=== PATIENT | male | born 1970 | race Caucasian/White ===

== ENCOUNTER 2016-12-23 08:04 | Day surgery (SDC) | payer OTHER ==
--- NOTE | 2016-12-02 06:04 | History and Physical ---
History & Physical CC: End stage renal disease on dialysis HPI: Mr. Tapia states that he has been on dialysis through a left forearm arteriovenous fistula since July of 2015 and it has been functioning well until recently. He is now having difficulty with his runs at dialysis. He denies other complaints at this time including headaches, fevers, chills, dizziness, chest pain, shortness of breath, abdominal pain, nausea, vomiting, diarrhea, constipation, dysuria, hematuria, rest pain, claudication, nonhealing wounds or ulcers or other complaints. ALLERGIES: PENICILLIN. HOME MEDICATIONS: Reconciled on the chart and include the following: Amlodipine, aspirin, atorvastatin, Benadryl, famotidine, Lantus, levothyroxine, metoprolol, NovoLog FlexPen, Renagel, tamsulosin and Tylenol. PAST MEDICAL HISTORY: Positive for end-stage renal disease on hemodialysis, coronary artery disease, myocardial infarction, hypertension, hypercholesterolemia, type 2 diabetes mellitus on insulin, hypothyroidism. PAST SURGICAL HISTORY: Positive for removal of scar tissue from his right eye, left forearm arteriovenous fistula creation and coronary artery bypass grafting x5 in 2013. FAMILY HISTORY: Positive for bladder cancer, coronary artery bypass grafting, carotid stenosis, diabetes mellitus, hypertension, TIA and tobacco use in his mother, [place], heart disease, hypertension and tobacco abuse in his father. SOCIAL HISTORY: Negative for tobacco, alcohol or drug use. REVIEW OF SYSTEMS: Negative for fatigue, fevers, sweats, weight loss, exercise intolerance, abnormal moles or rashes, vision changes or photophobia, ear pain, sinus problems or sore throat, cough, shortness of breath, hemoptysis or wheezing, chest pain, palpitations or syncope. He admits to occasional edema of his bilateral lower extremities. He denies abdominal pain, nausea, vomiting , diarrhea, constipation, dysuria, hematuria, rest pain, claudication, muscle weakness, headaches, dizziness, numbness or seizures. PHYSICAL EXAM: His vital signs today are as follows: Blood pressure of 154/70 in the right arm and unable to obtain left arm due to his AV fistula. His heart rate is 65, oxygen saturation was 99% on room air. The patient is 66 inches tall and weighs 227 pounds. Constitutional: In general, patient is an obese and mildly chronically ill-appearing middle-aged male in no acute distress. He ambulates without assistance and is active, alert and oriented x4 with normal recent and remote memory. His head is normocephalic and atraumatic. His eyes are EOMI. His ENMT exam demonstrates no hearing loss, rhinorrhea or pharyngeal erythema. Neck is supple, nontender with midline trachea without masses or crepitus. Lung exam demonstrates no dyspnea. They are decreased slightly throughout, but are clear to auscultation bilaterally. Cardiovascular exam demonstrates a nondisplaced apical impulse with a regular rate and rhythm without murmurs, lifts, heaves, thrills or gallops. Peripheral pulses are full and equal in all extremities unless otherwise noted, specifically they are normal in his carotid, brachial, radial and femoral pulses. His bilateral lower extremity distal pulses are +2 DP and PT. He has brisk capillary refill and no sign of distal ischemia. He has no bruits noted in his carotid, abdominal or femoral areas. Abdomen soft, nontender with normoactive bowel sounds in all 4 quadrants without guarding or rebound. There is no flank or CVA tenderness. There are no pulsatile mass appreciable. There are no surgical scars noted aside from his chest scar from his cardiac surgery. His abdomen is somewhat distended due to body habitus, but it does appear to be soft. His bilateral upper extremities demonstrate no cyanosis, edema, clubbing, varicosities or ulcers. His bilateral lower extremities demonstrate + 1 edema. There is no significant varicosities or ulcerations and no discoloration. Neurologically, patient is grossly intact cranial nerves and grossly intact sensation. His left forearm does demonstrate good thrill and bruit through his wrist arteriovenous fistula. ASSESSMENT: End-stage renal disease on hemodialysis. Malfunctioning av fistula left arm PLAN: Patient is admitted for a fistulogram and possible intervention. I have discussed the risks options and benefits of the procedure with the patient. The patient understands the risks options and benefits and agrees to the procedure.
[2016-12-23] VITALS (9 sets, daily range): BP systolic 122–139; BP diastolic 67–79; PULSE 66–68; TEMP 36.5–36.7; O2SAT 97–100; Ht 152.4 cm; Wt 102.0 kg
[~2016-12-23] VITALS: Ht 152.4 cm; Wt 102.0 kg
[~2016-12-23 08:04] MED LIST: ACET-1256 PO; ASPI81TA28 PO; ATOR-26 PO; CLINDAMYCIN 600 MG/54 ML D5W IV SCH; CRG125 PO; D5W AND 1/4NSS 1,000 ML IV SCH; D5W AND 1/4NSS 1000 ML IV SCH; DIPH1TAB PO; IMDSR30 PO; INSDGI SC; LEVO25TA5 PO; NRV5 PO; NTRGSL/4 UT; NVLGI SC; SEVE800T7 PO; TAMS0.4C38 PO
[2016-12-23] MEDS ORDERED: IMDSR/30 PO (08:42)
[2016-12-23] MEDS ORDERED: AMLO-114 PO (08:42)
[2016-12-23] MEDS ORDERED: CRG125 PO (08:42)
--- NOTE | 2016-12-23 09:56 | Procedure Note ---
Pre-Mod Sedation Assessment General Date of Moderate Sedation: Dec 23, 2016. Vital Signs: Vital Signs Past 12 Hours Date Time Temp Pulse Resp B/P Pulse Ox O2 Delivery O2 Flow Rate FiO2 12/23/16 09:02 36.6 68 18 139/79 100 Room Air Pre-Sedation Airway Assessment Oral Cavity: WNL Smoking Status: Never Smoker Mallampati Classification: Class I ASA Classification: Class II Notes The planned sedation has been discussed with the patient and consent obtained. I have identified the patient, determined the appropriateness of sedation and have assessed the patient immediately prior to the procedure. All medicine(s) and interventions are by my order.
--- NOTE | 2016-12-23 09:56 | History & Physical Bridge Note ---
H&P Re-Evaluation Bridge Note: I have examined the patient, reviewed the History & Physical and in the interval since the performance of the History & Physical I have noted the following changes of clinical significance: No changes noted
[2016-12-23] MEDS ORDERED: FENTANYL CITRATE INJ 50 MCG/1 ML 2 ML VIAL ONE (10:23)
[2016-12-23] MEDS ORDERED: MIDAZOLAM HCL 1 MG/ML 2ML VIAL ONE (10:24)
[2016-12-23] MEDS: CLINDAMYCIN 600 MG/54 ML D5W IV SCH (10:30)
[2016-12-23] MEDS ORDERED: FENTANYL CITRATE INJ 50 MCG/1 ML 2 ML VIAL IV ONE (10:48)
[2016-12-23] MEDS ORDERED: HEPARIN SOD (PORCINE) 1000 UNIT/ML 10 ML VIAL ONE (10:54)
[2016-12-23] MEDS ORDERED: HEPARIN SOD (PORCINE) 1000 UNIT/ML 10 ML VIAL IV ONE (10:59)
[2016-12-23] MEDS ORDERED: NITROGLYCERIN/D5W 100MCG/ML 20ML SYR ONE (11:56)
[2016-12-23] MEDS ORDERED: LIDOCAINE HCL 1% 20 ML VIAL INJ ONE (12:04)
[2016-12-23] MEDS ORDERED: D5W AND 1/4NSS 1,000 ML IV SCH (12:04)
[2016-12-23] MEDS ORDERED: OPTIRAY 300 IV ONE (12:04)
--- NOTE | 2016-12-23 12:08 | [facility] Post Operative Brief Note ---
Immediate Operative Summary Operative Date Dec 23, 2016. Pre-Operative Diagnosis Malfunctioning Fistula Post-Operative Diagnosis Same Procedure(s) Performed Arteriogram, COSTUME CUTTER Venous Balloon assisted maturation (BAM) Surgeon Dr. Schmidt Lard Mixer Surgeon(s) Dr. Serrano Estimated Blood Loss 5 Findings Good thrill Specimens None Anesthesia Local Complication(s) None Disposition
--- NOTE | 2016-12-23 12:09 | Discharge Instructions ---
Discharge Instructions Date of Service Dec 23, 2016. Visit Reason for Visit: End Stage Renal Disease Discharge Discharge Diagnosis / Problem: Non maturation of left arm arteriovenous fistula Discharge Goals Goal(s): Therapeutic intervention Activity Recommendations Activity Limitations: per Instructions/Follow-up section Anesthesia . Post Anesthesia Instructions: If you have had General Anesthesia or IV Sedation: * Do not drive today. * Resume driving when surgeon permits. * Do not make important decisions or sign legal documents today. * Call surgeon for: 1. Temperature elevations greater than 101 degrees F. 2. Uncontrollable pain. 3. Excessive bleeding. 4. Persistent nausea and vomiting. 5. Medication intolerance (nausea, vomiting or rash). * For nausea and vomiting use only clear liquids such as: tea, soda, bouillon until nausea subsides, then gradually increase diet as tolerated. * If you have any concerns or questions, call your surgeon's office. If physician is unavailable and it is an emergency, call 911 or go to the nearest emergency room. . Instructions / Follow-Up Instructions / Follow-Up Call [phone] to schedule a follow up appointment if one not already scheduled. SPECIAL CARE INSTRUCTIONS: Medications: * Continue to take your medications as directed. If you have been given a prescription for Plavix, please fill it immediately and take as directed. Incision Care: * Your puncture site may have some bruising and minor swelling for about one week. * You will have a small dressing covering your puncture site. You may remove the dressing after 24 hours and shower. You may let the warm soapy water run over it, but be sure to dry the puncture site well and keep it dry. * DO NOT IMMERSE THE INCISION IN A TUB/POOL/etc. UNTIL HEALED. * Puncture sites should be kept covered with a band-aid until it begins to heal. Restrictions: * Depending on whether you leg or arm was punctured to access the arteries, you will be required to lay flat, hold your arm still, or both, for about 4 hours after the procedure to prevent bleeding. * Limit your activity for the first 48 hours. You may walk and go up and down steps. Avoid excessive bending or movement at the puncture site. Possible Complications: * Excessive Swelling - after blood flow is improved you may notice increased swelling in the lower legs. This is a normal response. This usually depends on the amount of blockages in the leg, how long they have been there prior to your procedure and how much blood flow was restored. Elevating your legs will help to improve this. Please notify our office ([phone] ) if the swelling does not go away after lying in bed overnight. * Infection/Drainage/Bleeding - Drainage or bleeding from the puncture site should be minimal. If you have excessive bleeding or drainage, call our office ([phone]) right away. * Pain - You may experience some mild pain or soreness at your puncture site. If your pain does not improve, please contact our office ([phone]). Call your doctor and seek emergent treatment if you develop: * Temperature above 101 degrees * Any fever or chills * Any redness or purulent drainage from the puncture site * Any new dusky/blue colored toes or feet with coolness or sharp or aching pain. SKIN IRRITATION: * You may experience some redness and/or swelling in the area where radiation was administered. If any skin irritation occurs, please contact your family physician. FOLLOW UP VISIT: Keep any scheduled doctor appointments. Diet Recommendations Recommended Home Diet: resume previous diet Procedures Procedures Performed: Arteriogram, BELT PUNCHER Venous Balloon assisted maturation (BAM) Pending Studies Studies pending at discharge: no Medical Emergencies . Who to Call and When: Medical Emergencies: If at any time you feel your situation is an emergency, please call 911 immediately. . Non-Emergent Contact Non-Emergency issues call your: Surgeon . . "Provider Documentation" section prepared by Michael Serrano.
[2016-12-23] MEDS ORDERED: OXYCODONE/ACETAMINOPHEN 5-325 TAB PO PRN (12:15)
--- NOTE | 2016-12-23 13:10 | DIAGNOSTIC IMAGING REPORT ---
DATE OF PROCEDURE: 12/23/2016 PREOPERATIVE DIAGNOSIS: Malfunctioning left wrist AV fistula. POSTOPERATIVE DIAGNOSIS: Same. PROCEDURES: 1. Ultrasound-guided left brachial access and a left upper extremity arteriogram. 2. Balloon angioplasty of left proximal and mid cephalic vein for fistula maturation. SURGEON: Dr. Michael Serrano. USABILITY SPECIALIST: Dr. Chapincito Schmidt. ANESTHESIA: Local plus fentanyl. COMPLICATIONS: None. INDICATIONS: This is a 46-year-old gentleman with end-stage renal disease currently on dialysis. He currently uses a peritoneal dialysis catheter. Previously, it had been placed in the left radiocephalic AV fistula. This was noted to be quite pulsatile and without a thrill. His hospital medical biller recommended a fistulogram and/or arteriogram for maintenance of his left arm hemodialysis access. He understood the risks, benefits and alternatives of the procedure and agreed to proceed. DESCRIPTION OF PROCEDURE: The patient was taken to the endovascular suite and placed in the supine position. The left upper extremity was prepped and draped in the normal sterile fashion. A time-out was performed and all parties agreed to correct patient and procedure to be performed. Appropriate surgical prophylactic antibiotics were administered within 1 hour of the incision. Under ultrasound guidance, the left brachial artery was accessed on the first attempt. This was done with a micropuncture needle. The needle was changed to a micropuncture catheter over micropuncture wire to. Left upper extremity arteriogram showed a widely patent brachial artery. There was a good arterial flow to the hand. The fistula could be identified coming off the radial artery at the level of the wrist. There was a fairly long segment of high-grade stenosis throughout the proximal portion of the fistula. Further angiogram pictures also showed several areas of stenosis in the outflow cephalic vein. We elected to use a balloon to aid in maturation of the cephalic vein. Therefore, an 0.014 wire was brought onto the field and the sheath was upsized to a 4-Slovenian sheath. Using the 0.014 wire and an angled glide catheter, I was able to navigate into the fistula. The wire passed easily into the cephalic vein outflow. The proximal cephalic vein was sequentially angioplastied with 2 mm balloon followed by a 3 mm balloon followed by a 4 mm balloon. The completion angiography after this showed moderate stenosis more distal in the cephalic vein outflow. Therefore, this area was also ballooned with the 4 mm balloon. Completion angiogram showed widely patent brachial and radial arteries. The fistula filled nicely and the outflow veins all were patent. Following balloon angioplasty, there was a much improved thrill in the fistula. There were Doppler signals in the radial, ulnar and palmar arch on to the digital arteries. The patient's hand was warm. He was transferred to recovery room in satisfactory condition. There were no apparent complications. [facility]OSPITALElizabeth
[2017-02-03] MEDS ORDERED: FRS/80 PO (09:45)
== END 2016-12-23 14:45 | disposition home or self-care (01) ==
LOC: C.ACU 08:04
PROVIDERS: ATTEND Surgery Vascular Surgery
DX: T82.898A Other specified complication of vascular prosthetic devices, implants and grafts, initial encounter (principal); Y83.1 Surgical operation with implant of artificial internal device as the cause of abnormal reaction of the patient, or of later complication, without mention of misadventure at the time of the procedure; I12.0 Hypertensive chronic kidney disease with stage 5 chronic kidney disease or end stage renal disease; E11.22 Type 2 diabetes mellitus with diabetic chronic kidney disease; N18.6 End stage renal disease; Z79.4 Long term (current) use of insulin; E03.9 Hypothyroidism, unspecified; Z99.2 Dependence on renal dialysis; I25.2 Old myocardial infarction; Z80.52 Family history of malignant neoplasm of bladder

== ENCOUNTER → 2017-02-03 | Day surgery (SDC) | payer OTHER ==
[2017-01-24 09:51] VITALS: Ht 167.6 cm; Wt 104.5 kg
[~2017-02-03] VITALS: Ht 167.6 cm; Wt 104.5 kg
[~2017-02-03] MED LIST changes: +500ML BSSPLUS 0.5ML EPI1:1000 IRRIG ONE; +ACETAMINOPHEN 325 MG TAB PO PRN; +AMLO-114 PO; +ATROPINE SULFATE 0.1 MG/ML 5ML SYR IV PRN; +ATROPINE SULFATE 1% OP OINT PER APPLICATION CHARGE ONE; +BD INSULIN; +BSS FLUSH ONE; +BUPIVACAINE HCL 0.75% 10 ML AMP/VIAL ONE; -CLINDAMYCIN 600 MG/54 ML D5W IV SCH; -D5W AND 1/4NSS 1,000 ML IV SCH; -D5W AND 1/4NSS 1000 ML IV SCH; +DEXAMETHASONE SOD INJ 4 MG/ML VIAL ONE; -DIPH1TAB PO; +DIPH1TAB87 PO; +EpHEDrine SULFATE INJ 50 MG/ML AMP IV PRN; +EpINEphrine INJ 1MG/ML AMP 1 MG/ML AMP ONE; +FENTANYL CITRATE INJ 50 MCG/1 ML 2 ML VIAL IV PRN; +FRS/80 PO; +HYALURONIDASE HUMAN 150 UNIT/ML INJ ONE; +IMDSR/30 PO; -IMDSR30 PO; +INSPMPNVLG; +LACTATED RINGER'S 1000ML 500 ML IV SCH; +LIDOCAINE HCL 2% 2 ML VIAL (20MG/ML) ONE; +LIDOCAINE MPF 4% INJ INJ ONE; +MIDAZOLAM HCL 1 MG/ML 2ML VIAL ONE; +NEOMYCIN/POLYMYX/DEXAMETH OP OINT PER APP CHARGE ONE; -NRV5 PO; +OCUCOAT 1 ML SOLN IO ONE; +ONDANSETRON INJ 2 MG/ML 2 ML VIAL IV PRN; +PHENYLEPHRINE HCL 2.5% OP SOLN PER DROP CHARGE OPL SCH; +PROPARACAINE 0.5% OP SOLN PER DROP CHARGE OPL SCH; +PROPOFOL IV EMULSION 10 MG/ML 20 ML VIAL IV ONE; +TETRACAINE HCL (OPHTH) 60 DROPS/4 ML BTL OP ONE; +TIMOLOL MALEATE 0.5% OP SOLN PER DROP CHARGE ONE; +TROPICAMIDE 1% OP SOLN PER DROP CHARGE OPL SCH; +VANCOMYCIN HCL 1000MG/20ML VIAL ONE
[2017-02-03] MEDS: PHENYLEPHRINE HCL 2.5% OP SOLN PER DROP CHARGE OPL SCH ×2 (09:51→09:56)
[2017-02-03] MEDS: TROPICAMIDE 1% OP SOLN PER DROP CHARGE OPL SCH ×2 (09:52→09:57)
--- NOTE | 2017-02-03 11:01 | History & Physical Bridge - SC ---
H&P Re-Evaluation Bridge Note: pt has diabetic retinopathy of the left eye and is here for vitrectomy of the left eye. I have examined the patient, reviewed the History & Physical and in the interval since the performance of the History & Physical I have noted the following changes of clinical significance: No changes noted
--- NOTE | 2017-02-03 12:36 | [facility] Operative Report ---
Operative Report Date of Service Feb 03, 2017. Operative Report PREOPERATIVE DIAGNOSIS: Diabetic retinopathy with vitreous hemorrhage, epiretinal membrane and traction, left eye. ICD 10: H43.12, H35.372 POSTOPERATIVE DIAGNOSIS: same. PROCEDURE: 1. Pars plana vitrectomy, 23 gauge. 2. Membrane peeling. 3. Endolaser. All to the left eye. CPT CODE: 55110 SURGEON: Santosh Abarca D.O. COMPLICATIONS: None. ESTIMATED BLOOD LOSS: None. SPECIMENS: None. ANESTHESIA: Retrobulbar block and MAC INDICATIONS FOR PROCEDURE: Surgery is indicated to decrease risk of vision loss and potentially improve vision. CONSENT: The risks, benefits and alternatives were discussed with the patient including but not limited to decreased visual acuity, failure to achieve desired results, loss of the eye, infection, pain, glaucoma, lens changes, retinal tears, retinal detachment, the need for more procedures, drooping of the eyelid, blindness, and double vision. The patient is aware of risks and consents to the surgery. Consent is signed and on the chart. OPERATION AND FINDINGS: The patient was brought to the operating room where the patient was identified by name, date, and medical record number. The surgical site was confirmed with the informed written consent. The patient was sedated by the anesthesiology team after which a 50:50 mixture of 4% lidocaine and 0.75% bupivacaine with hyaluronidase was administered in a standard retrobulbar fashion. A total of 4 ml was administered without difficulty. The patient was then prepped and draped in the usual sterile manner for retinal surgery. A wire lid speculum was placed and an Rasta 23-gauge trocar cannula system was employed. The inferior temporal trocar cannula was first placed in an angled fashion 3.75mm posterior to the surgical limbus and the infusion cannula was inserted into this cannula after which the intravitreal position was verified prior to turning the infusion on. Two more trocar cannulas were then inserted in an angled fashion, one in the superior temporal, and one in the superior nasal quadrant both 3.75mm posterior to the surgical limbus. A light pipe and vitrector were then introduced into the eye and the BIOM wide angle viewing system was brought into place. Posterior inspection revealed partially regressed proliferative diabetic retinopathy with fibrovascular membranes along the inferior temporal arcade. There was also noted well placed previous laser treatment. Standard core vitrectomy was performed and the vitreous was insured to be totally detached from the posterior pole with the aid of the vitrector. The areas of regressed neovascularization were segmented with the vitrector and scissors. Endolaser was used to perform fill-in paredes retinal photocoagulation. At this point a flat contact lens was placed on the surface of the eye and a flex loop and ILM forceps were used to gently peel the diabetic membranes and segment them with scissors and the vitrector without difficulty. At this point scleral depression was performed for 360 degrees and no retinal tears or detachments were noted. The trocar cannulas were then removed and 8-0 Vicryl suture was placed at all the sites. The intraocular pressure was found to be within normal limits by palpation and subconjunctival injections of Kefzol and dexamethasone were administered inferiorly and superiorly. The wire lid speculum was removed. Maxitrol was applied to the surface of the eye. A light patch and shield were taped over the surface of the eye and the patient left the Operating Room in stable condition having tolerated the procedure well. DISPOSITION: The patient has an appointment the following morning in the Ophthalmology Clinic. The patient is to call immediately if there are any problems overnight. I attest to the content of the Intraoperative Record and any orders documented therein. Any exceptions are noted below.
--- NOTE | 2017-02-03 12:40 | Discharge Instructions-SurgCtr ---
Discharge Instructions Date of Service Feb 03, 2017. Visit Reason for Visit: Vitreous Hemorrhage Discharge Discharge Diagnosis / Problem: same Discharge Goals Goal(s): Improve function Activity Recommendations Activity Limitations: per Instructions/Follow-up section Anesthesia . Post Anesthesia Instructions: If you have had General Anesthesia or IV Sedation: * Do not drive today. * Resume driving when surgeon permits. * Do not make important decisions or sign legal documents today. * Call surgeon for: 1. Temperature elevations greater than 101 degrees F. 2. Uncontrollable pain. 3. Excessive bleeding. 4. Persistent nausea and vomiting. 5. Medication intolerance (nausea, vomiting or rash). * For nausea and vomiting use only clear liquids such as: tea, soda, bouillon until nausea subsides, then gradually increase diet as tolerated. * If you have any concerns or questions, call your surgeon's office. If physician is unavailable and it is an emergency, call 911 or go to the nearest emergency room. . Instructions / Follow-Up Instructions / Follow-Up * May take Tylenol if needed for discomfort. * Do NOT remove eye shield. * NO straining, heavy lifting (>15 pounds) or bending below waist. * Avoid getting water or soap directly into operative eye. * Do NOT rub eye. If you experience increasing eye pain not relieved by medication, please contact us immediately at [phone]. If you are unable to reach someone at the above number, call [phone] and ask to speak with the EYE DOCTOR [facility] COIL WINDER. Inform them that you are a Dr. Abarca patient who had recent surgery. Diet Recommendations Home Diet: resume previous diet Procedures Procedures Performed: Left Eye 23 Gauge Vitrectomy With Laser, Membrane Peeling Pending Studies Studies pending at discharge: no Medical Emergencies . Who to Call and When: Medical Emergencies: If at any time you feel your situation is an emergency, please call 911 immediately. . Non-Emergent Contact Non-Emergency issues call your: Raw Stock Machine Feeder . . "Provider Documentation" section prepared by Santosh Abarca. .
[2017-02-03 12:44] VITALS: TEMP 36.6
--- NOTE | 2017-02-03 12:48 | Anesthesia Progress Nt - [facility] ---
Anesthesia Post Op Note Date & Time Feb 03, 2017 at 12:47 Vital Signs Pain Intensity: 0 Vital Signs Past 12 Hours Date Time Temp Pulse Resp B/P Pulse Ox O2 Delivery O2 Flow Rate FiO2 02/03/17 12:44 36.6 78 18 168/83 98 Room Air 02/03/17 09:42 36.6 75 20 184/90 99 Room Air Notes Mental Status: alert / awake / arousable, participated in evaluation Pt Amnestic to Procedure: Yes Nausea / Vomiting: adequately controlled Pain: adequately controlled Airway Patency, RR, SpO2: stable & adequate BP & HR: stable & adequate Hydration State: stable & adequate Anesthetic Complications: no major complications apparent
[2017-02-03 12:54] VITALS: BP 172/83; PULSE 77; O2SAT 97
== END | disposition home or self-care (01) ==
LOC: X.SURG 08:31
PROVIDERS: ATTEND Ophthalmology
DX: E11.3592 Type 2 diabetes mellitus with proliferative diabetic retinopathy without macular edema, left eye (principal); H43.12 Vitreous hemorrhage, left eye; H35.372 Puckering of macula, left eye; E11.42 Type 2 diabetes mellitus with diabetic polyneuropathy; I25.5 Ischemic cardiomyopathy; I25.2 Old myocardial infarction; E66.9 Obesity, unspecified; I25.10 Atherosclerotic heart disease of native coronary artery without angina pectoris; Z95.1 Presence of aortocoronary bypass graft; Z79.4 Long term (current) use of insulin; Z79.82 Long term (current) use of aspirin

== ENCOUNTER 2017-06-12 10:38 | Emergency (ER) | payer OTHER ==
[~2017-06-12] VITALS: Ht 167.6 cm; Wt 105.9 kg
[~2017-06-12 10:38] MED LIST changes: -500ML BSSPLUS 0.5ML EPI1:1000 IRRIG ONE; -ACETAMINOPHEN 325 MG TAB PO PRN; -ATROPINE SULFATE 0.1 MG/ML 5ML SYR IV PRN; -ATROPINE SULFATE 1% OP OINT PER APPLICATION CHARGE ONE; -BD INSULIN; -BSS FLUSH ONE; -BUPIVACAINE HCL 0.75% 10 ML AMP/VIAL ONE; -DEXAMETHASONE SOD INJ 4 MG/ML VIAL ONE; +DIPH1TAB PO; -DIPH1TAB87 PO; -EpHEDrine SULFATE INJ 50 MG/ML AMP IV PRN; -EpINEphrine INJ 1MG/ML AMP 1 MG/ML AMP ONE; -FENTANYL CITRATE INJ 50 MCG/1 ML 2 ML VIAL IV PRN; -HYALURONIDASE HUMAN 150 UNIT/ML INJ ONE; -INSPMPNVLG; -LACTATED RINGER'S 1000ML 500 ML IV SCH; -LIDOCAINE HCL 2% 2 ML VIAL (20MG/ML) ONE; -LIDOCAINE MPF 4% INJ INJ ONE; -MIDAZOLAM HCL 1 MG/ML 2ML VIAL ONE; -NEOMYCIN/POLYMYX/DEXAMETH OP OINT PER APP CHARGE ONE; -OCUCOAT 1 ML SOLN IO ONE; -ONDANSETRON INJ 2 MG/ML 2 ML VIAL IV PRN; -PHENYLEPHRINE HCL 2.5% OP SOLN PER DROP CHARGE OPL SCH; -PROPARACAINE 0.5% OP SOLN PER DROP CHARGE OPL SCH; -PROPOFOL IV EMULSION 10 MG/ML 20 ML VIAL IV ONE; -TETRACAINE HCL (OPHTH) 60 DROPS/4 ML BTL OP ONE; -TIMOLOL MALEATE 0.5% OP SOLN PER DROP CHARGE ONE; -TROPICAMIDE 1% OP SOLN PER DROP CHARGE OPL SCH; -VANCOMYCIN HCL 1000MG/20ML VIAL ONE
[2017-06-12 10:41] VITALS: PULSE 69; TEMP 36.8; O2SAT 100; Ht 167.6 cm; Wt 105.9 kg
[2017-06-12] MEDS ORDERED: INSDGI SC (11:17)
[2017-06-12] MEDS ORDERED: INSPMPNVLG (11:17)
[2017-06-12] MEDS ORDERED: BD INSULIN (11:17)
--- NOTE | 2017-06-12 11:30 | EMERGENCY ROOM VISIT NOTE ---
History Report prepared by Nicole: Faiza Alcantara Under the Supervision of: Dr. Brady Pink M.D. First contact with patient: 11:14 Chief Complaint: LEG PAIN,LEG INJURY Stated Complaint: UPPER LEG PAIN History of Present Illness The patient is a 46 year old male who presents to the Emergency Room with complaints of persistent bilateral leg pain that began last evening. He currently rates his discomfort as a 6/10 in severity. The patient states that last evening he had his normal dialysis, noting that he gets 8 hours each night. He states that he walked over to his neighbor's, but states that he developed pain from his knees up. The patient denies any increased swelling. He states that his legs hurt less today than they did yesterday. The patient reports worsened pain with ambulation. He reports a history of a cardiac bypass and diabetes, but denies any history of arthritis. The patient denies being on any anti-coagulants. Source of History: patient Onset: last evening Position: leg (bilateral) Symptom Intensity: 6/10 Timing: other (persistent) Modifying Factors (Worsening): other (ambulation) Review of Systems All systems have been listed, reviewed, and are negative other than those previously mentioned. Please see Additional Medical History Sheet. Past Medical & Surgical Medical Problems: (1) Diabetes mellitus, type II (2) Diabetic neuropathy (3) Diabetic retinopathy (4) Dyslipidemia (5) ESRD (end stage renal disease) (6) Heart disease (7) Hypertension (8) Hypothyroidism (9) Lymphadenopathy (10) Myocardial infarction (11) SOB (shortness of breath) (12) Splenomegaly (13) Systolic CHF, chronic (14) Thrombocytopenia Surgical Problems: (1) H/O heart bypass surgery (2) Hx of CABG Family History Cancer Diabetes mellitus Heart disease Hypertension Kidney disease Kidney stones Social History Smoking Status: Never Smoker Smokeless Tobacco Use: No Alcohol Use: none Drug Use: none Marital Status: single Housing Status: lives with family Occupation Status: employed Current/Historical Medications Scheduled Amlodipine (Norvasc), 10 MG PO QAM Aspirin (Aspirin Ec), 81 MG PO BID Atorvastatin (Lipitor), 80 MG PO QPM Carvedilol (Carvedilol), 1.5 TAB PO QAM Furosemide (Lasix), 80 MG PO BID Insulin Aspart (novoLOG INSULIN PUMP ), 1 EA N/A UD Insulin Glargine (Lantus), 0 SC AMPM Isosorbide Mononitrate (Isosorbide Mononitrate ER), 1 TAB PO QAM Levothyroxine Sodium (Levothyroxine Sodium), 1 TAB PO QAM Sevelamer Carbonate (Renvela), 4 TAB PO TIDM Tamsulosin Hcl (Flomax), 0.4 MG PO QPM Scheduled PRN Acetaminophen (Tylenol), 1 TAB PO HS PRN for Pain Diphenhydramine Hcl (Benadryl Allergy), 1 TAB PO QD PRN for ALLERGIC REACTION Nitroglycerin (Nitrostat), 0.4 MG UT PRN PRN for Chest Pain Miscellaneous Medications [Bd Insulin Syr] Allergies Coded Allergies: Penicillins (Verified Allergy, Severe, ANAPHYLAXIS, 06/12/17) Physical Exam Vital Signs Date Time Temp Pulse Resp B/P (MAP) Pulse Ox O2 Delivery O2 Flow Rate FiO2 06/12/17 14:32 152/83 06/12/17 13:23 146/78 06/12/17 10:41 36.8 69 18 133/80 100 Room Air Physical Exam GENERAL: Patient awake, alert, oriented x 3. Patient follows commands. Patient does not appear toxic. Patient is adequately hydrated and well- nourished. No signs of infection. SKIN: Well healed midline sternotomy scar. No erythema, pallor, cyanosis or rash HEENT: Normal head, pupils equal, reactive to light and accommodation. Neck: Without adenopathy, no neck vein distention. LUNGS: Clear to auscultation. No wheezes, no rales, no rhonchi. HEART: No murmurs. No gallops. No rubs ABDOMEN: Peritoneal shunt in right side of abdomen. No inguinal hernias palpated. No masses, no rebound, no hepatomegaly or splenomegaly. PELVIS: Pelvic rock negative. EXTREMITIES: Full range of motion of both hips and knees with slight swelling of both lower legs, 1+ nonpitting pretibial edema NEUROLOGIC: Cranial nerves II-XII within normal limits. No gross motor sensory function deficits. Medical Decision & Procedures ER Provider Diagnostic Interpretation: US results are interpretations by the radiologist and per my review. BILATERAL LOWER EXTREMITY VENOUS DOPPLER HISTORY: Bilateral leg pain upper legs COMPARISON STUDY: None. FINDINGS: There is normal compressibility, flow, and augmentation within the bilateral lower extremity deep venous systems. IMPRESSION: No DVT within the right or left lower extremity. Electronically signed by: Dale Monet M.D. 06/12/2017 12:52 PM Dictated Date/Time: 06/12/2017 12:52 PM Laboratory Results 06/12/17 11:35 Red Blood Count 3.57, Mean Corpuscular Volume 85.7, Mean Corpuscular Hemoglobin 31.4, Mean Corpuscular Hemoglobin Concent 36.6, Mean Platelet Volume 11.7, Neutrophils (%) (Auto) 69.0, Lymphocytes (%) (Auto) 17.6, Monocytes (%) (Auto) 7.2, Eosinophils (%) (Auto) 5.7, Basophils (%) (Auto) 0.3, Neutrophils # (Auto) 4.25, Lymphocytes # (Auto) 1.08, Monocytes # (Auto) 0.44, Eosinophils # (Auto) 0.35, Basophils # (Auto) 0.02 06/12/17 11:35 Test 06/12/17 11:35 06/12/17 12:20 White Blood Count 6.15 K/uL (4.8-10.8) Red Blood Count 3.57 M/uL (4.7-6.1) Hemoglobin 11.2 g/dL (14.0-18.0) Hematocrit 30.6 % (42-52) Mean Corpuscular Volume 85.7 fL (80-100) Mean Corpuscular Hemoglobin 31.4 pg (25-34) Mean Corpuscular Hemoglobin Concent 36.6 g/dl (32-36) Platelet Count 36 K/uL (130-400) Mean Platelet Volume 11.7 fL (7.4-10.4) Neutrophils (%) (Auto) 69.0 % Lymphocytes (%) (Auto) 17.6 % Monocytes (%) (Auto) 7.2 % Eosinophils (%) (Auto) 5.7 % Basophils (%) (Auto) 0.3 % Neutrophils # (Auto) 4.25 K/uL (1.4-6.5) Lymphocytes # (Auto) 1.08 K/uL (1.2-3.4) Monocytes # (Auto) 0.44 K/uL (0.11-0.59) Eosinophils # (Auto) 0.35 K/uL (0-0.5) Basophils # (Auto) 0.02 K/uL (0-0.2) RDW Standard Deviation 40.4 fL (36.4-46.3) RDW Coefficient of Variation 13.0 % (11.5-14.5) Immature Granulocyte % (Auto) 0.2 % Immature Granulocyte # (Auto) 0.01 K/uL (0.00-0.02) Platelet Estimate DECREASED Prothrombin Time 10.6 SECONDS (9.0-12.0) Prothromb Time International Ratio 1.0 (0.9-1.1) Activated Partial Thromboplast Time 24.5 SECONDS (21.0-31.0) Partial Thromboplastin Ratio 0.9 Anion Gap 11.0 mmol/L (3-11) Est Creatinine Clear Calc Drug Dose 10.7 ml/min Estimated GFR () 6.5 Estimated GFR (Non- 5.6 BUN/Creatinine Ratio 5.5 (10-20) Calcium Level 9.0 mg/dl (8.5-10.1) Total Bilirubin 0.7 mg/dl (0.2-1) Aspartate Amino Transf (AST/SGOT) 20 U/L (15-37) Alanine Aminotransferase (ALT/SGPT) 35 U/L (12-78) Alkaline Phosphatase 122 U/L (45-117) Total Protein 7.2 gm/dl (6.4-8.2) Albumin 3.7 gm/dl (3.4-5.0) Globulin 3.5 gm/dl (2.5-4.0) Albumin/Globulin Ratio 1.1 (0.9-2) Urine Color YELLOW Urine Appearance CLOUDY (CLEAR) Urine pH 5.5 (4.5-7.5) Urine Specific [place] 1.018 (1.000-1.030) Urine Protein 3+ (NEG) Urine Glucose (UA) 1+ (NEG) Urine Ketones NEG (NEG) Urine Occult Blood 1+ (NEG) Urine Nitrite NEG (NEG) Urine Bilirubin NEG (NEG) Urine Urobilinogen NEG (NEG) Urine Leukocyte Esterase NEG (NEG) Urine WBC (Auto) 1-5 /hpf (0-5) Urine RBC (Auto) 0-4 /hpf (0-4) Urine Hyaline Casts (Auto) 1-5 /lpf (0-5) Urine Epithelial Cells (Auto) 10-20 /lpf (0-5) Urine Bacteria (Auto) 1+ (NEG) Urine Crystals CALCIUM OXALATE (NONE Urine Yeast (Auto) BUDDING (NONE PRSENT) Laboratory results as stated above per my review. Medications Administered Medications (Trade) Dose Ordered Sig/Mitchell Route Start Time Stop Time Status Last Admin Dose Admin Fluconazole (Diflucan Tab) 150 mg STK-MED ONCE .ROUTE 06/12/17 14:38 06/12/17 14:39 DC 06/12/17 14:40 150 MG ECG Indication: other (leg pain) Rate (beats per minute): 66 Rhythm: normal sinus Findings: ST depression (latearlly in leads 1 and AVL), T-wave inversion (in lead 1 and AVL), prolonged QT Comparison ECG Date: 09/27/16 Change: When compared to EKG done on 09/27/16 T wave inversions are new. ED Course 1115: Past medical records reviewed. The patient was evaluated in room C3. A complete history and physical examination was performed. 1333: I reevaluated the patient and he is resting. I discussed the test results with him and I discussed the treatment plan. He is going to have an ambulation trial. 1415: I reevaluated the patient and he is resting comfortably. I discussed the exam findings with him and I discussed the treatment plan. He verbalized complete understanding and agreement. He is ready to go home shortly. 1430: Ordered Diflucan Tab 150 mg PO. Medical Decision Nurses notes reviewed. Medical history sheet reviewed. Differential diagnosis includes but is not limited to: Bilateral DVT, thrombocytopenia, hernia, peripheral edema, fracture, dislocation, degenerative joint disease. Multiple labs and imaging were performed. The patient has no evidence of a DVT. The patient moves both hips and legs without significant difficulty. There is no evidence of a fracture or dislocation. The patient does not appear to have a hernia. The patient improved while here in the ED without medications. The patient may have some underlying degenerative joint disease or generalized musculoskeletal pain. In either case he will be encouraged to use Tylenol for his pain. The patient has yeast noted on his urinalysis and therefore he was placed on Diflucan. The patient will continue all his other medications and dialysis as prescribed. Medication Reconcilliation Current Medication List: was personally reviewed by me Blood Pressure Screening Patient's blood pressure: Elevated blood pressure Blood pressure disposition: Referred to PCP Impression Primary Impression: Bilateral leg pain Additional Impression: Yeast UTI Scribe Attestation The scribe's documentation has been prepared under my direction and personally reviewed by me in its entirety. I confirm that the note above accurately reflects all work, treatment, procedures, and medical decision making performed by me. Departure Information Dispostion Home / Self-Care Referrals Dalton Marcelino III, M.D. (PCP) Forms HOME CARE DOCUMENTATION FORM, IMPORTANT VISIT INFORMATION Patient Instructions My [facility] Additional Instructions Continue all of your current medications as prescribed. Follow-up with your family physician and brim stitcher. 650 mg of Tylenol every 4-6 hours as needed for pain. Problem Qualifiers
[2017-06-12 12:00] LABS: PARTIAL THROMBOPLASTIN RATIO 0.9; PROTHROMBIN TIME (PATIENT) 10.6 SECONDS (9.0-12.0)
[2017-06-12 12:02] LABS: HEMATOCRIT 30.6 % (42-52); MEAN CELL VOLUME 85.7 fL (80-100); MEAN CORPUSCULAR HEMOGLOBIN 31.4 pg (25-34); MEAN CORPUSCULAR HGB CONC 36.6 g/dl (32-36); MEAN PLATELET VOLUME 11.7 fL (7.4-10.4); PLATELET COUNT 36 K/uL (130-400); RED BLOOD COUNT 3.57 M/uL (4.7-6.1); WHITE BLOOD COUNT 6.15 K/uL (4.8-10.8)
[2017-06-12 12:14] LABS: BASO % 0.3 %; BASO ABS # 0.02 K/uL (0-0.2); COMPLETE YES; EOS % 5.7 %; IG% 0.2 %; LYMPH % 17.6 %; LYMPH ABS # 1.08 K/uL (1.2-3.4); MONO % 7.2 %; PLT ESTIMATE DECREASED
[2017-06-12 12:25] LABS: ALB/GLOB RATIO 1.1 (0.9-2); BUN/CREATININE RATIO 5.5 (10-20); POTASSIUM 3.7 mmol/L (3.5-5.1)
[2017-06-12 12:49] LABS: URINE APPEARANCE CLOUDY (CLEAR); URINE BILIRUBIN NEG (NEG); URINE COLOR YELLOW; URINE NITRITE NEG (NEG); URINE PH 5.5 (4.5-7.5); URINE SPECIFIC GRAVITY 1.018 (1.000-1.030); UROBILINOGEN NEG (NEG); ZZUR CULT IF INDIC CLEAN CATCH YES
--- NOTE | 2017-06-12 12:53 | DIAGNOSTIC IMAGING REPORT ---
BILATERAL LOWER EXTREMITY VENOUS DOPPLER HISTORY: Bilateral leg pain upper legs COMPARISON STUDY: None. FINDINGS: There is normal compressibility, flow, and augmentation within the bilateral lower extremity deep venous systems. IMPRESSION: No DVT within the right or left lower extremity. Electronically signed by: Dale Monet M.D. 06/12/2017 12:52 PM Dictated Date/Time: 06/12/2017 12:52 PM
[2017-06-12 13:00] LABS: MANUAL MICROSCOPIC REQUIRED? NO; REVIEW REQ? YES
[2017-06-12] MEDS ORDERED: FLUCONAZOLE 100 MG TAB PO ONE (14:30)
[2017-06-12 14:32] VITALS: BP 152/83
[2017-06-12] MEDS ORDERED: FLUCONAZOLE 50 MG TAB ONE (14:38)
== END 2017-06-12 15:02 | disposition home or self-care (01) ==
LOC: C.EDB 10:39 → C.EDC 15:02
DX: M79.651 Pain in right thigh (principal); M79.652 Pain in left thigh; B37.49 Other urogenital candidiasis; I12.0 Hypertensive chronic kidney disease with stage 5 chronic kidney disease or end stage renal disease; N18.6 End stage renal disease; E11.21 Type 2 diabetes mellitus with diabetic nephropathy; E11.319 Type 2 diabetes mellitus with unspecified diabetic retinopathy without macular edema; E78.5 Hyperlipidemia, unspecified; E03.9 Hypothyroidism, unspecified; I50.22 Chronic systolic (congestive) heart failure; I51.9 Heart disease, unspecified; I25.2 Old myocardial infarction; Z95.1 Presence of aortocoronary bypass graft; Z79.82 Long term (current) use of aspirin; Z79.4 Long term (current) use of insulin; Z79.899 Other long term (current) drug therapy; Z88.0 Allergy status to penicillin; Z80.9 Family history of malignant neoplasm, unspecified; Z83.3 Family history of diabetes mellitus; Z82.49 Family history of ischemic heart disease and other diseases of the circulatory system; Z84.1 Family history of disorders of kidney and ureter

== ENCOUNTER 2017-11-09 18:05 | Inpatient (IN) | payer OTHER ==
[~2017-11-09] VITALS: Ht 167.6 cm; Wt 112.1 kg
[~2017-11-09 18:05] MED LIST changes: +BD INSULIN; -DIPH1TAB PO; +DIPH1TAB87 PO; +INSPMPNVLG; -NVLGI SC
[2017-11-09] MEDS ORDERED: GLUCOSE 40% GEL 15 GM TUBE ONE (18:21)
[2017-11-09] MEDS ORDERED: GLUCAGON FOR INJ 1 MG VIAL ONE (18:26)
--- NOTE | 2017-11-09 18:55 | DIAGNOSTIC IMAGING REPORT ---
CHEST ONE VIEW PORTABLE HISTORY: Sepsis COMPARISON: Chest 09/25/2016. FINDINGS: The cardiac silhouette remains mildly enlarged. Poststernotomy changes. No pleural effusions. No pneumothorax. The lungs are clear. No evidence for pulmonary edema. IMPRESSION: Stable mild cardiomegaly. No acute process within the chest. Electronically signed by: Dale Monet M.D. 11/09/2017 6:54 PM Dictated Date/Time: 11/09/2017 6:52 PM
[2017-11-09 18:58] LABS: HEMATOCRIT 36.5 % (42-52); HEMOGLOBIN 13.6 g/dL (14.0-18.0); MEAN CELL VOLUME 86.9 fL (80-100); MEAN CORPUSCULAR HEMOGLOBIN 32.4 pg (25-34); MEAN CORPUSCULAR HGB CONC 37.3 g/dl (32-36); MEAN PLATELET VOLUME 11.6 fL (7.4-10.4); PLATELET COUNT 41 K/uL (130-400); RED CELL DISTRIBUTION WIDTH CV 12.6 % (11.5-14.5); RED CELL DISTRIBUTION WIDTH SD 39.8 fL (36.4-46.3); WHITE BLOOD COUNT 11.35 K/uL (4.8-10.8)
[2017-11-09] MEDS ORDERED: LSN5 PO (19:01)
[2017-11-09 19:03] LABS: INR 1.1 (0.9-1.1); PTT PATIENT 26.7 SECONDS (21.0-31.0)
[2017-11-09] MEDS ORDERED: ISOS30TA35 PO (19:04)
[2017-11-09 19:26] LABS: ALKALINE PHOSPHATASE 137 U/L (45-117); ALT/SGPT 32 U/L (12-78); AST/SGOT 20 U/L (15-37); BLOOD UREA NITROGEN 81 mg/dl (7-18); CALCIUM 9.2 mg/dl (8.5-10.1); CARBON DIOXIDE 27 mmol/L (21-32); GLUCOSE 161 mg/dl (70-99); POTASSIUM 3.5 mmol/L (3.5-5.1); SODIUM 133 mmol/L (136-145); TOTAL PROTEIN 8.7 gm/dl (6.4-8.2)
[2017-11-09 19:27] LABS: BASO % 0.1 %; BASO ABS # 0.01 K/uL (0-0.2); EOS % 1.4 %; EOS ABS # 0.16 K/uL (0-0.5); IG# 0.03 K/uL (0.00-0.02); LYMPH % 3.5 %; MONO % 4.7 %; MONO ABS # 0.53 K/uL (0.11-0.59); NEUT ABS # 10.22 K/uL (1.4-6.5)
[2017-11-09] MEDS ORDERED: VANCOMYCIN 1GM/270ML NSS IV STA (20:15)
[2017-11-09] MEDS ORDERED: VANCOMYCIN INJ 1,000 MG in SODIUM CHLORIDE 0.9% 250ML 250 ML IV ONE ×2 (20:30→22:00)
--- NOTE | 2017-11-09 20:34 | History and Physical ---
History & Physical Date & Time of Service: Nov 09, 2017 at 20:34 Chief Complaint: Hypoglycemia Primary Care Physician: Dalton Marcelino III, M.D. History of Present Illness Source: patient This is a 47 yo M with complex medical hx of Type 2 DM on insulin , ESRD on PD , CAD s/p CABG X5 in 2013 , HTN , Hyperlipidemia , diabetic retinopathy , hypothyroidism brought to ER by EMS as pt was found at home unresponsive , hypothermic , BSG ~ 40 , pt given Dextrose , woke up in the ambulance in the ER on arrival BSG was 161 , awake and alert , temp improved after Saba hugger During my time of interview pt was sitting up , talking , temp normalized pt mentions -he did not check his BSG and skipped giving insulin ( pt in on Insulin Novolog SSI 1: 10 Unit over BSG of 150 ) this morning before break fast he checked his BSG found it to be 396 ; pt gave himself 40 U insulin ( over correction ) skipped breakfast , had one egg only , sat on the couch to watch TV approx 11: 30 am , felt dizzy and light headed /shaky -realized that his BSG may be low -ate one brownie -does not recall anything after that his next memory was waking up in an ambulance per EMS and pt's brother ( lives in same house ) pt was found sitting on couch unresponsive , 911 was called pt denies of any fever , chills , no cough or flu like symptom no complain of chest pain , SOB, no GI or symptom Vitals in ER: Temp 33.3 /Pulse 54 /RR 18 /BP 140/78 /99% in RA mild leukocytosis 11 K ; chronic thrombocytopenia : 14 K Past Medical/Surgical History Medical Problems: (1) Diabetes mellitus, type II Status: Chronic (2) Diabetic neuropathy Status: Chronic (3) Diabetic retinopathy Status: Chronic (4) Dyslipidemia Status: Chronic (5) ESRD (end stage renal disease) Permanent Comment: peritoneal dialysis Status: Chronic (6) Heart disease Status: Chronic (7) Hypertension Status: Chronic (8) Hypothyroidism Status: Chronic (9) Lymphadenopathy Permanent Comment: thoracic and intra-abdominal by CT January 2014 f/u CT in 3 months recommended Status: Chronic (10) Myocardial infarction Status: Resolved (11) Splenomegaly Status: Chronic (12) Systolic CHF, chronic Status: Chronic (13) Thrombocytopenia Status: Chronic Surgical Problems: (1) H/O heart bypass surgery Status: Resolved (2) Hx of CABG Permanent Comment: CABG x 14 Feb 2014 Status: Resolved Family History Cancer Diabetes mellitus Heart disease Hypertension Kidney disease Kidney stones Social History Smoking Status: Never Smoker Drug Use: none Marital Status: single Housing status: lives with family Occupational Status: employed Immunizations History of Influenza Vaccine: No History of Tetanus Vaccine?: utd Tetanus Immunization Date: February 14, 2010 History of Pneumococcal: No History of Hepatitis B Vaccine: No Multi-Drug Resistant Organisms History of MDRO: No Allergies Coded Allergies: Penicillins (Verified Allergy, Severe, ANAPHYLAXIS, 11/09/17) Home Medications Scheduled Amlodipine (Norvasc), 10 MG PO QAM Aspirin (Aspirin Ec), 81 MG PO BID Atorvastatin (Lipitor), 80 MG PO QPM Carvedilol (Carvedilol), 1 TAB PO BID Furosemide (Lasix), 80 MG PO BID Insulin Aspart (novoLOG INSULIN PUMP ), 1 EA N/A UD Isosorbide Mononitrate Ext Rel (Imdur Ext Rel), 30 MG PO QAM Levothyroxine Sodium (Levothyroxine Sodium), 25 MCG PO QAM Lisinopril (Lisinopril), 5 MG PO QAM Sevelamer Carbonate (Renvela), 4 TAB PO TIDM Scheduled PRN Acetaminophen (Tylenol), 500 MG PO Q4 PRN for Pain Diphenhydramine Hcl (Benadryl Allergy), 1 TAB PO QD PRN for ALLERGIC REACTION Nitroglycerin (Nitrostat), 0.4 MG UT PRN PRN for Chest Pain Review of Systems Constitutional: + problem reported (presented with unresponsiveness and hypothermia ), No fever, No chills, No sweats, No weight loss, No weakness, No fatigue Eyes: No worsening of vision, No eye pain, No redness, No discharge, No diplopia, No problem reported ENT: No hearing loss, No unusual epistaxis, No nasal symptoms, No sore throat, No tinnitus, No dental problems, No trouble swallowing, No problem reported Respiratory: No cough, No sputum, No wheezing, No shortness of breath, No dyspnea on exertion, No dyspnea at rest, No hemoptysis, No problem reported Cardiovascular: No chest pain, No orthopnea, No PND, No edema, No claudication , No palpitations, No problem reported Abdomen: No pain, No nausea, No vomiting, No diarrhea, No constipation, No GI bleeding, No problem reported Musculoskeletal: No joint pain, No muscle pain, No swelling, No calf pain, No problem reported Neurologic: + problem reported (presented with unresponsiveness ) Physical Exam Vital Signs Date Time Temp Pulse Resp B/P (MAP) Pulse Ox O2 Delivery O2 Flow Rate FiO2 11/09/17 20:08 33.6 11/09/17 19:41 59 20 132/87 99 Room Air 11/09/17 18:37 99 Room Air 11/09/17 18:29 52 11/09/17 18:23 33.3 54 18 140/78 99 Room Air General Appearance: no apparent distress Head: normocephalic, atraumatic Eyes: normal inspection, sclerae normal Neck: thyroid normal, no carotid bruits, trachea midline Respiratory/Chest: chest non-tender, lungs clear, normal breath sounds, no respiratory distress Cardiovascular: regular rate, rhythm, normal peripheral pulses Abdomen/GI: normal bowel sounds, non tender, soft, + pertinent finding (PD catheter on rt lower quadrant ) Extremities/Musculoskelatal: no calf tenderness, normal capillary refill, no pedal edema Neurologic/Psych: no motor/sensory deficits, alert, normal mood/affect, oriented x 3 Diagnostics Laboratory Results Results Past 24 Hours Test 11/09/17 18:40 11/09/17 18:49 Range/Units White Blood Count 11.35 4.8-10.8 K/uL Red Blood Count 4.20 4.7-6.1 M/uL Hemoglobin 13.6 14.0-18.0 g/dL Hematocrit 36.5 42-52 % Mean Corpuscular Volume 86.9 80-100 fL Mean Corpuscular Hemoglobin 32.4 25-34 pg Mean Corpuscular Hemoglobin Concent 37.3 32-36 g/dl Platelet Count 41 130-400 K/uL Mean Platelet Volume 11.6 7.4-10.4 fL Neutrophils (%) (Auto) 90.0 % Lymphocytes (%) (Auto) 3.5 % Monocytes (%) (Auto) 4.7 % Eosinophils (%) (Auto) 1.4 % Basophils (%) (Auto) 0.1 % Neutrophils # (Auto) 10.22 1.4-6.5 K/uL Lymphocytes # (Auto) 0.40 1.2-3.4 K/uL Monocytes # (Auto) 0.53 0.11-0.59 K/uL Eosinophils # (Auto) 0.16 0-0.5 K/uL Basophils # (Auto) 0.01 0-0.2 K/uL RDW Standard Deviation 39.8 36.4-46.3 fL RDW Coefficient of Variation 12.6 11.5-14.5 % Immature Granulocyte % (Auto) 0.3 % Immature Granulocyte # (Auto) 0.03 0.00-0.02 K/uL Red Blood Cell Morphology Unremarkable Prothrombin Time 11.4 9.0-12.0 SECONDS Prothromb Time International Ratio 1.1 0.9-1.1 Activated Partial Thromboplast Time 26.7 21.0-31.0 SECONDS Partial Thromboplastin Ratio 1.0 Sodium Level 133 136-145 mmol/L Potassium Level 3.5 3.5-5.1 mmol/L Chloride Level 95 98-107 mmol/L Carbon Dioxide Level 27 21-32 mmol/L Anion Gap 12.0 3-11 mmol/L Blood Urea Nitrogen 81 7-18 mg/dl Creatinine 11.60 0.60-1.40 mg/dl Est Creatinine Clear Calc Drug Dose 9.6 ml/min Estimated GFR () 5.4 Estimated GFR (Non- 4.7 BUN/Creatinine Ratio 7.0 10-20 Random Glucose 161 70-99 mg/dl Calcium Level 9.2 8.5-10.1 mg/dl Total Bilirubin 0.6 0.2-1 mg/dl Aspartate Amino Transf (AST/SGOT) 20 15-37 U/L Alanine Aminotransferase (ALT/SGPT) 32 12-78 U/L Alkaline Phosphatase 137 45-117 U/L Troponin I < 0.015 0-0.045 ng/ml Total Protein 8.7 6.4-8.2 gm/dl Albumin 4.0 3.4-5.0 gm/dl Globulin 4.7 2.5-4.0 gm/dl Albumin/Globulin Ratio 0.9 0.9-2 Bedside Lactic Acid Venous 1.22 0.90-1.70 mmol/L Microbiology Results 11/09/17 Blood Culture, Received Pending 11/09/17 Blood Culture, Received Pending Diagnostic Radiology CHEST ONE VIEW PORTABLE HISTORY: Sepsis COMPARISON: Chest 09/25/2016. FINDINGS: The cardiac silhouette remains mildly enlarged. Poststernotomy changes. No pleural effusions. No pneumothorax. The lungs are clear. No evidence for pulmonary edema. IMPRESSION: Stable mild cardiomegaly. No acute process within the chest. Electronically signed by: Dale Monet M.D. 11/09/2017 6:54 PM Dictated Date/Time: 11/09/2017 6:52 PM Impression Assessment and Plan HYPOGLYCEMIA hx of Type 2 DM on insulin took excessive amount for BSG > 300 presented with obtundation /hypothermia , BSG in 40's corrected with IV dextrose last BSG check 322 insulin sliding scale resumed with liberal correction factor Pharmacy consulted for glycemic management Pt is counselled regarding not self treat with excess insulin , due to renal failure -effect of insulin remains longer if at home BSG remains high, asked him to call his Family physician office community educator consulted /HYPOTHERMIA : possibly due to above . Temp improved with saba Hugger /Correction of Hypoglycemia no evidence of active infection noted Blood culture ordered had PD dialysis catheter -ordered Vancomycin empirically Abx can be d/yvette if culture negative UNRESPONSIVENESS : metabolic encephalopathy due to Hypoglycemia resolved after improvement of BSG ESRD ON PD : usually does PD at night at present no evidence of vol overload Nephrology Dr Kim consulted pt will be resumed with PD after nephro eval tomorrow HTN : stable Cont Coreg/ACEI /Lasix HYPERLIPIDEMIA : on statin HYPOTHYROIDISM : on Levothyroxine THROMBOCYTOPENIA: chronic hold Aspirin follow CBC no bleeding complication HX OF CAD S/P CABG: no complain of angina recent office visit with Dr Brown on 11/03/17 found to be stable coronary artery disease cont Coreg /ACEI /statin Aspirin on hold for thrombocytopenia ISCHEMIC CARDIOMYOPATHY WITH CHRONIC SYSTOLIC HF : cont Lasix , ACEI no evidence of vol overload -No JVD, no lower ext edema , no pulmonary congestion in Cxray Peritoneal Dialysis can be on hold till AM for nephrology recommendation FULL CODE DVT PROPHYLAXIS : low risk , pt is very active at baseline -walks 1 mile every day SCD and teds no pharmacological anticoagulation due to Thrombocytopenia DISPOSITION : expected to be discharged home when medically stable will benefit with home health visiting nurse social service consulted Medicine follow up with Dr Marcelino at [facility] Nephrology follow up with Dr Kim Level of Care Telemetry Resuscitation Status FULL RESUSCITATION VTE Prophylaxis Given or contraindicated: Bronson Hunt, SCD's Additional Copies To Dalton Marcelino III, M.D. Bradbury, James J., D.O.
[2017-11-09] MEDS ORDERED: PHARMACY GLYCEMIC MGMT CONSULT PRN (20:45)
[2017-11-09 21:11] VITALS: BP 167/87; PULSE 65; TEMP 36.3; O2SAT 100; Ht 167.6 cm; Wt 112.1 kg
[2017-11-09] MEDS ORDERED: NITROGLYCERIN 0.4 MG SL PER TAB CHARGE SL PRN (21:15)
[2017-11-09] MEDS ORDERED: DEXTROSE 50% 50 ML SYR IV PRN (21:15)
[2017-11-09] MEDS ORDERED: GLUCAGON FOR INJ 1 MG VIAL SQ PRN (21:15)
[2017-11-09] MEDS ORDERED: VANCOMYCIN CONSULT ACTIVE PRN (21:15)
[2017-11-09] MEDS ORDERED: ACETAMINOPHEN 325 MG TAB PO PRN (21:15)
[2017-11-09] MEDS ORDERED: ONDANSETRON INJ 2 MG/ML 2 ML VIAL IV PRN (21:15)
[2017-11-09] MEDS ORDERED: POLYETHYLENE (MIRALAX) 17 GM PACK PO PRN (21:15)
[2017-11-09] MEDS ORDERED: GLUCOSE 10 TABS/TUBE PO PRN (21:15)
[2017-11-09] MEDS ORDERED: GLUCOSE 40% GEL 15 GM TUBE PO PRN (21:15)
--- NOTE | 2017-11-09 21:42 | Pharmacy Progress Note ---
Pharmacy Abx Dose Short Note Date of Service Nov 09, 2017. Assessment & Plan Assessment 47 year old male initiated on Vancomycin for treatment of skin/soft tissue infection. No further details available at this time. MD in seeing patient now. Blood cultures pending. Pt on peritoneal dialysis as outpatient. Plan Vancomycin * Loading dose: 1000 mg IV X 1 given in ED; give addition 1000 mg IV X 1 on the floor to = ~17.5 mg/kg load * Unsure if peritoneal dialysis is going to happen tonight? No current orders? * Goal trough level for skin/soft tissue: 15 mcg/mL * Pt will be dosed based random vancomycin levels. First level will be ordered once more information available. Pharmacy will continue to follow and will adjust dose/frequency as necessary. Thank you.
[2017-11-09] MEDS ORDERED: NITROGLYCERIN 0.4 MG SL PER TAB CHARGE UT PRN (22:00)
--- NOTE | 2017-11-09 22:12 | Pharmacy Progress Note ---
Pharmacy Glycemic Short Note 2 Date of Service Nov 09, 2017. OUTPATIENT ANTIDIABETIC REGIMEN: * Novolog only - no CF just carb ratio of 10 ASSESSMENT: * 47 yo T2DM male known to pharmacy from previous admissions/glycemic consults. True degree of outpatient control is not known since A1c is unreliable in patients with ESRD d/t interactions between the A1c analyzing technique and high levels of urea in ESRD, reduced RBC life span, iron deficiency anemia, and/ or EPO administration. 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 and blacked out * BSG in ER 161 mg/dL and pt seeing black spots * Pt given dinner and glucose with no coverage and now BSG 322 mg/dL * He was changed to PD during his last admission in 09/2016 * BSG control as outpt really based on what he is eating and what dialysate is being used * For now I see no active orders for PD and am unsure the plan for tonight * Based on pre-admission hypoglycemia I will cover patient with similar Novolog scale to last admission and check him more frequently * If BSGs remain >250 I will give small dose of Lantus X 1 PLAN FOR INPATIENT GLYCEMIC CONTROL: * Basal insulin * Lantus 10 units X 1 if BSG >250 mg/dL at midnight * Bolus insulin * NovoLog per scale ACHS + 00,04 * Goal Range: Low 140 mg/dL - High 180 mg/dL * Correction Factor: 40 mg/dL/unit * Nutritional / Prandial insulin per carb ratio of 1 unit per 10 grams CHO consumed
[2017-11-09 23:03] LABS: INFLUENZA B ANTIGEN Neg for Influ B (NEG)
[2017-11-09] MEDS ORDERED: PNEUMOCOCCAL ADMINISTRATION CHARGE ONE (23:30)
[2017-11-09] MEDS ORDERED: PNEUMOCOCCAL POLYSACCHARIDES 25 MCG/0.5 ML VIAL/SYR IM. ONE (23:30)
[2017-11-09] MEDS ORDERED: INFLUENZA ADMINISTRATION CHARGE ONE (23:30)
[2017-11-09] MEDS ORDERED: INFLUENZA VIRUS QUAD VACCINE 0.5 ML SYR IM. ONE (23:30)
[2017-11-09 23:35] VITALS: BP 160/88; PULSE 66; TEMP 36.4; O2SAT 98
--- NOTE | 2017-11-09 23:58 | EMERGENCY ROOM VISIT NOTE ---
History Report prepared by Nicole: Maura Yao Under the Supervision of: Dr. Deep Reardon M.D. First contact with patient: 18:08 Stated Complaint: HYPOGLYCEMIA History of Present Illness The patient is a 47 year old male who presents to the Emergency Room brought in by EMS with complaints of episodic hypoglycemia EXPORT AGENT. The patient states that his blood sugar spiked to 396 around lunchtime today, so he administered 50 units of Novolin insulin and ate a small piece of a brownie. Per EMS, the patient was unresponsive while sitting on his couch watching television. They explained that the brother could not wake the patient and emergency services were notified. Per EMS, the patient was administered glucagon and the patient woke up. They report the patient's blood sugar was 40 upon arrival. The patient has a history of chronic kidney disease and is on at home dialysis. The patient denies any chest pain, shortness of breath, or abdominal pain. He notes that he has not eat much today due to a lack of food at his home. He denies any fevers or vomiting. Source of History: patient, EMS Onset: EXPORT AGENT Position: other (global ) Symptom Intensity: blood sugar: 40 Quality: other (hypoglycemia) Timing: other (episodic ) Associated Symptoms: No fevers, No chest pain, No SOB, No vomiting, No abdominal pain Review of Systems See HPI for pertinent positives & negatives. A total of 10 systems reviewed and were otherwise negative. Past Medical & Surgical Medical Problems: (1) Diabetes mellitus, type II (2) Diabetic neuropathy (3) Diabetic retinopathy (4) Dyslipidemia (5) ESRD (end stage renal disease) (6) Heart disease (7) Hypertension (8) Hypoglycemia (9) Hypothyroidism (10) Lymphadenopathy (11) Myocardial infarction (12) SOB (shortness of breath) (13) Splenomegaly (14) Systolic CHF, chronic (15) Thrombocytopenia Surgical Problems: (1) H/O heart bypass surgery (2) Hx of CABG Family History Cancer Diabetes mellitus Heart disease Hypertension Kidney disease Kidney stones Social History Smoking Status: Never Smoker Alcohol Use: none Drug Use: none Marital Status: single Housing Status: lives with family Occupation Status: employed Current/Historical Medications Scheduled Amlodipine (Norvasc), 10 MG PO QAM Aspirin (Aspirin Ec), 81 MG PO BID Atorvastatin (Lipitor), 80 MG PO QPM Carvedilol (Carvedilol), 1 TAB PO BID Furosemide (Lasix), 80 MG PO BID Insulin Aspart (novoLOG INSULIN PUMP ), 1 EA N/A UD Isosorbide Mononitrate Ext Rel (Imdur Ext Rel), 30 MG PO QAM Levothyroxine Sodium (Levothyroxine Sodium), 25 MCG PO QAM Lisinopril (Lisinopril), 5 MG PO QAM Sevelamer Carbonate (Renvela), 4 TAB PO TIDM Scheduled PRN Acetaminophen (Tylenol), 500 MG PO Q4 PRN for Pain Diphenhydramine Hcl (Benadryl Allergy), 1 TAB PO QD PRN for ALLERGIC REACTION Nitroglycerin (Nitrostat), 0.4 MG UT PRN PRN for Chest Pain Allergies Coded Allergies: Penicillins (Verified Allergy, Severe, ANAPHYLAXIS, 11/09/17) Physical Exam Vital Signs Date Time Temp Pulse Resp B/P (MAP) Pulse Ox O2 Delivery O2 Flow Rate FiO2 11/09/17 20:08 33.6 11/09/17 19:41 59 20 132/87 99 Room Air 11/09/17 18:37 99 Room Air 11/09/17 18:29 52 11/09/17 18:23 33.3 54 18 140/78 99 Room Air Physical Exam Constitutional: Vital signs reviewed. Hypothermic. Eyes: Pupils are equal round reactive to light. Conjunctiva are noninjected. ENT: Pharynx is clear without erythema or exudate. Mucous membranes are moist. Neck supple without meningeal signs. Respiratory: Clear to auscultation bilaterally. Breath sounds are equal bilaterally. Cardiovascular: Regular rate and rhythm. No rubs or gallops. GI: Soft, nondistended and nontender. Bowel sounds are present. Peritoneal dialysis catheter right lower abdomen. Musculoskeletal: No peripheral edema. No lower extremity tenderness. Integumentary: No cyanosis. Neurological: The patient is awake and alert. No focal deficits. Psychiatric: Normal affect. Medical Decision & Procedures ER Provider Diagnostic Interpretation: Radiology results as stated below per my review and the radiologist's interpretation: CHEST ONE VIEW PORTABLE HISTORY: Sepsis COMPARISON: Chest 09/25/2016. FINDINGS: The cardiac silhouette remains mildly enlarged. Poststernotomy changes. No pleural effusions. No pneumothorax. The lungs are clear. No evidence for pulmonary edema. IMPRESSION: Stable mild cardiomegaly. No acute process within the chest. Electronically signed by: Dale Monet M.D. 11/09/2017 6:54 PM Dictated Date/Time: 11/09/2017 6:52 PM Laboratory Results 11/09/17 18:40 Red Blood Count 4.20, Mean Corpuscular Volume 86.9, Mean Corpuscular Hemoglobin 32.4, Mean Corpuscular Hemoglobin Concent 37.3, Mean Platelet Volume 11.6, Neutrophils (%) (Auto) 90.0, Lymphocytes (%) (Auto) 3.5, Monocytes (%) (Auto) 4.7, Eosinophils (%) (Auto) 1.4, Basophils (%) (Auto) 0.1, Neutrophils # (Auto) 10.22, Lymphocytes # (Auto) 0.40, Monocytes # (Auto) 0.53, Eosinophils # (Auto) 0.16, Basophils # (Auto) 0.01 11/09/17 18:40 Test 11/09/17 18:40 11/09/17 18:49 White Blood Count 11.35 K/uL (4.8-10.8) Red Blood Count 4.20 M/uL (4.7-6.1) Hemoglobin 13.6 g/dL (14.0-18.0) Hematocrit 36.5 % (42-52) Mean Corpuscular Volume 86.9 fL (80-100) Mean Corpuscular Hemoglobin 32.4 pg (25-34) Mean Corpuscular Hemoglobin Concent 37.3 g/dl (32-36) Platelet Count 41 K/uL (130-400) Mean Platelet Volume 11.6 fL (7.4-10.4) Neutrophils (%) (Auto) 90.0 % Lymphocytes (%) (Auto) 3.5 % Monocytes (%) (Auto) 4.7 % Eosinophils (%) (Auto) 1.4 % Basophils (%) (Auto) 0.1 % Neutrophils # (Auto) 10.22 K/uL (1.4-6.5) Lymphocytes # (Auto) 0.40 K/uL (1.2-3.4) Monocytes # (Auto) 0.53 K/uL (0.11-0.59) Eosinophils # (Auto) 0.16 K/uL (0-0.5) Basophils # (Auto) 0.01 K/uL (0-0.2) RDW Standard Deviation 39.8 fL (36.4-46.3) RDW Coefficient of Variation 12.6 % (11.5-14.5) Immature Granulocyte % (Auto) 0.3 % Immature Granulocyte # (Auto) 0.03 K/uL (0.00-0.02) Red Blood Cell Morphology Unremarkable Prothrombin Time 11.4 SECONDS (9.0-12.0) Prothromb Time International Ratio 1.1 (0.9-1.1) Activated Partial Thromboplast Time 26.7 SECONDS (21.0-31.0) Partial Thromboplastin Ratio 1.0 Anion Gap 12.0 mmol/L (3-11) Est Creatinine Clear Calc Drug Dose 9.6 ml/min Estimated GFR () 5.4 Estimated GFR (Non- 4.7 BUN/Creatinine Ratio 7.0 (10-20) Calcium Level 9.2 mg/dl (8.5-10.1) Total Bilirubin 0.6 mg/dl (0.2-1) Aspartate Amino Transf (AST/SGOT) 20 U/L (15-37) Alanine Aminotransferase (ALT/SGPT) 32 U/L (12-78) Alkaline Phosphatase 137 U/L (45-117) Troponin I < 0.015 ng/ml (0-0.045) Total Protein 8.7 gm/dl (6.4-8.2) Albumin 4.0 gm/dl (3.4-5.0) Globulin 4.7 gm/dl (2.5-4.0) Albumin/Globulin Ratio 0.9 (0.9-2) Bedside Lactic Acid Venous 1.22 mmol/L (0.90-1.70) Laboratory results as reviewed by me. Medications Administered Medications (Trade) Dose Ordered Sig/Mitchell Route Start Time Stop Time Status Last Admin Dose Admin Glucose (Glucose 40% Gel) 15 gm STK-MED ONCE .ROUTE 11/09/17 18:21 11/09/17 18:22 DC 11/09/17 18:21 15 GM Vancomycin HCl 1000 mg/Sodium Chloride 270 ml @ 125 mls/hr TODAY@2029 ONCE IV 11/09/17 20:30 11/09/17 22:39 DC 11/09/17 20:44 125 MLS/HR ECG Indication: other (unresponsiveness) Rate (beats per minute): 54 Rhythm: sinus bradycardia Findings: no acute ischemic change, no ectopy, other (prolonged QT interval) Change: Patient's electrocardiogram per my interpretation. ED Course 1809: The patient was evaluated in room C5. A complete history and physical exam was performed. 1820: Ordered Glucose 15 gm PO 1906: I reassessed the patient at this time. He is feeling better and resting comfortably. 1923: I reassessed the patient at this time. His blood sugar is 250. He ate a sandwich and drank orange juice. 2012: I reassessed the patient at this time. He is feeling better and resting comfortably. I discussed the results and treatment plan with the patient. I answered all pertaining questions that he had. He expressed understanding and verbalized agreement. The patient will be further evaluated. 2014: I spoke with Dr. Grissom, [facility] hospitalist. We discussed the patients case. The patient will be evaluated by the [facility] for further management. 2030: Ordered Vancomycin HCl 1,000 mg/Sodium Chloride 270 ml @ 125 mls/hr IV Medical Decision This is a 47-year-old male who presents with hypothermia and hypoglycemia. Differential diagnosis includes iatrogenic hypoglycemia, sepsis, pneumonia, peritonitis, metabolic derangement. I did perform a limited focused review of portions of the patient's old chart on the electronic medical record. The patient has had no recent pertinent visits to this hospital. I did evaluate the patient as noted above. The patient was brought in for altered mental status due to hypoglycemia. Was minimally responsive when sitting in his chair and so his brother called EMS. Sugar was 40 and he was given glucagon IM. He is awake and alert on presentation here. He has no complaints and denies having any chest pain or abdominal pain or headache or fever. He is, however, hypothermic here. He does state that he took 50 units of Lantus insulin without eating anything today. This would likely explain his hypoglycemia. IV access was established. The patient was placed on a continuous manager cardiac. I did order and personally review the patient's 12- lead EKG and chest x-ray as described above. I did order and review the patient 's blood work as noted in the electronic medical record. His white blood cell count is slightly elevated. Lactic acid is not elevated. Creatinine is 11. His potassium is not elevated. I did reassess the patient multiple times. Despite being on a warming blanket he is still hypothermic. I did recommend hospitalization for further evaluation of his symptoms. He was treated empirically with vancomycin IV. I did discuss case with the hospitalist and rehabilitation case coordinator. Medication Reconcilliation Current Medication List: was personally reviewed by me Blood Pressure Screening Patient's blood pressure: Elevated blood pressure Blood pressure disposition: Referred to PCP Consults Time Called: 2014 Consulting Physician: Dr. Grissom [facility] hospitalist I spoke with Dr. Grissom [facility]. We discussed the patients case. The patient will be evaluated by the [facility] for further management. Impression Primary Impression: Hypoglycemia Additional Impressions: Hypothermia End stage renal disease Scribe Attestation The scribe's documentation has been prepared under my direct and personally reviewed by me in its entirety. I confirm that the note above accurately reflects all work, treatment, procedures, and medical decision making performed by me. Departure Information Dispostion Being Evaluated By Hospitalist Referrals Dalton Marcelino III, M.D. (PCP) Problem Qualifiers Additional Impressions: Hypothermia Encounter type: initial encounter Qualified Codes: T68.XXXA - Hypothermia, initial encounter
[2017-11-09 23:59] VITALS: O2SAT 98
[2017-11-10] MEDS: INSULIN ASPART 100 UNITS/ML 3 ML PEN SC SCH ×4 (00:04→17:26)
[2017-11-10] MEDS ORDERED: LANTUS PER UNIT CHARGE SQ STA (00:53)
[2017-11-10 03:42] VITALS: BP 151/85; PULSE 69; TEMP 36.8; O2SAT 98
[2017-11-10 04:00] VITALS: O2SAT 98
[2017-11-10] MEDS ORDERED: LEVOTHYROXINE 25 MCG TAB PO SCH (06:00)
[2017-11-10 06:45] LABS: HEMATOCRIT 31.4 % (42-52); HEMOGLOBIN 11.8 g/dL (14.0-18.0); MEAN CELL VOLUME 86.3 fL (80-100); MEAN CORPUSCULAR HEMOGLOBIN 32.4 pg (25-34); MEAN CORPUSCULAR HGB CONC 37.6 g/dl (32-36); RED CELL DISTRIBUTION WIDTH CV 12.5 % (11.5-14.5); RED CELL DISTRIBUTION WIDTH SD 38.8 fL (36.4-46.3); WHITE BLOOD COUNT 7.76 K/uL (4.8-10.8)
[2017-11-10 06:52] LABS: MEAN PLATELET VOLUME 11.5 fL (7.4-10.4); PLATELET COUNT 48 K/uL (130-400)
[2017-11-10 07:34] LABS: CALCIUM 8.8 mg/dl (8.5-10.1); CREATININE 11.6 mg/dl (0.60-1.40); POTASSIUM 3.5 mmol/L (3.5-5.1)
[2017-11-10 07:35] VITALS: BP 168/79; PULSE 71; TEMP 36.5; O2SAT 98
[2017-11-10] MEDS: FUROSEMIDE 80 MG TAB PO SCH ×2 (07:44→16:47)
[2017-11-10 07:52] LABS: HEMOGLOBIN A1C 6.5 % (4.5-5.6)
[2017-11-10] MEDS ORDERED: CARVEDILOL 12.5 MG TAB PO SCH (09:00)
[2017-11-10] MEDS ORDERED: ASPIRIN 81 MG ECTAB PO SCH (09:00)
[2017-11-10] MEDS ORDERED: ISOSORBIDE MONONITRATE 30 MG TABCR PO SCH (09:00)
[2017-11-10] MEDS ORDERED: LISINOPRIL 5 MG TAB PO SCH (09:00)
[2017-11-10] MEDS ORDERED: AMLODIPINE BESYLATE 5 MG TAB PO SCH (09:00)
[2017-11-10 11:21] VITALS: BP 124/71; PULSE 69; TEMP 36.8; O2SAT 98
--- NOTE | 2017-11-10 12:49 | Nephrology Consultation ---
Nephrology Consultation Date of Consultation: Nov 10, 2017. Attending Physician: Dr Mclean Requesting Physician: Dr Boland Reason for Consultation: ESRD History of Present Illness 47 year old male w/ ESRD on PD admitted last evening with hypoglycemia after he was found down at home w/ BS 40 and hypothermic. He responded en route to [facility] to dextrose. Per H&P he took too much insulin. He does PD under the care of Dr. Kim and has had issues w/ volume overload in the past. He has been on PD for about a year and denies hx of peritonitis or any recent concerns about PD exchanges. No abdominal pain, n/v/d/c. He continues to void daily. He usually does 5 x 2L cycles over 8 hours usually all 2.5% dextrose; no last bag fill; no midday exchange though about 2 hrs prior to going on cycler he manually instills 2L of 4.25% dextrose. He also has a nonfunctional AVF. He did have 2 doses of vancomycin in the ER last evening; no other antibiotics; then clinical concern for sepsis currently is low. Past Medical/Surgical History Medical Problems: (1) Bilateral leg pain Status: Acute (2) CAD (coronary artery disease) Status: Acute (3) Diabetes Status: Acute (4) Dyspnea on exertion Status: Acute (5) End stage renal disease Status: Acute (6) Hypothermia Status: Acute (7) Yeast UTI Status: Acute PAST MEDICAL HISTORY: DM2 on insulin with retinopathy, neuropathy, nephropathy ; CAD s/p 5vCABG; HTN, hyperlipidemia, end-stage renal disease on peritoneal dialysis, although also has a fistula placed. Hypothyroidism, lymphoma with splenomegaly and chronic thrombocytopenia thrombocytopenia with persistent stable lymphadenopathy followed by Dr. Lyons. PAST SURGICAL HISTORY: Bypass surgery x5, multiple eye surgeries, AV fistula and PD catheter placement. Family History Cancer Diabetes mellitus Heart disease Hypertension Kidney disease Kidney stones Social History Smoking Status: Never Smoker Alcohol Use: none Drug Use: none Marital Status: single Housing Status: lives with family Occupation Status: employed Allergies Coded Allergies: Penicillins (Verified Allergy, Severe, ANAPHYLAXIS, 11/09/17) Medications Current Inpatient Medications Medications (Trade) Dose Ordered Sig/Mitchell Route Start Time Stop Time Status Last Admin Dose Admin Miscellaneous Information (Consult Glycemic Management Pharmacy) 1 ea UD PRN N/A 11/09/17 20:45 12/09/17 20:44 Miscellaneous Information (Consult) 1 ea UD PRN N/A 11/09/17 21:15 12/09/17 21:14 Acetaminophen (Tylenol Tab) 650 mg Q4H PRN PO 11/09/17 21:15 12/09/17 21:14 Ondansetron HCl (Zofran Inj) 4 mg Q6H PRN IV 11/09/17 21:15 12/09/17 21:14 Nitroglycerin (Nitrostat Tab) 0.4 mg UD PRN SL 11/09/17 21:15 12/09/17 21:14 Polyethylene (Miralax Powder Packet) 17 gm DAILY PRN PO 11/09/17 21:15 12/09/17 21:14 Insulin Aspart (novoLOG ASPART) SLIDING SCALE If C... ACHS SC 11/10/17 22:00 12/10/17 21:59 Glucose (Glucose 40% Gel) 15-30 GRAMS 15 GRAMS... UD PRN PO 11/09/17 21:15 12/09/17 21:14 Glucose (Glucose Chew Tab) 4-8 Tablets 4 Tabl... UD PRN PO 11/09/17 21:15 12/09/17 21:14 Dextrose (Dextrose 50% 50ML Syringe) 25-50ML OF 50% DW IV FOR... UD PRN IV 11/09/17 21:15 12/09/17 21:14 Glucagon (Glucagon Inj) 1 mg UD PRN SQ 11/09/17 21:15 12/09/17 21:14 Amlodipine Besylate (Norvasc Tab) 10 mg QAM PO 11/10/17 09:00 12/10/17 08:59 11/10/17 07:44 10 MG Atorvastatin Calcium (Lipitor Tab) 80 mg QPM PO 11/10/17 21:00 12/10/17 20:59 Carvedilol (Coreg Tab) 12.5 mg BID PO 11/10/17 09:00 12/10/17 08:59 11/10/17 07:43 12.5 MG Furosemide (Lasix Tab) 80 mg BID17 PO 11/10/17 09:00 12/10/17 08:59 11/10/17 07:44 80 MG Isosorbide Mononitrate (Imdur Ext Rel Tab) 30 mg QAM PO 11/10/17 09:00 12/10/17 08:59 11/10/17 07:44 30 MG Levothyroxine Sodium (Synthroid Tab) 25 mcg DAILYBB PO 11/10/17 06:00 12/10/17 05:59 11/10/17 05:36 25 MCG Lisinopril (Zestril Tab) 5 mg QAM PO 11/10/17 09:00 12/10/17 08:59 11/10/17 07:43 5 MG Insulin Aspart (novoLOG ASPART) SLIDING SCALE If C... 0000,0400 SC 11/10/17 00:00 12/10/17 00:00 11/10/17 03:58 1 UNITS Home Meds and Scripts Medications Dose Route/Sig Max Daily Dose Days Date Category Dose Instructions Imdur Ext Rel (Isosorbide Mononitrate) 30 Mg Tabcr 30 Mg PO QAM 11/09/17 Reported NEEDS A NEW SCRIPT FOR THIS MED. Lisinopril 5 Mg Tab 5 Mg PO QAM 11/09/17 Reported novoLOG INSULIN PUMP (Insulin Aspart) 1 Ea Inj 1 Ea N/A UD 06/12/17 Reported USE 1 UNIT PER 10 GRAMS OF CARBS WITH EACH MEAL. Lasix (Furosemide) 80 Mg Tab 80 Mg PO BID 02/03/17 Reported Carvedilol 12.5 Mg Tab 1 Tab PO BID 12/23/16 Reported TAKES 1 1/2 TABS. Norvasc (Amlodipine Besylate) 10 Mg Tab 10 Mg PO QAM 12/23/16 Reported Nitrostat (Nitroglycerin) 0.4 Mg Tab 0.4 Mg UT PRN PRN 08/23/16 Reported Renvela (Sevelamer Carbonate) 800 Mg Tab 4 Tab PO TIDM 08/23/16 Reported 2 TABS WITH SNACKS Tylenol (Acetaminophen) 500 Mg Tab 500 Mg PO Q4 PRN 04/23/16 Reported Benadryl Allergy (Diphenhydramine Hcl) 25 Mg Tab 1 Tab PO QD PRN 04/23/16 Reported Levothyroxine Sodium 25 Mcg Tab 25 Mcg PO QAM 11/02/15 Reported Aspirin Ec (Aspirin) 81 Mg Tab 81 Mg PO BID 01/12/14 Reported Lipitor (Atorvastatin Calcium) 80 Mg Tab 80 Mg PO QPM 01/12/14 Reported Review of Systems Constitutional: No fever, No chills, No weakness, No fatigue Eyes: No worsening of vision ENT: No hearing loss Respiratory: No cough, No shortness of breath Cardiac: No chest pain, No edema, No palpitations Abdomen: No pain, No nausea, No vomiting, No diarrhea, No constipation Musculoskeletal: No joint pain, No muscle pain Male : + problem reported (no change in chronic voiding habits) Neuro: No memory loss, No weakness, No numbness/tingling, No balance problems Psych: No depression symptoms, No anxiety Heme: No abnormal bleeding/bruising Endo: No fatigue Skin: No rash, No new/changing skin lesions Physical Exam Date Time Temp Pulse Resp B/P (MAP) Pulse Ox O2 Delivery O2 Flow Rate FiO2 11/10/17 07:35 36.5 71 18 168/79 (108) 98 Room Air 11/10/17 04:00 98 Room Air 11/10/17 03:42 36.8 69 18 151/85 (107) 98 Room Air 11/09/17 23:59 98 Room Air 11/09/17 23:35 36.4 66 18 160/88 (112) 98 Room Air 11/09/17 21:11 36.3 65 20 167/87 100 Room Air 11/09/17 20:53 76 18 140/80 98 Room Air 11/09/17 20:08 33.6 11/09/17 19:41 59 20 132/87 99 Room Air 11/09/17 18:37 99 Room Air 11/09/17 18:29 52 11/09/17 18:23 33.3 54 18 140/78 99 Room Air General Appearance: WD/WN, no apparent distress, + pertinent finding (on RA, ambulatory w/o asst) Eyes: EOMI ENT: hearing grossly normal Neck: supple Respiratory/Chest: lungs clear Cardiovascular: regular rate, rhythm, no edema Abdomen: normal bowel sounds, non tender, soft, no organomegaly, + pertinent finding (PD catheter RLQ) Extremities: non-tender, no pedal edema, + pertinent finding (AVF R r-c w/ bruit but no thrill) Neurologic/Psych: no motor/sensory deficits, alert, normal mood/affect, oriented x 3 Skin: no jaundice, warm/dry, no rash Diagnostics Last 24 Hours Test 11/09/17 18:12 11/09/17 18:40 11/09/17 18:49 11/09/17 19:13 Bedside Glucose 155 mg/dl 253 mg/dl White Blood Count 11.35 K/uL Red Blood Count 4.20 M/uL Hemoglobin 13.6 g/dL Hematocrit 36.5 % Mean Corpuscular Volume 86.9 fL Mean Corpuscular Hemoglobin 32.4 pg Mean Corpuscular Hemoglobin Concent 37.3 g/dl Platelet Count 41 K/uL Mean Platelet Volume 11.6 fL Neutrophils (%) (Auto) 90.0 % Lymphocytes (%) (Auto) 3.5 % Monocytes (%) (Auto) 4.7 % Eosinophils (%) (Auto) 1.4 % Basophils (%) (Auto) 0.1 % Neutrophils # (Auto) 10.22 K/uL Lymphocytes # (Auto) 0.40 K/uL Monocytes # (Auto) 0.53 K/uL Eosinophils # (Auto) 0.16 K/uL Basophils # (Auto) 0.01 K/uL RDW Standard Deviation 39.8 fL RDW Coefficient of Variation 12.6 % Immature Granulocyte % (Auto) 0.3 % Immature Granulocyte # (Auto) 0.03 K/uL Red Blood Cell Morphology Unremarkable Prothrombin Time 11.4 SECONDS Prothromb Time International Ratio 1.1 Activated Partial Thromboplast Time 26.7 SECONDS Partial Thromboplastin Ratio 1.0 Sodium Level 133 mmol/L Potassium Level 3.5 mmol/L Chloride Level 95 mmol/L Carbon Dioxide Level 27 mmol/L Anion Gap 12.0 mmol/L Blood Urea Nitrogen 81 mg/dl Creatinine 11.60 mg/dl Est Creatinine Clear Calc Drug Dose 9.6 ml/min Estimated GFR () 5.4 Estimated GFR (Non- 4.7 BUN/Creatinine Ratio 7.0 Random Glucose 161 mg/dl Calcium Level 9.2 mg/dl Total Bilirubin 0.6 mg/dl Aspartate Amino Transf (AST/SGOT) 20 U/L Alanine Aminotransferase (ALT/SGPT) 32 U/L Alkaline Phosphatase 137 U/L Troponin I < 0.015 ng/ml Total Protein 8.7 gm/dl Albumin 4.0 gm/dl Globulin 4.7 gm/dl Albumin/Globulin Ratio 0.9 Bedside Lactic Acid Venous 1.22 mmol/L Test 11/09/17 21:23 11/09/17 22:30 11/10/17 00:00 11/10/17 02:50 Bedside Glucose 322 mg/dl 325 mg/dl Influenza Type A Antigen Neg for Influ A Influenza Type B Antigen Neg for Influ B Urine Color YELLOW Urine Appearance CLEAR Urine pH 5.0 Urine Specific [place] 1.020 Urine Protein 3+ Urine Glucose (UA) 2+ Urine Ketones NEG Urine Occult Blood 2+ Urine Nitrite NEG Urine Bilirubin NEG Urine Urobilinogen NEG Urine Leukocyte Esterase NEG Urine WBC (Auto) 5-10 /hpf Urine RBC (Auto) 0-4 /hpf Urine Hyaline Casts (Auto) 5-10 /lpf Urine Epithelial Cells (Auto) 20-30 /lpf Urine Bacteria (Auto) NEG Urine Crystals AMORPHOUS SEDIMENT Urine Yeast (Auto) Test 11/10/17 03:48 11/10/17 06:16 11/10/17 06:50 Bedside Glucose 217 mg/dl 151 mg/dl White Blood Count 7.76 K/uL Red Blood Count 3.64 M/uL Hemoglobin 11.8 g/dL Hematocrit 31.4 % Mean Corpuscular Volume 86.3 fL Mean Corpuscular Hemoglobin 32.4 pg Mean Corpuscular Hemoglobin Concent 37.6 g/dl RDW Standard Deviation 38.8 fL RDW Coefficient of Variation 12.5 % Platelet Count 48 K/uL Mean Platelet Volume 11.5 fL Sodium Level 133 mmol/L Potassium Level 3.5 mmol/L Chloride Level 97 mmol/L Carbon Dioxide Level 24 mmol/L Anion Gap 12.0 mmol/L Blood Urea Nitrogen 86 mg/dl Creatinine 11.60 mg/dl Est Creatinine Clear Calc Drug Dose 9.5 ml/min Estimated GFR () 5.4 Estimated GFR (Non- 4.7 BUN/Creatinine Ratio 7.6 Random Glucose 133 mg/dl Estimated Average Glucose 140 mg/dl Hemoglobin A1c 6.5 % Calcium Level 8.8 mg/dl Magnesium Level 3.5 mg/dl Diagnostic Radiology: cxr> stable mild cardiomegaly w/ no acute CP process TTE 09/2016 * There is mild concentric left ventricular hypertrophy. * There is mild global hypokinesis of the left ventricle. * The LV Ejection Fraction = 45-50%. * The left atrium is mildly dilated. * There is trace mitral regurgitation. * Diastolic dysfunction, Grade II, consistent with elevated left atrial pressure. * There is a moderate degree of ascites present versus intra-abdominla fluid associated with peritoneal dialysis. Assessment & Plan 47 y/o M w/ ESRD on PD admitted on 11/09 w/ symptomatic hypoglycemia. End-stage renal disease on peritoneal dialysis -with acceptable volume status and chemistries -will order 6 cycles over 12 hrs all 2L fills and one exchange red, all others green; no LBF Anemia of renal failure and chronic thrombocytopenia in setting of lymphoma. No Procrit d/t heme dxs. Plts generally run at about 40 K as they are here. Hypoglycemia -- resolved/improving; per primary service; follow up pending cxs; he has no abdominal pain or GI sx or evidence of sepsis >> no PD fluid studies indicated at this time Appreciate consult; will follow with you. Care coordinated w/ Dr. Mclean at about 10am
[2017-11-10] MEDS ORDERED: INSULIN ASPART 100 UNITS/ML 3 ML PEN SC ONE (14:00)
--- NOTE | 2017-11-10 14:06 | Pharmacy Progress Note ---
Pharmacy Glycemic Short Note 2 Date of Service Nov 10, 2017. OUTPATIENT ANTIDIABETIC REGIMEN: * Novolog only - no CF just carb ratio of 10 ASSESSMENT: * 47 yo T2DM male known to pharmacy from previous admissions/glycemic consults. True degree of outpatient control is not known since A1c is unreliable in patients with ESRD d/t interactions between the A1c analyzing technique and high levels of urea in ESRD, reduced RBC life span, iron deficiency anemia, and/ or EPO administration. Per pt he had an extremely low BSG today [employer] and blacked out. BSG in ER 161 mg/dL and pt seeing black spots * Glycemic control improved this am. Lunch BSG elevated, however RN reported carbs from breakfast were not covered. I instructed her to re-check BSG in 2 hours. Gave order for additional 2 units of Novolog for BSG 239. * Continue conservative goal range d/t recent hypoglycemia and peritoneal dialysis. May tighten on 11/10 if BSGs not trending down. * Tighten correction factor. Continue home carb ratio. PLAN FOR INPATIENT GLYCEMIC CONTROL: * Basal insulin * Lantus 10 units SQ (given at 0112) + 5 units SQ at lunch * Assess further Lantus orders on 11/10 * Bolus insulin- tighten * NovoLog per scale ACHS + 00,04 * Goal Range: Low 140 mg/dL - High 180 mg/dL * Correction Factor: 30 mg/dL/unit * Nutritional / Prandial insulin per carb ratio of 1 unit per 10 grams CHO consumed Thank you.
--- NOTE | 2017-11-10 14:56 | Pharmacy Progress Note ---
Pharmacy Antibiotic Prog Note Date of Service Nov 10, 2017. Subjective The patient is currently receiving Vancomycin PRN via PD. Objective Height (Feet): 5 Height (Inches): 6.00 Weight (Kilograms): 112.100 Lab Results (24hrs): Test 11/09/17 18:40 11/09/17 18:49 11/09/17 22:30 11/10/17 02:50 White Blood Count 11.35 K/uL (4.8-10.8) Red Blood Count 4.20 M/uL (4.7-6.1) Hemoglobin 13.6 g/dL (14.0-18.0) Hematocrit 36.5 % (42-52) Mean Corpuscular Volume 86.9 fL (80-100) Mean Corpuscular Hemoglobin 32.4 pg (25-34) Mean Corpuscular Hemoglobin Concent 37.3 g/dl (32-36) Platelet Count 41 K/uL (130-400) Mean Platelet Volume 11.6 fL (7.4-10.4) Neutrophils (%) (Auto) 90.0 % Lymphocytes (%) (Auto) 3.5 % Monocytes (%) (Auto) 4.7 % Eosinophils (%) (Auto) 1.4 % Basophils (%) (Auto) 0.1 % Neutrophils # (Auto) 10.22 K/uL (1.4-6.5) Lymphocytes # (Auto) 0.40 K/uL (1.2-3.4) Monocytes # (Auto) 0.53 K/uL (0.11-0.59) Eosinophils # (Auto) 0.16 K/uL (0-0.5) Basophils # (Auto) 0.01 K/uL (0-0.2) RDW Standard Deviation 39.8 fL (36.4-46.3) RDW Coefficient of Variation 12.6 % (11.5-14.5) Immature Granulocyte % (Auto) 0.3 % Immature Granulocyte # (Auto) 0.03 K/uL (0.00-0.02) Red Blood Cell Morphology Unremarkable Prothrombin Time 11.4 SECONDS (9.0-12.0) Prothromb Time International Ratio 1.1 (0.9-1.1) Activated Partial Thromboplast Time 26.7 SECONDS (21.0-31.0) Partial Thromboplastin Ratio 1.0 Sodium Level 133 mmol/L (136-145) Potassium Level 3.5 mmol/L (3.5-5.1) Chloride Level 95 mmol/L (98-107) Carbon Dioxide Level 27 mmol/L (21-32) Anion Gap 12.0 mmol/L (3-11) Blood Urea Nitrogen 81 mg/dl (7-18) Creatinine 11.60 mg/dl (0.60-1.40) Est Creatinine Clear Calc Drug Dose 9.6 ml/min Estimated GFR () 5.4 Estimated GFR (Non- 4.7 BUN/Creatinine Ratio 7.0 (10-20) Random Glucose 161 mg/dl (70-99) Calcium Level 9.2 mg/dl (8.5-10.1) Total Bilirubin 0.6 mg/dl (0.2-1) Aspartate Amino Transf (AST/SGOT) 20 U/L (15-37) Alanine Aminotransferase (ALT/SGPT) 32 U/L (12-78) Alkaline Phosphatase 137 U/L (45-117) Troponin I < 0.015 ng/ml (0-0.045) Total Protein 8.7 gm/dl (6.4-8.2) Albumin 4.0 gm/dl (3.4-5.0) Globulin 4.7 gm/dl (2.5-4.0) Albumin/Globulin Ratio 0.9 (0.9-2) Bedside Lactic Acid Venous 1.22 mmol/L (0.90-1.70) Influenza Type A Antigen Neg for Influ A (NEG) Influenza Type B Antigen Neg for Influ B (NEG) Urine Color YELLOW Urine Appearance CLEAR (CLEAR) Urine pH 5.0 (4.5-7.5) Urine Specific [place] 1.020 (1.000-1.030) Urine Protein 3+ (NEG) Urine Glucose (UA) 2+ (NEG) Urine Ketones NEG (NEG) Urine Occult Blood 2+ (NEG) Urine Nitrite NEG (NEG) Urine Bilirubin NEG (NEG) Urine Urobilinogen NEG (NEG) Urine Leukocyte Esterase NEG (NEG) Urine WBC (Auto) 5-10 /hpf (0-5) Urine RBC (Auto) 0-4 /hpf (0-4) Urine Hyaline Casts (Auto) 5-10 /lpf (0-5) Urine Epithelial Cells (Auto) 20-30 /lpf (0-5) Urine Bacteria (Auto) NEG (NEG) Urine Crystals AMORPHOUS SEDIMENT (NONE Urine Yeast (Auto) (NONE PRSENT) Test 11/10/17 06:16 11/10/17 11:10 11/10/17 13:34 White Blood Count 7.76 K/uL (4.8-10.8) Red Blood Count 3.64 M/uL (4.7-6.1) Hemoglobin 11.8 g/dL (14.0-18.0) Hematocrit 31.4 % (42-52) Mean Corpuscular Volume 86.3 fL (80-100) Mean Corpuscular Hemoglobin 32.4 pg (25-34) Mean Corpuscular Hemoglobin Concent 37.6 g/dl (32-36) RDW Standard Deviation 38.8 fL (36.4-46.3) RDW Coefficient of Variation 12.5 % (11.5-14.5) Platelet Count 48 K/uL (130-400) Mean Platelet Volume 11.5 fL (7.4-10.4) Sodium Level 133 mmol/L (136-145) Potassium Level 3.5 mmol/L (3.5-5.1) Chloride Level 97 mmol/L (98-107) Carbon Dioxide Level 24 mmol/L (21-32) Anion Gap 12.0 mmol/L (3-11) Blood Urea Nitrogen 86 mg/dl (7-18) Creatinine 11.60 mg/dl (0.60-1.40) Est Creatinine Clear Calc Drug Dose 9.5 ml/min Estimated GFR () 5.4 Estimated GFR (Non- 4.7 BUN/Creatinine Ratio 7.6 (10-20) Random Glucose 133 mg/dl (70-99) Estimated Average Glucose 140 mg/dl Hemoglobin A1c 6.5 % (4.5-5.6) Calcium Level 8.8 mg/dl (8.5-10.1) Magnesium Level 3.5 mg/dl (1.8-2.4) Bedside Glucose 238 mg/dl (70-99) 239 mg/dl (70-99) Micro Results: Item Value Date Time Urine Culture Received 11/10/17 0250 Urine , Clean Catch Pending MRSA DNA Surveillance Screen - Final Complete 11/09/17 2230 Nasal Specimen Negative for MRSA by DNA Probe Blood Culture Received 11/09/17 1909 Blood Pending Blood Culture Received 11/09/17 1840 Blood Pending Assessment & Plan Pt receiving Vancomycin as needed for skin and soft tissue infxn. Pt is set to receive peritoneal dialysis daily from 0481-3126. Pt did receive a total dose of Vancomycin 2000mg IV X1 11/10/17 to achieve a peak of ~30mcg/mL. UO has only been 700cc at this point so Vancomycin excretion is minimal. PD schedule makes it difficult to dose his Vancomycin. Will order a random lvl before and after PD to get a better idea of how much Vancomycin is being dialyzed. Will base subsequent doses off of this data. Will contact medical team to discuss antibxs. May need gram(-) coverage for potential SBP. Pharmacy will continue to follow and will adjust dose/frequency as necessary. Thank you
[2017-11-10 15:39] VITALS: BP 125/63; PULSE 62; TEMP 36.5; O2SAT 98
[2017-11-10 16:00] VITALS: O2SAT 98
[2017-11-10] MEDS ORDERED: INSDGI SC (17:28)
--- NOTE | 2017-11-10 17:29 | Discharge Instructions ---
Discharge Instructions Date of Service Nov 10, 2017. Admission Reason for Admission: Hypoglycemia Discharge Discharge Diagnosis / Problem: Hypoglycemia Discharge Goals Goal(s): Therapeutic intervention Activity Recommendations Activity Limitations: resume your previous activity . Instructions / Follow-Up Instructions / Follow-Up Please expect a call from your Primary care physicians office to schedule a follow up appointment. It is important that you are seen by a physician in the next [address] Marcelino is unavailable so you will need to be seen by one of his colleagues. Please follow up with Nephrology as scheduled. Start with 5 units of lantus tonight, and tomorrow (11/11/17) please start with 10 units of lantus at night Current Hospital Diet Patient's current hospital diet: Diabetes Type 2 Diet, Renal Diet, AHA Diet ( Heart Healthy) Discharge Diet Recommended Diet: AHA Diet (Heart Healthy), Diabetes Type 2 Diet, Renal Diet Pending Studies Studies pending at discharge: no Laboratory Results Hemoglobin A1c Test 11/10/17 06:16 Range/Units Estimated Average Glucose 140 mg/dl Hemoglobin A1c 6.5 H 4.5-5.6 % Medical Emergencies . Who to Call and When: Medical Emergencies: If at any time you feel your situation is an emergency, please call 911 immediately. . Non-Emergent Contact Non-Emergency issues call your: Primary Care Provider, Global Sales Manager . . "Provider Documentation" section prepared by Lupe Mclean. . VTE Core Measure Inpt VTE Proph given/why not?: Bronson Hunt, SCD's
--- NOTE | 2017-11-10 17:49 | Discharge Summary ---
Discharge Summary Date of Service Nov 10, 2017. Discharge Summary Admission Date: Nov 09, 2017 at 20:36 Discharge Date: Nov 10, 2017 Admission Information HPI (per Admitting provider): This is a 47 yo M with complex medical hx of Type 2 DM on insulin , ESRD on PD , CAD s/p CABG X5 in 2013 , HTN , Hyperlipidemia , diabetic retinopathy , hypothyroidism brought to ER by EMS as pt was found at home unresponsive , hypothermic , BSG ~ 40 , pt given Dextrose , woke up in the ambulance in the ER on arrival BSG was 161 , awake and alert , temp improved after Louie huggcheikh During my time of interview pt was sitting up , talking , temp normalized pt mentions -he did not check his BSG and skipped giving insulin ( pt in on Insulin Novolog SSI 1: 10 Unit over BSG of 150 ) this morning before break fast he checked his BSG found it to be 396 ; pt gave himself 40 U insulin ( over correction ) skipped breakfast , had one egg only , sat on the couch to watch TV approx 11: 30 am , felt dizzy and light headed /shaky -realized that his BSG may be low -ate one brownie -does not recall anything after that his next memory was waking up in an ambulance per EMS and pt's brother ( lives in same house ) pt was found sitting on couch unresponsive , 911 was called pt denies of any fever , chills , no cough or flu like symptom no complain of chest pain , SOB, no GI or symptom Vitals in ER: Temp 33.3 /Pulse 54 /RR 18 /BP 140/78 /99% in RA mild leukocytosis 11 K ; chronic thrombocytopenia : 14 K Physical Exam (per Admitting): General Appearance: no apparent distress Head: normocephalic, atraumatic Eyes: normal inspection, sclerae normal Neck: thyroid normal, no carotid bruits, trachea midline Respiratory/Chest: chest non-tender, lungs clear, normal breath sounds, no respiratory distress Cardiovascular: regular rate, rhythm, normal peripheral pulses Abdomen/GI: normal bowel sounds, non tender, soft, + pertinent finding (PD catheter on rt lower quadrant ) Extremities/Musculoskelatal: no calf tenderness, normal capillary refill, no pedal edema Neurologic/Psych: no motor/sensory deficits, alert, normal mood/affect, oriented x 3 Hospital Course Total time spent on discharge = This includes examination of the patient, discharge planning, medication reconciliation, and communication with other providers.
[2017-11-10] MEDS ORDERED: INSULIN GLARGINE SOLOSTAR 100 UNITS/ML 3 ML PEN SC ONE (18:15)
[2017-11-10] MEDS ORDERED: ATORVASTATIN 40 MG TAB PO SCH (21:00)
[2017-11-10] MEDS ORDERED: VANCOMYCIN INJ 500 MG in SODIUM CHLORIDE 0.9% 250ML 250 ML IV ONE (21:00)
[2017-11-10] MEDS ORDERED: INSULIN ASPART 100 UNITS/ML 3 ML PEN SC SCH (22:00)
[2017-11-11] MEDS ORDERED: INSULIN ASPART 100 UNITS/ML 3 ML PEN SC SCH
== END 2017-11-10 19:35 | disposition home or self-care (01) | DRG 637 ==
LOC: EDBD 18:05 → C.EDC 18:06 → C.2T 20:36 → ENRESERV 20:44 → EDBEDREQ 20:50
PROVIDERS: ADMIT Hospitalist; ATTEND Internal Medicine
DX: E11.649 Type 2 diabetes mellitus with hypoglycemia without coma (principal); G93.41 Metabolic encephalopathy; I50.22 Chronic systolic (congestive) heart failure; N18.6 End stage renal disease; I25.10 Atherosclerotic heart disease of native coronary artery without angina pectoris; I11.0 Hypertensive heart disease with heart failure; E78.5 Hyperlipidemia, unspecified; E03.9 Hypothyroidism, unspecified; E11.319 Type 2 diabetes mellitus with unspecified diabetic retinopathy without macular edema; E11.40 Type 2 diabetes mellitus with diabetic neuropathy, unspecified; D69.6 Thrombocytopenia, unspecified; T68.XXXA Hypothermia, initial encounter; I25.2 Old myocardial infarction; Z95.1 Presence of aortocoronary bypass graft; Z79.4 Long term (current) use of insulin; Z88.0 Allergy status to penicillin; Z99.2 Dependence on renal dialysis; Z80.9 Family history of malignant neoplasm, unspecified; Z82.49 Family history of ischemic heart disease and other diseases of the circulatory system; Z83.3 Family history of diabetes mellitus; Z84.1 Family history of disorders of kidney and ureter; X58.XXXA Exposure to other specified factors, initial encounter

== ENCOUNTER 2018-05-05 20:12 | Inpatient (IN) | payer OTHER ==
[~2018-05-05] VITALS: Ht 167.6 cm; Wt 122.2 kg
[~2018-05-05 20:12] MED LIST changes: -AMLO-114 PO; -BD INSULIN; +FURO80TA63 PO; -IMDSR/30 PO; -INSDGI SC; -INSPMPNVLG; +ISOS30TA35 PO; -NTRGSL/4 UT; -TAMS0.4C38 PO
[2018-05-05] MEDS ORDERED: ONDANSETRON INJ 2 MG/ML 2 ML VIAL IV STA (20:20)
[2018-05-05] MEDS ORDERED: SODIUM CHLORIDE 0.9% 500ML 500 ML IV STA (20:20)
--- NOTE | 2018-05-05 20:21 | EMERGENCY ROOM VISIT NOTE ---
History Report prepared by Nicole: Deep Almanza Under the Supervision of: Dr. Hermilo Maciel D.O. First contact with patient: 20:13 Chief Complaint: ABDOMINAL PAIN Stated Complaint: L LOWER AB PAIN History of Present Illness The patient is a 47 year old male who presents to the Emergency Room via EMS with complaints of constant LLQ abdominal pain that began a week ago. Patient states he has had diarrhea for a week which he believes is due to a new medication he began last week after being discharged from the ER. Patient adds the diarrhea resolved this morning and his bowel movement appeared "whitish brown". Patient states he is on Dialysis. He states his urine has been "clear" and not cloudy. He adds he stills makes urine. Patient adds he has a catheter. He states he still has his appendix and gallbladder. Patient states he has not taken any medications for his abdominal pain. Patient states his PCP is Dr. Marcelino, who he states he saw and was "given no conclusion" for his abdominal pain. He adds he had a CT done 10 days ago which "did not show anything". He states he has recently stopped taking Lisinopril. Patient states he had nausea 3 days ago but it has resolved. He denies rectal pain, melena, hematochezia, and vomiting. Source of History: patient Onset: A week ago Position: abdomen (LLQ) Timing: constant Modifying Factors (Relieving): other (None) Associated Symptoms: No nausea, No vomiting, No melena, No hematochezia Note: Negative rectal pain. Review of Systems See HPI for pertinent positives & negatives. A total of 10 systems reviewed and were otherwise negative. Past Medical & Surgical Medical Problems: (1) Diabetes mellitus, type II (2) Diabetic neuropathy (3) Diabetic retinopathy (4) Dyslipidemia (5) ESRD (end stage renal disease) (6) Heart disease (7) Hyperkalemia (8) Hypertension (9) Hypoglycemia (10) Hypothyroidism (11) Lymphadenopathy (12) Myocardial infarction (13) SOB (shortness of breath) (14) Splenomegaly (15) Systolic CHF, chronic (16) Thrombocytopenia Surgical Problems: (1) H/O heart bypass surgery (2) Hx of CABG Family History Cancer Diabetes mellitus Heart disease Hypertension Kidney disease Kidney stones Social History Smoking Status: Never Smoker Alcohol Use: none Drug Use: none Marital Status: single Housing Status: lives with family Occupation Status: employed Current/Historical Medications Scheduled Amlodipine Besylate (Amlodipine Besylate), 10 MG PO QAM Aspirin (Aspirin Ec), 81 MG PO QAM Atorvastatin (Lipitor), 80 MG PO QPM Carvedilol (Carvedilol), 18.75 MG PO QAM Furosemide (Lasix), 160 MG PO QAM Furosemide (Lasix), 80 MG PO QPM Insulin Aspart (Novolog), 1 DOSE SC AC Insulin Detemir (Levemir Flextouch), 10 UNITS SC HS Isosorbide Mononitrate Ext Rel (Imdur Ext Rel), 30 MG PO QAM Levothyroxine Sodium (Levothyroxine Sodium), 25 MCG PO QAM Sevelamer Carbonate (Renvela), 3,200 MG PO TIDM Sevelamer Carbonate (Renvela), 1,600 MG PO UD Tamsulosin HCl (Tamsulosin HCl), 0.4 MG PO QPM Scheduled PRN Acetaminophen (Tylenol), 500 MG PO Q4H PRN for Pain Diphenhydramine Hcl (Benadryl Allergy), 25 MG PO UD PRN for ALLERGIC REACTION Allergies Coded Allergies: Penicillins (Verified Allergy, Severe, ANAPHYLAXIS, 03/30/18) Physical Exam Vital Signs Date Time Temp Pulse Resp B/P (MAP) Pulse Ox O2 Delivery O2 Flow Rate FiO2 05/05/18 22:24 84 20 179/85 97 Room Air 05/05/18 21:17 84 18 158/81 98 Room Air 05/05/18 20:44 37.0 85 16 148/74 100 Room Air 05/05/18 20:22 81 Physical Exam GENERAL: Patient is awake, alert, and in no acute distress. Patient is resting comfortably and showing no signs of anxiety EYES: The conjunctivae are clear. The pupils are round and reactive. EARS, NOSE, MOUTH AND THROAT: The nose is without any evidence of any deformity. Mucous membranes are moist. Tongue is midline NECK: The neck is nontender and supple. RESPIRATORY: Normal respiratory effort is noted. There is no evidence of wheezing rhonchi or rales to auscultation. CARDIOVASCULAR: Regular rate and rhythm noted. There no murmurs rubs or gallops normal S1 normal S2 GASTROINTESTINAL: Moderately distended. PD catheter noted in lower abdomen. Lower abdomen tenderness to palpation otherwise the abdomen is soft. Bowel sounds are present in all quadrants. No guarding or rigidity. BACK: No midline tenderness or or step-off noted range of motion in flexion extension as well as rotation no signs of muscle spasm noted. MUSCULOSKELETAL/EXTREMITIES: There is no evidence of gross deformity. Full range of motion is noted in the hips and shoulders. SKIN: Pedal edema bilaterally otherwise there is no obvious evidence of any rash. There are no petechiae, pallor or cyanosis noted. NEUROLOGIC: Patient is awake alert and oriented x3. Medical Decision & Procedures ER Provider Diagnostic Interpretation: Radiology results as stated below per my review and radiologist interpretation: ABDOMEN AND PELVIS CT WITHOUT CONTRAST CT DOSE: 1601.99 mGy.cm HISTORY: Acute left lower quadrant abdominal pain continued LLQ pain TECHNIQUE: Multiaxial CT images of the abdomen and pelvis were performed without contrast. A dose lowering technique was utilized adhering to the principles of ALARA. COMPARISON STUDY: CT abdomen and pelvis 04/25/2018. FINDINGS: Prior median sternotomy. The imaged inferior cardiac chambers are upper limits of normal in size with coronary arterial and mitral annular calcifications noted. Calcified granulomata about the left lung base. 4 mm solid nodule of the basal left lower lobe. Contracted gallbladder with cholelithiasis. Liver is unremarkable. No intrahepatic biliary ductal dilation. Spleen is enlarged measuring 15.3 cm in length. Pancreas and right adrenal gland are unremarkable. Mild thickening of the left adrenal gland. Mild cortical thinning about the bilateral kidneys with extensive renal vascular calcifications. Cortical scarring about the superior pole left kidney. Mild nonspecific bilateral perinephric stranding. Ureters are unremarkable. Mild circumferential wall thickening of the bladder. Small fat filled left inguinal hernia. Aorta and IVC are within normal limits. Mildly prominent periaortic, retrocrural, iliac chain and periportal lymph nodes are redemonstrated with periaortic lymph nodes measuring up to 9 mm, unchanged from comparison. There is no bowel obstruction. Peritoneal dialysis catheter is again noted coiling within the left lateral lower abdomen. Trace amount of abdominal pelvic ascites likely related to the catheter. There is moderate amount of pneumoperitoneum, notably within the upper abdomen. Mild wall thickening of the rectum redemonstrated which has improved from comparison study. No free air within the retroperitoneum. There is mild wall thickening about the distal transverse colon and splenic flexure, descending and proximal sigmoid colon. Moderate subcutaneous edema about the body wall. Subxiphoid ventral abdominal wall hernia, diastases 3.2 cm. Fluid containing small bowel moderate periumbilical hernia. Bones appear to be intact. Degenerative changes of the lower lumbar spine. IMPRESSION: 1. Peritoneal dialysis catheter redemonstrated with small volume of abdominal pelvic ascites likely related to normally functioning catheter. 2. Moderate amount of pneumoperitoneum is suspicious for perforated viscus. Correlate clinically to exclude recent abdominal intervention which could alternatively be a cause for the pneumoperitoneum. 3. Mild wall thickening of the colon extends from the distal transverse colon through the rectum suggesting partial distention or acute colitis with proctitis. The degree of rectal wall thickening has mildly improved from comparison study 04/25/2018. 4. Cholelithiasis without CT evidence of acute cholecystitis. 5. Splenomegaly. 6. Additional findings as above. Electronically signed by: Florencio Coronado M.D. 05/05/2018 9:17 PM CHEST ONE VIEW PORTABLE HISTORY: 47 years-old Male EVALUATE ALTERED MENTAL STATUS/WEAKNESS acute weakness with altered mental status COMPARISON: Chest radiograph 03/30/2018 TECHNIQUE: Portable AP view of the chest FINDINGS: Cardiac silhouette is upper limits of normal in size. Prior median sternotomy. Mild right hemidiaphragmatic elevation without pneumothorax, pleural effusion, focal airspace consolidation or overt pulmonary edema. The bones of the chest appear grossly intact. IMPRESSION: No acute process. The above report was generated using voice recognition software. It may contain grammatical, syntax or spelling errors. Electronically signed by: Florencio Coronado M.D. 05/05/2018 8:57 PM Laboratory Results 05/05/18 20:40 Red Blood Count 3.07, Mean Corpuscular Volume 90.6, Mean Corpuscular Hemoglobin 29.6, Mean Corpuscular Hemoglobin Concent 32.7, Mean Platelet Volume 8.1, Neutrophils (%) (Auto) 77.4, Lymphocytes (%) (Auto) 11.1, Monocytes (%) (Auto) 7.8, Eosinophils (%) (Auto) 3.1, Basophils (%) (Auto) 0.3, Neutrophils # (Auto) 5.72, Lymphocytes # (Auto) 0.82, Monocytes # (Auto) 0.58, Eosinophils # (Auto) 0.23, Basophils # (Auto) 0.02 05/05/18 20:40 Test 05/05/18 20:40 05/05/18 21:15 White Blood Count 7.39 K/uL (4.8-10.8) Red Blood Count 3.07 M/uL (4.7-6.1) Hemoglobin 9.1 g/dL (14.0-18.0) Hematocrit 27.8 % (42-52) Mean Corpuscular Volume 90.6 fL (80-100) Mean Corpuscular Hemoglobin 29.6 pg (25-34) Mean Corpuscular Hemoglobin Concent 32.7 g/dl (32-36) Platelet Count 143 K/uL (130-400) Mean Platelet Volume 8.1 fL (7.4-10.4) Neutrophils (%) (Auto) 77.4 % Lymphocytes (%) (Auto) 11.1 % Monocytes (%) (Auto) 7.8 % Eosinophils (%) (Auto) 3.1 % Basophils (%) (Auto) 0.3 % Neutrophils # (Auto) 5.72 K/uL (1.4-6.5) Lymphocytes # (Auto) 0.82 K/uL (1.2-3.4) Monocytes # (Auto) 0.58 K/uL (0.11-0.59) Eosinophils # (Auto) 0.23 K/uL (0-0.5) Basophils # (Auto) 0.02 K/uL (0-0.2) RDW Standard Deviation 42.1 fL (36.4-46.3) RDW Coefficient of Variation 12.8 % (11.5-14.5) Immature Granulocyte % (Auto) 0.3 % Immature Granulocyte # (Auto) 0.02 K/uL (0.00-0.02) Anion Gap 6.0 mmol/L (3-11) Est Creatinine Clear Calc Drug Dose 13.1 ml/min Estimated GFR () 7.6 Estimated GFR (Non- 6.6 BUN/Creatinine Ratio 5.5 (10-20) Calcium Level 7.9 mg/dl (8.5-10.1) Magnesium Level 2.8 mg/dl (1.8-2.4) Total Bilirubin 0.3 mg/dl (0.2-1) Direct Bilirubin 0.1 mg/dl (0-0.2) Aspartate Amino Transf (AST/SGOT) 35 U/L (15-37) Alanine Aminotransferase (ALT/SGPT) 41 U/L (12-78) Alkaline Phosphatase 201 U/L (45-117) Total Protein 5.6 gm/dl (6.4-8.2) Albumin 1.7 gm/dl (3.4-5.0) Lipase 98 U/L (73-393) Urine Color YELLOW Urine Appearance CLEAR (CLEAR) Urine pH 8.0 (4.5-7.5) Urine Specific [place] 1.015 (1.000-1.030) Urine Protein 2+ (NEG) Urine Glucose (UA) TRACE (NEG) Urine Ketones NEG (NEG) Urine Occult Blood 1+ (NEG) Urine Nitrite NEG (NEG) Urine Bilirubin NEG (NEG) Urine Urobilinogen NEG (NEG) Urine Leukocyte Esterase TRACE (NEG) Urine WBC (Auto) 1-5 /hpf (0-5) Urine RBC (Auto) 0-4 /hpf (0-4) Urine Hyaline Casts (Auto) 1-5 /lpf (0-5) Urine Epithelial Cells (Auto) 10-20 /lpf (0-5) Urine Bacteria (Auto) NEG (NEG) Laboratory results per my review. Medications Administered Medications (Trade) Dose Ordered Sig/Mitchell Route Start Time Stop Time Status Last Admin Dose Admin Sodium Chloride 500 ml @ 999 mls/hr Q31M STAT IV 05/05/18 20:20 05/05/18 20:50 DC 05/05/18 21:13 999 MLS/HR Ondansetron HCl (Zofran Inj) 4 mg NOW STAT IV 05/05/18 20:20 05/05/18 20:21 DC 05/05/18 21:13 4 MG Morphine Sulfate (MoRPHine SULFATE INJ) 4 mg Q15M PRN IV 05/05/18 20:30 05/19/18 20:29 05/05/18 21:13 4 MG ED Course 2013: The patient was evaluated in room C9. A complete history and physical examination were performed. 2020: Zofran Inj 4mg IV and NSS 1,000 ml @ 999 mls/hr IV 2030: Morphine Sulfate 4mg IV 2149: I reassessed the patient who is resting comfortably. 2337: Upon reevaluation, the patient will be further evaluated. I discussed results and treatment plan with him. He verbalizes agreement and understanding. I spoke with Dr. Cintron of the [facility]. The patient will be evaluated for further management and care. Medical Decision Prior records/ancillary studies reviewed. Triage Nursing notes reviewed. The patient's history was concerning for abdominal pain. Differential diagnosis: Etiologies such as appendicitis, diverticulitis, PUD, biliary pathology, UTI, pancreatitis, obstruction, mesenteric ischemia, aortic pathology, infections, inflammatory bowel disease, renal colic, as well as others were entertained. The patient is a 47-year-old male who presented to the emergency department for an evaluation of abdominal pain. The patient had significant left-sided abdominal pain. He was seen previously with similar complaints approximately 10 days ago. The patient had a CAT scan of the abdomen and pelvis. At that time he was found to have some signs of proctitis. Because of his worsening symptoms another CT was obtained. This did show extension of this inflammation of the colon also showed pneumoperitoneum. I was concerned this could be related to a ruptured hollow viscus. For this reason I discussed his case with the on-call general surgery group. They evaluated the patient. At this time I feel could be related to his peritoneal dialysis. The patient did not have a fever. His white blood cell count was normal. I discussed his case with the on -call [facility] hospitalist group. They have agreed to evaluate patient in the emergency department for further management and disposition. It is possible the patient may require further workup with gastroenterology. Medication Reconcilliation Current Medication List: was personally reviewed by me Blood Pressure Screening Patient's blood pressure: Elevated blood pressure Blood pressure disposition: Elevated BP felt to be situational Consults Time Called: [phone] Consulting Physician: Dr. Cintron - [facility] General Surgery Returned Call: [phone] I discussed the patient's case with Dr. Cintron. The patient will be evaluated for further management. Impression Primary Impression: LLQ abdominal pain Additional Impressions: Colitis Pneumoperitoneum Scribe Attestation The scribe's documentation has been prepared under my direction and personally reviewed by me in its entirety. I confirm that the note above accurately reflects all work, treatment, procedures, and medical decision making performed by me. Departure Information Dispostion Being Evaluated By Hospitalist Referrals Dalton Marcelino III, M.D. (PCP) Forms Call Back Authorization, HOME CARE DOCUMENTATION FORM, IMPORTANT VISIT INFORMATION Patient Instructions My [facility] Problem Qualifiers
[2018-05-05] MEDS ORDERED: MoRPHine SULFATE 4 MG/ML 1 ML CARP\\VIAL IV PRN (20:30)
[2018-05-05 20:54] LABS: BASO % 0.3 %; BASO ABS # 0.02 K/uL (0-0.2); EOS % 3.1 %; EOS ABS # 0.23 K/uL (0-0.5); HEMATOCRIT 27.8 % (42-52); HEMOGLOBIN 9.1 g/dL (14.0-18.0); IG# 0.02 K/uL (0.00-0.02); LYMPH % 11.1 %; LYMPH ABS # 0.82 K/uL (1.2-3.4); MEAN CELL VOLUME 90.6 fL (80-100); MEAN CORPUSCULAR HEMOGLOBIN 29.6 pg (25-34); MEAN CORPUSCULAR HGB CONC 32.7 g/dl (32-36); MEAN PLATELET VOLUME 8.1 fL (7.4-10.4); MONO % 7.8 %; MONO ABS # 0.58 K/uL (0.11-0.59); NEUT % 77.4 %; NEUT ABS # 5.72 K/uL (1.4-6.5); PLATELET COUNT 143 K/uL (130-400); RED CELL DISTRIBUTION WIDTH CV 12.8 % (11.5-14.5); RED CELL DISTRIBUTION WIDTH SD 42.1 fL (36.4-46.3); WHITE BLOOD COUNT 7.39 K/uL (4.8-10.8)
--- NOTE | 2018-05-05 20:58 | DIAGNOSTIC IMAGING REPORT ---
CHEST ONE VIEW PORTABLE HISTORY: 47 years-old Male EVALUATE ALTERED MENTAL STATUS/WEAKNESS acute weakness with altered mental status COMPARISON: Chest radiograph 03/30/2018 TECHNIQUE: Portable AP view of the chest FINDINGS: Cardiac silhouette is upper limits of normal in size. Prior median sternotomy. Mild right hemidiaphragmatic elevation without pneumothorax, pleural effusion, focal airspace consolidation or overt pulmonary edema. The bones of the chest appear grossly intact. IMPRESSION: No acute process. The above report was generated using voice recognition software. It may contain grammatical, syntax or spelling errors. Electronically signed by: Florencio Coronado M.D. 05/05/2018 8:57 PM Dictated Date/Time: 05/05/2018 8:56 PM
--- NOTE | 2018-05-05 21:18 | DIAGNOSTIC IMAGING REPORT ---
ABDOMEN AND PELVIS CT WITHOUT CONTRAST CT DOSE: 1601.99 mGy.cm HISTORY: Acute left lower quadrant abdominal pain continued LLQ pain TECHNIQUE: Multiaxial CT images of the abdomen and pelvis were performed without contrast. A dose lowering technique was utilized adhering to the principles of ALARA. COMPARISON STUDY: CT abdomen and pelvis 04/25/2018. FINDINGS: Prior median sternotomy. The imaged inferior cardiac chambers are upper limits of normal in size with coronary arterial and mitral annular calcifications noted. Calcified granulomata about the left lung base. 4 mm solid nodule of the basal left lower lobe. Contracted gallbladder with cholelithiasis. Liver is unremarkable. No intrahepatic biliary ductal dilation. Spleen is enlarged measuring 15.3 cm in length. Pancreas and right adrenal gland are unremarkable. Mild thickening of the left adrenal gland. Mild cortical thinning about the bilateral kidneys with extensive renal vascular calcifications. Cortical scarring about the superior pole left kidney. Mild nonspecific bilateral perinephric stranding. Ureters are unremarkable. Mild circumferential wall thickening of the bladder. Small fat filled left inguinal hernia. Aorta and IVC are within normal limits. Mildly prominent periaortic, retrocrural, iliac chain and periportal lymph nodes are redemonstrated with periaortic lymph nodes measuring up to 9 mm, unchanged from comparison. There is no bowel obstruction. Peritoneal dialysis catheter is again noted coiling within the left lateral lower abdomen. Trace amount of abdominal pelvic ascites likely related to the catheter. There is moderate amount of pneumoperitoneum, notably within the upper abdomen. Mild wall thickening of the rectum redemonstrated which has improved from comparison study. No free air within the retroperitoneum. There is mild wall thickening about the distal transverse colon and splenic flexure, descending and proximal sigmoid colon. Moderate subcutaneous edema about the body wall. Subxiphoid ventral abdominal wall hernia, diastases 3.2 cm. Fluid containing small bowel moderate periumbilical hernia. Bones appear to be intact. Degenerative changes of the lower lumbar spine. IMPRESSION: 1. Peritoneal dialysis catheter redemonstrated with small volume of abdominal pelvic ascites likely related to normally functioning catheter. 2. Moderate amount of pneumoperitoneum is suspicious for perforated viscus. Correlate clinically to exclude recent abdominal intervention which could alternatively be a cause for the pneumoperitoneum. 3. Mild wall thickening of the colon extends from the distal transverse colon through the rectum suggesting partial distention or acute colitis with proctitis. The degree of rectal wall thickening has mildly improved from comparison study 04/25/2018. 4. Cholelithiasis without CT evidence of acute cholecystitis. 5. Splenomegaly. 6. Additional findings as above. Electronically signed by: Florencio Coronado M.D. 05/05/2018 9:17 PM Dictated Date/Time: 05/05/2018 9:03 PM
[2018-05-05 21:31] LABS: ALBUMIN 1.7 gm/dl (3.4-5.0); CALCIUM 7.9 mg/dl (8.5-10.1); CREATININE 8.74 mg/dl (0.60-1.40); POTASSIUM 3.7 mmol/L (3.5-5.1); TOTAL PROTEIN 5.6 gm/dl (6.4-8.2)
[2018-05-05] MEDS ORDERED: INSU3INJ3 SC (21:55)
[2018-05-05] MEDS ORDERED: FLM4 PO (21:55)
[2018-05-05] MEDS ORDERED: NVLG SC (21:55)
[2018-05-05] MEDS ORDERED: SEVE800T7 PO (21:55)
[2018-05-05] MEDS ORDERED: NRV/10 PO (21:55)
--- NOTE | 2018-05-05 23:30 | Surgery Consultation ---
Consultation Date of Consultation: May 05, 2018. Attending Physician: Reason for Consultation: Abdominal pain History of Present Illness Patient is a 47M w/ PMHx of DM II, ESRD, CHF, CABG x 5, NM, HTN, thrombocytopenia who presents to the ED with LLQ pain beginning a week ago. Reports he was seen in the ED approximately 10 days ago and was found to have proctitis and was sent home. He followed with his PCP who recommended milk of magnesia which he took Friday. Reports he ate a little after and threw up his meal. Denies hematemesis. Since he has not had any more episodes of N/V. Denies fever, chills. Reports he had a few small BM yesterday but did not move his bowels since Friday before that. He does still make urine and denies changes with this. He does have a peritoneal dialysis catheter in place. He last had dialysis this morning. Reports he follows with Dr. Elkins for nephrology. Dr. Alejandro is his PCP. WBC WNL. CT shows Peritoneal dialysis catheter redemonstrated with small volume of abdominal pelvic ascites likely related to normally functioning catheter. Moderate amount of pneumoperitoneum is suspicious for perforated viscus. Correlate clinically to exclude recent abdominal intervention which could alternatively be a cause for the pneumoperitoneum. Mild wall thickening of the colon extends from the distal transverse colon through the rectum suggesting partial distention or acute colitis with proctitis. The degree of rectal wall thickening has mildly improved from comparison study 04/25/2018. Cholelithiasis without CT evidence of acute cholecystitis. Splenomegaly. Past Medical/Surgical History Medical Problems: (1) Anemia Status: Acute (2) Bilateral leg pain Status: Acute (3) CAD (coronary artery disease) Status: Acute (4) Chronic kidney disease Status: Acute (5) Diabetes Status: Acute (6) Dyspnea Status: Acute (7) Dyspnea on exertion Status: Acute (8) End stage renal disease Status: Acute (9) Hypermagnesemia Status: Acute (10) Hypothermia Status: Acute (11) Lower extremity edema Status: Acute (12) Upper abdominal pain Status: Acute (13) Yeast UTI Status: Acute Family History Cancer Diabetes mellitus Heart disease Hypertension Kidney disease Kidney stones Social History Smoking Status: Never Smoker Drug Use: none Marital Status: single Housing Status: lives with family Occupation Status: employed Allergies Coded Allergies: Penicillins (Verified Allergy, Severe, ANAPHYLAXIS, 03/30/18) Home Medications Scheduled Amlodipine Besylate (Amlodipine Besylate), 10 MG PO QAM Aspirin (Aspirin Ec), 81 MG PO QAM Atorvastatin (Lipitor), 80 MG PO QPM Carvedilol (Carvedilol), 18.75 MG PO QAM Furosemide (Lasix), 160 MG PO QAM Furosemide (Lasix), 80 MG PO QPM Insulin Aspart (Novolog), 1 DOSE SC AC Insulin Detemir (Levemir Flextouch), 10 UNITS SC HS Isosorbide Mononitrate Ext Rel (Imdur Ext Rel), 30 MG PO QAM Levothyroxine Sodium (Levothyroxine Sodium), 25 MCG PO QAM Sevelamer Carbonate (Renvela), 3,200 MG PO TIDM Sevelamer Carbonate (Renvela), 1,600 MG PO UD Tamsulosin HCl (Tamsulosin HCl), 0.4 MG PO QPM Scheduled PRN Acetaminophen (Tylenol), 500 MG PO Q4H PRN for Pain Diphenhydramine Hcl (Benadryl Allergy), 25 MG PO UD PRN for ALLERGIC REACTION Current Inpatient Medications Current Inpatient Medications Medications (Trade) Dose Ordered Sig/Mitchell Route Start Time Stop Time Status Last Admin Dose Admin Morphine Sulfate (MoRPHine SULFATE INJ) 4 mg Q15M PRN IV 05/05/18 20:30 05/19/18 20:29 05/05/18 21:13 4 MG Review of Systems Constitutional: No fever, No chills Respiratory: No shortness of breath Cardiovascular: No chest pain Abdomen: + pain (Lower abdominal pain), + nausea (friday), + vomiting ( friday), No diarrhea, No constipation Genitourinary - Male: No hematuria, No dysuria Integumentary: No new/changing skin lesions, No color change Physical Exam Date Time Temp Pulse Resp B/P (MAP) Pulse Ox O2 Delivery O2 Flow Rate FiO2 05/05/18 22:24 84 20 179/85 97 Room Air 05/05/18 21:17 84 18 158/81 98 Room Air 05/05/18 20:44 37.0 85 16 148/74 100 Room Air 05/05/18 20:22 81 General Appearance: no apparent distress, + obese Head: normocephalic, atraumatic ENT: hearing grossly normal Respiratory/Chest: no respiratory distress Abdomen/GI: soft, no organomegaly, no pulsatile mass, + tenderness (B/L lower quadrant TTP, LUQ TTP) Neurologic/Psych: alert, normal mood/affect, oriented x 3 Skin: normal color, warm/dry Laboratory Results Last 24 Hours Test 05/05/18 20:40 05/05/18 21:15 White Blood Count 7.39 K/uL Red Blood Count 3.07 M/uL Hemoglobin 9.1 g/dL Hematocrit 27.8 % Mean Corpuscular Volume 90.6 fL Mean Corpuscular Hemoglobin 29.6 pg Mean Corpuscular Hemoglobin Concent 32.7 g/dl Platelet Count 143 K/uL Mean Platelet Volume 8.1 fL Neutrophils (%) (Auto) 77.4 % Lymphocytes (%) (Auto) 11.1 % Monocytes (%) (Auto) 7.8 % Eosinophils (%) (Auto) 3.1 % Basophils (%) (Auto) 0.3 % Neutrophils # (Auto) 5.72 K/uL Lymphocytes # (Auto) 0.82 K/uL Monocytes # (Auto) 0.58 K/uL Eosinophils # (Auto) 0.23 K/uL Basophils # (Auto) 0.02 K/uL RDW Standard Deviation 42.1 fL RDW Coefficient of Variation 12.8 % Immature Granulocyte % (Auto) 0.3 % Immature Granulocyte # (Auto) 0.02 K/uL Sodium Level 139 mmol/L Potassium Level 3.7 mmol/L Chloride Level 103 mmol/L Carbon Dioxide Level 30 mmol/L Anion Gap 6.0 mmol/L Blood Urea Nitrogen 48 mg/dl Creatinine 8.74 mg/dl Est Creatinine Clear Calc Drug Dose 13.1 ml/min Estimated GFR () 7.6 Estimated GFR (Non- 6.6 BUN/Creatinine Ratio 5.5 Random Glucose 79 mg/dl Calcium Level 7.9 mg/dl Magnesium Level 2.8 mg/dl Total Bilirubin 0.3 mg/dl Direct Bilirubin 0.1 mg/dl Aspartate Amino Transf (AST/SGOT) 35 U/L Alanine Aminotransferase (ALT/SGPT) 41 U/L Alkaline Phosphatase 201 U/L Total Protein 5.6 gm/dl Albumin 1.7 gm/dl Lipase 98 U/L Urine Color YELLOW Urine Appearance CLEAR Urine pH 8.0 Urine Specific [place] 1.015 Urine Protein 2+ Urine Glucose (UA) TRACE Urine Ketones NEG Urine Occult Blood 1+ Urine Nitrite NEG Urine Bilirubin NEG Urine Urobilinogen NEG Urine Leukocyte Esterase TRACE Urine WBC (Auto) 1-5 /hpf Urine RBC (Auto) 0-4 /hpf Urine Hyaline Casts (Auto) 1-5 /lpf Urine Epithelial Cells (Auto) 10-20 /lpf Urine Bacteria (Auto) NEG Assessment & Plan Abdominal pain, acute colitis w/ proctitis, pneumoperitoneum, perforated viscus ? air from dialysis catheter? Patient seen and examined with Dr. Cintron. Abdomen soft, non-distended, TTP in B/L lower quadrants. no N/V at this time. Vitals stable. afebrile. WBC WNL. No acute surgical intervention indicated at this time. Unclear as to whether pneumoperitoneum is due to dialysis catheter or true perforated viscus - more likely from catheter given patient is stable. Recommend admission per medical team for observation. Consult Nephrology, Consult GI, NPO, IVF, IV Zosyn, pain medication prn, anti -emetics prn, PPI. Repeat labs in AM. May consider repeat CT w/ oral contrast in AM to further evaluate. Will follow. Please contact with questions or concerns.
[2018-05-06] VITALS (7 sets, daily range): BP systolic 133–191; BP diastolic 79–110; PULSE 65–79; TEMP 36.3–37.1; O2SAT 97–100; Ht 167.6 cm; Wt 122.2 kg
[2018-05-06] MEDS ORDERED: PIPERACILL/TAZOBAC IV 4.5 GM in DEXTROSE 5% 100ML 100 ML IV SCH (00:30)
[2018-05-06] MEDS ORDERED: ACETAMINOPHEN 500 MG TAB PO PRN (00:30)
[2018-05-06] MEDS ORDERED: POLYETHYLENE (MIRALAX) 17 GM PACK PO PRN (00:30)
[2018-05-06] MEDS ORDERED: PIPERACILL/TAZOBAC CONSULT ACTIVE PRN (00:30)
[2018-05-06] MEDS ORDERED: ACETAMINOPHEN 325 MG TAB PO PRN (00:30)
[2018-05-06] MEDS ORDERED: SEVELAMER HYDROCH 800 MG TAB PO PRN (00:30)
[2018-05-06] MEDS ORDERED: MoRPHine SULFATE 4 MG/ML 1 ML CARP\\VIAL IV PRN (00:45)
[2018-05-06] MEDS ORDERED: CARBOHYDRATES FOR HYPOGLYCEMIA PO PRN (01:30)
[2018-05-06] MEDS ORDERED: GLUCAGON FOR INJ 1 MG VIAL IM PRN (01:30)
[2018-05-06] MEDS ORDERED: GLUCOSE 40% GEL 15 GM TUBE PO PRN (01:30)
[2018-05-06] MEDS ORDERED: DEXTROSE 50% 50 ML SYR IV PRN (01:30)
[2018-05-06] MEDS ORDERED: GLUCOSE 10 TABS/TUBE PO PRN (01:30)
[2018-05-06] MEDS ORDERED: NURSING DECISION MEDICATION ORDER SCH (01:30)
[2018-05-06] MEDS: SODIUM CHLORIDE 0.9% 1000ML 1,000 ML IV SCH ×2 (02:08→21:08)
[2018-05-06] MEDS ORDERED: CIPROFLOXACIN CONSULT ACTIVE PRN (02:15)
[2018-05-06] MEDS: METRONIDAZOLE / NSS 500 MG in PREMIXED NSS 100 ML IV SCH ×3 (02:26→17:29)
[2018-05-06] MEDS: CIPROFLOXACIN / D5W 400 MG in PREMIXED IN D5W 200 ML IV SCH (02:26)
--- NOTE | 2018-05-06 03:08 | HISTORY & PHYSICAL EXAMINATION ---
DATE OF ADMISSION: 05/06/2018 CHIEF COMPLAINT: Left abdominal pain. HISTORY OF PRESENT ILLNESS: This is a 47-year-old male with past medical history significant for diabetes type 2, CAD status post CABG, end-stage renal disease on peritoneal dialysis, diabetic neuropathy, thrombocytopenia, obesity, presents due to left abdominal pain. Patient was in the ER about 10 days ago with abdominal pain. At that time, CAT scan showed proctitis and he was discharged home and followed with family doctor who prescribed some milk of magnesia. The patient said last Friday he had a episode of vomiting, some nausea, but then he was okay, but he had small bowel movement but still having ongoing left lower quadrant abdominal pain. He was brought into the ER. In the ER, CAT scan of the abdomen and pelvis was done, which was showing some moderate amount of pneumoperitoneum suspicious for perforated viscus. Mild wall thickening of the colon extending from the distal transverse colon to the rectum suggesting partial distention or acute colitis with proctitis, rectal wall thickening was mildly improved from prior study on 04/25/2018, cholelithiasis, splenomegaly.Patient was seen by surgery in the ER and pneumoperitoneum thought to be mostly from the peritoneal catheter. The patient does not seem to sick. The patient is resting comfortably. His pain is better now, hemodynamically stable. Denies any fever, chills, no headaches, no blurred visions, no dizziness, no earaches, no runny nose, no sore throat. Has some runny nose, but no sore throat, no difficulty swallowing. No cough, no chest pain, no shortness of breath. Currently, no nausea or vomiting, no blood in the stools. He made some urine. Ambulates okay. ALLERGIES: PENICILLIN. PAST MEDICAL HISTORY: As mentioned above. PAST SURGICAL HISTORY: AV shunt, CABG, laser procedure of the eyes. MEDICATIONS: The patient is on aspirin 81 mg p.o. daily, Coreg patient takes 18.75 mg daily in the a.m., Lasix patient takes 160 mg in the morning and 80 mg in the evening, insulin sliding scale, Renvela 3200mg with meals and 1600 mg with snacks, Lipitor 80 mg p.o. daily, Flomax 0.4 mg p.o. daily, levothyroxine 25 mg p.o. daily, Levemir 10 mg p.o. at bedtime, nitroglycerin 0.4 mg sublingual p.r.n., amlodipine 10 mg p.o. daily, Imdur 30 mg p.o. daily, Tylenol 500 mg p.o. q. 4 hours p.r.n., Benadryl as needed. FAMILY HISTORY: Significant for brother who had cancer. Mother had lymphoma. Father had [place]. Mother has bypass. SOCIAL HISTORY: Single, quit smoking in 2013. Alcohol occasional. No drug use. REVIEW OF SYSTEMS: As per HPI. PHYSICAL EXAMINATION: GENERAL: The patient is obese, not in distress. VITAL SIGNS: Temperature 37, pulse 84, respiratory rate 20, blood pressure 148/74, oxygen 97% room air. HEENT: No pallor, no icterus. Pupils equal, round, and react to light . Neck No carotid bruits.No neck masses CARDIOVASCULAR: S1, S2, regular rate and rhythm, no murmur, no gallop. RESPIRATORY SYSTEM: Clear to auscultation bilaterally. No accessory muscle use. No wheezing, no crackles. ABDOMEN: Soft, bowel sounds present. Tenderness in the periumbilical region and left lower quadrant umbilical hernia seen. CENTRAL NERVOUS SYSTEM: Cranial nerves II-XII were grossly nonfocal. EXTREMITIES: No edema, no erythema. LABORATORIES: WBC 7.3, hemoglobin 9.1, hematocrit 27.8, platelets 143. Sodium 139, potassium 3.7, chloride 103, bicarbonate 30, BUN 40, creatinine 8.77, serum glucose 79, calcium 7.9, magnesium 2.8, total bilirubin 0.3, direct bilirubin 0.1, AST 35, ALT 41, alkaline phosphatase 201, lipase 98. Urinalysis trace positive. Chest x-ray: No acute process seen. CT of the abdomen and pelvis was trace amount of abdominal pelvic ascites, , moderate amount of pneumoperitoneum suspicious for perforated viscus. Correlate clinically. Mild wall thickening of the colon extends from the distal transverse colon to the rectum suggesting partial distention or acute colitis with proctitis, cholelithiasis without CT evidence of acute cholecystitis, splenomegaly. ASSESSMENT AND PLAN: This is a 47-year-old male who presents with abdominal pain and found to have possible pneumoperitoneum or colitis with proctitis. 1. Abdominal pain CAT scan showing colitis with proctitis, pneumoperitoneum thought to be mostly from peritoneal catheter. Starting on Cipro and Flagyl, also with some gentle fluids, nothing per mouth with medications, IV antiemetics, and IV pain medications and also consult gastrointestinal for further recommendations. Surgery on board. Monitor on the medical floor. 2. End-stage renal disease on peritoneal dialysis. Consult nephrology. On gentle fluids as above. We will monitor for volume overload. Currently, patient is nothing per mouth. 3. Diabetes on Levemir insulin sliding scale Will monitor blood sugar while patient is nothing per mouth. 4. History of coronary artery disease status post coronary artery bypass graft. Continue home medication of aspirin, Coreg, Lipitor, Imdur. Currently stable. 5. History of hypertension. Continue amlodipine and Imdur, Coreg, and Lasix. Monitor the blood pressure. 6. Hyperlipidemia. Continue statin. 7. Anemia mostly anemia of chronic disease. Monitor the labs. 8. BPH The patient is on Flomax. 7. Hypothyroidism. Continue Synthroid. . Deep vein thrombosis prophylaxis. Heparin subcutaneous. DISPOSITION: Admit to medical floor. Expect to discharge him and follow with family doctor. Level 1 full code. MTDD
[2018-05-06] MEDS: LEVOTHYROXINE 25 MCG TAB PO SCH (05:57)
[2018-05-06] MEDS: INSULIN ASPART 100 UNITS/ML 3 ML PEN SC SCH ×4 (05:57→21:07)
[2018-05-06 06:09] LABS: BASO % 0.1 %; BASO ABS # 0.01 K/uL (0-0.2); EOS % 3.1 %; EOS ABS # 0.23 K/uL (0-0.5); HEMOGLOBIN 10.1 g/dL (14.0-18.0); IG# 0.02 K/uL (0.00-0.02); LYMPH % 11.4 %; LYMPH ABS # 0.85 K/uL (1.2-3.4); MEAN CELL VOLUME 90.4 fL (80-100); MEAN CORPUSCULAR HEMOGLOBIN 30.4 pg (25-34); MEAN CORPUSCULAR HGB CONC 33.7 g/dl (32-36); MEAN PLATELET VOLUME 8.7 fL (7.4-10.4); MONO % 8.7 %; MONO ABS # 0.65 K/uL (0.11-0.59); NEUT % 76.4 %; NEUT ABS # 5.71 K/uL (1.4-6.5); PLATELET COUNT 140 K/uL (130-400); RED CELL DISTRIBUTION WIDTH CV 12.9 % (11.5-14.5); RED CELL DISTRIBUTION WIDTH SD 42.1 fL (36.4-46.3); WHITE BLOOD COUNT 7.47 K/uL (4.8-10.8)
[2018-05-06 06:50] LABS: CALCIUM 7.7 mg/dl (8.5-10.1); CREATININE 8.95 mg/dl (0.60-1.40); POTASSIUM 3.9 mmol/L (3.5-5.1)
[2018-05-06] MEDS ORDERED: INSULIN ASPART 100 UNITS/ML 3 ML PEN SC SCH (07:00)
[2018-05-06] MEDS: ONDANSETRON INJ 2 MG/ML 2 ML VIAL IV PRN (07:11)
[2018-05-06] MEDS: SEVELAMER HYDROCH 800 MG TAB PO SCH ×3 (07:12→17:28)
[2018-05-06 07:28] LABS: PTT PATIENT 26.1 SECONDS (21.0-31.0)
[2018-05-06] MEDS: ISOSORBIDE MONONITRATE 30 MG TABCR PO SCH (08:34)
[2018-05-06] MEDS: CARVEDILOL 6.25 MG TAB PO SCH (08:34)
[2018-05-06] MEDS: AMLODIPINE BESYLATE 5 MG TAB PO SCH (08:35)
[2018-05-06] MEDS: ASPIRIN 81 MG ECTAB PO SCH (08:35)
[2018-05-06] MEDS: FUROSEMIDE 80 MG TAB PO SCH ×2 (08:36→21:03)
[2018-05-06] MEDS: HEPARIN SOD 5000 UNIT/0.5 ML CARP SQ SCH ×3 (08:46→21:08)
--- NOTE | 2018-05-06 09:44 | Surgery Progress Note ---
Surgery Progress Note Date of Service May 06, 2018. Subjective LLQ pain improved from 8 last night to 3 this AM, no BM since admission Objective Vital Signs: Date Time Temp Pulse Resp B/P (MAP) Pulse Ox O2 Delivery O2 Flow Rate FiO2 05/06/18 08:35 100 Room Air 05/06/18 07:57 37.1 74 20 141/83 (102) 100 Room Air 05/06/18 02:10 Room Air 05/06/18 01:40 36.3 79 18 178/92 100 Room Air 05/06/18 01:19 77 20 181/98 97 Room Air 05/05/18 22:24 84 20 179/85 97 Room Air 05/05/18 21:17 84 18 158/81 98 Room Air 05/05/18 20:44 37.0 85 16 148/74 100 Room Air 05/05/18 20:22 81 Abdomen: non distended, soft, + tenderness (minimal LLQ) Laboratory Results: Results Past 24 Hours Test 05/05/18 20:40 05/05/18 21:15 05/06/18 05:49 05/06/18 05:56 Range/Units White Blood Count 7.39 7.47 4.8-10.8 K/uL Red Blood Count 3.07 3.32 4.7-6.1 M/uL Hemoglobin 9.1 10.1 14.0-18.0 g/dL Hematocrit 27.8 30.0 42-52 % Mean Corpuscular Volume 90.6 90.4 80-100 fL Mean Corpuscular Hemoglobin 29.6 30.4 25-34 pg Mean Corpuscular Hemoglobin Concent 32.7 33.7 32-36 g/dl Platelet Count 143 140 130-400 K/uL Mean Platelet Volume 8.1 8.7 7.4-10.4 fL Neutrophils (%) (Auto) 77.4 76.4 % Lymphocytes (%) (Auto) 11.1 11.4 % Monocytes (%) (Auto) 7.8 8.7 % Eosinophils (%) (Auto) 3.1 3.1 % Basophils (%) (Auto) 0.3 0.1 % Neutrophils # (Auto) 5.72 5.71 1.4-6.5 K/uL Lymphocytes # (Auto) 0.82 0.85 1.2-3.4 K/uL Monocytes # (Auto) 0.58 0.65 0.11-0.59 K/uL Eosinophils # (Auto) 0.23 0.23 0-0.5 K/uL Basophils # (Auto) 0.02 0.01 0-0.2 K/uL RDW Standard Deviation 42.1 42.1 36.4-46.3 fL RDW Coefficient of Variation 12.8 12.9 11.5-14.5 % Immature Granulocyte % (Auto) 0.3 0.3 % Immature Granulocyte # (Auto) 0.02 0.02 0.00-0.02 K/uL Sodium Level 139 138 136-145 mmol/L Potassium Level 3.7 3.9 3.5-5.1 mmol/L Chloride Level 103 105 98-107 mmol/L Carbon Dioxide Level 30 25 21-32 mmol/L Anion Gap 6.0 8.0 3-11 mmol/L Blood Urea Nitrogen 48 49 7-18 mg/dl Creatinine 8.74 8.95 0.60-1.40 mg/dl Est Creatinine Clear Calc Drug Dose 13.1 12.7 ml/min Estimated GFR () 7.6 7.4 Estimated GFR (Non- 6.6 6.4 BUN/Creatinine Ratio 5.5 5.5 10-20 Random Glucose 79 89 70-99 mg/dl Calcium Level 7.9 7.7 8.5-10.1 mg/dl Magnesium Level 2.8 1.8-2.4 mg/dl Total Bilirubin 0.3 0.2-1 mg/dl Direct Bilirubin 0.1 0-0.2 mg/dl Aspartate Amino Transf (AST/SGOT) 35 15-37 U/L Alanine Aminotransferase (ALT/SGPT) 41 12-78 U/L Alkaline Phosphatase 201 45-117 U/L Total Protein 5.6 6.4-8.2 gm/dl Albumin 1.7 3.4-5.0 gm/dl Lipase 98 73-393 U/L Urine Color YELLOW Urine Appearance CLEAR CLEAR Urine pH 8.0 4.5-7.5 Urine Specific [place] 1.015 1.000-1.030 Urine Protein 2+ NEG Urine Glucose (UA) TRACE NEG Urine Ketones NEG NEG Urine Occult Blood 1+ NEG Urine Nitrite NEG NEG Urine Bilirubin NEG NEG Urine Urobilinogen NEG NEG Urine Leukocyte Esterase TRACE NEG Urine WBC (Auto) 1-5 0-5 /hpf Urine RBC (Auto) 0-4 0-4 /hpf Urine Hyaline Casts (Auto) 1-5 0-5 /lpf Urine Epithelial Cells (Auto) 10-20 0-5 /lpf Urine Bacteria (Auto) NEG NEG Bedside Glucose 87 70-99 mg/dl Test 05/06/18 07:08 Range/Units Prothrombin Time 10.8 9.0-12.0 SECONDS Prothromb Time International Ratio 1.0 0.9-1.1 Activated Partial Thromboplast Time 26.1 21.0-31.0 SECONDS Partial Thromboplastin Ratio 1.0 Assessment & Plan colitis WBC remains normal, exam benign treated with 10 days vanco last month for c. diff small pneumoperitoneum likely from dialysis GI consult requested
--- NOTE | 2018-05-06 12:46 | Gastrointestinal Consultation ---
Gastrointestinal Consultation Date of Consultation: May 06, 2018 Attending Physician: Aldair Max Consulting Physician: Hermilo Aquino Reason for Consultation: Colitis History of Present Illness Patient is a 47 year old male w PMHx of DM II, CAD s/p CABG, ESRD on peritoneal dialysis, diabetic neuropathy, thrombocytopenia, obesity who presented to ED w c /o LLQ abd pain x 12 days. He had initially presented to ED 10 days ago w similar symptoms. CT abd/pelvis as that time showed proctitis and he was also recommended to try Milk of Mg for constipation. He tried this and said he had a small BM. Then later on he reports stools are looser. Denies any rectal bleeding or dark tarry stools. Of note he was treated with Vancomycin up till 9 days ago for Cdiff + (first episode in mid March). Admission labs here showed no leukocytosis, chronic anemia, no coagulopathy, BMP unremarkable except ESR with elevated BUN/Cr. LFTs, lipase normal. CT abd/ pelvis w/o contrast showed presence of peritoneal dialysis catheter w small volume pelvis ascites, moderate amt of pneumoperitoneum suspicious for perforated viscus but upon evaluation by Surgery, suspected this finding may be related to dialysis catheter. + mild wall thickening of colon from distal transverse to rectum w partial distension or acute colitis w proctitis. Rectal wall thickening improved compared to study on 04/25/18. + cholelithiasis w/o cholecystitis, splenomegaly, liver unremarkable. Pt denies any hx of IBD. + uncle w colon ca. He denies any previous EGD or colonoscopy procedures. Past Medical/Surgical History Medical Problems: (1) Anemia Status: Acute (2) Bilateral leg pain Status: Acute (3) CAD (coronary artery disease) Status: Acute (4) Chronic kidney disease Status: Acute (5) Colitis Status: Acute (6) Diabetes Status: Acute (7) Dyspnea Status: Acute (8) Dyspnea on exertion Status: Acute (9) End stage renal disease Status: Acute (10) Hypermagnesemia Status: Acute (11) Hypothermia Status: Acute (12) LLQ abdominal pain Status: Acute (13) Lower extremity edema Status: Acute (14) Pneumoperitoneum Status: Acute (15) Upper abdominal pain Status: Acute (16) Yeast UTI Status: Acute Past Medical History: See HPI above Past Surgical History: See HPI above, AV shunt, dialysis catheter placement, laser procedures on eyes. Family History Cancer Diabetes mellitus Heart disease Hypertension Kidney disease Kidney stones Social History Smoking Status: Never Smoker Alcohol Use: none Drug Use: none Marital Status: single Housing Status: lives with family Occupation Status: employed Allergies Coded Allergies: Penicillins (Verified Allergy, Severe, ANAPHYLAXIS, 03/30/18) Current Medications Home Meds and Scripts Medications Dose Route/Sig Max Daily Dose Days Date Category Dose Instructions Levemir Flextouch (Insulin Detemir) 100 Unit/Ml Inj 10 Units SC HS 04/25/18 Reported Amlodipine Besylate 10 Mg Tab 10 Mg PO QAM 04/25/18 Reported Tamsulosin HCl 0.4 Mg Cap 0.4 Mg PO QPM 04/25/18 Reported Novolog (Insulin Aspart) 100 Units/Ml Inj 1 Dose SC AC 04/25/18 Reported COVERAGE DIRECTED BY SLIDING SCALE Renvela (Sevelamer Carbonate) 800 Mg Tab 1,600 Mg PO UD 04/25/18 Reported TAKE 2 TABLETS WITH SNACKS Lasix (Furosemide) 80 Mg Tab 80 Mg PO QPM 03/30/18 Reported Imdur Ext Rel (Isosorbide Mononitrate) 30 Mg Tabcr 30 Mg PO QAM 11/09/17 Reported Lasix (Furosemide) 80 Mg Tab 160 Mg PO QAM 02/03/17 Reported Carvedilol 12.5 Mg Tab 18.75 Mg PO QAM 12/23/16 Reported TAKE 1 1/2 TABLETS A DAY Renvela (Sevelamer Carbonate) 800 Mg Tab 3,200 Mg PO TIDM 08/23/16 Reported TAKE 4 TABLETS WIH MEALS Tylenol (Acetaminophen) 500 Mg Tab 500 Mg PO Q4H PRN 04/23/16 Reported Benadryl Allergy (Diphenhydramine Hcl) 25 Mg Tab 25 Mg PO UD PRN 04/23/16 Reported TAKE PER PACKAGE DIRECTIONS Levothyroxine Sodium 25 Mcg Tab 25 Mcg PO QAM 11/02/15 Reported Aspirin Ec (Aspirin) 81 Mg Tab 81 Mg PO QAM 01/12/14 Reported Lipitor (Atorvastatin Calcium) 80 Mg Tab 80 Mg PO QPM 01/12/14 Reported Review of Systems Constitutional: No fever, No chills Respiratory: No cough, No shortness of breath Cardiac: No chest pain Abdomen: + pain, + diarrhea, No nausea, No vomiting, No GI bleeding Skin: No rash, No itch, No jaundice Physical Exam Date Time Temp Pulse Resp B/P (MAP) Pulse Ox O2 Delivery O2 Flow Rate FiO2 05/06/18 11:58 37.0 73 16 143/80 (101) 99 Room Air 05/06/18 08:35 100 Room Air 05/06/18 07:57 37.1 74 20 141/83 (102) 100 Room Air 05/06/18 07:05 Room Air 05/06/18 02:10 Room Air 05/06/18 01:40 36.3 79 18 178/92 100 Room Air 05/06/18 01:19 77 20 181/98 97 Room Air 05/05/18 22:24 84 20 179/85 97 Room Air 05/05/18 21:17 84 18 158/81 98 Room Air 05/05/18 20:44 37.0 85 16 148/74 100 Room Air 05/05/18 20:22 81 General Appearance: WD/WN, no apparent distress Eyes: normal inspection, PERRL, EOMI Neck: supple, no JVD, trachea midline Respiratory/Chest: normal breath sounds, no respiratory distress, no accessory muscle use Cardiovascular: regular rate, rhythm, no gallop, no murmur Abdomen: + distended (he has peritoneal fluid dwelling), + tenderness (LLQ), + pertinent finding (umbilical hernia which is tender to touch and a bit erythematous. he said was evaluated by Surgery team and no surgery planned) Laboratory Results Last 24 Hours Test 05/05/18 20:40 05/05/18 21:15 05/06/18 05:49 05/06/18 05:56 White Blood Count 7.39 K/uL 7.47 K/uL Red Blood Count 3.07 M/uL 3.32 M/uL Hemoglobin 9.1 g/dL 10.1 g/dL Hematocrit 27.8 % 30.0 % Mean Corpuscular Volume 90.6 fL 90.4 fL Mean Corpuscular Hemoglobin 29.6 pg 30.4 pg Mean Corpuscular Hemoglobin Concent 32.7 g/dl 33.7 g/dl Platelet Count 143 K/uL 140 K/uL Mean Platelet Volume 8.1 fL 8.7 fL Neutrophils (%) (Auto) 77.4 % 76.4 % Lymphocytes (%) (Auto) 11.1 % 11.4 % Monocytes (%) (Auto) 7.8 % 8.7 % Eosinophils (%) (Auto) 3.1 % 3.1 % Basophils (%) (Auto) 0.3 % 0.1 % Neutrophils # (Auto) 5.72 K/uL 5.71 K/uL Lymphocytes # (Auto) 0.82 K/uL 0.85 K/uL Monocytes # (Auto) 0.58 K/uL 0.65 K/uL Eosinophils # (Auto) 0.23 K/uL 0.23 K/uL Basophils # (Auto) 0.02 K/uL 0.01 K/uL RDW Standard Deviation 42.1 fL 42.1 fL RDW Coefficient of Variation 12.8 % 12.9 % Immature Granulocyte % (Auto) 0.3 % 0.3 % Immature Granulocyte # (Auto) 0.02 K/uL 0.02 K/uL Sodium Level 139 mmol/L 138 mmol/L Potassium Level 3.7 mmol/L 3.9 mmol/L Chloride Level 103 mmol/L 105 mmol/L Carbon Dioxide Level 30 mmol/L 25 mmol/L Anion Gap 6.0 mmol/L 8.0 mmol/L Blood Urea Nitrogen 48 mg/dl 49 mg/dl Creatinine 8.74 mg/dl 8.95 mg/dl Est Creatinine Clear Calc Drug Dose 13.1 ml/min 12.7 ml/min Estimated GFR () 7.6 7.4 Estimated GFR (Non- 6.6 6.4 BUN/Creatinine Ratio 5.5 5.5 Random Glucose 79 mg/dl 89 mg/dl Calcium Level 7.9 mg/dl 7.7 mg/dl Magnesium Level 2.8 mg/dl Total Bilirubin 0.3 mg/dl Direct Bilirubin 0.1 mg/dl Aspartate Amino Transf (AST/SGOT) 35 U/L Alanine Aminotransferase (ALT/SGPT) 41 U/L Alkaline Phosphatase 201 U/L Total Protein 5.6 gm/dl Albumin 1.7 gm/dl Lipase 98 U/L Urine Color YELLOW Urine Appearance CLEAR Urine pH 8.0 Urine Specific [place] 1.015 Urine Protein 2+ Urine Glucose (UA) TRACE Urine Ketones NEG Urine Occult Blood 1+ Urine Nitrite NEG Urine Bilirubin NEG Urine Urobilinogen NEG Urine Leukocyte Esterase TRACE Urine WBC (Auto) 1-5 /hpf Urine RBC (Auto) 0-4 /hpf Urine Hyaline Casts (Auto) 1-5 /lpf Urine Epithelial Cells (Auto) 10-20 /lpf Urine Bacteria (Auto) NEG Bedside Glucose 87 mg/dl Test 05/06/18 07:08 05/06/18 11:51 05/06/18 12:14 Prothrombin Time 10.8 SECONDS Prothromb Time International Ratio 1.0 Activated Partial Thromboplast Time 26.1 SECONDS Partial Thromboplastin Ratio 1.0 Bedside Glucose 127 mg/dl Impression Patient is a 47 year old male w LLQ abd pain, CT abd/pelvis w/o contrast w signs of colon wall thickening from distal transverse colon to rectum, pattern may be suggestive of ischemic colitis. He recently was treated for Cdiff infection. Bowels currently loose w/o signs of rectal bleeding. ? pneumoperitoneum - seen and evaluated by Surgery team, suspected CT scan finding related to peritoneal dialysis catheter. He doesn't have any peritoneal signs. Plan - Check Cdiff and Stool cx - Cipro/Flagyl IV antibiotics - Ok for [place] diet (renal, diabetic, AHA) - Recommend colonoscopy evaluation in 4-6 weeks' time. - Surgery following, appreciate recs. ATTESTATION: I have performed a history and physical examination of this patient and reviewed the electronic record. Specifically on physical examination there is minimal LLQ tenderness. I suspect that his previous positive C difficile represented carrier state rather than acute infection. I have discussed the case with IAM Aguirre. The above note reflects my findings, conclusions , and recommendations. Hermilo Aquino MD
--- NOTE | 2018-05-06 13:02 | Progress Note ---
Medicine Progress Note Date & Time of Visit: May 06, 2018 at 13:02. Subjective Seen resting in bed, comfortable States abdominal pain continues to improve, mild today No nausea Denies fever chills No chest pain, shortness of breath, palpitations Denies other symptoms Objective Last 8 Hrs Date Time Temp Pulse Resp B/P (MAP) Pulse Ox O2 Delivery O2 Flow Rate FiO2 05/06/18 11:58 37.0 73 16 143/80 (101) 99 Room Air 05/06/18 08:35 100 Room Air 05/06/18 07:57 37.1 74 20 141/83 (102) 100 Room Air 05/06/18 07:05 Room Air Physical Exam: General-oriented 3, speaking sentences, no accessory muscle use Eyes- anicteric Neck- supple, no JVD Lungs- clear breath sounds bilaterally no rales wheezes Heart-normal, regular rhythm; no murmur, no gallop, no rub appreciated Abdomen- normal bowel sounds, soft, nontender Extremities- no pretibial edema, no calf tenderness; peripheral pulses intact Neuro- alert, oriented x 3; no gross focal neurologic deficits Skin- warm & dry Laboratory Results: Last 24 Hours Test 05/05/18 20:40 05/05/18 21:15 05/06/18 05:49 05/06/18 05:56 White Blood Count 7.39 K/uL 7.47 K/uL Red Blood Count 3.07 M/uL 3.32 M/uL Hemoglobin 9.1 g/dL 10.1 g/dL Hematocrit 27.8 % 30.0 % Mean Corpuscular Volume 90.6 fL 90.4 fL Mean Corpuscular Hemoglobin 29.6 pg 30.4 pg Mean Corpuscular Hemoglobin Concent 32.7 g/dl 33.7 g/dl Platelet Count 143 K/uL 140 K/uL Mean Platelet Volume 8.1 fL 8.7 fL Neutrophils (%) (Auto) 77.4 % 76.4 % Lymphocytes (%) (Auto) 11.1 % 11.4 % Monocytes (%) (Auto) 7.8 % 8.7 % Eosinophils (%) (Auto) 3.1 % 3.1 % Basophils (%) (Auto) 0.3 % 0.1 % Neutrophils # (Auto) 5.72 K/uL 5.71 K/uL Lymphocytes # (Auto) 0.82 K/uL 0.85 K/uL Monocytes # (Auto) 0.58 K/uL 0.65 K/uL Eosinophils # (Auto) 0.23 K/uL 0.23 K/uL Basophils # (Auto) 0.02 K/uL 0.01 K/uL RDW Standard Deviation 42.1 fL 42.1 fL RDW Coefficient of Variation 12.8 % 12.9 % Immature Granulocyte % (Auto) 0.3 % 0.3 % Immature Granulocyte # (Auto) 0.02 K/uL 0.02 K/uL Sodium Level 139 mmol/L 138 mmol/L Potassium Level 3.7 mmol/L 3.9 mmol/L Chloride Level 103 mmol/L 105 mmol/L Carbon Dioxide Level 30 mmol/L 25 mmol/L Anion Gap 6.0 mmol/L 8.0 mmol/L Blood Urea Nitrogen 48 mg/dl 49 mg/dl Creatinine 8.74 mg/dl 8.95 mg/dl Est Creatinine Clear Calc Drug Dose 13.1 ml/min 12.7 ml/min Estimated GFR () 7.6 7.4 Estimated GFR (Non- 6.6 6.4 BUN/Creatinine Ratio 5.5 5.5 Random Glucose 79 mg/dl 89 mg/dl Calcium Level 7.9 mg/dl 7.7 mg/dl Magnesium Level 2.8 mg/dl Total Bilirubin 0.3 mg/dl Direct Bilirubin 0.1 mg/dl Aspartate Amino Transf (AST/SGOT) 35 U/L Alanine Aminotransferase (ALT/SGPT) 41 U/L Alkaline Phosphatase 201 U/L Total Protein 5.6 gm/dl Albumin 1.7 gm/dl Lipase 98 U/L Urine Color YELLOW Urine Appearance CLEAR Urine pH 8.0 Urine Specific [place] 1.015 Urine Protein 2+ Urine Glucose (UA) TRACE Urine Ketones NEG Urine Occult Blood 1+ Urine Nitrite NEG Urine Bilirubin NEG Urine Urobilinogen NEG Urine Leukocyte Esterase TRACE Urine WBC (Auto) 1-5 /hpf Urine RBC (Auto) 0-4 /hpf Urine Hyaline Casts (Auto) 1-5 /lpf Urine Epithelial Cells (Auto) 10-20 /lpf Urine Bacteria (Auto) NEG Bedside Glucose 87 mg/dl Test 05/06/18 07:08 05/06/18 11:51 05/06/18 12:14 Prothrombin Time 10.8 SECONDS Prothromb Time International Ratio 1.0 Activated Partial Thromboplast Time 26.1 SECONDS Partial Thromboplastin Ratio 1.0 Bedside Glucose 127 mg/dl Date/Time Source Procedure Growth Status 05/06/18 11:51 Peritoneal Fluid Gram Stain Pending Ordered 05/06/18 11:51 Peritoneal Fluid Bacterial Culture Pending Ordered Assessment & Plan ASSESSMENT AND PLAN: This is a 47-year-old male who presents with abdominal pain and found to have possible pneumoperitoneum or colitis with proctitis. 1. Abdominal pain, possible infectious colitis versus peritonitis in the setting of portal dialysis Abdominal pain improving Continue Cipro and Flagyl, appreciate GI recommendations Continue vancomycin during PT, follow-up peritoneal fluid cultures, appreciate nephrology consultation 2. End-stage renal disease on peritoneal dialysis. nephrology consulted, patient on dialysis per nephrology 3. Diabetes on Levemir insulin sliding scale Blood glucose levels not at goal We will consult pharmacy glycemic control 4. History of coronary artery disease status post coronary artery bypass graft. Continue home medication of aspirin, Coreg, Lipitor, Imdur. Currently stable. 5. History of hypertension. Continue amlodipine and Imdur, Coreg, and Lasix. 6. Hyperlipidemia. Continue statin. 7. Anemia mostly anemia of chronic disease. Monitor the labs. 8. BPH The patient is on Flomax. 7. Hypothyroidism. Continue Synthroid. . Deep vein thrombosis prophylaxis. Heparin subcutaneous. DISPOSITION: Pending Management of possible colitis versus peritonitis in progress Anticipate discharge to home when medically stable Current Inpatient Medications: Current Inpatient Medications Medications (Trade) Dose Ordered Sig/Mitchell Route Start Time Stop Time Status Last Admin Dose Admin Heparin Sodium (Porcine) (Heparin Sq 5000 Unit/0.5ml) 5,000 unit Q8 SQ 05/06/18 08:00 06/05/18 07:59 Acetaminophen (Tylenol Tab) 650 mg Q4H PRN PO 05/06/18 00:30 06/05/18 00:29 Polyethylene (Miralax Powder Packet) 17 gm DAILY PRN PO 05/06/18 00:30 06/05/18 00:29 Ondansetron HCl (Zofran Inj) 4 mg Q6H PRN IV 05/06/18 00:30 8 00:29 05/06/18 07:11 4 MG Sodium Chloride 1,000 ml @ 50 mls/hr Q20H IV 05/06/18 00:30 06/05/18 00:29 05/06/18 02:08 50 MLS/HR Aspirin (Ecotrin Tab) 81 mg QAM PO 05/06/18 09:00 06/05/18 08:59 05/06/18 08:35 81 MG Atorvastatin Calcium (Lipitor Tab) 80 mg QPM PO 05/06/18 21:00 06/05/18 20:59 Carvedilol (Coreg Tab) 18.75 mg QAM PO 05/06/18 09:00 06/05/18 08:59 05/06/18 08:34 18.75 MG Furosemide (Lasix Tab) 80 mg QPM PO 05/06/18 21:00 06/05/18 20:59 Furosemide (Lasix Tab) 160 mg QAM PO 05/06/18 09:00 06/05/18 08:59 05/06/18 08:36 160 MG Insulin Detemir (Levemir Flexpen/ FlexTouch) 10 units HS SC 05/06/18 21:00 06/05/18 20:59 Isosorbide Mononitrate (Imdur Ext Rel Tab) 30 mg QAM PO 05/06/18 09:00 06/05/18 08:59 05/06/18 08:34 30 MG Levothyroxine Sodium (Synthroid Tab) 25 mcg DAILYBB PO 05/06/18 06:00 06/05/18 06:59 05/06/18 05:57 25 MCG Tamsulosin HCl (Flomax Cap) 0.4 mg QPM PO 05/06/18 21:00 06/05/18 20:59 Amlodipine Besylate (Norvasc Tab) 10 mg QAM PO 05/06/18 09:00 06/05/18 08:59 05/06/18 08:35 10 MG Diphenhydramine HCl (Benadryl Cap) 25 mg DAILY PRN PO 05/06/18 00:30 06/05/18 00:29 Sevelamer HCl (Renagel Tab) 1,600 mg UD PRN PO 05/06/18 00:30 06/05/18 00:29 Sevelamer HCl (Renagel Tab) 3,200 mg TIDM PO 05/06/18 08:00 06/05/18 07:59 Morphine Sulfate (MoRPHine SULFATE INJ) 3 mg Q4 PRN IV 05/06/18 00:45 05/20/18 00:44 Ciprofloxacin/ Dextrose 400 mg/ Prmx 200 ml @ 100 mls/hr Q24H IV 05/06/18 03:00 05/16/18 02:59 05/06/18 02:26 100 MLS/HR Metronidazole 500 mg/Prmx 100 ml @ 100 mls/hr Q8H IV 05/06/18 02:00 05/16/18 01:59 05/06/18 11:20 100 MLS/HR Glucose (Glucose 40% Gel) 15-30 GRAMS 15 GRAMS... UD PRN PO 05/06/18 01:30 06/05/18 01:29 Glucose (Glucose Chew Tab) 4-8 Tablets 4 Tabl... UD PRN PO 05/06/18 01:30 06/05/18 01:29 Dextrose (Dextrose 50% 50ML Syringe) 25-50ML 25ML FOR ... UD PRN IV 05/06/18 01:30 06/05/18 01:29 Glucagon (Glucagon Inj) 1 mg UD PRN IM 05/06/18 01:30 06/05/18 01:29 Carbohydrates (Carbohydrates For Hypoglycemia) 15-30 GRAMS 15 grams if BSG 54-69... UD PRN PO 05/06/18 01:30 06/05/18 01:29 Insulin Aspart (novoLOG ASPART) SLIDING SCALE G... Q6 SC 05/06/18 06:00 06/05/18 05:59 Ciprofloxacin (Consult) 1 ea UD PRN N/A 05/06/18 02:15 06/05/18 02:14
[2018-05-06] MEDS ORDERED: NURSING VERBAL MED ORDER ONE (14:15)
--- NOTE | 2018-05-06 16:51 | Nephrology Consultation ---
Nephrology Consultation Date of Consultation: May 06, 2018. Attending Physician: Dr Campbell Requesting Physician: Dr Howell Reason for Consultation: ESRD on PD History of Present Illness 47 year old male w/ ESRD on PD who presented yesterday to ER with jagging L sided abdominal pain, present for about 12 days. He had been seen 10 days back in ER w/ similar sx and CT showed proctitis, managed by PCP after d/c. Other PMH includes CAD, DM on insulin, hypothyroid. Surgery evaluated the pt mostly d /t concerns about pneumoperitoneum on imaging, attributed to PD catheter/ use. He is receiving empiric IV antibiotics-flagyl/cipro; also had a dose of zosyn in ER. We are asked to consult regarding dialysis and the abdominal pain. Pt denies issues w/ his PD at home: states that he does 5 cycles nightly w/ 2 x 6L bags alternating red/green and no LBF. He does do a manual exchange about 3 hrs before going on cycler with 2L green. GI evaluated the pt and is concerned for possible colitis given CT findings, possibly ischemic. Past Medical/Surgical History PAST MEDICAL HISTORY: Type 2 diabetes; end-stage renal disease, on peritoneal dialysis; lymphoma with splenomegaly and thrombocytopenia; hypothyroidism; cardiomyopathy; hypertension, obeisty PAST SURGICAL HISTORY: CABG x5, multiple eye surgeries, fistula placement, PD catheter placement. Family History Cancer Diabetes mellitus Heart disease Hypertension Kidney disease Kidney stones Social History Smoking Status: Never Smoker Alcohol Use: none Drug Use: none Marital Status: single Housing Status: lives with family Occupation Status: employed Allergies Coded Allergies: Penicillins (Verified Allergy, Severe, ANAPHYLAXIS, 03/30/18) Medications Current Inpatient Medications Medications (Trade) Dose Ordered Sig/Mitchell Route Start Time Stop Time Status Last Admin Dose Admin Heparin Sodium (Porcine) (Heparin Sq 5000 Unit/0.5ml) 5,000 unit Q8 SQ 05/06/18 08:00 06/05/18 07:59 Acetaminophen (Tylenol Tab) 650 mg Q4H PRN PO 05/06/18 00:30 06/05/18 00:29 Polyethylene (Miralax Powder Packet) 17 gm DAILY PRN PO 05/06/18 00:30 06/05/18 00:29 Ondansetron HCl (Zofran Inj) 4 mg Q6H PRN IV 05/06/18 00:30 06/05/18 00:29 05/06/18 07:11 4 MG Sodium Chloride 1,000 ml @ 50 mls/hr Q20H IV 05/06/18 00:30 06/05/18 00:29 05/06/18 02:08 50 MLS/HR Aspirin (Ecotrin Tab) 81 mg QAM PO 05/06/18 09:00 06/05/18 08:59 05/06/18 08:35 81 MG Atorvastatin Calcium (Lipitor Tab) 80 mg QPM PO 05/06/18 21:00 06/05/18 20:59 Carvedilol (Coreg Tab) 18.75 mg QAM PO 05/06/18 09:00 06/05/18 08:59 05/06/18 08:34 18.75 MG Furosemide (Lasix Tab) 80 mg QPM PO 05/06/18 21:00 06/05/18 20:59 Furosemide (Lasix Tab) 160 mg QAM PO 05/06/18 09:00 06/05/18 08:59 05/06/18 08:36 160 MG Insulin Detemir (Levemir Flexpen/ FlexTouch) 10 units HS SC 05/06/18 21:00 06/05/18 20:59 Isosorbide Mononitrate (Imdur Ext Rel Tab) 30 mg QAM PO 05/06/18 09:00 06/05/18 08:59 05/06/18 08:34 30 MG Levothyroxine Sodium (Synthroid Tab) 25 mcg DAILYBB PO 05/06/18 06:00 06/05/18 06:59 05/06/18 05:57 25 MCG Tamsulosin HCl (Flomax Cap) 0.4 mg QPM PO 05/06/18 21:00 06/05/18 20:59 Amlodipine Besylate (Norvasc Tab) 10 mg QAM PO 05/06/18 09:00 06/05/18 08:59 05/06/18 08:35 10 MG Diphenhydramine HCl (Benadryl Cap) 25 mg DAILY PRN PO 05/06/18 00:30 06/05/18 00:29 Sevelamer HCl (Renagel Tab) 1,600 mg UD PRN PO 05/06/18 00:30 06/05/18 00:29 Sevelamer HCl (Renagel Tab) 3,200 mg TIDM PO 05/06/18 08:00 06/05/18 07:59 Morphine Sulfate (MoRPHine SULFATE INJ) 3 mg Q4 PRN IV 05/06/18 00:45 05/20/18 00:44 Ciprofloxacin/ Dextrose 400 mg/ Prmx 200 ml @ 100 mls/hr Q24H IV 05/06/18 03:00 05/16/18 02:59 05/06/18 02:26 100 MLS/HR Metronidazole 500 mg/Prmx 100 ml @ 100 mls/hr Q8H IV 05/06/18 02:00 05/16/18 01:59 05/06/18 02:26 100 MLS/HR Glucose (Glucose 40% Gel) 15-30 GRAMS 15 GRAMS... UD PRN PO 05/06/18 01:30 06/05/18 01:29 Glucose (Glucose Chew Tab) 4-8 Tablets 4 Tabl... UD PRN PO 05/06/18 01:30 06/05/18 01:29 Dextrose (Dextrose 50% 50ML Syringe) 25-50ML 25ML FOR ... UD PRN IV 05/06/18 01:30 06/05/18 01:29 Glucagon (Glucagon Inj) 1 mg UD PRN IM 05/06/18 01:30 06/05/18 01:29 Carbohydrates (Carbohydrates For Hypoglycemia) 15-30 GRAMS 15 grams if BSG 54-69... UD PRN PO 05/06/18 01:30 06/05/18 01:29 Insulin Aspart (novoLOG ASPART) SLIDING SCALE G... Q6 SC 05/06/18 06:00 06/05/18 05:59 Ciprofloxacin (Consult) 1 ea UD PRN N/A 05/06/18 02:15 06/05/18 02:14 Home Meds and Scripts Medications Dose Route/Sig Max Daily Dose Days Date Category Dose Instructions Levemir Flextouch (Insulin Detemir) 100 Unit/Ml Inj 10 Units SC HS 04/25/18 Reported Amlodipine Besylate 10 Mg Tab 10 Mg PO QAM 04/25/18 Reported Tamsulosin HCl 0.4 Mg Cap 0.4 Mg PO QPM 04/25/18 Reported Novolog (Insulin Aspart) 100 Units/Ml Inj 1 Dose SC AC 04/25/18 Reported COVERAGE DIRECTED BY SLIDING SCALE Renvela (Sevelamer Carbonate) 800 Mg Tab 1,600 Mg PO UD 04/25/18 Reported TAKE 2 TABLETS WITH SNACKS Lasix (Furosemide) 80 Mg Tab 80 Mg PO QPM 03/30/18 Reported Imdur Ext Rel (Isosorbide Mononitrate) 30 Mg Tabcr 30 Mg PO QAM 11/09/17 Reported Lasix (Furosemide) 80 Mg Tab 160 Mg PO QAM 02/03/17 Reported Carvedilol 12.5 Mg Tab 18.75 Mg PO QAM 12/23/16 Reported TAKE 1 1/2 TABLETS A DAY Renvela (Sevelamer Carbonate) 800 Mg Tab 3,200 Mg PO TIDM 08/23/16 Reported TAKE 4 TABLETS WIH MEALS Tylenol (Acetaminophen) 500 Mg Tab 500 Mg PO Q4H PRN 04/23/16 Reported Benadryl Allergy (Diphenhydramine Hcl) 25 Mg Tab 25 Mg PO UD PRN 04/23/16 Reported TAKE PER PACKAGE DIRECTIONS Levothyroxine Sodium 25 Mcg Tab 25 Mcg PO QAM 11/02/15 Reported Aspirin Ec (Aspirin) 81 Mg Tab 81 Mg PO QAM 01/12/14 Reported Lipitor (Atorvastatin Calcium) 80 Mg Tab 80 Mg PO QPM 01/12/14 Reported Review of Systems Constitutional: No fever, No chills, No weakness, No fatigue Eyes: No worsening of vision ENT: No hearing loss Respiratory: No cough, No shortness of breath Cardiac: No chest pain, No edema Abdomen: + see HPI, + pain, + vomiting (emesis x 1 on 05/02), + constipation, No nausea, No diarrhea Musculoskeletal: No joint pain, No muscle pain Male : + problem reported (no change in chronic voiding habits; voids >500 mL /day) Neuro: No memory loss, No weakness, No balance problems Psych: No depression symptoms, No anxiety Heme: No abnormal bleeding/bruising Endo: + fatigue Skin: No rash, No itch, No new/changing skin lesions Physical Exam Date Time Temp Pulse Resp B/P (MAP) Pulse Ox O2 Delivery O2 Flow Rate FiO2 05/06/18 08:35 100 Room Air 05/06/18 07:57 37.1 74 20 141/83 (102) 100 Room Air 05/06/18 02:10 Room Air 05/06/18 01:40 36.3 79 18 178/92 100 Room Air 05/06/18 01:19 77 20 181/98 97 Room Air 05/05/18 22:24 84 20 179/85 97 Room Air 05/05/18 21:17 84 18 158/81 98 Room Air 05/05/18 20:44 37.0 85 16 148/74 100 Room Air 05/05/18 20:22 81 General Appearance: WD/WN, no apparent distress, + obese, + pertinent finding ( ambulatory w/o asst) Eyes: EOMI ENT: hearing grossly normal Neck: supple Respiratory/Chest: lungs clear, no respiratory distress Cardiovascular: regular rate, rhythm Abdomen: normal bowel sounds, soft, + tenderness (LLQ w/o rebound/guarding), + pertinent finding (PD cath w/ pristine exit site) Extremities: + swelling (trace distal BLE) Neurologic/Psych: no motor/sensory deficits, alert, normal mood/affect, oriented x 3 Skin: no jaundice, warm/dry, no rash Diagnostics Last 24 Hours Test 05/05/18 20:40 05/05/18 21:15 05/06/18 05:49 05/06/18 05:56 White Blood Count 7.39 K/uL 7.47 K/uL Red Blood Count 3.07 M/uL 3.32 M/uL Hemoglobin 9.1 g/dL 10.1 g/dL Hematocrit 27.8 % 30.0 % Mean Corpuscular Volume 90.6 fL 90.4 fL Mean Corpuscular Hemoglobin 29.6 pg 30.4 pg Mean Corpuscular Hemoglobin Concent 32.7 g/dl 33.7 g/dl Platelet Count 143 K/uL 140 K/uL Mean Platelet Volume 8.1 fL 8.7 fL Neutrophils (%) (Auto) 77.4 % 76.4 % Lymphocytes (%) (Auto) 11.1 % 11.4 % Monocytes (%) (Auto) 7.8 % 8.7 % Eosinophils (%) (Auto) 3.1 % 3.1 % Basophils (%) (Auto) 0.3 % 0.1 % Neutrophils # (Auto) 5.72 K/uL 5.71 K/uL Lymphocytes # (Auto) 0.82 K/uL 0.85 K/uL Monocytes # (Auto) 0.58 K/uL 0.65 K/uL Eosinophils # (Auto) 0.23 K/uL 0.23 K/uL Basophils # (Auto) 0.02 K/uL 0.01 K/uL RDW Standard Deviation 42.1 fL 42.1 fL RDW Coefficient of Variation 12.8 % 12.9 % Immature Granulocyte % (Auto) 0.3 % 0.3 % Immature Granulocyte # (Auto) 0.02 K/uL 0.02 K/uL Sodium Level 139 mmol/L 138 mmol/L Potassium Level 3.7 mmol/L 3.9 mmol/L Chloride Level 103 mmol/L 105 mmol/L Carbon Dioxide Level 30 mmol/L 25 mmol/L Anion Gap 6.0 mmol/L 8.0 mmol/L Blood Urea Nitrogen 48 mg/dl 49 mg/dl Creatinine 8.74 mg/dl 8.95 mg/dl Est Creatinine Clear Calc Drug Dose 13.1 ml/min 12.7 ml/min Estimated GFR () 7.6 7.4 Estimated GFR (Non- 6.6 6.4 BUN/Creatinine Ratio 5.5 5.5 Random Glucose 79 mg/dl 89 mg/dl Calcium Level 7.9 mg/dl 7.7 mg/dl Magnesium Level 2.8 mg/dl Total Bilirubin 0.3 mg/dl Direct Bilirubin 0.1 mg/dl Aspartate Amino Transf (AST/SGOT) 35 U/L Alanine Aminotransferase (ALT/SGPT) 41 U/L Alkaline Phosphatase 201 U/L Total Protein 5.6 gm/dl Albumin 1.7 gm/dl Lipase 98 U/L Urine Color YELLOW Urine Appearance CLEAR Urine pH 8.0 Urine Specific [place] 1.015 Urine Protein 2+ Urine Glucose (UA) TRACE Urine Ketones NEG Urine Occult Blood 1+ Urine Nitrite NEG Urine Bilirubin NEG Urine Urobilinogen NEG Urine Leukocyte Esterase TRACE Urine WBC (Auto) 1-5 /hpf Urine RBC (Auto) 0-4 /hpf Urine Hyaline Casts (Auto) 1-5 /lpf Urine Epithelial Cells (Auto) 10-20 /lpf Urine Bacteria (Auto) NEG Bedside Glucose 87 mg/dl Test 05/06/18 07:08 Prothrombin Time 10.8 SECONDS Prothromb Time International Ratio 1.0 Activated Partial Thromboplast Time 26.1 SECONDS Partial Thromboplastin Ratio 1.0 Diagnostic Radiology: ct abd/pelvis 1. Peritoneal dialysis catheter redemonstrated with small volume of abdominal pelvic ascites likely related to normally functioning catheter. 2. Moderate amount of pneumoperitoneum is suspicious for perforated viscus. Correlate clinically to exclude recent abdominal intervention which could alternatively be a cause for the pneumoperitoneum. 3. Mild wall thickening of the colon extends from the distal transverse colon through the rectum suggesting partial distention or acute colitis with proctitis. The degree of rectal wall thickening has mildly improved from comparison study 04/25/2018. 4. Cholelithiasis without CT evidence of acute cholecystitis. 5. Splenomegaly. cxr > no acute cp process Assessment & Plan 56 y/o M w/ ESRD on PD and w/ hx of HTN, DM, CAD admitted for evaluation of ongoing L sided abdominal pain. Abdominal pain >> his PD fluid meets criteria for PD peritonitis, also with GI following for possible colitis After I evaluated pt this am, he developed mild diarrhea >for C diff and stool cx; GI recommends outpt colonoscopy -in addition to cipro/flagyl per GI recs, will give 1.5 gm vanco intraperitoneal this evening -check vanco level on 05/08 depending on clinical course/ culture results to determine if/when to redose -no further gram negative pd peritonitis coverage needed provided he remains on cipro; can give this po or IP if indicated -surgery also following ESRD on PD his chemistries are acceptable; consider the pneumoperitoneum in this case to be due to/ c/w PD -continue PD this evening per outpt routine after long dwell w/ abtx HTN/ volume status -some elevated bp overnight but improved this am: cont out pt meds; will adjust pd rx as needed for better bp control -cont CCB, BB, diuretics anemia of esrd -acceptable hgb NAVID -cont binders when taking po appreciate consult; will follow with you. care coordinated w/ dr campbell.
[2018-05-06] MEDS ORDERED: PERITONEAL 2.5% IP ONE (17:00)
[2018-05-06] MEDS ORDERED: VANCOMYCIN IP ONE (17:00)
[2018-05-06] MEDS ORDERED: DIALYSIS IP ONE (17:00)
[2018-05-06] MEDS ORDERED: INSULIN DETEMIR FLEXPEN/FLEX TOUCH 100 UNITS/ML 3ML SC SCH (21:00)
[2018-05-06] MEDS: TAMSULOSIN HCL 0.4 MG CAP PO SCH (21:04)
[2018-05-06] MEDS: ATORVASTATIN 40 MG TAB PO SCH (21:04)
[2018-05-07] VITALS (9 sets, daily range): BP systolic 137–161; BP diastolic 76–90; PULSE 70–84; TEMP 36.6–36.9; O2SAT 98–99
[2018-05-07] MEDS: METRONIDAZOLE / NSS 500 MG in PREMIXED NSS 100 ML IV SCH ×3 (02:24→18:00)
[2018-05-07] MEDS: CIPROFLOXACIN / D5W 400 MG in PREMIXED IN D5W 200 ML IV SCH (03:45)
[2018-05-07] MEDS: LEVOTHYROXINE 25 MCG TAB PO SCH (05:53)
[2018-05-07] MEDS: HEPARIN SOD 5000 UNIT/0.5 ML CARP SQ SCH ×3 (05:54→20:53)
--- NOTE | 2018-05-07 07:01 | Surgery Progress Note ---
Surgery Progress Note Date of Service May 07, 2018. Subjective + feeling well, + bowel movement (Reports loose bm), + flatus, + pain controlled , + diet (Tolerating [place]), No complaints, No nausea, No vomiting Objective Vital Signs: Date Time Temp Pulse Resp B/P (MAP) Pulse Ox O2 Delivery O2 Flow Rate FiO2 05/07/18 00:25 36.8 70 155/78 (103) 05/07/18 00:15 Room Air 05/07/18 00:15 36.8 70 155/78 (103) 05/06/18 23:30 157/97 (117) 05/06/18 23:20 36.6 70 16 191/110 (137) 97 Room Air 05/06/18 15:59 36.8 65 18 133/79 (97) 97 Room Air 05/06/18 15:10 Room Air 05/06/18 11:58 37.0 73 16 143/80 (101) 99 Room Air 05/06/18 08:35 100 Room Air 05/06/18 07:57 37.1 74 20 141/83 (102) 100 Room Air 05/06/18 07:05 Room Air General Appearance: no apparent distress, + obese Head: normocephalic, atraumatic Respiratory/Chest: no respiratory distress Abdomen: non tender, non distended, soft, no organomegaly Laboratory Results: Results Past 24 Hours Test 05/06/18 07:08 05/06/18 11:05 05/06/18 12:14 05/06/18 16:56 Range/Units Prothrombin Time 10.8 9.0-12.0 SECONDS Prothromb Time International Ratio 1.0 0.9-1.1 Activated Partial Thromboplast Time 26.1 21.0-31.0 SECONDS Partial Thromboplastin Ratio 1.0 Peritoneal Fluid Color PALE YELLOW Peritoneal Fluid Appearance HAZY Peritoneal Fluid WBC 364 0-300 /uL Peritoneal Fluid RBC < 3000 /uL Peritoneal Fld Mononuclear WBCs (%) 49.6 % Peritoneal Fld Polynuclear WBCs (%) 50.4 % Bedside Glucose 127 161 70-99 mg/dl Test 05/06/18 18:42 05/06/18 20:49 05/07/18 06:14 Range/Units Bedside Glucose 220 190 70-99 mg/dl Microbiology Results 05/06/18 Gram Stain - Final, Resulted 05/06/18 Bacterial Culture, Resulted Pending Assessment & Plan colitis Abdomen soft, non-distended, non-tender. no N/V. Tolerating full liquids. afebrile. Vitals stable. BSG elevated last night - patient reported chills - corrected/resolved. Peritoneal culture pending. Pneumoperitoneum likely due to catheter, no acute abdominal process at this time. Appreciate GI recs - continue IV cipro/flagyl, f/u colonoscopy in 4-6 weeks. Will continue to follow.
[2018-05-07] MEDS: SEVELAMER HYDROCH 800 MG TAB PO SCH ×3 (08:18→17:45)
[2018-05-07] MEDS: CARVEDILOL 6.25 MG TAB PO SCH (08:19)
[2018-05-07] MEDS: ASPIRIN 81 MG ECTAB PO SCH (08:20)
[2018-05-07] MEDS: ISOSORBIDE MONONITRATE 30 MG TABCR PO SCH (08:21)
[2018-05-07] MEDS: FUROSEMIDE 80 MG TAB PO SCH ×2 (08:21→20:51)
[2018-05-07] MEDS: AMLODIPINE BESYLATE 5 MG TAB PO SCH (08:22)
--- NOTE | 2018-05-07 09:06 | Gastroenterology Progress Note ---
Progress Note Date of Service: May 07, 2018 Subjective Pt evaluation today including: conversation w/ patient, physical exam, chart review, lab review, review of inpatient medication list Pt reports abd pain "non existent". He feels well, no n/v, no BMs overnight. He is tolerating [place] diet well. Review of Systems Constitutional: No fever, No chills Respiratory: No cough, No shortness of breath Cardiac: No chest pain Abdomen: No pain, No nausea, No vomiting, No diarrhea Medications Current Inpatient Medications Medications (Trade) Dose Ordered Sig/Mitchell Route Start Time Stop Time Status Last Admin Dose Admin Heparin Sodium (Porcine) (Heparin Sq 5000 Unit/0.5ml) 5,000 unit Q8 SQ 05/06/18 08:00 06/05/18 07:59 Acetaminophen (Tylenol Tab) 650 mg Q4H PRN PO 05/06/18 00:30 06/05/18 00:29 05/07/18 00:36 650 MG Polyethylene (Miralax Powder Packet) 17 gm DAILY PRN PO 05/06/18 00:30 06/05/18 00:29 Ondansetron HCl (Zofran Inj) 4 mg Q6H PRN IV 05/06/18 00:30 06/05/18 00:29 05/06/18 07:11 4 MG Sodium Chloride 1,000 ml @ 50 mls/hr Q20H IV 05/06/18 00:30 06/05/18 00:29 05/06/18 21:08 50 MLS/HR Aspirin (Ecotrin Tab) 81 mg QAM PO 05/06/18 09:00 06/05/18 08:59 05/07/18 08:20 81 MG Atorvastatin Calcium (Lipitor Tab) 80 mg QPM PO 05/06/18 21:00 06/05/18 20:59 05/06/18 21:04 80 MG Carvedilol (Coreg Tab) 18.75 mg QAM PO 05/06/18 09:00 06/05/18 08:59 05/07/18 08:19 18.75 MG Furosemide (Lasix Tab) 80 mg QPM PO 05/06/18 21:00 06/05/18 20:59 05/06/18 21:03 80 MG Furosemide (Lasix Tab) 160 mg QAM PO 7/25/18 09:00 06/05/18 08:59 05/07/18 08:21 160 MG Insulin Detemir (Levemir Flexpen/ FlexTouch) 10 units HS SC 05/06/18 21:00 06/05/18 20:59 05/06/18 21:07 10 UNITS Isosorbide Mononitrate (Imdur Ext Rel Tab) 30 mg QAM PO 05/06/18 09:00 06/05/18 08:59 05/07/18 08:21 30 MG Levothyroxine Sodium (Synthroid Tab) 25 mcg DAILYBB PO 05/06/18 06:00 06/05/18 06:59 05/07/18 05:53 25 MCG Tamsulosin HCl (Flomax Cap) 0.4 mg QPM PO 05/06/18 21:00 06/05/18 20:59 05/06/18 21:04 0.4 MG Amlodipine Besylate (Norvasc Tab) 10 mg QAM PO 05/06/18 09:00 06/05/18 08:59 05/07/18 08:22 10 MG Diphenhydramine HCl (Benadryl Cap) 25 mg DAILY PRN PO 05/06/18 00:30 06/05/18 00:29 Sevelamer HCl (Renagel Tab) 1,600 mg UD PRN PO 05/06/18 00:30 06/05/18 00:29 Sevelamer HCl (Renagel Tab) 3,200 mg TIDM PO 05/06/18 08:00 06/05/18 07:59 05/07/18 08:18 3,200 MG Morphine Sulfate (MoRPHine SULFATE INJ) 3 mg Q4 PRN IV 05/06/18 00:45 05/20/18 00:44 Ciprofloxacin/ Dextrose 400 mg/ Prmx 200 ml @ 100 mls/hr Q24H IV 05/06/18 03:00 05/16/18 02:59 05/07/18 03:45 100 MLS/HR Metronidazole 500 mg/Prmx 100 ml @ 100 mls/hr Q8H IV 05/06/18 02:00 05/16/18 01:59 05/07/18 02:24 100 MLS/HR Glucose (Glucose 40% Gel) 15-30 GRAMS 15 GRAMS... UD PRN PO 05/06/18 01:30 06/05/18 01:29 Glucose (Glucose Chew Tab) 4-8 Tablets 4 Tabl... UD PRN PO 05/06/18 01:30 06/05/18 01:29 Dextrose (Dextrose 50% 50ML Syringe) 25-50ML 25ML FOR ... UD PRN IV 05/06/18 01:30 06/05/18 01:29 Glucagon (Glucagon Inj) 1 mg UD PRN IM 05/06/18 01:30 06/05/18 01:29 Carbohydrates (Carbohydrates For Hypoglycemia) 15-30 GRAMS 15 grams if BSG 54-69... UD PRN PO 05/06/18 01:30 06/05/18 01:29 Ciprofloxacin (Consult) 1 ea UD PRN N/A 05/06/18 02:15 06/05/18 02:14 Insulin Aspart (novoLOG ASPART) SLIDING SCALE G... ACHS SC 05/06/18 17:15 06/05/18 05:59 05/06/18 21:07 2 UNITS Objective Vital Signs Date Time Temp Pulse Resp B/P (MAP) Pulse Ox O2 Delivery O2 Flow Rate FiO2 05/07/18 07:35 98 Room Air 05/07/18 07:33 36.9 84 16 161/88 (112) 98 Room Air 05/07/18 00:25 36.8 70 155/78 (103) 05/07/18 00:15 Room Air 05/07/18 00:15 36.8 70 155/78 (103) 05/06/18 23:30 157/97 (117) 05/06/18 23:20 36.6 70 16 191/110 (137) 97 Room Air 05/06/18 15:59 36.8 65 18 133/79 (97) 97 Room Air 05/06/18 15:10 Room Air 05/06/18 11:58 37.0 73 16 143/80 (101) 99 Room Air Physical Exam General Appearance: WD/WN, no apparent distress, + obese Eyes: normal inspection, PERRL, EOMI Neck: supple, no JVD, trachea midline Respiratory/Chest: normal breath sounds, no respiratory distress, no accessory muscle use Cardiovascular: regular rate, rhythm, no gallop, no murmur Abdomen: normal bowel sounds, non tender, + distended (pt has indwelling dialysate fluid ) Extremities: normal inspection, no pedal edema, no calf tenderness Neurologic/Psych: alert, normal mood/affect, oriented x 3 Skin: normal color, no jaundice, no rash Laboratory Results Last 24 Hours Test 05/06/18 11:05 05/06/18 12:14 05/06/18 16:56 05/06/18 18:42 Peritoneal Fluid Color PALE YELLOW Peritoneal Fluid Appearance HAZY Peritoneal Fluid WBC 364 /uL Peritoneal Fluid RBC < 3000 /uL Peritoneal Fld Mononuclear WBCs (%) 49.6 % Peritoneal Fld Polynuclear WBCs (%) 50.4 % Bedside Glucose 127 mg/dl 161 mg/dl 220 mg/dl Test 05/06/18 20:49 05/07/18 06:14 05/07/18 07:56 Bedside Glucose 190 mg/dl 258 mg/dl Hepatitis B Surface Antigen NEG Hepatitis B Surface Antibody NEG Assessment and Plan Patient is a 47 year old male w LLQ abd pain, CT abd/pelvis w/o contrast w signs of colon wall thickening from distal transverse colon to rectum, pattern may be suggestive of ischemic colitis. He recently was treated for Cdiff infection. Bowels currently loose w/o signs of rectal bleeding. ? pneumoperitoneum - seen and evaluated by Surgery team, suspected CT scan finding related to peritoneal dialysis catheter. He doesn't have any peritoneal signs. He is feeling well, no more abd pain, n/v, or loose stools. Tolerated [place] diet well. Plan - Check Cdiff and Stool cx if any more diarrhea - Cipro/Flagyl IV antibiotics; may transition to PO form at time of DC to completed 10 days course. - Advanced to regular, diabetic, renal, AHA diet. - Recommend colonoscopy evaluation in 4-6 weeks' time; we will contact him to schedule. - Surgery following, appreciate recs. - Will sign off; call if new questions/concerns arise. ATTESTATION: I have performed a history and physical examination of this patient and reviewed the electronic record. Specifically on physical examination the abdomen is soft and nontender. I have discussed the case with IAM Aguirre. The above note reflects my findings, conclusions, and recommendations. Hermilo Aquino MD
[2018-05-07] MEDS: INSULIN ASPART 100 UNITS/ML 3 ML PEN SC SCH ×4 (09:30→21:23)
--- NOTE | 2018-05-07 14:47 | PROGRESS NOTE ---
DATE: 05/07/2018 PERITONEAL DIALYSIS Patient was seen during peritoneal dialysis. He is tolerating it very well. Denies any nausea, vomiting, abdominal pain at this time. He appears very comfortable. PHYSICAL EXAMINATION: VITAL SIGNS: Stable. Blood pressure 137/81, 98% on room air, pulse rate 75, temperature 36.8. HEENT: Mucous membrane is moist. NECK: Supple. No jugular venous distention. CHEST: Bilateral clear to auscultation. CARDIOVASCULAR: S1 and S2. Distant heart sounds. ABDOMEN: Soft, nontender, obese. EXTREMITIES: Show trace edema. NEUROLOGIC: No focal deficits. Alert, oriented x3. SKIN: No jaundice. Warm, dry and no rash. LABORATORY TESTS: Reviewed. This morning labs show sodium 138, potassium 3.9, BUN 49, creatinine 8.95, calcium 7.7, magnesium 2.8, albumin 1.7, hemoglobin 10.1, WBC count 7.47. Abdominal and pelvis CT scan shows peritoneal dialysis catheter as well as pneumoperitoneum, which is to be expected given that patient has PD catheter. No other findings noted. ASSESSMENT AND PLAN: A 47-year-old male with end-stage renal disease on peritoneal dialysis and with history of hypertension, diabetes, coronary artery disease, admitted for evaluation of ongoing left-sided abdominal pain. It is hard to interpret his peritoneal dialysis fluid analysis given that he possibly has colitis/proctitis that would be not to cause some fluid in the peritoneum. He will have his dialysis again later today overnight with mixed 2.5 and 4.25% exchange for about 15 hours. MTDD
[2018-05-07] MEDS: SODIUM CHLORIDE 0.9% 1000ML 1,000 ML IV SCH (15:47)
[2018-05-07] MEDS ORDERED: CONSULT PHARMACY STA (16:43)
[2018-05-07] MEDS ORDERED: PHARMACY GLYCEMIC MGMT CONSULT PRN (16:52)
[2018-05-07] MEDS: ONDANSETRON INJ 2 MG/ML 2 ML VIAL IV PRN (18:00)
[2018-05-07] MEDS ORDERED: PROMETHAZINE HCL INJ 12.5 MG in SODIUM CHLORIDE 0.9% 50ML 50 ML IV PRN (19:45)
[2018-05-07] MEDS: TAMSULOSIN HCL 0.4 MG CAP PO SCH (20:51)
[2018-05-07] MEDS: ATORVASTATIN 40 MG TAB PO SCH (20:52)
[2018-05-07] MEDS ORDERED: INSULIN DETEMIR FLEXPEN/FLEX TOUCH 100 UNITS/ML 3ML SC SCH (21:30)
[2018-05-08] MEDS: METRONIDAZOLE / NSS 500 MG in PREMIXED NSS 100 ML IV SCH ×3 (02:39→18:00)
[2018-05-08] MEDS: CIPROFLOXACIN / D5W 400 MG in PREMIXED IN D5W 200 ML IV SCH (03:33)
[2018-05-08] MEDS: LEVOTHYROXINE 25 MCG TAB PO SCH (05:49)
[2018-05-08] MEDS: HEPARIN SOD 5000 UNIT/0.5 ML CARP SQ SCH ×2 (05:49→12:58)
[2018-05-08 08:01] VITALS: BP 142/68; PULSE 84; TEMP 36.5; O2SAT 98
[2018-05-08 08:12] VITALS: O2SAT 98
[2018-05-08] MEDS ORDERED: INSULIN DETEMIR FLEXPEN/FLEX TOUCH 100 UNITS/ML 3ML SC ONE (09:15)
[2018-05-08] MEDS: AMLODIPINE BESYLATE 5 MG TAB PO SCH (09:19)
[2018-05-08] MEDS: ASPIRIN 81 MG ECTAB PO SCH (09:19)
[2018-05-08] MEDS: CARVEDILOL 6.25 MG TAB PO SCH (09:20)
[2018-05-08] MEDS: ISOSORBIDE MONONITRATE 30 MG TABCR PO SCH (09:20)
[2018-05-08] MEDS: SEVELAMER HYDROCH 800 MG TAB PO SCH ×3 (09:21→17:55)
[2018-05-08] MEDS: INSULIN ASPART 100 UNITS/ML 3 ML PEN SC SCH ×3 (09:25→17:58)
[2018-05-08] MEDS: FUROSEMIDE 80 MG TAB PO SCH (09:27)
[2018-05-08 11:14] VITALS: BP_SYST 155; BP_SYST 164; BP_DIAS 78; BP_DIAS 92; PULSE 79; TEMP 36.7
--- NOTE | 2018-05-08 11:36 | Pharmacy Progress Note ---
Glycemic Control Intl Consult Date of Service May 08, 2018. Scope Glycemic Pharmacist consulted by Dr Howell on 05/07/18 for glycemic control and to write orders per [facility] inpatient glycemic control protocol Objective Weight (Kilograms): 122.200 Accuchecks BSG (last 24hrs): Test 05/07/18 11:58 05/07/18 17:12 05/07/18 20:41 05/08/18 08:07 Bedside Glucose 233 mg/dl (70-99) 98 mg/dl (70-99) 209 mg/dl (70-99) 230 mg/dl (70-99) Recent Pertinent Medications Outpatient Anti-diabetic Regimen: * Levemir 10 units HS, Novolog AC SSI * A1c = 6.5 % 03/30/18 unreliable due to PD Risk Factors for Insulin Resistance: * Infection: r/o infectious colitis Assessment & Plan ASSESSMENT: * Mr. Tapia is a 47yo M being worked up for infectious colitis, on IV Cipro/ Flagyl. BSGs have been in the 200s over the previous 24 hrs: 147-420-69-233. Likely due to stress if infection and underdosing of his levemir. PLAN FOR INPATIENT GLYCEMIC CONTROL: * Basal insulin with Levemir: given 15units evening of 05/08/18 (increased 5units from his home dose). Gave additional 5 units today due to AM fasting of 230. Will set levemir scale for HS: 10units (BSGs <140mg/dL), 15units (140- 200mg/dL), 20units (>200mg/dL). * Correctional Insulin with NOVOLOG per scale ACHS - tightened * Goal Range: Low 110 mg/dL - High 140 mg/dL * Correction Factor: 20 mg/dL/unit * Nutritional / Prandial insulin per carb ratio of 1 unit per 8 grams CHO consumed * Please note that the plan above was derived based on current level of insulin resistance and hospital stress. These recommendations are appropriate for inpatient admission only. Plan of care upon discharge will need to be reassessed to avoid potential outpatient hypo/hyperglycemia. Thank you.
[2018-05-08 15:15] VITALS: BP 138/86; PULSE 67; TEMP 36.6; O2SAT 99
--- NOTE | 2018-05-08 17:36 | Progress Note ---
Medicine Progress Note Date & Time of Visit: May 08, 2018 at 17:36. Subjective Delayed entry date of service May 07, 2018 Seen sitting up in bed, comfortable States his abdominal pain is improving No nausea No fever chills no other symptoms Objective Last 8 Hrs Date Time Temp Pulse Resp B/P (MAP) Pulse Ox O2 Delivery O2 Flow Rate FiO2 05/08/18 16:00 Room Air 05/08/18 15:15 36.6 67 16 138/86 (103) 99 Room Air 05/08/18 11:14 36.7 79 18 155/78 (103) Physical Exam: General-oriented 3, speaking sentences, no accessory muscle use Eyes- anicteric Neck-no JVD Lungs- clear breath sounds bilaterally Heart-normal, regular rhythm; no murmur, no gallop, no rub appreciated Abdomen- normal bowel sounds, soft, nontender Extremities- no pretibial edema, no calf tenderness; peripheral pulses intact Neuro- alert, oriented x 3; no gross focal neurologic deficits Skin- warm & dry Laboratory Results: Last 24 Hours Test 05/07/18 20:41 05/08/18 08:07 05/08/18 12:14 05/08/18 17:17 Bedside Glucose 209 mg/dl 230 mg/dl 118 mg/dl 89 mg/dl Assessment & Plan ASSESSMENT AND PLAN: This is a 47-year-old male who presents with abdominal pain and found to have possible pneumoperitoneum or colitis with proctitis. 1. Abdominal pain, possible infectious colitis versus peritonitis in the setting of portal dialysis Abdominal pain continues to improve Peritoneal fluid culture negative so far Continue Cipro and Flagyl, appreciate GI recommendations Vancomycin discontinued, appreciate nephrology recommendations 2. End-stage renal disease on peritoneal dialysis. nephrology consulted, patient on dialysis per nephrology 3. Diabetes on Levemir insulin sliding scale Blood glucose levels not at goal Consulted pharmacy glycemic control 4. History of coronary artery disease status post coronary artery bypass graft. Continue home medication of aspirin, Coreg, Lipitor, Imdur. Currently stable. 5. History of hypertension. Continue amlodipine and Imdur, Coreg, and Lasix. 6. Hyperlipidemia. Continue statin. 7. Anemia mostly anemia of chronic disease. Monitor the labs. 8. BPH The patient is on Flomax. 7. Hypothyroidism. Continue Synthroid. . Deep vein thrombosis prophylaxis. Heparin subcutaneous. DISPOSITION: Pending Management of possible colitis versus peritonitis in progress Anticipate discharge to home when medically stable Current Inpatient Medications: Current Inpatient Medications Medications (Trade) Dose Ordered Sig/Mitchell Route Start Time Stop Time Status Last Admin Dose Admin Heparin Sodium (Porcine) (Heparin Sq 5000 Unit/0.5ml) 5,000 unit Q8 SQ 05/06/18 08:00 06/05/18 07:59 Acetaminophen (Tylenol Tab) 650 mg Q4H PRN PO 05/06/18 00:30 06/05/18 00:29 05/07/18 00:36 650 MG Polyethylene (Miralax Powder Packet) 17 gm DAILY PRN PO 05/06/18 00:30 06/05/18 00:29 Ondansetron HCl (Zofran Inj) 4 mg Q6H PRN IV 05/06/18 00:30 06/05/18 00:29 05/07/18 18:00 4 MG Aspirin (Ecotrin Tab) 81 mg QAM PO 05/06/18 09:00 06/05/18 08:59 05/08/18 09:19 81 MG Atorvastatin Calcium (Lipitor Tab) 80 mg QPM PO 05/06/18 21:00 06/05/18 20:59 05/07/18 20:52 80 MG Carvedilol (Coreg Tab) 18.75 mg QAM PO 05/06/18 09:00 06/05/18 08:59 05/08/18 09:20 18.75 MG Furosemide (Lasix Tab) 80 mg QPM PO 05/06/18 21:00 06/05/18 20:59 05/07/18 20:51 80 MG Furosemide (Lasix Tab) 160 mg QAM PO 05/06/18 09:00 06/05/18 08:59 05/08/18 09:27 160 MG Isosorbide Mononitrate (Imdur Ext Rel Tab) 30 mg QAM PO 05/06/18 09:00 06/05/18 08:59 05/08/18 09:20 30 MG Levothyroxine Sodium (Synthroid Tab) 25 mcg DAILYBB PO 05/06/18 06:00 06/05/18 06:59 05/08/18 05:49 25 MCG Tamsulosin HCl (Flomax Cap) 0.4 mg QPM PO 05/06/18 21:00 06/05/18 20:59 05/07/18 20:51 0.4 MG Amlodipine Besylate (Norvasc Tab) 10 mg QAM PO 05/06/18 09:00 06/05/18 08:59 05/08/18 09:19 10 MG Diphenhydramine HCl (Benadryl Cap) 25 mg DAILY PRN PO 05/06/18 00:30 06/05/18 00:29 Sevelamer HCl (Renagel Tab) 1,600 mg UD PRN PO 05/06/18 00:30 06/05/18 00:29 Sevelamer HCl (Renagel Tab) 3,200 mg TIDM PO 05/06/18 08:00 06/05/18 07:59 05/08/18 12:58 3,200 MG Morphine Sulfate (MoRPHine SULFATE INJ) 3 mg Q4 PRN IV 05/06/18 00:45 05/20/18 00:44 Ciprofloxacin/ Dextrose 400 mg/ Prmx 200 ml @ 100 mls/hr Q24H IV 05/06/18 03:00 05/16/18 02:59 05/08/18 03:33 100 MLS/HR Metronidazole 500 mg/Prmx 100 ml @ 100 mls/hr Q8H IV 05/06/18 02:00 05/16/18 01:59 05/08/18 09:28 100 MLS/HR Glucose (Glucose 40% Gel) 15-30 GRAMS 15 GRAMS... UD PRN PO 05/06/18 01:30 06/05/18 01:29 Glucose (Glucose Chew Tab) 4-8 Tablets 4 Tabl... UD PRN PO 05/06/18 01:30 06/05/18 01:29 Dextrose (Dextrose 50% 50ML Syringe) 25-50ML 25ML FOR ... UD PRN IV 05/06/18 01:30 06/05/18 01:29 Glucagon (Glucagon Inj) 1 mg UD PRN IM 05/06/18 01:30 06/05/18 01:29 Carbohydrates (Carbohydrates For Hypoglycemia) 15-30 GRAMS 15 grams if BSG 54-69... UD PRN PO 05/06/18 01:30 06/05/18 01:29 Ciprofloxacin (Consult) 1 ea UD PRN N/A 05/06/18 02:15 06/05/18 02:14 Insulin Aspart (novoLOG ASPART) SLIDING SCALE G... ACHS SC 05/06/18 17:15 06/05/18 05:59 05/08/18 13:00 2 UNITS Miscellaneous Information (Consult Glycemic Management Pharmacy) 1 ea UD PRN N/A 05/07/18 16:52 06/06/18 16:51 Promethazine HCl 12.5 mg/Sodium Chloride 50.5 ml @ 204 mls/hr Q6H PRN IV 05/07/18 19:45 06/06/18 19:44 05/07/18 20:15 204 MLS/HR Insulin Detemir (Levemir Flexpen/ FlexTouch) PLEASE SEE PROTOCOL TE... HS SC 05/08/18 21:00 06/06/18 21:29
--- NOTE | 2018-05-08 18:02 | Progress Note ---
Medicine Progress Note Date & Time of Visit: May 08, 2018 at 17:58. Subjective Seen resting in bed, comfortable States his abdominal pain is resolved. No nausea or vomiting denies fever chills Denies other symptoms States he is back to baseline States he is ready would like to be discharged today possible Objective Last 8 Hrs Date Time Temp Pulse Resp B/P (MAP) Pulse Ox O2 Delivery O2 Flow Rate FiO2 05/08/18 16:00 Room Air 05/08/18 15:15 36.6 67 16 138/86 (103) 99 Room Air 05/08/18 11:14 36.7 79 18 155/78 (103) Physical Exam: General-oriented 3, speaking sentences, no accessory muscle use Eyes- anicteric Neck-no JVD Lungs- clear breath sounds bilaterally, no crackles no wheezing Heart-normal, regular rhythm; no murmur Abdomen- normal bowel sounds, soft, nontender Extremities- no pretibial edema, no calf tenderness; peripheral pulses intact Neuro- alert, oriented x 3; no gross focal neurologic deficits Skin- warm & dry Laboratory Results: Last 24 Hours Test 05/07/18 20:41 05/08/18 08:07 05/08/18 12:14 05/08/18 17:17 Bedside Glucose 209 mg/dl 230 mg/dl 118 mg/dl 89 mg/dl Assessment & Plan ASSESSMENT AND PLAN: This is a 47-year-old male who presents with abdominal pain and found to have possible pneumoperitoneum or colitis with proctitis. 1. Abdominal pain, likely infectious colitis GI service consulted, Dr. Aquino Placed on Cipro and Flagyl IV 3 days Also placed on empiric vancomycin for possible peritonitis but peritoneal fluid culture is negative Abdominal pain resolved will need 7 more days of p.o. Cipro and Flagyl to complete 10 days of therapy patient Will also need colonoscopy in 6 weeks, GI to call patient for appointment, please confirm 2. End-stage renal disease on peritoneal dialysis. nephrology consulted 3. Diabetes continue usual insulin regimen 4. History of coronary artery disease status post coronary artery bypass graft. Continue home medication of aspirin, Coreg, Lipitor, Imdur. Currently stable. 5. History of hypertension. Continue amlodipine and Imdur, Coreg, and Lasix. 6. Hyperlipidemia. Continue statin. 7. Anemia mostly anemia of chronic disease. hemoglobin stable 8. BPH The patient is on Flomax. 7. Hypothyroidism. Continue Synthroid. . Deep vein thrombosis prophylaxis. Heparin subcutaneous. DISPOSITION: Discharged home Follow up with primary care physician next week Follow-up with nephrology as scheduled colonoscopy in 6 weeks Current Inpatient Medications: Current Inpatient Medications Medications (Trade) Dose Ordered Sig/Mitchell Route Start Time Stop Time Status Last Admin Dose Admin Heparin Sodium (Porcine) (Heparin Sq 5000 Unit/0.5ml) 5,000 unit Q8 SQ 05/06/18 08:00 06/05/18 07:59 Acetaminophen (Tylenol Tab) 650 mg Q4H PRN PO 05/06/18 00:30 06/05/18 00:29 05/07/18 00:36 650 MG Polyethylene (Miralax Powder Packet) 17 gm DAILY PRN PO 05/06/18 00:30 06/05/18 00:29 Ondansetron HCl (Zofran Inj) 4 mg Q6H PRN IV 05/06/18 00:30 06/05/18 00:29 05/07/18 18:00 4 MG Aspirin (Ecotrin Tab) 81 mg QAM PO 05/06/18 09:00 06/05/18 08:59 05/08/18 09:19 81 MG Atorvastatin Calcium (Lipitor Tab) 80 mg QPM PO 05/06/18 21:00 06/05/18 20:59 05/07/18 20:52 80 MG Carvedilol (Coreg Tab) 18.75 mg QAM PO 05/06/18 09:00 06/05/18 08:59 05/08/18 09:20 18.75 MG Furosemide (Lasix Tab) 80 mg QPM PO 05/06/18 21:00 06/05/18 20:59 05/07/18 20:51 80 MG Furosemide (Lasix Tab) 160 mg QAM PO 05/06/18 09:00 06/05/18 08:59 05/08/18 09:27 160 MG Isosorbide Mononitrate (Imdur Ext Rel Tab) 30 mg QAM PO 05/06/18 09:00 06/05/18 08:59 05/08/18 09:20 30 MG Levothyroxine Sodium (Synthroid Tab) 25 mcg DAILYBB PO 05/06/18 06:00 06/05/18 06:59 05/08/18 05:49 25 MCG Tamsulosin HCl (Flomax Cap) 0.4 mg QPM PO 05/06/18 21:00 06/05/18 20:59 05/07/18 20:51 0.4 MG Amlodipine Besylate (Norvasc Tab) 10 mg QAM PO 05/06/18 09:00 06/05/18 08:59 05/08/18 09:19 10 MG Diphenhydramine HCl (Benadryl Cap) 25 mg DAILY PRN PO 05/06/18 00:30 06/05/18 00:29 Sevelamer HCl (Renagel Tab) 1,600 mg UD PRN PO 05/06/18 00:30 06/05/18 00:29 Sevelamer HCl (Renagel Tab) 3,200 mg TIDM PO 05/06/18 08:00 06/05/18 07:59 05/08/18 12:58 3,200 MG Morphine Sulfate (MoRPHine SULFATE INJ) 3 mg Q4 PRN IV 05/06/18 00:45 05/20/18 00:44 Ciprofloxacin/ Dextrose 400 mg/ Prmx 200 ml @ 100 mls/hr Q24H IV 05/06/18 03:00 05/16/18 02:59 05/08/18 03:33 100 MLS/HR Metronidazole 500 mg/Prmx 100 ml @ 100 mls/hr Q8H IV 05/06/18 02:00 05/16/18 01:59 05/08/18 09:28 100 MLS/HR Glucose (Glucose 40% Gel) 15-30 GRAMS 15 GRAMS... UD PRN PO 05/06/18 01:30 06/05/18 01:29 Glucose (Glucose Chew Tab) 4-8 Tablets 4 Tabl... UD PRN PO 05/06/18 01:30 06/05/18 01:29 Dextrose (Dextrose 50% 50ML Syringe) 25-50ML 25ML FOR ... UD PRN IV 05/06/18 01:30 06/05/18 01:29 Glucagon (Glucagon Inj) 1 mg UD PRN IM 05/06/18 01:30 06/05/18 01:29 Carbohydrates (Carbohydrates For Hypoglycemia) 15-30 GRAMS 15 grams if BSG 54-69... UD PRN PO 05/06/18 01:30 06/05/18 01:29 Ciprofloxacin (Consult) 1 ea UD PRN N/A 05/06/18 02:15 06/05/18 02:14 Insulin Aspart (novoLOG ASPART) SLIDING SCALE G... ACHS SC 05/06/18 17:15 06/05/18 05:59 05/08/18 13:00 2 UNITS Miscellaneous Information (Consult Glycemic Management Pharmacy) 1 ea UD PRN N/A 05/07/18 16:52 06/06/18 16:51 Promethazine HCl 12.5 mg/Sodium Chloride 50.5 ml @ 204 mls/hr Q6H PRN IV 05/07/18 19:45 06/06/18 19:44 05/07/18 20:15 204 MLS/HR Insulin Detemir (Levemir Flexpen/ FlexTouch) PLEASE SEE PROTOCOL TE... HS SC 05/08/18 21:00 06/06/18 21:29
[2018-05-08] MEDS ORDERED: CPR500 PO (18:06)
[2018-05-08] MEDS ORDERED: METR-163 PO (18:06)
--- NOTE | 2018-05-08 18:10 | Discharge Instructions ---
Discharge Instructions Date of Service May 08, 2018. Admission Reason for Admission: Colitis, Llq Abdominal Pain Discharge Discharge Diagnosis / Problem: Abdominal pain possible infectious colitis Discharge Goals Goal(s): Diagnostic testing, Therapeutic intervention Activity Recommendations Activity Limitations: as noted below (No heavy exertion until reevaluated by primary care physician) Lifting Limitations: until after follow-up appointment Exercise/Sports Limitations: until after follow-up appointment Driving or Machine Use: No driving until evaluated by primary care physician . Instructions / Follow-Up Instructions / Follow-Up Please review your new medications and follow instructions carefully. Include probiotic in your daily diet while on antibiotics and at least one week later after finishing the course of antibiotics. Please call your primary care physician or return to ER immediately if with recurrence of symptoms including abdominal pain, fevers chills, nausea vomiting , blood in your stools. Follow-up with primary care physician in 3-5 days. Follow-up with GI clinic for colonoscopy in 6 weeks. Current Hospital Diet Patient's current hospital diet: Renal Diet, AHA Diet (Heart Healthy), Diabetes Type 2 Diet, Regular Diet Discharge Diet Recommended Diet: AHA Diet (Heart Healthy), Diabetes Type 2 Diet, Renal Diet Procedures Procedures Performed: CT scan of the abdomen and pelvis Pending Studies Studies pending at discharge: yes List of pending studies: Colonoscopy in 6 weeks Laboratory Results Hemoglobin A1c Test 03/30/18 01:10 Range/Units Estimated Average Glucose 140 mg/dl Hemoglobin A1c 6.5 H 4.5-5.6 % Medical Emergencies . Who to Call and When: Medical Emergencies: If at any time you feel your situation is an emergency, please call 911 immediately. . Non-Emergent Contact Non-Emergency issues call your: Primary Care Provider, [employer] Call Non-Emergent contact if: you have a fever, your pain is not controlled, your pain is worsening, your pain is unusual for you, you have any medication questions . . "Provider Documentation" section prepared by Aldair Max. .
--- NOTE | 2018-05-08 18:18 | Discharge Summary ---
Discharge Summary Date of Service May 08, 2018. Discharge Summary Admission Date: May 06, 2018 at 00:41 Discharge Date: May 08, 2018 Discharge Disposition: Home Principal Diagnosis: Abdominal pain, likely infectious colitis Secondary Diagnoses/Problems: Please refer to hospital course below. Procedures: ABDOMEN AND PELVIS CT WITHOUT CONTRAST CT DOSE: 1601.99 mGy.cm HISTORY: Acute left lower quadrant abdominal pain continued LLQ pain TECHNIQUE: Multiaxial CT images of the abdomen and pelvis were performed without contrast. A dose lowering technique was utilized adhering to the principles of ALARA. COMPARISON STUDY: CT abdomen and pelvis 04/25/2018. FINDINGS: Prior median sternotomy. The imaged inferior cardiac chambers are upper limits of normal in size with coronary arterial and mitral annular calcifications noted. Calcified granulomata about the left lung base. 4 mm solid nodule of the basal left lower lobe. Contracted gallbladder with cholelithiasis. Liver is unremarkable. No intrahepatic biliary ductal dilation. Spleen is enlarged measuring 15.3 cm in length. Pancreas and right adrenal gland are unremarkable. Mild thickening of the left adrenal gland. Mild cortical thinning about the bilateral kidneys with extensive renal vascular calcifications. Cortical scarring about the superior pole left kidney. Mild nonspecific bilateral perinephric stranding. Ureters are unremarkable. Mild circumferential wall thickening of the bladder. Small fat filled left inguinal hernia. Aorta and IVC are within normal limits. Mildly prominent periaortic, retrocrural, iliac chain and periportal lymph nodes are redemonstrated with periaortic lymph nodes measuring up to 9 mm, unchanged from comparison. There is no bowel obstruction. Peritoneal dialysis catheter is again noted coiling within the left lateral lower abdomen. Trace amount of abdominal pelvic ascites likely related to the catheter. There is moderate amount of pneumoperitoneum, notably within the upper abdomen. Mild wall thickening of the rectum redemonstrated which has improved from comparison study. No free air within the retroperitoneum. There is mild wall thickening about the distal transverse colon and splenic flexure, descending and proximal sigmoid colon. Moderate subcutaneous edema about the body wall. Subxiphoid ventral abdominal wall hernia, diastases 3.2 cm. Fluid containing small bowel moderate periumbilical hernia. Bones appear to be intact. Degenerative changes of the lower lumbar spine. IMPRESSION: 1. Peritoneal dialysis catheter redemonstrated with small volume of abdominal pelvic ascites likely related to normally functioning catheter. 2. Moderate amount of pneumoperitoneum is suspicious for perforated viscus. Correlate clinically to exclude recent abdominal intervention which could alternatively be a cause for the pneumoperitoneum. 3. Mild wall thickening of the colon extends from the distal transverse colon through the rectum suggesting partial distention or acute colitis with proctitis. The degree of rectal wall thickening has mildly improved from comparison study 04/25/2018. 4. Cholelithiasis without CT evidence of acute cholecystitis. 5. Splenomegaly. 6. Additional findings as above. Consultations: Kick Boxer Dr. Aquino, Nephro Dr. Cartwright Pending Studies/Follow-Up: Please refer to hospital course below. Medication Reconciliation New Medications: Ciprofloxacin (Ciprofloxacin HCl) 500 Mg Tab 1 TAB PO DAILY for 7 Days, #7 TAB 0 Refills Metronidazole (Flagyl) 500 Mg Tab 500 MG PO TID for 7 Days, #21 TAB 0 Refills Continued Medications: Acetaminophen (Tylenol) 500 Mg Tab 500 MG PO Q4H PRN for Pain Amlodipine Besylate (Amlodipine Besylate) 10 Mg Tab 10 MG PO QAM Aspirin (Aspirin Ec) 81 Mg Tab 81 MG PO QAM Atorvastatin (Lipitor) 80 Mg Tab 80 MG PO QPM Carvedilol (Carvedilol) 12.5 Mg Tab 18.75 MG PO QAM TAKE 1 1/2 TABLETS A DAY Diphenhydramine Hcl (Benadryl Allergy) 25 Mg Tab 25 MG PO UD PRN for ALLERGIC REACTION TAKE PER PACKAGE DIRECTIONS Furosemide (Lasix) 80 Mg Tab 160 MG PO QAM, TAB Furosemide (Lasix) 80 Mg Tab 80 MG PO QPM, TAB Insulin Aspart (Novolog) 100 Units/Ml Inj 1 DOSE SC AC COVERAGE DIRECTED BY SLIDING SCALE Insulin Detemir (Levemir Flextouch) 100 Unit/Ml Inj 10 UNITS SC HS Isosorbide Mononitrate Ext Rel (Imdur Ext Rel) 30 Mg Tabcr 30 MG PO QAM, TAB Levothyroxine Sodium (Levothyroxine Sodium) 25 Mcg Tab 25 MCG PO QAM Sevelamer Carbonate (Renvela) 800 Mg Tab 3200 MG PO TIDM TAKE 4 TABLETS WIH MEALS Sevelamer Carbonate (Renvela) 800 Mg Tab 1600 MG PO UD, TAB TAKE 2 TABLETS WITH SNACKS Tamsulosin HCl (Tamsulosin HCl) 0.4 Mg Cap 0.4 MG PO QPM Admission Information HPI (per Admitting provider): DATE OF ADMISSION: 05/06/2018 CHIEF COMPLAINT: Left abdominal pain. HISTORY OF PRESENT ILLNESS: This is a 47-year-old male with past medical history significant for diabetes type 2, CAD status post CABG, end-stage renal disease on peritoneal dialysis, diabetic neuropathy, thrombocytopenia, obesity, presents due to left abdominal pain. Patient was in the ER about 10 days ago with abdominal pain. At that time, CAT scan showed proctitis and he was discharged home and followed with family doctor who prescribed some milk of magnesia. The patient said last Friday he had a episode of vomiting, some nausea, but then he was okay, but he had small bowel movement but still having ongoing left lower quadrant abdominal pain. He was brought into the ER. In the ER, CAT scan of the abdomen and pelvis was done, which was showing some moderate amount of pneumoperitoneum suspicious for perforated viscus. Mild wall thickening of the colon extending from the distal transverse colon to the rectum suggesting partial distention or acute colitis with proctitis, rectal wall thickening was mildly improved from prior study on 04/25/2018, cholelithiasis, splenomegaly.Patient was seen by surgery in the ER and pneumoperitoneum thought to be mostly from the peritoneal catheter. The patient does not seem to sick. The patient is resting comfortably. His pain is better now, hemodynamically stable. Denies any fever, chills, no headaches, no blurred visions, no dizziness, no earaches, no runny nose, no sore throat. Has some runny nose, but no sore throat, no difficulty swallowing. No cough, no chest pain, no shortness of breath. Currently, no nausea or vomiting, no blood in the stools. He made some urine. Ambulates okay. ALLERGIES: PENICILLIN. PAST MEDICAL HISTORY: As mentioned above. PAST SURGICAL HISTORY: AV shunt, CABG, laser procedure of the eyes. MEDICATIONS: The patient is on aspirin 81 mg p.o. daily, Coreg patient takes 18.75 mg daily in the a.m., Lasix patient takes 160 mg in the morning and 80 mg in the evening, insulin sliding scale, Renvela 3200mg with meals and 1600 mg with snacks, Lipitor 80 mg p.o. daily, Flomax 0.4 mg p.o. daily, levothyroxine 25 mg p.o. daily, Levemir 10 mg p.o. at bedtime, nitroglycerin 0.4 mg sublingual p.r.n., amlodipine 10 mg p.o. daily, Imdur 30 mg p.o. daily, Tylenol 500 mg p.o. q. 4 hours p.r.n., Benadryl as needed. FAMILY HISTORY: Significant for brother who had cancer. Mother had lymphoma. Father had [place]. Mother has bypass. SOCIAL HISTORY: Single, quit smoking in 2013. Alcohol occasional. No drug use. REVIEW OF SYSTEMS: As per HPI. Physical Exam (per Admitting): PHYSICAL EXAMINATION: GENERAL: The patient is obese, not in distress. VITAL SIGNS: Temperature 37, pulse 84, respiratory rate 20, blood pressure 148/74, oxygen 97% room air. HEENT: No pallor, no icterus. Pupils equal, round, and react to light . Neck No carotid bruits.No neck masses CARDIOVASCULAR: S1, S2, regular rate and rhythm, no murmur, no gallop. RESPIRATORY SYSTEM: Clear to auscultation bilaterally. No accessory muscle use. No wheezing, no crackles. ABDOMEN: Soft, bowel sounds present. Tenderness in the periumbilical region and left lower quadrant umbilical hernia seen. CENTRAL NERVOUS SYSTEM: Cranial nerves II-XII were grossly nonfocal. EXTREMITIES: No edema, no erythema. Hospital Course ASSESSMENT AND PLAN: This is a 47-year-old male who presents with abdominal pain and found to have possible pneumoperitoneum or colitis with proctitis. 1. Abdominal pain, likely infectious colitis GI service consulted, Dr. Aquino Placed on Cipro and Flagyl IV 3 days Also placed on empiric vancomycin for possible peritonitis but peritoneal fluid culture is negative Abdominal pain resolved will need 7 more days of p.o. Cipro and Flagyl to complete 10 days of therapy patient Will also need colonoscopy in 6 weeks, GI to call patient for appointment, please confirm 2. End-stage renal disease on peritoneal dialysis. nephrology consulted 3. Diabetes continue usual insulin regimen 4. History of coronary artery disease status post coronary artery bypass graft. Continue home medication of aspirin, Coreg, Lipitor, Imdur. Currently stable. 5. History of hypertension. Continue amlodipine and Imdur, Coreg, and Lasix. 6. Hyperlipidemia. Continue statin. 7. Anemia mostly anemia of chronic disease. hemoglobin stable 8. BPH The patient is on Flomax. 7. Hypothyroidism. Continue Synthroid. 8. Lung Nodule 4mm, solid, Left Lower Lobe Cholelithiasis - seen on CT abdomen/pelvis - full report noted in the procedure section above - ff up as outpatient DISPOSITION: Discharged home Follow up with primary care physician next week- tried to contact scheduling office, closed already, will call tomorrow Follow-up with nephrology as scheduled colonoscopy in 6 weeks Total time spent on discharge = 30 minutes This includes examination of the patient, discharge planning, medication reconciliation, and communication with other providers. Discharge Instructions Discharge Instructions Date of Service May 08, 2018. Admission Reason for Admission: Colitis, Llq Abdominal Pain Discharge Discharge Diagnosis / Problem: Abdominal pain possible infectious colitis Discharge Goals Goal(s): Diagnostic testing, Therapeutic intervention Activity Recommendations Activity Limitations: as noted below (No heavy exertion until reevaluated by primary care physician) Lifting Limitations: until after follow-up appointment Exercise/Sports Limitations: until after follow-up appointment Driving or Machine Use: No driving until evaluated by primary care physician . Instructions / Follow-Up Instructions / Follow-Up Please review your new medications and follow instructions carefully. Include probiotic in your daily diet while on antibiotics and at least one week later after finishing the course of antibiotics. Please call your primary care physician or return to ER immediately if with recurrence of symptoms including abdominal pain, fevers chills, nausea vomiting , blood in your stools. Follow-up with primary care physician in 3-5 days. Follow-up with GI clinic for colonoscopy in 6 weeks. Current Hospital Diet Patient's current hospital diet: Renal Diet, AHA Diet (Heart Healthy), Diabetes Type 2 Diet, Regular Diet Discharge Diet Recommended Diet: AHA Diet (Heart Healthy), Diabetes Type 2 Diet, Renal Diet Procedures Procedures Performed: CT scan of the abdomen and pelvis Pending Studies Studies pending at discharge: yes List of pending studies: Colonoscopy in 6 weeks Laboratory Results Hemoglobin A1c Test 03/30/18 01:10 Range/Units Estimated Average Glucose 140 mg/dl Hemoglobin A1c 6.5 H 4.5-5.6 % Medical Emergencies . Who to Call and When: Medical Emergencies: If at any time you feel your situation is an emergency, please call 911 immediately. . Non-Emergent Contact Non-Emergency issues call your: Primary Care Provider, Planning Feeder Call Non-Emergent contact if: you have a fever, your pain is not controlled, your pain is worsening, your pain is unusual for you, you have any medication questions . . "Provider Documentation" section prepared by Aldair Max. .
[2018-05-08 18:23] VITALS: BP 138/86; PULSE 67; TEMP 36.6; O2SAT 99
[2018-05-08] MEDS ORDERED: INSULIN DETEMIR FLEXPEN/FLEX TOUCH 100 UNITS/ML 3ML SC SCH (21:00)
== END 2018-05-08 18:50 | disposition home or self-care (01) | DRG 391 ==
LOC: EDBD 20:12 → C.EDC 20:13 → C.MSN 05-06 00:41 → EDBEDREQ 05-06 00:44 → CANRESERV 05-06 01:16 → ENRESERV 05-06 01:16
PROVIDERS: ADMIT Internal Medicine; ATTEND Internal Medicine
DX: A09 Infectious gastroenteritis and colitis, unspecified (principal); E11.319 Type 2 diabetes mellitus with unspecified diabetic retinopathy without macular edema; N18.6 End stage renal disease; E11.40 Type 2 diabetes mellitus with diabetic neuropathy, unspecified; I50.22 Chronic systolic (congestive) heart failure; E78.5 Hyperlipidemia, unspecified; E11.21 Type 2 diabetes mellitus with diabetic nephropathy; I25.10 Atherosclerotic heart disease of native coronary artery without angina pectoris; E03.9 Hypothyroidism, unspecified; I25.2 Old myocardial infarction; Z83.3 Family history of diabetes mellitus; Z82.49 Family history of ischemic heart disease and other diseases of the circulatory system; Z95.1 Presence of aortocoronary bypass graft; Z87.891 Personal history of nicotine dependence; Z99.2 Dependence on renal dialysis; D63.8 Anemia in other chronic diseases classified elsewhere; N40.0 Benign prostatic hyperplasia without lower urinary tract symptoms; Z88.0 Allergy status to penicillin; E66.9 Obesity, unspecified

== ENCOUNTER 2018-05-11 23:38 | Inpatient (IN) | payer OTHER ==
[~2018-05-11] VITALS: Ht 167.6 cm; Wt 117.3 kg
[~2018-05-11 23:38] MED LIST changes: +CPR500 PO; +FLM4 PO; +INSU3INJ3 SC; +METR-163 PO; +NRV/10 PO; +NVLG SC
[2018-05-11] MEDS ORDERED: SODIUM CHLORIDE 0.9% 500ML 500 ML IV STA (23:55)
[2018-05-11] MEDS ORDERED: ONDANSETRON INJ 2 MG/ML 2 ML VIAL IV STA (23:55)
--- NOTE | 2018-05-11 23:56 | EMERGENCY ROOM VISIT NOTE ---
History Report prepared by Nicole: Sonia Mckenna Under the Supervision of: Dr. Montrell Mack M.D. First contact with patient: 23:45 Chief Complaint: VOMITING Stated Complaint: HEMATEMESIS History of Present Illness The patient is a 47 year old male who presents to the Emergency Room with complaints of vomiting beginning at 1330 today. He notes that at 1330, he was vomiting clear/yellow stomach acid. However in the past 3 hours, he has been vomiting bright red blood which he describes as a "reddish brown paper substance." He states the only thing he has eaten today is 4 slices of toast. He denies drinking any alcohol. He takes a baby aspirin but is not on any blood thinners. Source of History: patient Onset: 1330 today Position: other (stomach) Quality: other (vomiting) Note: Negative drinking alcohol. Review of Systems See HPI for pertinent positives & negatives. A total of 10 systems reviewed and were otherwise negative. Past Medical & Surgical Medical Problems: (1) Diabetes mellitus, type II (2) Diabetic neuropathy (3) Diabetic retinopathy (4) Dyslipidemia (5) ESRD (end stage renal disease) (6) Heart disease (7) Hematemesis (8) Hyperkalemia (9) Hypertension (10) Hypoglycemia (11) Hypothyroidism (12) Lymphadenopathy (13) Myocardial infarction (14) SOB (shortness of breath) (15) Splenomegaly (16) Systolic CHF, chronic (17) Thrombocytopenia Surgical Problems: (1) H/O heart bypass surgery (2) Hx of CABG Family History Cancer Diabetes mellitus Heart disease Hypertension Kidney disease Kidney stones Social History Smoking Status: Never Smoker Alcohol Use: none Drug Use: none Marital Status: single Housing Status: lives with family Occupation Status: employed Current/Historical Medications Scheduled Amlodipine Besylate (Amlodipine Besylate), 10 MG PO QAM Aspirin (Aspirin Ec), 81 MG PO QAM Atorvastatin (Lipitor), 80 MG PO QPM Carvedilol (Carvedilol), 18.75 MG PO QAM Ciprofloxacin (Ciprofloxacin HCl), 1 TAB PO DAILY Furosemide (Lasix), 160 MG PO QAM Furosemide (Lasix), 80 MG PO QPM Insulin Aspart (Novolog), 1 DOSE SC AC Insulin Detemir (Levemir Flextouch), 10 UNITS SC HS Isosorbide Mononitrate Ext Rel (Imdur Ext Rel), 30 MG PO QAM Levothyroxine Sodium (Levothyroxine Sodium), 25 MCG PO QAM Metronidazole (Flagyl), 500 MG PO TID Sevelamer Carbonate (Renvela), 3,200 MG PO TIDM Sevelamer Carbonate (Renvela), 1,600 MG PO UD Tamsulosin HCl (Tamsulosin HCl), 0.4 MG PO QPM Scheduled PRN Acetaminophen (Tylenol), 500 MG PO Q4H PRN for Pain Diphenhydramine Hcl (Benadryl Allergy), 25 MG PO UD PRN for ALLERGIC REACTION Allergies Coded Allergies: Penicillins (Verified Allergy, Severe, ANAPHYLAXIS, 05/12/18) Physical Exam Vital Signs Date Time Temp Pulse Resp B/P (MAP) Pulse Ox O2 Delivery O2 Flow Rate FiO2 05/12/18 01:23 83 18 159/85 98 Room Air 05/11/18 23:54 84 05/11/18 23:47 36.7 85 18 165/97 100 Room Air Physical Exam GENERAL: Patient is mildly anxious appearing and in mild distress. Petechia of cheeks and forehead EYES: No scleral icterus, unremarkable pupils. ENT: Mucous membranes dry, no nasal congestion. NECK: No masses appreciated, no meningismus, trachea is midline. RESPIRATORY: No dyspnea. Clear to auscultation and equal bilaterally. No wheeze , no rhonchi. CARDIOVASCULAR: Regular rate and rhythm. No murmurs, rubs, gallops appreciated. GASTROINTESTINAL: Abdomen soft, nontender, peritoneal dialysis. Bruising on the right abdomen (from insulin shots). Bowel sounds positive. No masses appreciated. BACK: No midline tenderness, no CVA tenderness EXTREMITIES: Normal motion all extremities, no cyanosis. Legs have moderate edema bilaterally. Minimal pitting. NEUROLOGIC: Alert and oriented, no acute motor or sensory deficits, no focal weakness, cranial nerves grossly intact. SKIN: No rash, no jaundice, no diaphoresis. Medical Decision & Procedures Laboratory Results 05/12/18 00:13 Red Blood Count 3.39, Mean Corpuscular Volume 87.3, Mean Corpuscular Hemoglobin 30.1, Mean Corpuscular Hemoglobin Concent 34.5, Mean Platelet Volume 9.3, Neutrophils (%) (Auto) 74.6, Lymphocytes (%) (Auto) 14.2, Monocytes (%) (Auto) 7.2, Eosinophils (%) (Auto) 3.5, Basophils (%) (Auto) 0.3, Neutrophils # (Auto) 4.69, Lymphocytes # (Auto) 0.89, Monocytes # (Auto) 0.45, Eosinophils # (Auto) 0.22, Basophils # (Auto) 0.02 05/12/18 00:13 Test 05/12/18 00:13 White Blood Count 6.28 K/uL (4.8-10.8) Red Blood Count 3.39 M/uL (4.7-6.1) Hemoglobin 10.2 g/dL (14.0-18.0) Hematocrit 29.6 % (42-52) Mean Corpuscular Volume 87.3 fL (80-100) Mean Corpuscular Hemoglobin 30.1 pg (25-34) Mean Corpuscular Hemoglobin Concent 34.5 g/dl (32-36) Platelet Count 127 K/uL (130-400) Mean Platelet Volume 9.3 fL (7.4-10.4) Neutrophils (%) (Auto) 74.6 % Lymphocytes (%) (Auto) 14.2 % Monocytes (%) (Auto) 7.2 % Eosinophils (%) (Auto) 3.5 % Basophils (%) (Auto) 0.3 % Neutrophils # (Auto) 4.69 K/uL (1.4-6.5) Lymphocytes # (Auto) 0.89 K/uL (1.2-3.4) Monocytes # (Auto) 0.45 K/uL (0.11-0.59) Eosinophils # (Auto) 0.22 K/uL (0-0.5) Basophils # (Auto) 0.02 K/uL (0-0.2) RDW Standard Deviation 41.4 fL (36.4-46.3) RDW Coefficient of Variation 13.1 % (11.5-14.5) Immature Granulocyte % (Auto) 0.2 % Immature Granulocyte # (Auto) 0.01 K/uL (0.00-0.02) Anion Gap 10.0 mmol/L (3-11) Est Creatinine Clear Calc Drug Dose 12.2 ml/min Estimated GFR () 7.0 Estimated GFR (Non- 6.0 BUN/Creatinine Ratio 4.2 (10-20) Calcium Level 8.1 mg/dl (8.5-10.1) Total Bilirubin 0.5 mg/dl (0.2-1) Direct Bilirubin 0.2 mg/dl (0-0.2) Aspartate Amino Transf (AST/SGOT) 28 U/L (15-37) Alanine Aminotransferase (ALT/SGPT) 30 U/L (12-78) Alkaline Phosphatase 129 U/L (45-117) Total Protein 5.7 gm/dl (6.4-8.2) Albumin 2.2 gm/dl (3.4-5.0) Lipase 118 U/L (73-393) Laboratory results as reviewed by me. Medications Administered Medications (Trade) Dose Ordered Sig/Mitchell Route Start Time Stop Time Status Last Admin Dose Admin Sodium Chloride 500 ml @ 999 mls/hr Q31M STAT IV 05/11/18 23:55 05/12/18 00:25 DC 05/12/18 00:27 999 MLS/HR Ondansetron HCl (Zofran Inj) 4 mg NOW STAT IV 05/11/18 23:55 05/11/18 23:59 DC 05/12/18 00:28 4 MG Pantoprazole Sodium 80 mg/ Dextrose 120 ml @ 480 mls/hr 0015 IV 05/12/18 00:15 05/12/18 00:29 DC 05/12/18 00:28 480 MLS/HR Pantoprazole Sodium 40 mg/ Dextrose 100 ml @ 20 mls/hr Q5H IV 05/12/18 00:30 05/12/18 05:29 05/12/18 00:28 20 MLS/HR ED Course 2351: The patient was evaluated in room B10. A complete history and physical exam was performed. 2355: Ordered Zofran Inj 4 mg IV, Sodium Chloride 500 ml @ 999 mls/hr IV 0015: Ordered Protonix IV Bolus/Drip 120 ml @ 480 mls/hr IV 0030: Ordered Protonix IV Bolus/Drip 100 ml @ 20 mls/hr IV 0125: I checked on the patient at this time. He is feeling better. 0129: Discussed the patient's case [facility] The patient will be evaluated for further treatment and disposition. Medical Decision Differential: Gastroenteritis, Food Borne, Gastritis, Gastric Ulcer, Esophageal Perforation, Electrolyte Abnormality, Dehydration, Intraabdominal Infection, Bowel Obstruction, Biliary Pathology, amongst other pathology entertained. 47 yr old male arrives vomiting coffee ground emesis a few days post discharge for his colitis. He does not have evidence of obstruction at this time. He has history of thrombocytopenia though PLTs are quite good for him currently. Type/Screen sent but no indication for transfusion at this time. Given hematemsis in this high risk complex medical patient I feel that IV protonix and monitoring in hospital indicated. Fortunately vitals stable currently. Abdominal exam is benign. Denies abnormal dialysate. He does not appear septic. He is not having breathing difficulty. Hospitalist consulted for further management. Medication Reconcilliation Current Medication List: was personally reviewed by me Consults Time Called: 0120 Consulting Physician: Javan Pino Hospitalist Returned Call: [phone] Discussed the patient's case with [facility]. The patient will be evaluated for further treatment and disposition. Impression Primary Impression: Upper GI bleed Additional Impression: Thrombocytopenia Scribe Attestation The scribe's documentation has been prepared under my direction and personally reviewed by me in its entirety. I confirm that the note above accurately reflects all work, treatment, procedures, and medical decision making performed by me. Departure Information Dispostion Being Evaluated By Hospitalist (Javan Pino Hospitalist) Referrals Dalton Marcelino III, M.D. (PCP) Patient Instructions My [facility] Problem Qualifiers
[2018-05-12] VITALS (7 sets, daily range): BP systolic 128–166; BP diastolic 74–90; PULSE 75–85; TEMP 36.6–37; O2SAT 97–100; Ht 167.6 cm; Wt 117.3 kg
[2018-05-12] MEDS ORDERED: PANTOprazole INJ 80 MG in DEXTROSE 5% 100ML IV SCH (00:15)
[2018-05-12 00:21] LABS: BASO % 0.3 %; BASO ABS # 0.02 K/uL (0-0.2); EOS % 3.5 %; EOS ABS # 0.22 K/uL (0-0.5); HEMATOCRIT 29.6 % (42-52); HEMOGLOBIN 10.2 g/dL (14.0-18.0); IG# 0.01 K/uL (0.00-0.02); LYMPH % 14.2 %; LYMPH ABS # 0.89 K/uL (1.2-3.4); MEAN CELL VOLUME 87.3 fL (80-100); MEAN CORPUSCULAR HEMOGLOBIN 30.1 pg (25-34); MEAN CORPUSCULAR HGB CONC 34.5 g/dl (32-36); MEAN PLATELET VOLUME 9.3 fL (7.4-10.4); MONO % 7.2 %; MONO ABS # 0.45 K/uL (0.11-0.59); NEUT % 74.6 %; NEUT ABS # 4.69 K/uL (1.4-6.5); PLATELET COUNT 127 K/uL (130-400); RED CELL DISTRIBUTION WIDTH CV 13.1 % (11.5-14.5); RED CELL DISTRIBUTION WIDTH SD 41.4 fL (36.4-46.3); WHITE BLOOD COUNT 6.28 K/uL (4.8-10.8)
[2018-05-12] MEDS ORDERED: PANTOprazole INJ 40 MG in DEXTROSE 5% 100ML IV SCH (00:30)
[2018-05-12 00:56] LABS: ALBUMIN 2.2 gm/dl (3.4-5.0); CALCIUM 8.1 mg/dl (8.5-10.1); CREATININE 9.39 mg/dl (0.60-1.40); POTASSIUM 3.3 mmol/L (3.5-5.1); TOTAL PROTEIN 5.7 gm/dl (6.4-8.2)
[2018-05-12] MEDS ORDERED: ACETAMINOPHEN 500 MG TAB PO PRN ×2 (02:45→03:00)
[2018-05-12] MEDS ORDERED: NITROGLYCERIN 0.4 MG SL PER TAB CHARGE SL PRN (02:45)
[2018-05-12] MEDS ORDERED: ALUMINUM/MAGNESIUM/SIMETH (MAALOX MAX) 30 ML UDC PO PRN (02:45)
[2018-05-12] MEDS ORDERED: ONDANSETRON INJ 2 MG/ML 2 ML VIAL IV PRN (02:45)
[2018-05-12] MEDS ORDERED: SEVELAMER HYDROCH 800 MG TAB PO PRN (02:45)
[2018-05-12] MEDS ORDERED: GLUCOSE 10 TABS/TUBE PO PRN (03:00)
[2018-05-12] MEDS ORDERED: CARBOHYDRATES FOR HYPOGLYCEMIA PO PRN (03:00)
[2018-05-12] MEDS ORDERED: DEXTROSE 50% 50 ML SYR IV PRN (03:00)
[2018-05-12] MEDS ORDERED: GLUCAGON FOR INJ 1 MG VIAL IM PRN (03:00)
[2018-05-12] MEDS ORDERED: GLUCOSE 40% GEL 15 GM TUBE PO PRN (03:00)
[2018-05-12] MEDS ORDERED: CIPROFLOXACIN CONSULT ACTIVE PRN (04:30)
[2018-05-12] MEDS: SODIUM CHLORIDE 0.9% 1000ML 1,000 ML IV SCH ×2 (04:38→23:57)
--- NOTE | 2018-05-12 04:40 | HISTORY & PHYSICAL EXAMINATION ---
DATE OF ADMISSION: 05/12/2018 CHIEF COMPLAINT: Hematemesis. HISTORY OF PRESENT ILLNESS: This is a 47-year-old male with past medical history significant for diabetes type 2, CAD status post CABG, end-stage renal disease on peritoneal dialysis, diabetic neuropathy, thrombocytopenia, obesity, who was recently in the hospital last week for abdominal pain and found to have colitis with proctitis and possible pneumoperitoneum, but pneumoperitoneum was thought to be from peritoneal dialysis catheter and he was treated with antibiotics and discharged a couple of days ago with Cipro and Flagyl, but the patient says since yesterday developed some nausea and vomiting, initially was vomiting bilious stuff, but in the evening of coming to the ER, he vomited a couple of drops of blood and in the ER he has some coffee-ground emesis, so we are called for admission. Currently, resting comfortably and hemodynamically stable. He has no more episodes of vomiting, but still feeling nauseous. He has normal bowel movement in the morning. Denies any chest pain, no shortness of breath, no cough, no headaches, no blurred vision, no dizziness, no runny nose, some sore throat because of vomiting, has chronic lower extremity edema, no rash seen. ALLERGIES: PENICILLIN. PAST MEDICAL HISTORY: As mentioned above. PAST SURGICAL HISTORY: Revision CABG, laser procedure of the eyes. MEDICATIONS: The patient is on aspirin 81 mg p.o. daily, Lipitor 80 mg p.o. p.m., ciprofloxacin 500 mg p.o. daily, insulin sliding scale, Flagyl 500 mg p.o. t.i.d., Tylenol 500 mg p.o. q. 4 hours p.r.n., amlodipine 10 mg p.o. a.m., Coreg18.5mg, Benadryl 25 mg p.o. p.r.n., Lasix 80 mg p.o. p.m., Lasix 160 mg p.o. a.m., Levemir 10 units at bedtime, Imdur extended release 30 mg p.o. q.a.m., levothyroxine 25 mg p.o. q.a.m., Renvela 600 mg p.o. with snacks, Renvela 3200mg p.o. t.i.d. with meals, Flomax 0.4 mg p.o. q.p.m. FAMILY HISTORY: Significant for brother had cancer. Mother had lymphoma. Father had CT. Mother also has bypass surgery. SOCIAL HISTORY: Quite smoking in 2013. Alcohol occasional. No drug use. REVIEW OF SYMPTOMS: As per HPI. Rest of the review of symptoms negative. PHYSICAL EXAMINATION: GENERAL: The patient is alert and oriented, not in any distress, obese. VITAL SIGNS: Temperature 36.7, pulse 83, respiratory rate 18, blood pressure 159/85, oxygen 98% on room air. HEENT: No pallor, no icterus. Pupils equal, round, reactive to light. NECK: No JVD. No neck masses. No carotid bruits. CARDIOVASCULAR: S1, S2 heard, regular rate and rhythm, no murmur, no gallop. RESPIRATORY SYSTEM: Clear to auscultation bilaterally. No wheezing, no crackles. ABDOMEN: Soft, bowel sounds present. Nontender. No distention. CENTRAL NERVOUS SYSTEM: Cranial nerves II-XII grossly intact, nonfocal. EXTREMITIES: Lower extremity edema present, no erythema seen. LABORATORIES: WBC 6.2, hemoglobin 10.2, hematocrit 29.6, platelets 127. Sodium 139, potassium 3.3, chloride 104, bicarbonate 25, BUN 40, creatinine 9.3, serum glucose 201, calcium 8.1, total bilirubin 0.2, direct bilirubin 0.2, AST 28, ALT 30, alkaline phosphatase 129, lipase 118. ASSESSMENT AND PLAN: This is a 47-year-old male who presents with nausea, vomiting, and hematemesis. 1. Nausea, vomiting, and hematemesis. today. Hemoglobin is stable at 10.2. . His nausea could be from his Flagyl, which he was discharged for his colitis. Monitor H and H. We will hold 2 units of PRBCs. Consult GI for possible EGD. Monitor on the tele floor. 2. History of infectious colitis, was seen by GI last admission on cipro and flagyl for one more week on discharge . We will place him on IV Cipro and Flagyl. Plan for colonoscopy in 6 weeks by GI. 3. End-stage renal disease, on peritoneal dialysis. We will consult nephrology. 4. Diabetes. Continue using Levemir and insulin sliding scale. Monitor the blood sugars. 5. History of coronary artery disease, status post coronary artery bypass grafting. Hold aspirin. Continue Coreg, Lipitor, and Imdur. Currently asymptomatic. 6. History of hypertension. Continue amlodipine, Imdur, Coreg, and Lasix. We will monitor the blood pressure. 7. History of hyperlipidemia. Continue statin. 8. Anemia of chronic kidney disease. Currently, hemoglobin stable at 10.2. We will monitor the hemoglobin. 9. History of hypothyroidism. on Synthroid 10. History of BPH . Continue Flomax. 11. History of lung nodule, 4 mm left lower lobe. follow up as outpatient. 12. Deep venous thrombosis prophylaxis. SCDs and TEDs. DISPOSITION: Admit to tele floor. Expect discharge home and follow with family doctor. Level 1 full code. MTDD
[2018-05-12] MEDS: METRONIDAZOLE / NSS 500 MG in PREMIXED NSS 100 ML IV SCH ×2 (04:59→13:26)
[2018-05-12] MEDS: PANTOprazole INJ 40 MG in DEXTROSE 5% 100ML IV SCH ×4 (05:00→20:50)
[2018-05-12] MEDS ORDERED: CIPROFLOXACIN / D5W 400 MG in PREMIXED IN D5W 200 ML IV SCH (06:00)
[2018-05-12] MEDS: LEVOTHYROXINE 25 MCG TAB PO SCH (06:20)
[2018-05-12] MEDS: INSULIN ASPART 100 UNITS/ML 3 ML PEN SC SCH ×4 (06:21→23:55)
[2018-05-12 06:24] LABS: BASO % 0.5 %; BASO ABS # 0.03 K/uL (0-0.2); EOS % 3.5 %; EOS ABS # 0.22 K/uL (0-0.5); HEMATOCRIT 29.1 % (42-52); HEMOGLOBIN 9.9 g/dL (14.0-18.0); IG# 0.01 K/uL (0.00-0.02); LYMPH ABS # 0.95 K/uL (1.2-3.4); MEAN CELL VOLUME 87.9 fL (80-100); MEAN CORPUSCULAR HEMOGLOBIN 29.9 pg (25-34); MONO ABS # 0.63 K/uL (0.11-0.59); NEUT % 70.8 %; NEUT ABS # 4.48 K/uL (1.4-6.5); PLATELET COUNT 121 K/uL (130-400); RED CELL DISTRIBUTION WIDTH CV 13.3 % (11.5-14.5); RED CELL DISTRIBUTION WIDTH SD 42.6 fL (36.4-46.3); WHITE BLOOD COUNT 6.32 K/uL (4.8-10.8)
[2018-05-12] MEDS: SEVELAMER HYDROCH 800 MG TAB PO SCH ×3 (08:00→16:40)
[2018-05-12] MEDS: FUROSEMIDE 80 MG TAB PO SCH (08:37)
[2018-05-12] MEDS: ISOSORBIDE MONONITRATE 30 MG TABCR PO SCH (08:37)
[2018-05-12] MEDS: CARVEDILOL 6.25 MG TAB PO SCH (08:38)
[2018-05-12] MEDS: AMLODIPINE BESYLATE 5 MG TAB PO SCH (08:39)
[2018-05-12 12:15] LABS: HEMATOCRIT 27.1 % (42-52); HEMOGLOBIN 9.4 g/dL (14.0-18.0)
--- NOTE | 2018-05-12 12:50 | Gastrointestinal Consultation ---
Gastrointestinal Consultation Date of Consultation: May 12, 2018 Attending Physician: Mansoor Consulting Physician: Jeferson Reason for Consultation: Hematemesis History of Present Illness Patient is a 47 year old male ESRD on dialysis pt, also with a hx of CAD, CABG, DM with neuropathy, obesity who presented to the ED yesterday for hematemesis. He also had a recent admission for abdominal pain and proctitis and was discharged on Cipro/Flagyl. Yesterday, he presented to the ED for nausea, vomiting with some blood in the emesis. He reports that symptoms began last week, while hospitalized here for mild colitis after starting Cipro/Flagyl. Nausea continued after discharge and he experienced several episodes of vomiting beginning on Friday, which resolved on arrival here. During the last few episodes of vomiting, he brought up blood tinged fluid but denies any significant amt of blood in emesis. On arrival, Hb 10.2, this morning 9.9 and he did not receive any blood products. He has not had any further emesis and has not had any BMs since arrival. He has remained hemodynamically stable and is actually a bit hypertensive. Past Medical/Surgical History Medical Problems: (1) Anemia Status: Acute (2) Bilateral leg pain Status: Acute (3) CAD (coronary artery disease) Status: Acute (4) Chronic kidney disease Status: Acute (5) Colitis Status: Acute (6) Diabetes Status: Acute (7) Dyspnea Status: Acute (8) Dyspnea on exertion Status: Acute (9) End stage renal disease Status: Acute (10) Hypermagnesemia Status: Acute (11) Hypothermia Status: Acute (12) LLQ abdominal pain Status: Acute (13) Lower extremity edema Status: Acute (14) Pneumoperitoneum Status: Acute (15) Thrombocytopenia Status: Chronic (16) Upper abdominal pain Status: Acute (17) Upper GI bleed Status: Acute (18) Yeast UTI Status: Acute Family History Cancer Diabetes mellitus Heart disease Hypertension Kidney disease Kidney stones Social History Smoking Status: Never Smoker Alcohol Use: none Drug Use: none Marital Status: single Housing Status: lives with family Occupation Status: employed Allergies Coded Allergies: Penicillins (Verified Allergy, Severe, ANAPHYLAXIS, 05/12/18) Current Medications Home Meds and Scripts Medications Dose Route/Sig Max Daily Dose Days Date Category Dose Instructions Flagyl (Metronidazole) 500 Mg Tab 500 Mg PO TID 7 05/08/18 Rx Ciprofloxacin HCl (Ciprofloxacin) 500 Mg Tab 1 Tab PO DAILY 7 05/08/18 Rx Levemir Flextouch (Insulin Detemir) 100 Unit/Ml Inj 10 Units SC HS 04/25/18 Reported Amlodipine Besylate 10 Mg Tab 10 Mg PO QAM 04/25/18 Reported Tamsulosin HCl 0.4 Mg Cap 0.4 Mg PO QPM 04/25/18 Reported Novolog (Insulin Aspart) 100 Units/Ml Inj 1 Dose SC AC 04/25/18 Reported COVERAGE DIRECTED BY SLIDING SCALE Renvela (Sevelamer Carbonate) 800 Mg Tab 1,600 Mg PO UD 04/25/18 Reported TAKE 2 TABLETS WITH SNACKS Lasix (Furosemide) 80 Mg Tab 80 Mg PO QPM 03/30/18 Reported Imdur Ext Rel (Isosorbide Mononitrate) 30 Mg Tabcr 30 Mg PO QAM 11/09/17 Reported Lasix (Furosemide) 80 Mg Tab 160 Mg PO QAM 02/03/17 Reported Carvedilol 12.5 Mg Tab 18.75 Mg PO QAM 12/23/16 Reported TAKE 1 1/2 TABLETS A DAY Renvela (Sevelamer Carbonate) 800 Mg Tab 3,200 Mg PO TIDM 08/23/16 Reported TAKE 4 TABLETS WIH MEALS Tylenol (Acetaminophen) 500 Mg Tab 500 Mg PO Q4H PRN 04/23/16 Reported Benadryl Allergy (Diphenhydramine Hcl) 25 Mg Tab 25 Mg PO UD PRN 04/23/16 Reported TAKE PER PACKAGE DIRECTIONS Levothyroxine Sodium 25 Mcg Tab 25 Mcg PO QAM 11/02/15 Reported Aspirin Ec (Aspirin) 81 Mg Tab 81 Mg PO QAM 01/12/14 Reported Lipitor (Atorvastatin Calcium) 80 Mg Tab 80 Mg PO QPM 01/12/14 Reported Physical Exam Date Time Temp Pulse Resp B/P (MAP) Pulse Ox O2 Delivery O2 Flow Rate FiO2 05/12/18 07:38 37.0 82 18 156/90 (112) 98 Room Air 05/12/18 05:00 Room Air 05/12/18 03:25 36.7 75 17 150/89 100 Room Air 05/12/18 02:58 80 17 145/88 100 05/12/18 02:49 80 17 145/88 100 Room Air 05/12/18 01:23 83 18 159/85 98 Room Air 05/11/18 23:54 84 05/11/18 23:47 36.7 85 18 165/97 100 Room Air General Appearance: no apparent distress, + obese Neck: no JVD Respiratory/Chest: lungs clear Cardiovascular: regular rate, rhythm, no JVD, no murmur Abdomen: non tender, soft Extremities: + pedal edema (bilat lower) Neurologic/Psych: alert, normal mood/affect, oriented x 3 Skin: no jaundice Laboratory Results Last 24 Hours Test 05/12/18 00:13 05/12/18 05:20 05/12/18 06:03 05/12/18 06:12 White Blood Count 6.28 K/uL 6.32 K/uL Red Blood Count 3.39 M/uL 3.31 M/uL Hemoglobin 10.2 g/dL 9.9 g/dL Hematocrit 29.6 % 29.1 % Mean Corpuscular Volume 87.3 fL 87.9 fL Mean Corpuscular Hemoglobin 30.1 pg 29.9 pg Mean Corpuscular Hemoglobin Concent 34.5 g/dl 34.0 g/dl Platelet Count 127 K/uL 121 K/uL Mean Platelet Volume 9.3 fL 9.0 fL Neutrophils (%) (Auto) 74.6 % 70.8 % Lymphocytes (%) (Auto) 14.2 % 15.0 % Monocytes (%) (Auto) 7.2 % 10.0 % Eosinophils (%) (Auto) 3.5 % 3.5 % Basophils (%) (Auto) 0.3 % 0.5 % Neutrophils # (Auto) 4.69 K/uL 4.48 K/uL Lymphocytes # (Auto) 0.89 K/uL 0.95 K/uL Monocytes # (Auto) 0.45 K/uL 0.63 K/uL Eosinophils # (Auto) 0.22 K/uL 0.22 K/uL Basophils # (Auto) 0.02 K/uL 0.03 K/uL RDW Standard Deviation 41.4 fL 42.6 fL RDW Coefficient of Variation 13.1 % 13.3 % Immature Granulocyte % (Auto) 0.2 % 0.2 % Immature Granulocyte # (Auto) 0.01 K/uL 0.01 K/uL Sodium Level 139 mmol/L Potassium Level 3.3 mmol/L Chloride Level 104 mmol/L Carbon Dioxide Level 25 mmol/L Anion Gap 10.0 mmol/L Blood Urea Nitrogen 40 mg/dl Creatinine 9.39 mg/dl Est Creatinine Clear Calc Drug Dose 12.2 ml/min Estimated GFR () 7.0 Estimated GFR (Non- 6.0 BUN/Creatinine Ratio 4.2 Random Glucose 201 mg/dl Calcium Level 8.1 mg/dl Total Bilirubin 0.5 mg/dl Direct Bilirubin 0.2 mg/dl Aspartate Amino Transf (AST/SGOT) 28 U/L Alanine Aminotransferase (ALT/SGPT) 30 U/L Alkaline Phosphatase 129 U/L Total Protein 5.7 gm/dl Albumin 2.2 gm/dl Lipase 118 U/L Urine Color YELLOW Urine Appearance CLEAR Urine pH 7.5 Urine Specific [place] 1.015 Urine Protein 2+ Urine Glucose (UA) 2+ Urine Ketones NEG Urine Occult Blood 1+ Urine Nitrite NEG Urine Bilirubin NEG Urine Urobilinogen NEG Urine Leukocyte Esterase NEG Urine WBC (Auto) 1-5 /hpf Urine RBC (Auto) 0-4 /hpf Urine Hyaline Casts (Auto) 1-5 /lpf Urine Epithelial Cells (Auto) 5-10 /lpf Urine Bacteria (Auto) NEG Bedside Glucose 148 mg/dl Non contrast CT abd/pelvis during PRIOR ADMISSION on 04/25/18: 1. Peritoneal dialysis catheter redemonstrated with small volume of abdominal pelvic ascites likely related to normally functioning catheter. 2. Moderate amount of pneumoperitoneum is suspicious for perforated viscus. Correlate clinically to exclude recent abdominal intervention which could alternatively be a cause for the pneumoperitoneum. 3. Mild wall thickening of the colon extends from the distal transverse colon through the rectum suggesting partial distention or acute colitis with proctitis. The degree of rectal wall thickening has mildly improved from comparison study 04/25/2018. 4. Cholelithiasis without CT evidence of acute cholecystitis. 5. Splenomegaly. 6. Additional findings as above. Impression Patient is a 47 year old male with nausea, vomiting while on Cipro/flagyl for non specific bowel wall thickening (possible ischemic colitis) and pneumatosis ( "?related to peritoneal catheter). Current nausea, vomiting most likely a side effect of the metronidazole. Plan 1. Would DC antibiotics as has completed a week. 2. Nausea/vomiting seen to have resolved, would resume regular diet. 3. Watch Hb/Hct, but at this time, no significant GI bleed and no ongoing upper GI symptoms so would defer endoscopy. I have personally seen and examined the patient with IAM Truong. Her note reflects my exam and findings. I agree with her impression and plan. Stop antibiotics. Diet trial. Williams Govea M.D.
[2018-05-12] MEDS ORDERED: FUROSEMIDE 80 MG TAB PO SCH (17:00)
--- NOTE | 2018-05-12 17:47 | NEPHROLOGY CONSULTATION ---
DATE OF CONSULTATION: 05/12/2018 NEPHROLOGY CONSULTATION NOTE REASON FOR CONSULT: Peritoneal dialysis. Patient admitted with nausea, vomiting and hematemesis. HISTORY OF PRESENT ILLNESS: Patient is a 47-year-old male with past medical history significant for longstanding type 2 diabetes, coronary artery disease status post CABG, end-stage renal disease on chronic peritoneal dialysis as well as multiple other medical problems who presented to the hospital yesterday with nausea, vomiting and hematemesis. He was discharged from the hospital just 3 days prior to this new presentation. The previous admission was for abdominal pain and he was found to have colitis with proctitis and he was treated with IV antibiotics and discharged a couple of days ago with Cipro and Flagyl. Two days after the hospital discharge he started having nausea and vomiting which was initially vomiting bilious stuff, but in the evening he vomited a couple of drops of blood after which he presented to the Emergency Department. Even in the Emergency Department, he did have coffee-ground emesis after which patient was admitted. As of now, hemoglobin does not seem to have dropped and it is still 9.4. He has not required any blood transfusion yet. He is starting to feel better. He is currently getting IV Cipro and IV Flagyl. Denies any diarrhea, chest pain, shortness of breath, orthopnea. ALLERGIES: PENICILLIN. PAST MEDICAL HISTORY: Reviewed and as above. PAST SURGICAL HISTORY: Reviewed and as above. MEDICATIONS: At home was reviewed in detail and is as per the reconciliation list. FAMILY HISTORY: Significant for brother with cancer. Mother had lymphoma. Father had [place]. Mother also had bypass surgery. SOCIAL HISTORY: Quit smoking in 2013. Occasional alcohol. No drug use. REVIEW OF SYSTEMS: As per HPI. Unless stated otherwise in HPI, 12 systems reviewed and negative. PHYSICAL EXAMINATION: GENERAL: Patient is alert and oriented. He is not in any distress. He is obese. VITAL SIGNS: Blood pressure 128/77, 98% on room air, pulse rate 75 per minute, temperature 37 degree Celsius, respiratory rate 18 per minute. HEENT: Mucous membranes moist. NECK: Supple. No jugular venous distention. CHEST: Bilateral clear to auscultation. ABDOMEN: Soft, nontender. PD exit site clean and dry. CARDIOVASCULAR: S1 and S2, regular. CENTRAL NERVOUS SYSTEMS: Normal speech. Awake, alert, oriented x 3, nonfocal. EXTREMITIES: Shows trace lower extremity edema, stable. LABORATORY TESTS: Hemoglobin 10.2, WBC count 6.28. Sodium 139, potassium 3.3, BUN 14, creatinine 9.39, glucose 140, calcium 8.1. PD fluid analyzed. Total WBC count 220 with 92% mononuclear WBCs and only 7% polynuclear WBCs, RBCs less than 3000. ASSESSMENT AND PLAN: A 47-year-old male who presents with nausea, vomiting and hematemesis. I have been consulted for dialysis management: 1. End-stage renal disease: Patient is a chronic peritoneal dialysis patient and will continue to do that as long as he is in the hospital. He will get 12 hour of peritoneal dialysis through a cycler tonight. He normally uses a mixture of 4.25% and 2.5% and will do the same. The big question was whether he has any peritonitis related with peritoneal dialysis. However, clinically as well as based on the cell count with differential, it does not look like he has peritonitis related with peritoneal dialysis. The peritoneal dialysis fluid drainage was totally clear. At this time, he is getting antibiotics for diverticulitis, which will be continued. He has had peritoneal dialysis fluids analyzed 2 times now and the previous culture was also negative with negative for Gram stain. To a large extent ciprofloxacin alone can essentially cover for culture negative peritonitis even if it is present. ANNIED
[2018-05-12] MEDS ORDERED: INSULIN DETEMIR FLEXPEN/FLEX TOUCH 100 UNITS/ML 3ML SC SCH (21:00)
[2018-05-12] MEDS ORDERED: TAMSULOSIN HCL 0.4 MG CAP PO SCH (21:00)
[2018-05-12] MEDS ORDERED: NURSING VERBAL MED ORDER ONE (22:00)
--- NOTE | 2018-05-12 22:02 | Progress Note ---
Progress Note Date of Service May 12, 2018. Progress Note States he feels improved today Nausea resolving No abdominal pain No melena or hematochezia Clear breath sounds bilaterally Abdomen nondistended normal bowel sounds nontender GI consulted with recommendations Nephrology consulted for PD Chel Max MD
[2018-05-13] VITALS (8 sets, daily range): BP systolic 145–168; BP diastolic 75–90; PULSE 61–83; TEMP 36.7–36.8; O2SAT 95–99
[2018-05-13] MEDS: PANTOprazole INJ 40 MG in DEXTROSE 5% 100ML IV SCH ×3 (01:15→11:10)
[2018-05-13] MEDS: LEVOTHYROXINE 25 MCG TAB PO SCH (06:07)
[2018-05-13 06:41] LABS: BASO % 0.2 %; BASO ABS # 0.01 K/uL (0-0.2); EOS % 4.7 %; EOS ABS # 0.24 K/uL (0-0.5); HEMATOCRIT 27.6 % (42-52); HEMOGLOBIN 9.4 g/dL (14.0-18.0); IG# 0.01 K/uL (0.00-0.02); LYMPH % 13.6 %; MEAN CELL VOLUME 87.3 fL (80-100); MEAN CORPUSCULAR HEMOGLOBIN 29.7 pg (25-34); MEAN CORPUSCULAR HGB CONC 34.1 g/dl (32-36); MEAN PLATELET VOLUME 9.2 fL (7.4-10.4); MONO % 11.3 %; MONO ABS # 0.58 K/uL (0.11-0.59); NEUT ABS # 3.59 K/uL (1.4-6.5); PLATELET COUNT 104 K/uL (130-400); RED CELL DISTRIBUTION WIDTH CV 13.2 % (11.5-14.5); RED CELL DISTRIBUTION WIDTH SD 42.1 fL (36.4-46.3); WHITE BLOOD COUNT 5.13 K/uL (4.8-10.8)
[2018-05-13 07:26] LABS: CALCIUM 7.7 mg/dl (8.5-10.1); CREATININE 9.63 mg/dl (0.60-1.40); POTASSIUM 3.5 mmol/L (3.5-5.1)
[2018-05-13] MEDS: CARVEDILOL 6.25 MG TAB PO SCH (08:24)
[2018-05-13] MEDS: SEVELAMER HYDROCH 800 MG TAB PO SCH ×2 (08:24→13:07)
[2018-05-13] MEDS: AMLODIPINE BESYLATE 5 MG TAB PO SCH (08:24)
[2018-05-13] MEDS: FUROSEMIDE 80 MG TAB PO SCH (08:25)
[2018-05-13] MEDS: ISOSORBIDE MONONITRATE 30 MG TABCR PO SCH (08:25)
[2018-05-13] MEDS: INSULIN ASPART 100 UNITS/ML 3 ML PEN SC SCH ×2 (09:18→13:09)
--- NOTE | 2018-05-13 10:58 | Gastroenterology Progress Note ---
Progress Note Date of Service: May 13, 2018 Subjective Pt evaluation today including: conversation w/ patient, physical exam, chart review, lab review, review of studies, review of inpatient medication list Mr. Sebas Tapia is a 47 yr old male with ESRD on dilaysis who experienced constipation then diarrhea and CT here on 05/06 with bowel wall thickening of the transverse and descending colon. Treated with Cipro/Flagyl. Had nausea/ vomiting on these meds. After several episodes of vomiting had a slight bright red blood with the emesis on Friday and presented to the ED. Hb on arrival 10.2, today 9.4. Did not receive any blood products. Review of Systems ENT: No hearing loss Respiratory: No cough Cardiac: No chest pain Abdomen: + see HPI, + nausea (resolved), + vomiting (resolved), + diarrhea ( resolved), + GI bleeding (non since arrival), No pain Male : No dysuria Neuro: No memory loss Psych: No depression symptoms Heme: No abnormal bleeding/bruising Endo: No fatigue Skin: No rash Medications Current Inpatient Medications Medications (Trade) Dose Ordered Sig/Mitchell Route Start Time Stop Time Status Last Admin Dose Admin Sodium Chloride 1,000 ml @ 50 mls/hr Q20H IV 05/12/18 04:00 06/11/18 03:59 05/12/18 23:57 50 MLS/HR Al Hydrox/Mg Hydrox/Simethicone (Maalox Max Susp) 15 ml Q4H PRN PO 05/12/18 02:45 06/11/18 02:44 Ondansetron HCl (Zofran Inj) 4 mg Q6H PRN IV 05/12/18 02:45 06/11/18 02:44 Nitroglycerin (Nitrostat Tab) 0.4 mg UD PRN SL 05/12/18 02:45 06/11/18 02:44 Carvedilol (Coreg Tab) 18.75 mg QAM PO 05/12/18 09:00 06/11/18 08:59 05/13/18 08:24 18.75 MG Furosemide (Lasix Tab) 80 mg 1700 PO 05/12/18 17:00 06/11/18 16:59 05/12/18 16:40 80 MG Furosemide (Lasix Tab) 160 mg QAM PO 05/12/18 09:00 06/11/18 08:59 05/13/18 08:25 160 MG Insulin Detemir (Levemir Flexpen/ FlexTouch) 10 units HS SC 05/12/18 21:00 06/11/18 20:59 05/12/18 22:33 10 UNITS Isosorbide Mononitrate (Imdur Ext Rel Tab) 30 mg QAM PO 05/12/18 09:00 06/11/18 08:59 05/13/18 08:25 30 MG Levothyroxine Sodium (Synthroid Tab) 25 mcg DAILYBB PO 05/12/18 06:30 06/11/18 06:59 05/13/18 06:07 25 MCG Tamsulosin HCl (Flomax Cap) 0.4 mg QPM PO 05/12/18 21:00 06/11/18 20:59 05/12/18 20:53 0.4 MG Amlodipine Besylate (Norvasc Tab) 10 mg QAM PO 05/12/18 09:00 06/11/18 08:59 05/13/18 08:24 10 MG Diphenhydramine HCl (Benadryl Cap) 25 mg UD PRN PO 05/12/18 02:45 06/11/18 02:44 Sevelamer HCl (Renagel Tab) 1,600 mg UD PRN PO 05/12/18 02:45 06/11/18 02:44 Sevelamer HCl (Renagel Tab) 3,200 mg TIDM PO 05/12/18 08:00 06/11/18 07:59 05/13/18 08:24 3,200 MG Glucose (Glucose 40% Gel) 15-30 GRAMS 15 GRAMS... UD PRN PO 05/12/18 03:00 06/11/18 02:59 Glucose (Glucose Chew Tab) 4-8 Tablets 4 Tabl... UD PRN PO 05/12/18 03:00 06/11/18 02:59 Dextrose (Dextrose 50% 50ML Syringe) 25-50ML 25ML FOR ... UD PRN IV 05/12/18 03:00 06/11/18 02:59 Glucagon (Glucagon Inj) 1 mg UD PRN IM 05/12/18 03:00 06/11/18 02:59 Carbohydrates (Carbohydrates For Hypoglycemia) 15-30 GRAMS 15 grams if BSG 54-69... UD PRN PO 05/12/18 03:00 06/11/18 02:59 Acetaminophen (Tylenol Tab) 500 mg Q4H PRN PO 05/12/18 03:00 06/11/18 02:59 Pantoprazole Sodium 40 mg/ Dextrose 100 ml @ 20 mls/hr Q5H IV 05/12/18 05:00 06/11/18 04:59 05/13/18 06:07 20 MLS/HR Insulin Aspart (novoLOG ASPART) SLIDING SCALE G... ACHS SC 05/13/18 00:00 06/12/18 00:00 05/13/18 09:18 6 UNITS Objective Vital Signs Date Time Temp Pulse Resp B/P (MAP) Pulse Ox O2 Delivery O2 Flow Rate FiO2 05/13/18 09:00 97 Room Air 05/13/18 08:31 36.7 76 16 161/75 (103) 05/13/18 08:20 81 161/84 (109) 05/13/18 07:24 36.7 79 18 168/90 (116) 96 05/13/18 04:00 36.7 83 20 159/89 (112) 99 Room Air 05/13/18 00:30 Room Air 05/13/18 00:30 36.8 79 20 152/78 (102) 96 Room Air 05/12/18 20:13 36.9 85 18 158/81 (106) 97 Room Air 05/12/18 19:37 36.7 80 166/90 (115) 05/12/18 16:13 36.6 80 18 130/74 (92) 98 Room Air 05/12/18 16:00 Room Air 05/12/18 11:05 37.0 75 18 128/77 (94) 98 Room Air Physical Exam General Appearance: no apparent distress, + obese Neck: no JVD Respiratory/Chest: lungs clear Cardiovascular: regular rate, rhythm, no JVD, no murmur Abdomen: soft, + pertinent finding (peritoneal cath in place) Extremities: + pedal edema (bilat, 1/2+) Neurologic/Psych: alert, normal mood/affect, oriented x 3 Skin: normal color, no jaundice Laboratory Results Last 24 Hours Test 05/12/18 11:17 05/12/18 12:02 05/12/18 18:09 05/12/18 21:54 Bedside Glucose 140 mg/dl 136 mg/dl 216 mg/dl Hemoglobin 9.4 g/dL Hematocrit 27.1 % Test 05/12/18 23:35 05/13/18 06:17 05/13/18 07:48 Bedside Glucose 274 mg/dl 213 mg/dl White Blood Count 5.13 K/uL Red Blood Count 3.16 M/uL Hemoglobin 9.4 g/dL Hematocrit 27.6 % Mean Corpuscular Volume 87.3 fL Mean Corpuscular Hemoglobin 29.7 pg Mean Corpuscular Hemoglobin Concent 34.1 g/dl Platelet Count 104 K/uL Mean Platelet Volume 9.2 fL Neutrophils (%) (Auto) 70.0 % Lymphocytes (%) (Auto) 13.6 % Monocytes (%) (Auto) 11.3 % Eosinophils (%) (Auto) 4.7 % Basophils (%) (Auto) 0.2 % Neutrophils # (Auto) 3.59 K/uL Lymphocytes # (Auto) 0.70 K/uL Monocytes # (Auto) 0.58 K/uL Eosinophils # (Auto) 0.24 K/uL Basophils # (Auto) 0.01 K/uL RDW Standard Deviation 42.1 fL RDW Coefficient of Variation 13.2 % Immature Granulocyte % (Auto) 0.2 % Immature Granulocyte # (Auto) 0.01 K/uL Sodium Level 138 mmol/L Potassium Level 3.5 mmol/L Chloride Level 106 mmol/L Carbon Dioxide Level 26 mmol/L Anion Gap 6.0 mmol/L Blood Urea Nitrogen 40 mg/dl Creatinine 9.63 mg/dl Est Creatinine Clear Calc Drug Dose 11.7 ml/min Estimated GFR () 6.8 Estimated GFR (Non- 5.9 BUN/Creatinine Ratio 4.1 Random Glucose 201 mg/dl Calcium Level 7.7 mg/dl Magnesium Level 2.1 mg/dl Chemistry Specimen Hemolysis Assessment and Plan Mr. Tapia is a 47 yr old male who experienced nausea and multiple episodes of vomiting on metronidazole on Friday. Symptoms have resolved. Hb is stable. Plan: 1. DC'ed Cipro/flagyl yesterday. 2. Tolerating renal diet. 3. No plans for endoscopy. 4. GI will sign off. ATTESTATION: I have performed a history and physical examination of this patient and reviewed the electronic record. Specifically on history nausea has fully resolved with discontinuation of metronidazole. I have discussed the case with IAM Briceño. The above note reflects my findings, conclusions, and recommendations. Hermilo Aquino MD
--- NOTE | 2018-05-13 11:19 | PROGRESS NOTE ---
DATE: 05/13/2018 SUBJECTIVE: Overnight, no new issues. Nausea and vomiting seems to have subsided. He does not have any belly pain, diarrhea at this time. He did have overnight peritoneal dialysis through a cycler and about 250 mL of ultrafiltration was achieved. OBJECTIVE: VITAL SIGNS: Blood pressure 161/75, pulse of 76 per minute, temperature 36.7, 96% on room air. HEENT: Mucous membranes moist. NECK: Supple. No jugular venous distention. CHEST: Bilateral clear to auscultation. CARDIOVASCULAR: S1 and S2, regular. ABDOMEN: Soft, nontender, obese. EXTREMITIES: Exit site of the peritoneal dialysis catheter looks clean and dry. LABORATORY TESTS: From this morning, hemoglobin 9.4, WBC count 5.13, platelet count 104. Sodium 135, potassium 3.5, BUN 40, creatinine 9.63. Gram stain and culture of the PD fluid drained yesterday is still negative. No organism seen on the Gram stain. ASSESSMENT AND PLAN: A 47-year-old male who presented with nausea, vomiting, and hematemesis. 1. End-stage renal disease. The patient is a chronic peritoneal dialysis patient and will continue to do that as long as he is in the hospital. He will get 12 hours of peritoneal dialysis through a cycler tonight if he is still in the hospital. He normally does the 4.25% and 2.5% and will do the same. It is somewhat concerning that despite using 4.25%, the amount of ultrafiltration he is achieving is pretty low. As of now, he still has good residual renal function, which is keeping him even, but in the future it will be a bigger problem. The big question was whether he has any peritonitis related to peritoneal dialysis. Based on the clinical exam, cell count, Gram stain, and culture done twice, he does not have peritonitis related with peritoneal dialysis. The slight amount of cell count is related with diverticulitis for which he is getting ciprofloxacin and Flagyl, which we will continue. ANNIED
--- NOTE | 2018-05-13 14:13 | Progress Note ---
Subjective Date of Service: May 13, 2018. Subjective Pt evaluation today including: conversation w/ patient, physical exam, lab review, review of studies, review of inpatient medication list Saw/examined the patient in room 289 He's doing well, tolerated his breakfast and lunch with no issues His nausea has improved as well Denies any other issues to note and is eager to go home Problem List Medical Problems: (1) Anemia Status: Acute (2) Bilateral leg pain Status: Acute (3) CAD (coronary artery disease) Status: Acute (4) Chronic kidney disease Status: Acute (5) Colitis Status: Acute (6) Diabetes Status: Acute (7) Dyspnea Status: Acute (8) Dyspnea on exertion Status: Acute (9) End stage renal disease Status: Acute (10) Hypermagnesemia Status: Acute (11) Hypothermia Status: Acute (12) LLQ abdominal pain Status: Acute (13) Lower extremity edema Status: Acute (14) Pneumoperitoneum Status: Acute (15) Thrombocytopenia Status: Chronic (16) Upper abdominal pain Status: Acute (17) Upper GI bleed Status: Acute (18) Yeast UTI Status: Acute Review of Systems Constitutional: No fever, No chills Respiratory: No shortness of breath Cardiac: No chest pain Abdomen: No pain, No nausea, No vomiting, No diarrhea, No constipation, No GI bleeding Medications Current Inpatient Medications Medications (Trade) Dose Ordered Sig/Mitchell Route Start Time Stop Time Status Last Admin Dose Admin Sodium Chloride 1,000 ml @ 50 mls/hr Q20H IV 05/12/18 04:00 06/11/18 03:59 05/12/18 23:57 50 MLS/HR Al Hydrox/Mg Hydrox/Simethicone (Maalox Max Susp) 15 ml Q4H PRN PO 05/12/18 02:45 06/11/18 02:44 Ondansetron HCl (Zofran Inj) 4 mg Q6H PRN IV 05/12/18 02:45 06/11/18 02:44 Nitroglycerin (Nitrostat Tab) 0.4 mg UD PRN SL 05/12/18 02:45 06/11/18 02:44 Carvedilol (Coreg Tab) 18.75 mg QAM PO 05/12/18 09:00 06/11/18 08:59 05/13/18 08:24 18.75 MG Furosemide (Lasix Tab) 80 mg 1700 PO 05/12/18 17:00 06/11/18 16:59 05/12/18 16:40 80 MG Furosemide (Lasix Tab) 160 mg QAM PO 05/12/18 09:00 06/11/18 08:59 05/13/18 08:25 160 MG Insulin Detemir (Levemir Flexpen/ FlexTouch) 10 units HS SC 05/12/18 21:00 06/11/18 20:59 05/12/18 22:33 10 UNITS Isosorbide Mononitrate (Imdur Ext Rel Tab) 30 mg QAM PO 05/12/18 09:00 06/11/18 08:59 05/13/18 08:25 30 MG Levothyroxine Sodium (Synthroid Tab) 25 mcg DAILYBB PO 05/12/18 06:30 06/11/18 06:59 05/13/18 06:07 25 MCG Tamsulosin HCl (Flomax Cap) 0.4 mg QPM PO 05/12/18 21:00 06/11/18 20:59 05/12/18 20:53 0.4 MG Amlodipine Besylate (Norvasc Tab) 10 mg QAM PO 05/12/18 09:00 06/11/18 08:59 05/13/18 08:24 10 MG Diphenhydramine HCl (Benadryl Cap) 25 mg UD PRN PO 05/12/18 02:45 06/11/18 02:44 Sevelamer HCl (Renagel Tab) 1,600 mg UD PRN PO 05/12/18 02:45 06/11/18 02:44 Sevelamer HCl (Renagel Tab) 3,200 mg TIDM PO 05/12/18 08:00 06/11/18 07:59 05/13/18 13:07 3,200 MG Glucose (Glucose 40% Gel) 15-30 GRAMS 15 GRAMS... UD PRN PO 05/12/18 03:00 06/11/18 02:59 Glucose (Glucose Chew Tab) 4-8 Tablets 4 Tabl... UD PRN PO 05/12/18 03:00 06/11/18 02:59 Dextrose (Dextrose 50% 50ML Syringe) 25-50ML 25ML FOR ... UD PRN IV 05/12/18 03:00 06/11/18 02:59 Glucagon (Glucagon Inj) 1 mg UD PRN IM 05/12/18 03:00 06/11/18 02:59 Carbohydrates (Carbohydrates For Hypoglycemia) 15-30 GRAMS 15 grams if BSG 54-69... UD PRN PO 05/12/18 03:00 06/11/18 02:59 Acetaminophen (Tylenol Tab) 500 mg Q4H PRN PO 05/12/18 03:00 06/11/18 02:59 Pantoprazole Sodium 40 mg/ Dextrose 100 ml @ 20 mls/hr Q5H IV 05/12/18 05:00 06/11/18 04:59 05/13/18 11:10 20 MLS/HR Insulin Aspart (novoLOG ASPART) SLIDING SCALE G... ACHS SC 05/13/18 00:00 06/12/18 00:00 05/13/18 13:09 7 UNITS Objective Vital Signs Date Time Temp Pulse Resp B/P (MAP) Pulse Ox O2 Delivery O2 Flow Rate FiO2 05/13/18 13:27 36.7 61 18 95 Room Air 05/13/18 11:33 36.7 61 18 145/80 (101) 95 05/13/18 09:00 97 Room Air 05/13/18 08:31 36.7 76 16 161/75 (103) 05/13/18 08:20 81 161/84 (109) 05/13/18 07:24 36.7 79 18 168/90 (116) 96 05/13/18 04:00 36.7 83 20 159/89 (112) 99 Room Air 05/13/18 00:30 Room Air 05/13/18 00:30 36.8 79 20 152/78 (102) 96 Room Air 05/12/18 20:13 36.9 85 18 158/81 (106) 97 Room Air 05/12/18 19:37 36.7 80 166/90 (115) 05/12/18 16:13 36.6 80 18 130/74 (92) 98 Room Air 05/12/18 16:00 Room Air Physical Exam General Appearance: no apparent distress, + obese Respiratory/Chest: chest non-tender, lungs clear, normal breath sounds, no respiratory distress, no accessory muscle use Cardiovascular: regular rate, rhythm, no edema, no murmur Extremities: normal inspection, no pedal edema Neurologic/Psychiatric: no motor/sensory deficits, alert, normal mood/affect Laboratory Results Last 24 Hours Test 05/12/18 18:09 05/12/18 21:54 05/12/18 23:35 05/13/18 06:17 Bedside Glucose 136 mg/dl 216 mg/dl 274 mg/dl White Blood Count 5.13 K/uL Red Blood Count 3.16 M/uL Hemoglobin 9.4 g/dL Hematocrit 27.6 % Mean Corpuscular Volume 87.3 fL Mean Corpuscular Hemoglobin 29.7 pg Mean Corpuscular Hemoglobin Concent 34.1 g/dl Platelet Count 104 K/uL Mean Platelet Volume 9.2 fL Neutrophils (%) (Auto) 70.0 % Lymphocytes (%) (Auto) 13.6 % Monocytes (%) (Auto) 11.3 % Eosinophils (%) (Auto) 4.7 % Basophils (%) (Auto) 0.2 % Neutrophils # (Auto) 3.59 K/uL Lymphocytes # (Auto) 0.70 K/uL Monocytes # (Auto) 0.58 K/uL Eosinophils # (Auto) 0.24 K/uL Basophils # (Auto) 0.01 K/uL RDW Standard Deviation 42.1 fL RDW Coefficient of Variation 13.2 % Immature Granulocyte % (Auto) 0.2 % Immature Granulocyte # (Auto) 0.01 K/uL Sodium Level 138 mmol/L Potassium Level 3.5 mmol/L Chloride Level 106 mmol/L Carbon Dioxide Level 26 mmol/L Anion Gap 6.0 mmol/L Blood Urea Nitrogen 40 mg/dl Creatinine 9.63 mg/dl Est Creatinine Clear Calc Drug Dose 11.7 ml/min Estimated GFR () 6.8 Estimated GFR (Non- 5.9 BUN/Creatinine Ratio 4.1 Random Glucose 201 mg/dl Calcium Level 7.7 mg/dl Magnesium Level 2.1 mg/dl Chemistry Specimen Hemolysis Test 05/13/18 07:48 05/13/18 11:21 Bedside Glucose 213 mg/dl 153 mg/dl Assessment and Plan This is a 47 year old male with a past medical history of ESRD on peritoneal dialysis, DM2, CAD s/p CABG, thrombocytopenia, hypothyroidism - recent admission for colitis and returned due to nausea/vomiting and mild hematemesis Hematemesis - likely from retching, related to nausea/vomiting secondary to abx. - now off of antibiotics - tolerated diet (ate a regular breakfast and lunch on 05/13) - H/H stable no more vomiting, no more hematemesis - will d/c home today; outpatient CBC - outpatient GI follow-up in 6 weeks for colonoscopy; no planned EGD ESRD on Peritoneal Dialysis - not likely to have peritonitis related to PD - off of abx. CAD s/p CABG - no acute issues - restart aspirin; continue Coreg, Lipitor, Imdur HTN - continue Amlodipine, Imdur, Coreg and Lasix Anemia of CKD - H/H around 9-10, monitor CBC as outpatient Hypothyroidism - continue Synthroid BPH - continue Flomax Hx. of Lung Nodule - monitor as outpatient DVT ppx - SCDs FULL CODE
--- NOTE | 2018-05-13 14:24 | Discharge Instructions ---
Discharge Instructions Date of Service May 13, 2018. Admission Reason for Admission: Hematemesis Discharge Discharge Diagnosis / Problem: Hematemesis, nausea/vomiting Discharge Goals Goal(s): Decrease discomfort, Improve function, Diagnostic testing, Therapeutic intervention Activity Recommendations Activity Limitations: resume your previous activity . Instructions / Follow-Up Instructions / Follow-Up Please follow-up with Dr. Lyons on May 19 at 11:05AM * Follow-up with GI in 6 weeks for a colonoscopy Current Hospital Diet Patient's current hospital diet: Renal Diet, Diabetes Type 2 Diet Discharge Diet Recommended Diet: Diabetes Type 2 Diet, Renal Diet Pending Studies Studies pending at discharge: no Laboratory Results Hemoglobin A1c Test 03/30/18 01:10 Range/Units Estimated Average Glucose 140 mg/dl Hemoglobin A1c 6.5 H 4.5-5.6 % Medical Emergencies . Who to Call and When: Medical Emergencies: If at any time you feel your situation is an emergency, please call 911 immediately. . Non-Emergent Contact Non-Emergency issues call your: Primary Care Provider, Manager [employer] . . "Provider Documentation" section prepared by Aundrea Darnell. .
[2018-05-13] MEDS ORDERED: ONDA8TAB62 SL (14:25)
[2018-05-13] MEDS ORDERED: PANT40TA2 PO (14:25)
--- NOTE | 2018-05-13 14:40 | Discharge Summary ---
Discharge Summary Date of Service May 13, 2018. Discharge Summary Admission Date: May 12, 2018 at 02:38 Discharge Date: May 13, 2018 Discharge Disposition: Home Principal Diagnosis: Hematemesis ESRD on Peritoneal Dialysis CAD s/p CABG HTN Anemia of CKD Hypothyroidism BPH Hx. of Lung Nodule Medication Reconciliation New Medications: Ondansetron Odt (Zofran Odt) 8 Mg Soltab 8 MG SL Q6H PRN for Nausea for 10 Days, #40 TAB Pantoprazole (Pantoprazole Sodium) 40 Mg Tab 40 MG PO QAM for 30 Days, #30 TAB Continued Medications: Acetaminophen (Tylenol) 500 Mg Tab 500 MG PO Q4H PRN for Pain Amlodipine Besylate (Amlodipine Besylate) 10 Mg Tab 10 MG PO QAM Aspirin (Aspirin Ec) 81 Mg Tab 81 MG PO QAM Atorvastatin (Lipitor) 80 Mg Tab 80 MG PO QPM Carvedilol (Carvedilol) 12.5 Mg Tab 18.75 MG PO QAM TAKE 1 1/2 TABLETS A DAY Diphenhydramine Hcl (Benadryl Allergy) 25 Mg Tab 25 MG PO UD PRN for ALLERGIC REACTION TAKE PER PACKAGE DIRECTIONS Furosemide (Lasix) 80 Mg Tab 160 MG PO QAM, TAB Furosemide (Lasix) 80 Mg Tab 80 MG PO QPM, TAB Insulin Aspart (Novolog) 100 Units/Ml Inj 1 DOSE SC AC COVERAGE DIRECTED BY SLIDING SCALE Insulin Detemir (Levemir Flextouch) 100 Unit/Ml Inj 10 UNITS SC HS Isosorbide Mononitrate Ext Rel (Imdur Ext Rel) 30 Mg Tabcr 30 MG PO QAM, TAB Levothyroxine Sodium (Levothyroxine Sodium) 25 Mcg Tab 25 MCG PO QAM Sevelamer Carbonate (Renvela) 800 Mg Tab 3200 MG PO TIDM TAKE 4 TABLETS WIH MEALS Sevelamer Carbonate (Renvela) 800 Mg Tab 1600 MG PO UD, TAB TAKE 2 TABLETS WITH SNACKS Tamsulosin HCl (Tamsulosin HCl) 0.4 Mg Cap 0.4 MG PO QPM Discontinued Medications: Ciprofloxacin (Ciprofloxacin HCl) 500 Mg Tab 1 TAB PO DAILY for 7 Days, #7 TAB 0 Refills Metronidazole (Flagyl) 500 Mg Tab 500 MG PO TID for 7 Days, #21 TAB 0 Refills Admission Information HPI (per Admitting provider): DATE OF ADMISSION: 05/12/2018 CHIEF COMPLAINT: Hematemesis. HISTORY OF PRESENT ILLNESS: This is a 47-year-old male with past medical history significant for diabetes type 2, CAD status post CABG, end-stage renal disease on peritoneal dialysis, diabetic neuropathy, thrombocytopenia, obesity, who was recently in the hospital last week for abdominal pain and found to have colitis with proctitis and possible pneumoperitoneum, but pneumoperitoneum was thought to be from peritoneal dialysis catheter and he was treated with antibiotics and discharged a couple of days ago with Cipro and Flagyl, but the patient says since yesterday developed some nausea and vomiting, initially was vomiting bilious stuff, but in the evening of coming to the ER, he vomited a couple of drops of blood and in the ER he has some coffee-ground emesis, so we are called for admission. Currently, resting comfortably and hemodynamically stable. He has no more episodes of vomiting, but still feeling nauseous. He has normal bowel movement in the morning. Denies any chest pain, no shortness of breath, no cough, no headaches, no blurred vision, no dizziness, no runny nose, some sore throat because of vomiting, has chronic lower extremity edema, no rash seen. ALLERGIES: PENICILLIN. PAST MEDICAL HISTORY: As mentioned above. PAST SURGICAL HISTORY: Revision CABG, laser procedure of the eyes. MEDICATIONS: The patient is on aspirin 81 mg p.o. daily, Lipitor 80 mg p.o. p.m., ciprofloxacin 500 mg p.o. daily, insulin sliding scale, Flagyl 500 mg p.o. t.i.d., Tylenol 500 mg p.o. q. 4 hours p.r.n., amlodipine 10 mg p.o. a.m., Coreg18.5mg, Benadryl 25 mg p.o. p.r.n., Lasix 80 mg p.o. p.m., Lasix 160 mg p.o. a.m., Levemir 10 units at bedtime, Imdur extended release 30 mg p.o. q.a.m., levothyroxine 25 mg p.o. q.a.m., Renvela 600 mg p.o. with snacks, Renvela 3200mg p.o. t.i.d. with meals, Flomax 0.4 mg p.o. q.p.m. FAMILY HISTORY: Significant for brother had cancer. Mother had lymphoma. Father had UT. Mother also has bypass surgery. SOCIAL HISTORY: Quite smoking in 2013. Alcohol occasional. No drug use. REVIEW OF SYMPTOMS: As per HPI. Rest of the review of symptoms negative. PHYSICAL EXAMINATION: GENERAL: The patient is alert and oriented, not in any distress, obese. VITAL SIGNS: Temperature 36.7, pulse 83, respiratory rate 18, blood pressure 159/85, oxygen 98% on room air. HEENT: No pallor, no icterus. Pupils equal, round, reactive to light. NECK: No JVD. No neck masses. No carotid bruits. CARDIOVASCULAR: S1, S2 heard, regular rate and rhythm, no murmur, no gallop. RESPIRATORY SYSTEM: Clear to auscultation bilaterally. No wheezing, no crackles. ABDOMEN: Soft, bowel sounds present. Nontender. No distention. CENTRAL NERVOUS SYSTEM: Cranial nerves II-XII grossly intact, nonfocal. EXTREMITIES: Lower extremity edema present, no erythema seen. LABORATORIES: WBC 6.2, hemoglobin 10.2, hematocrit 29.6, platelets 127. Sodium 139, potassium 3.3, chloride 104, bicarbonate 25, BUN 40, creatinine 9.3, serum glucose 201, calcium 8.1, total bilirubin 0.2, direct bilirubin 0.2, AST 28, ALT 30, alkaline phosphatase 129, lipase 118. ASSESSMENT AND PLAN: This is a 47-year-old male who presents with nausea, vomiting, and hematemesis. 1. Nausea, vomiting, and hematemesis. today. Hemoglobin is stable at 10.2. . His nausea could be from his Flagyl, which he was discharged for his colitis. Monitor H and H. We will hold 2 units of PRBCs. Consult GI for possible EGD. Monitor on the tele floor. 2. History of infectious colitis, was seen by GI last admission on cipro and flagyl for one more week on discharge . We will place him on IV Cipro and Flagyl. Plan for colonoscopy in 6 weeks by GI. 3. End-stage renal disease, on peritoneal dialysis. We will consult nephrology. 4. Diabetes. Continue using Levemir and insulin sliding scale. Monitor the blood sugars. 5. History of coronary artery disease, status post coronary artery bypass grafting. Hold aspirin. Continue Coreg, Lipitor, and Imdur. Currently asymptomatic. 6. History of hypertension. Continue amlodipine, Imdur, Coreg, and Lasix. We will monitor the blood pressure. 7. History of hyperlipidemia. Continue statin. 8. Anemia of chronic kidney disease. Currently, hemoglobin stable at 10.2. We will monitor the hemoglobin. 9. History of hypothyroidism. on Synthroid 10. History of BPH . Continue Flomax. 11. History of lung nodule, 4 mm left lower lobe. follow up as outpatient. 12. Deep venous thrombosis prophylaxis. SCDs and TEDs. DISPOSITION: Admit to tele floor. Expect discharge home and follow with family doctor. Level 1 full code. Hospital Course This is a 47 year old male with a past medical history of ESRD on peritoneal dialysis, DM2, CAD s/p CABG, thrombocytopenia, hypothyroidism - recent admission for colitis and returned due to nausea/vomiting and mild hematemesis Hematemesis - likely from retching, related to nausea/vomiting secondary to abx. - now off of antibiotics - tolerated diet (ate a regular breakfast and lunch on 05/13) - H/H stable no more vomiting, no more hematemesis - will d/c home today; outpatient CBC - outpatient GI follow-up in 6 weeks for colonoscopy; no planned EGD ESRD on Peritoneal Dialysis - not likely to have peritonitis related to PD - off of abx. CAD s/p CABG - no acute issues - restart aspirin; continue Coreg, Lipitor, Imdur HTN - continue Amlodipine, Imdur, Coreg and Lasix Anemia of CKD - H/H around 9-10, monitor CBC as outpatient Hypothyroidism - continue Synthroid BPH - continue Flomax Hx. of Lung Nodule - monitor as outpatient DVT ppx - SCDs FULL CODE Total time spent on discharge = 45 minutes This includes examination of the patient, discharge planning, medication reconciliation, and communication with other providers. Discharge Instructions Please follow-up with Dr. Lyons on May 19 at 11:05AM * Follow-up with GI in 6 weeks for a colonoscopy
[2018-05-13] MEDS ORDERED: INSULIN ASPART 100 UNITS/ML 3 ML PEN SC SCH (22:00)
[2018-05-14] MEDS ORDERED: PANTOprazole SOD 40 MG TAB PO SCH (09:00)
== END 2018-05-13 15:59 | disposition home or self-care (01) | DRG 377 ==
LOC: EDBD 23:38 → C.EDB 23:39 → C.MED 05-12 02:38 → ENRESERV 05-12 02:46
PROVIDERS: ADMIT Internal Medicine; ATTEND Internal Medicine
PROC: 5A1D80Z Performance of Urinary Filtration, Prolonged Intermittent, 6-18 hours Per Day (ICD-10-PCS; principal; 2018-05-12)
DX: K92.0 Hematemesis (principal); I12.0 Hypertensive chronic kidney disease with stage 5 chronic kidney disease or end stage renal disease; E11.22 Type 2 diabetes mellitus with diabetic chronic kidney disease; N18.6 End stage renal disease; E66.9 Obesity, unspecified; Z68.41 Body mass index [BMI] 40.0-44.9, adult; T36.95XA Adverse effect of unspecified systemic antibiotic, initial encounter; E11.319 Type 2 diabetes mellitus with unspecified diabetic retinopathy without macular edema; E11.40 Type 2 diabetes mellitus with diabetic neuropathy, unspecified; E03.9 Hypothyroidism, unspecified; D63.1 Anemia in chronic kidney disease; I25.10 Atherosclerotic heart disease of native coronary artery without angina pectoris; D69.6 Thrombocytopenia, unspecified; N40.0 Benign prostatic hyperplasia without lower urinary tract symptoms; Z79.4 Long term (current) use of insulin; Z79.82 Long term (current) use of aspirin; Z79.899 Other long term (current) drug therapy; Z88.0 Allergy status to penicillin; Z99.2 Dependence on renal dialysis; Z95.1 Presence of aortocoronary bypass graft

== ENCOUNTER 2020-02-21 08:36 | Inpatient (IN) ==
[2020-02-21] MEDS ORDERED: ONDANSETRON INJ 2 MG/ML 2 ML VIAL IV STA (09:08)
[2020-02-21] MEDS ORDERED: FAMOTIDINE 20MG IV PUSH 20 MG/5 ML SYR IV STA (09:08)
--- NOTE | 2020-02-21 09:25 | Emergency Department Note ---
History of Present Illness General Chief complaint: Diarrhea Stated complaint: UPSET STOMACH, DIARRHEA, VOMITING Time Seen by Provider: 02/21/20 08:49 Source: patient, RN notes reviewed and old records reviewed Mode of arrival: ambulatory Limitations: no limitations History of Present Illness Provider complaint: Black tarry stools Onset (ago): day(s) 3 Maximum Pain Intensity: 8 Current Pain Intensity: 0 Quality: + burning Relieved By: + none Exacerbated By: + none Associated symptoms: + nausea/vomiting; no chest pain, no diaphoresis, no fever/chills, no loss of appetite and no shortness of breath This is a 49-year-old male who presents emergency department complaining of epigastric pain which he states is reflux. In addition to this he is also complaining of black tarry stools that have been ongoing for the past 3 days. The patient reports he has been taking Pepto-Bismol for the reflux however the black tarry stools have continued on days when he is not taking the Pepto- Bismol. He is also been taking pantoprazole. He receives dialysis on Friday and Friday. Instead of going to dialysis today the patient came here for evaluation. He does have a history of peritonitis associated with peritoneal dialysis. The patient no longer receives peritoneal dialysis as he has a fistula.. Home Medications Home Medications Medication Instructions Recorded Confirmed Type aspirin [Aspir-81] 81 mg PO PM #0 01/12/14 02/21/20 History atorvastatin 80 mg PO QAM #0 01/12/14 02/21/20 History levothyroxine 25 mcg PO QAM #0 11/02/15 02/21/20 History acetaminophen 500 mg PO Q4H PRN #0 04/23/16 02/21/20 History diphenhydramine HCl [Benadryl] 25 mg PO DAILY PRN #0 04/23/16 02/21/20 History sevelamer carbonate [Renvela] 4,000 mg PO WM #0 08/23/16 02/21/20 History furosemide 160 mg PO QAM #0 tab 02/03/17 02/21/20 History isosorbide mononitrate 30 mg PO QAM #0 tab 11/09/17 02/21/20 History furosemide 80 mg PO QPM #0 tab 03/30/18 02/21/20 History insulin aspart U-100 1 sliding scale dose SUBCUT AC #0 04/25/18 02/21/20 History sevelamer carbonate [Renvela] 2,400 mg PO DIRECTED #0 tab 04/25/18 02/21/20 History tamsulosin 0.4 mg PO DAILY #0 04/25/18 02/21/20 History pantoprazole [Protonix] 40 mg PO QAM 06/16/18 02/21/20 History B complex with C 20-folic acid 1 cap PO DAILY 02/21/20 02/21/20 History [[place] Caps] carvedilol 25 mg PO BID 02/21/20 02/21/20 History lisinopril 40 mg PO DAILY 02/21/20 02/21/20 History Allergies Allergy/AdvReac Type Severity Reaction Status Date / Time Penicillins Allergy Severe ANAPHYLAXIS Verified 02/21/20 10:39 Past Med/Surg History Medical History (Updated 02/21/20 @ 12:46 by Jessie Sebastian PA-C) CAD (coronary artery disease) s/p CABG Chronic CHF Chronic kidney disease STAGE 5-- 3xwk, m,w,f at [facility] follows with dr. roe Congestive heart failure Combined systolic and diastolic, compensated. Echo 2018 showed EF 40-45%. Prior to CABG EF was 30-34%. Diabetes mellitus, type 2 INSULIN DEPENDENT Diabetic neuropathy Diabetic retinopathy Hospitalization or health care facility admission within last 6 months Admitted [facility] 06/24 to 07/10 for peritonitis 2/2 infected peritoneal dialysis catheter, pneumonia. Peritoneal catheter removed, pt now has permacath R upper chest. Hyperlipidemia Hypertension Hyponatremia Hypothyroidism Ischemic cardiomyopathy Myocardial Infarction NSTEMI 02/2014--FOLLOWS W DR. CAMACHO Osteoarthritis Peripheral neuropathy Thrombocytopenia Chronic. Surgical History Fistula PLACED IN L WRIST--DOES NOT WORK and in process of placing new one H/O eye surgery RT/LT History of cardiac cath 02/2014--NO STENTS History of coronary artery bypass [place] [facility] [place] History of vascular access device permacath insertion in right side of chest Hx of hernia repair abdominal hernia and removed PD catheter due to infection 06/2018 Family History Mother Family history of reaction to anesthesia VERY GROGGY AFTER 10 HOUR SURGERY Family history of diabetes mellitus Grandfather Family history of diabetes mellitus MATERNAL Family/Other Family history of diabetes mellitus MATERNAL AUNT Family hx of colon cancer Brother Family history of diabetes mellitus Social History Preferred Language: Niuean Communication Ability: Effective Visual Impairment: No Limitations Clinical Trainer Required: No Beliefs That Will Affect Care: None Current Living Situation: Family Current Living Situation Comment: LIVES WITH BROTHER Feels Safe at Home: Yes Safety Concerns: Feels Safe At This Time Smoking Status: Never smoker Tobacco Type: smokeless tobacco ; Second Hand Exposure: No ; Hx Alcohol Use: No Hx Substance Use: No Review of Systems A total of 10 systems reviewed and were otherwise negative Physical Exam Vital Signs Vital Signs - 24 hr 02/21/20 08:44 02/21/20 10:37 Temperature 36.4 C L Temperature Source Oral Pulse Rate 68 Pulse Rate [Apical] 64 Respiratory Rate 16 18 Blood Pressure 118/72 Blood Pressure [Left Arm] 121/70 Blood Pressure Mean 87 Blood Pressure Mean [Left Arm] 87 Pulse Oximetry 99 97 Oxygen Delivery Method Room Air Room Air Sepsis Recent Fever Within 48 Hours No Sepsis New/Unexplained Change in Mental Status No Sepsis Action Taken by Nursing No Action Required VITAL SIGNS - Vital signs and nursing notes were reviewed. GENERAL - 49-year-old male appearing stated age who is in no acute distress. Communicates well with provider and answers questions appropriately. SKIN - Without rashes. HEAD - NC/AT. EYES - PERRL with EOMI bilaterally. Sclera anicteric. Palpebral conjunctiva pink and moist with no injection noted. EARS - No deformities of external structures noted on gross examination bilaterally. No pain elicited with palpation of the tragus bilaterally. External auditory canals without discharge or otorrhea. Tympanic membranes pearly raphael without retraction or bulging. No fluid or purulent material visualized behind the TM. Handle of malleus, umbo, cone of light, pars tensa/flaccid all easily visualized. NOSE - Midline and without cyanosis. No epistaxis or purulent drainage noted. Septum midline without deviation or septal hematoma noted. MOUTH/OROPHARYNX - Without perioral cyanosis. Buccal mucosa pink and moist and without leukoplakia. Tongue midline with equal elevation of palate bilaterally. No tonsillar hypertrophy, erythema, or exudates noted. dentition noted. NECK - Neck with FROM. Supple to palpation. lymphadenopathy noted. No nuchal rigidity. LUNGS - Chest wall symmetric without accessory muscle use, intercostals retractions, or central cyanosis. Normal vesicular breath sounds CTA B/L. No wheezes, rales, or rhonchi appreciated. CARDIAC - RRR with S1/S2. No murmur, rubs, or gallops appreciated. ABDOMEN - Abdominal contour without pulsations or visible masses. BS normoactive all four quadrants. No tenderness, palpable masses, hepatosplenomegaly, or ascites noted. EXTREMITIES - No clubbing or peripheral cyanosis. No pretibial edema present. +3/5 radial, posterior tibial, and dorsalis pedis pulses palpated throughout. +5/5 strength noted in UE/LE bilaterally. NEUROLOGIC - Cranial nerves II through XII grossly intact. Sensory intact to light touch throughout. Patellar reflexes +2/4. PSYCH - A&Ox3 and cooperates fully with examiner. Pt is very pleasant and interacts well with examiner. Course Administered Medications Discontinued Medications Dextrose (Dextrose 50%) 50 ml IV NOW STA Stop: 02/21/20 09:43 Last Admin: 02/21/20 09:53 Dose: 50 ml Documented by: [id number] Dextrose (Dextrose 50%) 50 ml IV NOW ONE Stop: 02/21/20 11:08 Last Admin: 02/21/20 11:12 Dose: 50 ml Documented by: [id number] Famotidine (Pepcid 20mg Iv Push) 20 mg in 5 mls @ 2.5 mls/min IV NOW STA Stop: 02/21/20 09:09 Last Admin: 02/21/20 09:33 Dose: 2.5 mls/min Documented by: [id number] Calcium Gluconate 1,000 mg/ (Sodium Chloride) 60 mls @ 240 mls/hr IV NOW STA Stop: 02/21/20 09:54 Last Infusion: 02/21/20 10:38 Dose: 0 mls/hr Documented by: [id number] Admin: 02/21/20 10:02 Dose: 240 mls/hr Documented by: [id number] Insulin Human Regular 10 units (/ Syringe) 9.9 mls @ 3 mls/sec IV ONE STA Stop: 02/21/20 09:43 Last Admin: 02/21/20 09:53 Dose: 3 mls/sec Documented by: [id number] Cosigned by: [id number] Insulin Human Regular (Novolin R U-100 Per Unit) Confirm Administered Dose 1 units .ROUTE .STK-MED ONE Stop: 02/21/20 09:53 Last Admin: 02/21/20 09:54 Dose: Not Given Documented by: [id number] Ondansetron HCl (Zofran) 4 mg IV NOW STA Stop: 02/21/20 09:09 Last Admin: 02/21/20 09:33 Dose: 4 mg Documented by: [id number] Sodium Bicarbonate (Sodium Bicarbonate 8.4%) 50 meq IV NOW STA Stop: 02/21/20 09:41 Last Admin: 02/21/20 09:53 Dose: 50 meq Documented by: [id number] Critical Care Time Critical Care Time: Yes I have personally spent greater than 90 minutes of critical care time in the direct management of this patient. This includes bedside care, interpretation of diagnostic studies, and testing, discussion with consultants, patient, and family members, and other required patient management activities. This 90 minutes is in excess of all separately billable procedures. Medical Decision Making Differential Diagnosis Appendicitis, testicular torsion, infections, diverticulitis, UTI, obstruction, mesenteric ischemia, aortic pathology, inflammatory bowel disease, renal colic, PUD, pancreatitis, biliary pathology, hernia, volvulus, constipation, as well as other pathologies. Medical Records Attestation: I reviewed the patient's medical records. Home Medications Current Medication List: was personally reviewed by me Laboratory Data Attestation: I reviewed the patient's lab results. Result diagrams: 02/21/20 09:25 02/21/20 12:53 Lab Results 02/21/20 02/21/20 02/21/20 Range/Units 09:25 09:25 09:25 WBC 5.58 (4.8-10.8) K/uL RBC 3.09 L (4.7-6.1) M/uL Hgb 10.6 L (14.0-18.0) g/dL POC Hgb (14.0-18.0) g/dl Hct 30.2 L (42-52) % POC Hct (42-52) % MCV 97.7 (80-100) fL MCH 34.3 H (25-34) pg MCHC 35.1 (32-36) g/dL RDW Std Deviation 44.8 (36.4-46.3) fL RDW Coeff of Ira 12.7 (11.5-14.5) % Plt Count 61 L (130-400) K/uL MPV 10.4 (7.4-10.4) fL Immature Gran % (Auto) 0.2 % Neut % (Auto) 75.9 % Lymph % (Auto) 14.2 % [place] % (Auto) 6.1 % Eos % (Auto) 3.4 % Baso % (Auto) 0.2 % Immature Gran # (Auto) 0.01 (0.00-0.02) K/uL Neut # (Auto) 4.24 (1.4-6.5) K/uL Lymph # (Auto) 0.79 L (1.2-3.4) K/uL [place] # (Auto) 0.34 (0.11-0.59) K/uL Eos # (Auto) 0.19 (0-0.5) K/uL Baso # (Auto) 0.01 (0-0.2) K/uL ESR 16 H (0-14) mm/hr POC Sodium (135-144) mmol/L Sodium 133 L (136-145) mmol/L POC Potassium (3.3-5.0) mmol/L Potassium 7.8 H* (3.5-5.1) mmol/L POC Chloride (101-112) mmol/L Chloride 97 L (98-107) mmol/L Carbon Dioxide 20 L (21-32) mmol/L POC Total CO2 (24-31) mmol/L Anion Gap 17.0 H (3-11) POC Anion Gap (16-25) mmol/L POC BUN (7-18) mg/dl BUN 140 H (7-18) mg/dl Creatinine 23.40 H* (0.6-1.4) mg/dl POC Creatinine (0.6-1.3) mg/dl Est Cr Clr Drug Dosing 4.5 ml/min Est GFR ( Amer) 2.3 Est GFR (Non-Af Amer) 2.0 BUN/Creatinine Ratio 6.0 L (10-20) Glucose 107 H (70-99) mg/dl POC Glucose (70-99) mg/dl POC Glucose (other) (70-99) mg/dl Calcium 8.2 L (8.5-10.1) mg/dl POC Ioniz Calcium Elizabeth (1.12-1.32) mmol/l Total Bilirubin 0.4 (0.2-1) mg/dl AST 14 L (15-37) U/L ALT 32 (12-78) U/L Alkaline Phosphatase 114 (45-117) U/L Troponin I < 0.015 (0-0.045) ng/ml Total Protein 8.1 (6.4-8.2) gm/dl Albumin 4.1 (3.4-5.0) gm/dl Globulin 4.0 (2.5-4.0) gm/dl Albumin/Globulin Ratio 1.0 (0.9-2) Lipase 469 H (73-393) U/L 02/21/20 02/21/20 Range/Units 09:28 11:06 WBC (4.8-10.8) K/uL RBC (4.7-6.1) M/uL Hgb (14.0-18.0) g/dL POC Hgb 9.9 L (14.0-18.0) g/dl Hct (42-52) % POC Hct 29 L (42-52) % MCV (80-100) fL MCH (25-34) pg MCHC (32-36) g/dL RDW Std Deviation (36.4-46.3) fL RDW Coeff of Ira (11.5-14.5) % Plt Count (130-400) K/uL MPV (7.4-10.4) fL Immature Gran % (Auto) % Neut % (Auto) % Lymph % (Auto) % [place] % (Auto) % Eos % (Auto) % Baso % (Auto) % Immature Gran # (Auto) (0.00-0.02) K/uL Neut # (Auto) (1.4-6.5) K/uL Lymph # (Auto) (1.2-3.4) K/uL [place] # (Auto) (0.11-0.59) K/uL Eos # (Auto) (0-0.5) K/uL Baso # (Auto) (0-0.2) K/uL ESR (0-14) mm/hr POC Sodium 131 L (135-144) mmol/L Sodium (136-145) mmol/L POC Potassium 7.7 H* (3.3-5.0) mmol/L Potassium (3.5-5.1) mmol/L POC Chloride 98 L (101-112) mmol/L Chloride (98-107) mmol/L Carbon Dioxide (21-32) mmol/L POC Total CO2 20 L (24-31) mmol/L Anion Gap (3-11) POC Anion Gap 22.0 (16-25) mmol/L POC BUN > 140 H* (7-18) mg/dl BUN (7-18) mg/dl Creatinine (0.6-1.4) mg/dl POC Creatinine > 20.0 H* (0.6-1.3) mg/dl Est Cr Clr Drug Dosing ml/min Est GFR ( Amer) Est GFR (Non-Af Amer) BUN/Creatinine Ratio (10-20) Glucose (70-99) mg/dl POC Glucose 45 L* (70-99) mg/dl POC Glucose (other) 99 (70-99) mg/dl Calcium (8.5-10.1) mg/dl POC Ioniz Calcium Elizabeth 1.04 L (1.12-1.32) mmol/l Total Bilirubin (0.2-1) mg/dl AST (15-37) U/L ALT (12-78) U/L Alkaline Phosphatase (45-117) U/L Troponin I (0-0.045) ng/ml Total Protein (6.4-8.2) gm/dl Albumin (3.4-5.0) gm/dl Globulin (2.5-4.0) gm/dl Albumin/Globulin Ratio (0.9-2) Lipase (73-393) U/L ECG Data Attestation: I personally reviewed and interpreted this ECG as follows: Indication: + abdominal pain Rate (beats per minute): 64 Rhythm: + normal sinus ECG Intervals/blocks: + Normal QT-c (437) ECG [place]: + Normal ECG ST segments: no ST depression and no ST elevation ECG Findings: + Other (T wave inversions in lateral leads) Comparison ECG Date: from (10/22/2019) Change: no significant change Blood Pressure Blood Pressure Findings: Normal blood pressure MDM Narrative Patient was seen and evaluated as above in room B3. Review was performed of nursing notes and vital signs. I did review pertinent previous visits and patient history. After obtaining a thorough history and physical examination the above work up was performed. This is a 49-year-old male who is actually due for dialysis today. His potas sium was found to be grossly elevated at 7.7. This was reconfirmed on laboratory work. The patient does have peaked T waves on his EKG. Based on this he was started on calcium dextrose and insulin. He was also given bicarb. He was started on a Pepcid drip. He was discussed with nephrology who asked that the patient be admitted to the hospitalist service. He is heme positive on physical examination. While in the department, I personally reevaluated the patient several times and each time the patient was found to be resting comfortably. An order was placed for continuous cardiac monitoring. The monitor shows a rate of 68 with Normal Sinus rhythm. The patient was evaluated during the global COVID-19 pandemic, and that diagnosis was suspected/considered upon their initial presentation. Their evaluation, treatment and testing was consistent with current guidelines for patients who present with complaints or symptoms that may be related to COVID- 19. Impression & Plan Anemia, Acute GI bleeding, Acute hyperkalemia, Diarrhea Discharge Plan Visit Data *Final* Discharge Date/Time: 02/21/20 12:38 Chief Complaint: Diarrhea Stated Complaint: UPSET STOMACH, DIARRHEA, VOMITING ED Provider: Karthikeyan Tinsley ED Midlevel Provider: Ravi Forte Discharge Problem: Anemia, Acute GI bleeding, Acute hyperkalemia, Diarrhea Patient Disposition: Admitted As Inpatient Discharge Instructions Interventions: ED Discharge Assessment Last Done: 02/21/20 12:38 Discharge Problem: Anemia Qualifiers: Anemia type: unspecified type Qualified Code(s): D64.9 - Anemia, unspecified Diarrhea Qualifiers: Diarrhea type: unspecified type Qualified Code(s): R19.7 - Diarrhea, unspecified
--- NOTE | 2020-02-21 09:33 | Emergency Department Note ---
ED Visit Note Patient seen and examined in conjunction with Dr. Tinsley. Please see his note for medical decision making. . Resident Activity Tracking Resident Involvement: Resident Care Provided Care Provided: Adult ED : Anemia Qualifiers: Anemia type: unspecified type Qualified Code(s): D64.9 - Anemia, unspecified Diarrhea Qualifiers: Diarrhea type: unspecified type Qualified Code(s): R19.7 - Diarrhea, unspecified
[2020-02-21 09:38] LABS: Hematocrit (blood only) 30.2 % (42-52); Hemoglobin 10.6 g/dL (14.0-18.0); Mean Corpuscular Hemoglobin 34.3 pg (25-34); Mean Corpuscular Hgb Conc 35.1 g/dL (32-36); Mean Corpuscular Volume 97.7 fL (80-100); Mean Platelet Volume 10.4 fL (7.4-10.4); Platelet Count 61 K/uL (130-400); RDW Coefficient of Variation 12.7 % (11.5-14.5); RDW Standard Deviation 44.8 fL (36.4-46.3); Red Blood Count 3.09 M/uL (4.7-6.1); White Blood Count 5.58 K/uL (4.8-10.8)
[2020-02-21] MEDS ORDERED: CALCIUM GLUCONATE 10% 1,000 MG in SODIUM CHLORIDE 0.9% 50 ML IV STA ×2 (09:40→14:04)
[2020-02-21] MEDS ORDERED: SODIUM BICARB 8.4% INJ 50 MEQ/50 ML SYR IV STA (09:40)
[2020-02-21] MEDS ORDERED: INSULIN HUMAN REGULAR PER UNIT 10 UNITS in SYRINGE 9.9 ML IV STA (09:42)
[2020-02-21] MEDS ORDERED: DEXTROSE 50% 50 ML SYRINGE IV STA ×2 (09:42→14:05)
[2020-02-21 09:48] LABS: iSTAT Blood Urea Nitrogen > 140 mg/dl (7-18); iSTAT Carbon Dioxide 20 mmol/L (24-31); iSTAT Chloride 98 mmol/L (101-112); iSTAT Creatinine > 20.0 mg/dl (0.6-1.3); iSTAT Glucose 99 mg/dl (70-99); iSTAT Hematocrit 29 % (42-52); iSTAT Hemoglobin 9.9 g/dl (14.0-18.0); iSTAT Ionized Calcium 1.04 mmol/l (1.12-1.32); iSTAT Potassium 7.7 mmol/L (3.3-5.0); iSTAT Sodium 131 mmol/L (135-144)
[2020-02-21] MEDS ORDERED: NovoLIN-R INSULIN PER UNIT CHARGE ONE (09:52)
[2020-02-21 10:07] LABS: Basophils # (auto) 0.01 K/uL (0-0.2); Basophils % (auto) 0.2 %; Eosinophils # (auto) 0.19 K/uL (0-0.5); Eosinophils % (auto) 3.4 %; Immature Granulocytes # (auto) 0.01 K/uL (0.00-0.02); Immature Granulocytes % (auto) 0.2 %; Lymphocytes # (auto) 0.79 K/uL (1.2-3.4); Lymphocytes % (auto) 14.2 %; Monocytes # (auto) 0.34 K/uL (0.11-0.59); Monocytes % (auto) 6.1 %; Neutrophils # (auto) 4.24 K/uL (1.4-6.5); Neutrophils % (auto) 75.9 %
[2020-02-21 10:09] LABS: Alanine Aminotransferase 32 U/L (12-78); Albumin Level 4.1 gm/dl (3.4-5.0); Alkaline Phosphatase 114 U/L (45-117); Aspartate Aminotransferase 14 U/L (15-37); Bilirubin,Total 0.4 mg/dl (0.2-1); Blood Urea Nitrogen 140 mg/dl (7-18); Calcium 8.2 mg/dl (8.5-10.1); Carbon Dioxide 20 mmol/L (21-32); Chloride 97 mmol/L (98-107); Creatinine Clr Calc Pharmacy 4.5 ml/min; Est GFR (African American) 2.3; Glucose 107 mg/dl (70-99); Lipase 469 U/L (73-393); Potassium 7.8 mmol/L (3.5-5.1); Sodium 133 mmol/L (136-145); Total Protein 8.1 gm/dl (6.4-8.2); Troponin I < 0.015 ng/ml (0-0.045)
[2020-02-21] MEDS ORDERED: DEXTROSE 50% 50 ML SYRINGE IV ONE (11:07)
--- NOTE | 2020-02-21 11:53 | History & Physical Report ---
Date of Service February 21, 2020 Assessment & Plan (1) Acute hyperkalemia: Pt is 49 y/o M with PMH ESRD on HD on MWF schedule, HTN, dyslipidemia, CAD s/p CABG, chronic systolic and diastolic congestive heart failure, DM II, thrombocytopenia, obesity presented to ER with complaint of indigestion, vomiting, diarrhea. In ER patient afebrile, PA: 68, RR: 16, BP 118/72, 99% on room air. WBC: 5.5, H/H 10.6/30 (Hgb: 12 on 11/04/2019), NA: 133, K: 7.8, Cl: 97, CO2: 20, A, Gluc: 107. EKG, sinus rhythm, peaked T waves -In ER given calcium gluconate 1 g, insulin R 10 units, dextrose 50 mg IV, sodium bicarb 50 mEq IV, -In ER pt became diaphoretic and dizzy, BSG was 45. Was given dextrose IV and BSG up to 112 -Magnesium, phosphorus pending -Repeat BMP -Nephrology consult, Dr Sahu aware and plans dialysis (2) Nausea vomiting and diarrhea: (3) Melena: C/O heartburn sensation x 1.5 weeks. Past 5-6 days has been vomiting every other day 1-2 episodes daily. Also reports last 5 days with loose stool having 1-2 episodes daily. Reports spot of blood in vomit this morning -In ER given Pepcid, Zofran -In ER reported heme positive stool -In ER given IV pepcid -C-diff, stool culture pending -Pending COVID -Isolation precautions for now -PPI IV for now -Monitor CBC -Consider GI consult (4) ESRD (end stage renal disease) on dialysis: On MWF schedule Last HD on 02/18/2020 -Continue renal meds -Nephrology consult (5) Coronary artery disease: S/P CABG No CP, SOB. Initial troponin negative -Continue carvedilol, atorvastatin, isosorbide -Will hold aspirin for now (6) Chronic CHF: Chronic systolic and diastolic CHF -Pt had morning Lasix, hold tonight's Lasix dose for now (7) Hypertension: BP stable -Will hold lisinopril for now -Continue carvedilol (8) Diabetes mellitus, type II: A1c: 5.7 on 11/04/19 -Hold home insulin -Novolog sliding scale per protocol (9) Hypothyroidism: -Continue levothyroxine (10) Thrombocytopenia: Chronic thrombocytopenia Followed with Dr Lyons Plt: 61, Plt was 79 on 11/04/2019 -Monitor CBC DVT Prophylaxis -SCDs Full Code as per discussion with pt Follows with Dr Marcelino for routine care Pt was seen and care coordinated with Dr Smith. See addendum History of Present Illness Chief Complaint: indigestion, Vomiting, loose stools Primary Care Provider: Dalton Marcelino MD Pt is 49 y/o M with PMH ESRD on HD on MWF schedule, HTN, dyslipidemia, CAD s/p CABG, chronic systolic and diastolic congestive heart failure, DM II, thrombocytopenia, obesity presented to ER with complaint of indigestion, vomiting, diarrhea. Patient complains of heartburn sensation for the past 1.5 weeks. He states for the past 5-6 days has been vomiting every other day 1-2 episodes. Also reports last 5 days with loose stool having 1-2 episodes daily. Patient states this morning vomited and had drop of blood in it. Patient states his been taking Pepto-Bismol last couple of days. Past 3 days has noticed raphael to black-colored stools. Today having muscle aches mostly to legs. Denies any abdominal pain. Still makes a little bit of urine, denies any dysuria, hematuria. Denies CP, SOB, dizziness, palpitations. Denies fever/chills, diaphoresis, hematochezia, PRITCHARD, syncope, vision changes, neck pain, orthopnea, cough, sore throat, choking, otalgia, rhinorrhea, abdominal pain, paresthesias, extremity weakness, extremity edema, rashes. Allergies Allergy/AdvReac Type Severity Reaction Status Date / Time Penicillins Allergy Severe ANAPHYLAXIS Verified 02/21/20 10:39 Home Medications Home Medications Medication Instructions Recorded Confirmed Type aspirin [Aspir-81] 81 mg PO PM #0 01/12/14 02/21/20 History atorvastatin 80 mg PO QAM #0 01/12/14 02/21/20 History levothyroxine 25 mcg PO QAM #0 11/02/15 02/21/20 History acetaminophen 500 mg PO Q4H PRN #0 04/23/16 02/21/20 History diphenhydramine HCl [Benadryl] 25 mg PO DAILY PRN #0 04/23/16 02/21/20 History sevelamer carbonate [Renvela] 4,000 mg PO WM #0 08/23/16 02/21/20 History furosemide 160 mg PO QAM #0 tab 02/03/17 02/21/20 History isosorbide mononitrate 30 mg PO QAM #0 tab 11/09/17 02/21/20 History furosemide 80 mg PO QPM #0 tab 03/30/18 02/21/20 History insulin aspart U-100 1 sliding scale dose SUBCUT AC #0 04/25/18 02/21/20 History sevelamer carbonate [Renvela] 2,400 mg PO DIRECTED #0 tab 04/25/18 02/21/20 History tamsulosin 0.4 mg PO DAILY #0 04/25/18 02/21/20 History pantoprazole [Protonix] 40 mg PO QAM 06/16/18 02/21/20 History B complex with C 20-folic acid 1 cap PO DAILY 02/21/20 02/21/20 History [Hutchinson Caps] carvedilol 25 mg PO BID 02/21/20 02/21/20 History lisinopril 40 mg PO DAILY 02/21/20 02/21/20 History Past Med/Surg History Medical History (Updated 02/21/20 @ 12:46 by Jessie Sebastian PA-C) CAD (coronary artery disease) s/p CABG Chronic CHF Chronic kidney disease STAGE 5-- 3xwk, m,w,f at [facility] follows with dr. roe Congestive heart failure Combined systolic and diastolic, compensated. Echo 2018 showed EF 40-45%. Prior to CABG EF was 30-34%. Diabetes mellitus, type 2 INSULIN DEPENDENT Diabetic neuropathy Diabetic retinopathy Hospitalization or health care facility admission within last 6 months Admitted [facility] 06/24 to 07/10 for peritonitis 2/2 infected peritoneal dialysis catheter, pneumonia. Peritoneal catheter removed, pt now has permacath R upper chest. Hyperlipidemia Hypertension Hyponatremia Hypothyroidism Ischemic cardiomyopathy Myocardial Infarction NSTEMI 02/2014--FOLLOWS W DR. CAMACHO Osteoarthritis Peripheral neuropathy Thrombocytopenia Chronic. Surgical History Fistula PLACED IN L WRIST--DOES NOT WORK and in process of placing new one H/O eye surgery RT/LT History of cardiac cath 02/2014--NO STENTS History of coronary artery bypass graft QUADRIPLE BYPASS [place] [facility] [place]. History of vascular access device permacath insertion in right side of chest Hx of hernia repair abdominal hernia and removed PD catheter due to infection 06/2018 Family History Mother Family history of reaction to anesthesia VERY GROGGY AFTER 10 HOUR SURGERY Family history of diabetes mellitus Grandfather Family history of diabetes mellitus MATERNAL Family/Other Family history of diabetes mellitus MATERNAL AUNT Family hx of colon cancer Brother Family history of diabetes mellitus Social History Preferred Language: Belarusian Communication Ability: Effective Visual Impairment: No Limitations 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 Beliefs That Will Affect Care: None Current Living Situation: Family Current Living Situation Comment: LIVES WITH BROTHER Feels Safe at Home: Yes Safety Concerns: Feels Safe At This Time Smoking Status: Never smoker Tobacco Type: smokeless tobacco ; Second Hand Exposure: No ; Hx Alcohol Use: No Hx Substance Use: No Review of Systems Review of Systems: All systems reviewed & are unremarkable except as noted in HPI & below Physical Exam Physical Exam: General: no acute distress, obese Head: normocephalic, atraumatic Eyes: PERRL, EOM's intact, conjunctiva non-injected, anicteric ENT: normal inspection external ears, nose, mucous membranes moist Neck: supple, trachea midline Lungs: clear, no respiratory distress, no wheezing/rhonchi/rales CV: RRR, no murmur, no pretibial edema Abd: normal BS, soft, non-tender Ext: no cyanosis, no calf tenderness; palpable thrill to left arm fistula Neuro: A&O x 3, no focal deficits noted, normal affect Skin: warm, dry Results & Data Results & Data ([facility]) Vital Signs (Past 12 Hours) Vital Signs Temp Pulse Pulse Resp BP BP Pulse Ox 02/21/20 10:37 64 18 121/70 97 02/21/20 08:44 36.4 C L 68 16 118/72 99 Laboratory Results Short CBC 02/21/20 Range/Units 09:25 WBC 5.58 (4.8-10.8) K/uL Hgb 10.6 L (14.0-18.0) g/dL Hct 30.2 L (42-52) % Plt Count 61 L (130-400) K/uL BMP 02/21/20 09:25 Sodium 133 L Potassium 7.8 H* Chloride 97 L Carbon Dioxide 20 L BUN 140 H Creatinine 23.40 H* Glucose 107 H Calcium 8.2 L Cardiac Enzymes 02/21/20 Range/Units 09:25 Troponin I < 0.015 (0-0.045) ng/ml Liver Function 02/21/20 Range/Units 09:25 Total Bilirubin 0.4 (0.2-1) mg/dl AST 14 L (15-37) U/L ALT 32 (12-78) U/L Alkaline Phosphatase 114 (45-117) U/L Albumin 4.1 (3.4-5.0) gm/dl Diagnostic Findings CXR: IMPRESSION: 1. No acute cardiopulmonary disease. Code Status & VTE Plan VTE Prophylaxis Plan VTE Prophylaxis will be ordered: Yes Supervising Physician Co-Signing Physician Notes Patient seen and examined by me, care coordinated with CAREY Latif. Please refer to her note above for further detail. 49 y/o M with ESRD on HD on MWF schedule, HTN, dyslipidemia, CAD s/p CABG, chronic combined systolic and diastolic congestive heart failure (follows Dr. Camacho), DM type II, thrombocytopenia, and obesity who presented to ER with c omplaint of indigestion, vomiting, diarrhea, and muscle cramps. He was found hyperkalemic with potassium 7.8 in the ED. He was given calcium gluconate, IV insulin, bicarb. There were some peaked T waves on EKG, patient denied any chest pain, palpitations or shortness of breath or dizziness. Nephrology was consulted and patient underwent dialysis for hyperkalemia. His last dialysis before today was on Friday. Per nephrology, there may be some malfunction of AV fistula. Vascular surgery consulted. On my evaluation, patient is lying in bed, in no acute distress. Denies any fevers, chills in addition to above. COVID-19 was tested in the emergency room, negative. He is breathing comfortably on room air, no rhonchi wheezing or crackles noted on auscultation. Heart sounds regular, no murmur noted. Abdomen is soft, nontender, nondistended, normal bowel sounds. Patient is moving all extremities spontaneously and without difficulty. There is no lower extremity edema. Patient is alert and oriented and answers questions appropriately. Skin and extremities are warm and well-perfused. Stool tested for C. difficile. Lisinopril held due to hyperkalemia, restart when able, due to his history of left ventricular systolic dysfunction. MD Kesha
--- NOTE | 2020-02-21 12:53 | XRay Report ---
XR chest 1V portable CLINICAL HISTORY: 49 years-old Male presenting with Pt c/o SOB. TECHNIQUE: Portable upright AP view of the chest was obtained. COMPARISON: 10/01/2018. FINDINGS: The prior tunnel right IJ central venous catheter has been removed. Median sternotomy wires and coron janice artery bypass graft rings noted. Cardiac silhouette normal in size. No focal opacity. No large ef fusion or pneumothorax. Osseous structures normal. Upper abdomen normal. IMPRESSION: 1. No acute cardiopulmonary disease. ACT 112: Negative or not required by law. Electronically signed by: Brett Paredes M.D. 02/21/2020 12:51 PM
[2020-02-21 13:40] LABS: Blood Urea Nitrogen 146 mg/dl (7-18); C Reactive Protein < 0.29 mg/dl (0-0.29); Calcium 8.5 mg/dl (8.5-10.1); Carbon Dioxide 18 mmol/L (21-32); Chloride 96 mmol/L (98-107); Creatinine Clr Calc Pharmacy 4.7 ml/min; Est GFR (African American) 2.4; Est GFR (Non-African American) 2.1; Ferritin 1043.5 ng/ml (8-388); Glucose 96 mg/dl (70-99); Magnesium 3.4 mg/dl (1.8-2.4); Phosphorus 9.6 mg/dl (2.5-4.9); Potassium 8.2 mmol/L (3.5-5.1); Sodium 132 mmol/L (136-145)
[2020-02-21] MEDS ORDERED: SODIUM CHLORIDE 0.9% 1000ML 1,000 ML IV PRN (13:46)
[2020-02-21] MEDS ORDERED: HEPARIN SOD (PORCINE) 1000 UNIT/ML 10 ML VIAL IV ONE (13:46)
[2020-02-21] MEDS ORDERED: GLUCOSE 10 TABS/TUBE PO PRN (13:47)
[2020-02-21] MEDS ORDERED: GLUCAGON FOR INJ 1 MG VIAL SQ PRN (13:47)
[2020-02-21] MEDS ORDERED: CARBOHYDRATES FOR HYPOGLYCEMIA PO PRN (13:47)
[2020-02-21] MEDS ORDERED: DEXTROSE 50% 50 ML SYRINGE IV PRN (13:47)
[2020-02-21] MEDS ORDERED: ONDANSETRON INJ 2 MG/ML 2 ML VIAL IV PRN (13:47)
[2020-02-21] MEDS ORDERED: GLUCOSE 40% GEL 15 GM TUBE PO PRN (13:47)
[2020-02-21] MEDS ORDERED: SEVELAMER HCL 800 MG TABLET PO PRN (13:47)
[2020-02-21] MEDS ORDERED: NovoLIN-R BOLUS FROM BAG IV ONE (13:55)
[2020-02-21] MEDS ORDERED: INSULIN ASPART 100 UNITS/ML 3 ML PEN SC SCH (14:00)
[2020-02-21] MEDS ORDERED: EPOETIN ALFA 4,000 UNIT/ML VIAL IV SCH (14:00)
[2020-02-21] MEDS ORDERED: INSULIN HUMAN REGULAR PER UNIT 10 UNITS in SYRINGE 9.9 ML IV ONE (14:15)
[2020-02-21] MEDS: SEVELAMER HCL 800 MG TABLET PO SCH ×2 (14:52→14:56)
[2020-02-21] MEDS: PANTOprazole 40 MG in SYRINGE 0 ML IV SCH ×2 (14:55→19:31)
[2020-02-21] MEDS: HEPARIN SOD (PORCINE) 1000 UNIT/ML 10 ML VIAL IV SCH ×3 (15:40→17:40)
--- NOTE | 2020-02-21 16:27 | Nephrology Consultation ---
Date of Consultation February 21, 2020 Assessment & Plan (1) ESRD (end stage renal disease): Patient with ESRD on HD MWF. LAst HD was friday but pt likely not getting adequate HD due to AVF malfunction. He is tolerating HD today for 4hrs. Next HD likely tomorrow or friday depending on labs (2) Dialysis AV fistula malfunction: Will consult vascular. Patient needs fistulogram. (3) Acute hyperkalemia: Will dialyse on 1k bath for 2hr and 2k for 2hrs. Repeat K 3hr post HD History of Present Illness Reason for Consultation: ESRD, hyperkalemia Requesting Physician: Dennis Smith MD Attending Physician: Dennis Smith MD History of Present Illness Pt is 49 y/o M with PMH ESRD on HD on MWF being seen for urgent dialysis due to hyperkalemia of 7.8. PMH of DM2, HTN, dyslipidemia, CAD s/p CABG, chronic systolic and diastolic congestive heart failure, thrombocytopenia and obesity. He has a left UA AVF placed a yr ago by Dr. Serrano. Last HD was friday. he has been having indigestion, vomiting, diarrhea for about 1.5 weeks. Patient had some EKG changes in ED. he got calcium gluconate, bicarb and insulin. he feels better now. I initially saw the patient in consult in his room. I later returned to see the patient while on dialysis. he was seen and examined while on dialysis. Allergies Allergy/AdvReac Type Severity Reaction Status Date / Time Penicillins Allergy Severe ANAPHYLAXIS Verified 02/21/20 10:39 Home Medications Home Medications Medication Instructions Recorded Confirmed Type aspirin [Aspir-81] 81 mg PO PM #0 01/12/14 02/21/20 History atorvastatin 80 mg PO QAM #0 01/12/14 02/21/20 History levothyroxine 25 mcg PO QAM #0 11/02/15 02/21/20 History acetaminophen 500 mg PO Q4H PRN #0 04/23/16 02/21/20 History diphenhydramine HCl [Benadryl] 25 mg PO DAILY PRN #0 04/23/16 02/21/20 History sevelamer carbonate [Renvela] 4,000 mg PO WM #0 08/23/16 02/21/20 History furosemide 160 mg PO QAM #0 tab 02/03/17 02/21/20 History isosorbide mononitrate 30 mg PO QAM #0 tab 11/09/17 02/21/20 History furosemide 80 mg PO QPM #0 tab 03/30/18 02/21/20 History insulin aspart U-100 1 sliding scale dose SUBCUT AC #0 04/25/18 02/21/20 History sevelamer carbonate [Renvela] 2,400 mg PO DIRECTED #0 tab 04/25/18 02/21/20 History tamsulosin 0.4 mg PO DAILY #0 04/25/18 02/21/20 History pantoprazole [Protonix] 40 mg PO QAM 06/16/18 02/21/20 History B complex with C 20-folic acid 1 cap PO DAILY 02/21/20 02/21/20 History [Robeson Caps] carvedilol 25 mg PO BID 02/21/20 02/21/20 History lisinopril 40 mg PO DAILY 02/21/20 02/21/20 History Patient History Medical History (Updated 02/21/20 @ 12:46 by Jessie Sebastian PA-C) CAD (coronary artery disease) s/p CABG Chronic CHF Chronic kidney disease STAGE 5-- 3xwk, [facility] dr. roe Congestive heart failure Combined systolic and diastolic, compensated. Echo 2018 showed EF 40-45%. Prior to CABG EF was 30-34%. Diabetes mellitus, type 2 INSULIN DEPENDENT Diabetic neuropathy Diabetic retinopathy Hospitalization or health care facility admission within last 6 months Admitted [facility] 06/24 to 07/10 for peritonitis 2/2 infected peritoneal dialysis catheter, pneumonia. Peritoneal catheter removed, pt now has permacath R upper chest. Hyperlipidemia Hypertension Hyponatremia Hypothyroidism Ischemic cardiomyopathy Myocardial Infarction NSTEMI 02/2014--FOLLOWS W DR. CAMACHO Osteoarthritis Peripheral neuropathy Thrombocytopenia Chronic. Surgical History Fistula PLACED IN L WRIST--DOES NOT WORK and in process of placing new one H/O eye surgery RT/LT History of cardiac cath 02/2014--NO STENTS History of coronary artery bypass graft [facility]ADRIPLE BYPASS [facility] [place] 02/2014. History of vascular access device permacath insertion in right side of chest Hx of hernia repair abdominal hernia and removed PD catheter due to infection 06/2018 Family History Mother Family history of reaction to anesthesia VERY GROGGY AFTER 10 HOUR SURGERY Family history of diabetes mellitus Grandfather Family history of diabetes mellitus MATERNAL Family/Other Family history of diabetes mellitus MATERNAL AUNT Family hx of colon cancer Brother Family history of diabetes mellitus Social History Preferred Language: Sinhala Communication Ability: Effective Visual Impairment: No Limitations Wheat Grower Required: No Beliefs That Will Affect Care: None Current Living Situation: Family Current Living Situation Comment: LIVES WITH BROTHER Feels Safe at Home: Yes Safety Concerns: Feels Safe At This Time Smoking Status: Never smoker Tobacco Type: smokeless tobacco ; Second Hand Exposure: No ; Hx Alcohol Use: No Hx Substance Use: No Review of Systems Review of Systems: All systems reviewed & are unremarkable except as noted in HPI & below Physical Exam Physical Exam: General exam: Appears comfortable, no acute distress HEENT: Pupils are equal and reactive to light Neck: No JVD, neck is supple trachea is midline Respiratory system: Clear breath sounds bilaterally. Gastrointestinal: Abdomen is soft, non distended, non tender, bowel sounds are present CVS: Regular rate and rhythm. No murmurs, rubs or gallops Musculoskeletal: No joint or muscle tenderness Extremities: Non tender, no edema, peripheral pulses are present Neuro: Oriented, no tremors, no focal neurological deficits Skin: No rashes Access: AVF with soft short bruit Results & Data Vital Signs (Past 12 Hours) Vital Signs Temp Pulse Pulse Pulse Resp BP BP 02/21/20 16:00 60 94/43 L 02/21/20 15:40 60 94/43 L 02/21/20 15:20 57 L 108/72 02/21/20 15:00 63 124/75 02/21/20 14:47 61 131/72 02/21/20 14:36 63 02/21/20 13:37 36.5 C 61 18 02/21/20 12:00 58 L 18 128/74 02/21/20 10:37 64 18 121/70 02/21/20 08:44 36.4 C L 68 16 118/72 BP Pulse Ox 02/21/20 16:00 02/21/20 15:40 02/21/20 15:20 02/21/20 15:00 02/21/20 14:47 02/21/20 14:36 02/21/20 13:37 137/87 97 02/21/20 12:00 99 02/21/20 10:37 97 02/21/20 08:44 99 Laboratory Results 02/21/20 12:53 02/21/20 02/21/20 02/21/20 09:25 09:25 12:53 WBC 5.58 RBC 3.09 L MCV 97.7 MCH 34.3 H MCHC 35.1 RDW Std Deviation 44.8 RDW Coeff of Ira 12.7 Plt Count 61 L MPV 10.4 Phosphorus Cancelled Albumin 4.1 02/21/20 12:53 WBC RBC MCV MCH MCHC RDW Std Deviation RDW Coeff of Ira Plt Count MPV Phosphorus 9.6 H Albumin
[2020-02-21] MEDS: carvediloL 25 MG TAB PO SCH (19:31)
[2020-02-21] MEDS: ACETAMINOPHEN 325 MG TAB PO PRN (23:37)
[2020-02-22 00:09] LABS: BUN Creatinine Ratio 6.1 (10-20); Est GFR (African American) 2.6; Est GFR (Non-African American) 2.2; Potassium 6.8 mmol/L (3.5-5.1)
[2020-02-22] MEDS ORDERED: CALCIUM GLUCONATE 10% 1,000 MG in SODIUM CHLORIDE 0.9% 50 ML IV STA ×2 (00:13→03:13)
[2020-02-22] MEDS ORDERED: SODIUM BICARB 8.4% INJ 50 MEQ/50 ML SYR IV STA ×2 (00:14→03:13)
[2020-02-22] MEDS ORDERED: INSULIN HUMAN REGULAR PER UNIT 10 UNITS in SYRINGE 9.9 ML IV STA ×2 (00:15→03:13)
[2020-02-22] MEDS ORDERED: DEXTROSE 50% 50 ML SYRINGE IV ONE ×2 (00:15→03:13)
[2020-02-22] MEDS ORDERED: FUROSEMIDE 160 MG in SYRINGE 0 ML IV STA (00:19)
[2020-02-22 02:29] LABS: Hematocrit (blood only) 27.3 % (42-52); Hemoglobin 9.7 g/dL (14.0-18.0); Mean Corpuscular Hemoglobin 35.1 pg (25-34); Mean Corpuscular Hgb Conc 35.5 g/dL (32-36); Mean Corpuscular Volume 98.9 fL (80-100); RDW Coefficient of Variation 12.7 % (11.5-14.5); Red Blood Count 2.76 M/uL (4.7-6.1); White Blood Count 4.21 K/uL (4.8-10.8)
[2020-02-22 03:01] LABS: Mean Platelet Volume 9.6 fL (7.4-10.4); Platelet Count 53 K/uL (130-400)
[2020-02-22 03:03] LABS: Basophils # (auto) 0.01 K/uL (0-0.2); Basophils % (auto) 0.2 %; Eosinophils # (auto) 0.18 K/uL (0-0.5); Eosinophils % (auto) 4.3 %; Giant Platelets 1+; Lymphocytes # (auto) 0.65 K/uL (1.2-3.4); Lymphocytes % (auto) 15.4 %; Monocytes # (auto) 0.56 K/uL (0.11-0.59); Monocytes % (auto) 13.3 %; Neutrophils # (auto) 2.81 K/uL (1.4-6.5); Neutrophils % (auto) 66.8 %
[2020-02-22 03:07] LABS: Calcium 8.2 mg/dl (8.5-10.1); Creatinine Clr Calc Pharmacy 4.9 ml/min; Est GFR (African American) 2.5; Est GFR (Non-African American) 2.2; Potassium 5.9 mmol/L (3.5-5.1)
[2020-02-22] MEDS: LEVOTHYROXINE SODIUM 25 MCG TABLET PO SCH (05:15)
[2020-02-22] MEDS: carvediloL 25 MG TAB PO SCH ×2 (07:55→20:15)
[2020-02-22] MEDS: NEPHROCAPS PO SCH (07:55)
[2020-02-22] MEDS: ATORVASTATIN 40 MG TAB PO SCH (07:56)
[2020-02-22] MEDS: ISOSORBIDE MONO EXTENDED REL 30 MG TABCR PO SCH (07:56)
[2020-02-22] MEDS: TAMSULOSIN HCL 0.4 MG CAP PO SCH (07:56)
[2020-02-22] MEDS: FUROSEMIDE 80 MG TAB PO SCH (07:56)
[2020-02-22] MEDS: PANTOprazole 40 MG in SYRINGE 0 ML IV SCH ×2 (07:57→20:14)
[2020-02-22] MEDS: SEVELAMER HCL 800 MG TABLET PO SCH ×3 (07:57→16:30)
[2020-02-22] MEDS ORDERED: HEPARIN SOD (PORCINE) 1000 UNIT/ML 10 ML VIAL IV ONE (09:00)
--- NOTE | 2020-02-22 09:42 | Nephrology Progress Note ---
Date of Service February 22, 2020 Assessment & Plan (1) ESRD (end stage renal disease): Patient with ESRD on HD MWF. Last outpatient HD was friday but pt likely not getting adequate HD due to AVF malfunction. He is tolerating HD on 02/21/2020 for 4hrs 11K bath for 3 hours.K still high. We will dialyze him today for 3 hours and 1K bath. (2) Dialysis AV fistula malfunction: Patient needs fistulogram. Vascular surgery consult pending (3) Acute hyperkalemia: Will dialyse on 1k bath for 3hr today. He should be on a renal diet. Admission and Anticipated Discharge Date Admission Date: February 21, 2020 Subjective Patient feels better today denies any vomiting or nausea. No diarrhea. He had dialysis yesterday. Potassium is still high. Review of Systems Review of Systems: All systems reviewed & are unremarkable except as noted in HPI & below Physical Exam Physical Exam: General exam: Appears comfortable, no acute distress HEENT: Pupils are equal and reactive to light Neck: No JVD, neck is supple trachea is midline Respiratory system: Clear breath sounds bilaterally. Gastrointestinal: Abdomen is soft, non distended, non tender, bowel sounds are present CVS: Regular rate and rhythm. No murmurs, rubs or gallops Musculoskeletal: No joint or muscle tenderness Extremities: Non tender, no edema, peripheral pulses are present Neuro: Oriented, no tremors, no focal neurological deficits Skin: No rashes Access: AV fistula with a short bruit Results & Data ([facility]) Vital Signs (Past 12 Hours) Vital Signs Temp Pulse Pulse Pulse Resp BP Pulse Ox 02/22/20 07:43 36.8 C 76 18 124/74 98 02/22/20 04:00 36.6 C 65 17 101/69 99 02/22/20 00:00 65 02/21/20 23:56 36.7 C 68 18 123/76 99 Laboratory Results 02/22/20 05:55 02/21/20 02/21/20 02/21/20 09:25 12:53 12:53 WBC RBC MCV MCH MCHC RDW Std Deviation RDW Coeff of Ira Plt Count MPV Phosphorus Cancelled 9.6 H Albumin 4.1 02/22/20 02:17 WBC 4.21 L RBC 2.76 L MCV 98.9 MCH 35.1 H MCHC 35.5 RDW Std Deviation 45.0 RDW Coeff of Ira 12.7 Plt Count 53 L MPV 9.6 Phosphorus Albumin
--- NOTE | 2020-02-22 09:59 | Consultation ---
Date of Consultation February 22, 2020 Assessment & Plan (1) Dialysis AV fistula malfunction: Pt discussed wtih Dr Serrano, recommends pt undergo LUE fistualgram in OR tomorrow. Pt agreeable. Patient was seen, examined, and chart reviewed. Agree with exam and treatment plan of the Vascular PA. Present on Admission?: Yes History of Present Illness Reason for Consultation: malfunctioning LUE AVF Attending Physician: Cholo Choudhary MD History of Present Illness 49 yo m with multiple medical problems, including ESRD on HD, seen in consultation today for malfunctioning LUE AVF. Pt has been utilizing LUE AVF for long time and recently there have been concerns at HD that he is recirculating and not clearing well. Pt denies any pain or issues with his AVF. Denies PRITCHARD, fever, chills, chest pain, SOB, abd pain, N/V, rest pain, claudication, other complaints. Allergies Allergy/AdvReac Type Severity Reaction Status Date / Time Penicillins Allergy Severe ANAPHYLAXIS Verified 02/21/20 10:39 Home Medications Home Medications Medication Instructions Recorded Confirmed Type aspirin [Aspir-81] 81 mg PO PM #0 01/12/14 02/21/20 History atorvastatin 80 mg PO QAM #0 01/12/14 02/21/20 History levothyroxine 25 mcg PO QAM #0 11/02/15 02/21/20 History acetaminophen 500 mg PO Q4H PRN #0 04/23/16 02/21/20 History diphenhydramine HCl [Benadryl] 25 mg PO DAILY PRN #0 04/23/16 02/21/20 History sevelamer carbonate [Renvela] 4,000 mg PO WM #0 08/23/16 02/21/20 History furosemide 160 mg PO QAM #0 tab 02/03/17 02/21/20 History isosorbide mononitrate 30 mg PO QAM #0 tab 11/09/17 02/21/20 History furosemide 80 mg PO QPM #0 tab 03/30/18 02/21/20 History insulin aspart U-100 1 sliding scale dose SUBCUT AC #0 04/25/18 02/21/20 History sevelamer carbonate [Renvela] 2,400 mg PO DIRECTED #0 tab 04/25/18 02/21/20 History tamsulosin 0.4 mg PO DAILY #0 04/25/18 02/21/20 History pantoprazole [Protonix] 40 mg PO QAM 06/16/18 02/21/20 History B complex with C 20-folic acid 1 cap PO DAILY 02/21/20 02/21/20 History [[place] Caps] carvedilol 25 mg PO BID 02/21/20 02/21/20 History lisinopril 40 mg PO DAILY 02/21/20 02/21/20 History Patient History Medical History CAD (coronary artery disease) s/p CABG Chronic CHF Chronic kidney disease STAGE 5-- 3xwk, m,w,f at [facility] follows with dr. roe Congestive heart failure Combined systolic and diastolic, compensated. Echo 2017 showed EF 40-45%. Prior to CABG EF was 30-34%. Diabetes mellitus, type 2 INSULIN DEPENDENT Diabetic neuropathy Diabetic retinopathy Hospitalization or health care facility admission within last 6 months Admitted [facility] 06/24 to 07/10 for peritonitis 2/2 infected peritoneal dialysis catheter, pneumonia. Peritoneal catheter removed, pt now has permacath R upper chest. Hyperlipidemia Hypertension Hyponatremia Hypothyroidism Ischemic cardiomyopathy Myocardial Infarction NSTEMI 02/2014--FOLLOWS W DR. CAMACHO Osteoarthritis Peripheral neuropathy Thrombocytopenia Chronic. Surgical History Fistula PLACED IN L WRIST--DOES NOT WORK and in process of placing new one H/O eye surgery RT/LT History of cardiac cath 02/2014--NO STENTS History of coronary artery bypass graft QUADRIPLE BYPASS @ [facility] 02/2014. History of vascular access device permacath insertion in right side of chest Hx of hernia repair abdominal hernia and removed PD catheter due to infection 06/2018 Family History Mother Family history of reaction to anesthesia VERY GROGGY AFTER 10 HOUR SURGERY Family history of diabetes mellitus Grandfather Family history of diabetes mellitus MATERNAL Family/Other Family history of diabetes mellitus MATERNAL AUNT Family hx of colon cancer Brother Family history of diabetes mellitus Social History Preferred Language: Niuean Communication Ability: Effective Visual Impairment: No Limitations [employer] Director Required: No Beliefs That Will Affect Care: None Current Living Situation: Family Current Living Situation Comment: LIVES WITH BROTHER Feels Safe at Home: Yes Safety Concerns: Feels Safe At This Time Smoking Status: Never smoker Tobacco Type: smokeless tobacco ; Second Hand Exposure: No ; Hx Alcohol Use: No Hx Substance Use: No Review of Systems Review of Systems: All systems reviewed & are unremarkable except as noted in HPI & below Physical Exam Constitutional: WD/WN, vitals as above comfortable; not in distress Respiratory: normal respiratory effort, lungs clear to auscultation Cardiovascular: RRR, no murmur, no edema Vessels: femoral pulses present, posterior tibial pulses present, dorsalis pedis pulses present, brachial pulses present and radial pulses present; + abnormal peripheral pulses Extremities: normal capillary refill and + AV fistula (LUE brachiocephalic avf with pulsatility noted. ); no edema Gastrointestinal (Abdomen): normal bowel sounds, soft, nontender, no hepatosplenomegaly Musculoskeletal: no cyanosis or clubbing, extremities motor strength 5/5 Skin: no rashes, warm and dry Neurologic: moves all extremities; no focal motor deficits and not confused Psychiatric: A+Ox3, euthymic affect Results & Data Vital Signs (Past 12 Hours) Vital Signs Temp Pulse Pulse Pulse Resp BP Pulse Ox 02/22/20 07:43 36.8 C 76 18 124/74 98 02/22/20 04:00 36.6 C 65 17 101/69 99 02/22/20 00:00 65 02/21/20 23:56 36.7 C 68 18 123/76 99
[2020-02-22] MEDS: HEPARIN SOD (PORCINE) 1000 UNIT/ML 10 ML VIAL IV SCH ×3 (12:20→13:50)
[2020-02-22] MEDS ORDERED: DEXTROSE 50% 50 ML SYRINGE IV STA (17:00)
[2020-02-22] MEDS ORDERED: INSULIN HUMAN REGULAR PER UNIT 10 UNITS in SYRINGE 9.9 ML IV ONE (17:15)
[2020-02-22] MEDS: SODIUM POLYSTYRENE SULFONATE 15G/60ML SUSP PO SCH (17:36)
--- NOTE | 2020-02-22 17:56 | Hospitalist Progress Note ---
Date of Service February 22, 2020 Assessment & Plan (1) Acute hyperkalemia: Patient is a 49 yr male with H/O ESRD on HD on MWF schedule, HTN, dyslipidemia, CAD s/p CABG, chronic systolic and diastolic congestive heart failure, DM II, thrombocytopenia, obesity presented to ER with complaint of indigestion, vomiting, diarrhea. Hyperkalemia In setting of ESRD Received calcium gluconate, Insulin,Dextrose, Sodium bicarb Had Dialysis Started on Kayexalate Appreciate Nephrology Input Monitor Electrolytes Repeat EKG in AM Dialysis AV fistula malfunction Vascular surgery consulted Plan for left upper extremity fistulogram tomorrow. N.p.o. after midnight. (2) Nausea vomiting and diarrhea: Resolved Stool for C. difficile if recurrence of diarrhea. (3) Melena: Anemia of CKD Positive Fecal Occult No significant bleeding Monitor H&H, transfuse PRBCs as needed Avoid screen negative Continue PPI Consider GI eval if needed Hb at baseline (4) ESRD (end stage renal disease) on dialysis: On MWF schedule Continue dialysis per nephrology Monitor (5) Coronary artery disease: S/P CABG Continue carvedilol, atorvastatin, isosorbide Will hold aspirin for now (6) Chronic CHF: Chronic systolic and diastolic CHF Continue diuretics Monitor volume status (7) Hypertension: BP stable Held lisinopril due to hyperkalemia Continue carvedilol (8) Diabetes mellitus, type II: A1c: 5.7 on 11/04/19 Hold home insulin Novolog sliding scale per protocol (9) Hypothyroidism: Continue levothyroxine (10) Thrombocytopenia: Chronic thrombocytopenia Followed with Dr Lyons Plt: 61, Plt was 79 on 11/04/2019 Monitor CBC DVT Px SCDs Code Status Full Code Admission and Anticipated Discharge Date Admission Date: February 21, 2020 Subjective Patient is seen and examined at bedside States nausea, vomiting, diarrhea resolved Had hemodialysis today Potassium levels remains elevated Denies any chest pain, SOB, dizziness, abdominal pain Offers no other complaints. Review of Systems Review of Systems: All systems reviewed & are unremarkable except as noted in HPI & below Physical Exam Physical Exam: Physical Exam: Vitals signs as noted above General Appearance:Moderately built and nourished, no apparent distress Head: normocephalic, Atraumatic Eyes: normal inspection, EOMI Neck: supple, Trachea midline Respiratory/Chest: Normal breath sounds, CTA, No accessory muscle use Cardiovascular: S1, S2, No murmur Abdomen/GI:Soft, Non tender, Bowel sounds present Extremities/Musculoskelatal:normal inspection, no edema Neurologic/Psych:AAOX3, grossly no focal neurological deficits Skin: normal color, warm Results & Data Results & Data ([facility]) Vital Signs (Past 12 Hours) Vital Signs Temp Pulse Pulse Pulse Resp BP BP 02/22/20 15:49 36.5 C 62 18 119/75 02/22/20 15:39 64 02/22/20 13:40 64 106/56 L 02/22/20 13:20 64 106/61 02/22/20 13:00 62 111/63 02/22/20 12:40 61 127/68 02/22/20 12:20 61 113/65 02/22/20 12:00 61 108/65 02/22/20 11:40 61 114/68 02/22/20 11:27 63 117/72 02/22/20 11:14 36.8 C 61 02/22/20 07:43 36.8 C 76 18 124/74 Pulse Ox 02/22/20 15:49 100 02/22/20 15:39 02/22/20 13:40 02/22/20 13:20 02/22/20 13:00 02/22/20 12:40 02/22/20 12:20 02/22/20 12:00 02/22/20 11:40 02/22/20 11:27 02/22/20 11:14 02/22/20 07:43 98 Laboratory Results Short CBC 02/22/20 Range/Units 02:17 WBC 4.21 L (4.8-10.8) K/uL Hgb 9.7 L (14.0-18.0) g/dL Hct 27.3 L (42-52) % Plt Count 53 L (130-400) K/uL BMP 02/21/20 02/22/20 02/22/20 23:15 02:17 05:55 Sodium 133 L 135 L Potassium 6.8 H* D 5.9 H 5.6 H Chloride 97 L 97 L Carbon Dioxide 21 23 BUN 130 H 129 H Creatinine 21.30 H* D 21.40 H* Glucose 140 H 107 H Calcium 8.0 L 8.2 L 02/22/20 16:20 Sodium Potassium 6.2 H* Chloride Carbon Dioxide BUN Creatinine Glucose Calcium
[2020-02-22] MEDS ORDERED: CALCIUM GLUCONATE 10% 1,000 MG in SODIUM CHLORIDE 0.9% 50 ML IV ONE (18:15)
[2020-02-22] MEDS: ACETAMINOPHEN 325 MG TAB PO PRN (21:12)
--- NOTE | 2020-02-22 21:56 | Electrocardiogram Report ---
Test Reason : Blood Pressure : / mmHG Vent. Rate : 064 BPM Atrial Rate : 064 BPM P-R Int : 206 ms QRS Dur : 102 ms QT Int : 424 ms P-R-T Axes : 018 -07 082 degrees QTc Int : 437 ms Normal sinus rhythm T wave abnormality, consider lateral ischemia When compared with ECG of 22-OCT-2019 13:05, No significant change was found Confirmed by Sandeep Mckeon ([id number]) on 02/22/2020 9:56:12 PM Referred By: REFERRED SELF Confirmed By:Sandeep Mckeon
[2020-02-23] MEDS ORDERED: CLINDAMYCIN 600 MG in DEXTROSE 5% 50 ML IV ONE ×2 (01:00→10:47)
[2020-02-23] MEDS: LEVOTHYROXINE SODIUM 25 MCG TABLET PO SCH (02:41)
[2020-02-23 06:05] LABS: Hematocrit (blood only) 28.1 % (42-52); Hemoglobin 9.9 g/dL (14.0-18.0); Mean Corpuscular Hemoglobin 34.1 pg (25-34); Mean Corpuscular Hgb Conc 35.2 g/dL (32-36); Mean Corpuscular Volume 96.9 fL (80-100); RDW Coefficient of Variation 12.6 % (11.5-14.5); RDW Standard Deviation 44.7 fL (36.4-46.3); White Blood Count 4.12 K/uL (4.8-10.8)
[2020-02-23 06:09] LABS: Mean Platelet Volume 10.7 fL (7.4-10.4); Platelet Count 55 K/uL (130-400)
[2020-02-23 06:29] LABS: Basophils # (auto) 0.01 K/uL (0-0.2); Basophils % (auto) 0.2 %; Eosinophils # (auto) 0.15 K/uL (0-0.5); Eosinophils % (auto) 3.6 %; Immature Granulocytes # (auto) 0.01 K/uL (0.00-0.02); Immature Granulocytes % (auto) 0.2 %; Lymphocytes # (auto) 0.84 K/uL (1.2-3.4); Lymphocytes % (auto) 20.4 %; Monocytes # (auto) 0.35 K/uL (0.11-0.59); Monocytes % (auto) 8.5 %; Neutrophils # (auto) 2.76 K/uL (1.4-6.5); Neutrophils % (auto) 67.1 %
[2020-02-23 07:01] LABS: Calcium 8.5 mg/dl (8.5-10.1); Creatinine Clr Calc Pharmacy 4.7 ml/min; Est GFR (African American) 2.5; Est GFR (Non-African American) 2.2; Magnesium 2.8 mg/dl (1.8-2.4); Potassium 7.2 mmol/L (3.5-5.1)
[2020-02-23 07:07] LABS: Phosphorus 9.9 mg/dl (2.5-4.9)
[2020-02-23] MEDS ORDERED: HEPARIN SOD (PORCINE) 1000 UNIT/ML 10 ML VIAL IV ONE (07:31)
[2020-02-23] MEDS ORDERED: SODIUM CHLORIDE 0.9% 1000ML 1,000 ML IV PRN (07:31)
[2020-02-23] MEDS ORDERED: ALBUTEROL 0.5% NEB SOLN 2.5 MG/0.5 ML VIAL NEB STA (07:43)
[2020-02-23] MEDS ORDERED: SODIUM BICARB 8.4% INJ 50 MEQ/50 ML SYR IV STA (07:47)
[2020-02-23] MEDS ORDERED: FUROSEMIDE 40 MG in SYRINGE 0 ML IV ONE (08:00)
[2020-02-23] MEDS ORDERED: DEXTROSE 50% 50 ML SYRINGE IV ONE (08:05)
[2020-02-23] MEDS ORDERED: CALCIUM GLUCONATE 10% 1,000 MG in SODIUM CHLORIDE 0.9% 50 ML IV ONE (08:15)
[2020-02-23] MEDS ORDERED: INSULIN HUMAN REGULAR PER UNIT 10 UNITS in SYRINGE 9.9 ML IV ONE (08:15)
[2020-02-23] MEDS: ISOSORBIDE MONO EXTENDED REL 30 MG TABCR PO SCH ×2 (08:26→08:27)
[2020-02-23] MEDS: ATORVASTATIN 40 MG TAB PO SCH (08:27)
[2020-02-23] MEDS: carvediloL 25 MG TAB PO SCH ×2 (08:27→20:21)
[2020-02-23] MEDS: TAMSULOSIN HCL 0.4 MG CAP PO SCH (08:27)
[2020-02-23] MEDS: NEPHROCAPS PO SCH (08:27)
--- NOTE | 2020-02-23 08:27 | Nephrology Progress Note ---
Date of Service February 23, 2020 Assessment & Plan (1) ESRD (end stage renal disease): Patient with ESRD on HD MWF. Last outpatient HD was friday but pt likely not getting adequate HD due to AVF malfunction. He is planned for fistulogram today. Potassium is 7.2. We will dialyze him on a 1K bath for 4 hours prior to fistulogram. (2) Dialysis AV fistula malfunction: Patient needs fistulogram. Vascular surgery plan fistulogram at 1 PM today. (3) Acute hyperkalemia: Will dialyse on 1k bath for 4hr today. He should be on a renal diet. Admission and Anticipated Discharge Date Admission Date: February 21, 2020 Subjective Patient feels well. No shortness of breath or leg swelling. He is planned for fistulogram at 1 PM. Potassium is 7.2. Review of Systems Review of Systems: All systems reviewed & are unremarkable except as noted in HPI & below Physical Exam Physical Exam: General exam: Appears comfortable, no acute distress HEENT: Pupils are equal and reactive to light Neck: No JVD, neck is supple trachea is midline Respiratory system: Clear breath sounds bilaterally. Gastrointestinal: Abdomen is soft, non distended, non tender, bowel sounds are present CVS: Regular rate and rhythm. No murmurs, rubs or gallops Musculoskeletal: No joint or muscle tenderness Extremities: Non tender, no edema, peripheral pulses are present Neuro: Oriented, no tremors, no focal neurological deficits Skin: No rashes Results & Data ([facility]) Vital Signs (Past 12 Hours) Vital Signs Temp Pulse Resp BP Pulse Ox 02/23/20 07:32 36.9 C 67 19 124/75 99 02/23/20 03:57 36.4 C L 86 17 112/68 96 02/22/20 23:45 36.4 C L 65 17 119/63 98 Laboratory Results 02/23/20 05:47 02/23/20 02/23/20 05:47 05:47 WBC 4.12 L RBC 2.90 L MCV 96.9 MCH 34.1 H MCHC 35.2 RDW Std Deviation 44.7 RDW Coeff of Ira 12.6 Plt Count 55 L MPV 10.7 H Phosphorus 9.9 H
[2020-02-23] MEDS: SODIUM POLYSTYRENE SULFONATE 15G/60ML SUSP PO SCH ×3 (08:28→20:23)
[2020-02-23] MEDS: PANTOprazole 40 MG in SYRINGE 0 ML IV SCH ×2 (08:28→20:21)
[2020-02-23] MEDS: SEVELAMER HCL 800 MG TABLET PO SCH ×3 (08:35→17:05)
[2020-02-23] MEDS: HEPARIN SOD (PORCINE) 1000 UNIT/ML 10 ML VIAL IV SCH ×3 (09:40→11:40)
--- NOTE | 2020-02-23 10:37 | History & Physical Bridge Note ---
Date of Service February 23, 2020 History & Physical Bridge Note Patient for a fistulogram with possible intervention today. I have discussed the risks options and benefits of the procedure with the patient. The patient understands the risks options and benefits and agrees to the procedure. I have examined the patient, reviewed the History & Physical and in the interval since the performance of the History & Physical I have noted the following changes of clinical significance: no changes noted
--- NOTE | 2020-02-23 10:38 | Hospitalist Progress Note ---
Date of Service February 23, 2020 Assessment & Plan (1) Acute hyperkalemia: 49 yr male with H/O ESRD on HD on MWF schedule, HTN, dyslipidemia, CAD s/p CABG, chronic systolic and diastolic congestive heart failure, DM II, thrombocytopenia, obesity presented to ER with complaint of indigestion, vom iting, diarrhea. Found to have hyperkalemia Concern for Dialysis AV fistula malfunction Patient got HD yesterday. Still hyperkalemic today Dr Serrano had rescheduled fistulogram scheduled for today due to timing as patient still currently getting HD. I discussed case with Dr Sahu and Maggie. Dr Serrano agreed to reschedule to tomorrow AM Will continue to monitor K and manage medically for now Continue temporizing measures and telemetry monitoring Continue low K renal diet (2) Nausea vomiting and diarrhea: Resolved (3) Melena: Anemia of CKD Positive Fecal Occult No significant bleeding Monitor H&H Hb stable in 9s Continue PPI (4) ESRD (end stage renal disease) on dialysis: On MWF schedule Continue dialysis per nephrology Monitor (5) Coronary artery disease: S/P CABG Continue carvedilol, atorvastatin, isosorbide Will hold aspirin for now (6) Chronic CHF: Chronic systolic and diastolic CHF Continue diuretics Monitor volume status (7) Hypertension: BP stable Held lisinopril due to hyperkalemia Continue carvedilol (8) Diabetes mellitus, type II: A1c: 5.7 on 11/04/19 Hold home insulin Novolog sliding scale per protocol (9) Hypothyroidism: Continue levothyroxine (10) Thrombocytopenia: Chronic thrombocytopenia Followed with Dr Lyons Plt: 55 today. Plt was 79 on 11/04/2019 Monitor CBC DVT Px SCDs Code Status Full Code Admission and Anticipated Discharge Date Admission Date: February 21, 2020 Subjective Patient seen and examined Denied any complaints Review of Systems Constitutional: no fever, no chills and no malaise Ear, Nose, Mouth, Throat: no problem reported Respiratory: no cough, no chest congestion, no dyspnea and no dyspnea on exertion Cardiovascular: no chest pain, no dyspnea on exertion, no orthopnea, no palpitations, no lightheadedness and no syncope Gastrointestinal: no abdominal pain, no nausea, no vomiting, no hematemesis and no diarrhea/loose stools Genitourinary: + decreased urination (chronic); no dysuria, no difficulty urinating and no urinary frequency Neurologic: no problem reported Psychiatric: no problem reported Physical Exam Constitutional: + well hydrated; no acute distress Eyes: PERRL, conjunctivae normal, anicteric sclerae ENMT: external ear and nose normal, oropharynx normal Respiratory: normal respiratory effort, lungs clear to auscultation Cardiovascular: RRR, no murmur, no edema Gastrointestinal (Abdomen): normal bowel sounds, soft, nontender, no hepatosplenomegaly Neurologic: PERRL, EOMI, accommodation nl, no face palsy, no dysarthria Psychiatric: A+Ox3, euthymic affect Results & Data Results & Data ([facility]) Vital Signs (Past 12 Hours) Vital Signs Temp Pulse Pulse Pulse Resp BP BP 02/23/20 10:00 67 96/58 L 02/23/20 09:40 66 100/62 02/23/20 09:20 65 112/61 02/23/20 09:00 67 125/60 02/23/20 08:48 67 137/68 02/23/20 08:40 36.9 C 69 02/23/20 07:32 36.9 C 67 19 124/75 02/23/20 03:57 36.4 C L 86 17 112/68 02/22/20 23:45 36.4 C L 65 17 119/63 Pulse Ox 02/23/20 10:00 02/23/20 09:40 02/23/20 09:20 02/23/20 09:00 02/23/20 08:48 02/23/20 08:40 02/23/20 07:32 99 02/23/20 03:57 96 02/22/20 23:45 98 Laboratory Results Short CBC 02/23/20 Range/Units 05:47 WBC 4.12 L (4.8-10.8) K/uL Hgb 9.9 L (14.0-18.0) g/dL Hct 28.1 L (42-52) % Plt Count 55 L (130-400) K/uL BMP 02/22/20 02/23/20 16:20 05:47 Sodium 134 L Potassium 6.2 H* 7.2 H* D Chloride 97 L Carbon Dioxide 17 L BUN 131 H Creatinine 21.70 H* D Glucose 88 Calcium 8.5
--- NOTE | 2020-02-23 10:53 | Communication Note ---
Date of Service: February 23, 2020 Potassium markedly elevated this am. Undergoing dialysis. Fistulogram scheduled for 1300 today. Repeat K to be done after dialysis. Will not be able to do fisulogram today due to timing. Will have to be rescheduled to Friday.
[2020-02-23] MEDS: FUROSEMIDE 80 MG TAB PO SCH (14:11)
[2020-02-23 14:24] LABS: BUN Creatinine Ratio 6.1 (10-20); Creatinine Clr Calc Pharmacy 5.4 ml/min; Est GFR (Non-African American) 2.6; Potassium 4.8 mmol/L (3.5-5.1)
[2020-02-24] MEDS: LEVOTHYROXINE SODIUM 25 MCG TABLET PO SCH (03:11)
--- NOTE | 2020-02-24 05:55 | Electrocardiogram Report ---
Test Reason : Blood Pressure : / mmHG Vent. Rate : 069 BPM Atrial Rate : 069 BPM P-R Int : 192 ms QRS Dur : 106 ms QT Int : 424 ms P-R-T Axes : 069 020 111 degrees QTc Int : 454 ms Normal sinus rhythm T wave abnormality, consider lateral ischemia Abnormal ECG When compared with ECG of 21-FEB-2020 09:16, No significant change was found Confirmed by Sandeep Mckeon ([id number]) on 02/24/2020 5:55:07 AM Referred By: REFERRED SELF Confirmed By:Sandeep Mckeon
[2020-02-24 07:46] LABS: Hematocrit (blood only) 24.7 % (42-52); Hemoglobin 8.7 g/dL (14.0-18.0); Mean Corpuscular Hemoglobin 34.3 pg (25-34); Mean Corpuscular Hgb Conc 35.2 g/dL (32-36); Mean Corpuscular Volume 97.2 fL (80-100); RDW Coefficient of Variation 12.5 % (11.5-14.5); RDW Standard Deviation 44.5 fL (36.4-46.3); Red Blood Count 2.54 M/uL (4.7-6.1); White Blood Count 3.74 K/uL (4.8-10.8)
[2020-02-24] MEDS ORDERED: LIDOCAINE HCL 1% 20 ML VIAL ONE (07:48)
--- NOTE | 2020-02-24 07:49 | History & Physical Bridge Note ---
Date of Service February 24, 2020 History & Physical Bridge Note Awaiting potassium result. If elevated will place permcath. If not elevated will attempt a fistulogram with possible intervention and place a permcath if fistula can not be intervened on. I have discussed the risks options and benefits of the procedure with the patient. The patient understands the risks options and benefits and agrees to the procedure. I have examined the patient, reviewed the History & Physical and in the interval since the performance of the History & Physical I have noted the following changes of clinical significance: no changes noted
[2020-02-24] MEDS ORDERED: CLINDAMYCIN 600 MG/54 ML D5W IV ONE (08:00)
[2020-02-24 08:19] LABS: Mean Platelet Volume 10.6 fL (7.4-10.4); Platelet Count 53 K/uL (130-400)
[2020-02-24] MEDS ORDERED: HEPARIN SOD (PORCINE) 5,000 UNITS/ML VIAL ONE (08:28)
--- NOTE | 2020-02-24 08:29 | Pre Anesthesia Assessment ---
Date of Service February 24, 2020 Pre Sedation Assessment Vital Signs Temp Pulse Pulse Pulse Pulse Resp BP 02/24/20 07:20 36.7 C 68 18 02/24/20 07:03 62 02/24/20 04:00 36.7 C 74 18 02/23/20 23:49 36.9 C 98 H 70 17 02/23/20 19:26 36.7 C 65 18 02/23/20 16:00 67 02/23/20 15:10 36.8 C 68 18 02/23/20 13:53 36.8 C 76 20 02/23/20 13:02 36.9 C 69 02/23/20 12:20 66 108/58 L 02/23/20 12:00 70 106/60 02/23/20 11:40 70 118/67 02/23/20 11:20 65 110/65 02/23/20 11:00 64 109/61 02/23/20 10:49 64 94/57 L 02/23/20 10:48 64 18 02/23/20 10:20 67 111/64 02/23/20 10:00 67 96/58 L 02/23/20 09:40 66 100/62 02/23/20 09:20 65 112/61 02/23/20 09:00 67 125/60 02/23/20 08:48 67 137/68 02/23/20 08:40 36.9 C 69 BP Pulse Ox 02/24/20 07:20 136/82 99 02/24/20 07:03 02/24/20 04:00 146/77 H 99 02/23/20 23:49 153/80 H 98 02/23/20 19:26 142/76 H 100 02/23/20 16:00 02/23/20 15:10 132/73 99 02/23/20 13:53 123/71 98 02/23/20 13:02 123/64 02/23/20 12:20 02/23/20 12:00 02/23/20 11:40 02/23/20 11:20 02/23/20 11:00 02/23/20 10:49 02/23/20 10:48 96 02/23/20 10:20 02/23/20 10:00 02/23/20 09:40 02/23/20 09:20 02/23/20 09:00 02/23/20 08:48 02/23/20 08:40 Cardiovascular RRR, no murmur, no edema Respiratory normal respiratory effort, lungs clear to auscultation Pre-Sedation Airway Assessment Smoking Status: Never smoker Hx Sleep Apnea: No Short, Thick Neck: No Thyromental Distance: > or= 3.5 Finger Breadths Oral Cavity: + WNL Mallampati Class: II ASA: ASA3 NPO Status Date of Last Intake of Fluids: 02/23/20 Time of Last Intake of Fluids: 21:00 Date of Last Intake of Solid Food: 02/23/20 Time of Last Intake of Solid Foods: 21:00 Procedure Planning Contraindications for Sedation: none Current Medications Reviewed: Yes Notes The planned sedation has been discussed with the patient. Informed Consent was obtained. I have identified the patient, determined the appropriateness of sedation and have assessed the patient immediately prior to the procedure. All medicine(s) and interventions are by my order.
[2020-02-24 08:32] LABS: BUN Creatinine Ratio 5.8 (10-20); Calcium 8.7 mg/dl (8.5-10.1); Creatinine Clr Calc Pharmacy 4.9 ml/min; Est GFR (African American) 2.6; Est GFR (Non-African American) 2.3; Phosphorus 9.2 mg/dl (2.5-4.9)
[2020-02-24] MEDS ORDERED: MIDAZOLAM HCL 1 MG/ML 2ML VIAL ONE (08:45)
[2020-02-24] MEDS ORDERED: fentaNYL citrate 100 MCG/2 ML VIAL ONE (08:45)
--- NOTE | 2020-02-24 09:26 | Operative Report ---
Post Operative Report Pre & Post Diagnosis Operation Date: 02/24/20 08:00 Pre-Op Diagnosis: Malfuncntioning Fistula Post-Op Diagnosis: Malfuncntioning Fistula Operation Date: 02/25/20 11:05 <No data on this case meets the specified criteria> I identified the patient and participated in the time-out.: Yes Procedure Operation Date: 02/24/20 08:00 Actual Procedures p Perm Catheter Placement Right Jugular Approach, Ultrasound Localization of Right Jugular Vein, Fluoroscopy for Positioning, Moderate Sedation [id number](Right) - Michael Serrano MD Operation Date: 02/25/20 11:05 <No data on this case meets the specified criteria> Surgeon Michael Serrano MD Head Bone Grinder None Estimated Blood Loss 10 Findings Consistent with Post-Op Diagnosis Specimens none Anesthesia Type RN Sedation Complications none Disposition Accompanied Patient To Recovery: No Disposition: Recovery Room Indications This is a 49-year-old male who has a left arm fistula which is malfunctioning. He cannot clear his potassium. He was run yesterday through the fistula again his potassium is high. We decided to place a PermCath for dialysis to clear his potassium and then do a fistulogram tomorrow. I have discussed the risks options and benefits of the procedure with the patient. The patient understands the risks options and benefits and agrees to the procedure. Description of Procedure Patient was taken to the angio suite and placed in the supine position. The right side of the neck and chest wall were prepped and draped in a sterile manner. The patient was identified and a timeout performed. Local anesthesia was then administered to the appropriate areas of the neck and chest wall. Ultrasound was then used to locate the right internal jugular vein. The vein compressed easily, had no filing defects, and was patent. The vein was then punctured under direct ultrasound imaging. A guidewire could not be passed centrally under fluoroscopic imaging. We then inserted a 5 Moroccan sheath over the wire. Using the 5 Moroccan sheath and angled Glidewire the very vena cava was cannulated from the internal jugular right side. Once this was done the the small dilator was placed. The wire was then exchanged to the usual PermCath wire. A stab wound was then made in the anterior chest wall and a 19 cm permca th was passed from the stab wound on the chest wall to the puncture site on the neck. The puncture site was then dilated till the 14Fr peel away sheath was inserted. The permcath was then inserted through the sheath to a central position in the distal superior vena cava. The peel away sheath was then removed. The catheter was then sutured in place using nylon sutures. The puncture was then closed using a 4-0 Vicryl subcuticular suture. Dermabond was used for a dressing on the puncture site. Both ports aspirated and flushed easily and were then packed with heparin. A sterile dressing was applied to the catheter. The patient left the operation room in satisfactory condition and tolerated the procedure well. All needle and sponge counts were correct at the end of the procedure. I attest to the content of the Intraoperative Record and any orders documented therein. Any exceptions are noted below.
[2020-02-24] MEDS: NEPHROCAPS PO SCH (09:51)
[2020-02-24] MEDS: carvediloL 25 MG TAB PO SCH ×2 (09:51→20:28)
[2020-02-24] MEDS: ATORVASTATIN 40 MG TAB PO SCH (09:51)
[2020-02-24] MEDS: SEVELAMER HCL 800 MG TABLET PO SCH ×3 (09:52→15:32)
[2020-02-24] MEDS: SODIUM POLYSTYRENE SULFONATE 15G/60ML SUSP PO SCH ×2 (09:52→20:27)
[2020-02-24] MEDS: TAMSULOSIN HCL 0.4 MG CAP PO SCH (09:52)
[2020-02-24] MEDS: FUROSEMIDE 80 MG TAB PO SCH (09:52)
[2020-02-24] MEDS ORDERED: HEPARIN SOD (PORCINE) 1000 UNIT/ML 10 ML VIAL IV ONE (10:06)
[2020-02-24] MEDS ORDERED: SODIUM CHLORIDE 0.9% 1000ML 1,000 ML IV PRN (10:06)
[2020-02-24] MEDS: PANTOprazole 40 MG in SYRINGE 0 ML IV SCH ×2 (10:39→20:26)
--- NOTE | 2020-02-24 10:52 | Nephrology Progress Note ---
Date of Service February 24, 2020 Assessment & Plan (1) ESRD (end stage renal disease): Patient with ESRD on HD MWF. Last outpatient HD was friday but pt likely not getting adequate HD due to AVF malfunction. He is planned for fistulogram tomorrow. Potassium is 6. We will dialyze him on a 1K bath for 2 hours and 2K bath for 2 hours today. (2) Dialysis AV fistula malfunction: Patient needs fistulogram. Vascular surgery plan fistulogram tomorrow (3) Acute hyperkalemia: Will dialyse on 1k bath for 2hr and 2K bath for 2 hours today. Continue renal diet. Admission and Anticipated Discharge Date Admission Date: February 21, 2020 Subjective Patient had a right tunneled IJ catheter placed this morning. No shortness of breath. He is planned for dialysis today. Review of Systems Review of Systems: All systems reviewed & are unremarkable except as noted in HPI & below Physical Exam 2 Physical Exam: General exam: Appears comfortable, no acute distress HEENT: Pupils are equal and reactive to light Neck: No JVD, neck is supple trachea is midline Respiratory system: Clear breath sounds bilaterally. Gastrointestinal: Abdomen is soft, non distended, non tender, bowel sounds are present CVS: Regular rate and rhythm. No murmurs, rubs or gallops Musculoskeletal: No joint or muscle tenderness Extremities: Non tender, no edema, peripheral pulses are present Neuro: Oriented, no tremors, no focal neurological deficits Skin: No rashes Access: Right tunneled IJ catheter. Left AV fistula Results & Data ([facility]) Vital Signs (Past 12 Hours) Vital Signs Temp Pulse Pulse Pulse Resp BP Pulse Ox 02/24/20 09:47 36.9 C 64 18 160/90 H 100 02/24/20 09:30 64 13 133/72 98 02/24/20 09:25 65 13 155/80 H 100 02/24/20 09:20 65 13 164/87 H 100 02/24/20 09:15 66 19 161/88 H 100 02/24/20 09:10 67 19 167/93 H 100 02/24/20 09:05 69 19 174/90 H 100 02/24/20 09:00 67 19 163/89 H 100 02/24/20 08:50 68 14 166/93 H 100 02/24/20 07:20 36.7 C 68 18 136/82 99 02/24/20 07:03 62 02/24/20 04:00 36.7 C 74 18 146/77 H 99 02/23/20 23:49 36.9 C 98 H 70 17 153/80 H 98 Laboratory Results 02/24/20 07:06 02/24/20 02/24/20 07:06 07:06 WBC 3.74 L RBC 2.54 L MCV 97.2 MCH 34.3 H MCHC 35.2 RDW Std Deviation 44.5 RDW Coeff of Ira 12.5 Plt Count 53 L MPV 10.6 H Phosphorus 9.2 H
--- NOTE | 2020-02-24 12:49 | Hospitalist Progress Note ---
Date of Service February 24, 2020 Assessment & Plan (1) Acute hyperkalemia: 49 yr male with H/O ESRD on HD on MWF schedule, HTN, dyslipidemia, CAD s/p CABG, chronic systolic and diastolic congestive heart failure, DM II, thrombocytopenia, obesity presented to ER with complaint of indigestion, vom iting, diarrhea. Found to have hyperkalemia Concern for Dialysis AV fistula malfunction Potassium came down to 4.8 yesterday after HD and temporizing measures However, went up to 6 again this AM Got HD permacath this morning. Getting HD via this Planned for fistulogram tomorrow morning. NPO PMN Will monitor K levels Continue temporizing measures and telemetry monitoring Continue low K renal diet Health Care Facility Administrator recommendations noted (2) Nausea vomiting and diarrhea: Resolved (3) Melena: Anemia of CKD Positive Fecal Occult No significant bleeding Monitor H&H Hb stable in 9s Continue PPI (4) ESRD (end stage renal disease) on dialysis: On MWF schedule Continue dialysis per nephrology Monitor (5) Coronary artery disease: S/P CABG Continue carvedilol, atorvastatin, isosorbide Will hold aspirin for now (6) Chronic CHF: Chronic systolic and diastolic CHF Continue diuretics Monitor volume status (7) Hypertension: BP stable Held lisinopril due to hyperkalemia Continue carvedilol (8) Diabetes mellitus, type II: A1c: 5.7 on 11/04/19 Hold home insulin Novolog sliding scale per protocol (9) Hypothyroidism: Continue levothyroxine (10) Thrombocytopenia: Chronic thrombocytopenia Followed with Dr Lyons Plt: 53 today. Plt was 79 on 11/04/2019 Monitor CBC DVT Px SCDs Code Status Full Code Admission and Anticipated Discharge Date Admission Date: February 21, 2020 Subjective Patient seen and examined Reported some dizziness and nausea when he had a hypotensive episode during HD that has resolved Getting HD via HD cath placed today Planned for fistulogram tomorrow Physical Exam Constitutional: + well hydrated; no acute distress Eyes: PERRL, conjunctivae normal, anicteric sclerae ENMT: external ear and nose normal, oropharynx normal Respiratory: normal respiratory effort, lungs clear to auscultation Cardiovascular: RRR, no murmur, no edema Gastrointestinal (Abdomen): normal bowel sounds, soft, nontender, no hepatosplenomegaly Neurologic: PERRL, EOMI, accommodation nl, no face palsy, no dysarthria Psychiatric: A+Ox3, euthymic affect Results & Data Results & Data ([facility]) Vital Signs (Past 12 Hours) Vital Signs Temp Pulse Pulse Pulse Resp BP BP 02/24/20 12:20 64 130/77 02/24/20 12:00 64 135/82 02/24/20 11:40 64 145/81 H 02/24/20 11:20 60 148/83 H 02/24/20 11:11 36.9 C 62 02/24/20 10:30 36.9 C 61 14 149/83 H 02/24/20 10:15 36.9 C 64 14 154/83 H 02/24/20 10:00 36.9 C 63 14 163/85 H 02/24/20 09:48 36.9 C 64 14 160/90 H 02/24/20 09:47 36.9 C 64 18 160/90 H 02/24/20 09:30 64 13 133/72 02/24/20 09:25 65 13 155/80 H 02/24/20 09:20 65 13 164/87 H 02/24/20 09:15 66 19 161/88 H 02/24/20 09:10 67 19 167/93 H 02/24/20 09:05 69 19 174/90 H 02/24/20 09:00 67 19 163/89 H 02/24/20 08:50 68 14 166/93 H 02/24/20 07:20 36.7 C 68 18 136/82 02/24/20 07:03 62 02/24/20 04:00 36.7 C 74 18 146/77 H Pulse Ox 02/24/20 12:20 02/24/20 12:00 02/24/20 11:40 02/24/20 11:20 02/24/20 11:11 02/24/20 10:30 97 02/24/20 10:15 97 02/24/20 10:00 99 02/24/20 09:48 100 02/24/20 09:47 100 02/24/20 09:30 98 02/24/20 09:25 100 02/24/20 09:20 100 02/24/20 09:15 100 02/24/20 09:10 100 02/24/20 09:05 100 02/24/20 09:00 100 02/24/20 08:50 100 02/24/20 07:20 99 02/24/20 07:03 02/24/20 04:00 99 Laboratory Results Short CBC 02/24/20 Range/Units 07:06 WBC 3.74 L (4.8-10.8) K/uL Hgb 8.7 L (14.0-18.0) g/dL Hct 24.7 L (42-52) % Plt Count 53 L (130-400) K/uL BMP 02/24/20 02/24/20 07:06 12:11 Sodium 135 L Potassium 6.0 H D 4.1 D Chloride 97 L Carbon Dioxide 20 L BUN 121 H Creatinine 20.90 H* D Glucose 83 Calcium 8.7
[2020-02-24] MEDS: ACETAMINOPHEN 325 MG TAB PO PRN ×2 (15:31→20:28)
[2020-02-24] MEDS ORDERED: HYDROmorphone INJ 0.5 MG/0.5 ML SYR IV STA (21:32)
[2020-02-25] MEDS: LEVOTHYROXINE SODIUM 25 MCG TABLET PO SCH (04:11)
[2020-02-25] MEDS ORDERED: CLINDAMYCIN 600 MG/54 ML BAG IV SCH (06:00)
[2020-02-25 06:28] LABS: Hematocrit (blood only) 24.7 % (42-52); Hemoglobin 8.8 g/dL (14.0-18.0); Mean Corpuscular Hemoglobin 34.5 pg (25-34); Mean Corpuscular Hgb Conc 35.6 g/dL (32-36); Mean Corpuscular Volume 96.9 fL (80-100); RDW Coefficient of Variation 12.3 % (11.5-14.5); RDW Standard Deviation 43.8 fL (36.4-46.3); Red Blood Count 2.55 M/uL (4.7-6.1); White Blood Count 3.33 K/uL (4.8-10.8)
[2020-02-25 06:51] LABS: Mean Platelet Volume 9.9 fL (7.4-10.4); Platelet Count 46 K/uL (130-400)
[2020-02-25 07:18] LABS: BUN Creatinine Ratio 4.4 (10-20); Calcium 8.8 mg/dl (8.5-10.1); Creatinine Clr Calc Pharmacy 8.7 ml/min; Est GFR (Non-African American) 4.3; Potassium 4.6 mmol/L (3.5-5.1)
[2020-02-25] MEDS ORDERED: CLINDAMYCIN 600 MG in DEXTROSE 5% 50 ML IV ONE (08:00)
[2020-02-25] MEDS: carvediloL 25 MG TAB PO SCH ×2 (08:44→20:45)
[2020-02-25] MEDS: NEPHROCAPS PO SCH (08:44)
[2020-02-25] MEDS: ISOSORBIDE MONO EXTENDED REL 30 MG TABCR PO SCH (08:44)
[2020-02-25] MEDS: ATORVASTATIN 40 MG TAB PO SCH (08:44)
[2020-02-25] MEDS: TAMSULOSIN HCL 0.4 MG CAP PO SCH (08:44)
[2020-02-25] MEDS: PANTOprazole 40 MG in SYRINGE 0 ML IV SCH ×2 (08:44→20:45)
[2020-02-25] MEDS: FUROSEMIDE 80 MG TAB PO SCH (08:44)
[2020-02-25] MEDS: ACETAMINOPHEN 325 MG TAB PO PRN ×2 (08:47→20:44)
[2020-02-25] MEDS: SODIUM POLYSTYRENE SULFONATE 15G/60ML SUSP PO SCH ×2 (08:47→20:45)
[2020-02-25] MEDS: SEVELAMER HCL 800 MG TABLET PO SCH ×3 (08:50→17:00)
[2020-02-25] MEDS ORDERED: LIDOCAINE HCL 1% 20 ML VIAL ONE (09:00)
--- NOTE | 2020-02-25 09:21 | History & Physical Bridge Note ---
Date of Service February 25, 2020 History & Physical Bridge Note Patient for a fisutlogram with possible intervention today. I have discussed the risks options and benefits of the procedure with the patient. The patient understands the risks options and benefits and agrees to the procedure. I have examined the patient, reviewed the History & Physical and in the interval since the performance of the History & Physical I have noted the following changes of clinical significance: no changes noted
--- NOTE | 2020-02-25 10:02 | Pre Anesthesia Assessment ---
Date of Service February 25, 2020 Pre Sedation Assessment Vital Signs Temp Pulse Pulse Pulse Resp BP BP 02/25/20 09:24 36.7 C 67 18 163/72 H 02/25/20 08:22 36.5 C 64 16 131/65 02/25/20 02:39 36.8 C 68 16 149/79 H 02/25/20 00:20 36.5 C 66 16 147/76 H 02/24/20 19:43 36.5 C 69 20 162/91 H 02/24/20 15:44 36.7 C 79 19 162/90 H 02/24/20 15:20 36.7 C 62 156/79 H 02/24/20 15:00 73 162/88 H 02/24/20 14:45 72 154/81 H 02/24/20 14:30 71 151/75 H 02/24/20 14:20 72 02/24/20 14:15 69 148/83 H 02/24/20 14:00 70 146/82 H 02/24/20 13:45 70 142/72 H 02/24/20 13:30 70 147/81 H 02/24/20 13:15 68 134/75 02/24/20 13:00 65 133/71 02/24/20 12:50 64 120/69 02/24/20 12:40 69 146/83 H 02/24/20 12:36 70 78/45 L 02/24/20 12:20 64 130/77 02/24/20 12:00 64 135/82 02/24/20 11:40 64 145/81 H 02/24/20 11:20 60 148/83 H 02/24/20 11:11 36.9 C 62 02/24/20 10:30 36.9 C 61 14 149/83 H 02/24/20 10:15 36.9 C 64 14 154/83 H Pulse Ox 02/25/20 09:24 100 02/25/20 08:22 98 02/25/20 02:39 95 02/25/20 00:20 98 02/24/20 19:43 99 02/24/20 15:44 98 02/24/20 15:20 02/24/20 15:00 02/24/20 14:45 02/24/20 14:30 02/24/20 14:20 02/24/20 14:15 05/14/20 14:00 02/24/20 13:45 02/24/20 13:30 02/24/20 13:15 02/24/20 13:00 02/24/20 12:50 02/24/20 12:40 02/24/20 12:36 02/24/20 12:20 02/24/20 12:00 02/24/20 11:40 02/24/20 11:20 02/24/20 11:11 02/24/20 10:30 97 02/24/20 10:15 97 Cardiovascular RRR, no murmur, no edema Respiratory normal respiratory effort, lungs clear to auscultation Pre-Sedation Airway Assessment Smoking Status: Never smoker Hx Sleep Apnea: No Short, Thick Neck: No Thyromental Distance: > or= 3.5 Finger Breadths Oral Cavity: + WNL Mallampati Class: II ASA: ASA3 NPO Status Date of Last Intake of Fluids: 02/24/20 Time of Last Intake of Fluids: 21:00 Date of Last Intake of Solid Food: 02/24/20 Time of Last Intake of Solid Foods: 21:00 Procedure Planning Contraindications for Sedation: none Current Medications Reviewed: Yes Notes The planned sedation has been discussed with the patient. Informed Consent was obtained. I have identified the patient, determined the appropriateness of sedation and have assessed the patient immediately prior to the procedure. All medicine(s) and interventions are by my order.
--- NOTE | 2020-02-25 10:03 | Nephrology Progress Note ---
Date of Service February 25, 2020 Assessment & Plan (1) ESRD (end stage renal disease): Patient with ESRD on HD MWF. Last outpatient HD was friday but pt likely not getting adequate HD due to AVF malfunction. He is planned for fistulogram today. Potassium is 4.6. Electrolytes are stable and no signs of volume overload. No indication for dialysis today. We will dialyze him tomorrow for 3 hours and patient can be discharged after dialysis tomorrow if clinically stable. (2) Dialysis AV fistula malfunction: Patient needs fistulogram. Vascular surgery plan fistulogram today (3) Acute hyperkalemia: He has improved after adequate dialysis yesterday. Continue renal diet. Admission and Anticipated Discharge Date Admission Date: February 21, 2020 Subjective Patient seen in the waiting room prior to his fistulogram. He feels better today denies any shortness of breath or vomiting. He tolerated dialysis well yesterday but had an episode of nausea and intradialytic hypotension during dialysis. His K is better today at 4.6. Review of Systems Review of Systems: All systems reviewed & are unremarkable except as noted in HPI & below Physical Exam Physical Exam: General exam: Appears comfortable, no acute distress HEENT: Pupils are equal and reactive to light Neck: No JVD, neck is supple trachea is midline Respiratory system: Clear breath sounds bilaterally. Gastrointestinal: Abdomen is soft, non distended, non tender, bowel sounds are present CVS: Regular rate and rhythm. No murmurs, rubs or gallops Musculoskeletal: No joint or muscle tenderness Extremities: Non tender, no edema, peripheral pulses are present Neuro: Oriented, no tremors, no focal neurological deficits Skin: No rashes Access: Right IJ catheter and left upper arm AV fistula Results & Data ([facility]) Vital Signs (Past 12 Hours) Vital Signs Temp Pulse Resp BP Pulse Ox 02/25/20 09:24 36.7 C 67 18 163/72 H 100 02/25/20 08:22 36.5 C 64 16 131/65 98 02/25/20 02:39 36.8 C 68 16 149/79 H 95 02/25/20 00:20 36.5 C 66 16 147/76 H 98 Laboratory Results 02/25/20 06:17 02/25/20 06:17 WBC 3.33 L RBC 2.55 L MCV 96.9 MCH 34.5 H MCHC 35.6 RDW Std Deviation 43.8 RDW Coeff of Ira 12.3 Plt Count 46 L MPV 9.9
[2020-02-25] MEDS ORDERED: fentaNYL citrate 100 MCG/2 ML VIAL ONE (10:12)
[2020-02-25] MEDS ORDERED: MIDAZOLAM HCL 1 MG/ML 2ML VIAL ONE (10:12)
[2020-02-25] MEDS ORDERED: VISIPAQUE IV ONE (10:52)
--- NOTE | 2020-02-25 10:57 | Procedure Note ---
Angiogram Post Procedure Fluoroscopy Time (minutes): 2.3 Conscious Sedation Time (minutes): 31 Radiation (mGy): 94 Contrast: 25 Post Operative Report Pre & Post Diagnosis Operation Date: 02/24/20 08:00 Pre-Op Diagnosis: Malfuncntioning Fistula Post-Op Diagnosis: Malfuncntioning Fistula Operation Date: 02/25/20 11:05 Pre-Op Diagnosis: Malfunctioning Fistula Post-Op Diagnosis: Malfunctioning Fistula I identified the patient and participated in the time-out.: Yes Procedure Operation Date: 02/24/20 08:00 Actual Procedures p Perm Catheter Placement Right Jugular Approach, Ultrasound Localization of Right Jugular Vein, Fluoroscopy for Positioning, Moderate Sedation 0900-(Right) - Michael Serrano MD Operation Date: 02/25/20 11:05 Actual Procedures p Left arm fistulogram, Percutaneous Transluminal Angioplasty And Stenting of Left Cephalic Main, Moderate Sedation from [id number](Left) - Michael Serrano MD Surgeon Michael Serrano MD Mobile Ui Designer None Estimated Blood Loss 5 Findings Consistent with Post-Op Diagnosis Specimens None Anesthesia Type RN Sedation Complications none Disposition Accompanied Patient To Recovery: No Disposition: Recovery Room Indications This is a 49-year-old male with a fistula in his left arm which is not flowing well. He is recirculating and not clearing his potassium. Fistulogram with possible invention was recommended. I have discussed the risks options and benefits of the procedure with the patient. The patient understands the risks options and benefits and agrees to the procedure. Description of Procedure The patient was taken to the angiogram suite and placed in the supine position. The left arm was then prepped and draped in a sterile manner. The patient was identified and a timeout performed. Local anesthetic was administered and a percutaneous puncture was then made of the proximal portion of the left arm AV fistula using micropuncture technique. Micropuncture wire and sheath were then inserted. A fistulogram was then performed. The fistulogram revealed a stenosis in the upper third of the fistula in the little shell tribe cephalic vein also a occlusive lesion at the distal cephalic vein just prior to the subclavian. The micropuncture sheath was exchanged to a 5 [place] sheath. 035 Glidewire was able to be passed beyond these lesions. A 6 x 8 balloon was then used to dilate the cephalic vein lesions. The more proximal and dilated up nicely. The distal lesion still had a residual stenosis. We then exchanged the 5 [place] sheath to a 6 [place] sheath and we dilated this distal cephalic vein using an 8 x 4 conquest balloon. This again looks slightly better however there is still significant narrowing noted and recoil. We decided to insert a 9 x 4 absolute stent across the lesion. Post stenting there was a small amount of narrowing just proximal to the stent which most likely was spasm. This was then re- dilated with a 6 in the 8 balloons. Much better results were noted. There was a thrill in the fistula at that time. The wire and sheath were then pulled and pressure was applied. Adequate hemostasis was obtained. The patient left the angiogram suite in good condition and tolerated the procedure well. I attest to the content of the Intraoperative Record and any orders documented therein. Any exceptions are noted below.
--- NOTE | 2020-02-25 10:58 | Post Anesthesia Assessment ---
Date of Service February 25, 2020 Post Sedation Assessment Vital Signs Temp Pulse Pulse Pulse Resp BP BP 02/25/20 10:54 64 14 152/81 H 02/25/20 10:49 65 14 162/85 H 02/25/20 10:48 65 14 162/85 H 02/25/20 10:43 48 L 14 147/80 H 02/25/20 10:38 53 L 14 153/84 H 02/25/20 10:33 55 L 14 161/81 H 02/25/20 10:28 58 L 12 164/90 H 02/25/20 10:23 59 L 12 170/93 H 02/25/20 10:17 65 12 167/95 H 02/25/20 09:24 36.7 C 67 18 163/72 H 02/25/20 08:22 36.5 C 64 16 131/65 02/25/20 02:39 36.8 C 68 16 149/79 H 02/25/20 00:20 36.5 C 66 16 147/76 H 02/24/20 19:43 36.5 C 69 20 162/91 H 02/24/20 15:44 36.7 C 79 19 162/90 H 02/24/20 15:20 36.7 C 62 156/79 H 02/24/20 15:00 73 162/88 H 02/24/20 14:45 72 154/81 H 02/24/20 14:30 71 151/75 H 02/24/20 14:20 72 02/24/20 14:15 69 148/83 H 02/24/20 14:00 70 146/82 H 02/24/20 13:45 70 142/72 H 02/24/20 13:30 70 147/81 H 02/24/20 13:15 68 134/75 02/24/20 13:00 65 133/71 02/24/20 12:50 64 120/69 02/24/20 12:40 69 146/83 H 02/24/20 12:36 70 78/45 L 02/24/20 12:20 64 130/77 02/24/20 12:00 64 135/82 02/24/20 11:40 64 145/81 H 02/24/20 11:20 60 148/83 H 02/24/20 11:11 36.9 C 62 Pulse Ox 02/25/20 10:54 95 02/25/20 10:49 100 02/25/20 10:48 100 02/25/20 10:43 100 02/25/20 10:38 100 02/25/20 10:33 100 02/25/20 10:28 100 02/25/20 10:23 100 02/25/20 10:17 100 02/25/20 09:24 100 02/25/20 08:22 98 02/25/20 02:39 95 02/25/20 00:20 98 02/24/20 19:43 99 02/24/20 15:44 98 02/24/20 15:20 02/24/20 15:00 02/24/20 14:45 02/24/20 14:30 02/24/20 14:20 02/24/20 14:15 02/24/20 14:00 02/24/20 13:45 02/24/20 13:30 02/24/20 13:15 02/24/20 13:00 02/24/20 12:50 02/24/20 12:40 02/24/20 12:36 02/24/20 12:20 02/24/20 12:00 02/24/20 11:40 02/24/20 11:20 02/24/20 11:11 Recovery Score Activity: Moves 4 extremities Respiration: Deep Breath/Cough Circulation: +/-20% PreAnes Value Consciousness: Fully Awake Oxygen Saturation: > 92% On Room Air Post Anesthesia Score: 10 Discharge Sedation Level of Care: Fast Track Phase II Post Sedation Plan On clinical assessment, the patient appears to have tolerated the sedation without complications. Patient is recovering as anticipated. Patient will continue to be monitored by nursing and may be discharged when sedation discharge criteria are met per below protocol. Upon Completions of procedure up to 15 minutes continue every 5 minute vital signs and the P.A.R. score; then discharge to a Phase I or Fast Track to Phase II per the following guidelines: * Discharge Patient to appropriate Phase II area if PAR is 8 or greater or return to pre- procedure baseline. The post - procedure orders will be as directed. * If PAR score is less than 8 or not return to pre-procedure baseline then patient will follow Phase I monitoring till PAR is reached for Phase II. The Phase I may be done in procedure room or may call to secure a Phase I area. * If naloxone or flumazenil are used for reversal, hold in Phase I for continued monitoring from when last reversal dose was given for a minimum of 60 minutes or longer pending the nurse and/or physician discretion of patient condition before discharge to Phase II. Please call the Sedation Physician to re-evaluate and complete post-note for discharge to Phase II area. Do NOT discharge from procedure sedation or Phase 1 until post- sedation evaluation note is complete by procedure /sedation MD Sedation Discharge Instructions to be given to the patient at discharge to home.
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
[2020-02-25 15:07] VITALS: O2SAT 99
[2020-02-26] MEDS ORDERED: HYDROmorphone INJ 0.5 MG/0.5 ML SYR IV STA (00:06)
[2020-02-26] MEDS: LEVOTHYROXINE SODIUM 25 MCG TABLET PO SCH (02:59)
[2020-02-26 06:46] LABS: Hematocrit (blood only) 21.6 % (42-52); Hemoglobin 7.9 g/dL (14.0-18.0); Mean Corpuscular Hemoglobin 35.1 pg (25-34); Mean Corpuscular Hgb Conc 36.6 g/dL (32-36); RDW Coefficient of Variation 12.4 % (11.5-14.5); RDW Standard Deviation 43.1 fL (36.4-46.3); Red Blood Count 2.25 M/uL (4.7-6.1); White Blood Count 3.55 K/uL (4.8-10.8)
[2020-02-26 06:51] LABS: Platelet Count 51 K/uL (130-400)
[2020-02-26 07:24] LABS: BUN Creatinine Ratio 4.4 (10-20); Calcium 8.4 mg/dl (8.5-10.1); Creatinine Clr Calc Pharmacy 7.5 ml/min; Est GFR (African American) 4.2; Est GFR (Non-African American) 3.6; Potassium 4.4 mmol/L (3.5-5.1)
[2020-02-26] MEDS ORDERED: HEPARIN SOD (PORCINE) 1000 UNIT/ML 10 ML VIAL IV ONE (07:50)
[2020-02-26] MEDS ORDERED: SODIUM CHLORIDE 0.9% 1000ML 1,000 ML IV PRN (07:50)
[2020-02-26 07:53] VITALS: TEMP 97.9
[2020-02-26] MEDS ORDERED: EPOETIN ALFA 10,000 UNITS/ML VIAL IV SCH (08:00)
[2020-02-26] MEDS: FUROSEMIDE 80 MG TAB PO SCH (08:25)
[2020-02-26] MEDS: ISOSORBIDE MONO EXTENDED REL 30 MG TABCR PO SCH (08:25)
[2020-02-26] MEDS: ATORVASTATIN 40 MG TAB PO SCH (08:25)
[2020-02-26] MEDS: TAMSULOSIN HCL 0.4 MG CAP PO SCH (08:25)
[2020-02-26] MEDS: carvediloL 25 MG TAB PO SCH (08:26)
[2020-02-26] MEDS: PANTOprazole 40 MG in SYRINGE 0 ML IV SCH (08:26)
[2020-02-26] MEDS: NEPHROCAPS PO SCH (08:26)
[2020-02-26] MEDS: SODIUM POLYSTYRENE SULFONATE 15G/60ML SUSP PO SCH (08:27)
[2020-02-26] MEDS: SEVELAMER HCL 800 MG TABLET PO SCH ×2 (08:27→13:02)
--- NOTE | 2020-02-26 09:54 | Discharge Summary ---
Date of Service February 26, 2020 Admission HPI Per Admitting Provider Pt is 49 y/o M with PMH ESRD on HD on MWF schedule, HTN, dyslipidemia, CAD s/p CABG, chronic systolic and diastolic congestive heart failure, DM II, thrombocytopenia, obesity presented to ER with complaint of indigestion, vomiting, diarrhea. Patient complains of heartburn sensation for the past 1.5 weeks. He states for the past 5-6 days has been vomiting every other day 1-2 episodes. Also reports last 5 days with loose stool having 1-2 episodes daily. Patient states this morning vomited and had drop of blood in it. Patient states his been taking Pepto-Bismol last couple of days. Past 3 days has noticed raphael to black-colored stools. Today having muscle aches mostly to legs. Denies any abdominal pain. Still makes a little bit of urine, denies any dysuria, hematuria. Denies CP, SOB, dizziness, palpitations. Denies fever/chills, diaphoresis, hematochezia, PRITCHARD, syncope, vision changes, neck pain, orthopnea, cough, sore throat, choking, otalgia, rhinorrhea, abdominal pain, paresthesias, extremity weakness, extremity edema, rashes. Admission Exam Per Admitting Provider General: no acute distress, obese Head: normocephalic, atraumatic Eyes: PERRL, EOM's intact, conjunctiva non-injected, anicteric ENT: normal inspection external ears, nose, mucous membranes moist Neck: supple, trachea midline Lungs: clear, no respiratory distress, no wheezing/rhonchi/rales CV: RRR, no murmur, no pretibial edema Abd: normal BS, soft, non-tender Ext: no cyanosis, no calf tenderness; palpable thrill to left arm fistula Neuro: A&O x 3, no focal deficits noted, normal affect Skin: warm, dry Principal Diagnosis Hyperkalemia AVF malfunction s/p Fistulogram, Percutaneous transluminal angioplasty and stenting Discharge Exam Constitutional + well hydrated; no acute distress Eyes PERRL, conjunctivae normal, anicteric sclerae ENMT external ear and nose normal, oropharynx normal Respiratory normal respiratory effort, lungs clear to auscultation Cardiovascular RRR, no murmur, no edema Chest (Breasts) Additional Comments: Permacath on right anterior chest wall Gastrointestinal (Abdomen) normal bowel sounds, soft, nontender, no hepatosplenomegaly Neurologic PERRL, EOMI, accommodation nl, no face palsy, no dysarthria Psychiatric A+Ox3, euthymic affect Discharge Data Allergies Allergy/AdvReac Type Severity Reaction Status Date / Time Penicillins Allergy Severe ANAPHYLAXIS Verified 02/24/20 07:17 Consultations 02/21/20 09:52 Consult Nephrology Stat 02/21/20 10:21 ED Decision to Admit Stat 02/21/20 13:47 Consult Case Management - Discharge Planning Routine Consult Nephrology Routine 02/21/20 16:35 Consult Vascular Surgery Routine Procedures Performed Operation Date: 02/24/20 08:00 Actual Procedures p Perm Catheter Placement Right Jugular Approach, Ultrasound Localization of Right Jugular Vein, Fluoroscopy for Positioning, Moderate Sedation 0900-(Right) - Michael Serrano MD Operation Date: 02/25/20 11:05 Actual Procedures p Left Fistulogram, Percutaneous Transluminal Angioplasty And Stenting of Left Cephalic Main, Moderate Sedation from [id number](Left) - Michael Serrano MD Ordered Studies 02/24/20 08:28 EV cvc insrt tnnl with prt/fur feeder Routine 02/24/20 08:29 US EV guide vascular access Routine 02/25/20 13:00 EV angio arteriovenous shunt Routine Hospital Course (1) Acute hyperkalemia: 49 yr male with H/O ESRD on HD on MWF schedule, HTN, dyslipidemia, CAD s/p CABG, chronic systolic and diastolic congestive heart failure, DM II, thrombocytopenia, obesity presented to ER with complaint of indigestion, vomiting, diarrhea. Found to have hyperkalemia due to Dialysis AV fistula malfunction Potassium was 7.8 on admission, peaked at 8.2 Required temporizing measures and HD Potassium has been stable since after dialysis via permacath placed on 02/24/20. Today potassium is 4.4 Patient had PTCA and stent placement and left Cephalic on 02/25/20 Got HD today prior to discharge Resume regular HD Please keep permacath for at least 2 weeks to ensure AVF is working properly prior to removal Follow up with nephrology (2) Nausea vomiting and diarrhea: Resolved (3) Melena: Anemia of CKD Positive Fecal Occult No significant bleeding Monitor H&H Continue PPI (4) ESRD (end stage renal disease) on dialysis: On MWF schedule Continue dialysis per nephrology Monitor (5) Coronary artery disease: S/P CABG Continue carvedilol, atorvastatin, isosorbide (6) Chronic CHF: Chronic systolic and diastolic CHF Continue diuretics Monitor volume status (7) Hypertension: BP stable Held lisinopril due to hyperkalemia Resume now hyperkalemia is resolved Continue carvedilol (8) Diabetes mellitus, type II: A1c: 5.7 on 11/04/19 Continue home insulin (9) Hypothyroidism: Continue levothyroxine (10) Thrombocytopenia: Chronic thrombocytopenia Followed with Dr Lyons Plt: 51 today. Plt was 79 on 11/04/2019 Total Time Total Time Spent Total Time Spent (In Minutes): 45 Total Time Includes: Examination of the Patient, Discharge Planning, Medication Reconciliation and Communication With Other Providers Discharge Plan Discharge Items Patient Disposition: Home - Self-Care Reason For Visit: HYPERKALEMIA Discharge Diagnosis: Hyperkalemia AVF malfunction s/p Fistulogram, Percutaneous transluminal angioplasty and stenting Activity: Resume your previous activity Non-emergency contact: Primary Care Provider and Coding Director Call non-emergency contact if: you have any medication questions Follow-up/Referrals: Dalton Marcelino MD [Primary Care Provider] - Diet: Dialysis Renal and Low Potassium (2gm) Addtl Attending Provider Instructions: Mr Tapia. You came to the hospital complaining of indigestion, vomiting and diarrhea. Evaluation showed hyperkalemia (elevated potassium levels) You required evaluation by vascular surgeon for malfunction of your dialysis fistula. You got a permacath for dialysis for now. Your symptoms have all resolved and hyperkalemia resolved too. Please continue to follow up with your Coding Director (kidney doctor) and continue hemodialysis. Please keep dialysis catheter in for at least 2 weeks to ensure fistula is working. Your kidney doctor will let you know when it can be removed It was a pleasure taking care of you. Pending Studies at Discharge: No Stand-Alone Forms: My [employer], Smoking Cessation Medications and DC Order Prescriptions: Continued atorvastatin 80 mg Tablet 80 mg PO QAM Qty: 0 RF: 0 aspirin [Aspir-81] 81 mg Tablet,Delayed Release (Dr/Ec) 81 mg PO PM Qty: 0 RF: 0 levothyroxine 25 mcg Tablet 25 mcg PO QAM Qty: 0 RF: 0 acetaminophen 500 mg Tablet 500 mg PO Q4H PRN (Reason: Pain) Qty: 0 RF: 0 diphenhydramine HCl [Benadryl] 25 mg Capsule 25 mg PO DAILY PRN (Reason: Allergic Reaction) Qty: 0 RF: 0 sevelamer carbonate [Renvela] 800 mg Tablet 4,000 mg PO WM Qty: 0 RF: 0 furosemide 80 mg Tablet 160 mg PO QAM Qty: 0 RF: 0 isosorbide mononitrate 30 mg Tablet Extended Release 24 Hr 30 mg PO QAM Qty: 0 RF: 0 furosemide 80 mg Tablet 80 mg PO QPM Qty: 0 RF: 0 tamsulosin 0.4 mg Capsule 0.4 mg PO DAILY Qty: 0 RF: 0 insulin aspart U-100 100 unit/mL Solution 1 sliding scale dose SUBCUT AC Qty: 0 RF: 0 sevelamer carbonate [Renvela] 800 mg Tablet 2,400 mg PO DIRECTED Qty: 0 RF: 0 pantoprazole [Protonix] 40 mg Tablet,Delayed Release (Dr/Ec) 40 mg PO QAM RF: 0 lisinopril 40 mg Tablet 40 mg PO DAILY RF: 0 carvedilol 25 mg tablet 25 mg PO BID RF: 0 Ruslan Caps 1 mg capsule 1 cap PO DAILY RF: 0 Discharge Orders: Discharge Order (Routine); Ordered 02/26/20 Ordered By: Anjelica Li Admission Data Admit Date/Time: 02/21/20 11:14 Attending Provider: Anjelica Li I. Admit Provider: Dennis Smith Primary Care Provider: Dalton Marcelino Other Providers: Demarco Sahu ; Cholo Choudhary ; Michael Serrano Other Interventions: Discharge Summary Assessment (RN) Last Done: 02/26/20 13:19 DC Date/Time DO NOT enter until pt leaves facility: 02/26/20 15:12
--- NOTE | 2020-02-26 10:39 | Nephrology Progress Note ---
Date of Service February 26, 2020 Assessment & Plan (1) ESRD (end stage renal disease): Patient with ESRD on HD MWF. Last outpatient HD was friday but pt likely not getting adequate HD due to AVF malfunction. He is planned for fistulogram today. Potassium is 4.6. Electrolytes are stable and no signs of volume overload. Patient is tolerating dialysis well today. From renal standpoint he can be discharged after dialysis. Next dialysis will be on Friday outpatient (2) Dialysis AV fistula malfunction: Patient status post fistulogram and stenting of his AV fistula. Please keep in dialysis catheter for at least 2 weeks to ensure fistula is running well. (3) Acute hyperkalemia: Has improved after adequate dialysis yesterday. Continue renal diet. Admission and Anticipated Discharge Date Admission Date: February 21, 2020 Subjective Patient was seen and examined while on dialysis. He has one needle in the AV fistula and another in the catheter. No shortness of breath or pain. He had fistulogram yesterday. Review of Systems Review of Systems: All systems reviewed & are unremarkable except as noted in HPI & below Physical Exam Physical Exam: General exam: Appears comfortable, no acute distress HEENT: Pupils are equal and reactive to light Neck: No JVD, neck is supple trachea is midline Respiratory system: Clear breath sounds bilaterally. Gastrointestinal: Abdomen is soft, non distended, non tender, bowel sounds are present CVS: Regular rate and rhythm. No murmurs, rubs or gallops Musculoskeletal: No joint or muscle tenderness Extremities: Non tender, no edema, peripheral pulses are present Neuro: Oriented, no tremors, no focal neurological deficits Skin: No rashes Results & Data ([facility]) Vital Signs (Past 12 Hours) Vital Signs Temp Pulse Pulse Pulse Resp BP BP 02/26/20 10:21 62 137/75 02/26/20 10:00 61 128/65 02/26/20 09:33 36.6 C 62 02/26/20 07:52 36.6 C 87 18 148/77 H 02/26/20 03:14 36.7 C 72 19 168/83 H 02/26/20 03:09 62 02/26/20 00:12 36.6 C 65 18 149/79 H Pulse Ox 02/26/20 10:21 02/26/20 10:00 02/26/20 09:33 02/26/20 07:52 99 02/26/20 03:14 99 02/26/20 03:09 02/26/20 00:12 99 Laboratory Results 02/26/20 06:33 02/26/20 06:33 WBC 3.55 L RBC 2.25 L MCV 96.0 MCH 35.1 H MCHC 36.6 H RDW Std Deviation 43.1 RDW Coeff of Ira 12.4 Plt Count 51 L MPV 10.0
[2020-02-26] MEDS: HEPARIN SOD (PORCINE) 1000 UNIT/ML 10 ML VIAL IV SCH ×3 (10:58→12:53)
[2020-02-26 15:52] VITALS: BP 155/81; PULSE 72
== END 2020-02-26 15:12 | disposition home or self-care (01) | DRG 252 ==
LOC: ED 08:36 → 2S 11:14 → SUATTDRO 11:14 → 2S 12:38

== ENCOUNTER 2020-05-25 20:35 | Inpatient (IN) ==
[2020-05-25] MEDS ORDERED: VANCOMYCIN CONSULT ACTIVE PRN (20:44)
[2020-05-25] MEDS ORDERED: VANCOMYCIN HCL 2,250 MG in SODIUM CHLORIDE 0.9% 500 ML IV ONE (20:44)
--- NOTE | 2020-05-25 21:02 | Emergency Department Note ---
History of Present Illness General Chief complaint: Abnormal Labs/Diagnostic Testing Stated complaint: EMERGENCY ROOM CALLED FOR ABNORMAL LABS Time Seen by Provider: 05/25/20 20:44 History of Present Illness Provider complaint: Fever positive blood culture Onset (ago): day(s) 1 Associated symptoms: + fever/chills 49-year-old male end-stage renal disease on hemodialysis Friday presented to the emergency department for fever and positive blood culture. Patient was in the emergency department last night had blood cultures drawn which showed gram-positive cocci in clusters. Patient was to be admitted but left AMA. He was called and told to come back into the emergency department today. He states his T-max today was 99.6. Otherwise asymptomatic. Daniel that he was prescribed yesterday before he came to the emergency department tonight. Home Medications Home Medications Medication Instructions Recorded Confirmed Type aspirin [Aspir-81] 81 mg PO PM #0 01/12/14 05/25/20 History atorvastatin 80 mg PO QAM #0 01/12/14 05/25/20 History levothyroxine 25 mcg PO QAM #0 11/02/15 05/25/20 History acetaminophen 500 mg PO Q4H PRN #0 04/23/16 05/25/20 History diphenhydramine HCl [Benadryl] 25 mg PO DAILY PRN #0 04/23/16 05/25/20 History sevelamer carbonate [Renvela] 4,000 mg PO WM #0 08/23/16 05/25/20 History furosemide [Lasix] 160 mg PO QAM #0 tab 02/03/17 05/25/20 History isosorbide mononitrate 30 mg PO QAM #0 tab 11/09/17 05/25/20 History furosemide 80 mg PO QPM #0 tab 03/30/18 05/25/20 History insulin aspart U-100 1 sliding scale dose SUBCUT AC #0 04/25/18 05/25/20 History sevelamer carbonate [Renvela] 2,400 mg PO DIRECTED #0 tab 04/25/18 05/25/20 History tamsulosin 0.4 mg PO QAM #0 04/25/18 05/25/20 History pantoprazole [Protonix] 40 mg PO QAM 06/16/18 05/25/20 History [place] Caps 1 cap PO QAM 02/21/20 05/25/20 History carvedilol 25 mg PO BID 02/21/20 05/25/20 History lisinopril 40 mg PO QAM 02/21/20 05/25/20 History Velt[place] 8.4 g PO HS 04/12/20 05/25/20 History oxycodone-acetaminophen [Percocet] 1 tab PO Q6H PRN #20 tab 04/18/20 05/25/20 Rx doxycycline hyclate 100 mg PO BID 7 Days #14 tab 05/24/20 05/25/20 Rx levofloxacin [Levaquin] 250 mg PO Q48H 7 Days #2 tab 05/24/20 05/25/20 Rx Allergies Allergy/AdvReac Type Severity Reaction Status Date / Time Penicillins Allergy Severe ANAPHYLAXIS Verified 05/24/20 22:08 Past Med/Surg History Medical History Anemia due to end stage renal disease CAD (coronary artery disease) s/p CABG in 2013 Chronic kidney disease STAGE 5-- 3xwk, m,w,f at [facility] Follows with dr. jyothi Silvaacatarnaud located to right upper chest Congestive heart failure Combined systolic and diastolic, compensated. Echo 2017 showed EF 40-45%. Prior to CABG EF was 30-34%. Diabetes mellitus, type 2 INSULIN DEPENDENT Diabetic neuropathy Diabetic retinopathy BOTH EYES OPERATED ON Hyperlipidemia Hypertension Hypothyroidism Ischemic cardiomyopathy Myocardial Infarction NSTEMI 02/2014--FOLLOWS W DR. CAMACHO Osteoarthritis Peripheral neuropathy Thrombocytopenia Chronic. Surgical History Fistula PLACED IN L WRIST--DOES NOT WORK and in process of placing new one H/O eye surgery RT/LT History of cardiac cath 02/2014--NO STENTS History of coronary artery bypass graft QUADRIPLE BYPASS @ [facility] 02/2014. History of vascular access device permacath insertion in right side of chest Hx of hernia repair abdominal hernia and removed PD catheter due to infection 06/2018 Family History Mother Family history of reaction to anesthesia VERY GROGGY AFTER 10 HOUR SURGERY Family history of diabetes mellitus Grandfather Family history of diabetes mellitus MATERNAL Family/Other Family history of diabetes mellitus MATERNAL AUNT Family hx of colon cancer Brother Family history of diabetes mellitus Social History Smoking Status: Never smoker Second Hand Exposure: Yes ( A CHILD, BOTH PARENTS); Hx Alcohol Use: No (NOT IN YEARS) Hx Substance Use: No Preferred Language: Kinyarwanda Communication Ability: Effective Visual Impairment: No Limitations Drug Worker Required: No Beliefs That Will Affect Care: None Current Living Situation: Family Current Living Situation Comment: BROTHER DALE Feels Safe at Home: Yes Review of Systems A total of 10 systems reviewed and were otherwise negative Physical Exam Vital Signs Vital Signs - 24 hr 05/25/20 20:38 05/25/20 22:04 Temperature 37.7 C H Temperature Source Oral Pulse Rate 76 Pulse Rate [Finger] 72 Pulse Rhythm [Finger] Regular Pulse Strength [Finger] Normal Respiratory Rate 18 18 Respiratory Effort / Characteristics Non-Labored Spontaneous Non-Labored Respiratory Depth Normal Normal Respiratory Pattern Regular Blood Pressure 134/62 Blood Pressure [Right Arm] 130/68 Blood Pressure Mean 86 Blood Pressure Mean [Right Arm] 88 Blood Pressure Position [Right Arm] Lying Pulse Oximetry 99 98 Oxygen Delivery Method Room Air Room Air Nasal Cannula Sepsis Recent Fever Within 48 Hours Yes Sepsis New/Unexplained Change in Mental Status N/A Sepsis Action Taken by Nursing No Action Required Physical Exam GENERAL: He is oriented to person, place, and time. He appears well-developed and well-nourished. He does not appear distressed. HENT: Exam performed. - Head: Normocephalic and atraumatic. - Right Ear: External ear normal. No mastoid tenderness. - Left Ear: External ear normal. No mastoid tenderness. - Mouth/Throat: The oropharynx is clear and moist. No trismus in the jaw. No dental abscesses or uvula swelling. No oropharyngeal exudate or tonsillar abscesses. EYES: Conjunctivae and EOM are normal. Pupils are equal, round, and reactive to light. Right eye exhibits no discharge. Left eye exhibits no discharge. No scleral icterus. NECK: Normal range of motion. Neck supple. No JVD present. No spinous process tenderness present. No carotid bruit present. No rigidity. No tracheal deviation and normal range of motion present. No Brudzinski's sign and no Kernig's sign noted. CV: Normal rate, regular rhythm, normal heart sounds and intact distal pulses. There is no peripheral edema. Palpable radial pulses bue. PULM/CHEST: Effort normal and breath sounds normal. No respiratory distress. No stridor. He has no wheezes. He has no rales. - Chest Wall: Permacath right chest with no surrounding erythema. ABD: The abdomen is soft. Bowel sounds are normal. He has no distension. No mass is present. There is no tenderness. There is no rebound, no guarding, no Hunt's sign and no tenderness at McBurney's point. Rovsig negative. MUSC/SKEL: Normal range of motion. There is no peripheral edema, tenderness or deformity. LYMPH: No cervical adenopathy. NEURO: He is alert and oriented to person, place, and time. He has normal strength. No cranial nerve deficit or sensory deficit. Coordination and gait normal. GCS eye subscore is 4. GCS verbal subscore is 5. GCS motor subscore is 6. Cerebellar tests wnl. SKIN: Skin is warm and dry. He is not diaphoretic. PSYCH: He has a normal mood and affect. Behavior is normal. Judgment and thought content normal. Course Course 2043: The patient was evaluated in room A9 A complete history and physical exam was performed. Cardiac monitoring: An order was placed for continuous cardiac monitoring. The monitor shows a rate of 75 with sinus rhythm EMR reviewed. Patient was seen in the emergency department yesterday. White blood cell count was within normal limits. His procalcitonin was elevated. His potassium was within normal limits. Patient left AMA after receiving vanc omycin. There is no from pharmacy states that the patient received adequate amount of vancomycin yesterday and no other vancomycin should be needed today. Patient did take his dose of Levaquin tonight and therefore no antibiotics should be needed at this time. [facility] the patient [facility] their service as was planned yesterday. 2105: [facility] who is asking that we speak with vascular surgery at [facility] to make sure that the patient does not need to be transferred given it is thought that the permacath is a potential source of infection. He states we do not have vascular coverage as Dr. Serrano is not currently available for next [address] Hung states he would like me to speak with [facility] before he admits the patient. 2139: Discussed with Dr. Ballesteros vascular surgery at [facility] who states IR handles permacath at her facility however she does not feel like the patient needs to be emergently transferred at this time. Dr. Hung was notified. Administered Medications Discontinued Medications Vancomycin HCl 2,250 mg/ (Sodium Chloride) 545 mls @ 200 mls/hr IV NOW ONE Stop: 05/25/20 23:27 Last Admin: 05/25/20 22:03 Dose: Not Given Documented by: [id number] Medical Decision Making Laboratory Data Result diagrams: 05/25/20 21:35 05/25/20 21:35 Lab Results 05/25/20 05/25/20 05/25/20 Range/Units 21:35 21:35 21:35 WBC 7.70 (4.8-10.8) K/uL RBC 2.94 L (4.7-6.1) M/uL Hgb 9.9 L (14.0-18.0) g/dL POC Hgb (14.0-18.0) g/dl Hct 28.3 L (42-52) % POC Hct (42-52) % MCV 96.3 (80-100) fL MCH 33.7 (25-34) pg MCHC 35.0 (32-36) g/dL RDW Std Deviation 49.4 H (36.4-46.3) fL RDW Coeff of Ira 14.1 (11.5-14.5) % Plt Count 113 L (130-400) K/uL MPV 9.7 (7.4-10.4) fL Immature Gran % (Auto) 0.1 % Neut % (Auto) 74.1 % Lymph % (Auto) 17.0 % [place] % (Auto) 7.0 % Eos % (Auto) 1.7 % Baso % (Auto) 0.1 % Neut # (Auto) 5.70 (1.4-6.5) K/uL Lymph # (Auto) 1.31 (1.2-3.4) K/uL [place] # (Auto) 0.54 (0.11-0.59) K/uL Eos # (Auto) 0.13 (0-0.5) K/uL Baso # (Auto) 0.01 (0-0.2) K/uL Immature Gran # (Auto) 0.01 (0.00-0.02) K/uL POC Sodium (135-144) mmol/L Sodium 134 L (136-145) mmol/L POC Potassium (3.3-5.0) mmol/L Potassium 3.3 L (3.5-5.1) mmol/L POC Chloride (101-112) mmol/L Chloride 96 L (98-107) mmol/L Carbon Dioxide 28 (21-32) mmol/L POC Total CO2 (24-31) mmol/L Anion Gap 10.0 (3-11) POC Anion Gap (16-25) mmol/L POC BUN (7-18) mg/dl BUN 34 H D (7-18) mg/dl Creatinine 9.56 H* D (0.6-1.4) mg/dl POC Creatinine (0.6-1.3) mg/dl Est Cr Clr Drug Dosing 11.0 ml/min Est GFR ( Amer) 6.7 Est GFR (Non-Af Amer) 5.8 BUN/Creatinine Ratio 3.6 L (10-20) Glucose 177 H (70-99) mg/dl POC Glucose (other) (70-99) mg/dl Lactate 1.2 (0.4-2.0) mmol/L Calcium 9.3 (8.5-10.1) mg/dl POC Ioniz Calcium Elizabeth (1.12-1.32) mmol/l Magnesium 2.2 (1.8-2.4) mg/dl Specimen Hemolysis COVID-19 Eval Order 05/25/20 05/25/20 05/25/20 Range/Units 21:35 21:41 22:35 WBC (4.8-10.8) K/uL RBC (4.7-6.1) M/uL Hgb (14.0-18.0) g/dL POC Hgb 9.5 L (14.0-18.0) g/dl Hct (42-52) % POC Hct 28 L (42-52) % MCV (80-100) fL MCH (25-34) pg MCHC (32-36) g/dL RDW Std Deviation (36.4-46.3) fL RDW Coeff of Ira (11.5-14.5) % Plt Count (130-400) K/uL MPV (7.4-10.4) fL Immature Gran % (Auto) % Neut % (Auto) % Lymph % (Auto) % [place] % (Auto) % Eos % (Auto) % Baso % (Auto) % Neut # (Auto) (1.4-6.5) K/uL Lymph # (Auto) (1.2-3.4) K/uL [place] # (Auto) (0.11-0.59) K/uL Eos # (Auto) (0-0.5) K/uL Baso # (Auto) (0-0.2) K/uL Immature Gran # (Auto) (0.00-0.02) K/uL POC Sodium 135 (135-144) mmol/L Sodium (136-145) mmol/L POC Potassium 3.3 (3.3-5.0) mmol/L Potassium (3.5-5.1) mmol/L POC Chloride 93 L (101-112) mmol/L Chloride (98-107) mmol/L Carbon Dioxide (21-32) mmol/L POC Total CO2 26 (24-31) mmol/L Anion Gap (3-11) POC Anion Gap 20.0 (16-25) mmol/L POC BUN 32 H (7-18) mg/dl BUN (7-18) mg/dl Creatinine (0.6-1.4) mg/dl POC Creatinine 9.9 H* (0.6-1.3) mg/dl Est Cr Clr Drug Dosing ml/min Est GFR ( Amer) Est GFR (Non-Af Amer) BUN/Creatinine Ratio (10-20) Glucose (70-99) mg/dl POC Glucose (other) 176 H (70-99) mg/dl Lactate (0.4-2.0) mmol/L Calcium (8.5-10.1) mg/dl POC Ioniz Calcium Elizabeth 1.15 (1.12-1.32) mmol/l Magnesium Cancelled (1.8-2.4) mg/dl Specimen Hemolysis COVID-19 Eval Order Covid19 Done at [facility] ECG Data Indication: + other (Arrhythmia) Rate (beats per minute): 71 Rhythm: + normal sinus ECG Intervals/blocks: + Normal QRS, + Normal GA and + Normal QT-c ECG ST segments: + Normal ST segments [facility] Narrative 2043: The patient was evaluated in room A9 A complete history and physical exam was performed. Cardiac monitoring: An order was placed for continuous cardiac monitoring. The monitor shows a rate of 75 with sinus rhythm EMR reviewed. Patient was seen in the emergency department yesterday. White blood cell count was within normal limits. His procalcitonin was elevated. His potassium was within normal limits. Patient left AMA after receiving vancomycin. There is no from pharmacy states that the patient received adequate amount of vancomycin yesterday and no other vancomycin should be needed today. Patient did take his dose of Levaquin tonight and therefore no antibiotics should be needed at this time. Will contact the [facility] hospitalist team to discuss admitting the patient to their service as was planned yesterday. 2105: Discussed with Dr. Hung [facility] hospitalist who is asking that we speak with vascular surgery at [facility] to make sure that the patient does not need to be transferred given it is thought that the permacath is a potential source of infection. He states we do not have vascular coverage as Dr. Serrano is not currently available for next [address] Hung states he would like me to speak with [facility] before he admits the patient. 2139: Discussed with Dr. Ballesteros vascular surgery at [facility] who states IR handles permacath at her facility however she does not feel like the patient needs to be emergently transferred at this time. Dr. Hung was notified. Impression & Plan Bacteremia Discharge Plan Visit Data Chief Complaint: Abnormal Labs/Diagnostic Testing Stated Complaint: EMERGENCY ROOM CALLED FOR ABNORMAL LABS ED Provider: Sky Dailey Discharge Problem: Bacteremia Patient Disposition: Being Evaluated by Hospitalist Forms Stand Alone Forms: My [facility] Prescriptions Prescriptions: No Action atorvastatin 80 mg Tablet 80 mg PO QAM Qty: 0 RF: 0 aspirin [Aspir-81] 81 mg Tablet,Delayed Release (Dr/Ec) 81 mg PO PM Qty: 0 RF: 0 levothyroxine 25 mcg Tablet 25 mcg PO QAM Qty: 0 RF: 0 acetaminophen 500 mg Tablet 500 mg PO Q4H PRN (Reason: Pain) Qty: 0 RF: 0 diphenhydramine HCl [Benadryl] 25 mg Capsule 25 mg PO DAILY PRN (Reason: Allergic Reaction) Qty: 0 RF: 0 sevelamer carbonate [Renvela] 800 mg Tablet 4,000 mg PO WM Qty: 0 RF: 0 furosemide [Lasix] 80 mg Tablet 160 mg PO QAM Qty: 0 RF: 0 isosorbide mononitrate 30 mg Tablet Extended Release 24 Hr 30 mg PO QAM Qty: 0 RF: 0 furosemide 80 mg Tablet 80 mg PO QPM Qty: 0 RF: 0 tamsulosin 0.4 mg Capsule 0.4 mg PO QAM Qty: 0 RF: 0 insulin aspart U-100 100 unit/mL Solution 1 sliding scale dose SUBCUT AC Qty: 0 RF: 0 sevelamer carbonate [Renvela] 800 mg Tablet 2,400 mg PO DIRECTED Qty: 0 RF: 0 [place] 8.4 gram Powder In Packet 8.4 g PO HS RF: 0 oxycodone-acetaminophen [Percocet] 5-325 mg tablet 1 tab PO Q6H PRN (Reason: pain) Qty: 20 RF: 0 doxycycline hyclate 100 mg tablet 100 mg PO BID 7 Days Qty: 14 RF: 0 levofloxacin [Levaquin] 500 mg tablet 250 mg PO Q48H 7 Days Qty: 2 RF: 0 pantoprazole [Protonix] 40 mg Tablet,Delayed Release (Dr/Ec) 40 mg PO QAM RF: 0 lisinopril 40 mg Tablet 40 mg PO QAM RF: 0 carvedilol 25 mg tablet 25 mg PO BID RF: 0 [place] Caps 1 mg capsule 1 cap PO QAM RF: 0 Referrals Referrals: Dalton Marcelino MD [Primary Care Provider] -
[2020-05-25 21:45] LABS: Basophils # (auto) 0.01 K/uL (0-0.2); Basophils % (auto) 0.1 %; Eosinophils # (auto) 0.13 K/uL (0-0.5); Eosinophils % (auto) 1.7 %; Hematocrit (blood only) 28.3 % (42-52); Hemoglobin 9.9 g/dL (14.0-18.0); Immature Granulocytes # (auto) 0.01 K/uL (0.00-0.02); Immature Granulocytes % (auto) 0.1 %; Lymphocytes # (auto) 1.31 K/uL (1.2-3.4); Mean Corpuscular Hemoglobin 33.7 pg (25-34); Mean Corpuscular Volume 96.3 fL (80-100); Mean Platelet Volume 9.7 fL (7.4-10.4); Monocytes # (auto) 0.54 K/uL (0.11-0.59); Neutrophils % (auto) 74.1 %; Platelet Count 113 K/uL (130-400); RDW Coefficient of Variation 14.1 % (11.5-14.5); RDW Standard Deviation 49.4 fL (36.4-46.3); Red Blood Count 2.94 M/uL (4.7-6.1)
[2020-05-25 21:54] LABS: iSTAT Creatinine 9.9 mg/dl (0.6-1.3); iSTAT Hemoglobin 9.5 g/dl (14.0-18.0); iSTAT Ionized Calcium 1.15 mmol/l (1.12-1.32); iSTAT Potassium 3.3 mmol/L (3.3-5.0)
[2020-05-25 22:13] LABS: BUN Creatinine Ratio 3.6 (10-20); Calcium 9.3 mg/dl (8.5-10.1); Est GFR (African American) 6.7; Est GFR (Non-African American) 5.8; Potassium 3.3 mmol/L (3.5-5.1)
[2020-05-25] MEDS ORDERED: ACETAMINOPHEN 325 MG TAB PO STA (22:17)
[2020-05-25 22:35] LABS: Magnesium 2.2 mg/dl (1.8-2.4)
--- NOTE | 2020-05-26 00:13 | History & Physical Report ---
Date of Service May 26, 2020 Assessment & Plan (1) Bacteremia: hx ESRD on HD Possible sources : Persistent LUE swelling, hx LUE AV fistula revision procedure (04/2020) ? Infected hematoma CRBSI, hx permacath placement (02/2020) chronic systolic heart failure secondary to ischemic cardiomyopathy, (EF of 45% TTE 2017), some congestion on CXR from 2 days ago CAD status post CABG HTN, stable DM2, intermittent insulin at home, well-controlled as of recent hemoglobin A1c of 5.19 October 2019 chronic anemia, hemoglobin at baseline chronic thrombocytopenia Medical telemetry Daptomycin, cefepime for now until results of initial 05/24 blood cultures finalized Repeat blood cultures in a.m. [facility] consult Vascular surgery consult RE follow-up eval, persistent LUE swelling/hematoma [ER providers had contacted [facility] vascular surgeons armor reconnaissance vehicle crewman (Drs. Colindres and Lesli) who both did not feel emergent patient [facility] transfer to be necessary given current unavailability of patient's vascular surgeon at [facility]. Dr. Colindres recommended inpatient follow-up evaluation by IAM Mcnulty.) Hold patient aspirin for now given LUE hematoma, resume if hemoglobin stable Nephrology consult Re: Dialysis management Basal insulin, ISS BG goal 140-180, update hemoglobin A1c DVT prophylaxis. SCDs RE thrombocytopenia, LUE hematoma Full code Text document was generated using [employer] voice recognition software. It may contain grammatical or spelling errors. Kindly contact undersigned for clarification of any documentation item in question. History of Present Illness Chief Complaint: Abnormal blood work Primary Care Provider: Dalton Marcelino MD History obtained from patient and records. Medical history is significant for chronic systolic heart failure secondary to ischemic cardiomyopathy, (EF of 45% TTE 2017), CAD status post CABG, HTN, DM2, intermittent insulin at home, ESRD on HD, chronic hyponatremia, chronic anemia (baseline hemoglobin 9), chronic thrombocytopenia Recent confinement last February 2020 hyperkalemia secondary to dialysis LUE AV fistula malfunction. Left permacath placed by vascular surgery during confinement to facilitate dialysis. Last April 18, patient underwent AV fistula revision, LUE by vascular surgery outpatient. Fistula subsequently utilized for outpatient MWF hemodialysis 2 weeks later. Persistent LUE fistula site swelling since operation as per patient. LUE fistula site pain noted 4 days ago during dialysis. Patient permacath utilized by dialysis nurses for sessions due to fistula issues. Patient seen at the ER 2 days ago for LUE pain/swelling with fever, chills and dry cough symptoms. No chest pain, no S OB. No abdominal pain, no diarrhea. Chest x-ray showed pulmonary vascular congestion. Ultrasound of hemodialysis access showed patent AV fistula with high-grade stenosis of the venous outflow secondary to a large apparent hematoma extending from mid upper arm to antecubital fossa. Patient given vancomycin for possible sepsis. Admission recommended by ER provider but patient declined. Patient discharged on Levaquin and doxycycline course. 2 bottles of blood cultures drawn during ER visit later found to have gram- positive cocci in clusters on Gram stain. Patient requested by hospital to go to the ER. MEDICAL HISTORY: As above. SURGICAL HISTORY: He has had vascular procedures, CABG, eye surgery. FAMILY HISTORY: heart disease, kidney disease PERSONAL/SOCIAL HISTORY: Nonsmoker. No chronic intake of alcoholic beverages. Disabled. Allergies Allergy/AdvReac Type Severity Reaction Status Date / Time Penicillins Allergy Severe ANAPHYLAXIS Verified 05/24/20 22:08 Home Medications Home Medications Medication Instructions Recorded Confirmed Type levothyroxine 25 mcg PO QAM #0 11/02/15 05/25/20 History acetaminophen 500 mg PO Q4H PRN #0 04/23/16 05/25/20 History diphenhydramine HCl [Benadryl] 25 mg PO DAILY PRN #0 04/23/16 05/25/20 History sevelamer carbonate [Renvela] 4,000 mg PO WM #0 08/23/16 05/25/20 History furosemide [Lasix] 160 mg PO QAM #0 tab 02/03/17 05/25/20 History isosorbide mononitrate 30 mg PO QAM #0 tab 11/09/17 05/25/20 History furosemide 80 mg PO QPM #0 tab 03/30/18 05/25/20 History insulin aspart U-100 1 sliding scale dose SUBCUT AC #0 04/25/18 05/25/20 History sevelamer carbonate [Renvela] 2,400 mg PO DIRECTED #0 tab 04/25/18 05/25/20 History tamsulosin 0.4 mg PO QAM #0 04/25/18 05/25/20 History pantoprazole [Protonix] 40 mg PO QAM 06/16/18 05/25/20 History [place] Caps 1 cap PO QAM 02/21/20 05/25/20 History carvedilol 25 mg PO BID 02/21/20 05/25/20 History lisinopril 40 mg PO QAM 02/21/20 05/25/20 History [place] 8.4 g PO HS 04/12/20 05/25/20 History oxycodone-acetaminophen [Percocet] 1 tab PO Q6H PRN #20 tab 04/18/20 05/25/20 Rx cefepime 2 g NOT APPLICABLE UD #10 ea 05/26/20 Rx daptomycin [Cubicin] 500 mg NOT APPLICABLE UD #10 ea 05/26/20 Rx Past Med/Surg History Medical History Anemia due to end stage renal disease CAD (coronary artery disease) s/p CABG in 2013 Chronic kidney disease STAGE 5-- 3xwk, m,w,f at [facility] Follows with dr. jyothi Ramirez located to right upper chest Congestive heart failure Combined systolic and diastolic, compensated. Echo 2018 showed EF 40-45%. Prior to CABG EF was 30-34%. Diabetes mellitus, type 2 INSULIN DEPENDENT Diabetic neuropathy Diabetic retinopathy BOTH EYES OPERATED ON Hyperlipidemia Hypertension Hypothyroidism Ischemic cardiomyopathy Myocardial Infarction NSTEMI 02/2014--FOLLOWS W DR. CAMACHO Osteoarthritis Peripheral neuropathy Thrombocytopenia Chronic. Surgical History Fistula PLACED IN L WRIST--DOES NOT WORK and in process of placing new one H/O eye surgery RT/LT History of cardiac cath 02/2014--NO STENTS History of coronary artery bypass graft QUADRIPLE BYPASS @ [facility] 02/2014. History of vascular access device permacath insertion in right side of chest Hx of hernia repair abdominal hernia and removed PD catheter due to infection 06/2018 Family History Mother Family history of reaction to anesthesia VERY GROGGY AFTER 10 HOUR SURGERY Family history of diabetes mellitus Grandfather Family history of diabetes mellitus MATERNAL Family/Other Family history of diabetes mellitus MATERNAL AUNT Family hx of colon cancer Brother Family history of diabetes mellitus Social History Smoking Status: Never smoker Second Hand Exposure: No; Do You Dip or Chew Tobacco: Yes; Tobacco Cessation Education Requested by Patient: No Hx Alcohol Use: No Hx Substance Use: No Preferred Language: Welsh Communication Ability: Effective Visual Impairment: No Limitations 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 Required: No Beliefs That Will Affect Care: None Current Living Situation: Family Current Living Situation Comment: Lives w/ brother in [facility], [place] [address] Other Information That Helps Us Care for You: No Feels Safe at Home: Yes Safety Concerns: Feels Safe At This Time Review of Systems Review of Systems: As per HPI, all 10 systems reviewed, all other ROS negative Physical Exam Physical Exam: GENERAL: Comfortable, pleasant, obese, no respiratory distress SKIN: Sallow, warm HEENT: pale palpebral conjunctivae, no ptosis, dry buccal mucosa NECK : Supple, short neck, no tenderness CHEST : CTA, no tenderness HEART : RRR, no obvious murmurs ABDOMEN: Some distention, nontender EXTREMITIES : LUE induration with minimal tenderness , no other conspicuous deformities noted NEUROLOGIC : Coherent, no facial asymmetry, no other gross focality Results & Data Results & Data ([facility]) Vital Signs (Past 12 Hours) Vital Signs Temp Pulse Pulse Resp BP BP Pulse Ox 05/25/20 22:04 72 18 130/68 98 05/25/20 20:38 37.7 C H 76 18 134/62 99 Laboratory Results Laboratory Results WBC 7.70 K/uL (4.8-10.8) 05/25/20 21:35 RBC 2.94 M/uL (4.7-6.1) L 05/25/20 21:35 Hgb 9.9 g/dL (14.0-18.0) L 05/25/20 21:35 POC Hgb 9.5 g/dl (14.0-18.0) L 05/25/20 21:41 Hct 28.3 % (42-52) L 05/25/20 21:35 POC Hct 28 % (42-52) L 05/25/20 21:41 MCV 96.3 fL (80-100) 05/25/20 21:35 MCH 33.7 pg (25-34) 05/25/20 21:35 MCHC 35.0 g/dL (32-36) 05/25/20 21:35 RDW Std Deviation 49.4 fL (36.4-46.3) H 05/25/20 21:35 RDW Coeff of Ira 14.1 % (11.5-14.5) 05/25/20 21:35 Plt Count 113 K/uL (130-400) L 05/25/20 21:35 MPV 9.7 fL (7.4-10.4) 05/25/20 21:35 Immature Gran % (Auto) 0.1 % 05/25/20 21:35 Neut % (Auto) 74.1 % 05/25/20 21:35 Lymph % (Auto) 17.0 % 05/25/20 21:35 Gray % (Auto) 7.0 % 05/25/20 21:35 Eos % (Auto) 1.7 % 05/25/20 21: Baso % (Auto) 0.1 % 05/25/20 21:35 Neut # (Auto) 5.70 K/uL (1.4-6.5) 05/25/20 21:35 Lymph # (Auto) 1.31 K/uL (1.2-3.4) 05/25/20 21:35 Gray # (Auto) 0.54 K/uL (0.11-0.59) 05/25/20 21:35 Eos # (Auto) 0.13 K/uL (0-0.5) 05/25/20 21:35 Baso # (Auto) 0.01 K/uL (0-0.2) 05/25/20 21:35 Immature Gran # (Auto) 0.01 K/uL (0.00-0.02) 05/25/20 21:35 POC Sodium 135 mmol/L (135-144) 05/25/20 21:41 Sodium 134 mmol/L (136-145) L 05/25/20 21:35 POC Potassium 3.3 mmol/L (3.3-5.0) 05/25/20 21:41 Potassium 3.3 mmol/L (3.5-5.1) L 05/25/20 21:35 POC Chloride 93 mmol/L (101-112) L 05/25/20 21:41 Chloride 96 mmol/L (98-107) L 05/25/20 21:35 Carbon Dioxide 28 mmol/L (21-32) 05/25/20 21:35 POC Total CO2 26 mmol/L (24-31) 05/25/20 21:41 Anion Gap 10.0 (3-11) 05/25/20 21:35 POC Anion Gap 20.0 mmol/L (16-25) 05/25/20 21:41 POC BUN 32 mg/dl (7-18) H 05/25/20 21:41 BUN 34 mg/dl (7-18) H D 05/25/20 21:35 Creatinine 9.56 mg/dl (0.6-1.4) H* D 05/25/20 21:35 POC Creatinine 9.9 mg/dl (0.6-1.3) H* 05/25/20 21:41 Est Cr Clr Drug Dosing 11.0 ml/min 05/25/20 21:35 Est GFR ( Amer) 6.7 05/25/20 21:35 Est GFR (Non-Af Amer) 5.8 05/25/20 21:35 BUN/Creatinine Ratio 3.6 (10-20) L 05/25/20 21:35 Glucose 177 mg/dl (70-99) H 05/25/20 21:35 POC Glucose (other) 176 mg/dl (70-99) H 05/25/20 21:41 Lactate 1.2 mmol/L (0.4-2.0) 05/25/20 21:35 Calcium 9.3 mg/dl (8.5-10.1) 05/25/20 21:35 POC Ioniz Calcium Elizabeth 1.15 mmol/l (1.12-1.32) 05/25/20 21:41 Magnesium 2.2 mg/dl (1.8-2.4) 05/25/20 21:35 Magnesium Cancelled 05/25/20 21:35 Specimen Hemolysis 05/25/20 21:35 COVID-19 Eval Order Covid19 Done at [facility] 05/25/20 22:35 COVID-19 PCR NEGATIVE (Negative) 05/25/20 22:35
[2020-05-26] MEDS ORDERED: GLUCOSE 40% GEL 15 GM TUBE PO PRN (02:45)
[2020-05-26] MEDS ORDERED: DEXTROSE 50% 50 ML SYRINGE IV PRN (02:45)
[2020-05-26] MEDS ORDERED: CARBOHYDRATES FOR HYPOGLYCEMIA PO PRN (02:45)
[2020-05-26] MEDS ORDERED: GLUCAGON FOR INJ 1 MG VIAL SQ PRN (02:45)
[2020-05-26] MEDS ORDERED: SEVELAMER HCL 800 MG TABLET PO PRN (02:45)
[2020-05-26] MEDS ORDERED: OXYCODONE/ACETAMINOPHEN 5mg/325mg TAB PO PRN (02:45)
[2020-05-26] MEDS ORDERED: GLUCOSE 10 TABS/TUBE PO PRN (02:45)
[2020-05-26] MEDS: INSULIN ASPART 100 UNITS/ML 3 ML PEN SC SCH ×5 (03:17→21:38)
[2020-05-26] MEDS: guaiFENesin 600 MG TABCR PO SCH ×3 (03:19→19:56)
[2020-05-26] MEDS ORDERED: CEFEPIME 1,000 MG in SYRINGE 0 ML IV STA (04:42)
[2020-05-26] MEDS ORDERED: CEFEPIME CONSULT ACTIVE PRN (04:45)
[2020-05-26] MEDS ORDERED: DAPTOMYCIN CONSULT ACTIVE PRN (04:45)
[2020-05-26] MEDS ORDERED: DAPTOmycin 325 MG in SYRINGE 0 ML IV STA (04:47)
[2020-05-26 06:03] LABS: Hematocrit (blood only) 25.4 % (42-52); Mean Corpuscular Hemoglobin 34.1 pg (25-34); Mean Corpuscular Hgb Conc 35.4 g/dL (32-36); Mean Corpuscular Volume 96.2 fL (80-100); RDW Coefficient of Variation 14.3 % (11.5-14.5); RDW Standard Deviation 49.1 fL (36.4-46.3); Red Blood Count 2.64 M/uL (4.7-6.1); White Blood Count 6.12 K/uL (4.8-10.8)
[2020-05-26 06:32] LABS: Estimated Average Glucose 97 mg/dl
[2020-05-26 06:44] LABS: Mean Platelet Volume 9.8 fL (7.4-10.4); Platelet Count 98 K/uL (130-400)
[2020-05-26 06:45] LABS: Anisocytosis Present; Eosinophils # (auto) 0.15 K/uL (0-0.5); Eosinophils % (auto) 2.5 %; Immature Granulocytes # (auto) 0.02 K/uL (0.00-0.02); Immature Granulocytes % (auto) 0.3 %; Lymphocytes # (auto) 1.01 K/uL (1.2-3.4); Lymphocytes % (auto) 16.5 %; Monocytes % (auto) 8.2 %; Neutrophils # (auto) 4.44 K/uL (1.4-6.5); Neutrophils % (auto) 72.5 %; Polychromasia 1+
[2020-05-26 07:09] LABS: BUN Creatinine Ratio 3.6 (10-20); Calcium 8.4 mg/dl (8.5-10.1); Creatinine Clr Calc Pharmacy 10.2 ml/min; Est GFR (African American) 6.4; Est GFR (Non-African American) 5.5
[2020-05-26] MEDS: LEVOTHYROXINE SODIUM 25 MCG TABLET PO SCH (07:33)
[2020-05-26] MEDS ORDERED: PERFLUTREN LIPID MICROSPHERE (DEFINITY) IV ONE (09:22)
[2020-05-26] MEDS: PANTOprazole 40 MG TAB PO SCH (09:59)
[2020-05-26] MEDS: TAMSULOSIN HCL 0.4 MG CAP PO SCH (09:59)
[2020-05-26] MEDS: INSULIN GLARGINE SOLOSTAR 100 UNITS/ML 3 ML PEN SC SCH (10:03)
[2020-05-26] MEDS: SEVELAMER HCL 800 MG TABLET PO SCH ×3 (10:09→16:59)
--- NOTE | 2020-05-26 11:28 | Communication Note ---
Date of Service: May 26, 2020 Patient chart reviewed; discussed with dialysis nurse at [facility] and with Dr Max. Pt is status post AVF revision on 04/18 with gortex graft insertion during this process. he still has tunnelled dialysis catheter in place. OP dialysis has been cannulating AVF/G with 17 gauge needles and then moved to 16 gauge needles. Noted to have redness, swelling, and warmth on 05/24 over AVG near the antecubital space >> sent to [facility] ER for eval where he was noted to have temp 37.9, high grade stenosis from venous outflow obstruction by hematoma in upper extremity, vascular congestion but no PNA on CXR. Blood cultures were drawn; admission recommended but pt refused, left AMA on doxy and levaquin po. Called to return to ER after 01/14 blood cultures were + for CoNS. Admitted last evening: admitting physician noted concerns that we have no vascular surgery services currently due to staff emergency, so no catheter exchanges, no removal of graft will be possible here. Discussed per his documentation with [facility] vascular surgery who did not feel transfer was indicated. I will evaluate the pt in person later today. he is hemodynamically stable on chart review; he is not from my review in need of urgent dialysis; he is on daptomycin and cefepime with repeat culture pending. However, I recommend moving forward with arranging transfer to [facility] b/c he may need a range of IR and vascular services including TDC removal, line holiday, and then TDC reinsertion after bacteremia clears, +/- excision of graft potentially; he certainly needs evaluation by vascular and inf dzs as to whether graft must be removed; he may also need dialysis on off hours (such as Friday-) which we do not routinely provide here. DX: AV Graft infection with coag negative Staph bacteremia Recommendation: [facility] transfer when feasible; query if vancomycin better antibiotic for now; full consultation to follow Discussed with Dr Max who is moving forward with plan.
[2020-05-26] MEDS: ISOSORBIDE MONO EXTENDED REL 30 MG TABCR PO SCH (12:12)
[2020-05-26] MEDS: carvediloL 25 MG TAB PO SCH ×2 (12:12→19:56)
[2020-05-26] MEDS: lisinopriL 40 MG TAB PO SCH (12:16)
[2020-05-26] MEDS: FUROSEMIDE 80 MG TAB PO SCH (12:44)
--- NOTE | 2020-05-26 13:41 | Hospitalist Progress Note ---
Date of Service May 26, 2020 Assessment & Plan (1) Bacteremia: 49 year old male with history of ESRD, CAD s/p CABG, CHF, DM 2 presenting with bacteremia. BACTEREMIA ESRD on HD Possible sources : Persistent LUE swelling, hx LUE AV fistula revision procedure (04/2020) ? Infected hematoma CRBSI, hx permacath placement (02/2020) blood cultures 05/24/20: Coag Neg Staph x 2 bottles, Gram positive cocci in cluster x 2 bottles Repeat blood cultures 05/25/2020: Pending, please follow-up Daptomycin + Cefepime IV ordered afebrile, BP stable, no leukocytosis Discussed with nephrology service Dr. Elkins, recommending transfer to [facility] in [place] for vascular surgery evaluation of infected AV fistula, movement and replacement of permacath As a vascular surgeon in [facility] is not available today and for At least 2 weeks Discussed with hospitalist at [facility] Dr. Barber, and he kindly accepted the patient for transfer Discussed with patient regarding case and plan of care in detail and at length, all questions were answered, he is agreeable, understanding, comfortable with the plan of care Chronic systolic heart failure secondary to ischemic cardiomyopathy, (EF of 45% TTE 2017) Euvolemic On Lasix CAD status post CABG No cardiac symptoms Holding aspirin now for possible AV fistula site hematoma HTN, stable DM2, intermittent insulin at home, well-controlled as of recent hemoglobin A1c of 5.19 October 2019 chronic anemia, hemoglobin at baseline chronic thrombocytopenia DVT prophylaxis. SCDs RE thrombocytopenia, LUE hematoma Full code Transfer to [facility] in [place] when bed available Admission and Anticipated Discharge Date Admission Date: May 26, 2020 Subjective ff up for bacteremia, ESRD seen resting in bed, sleeping but easily awakened states he feels fine overall has some AV fistula site discomfort but denies chills, headache, dizziness, chest pain, shortness of breath, abdominal pain no chest pain, palpitations, dizziness no other symptoms Review of Systems Review of Systems: All systems reviewed & are unremarkable except as noted in HPI & below Physical Exam Physical Exam: General- oriented x 3, not in distress, speaks in sentences with no effort or accessory muscle use Head- atraumatic Eyes- PERRL, EOMI, anicteric ENT- oropharynx clear Neck- supple, no JVD, no adenopathy, no thyromegaly; carotids +2/2, no bruits appreciated Lungs- clear to auscultation bilaterally, no rales/wheezes Permcath- no signs of infection- no edema/erythema/tenderness/warmth Heart- normal rate, regular rhythm; no murmur, no gallop, no rub appreciated Abdomen- normal bowel sounds, nondistended, soft, nontender, no masses or hepatosplenomegaly Extremities- no pretibial edema, no calf tenderness; peripheral pulses intact Left arm: AV fistula site- (+) mild edema, and tenderness, no erythema, no warmth Neuro- alert, oriented x 3; CN 2-12 grossly intact; motor 5/5 bilaterally;sensation 100% on all extremities; no other gross focal neurologic deficits Skin- warm & dry Results & Data Results & Data ([facility]) Vital Signs (Past 12 Hours) Vital Signs Temp Pulse Pulse Resp BP BP Pulse Ox 05/26/20 11:57 36.6 C 66 16 134/72 96 05/26/20 07:49 36.5 C 67 16 119/65 96 05/26/20 03:45 36.6 C 66 18 152/81 H 05/26/20 02:48 67 05/26/20 02:45 36.6 C 66 16 152/81 H 99 05/26/20 02:09 65 18 114/69 97 Pulse Ox 05/26/20 11:57 05/26/20 07:49 05/26/20 03:45 05/26/20 02:48 05/26/20 02:45 99 05/26/20 02:09 Laboratory Results Laboratory Results - last 24 hr 05/25/20 05/25/20 05/25/20 21:35 21:35 21:35 WBC 7.70 RBC 2.94 L Hgb 9.9 L POC Hgb Hct 28.3 L POC Hct MCV 96.3 MCH 33.7 MCHC 35.0 RDW Std Deviation 49.4 H RDW Coeff of Ira 14.1 Plt Count 113 L MPV 9.7 Immature Gran % (Auto) 0.1 Neut % (Auto) 74.1 Lymph % (Auto) 17.0 Iron % (Auto) 7.0 Eos % (Auto) 1.7 Baso % (Auto) 0.1 Neut # (Auto) 5.70 Lymph # (Auto) 1.31 Iron # (Auto) 0.54 Eos # (Auto) 0.13 Baso # (Auto) 0.01 Immature Gran # (Auto) 0.01 Polychromasia Anisocytosis POC Sodium Sodium 134 L POC Potassium Potassium 3.3 L POC Chloride Chloride 96 L Carbon Dioxide 28 POC Total CO2 Anion Gap 10.0 POC Anion Gap POC BUN BUN 34 H D Creatinine 9.56 H* D POC Creatinine Est Cr Clr Drug Dosing 11.0 Est GFR ( Amer) 6.7 Est GFR (Non-Af Amer) 5.8 BUN/Creatinine Ratio 3.6 L Glucose 177 H POC Glucose POC Glucose (other) Estimat Average Glucose Hemoglobin A1c Lactate 1.2 Calcium 9.3 POC Ioniz Calcium Elizabeth Magnesium 2.2 Specimen Hemolysis Nasal Screen MRSA (PCR) COVID-19 Eval Order COVID-19 PCR Blood Type Antibody Screen 05/25/20 05/25/20 05/25/20 21:35 21:41 22:35 WBC RBC Hgb POC Hgb 9.5 L Hct POC Hct 28 L MCV MCH MCHC RDW Std Deviation RDW Coeff of Ira Plt Count MPV Immature Gran % (Auto) Neut % (Auto) Lymph % (Auto) Iron % (Auto) Eos % (Auto) Baso % (Auto) Neut # (Auto) Lymph # (Auto) Iron # (Auto) Eos # (Auto) Baso # (Auto) Immature Gran # (Auto) Polychromasia Anisocytosis POC Sodium 135 Sodium POC Potassium 3.3 Potassium POC Chloride 93 L Chloride Carbon Dioxide POC Total CO2 26 Anion Gap POC Anion Gap 20.0 POC BUN 32 H BUN Creatinine POC Creatinine 9.9 H* Est Cr Clr Drug Dosing Est GFR ( Amer) Est GFR (Non-Af Amer) BUN/Creatinine Ratio Glucose POC Glucose POC Glucose (other) 176 H Estimat Average Glucose Hemoglobin A1c Lactate Calcium POC Ioniz Calcium Elizabeth 1.15 Magnesium Cancelled Specimen Hemolysis Nasal Screen MRSA (PCR) COVID-19 Eval Order Covid19 Done at [facility] COVID-19 PCR Blood Type Antibody Screen 05/25/20 05/26/20 05/26/20 22:35 03:01 05:10 WBC RBC Hgb POC Hgb Hct POC Hct MCV MCH MCHC RDW Std Deviation RDW Coeff of Ira Plt Count MPV Immature Gran % (Auto) Neut % (Auto) Lymph % (Auto) Iron % (Auto) Eos % (Auto) Baso % (Auto) Neut # (Auto) Lymph # (Auto) Iron # (Auto) Eos # (Auto) Baso # (Auto) Immature Gran # (Auto) Polychromasia Anisocytosis POC Sodium Sodium POC Potassium Potassium POC Chloride Chloride Carbon Dioxide POC Total CO2 Anion Gap POC Anion Gap POC BUN BUN Creatinine POC Creatinine Est Cr Clr Drug Dosing Est GFR ( Amer) Est GFR (Non-Af Amer) BUN/Creatinine Ratio Glucose POC Glucose 106 H POC Glucose (other) Estimat Average Glucose Hemoglobin A1c Lactate Calcium POC Ioniz Calcium Elizabeth Magnesium Specimen Hemolysis Nasal Screen MRSA (PCR) Negative COVID-19 Eval Order COVID- PCR NEGATIVE Blood Type Antibody Screen 05/26/20 05/26/20 05/26/20 05:16 05:16 05:16 WBC 6.12 RBC 2.64 L Hgb 9.0 L POC Hgb Hct 25.4 L POC Hct MCV 96.2 MCH 34.1 H MCHC 35.4 RDW Std Deviation 49.1 H RDW Coeff of Ira 14.3 Plt Count 98 L MPV 9.8 Immature Gran % (Auto) 0.3 Neut % (Auto) 72.5 Lymph % (Auto) 16.5 Iron % (Auto) 8.2 Eos % (Auto) 2.5 Baso % (Auto) 0.0 Neut # (Auto) 4.44 Lymph # (Auto) 1.01 L Iron # (Auto) 0.50 Eos # (Auto) 0.15 Baso # (Auto) 0.00 Immature Gran # (Auto) 0.02 Polychromasia 1+ Anisocytosis Present POC Sodium Sodium POC Potassium Potassium POC Chloride Chloride Carbon Dioxide POC Total CO2 Anion Gap POC Anion Gap POC BUN BUN Creatinine POC Creatinine Est Cr Clr Drug Dosing Est GFR ( Amer) Est GFR (Non-Af Amer) BUN/Creatinine Ratio Glucose POC Glucose POC Glucose (other) Estimat Average Glucose 97 Hemoglobin A1c 5.0 Lactate Calcium POC Ioniz Calcium Elizabeth Magnesium Specimen Hemolysis Nasal Screen MRSA (PCR) COVID-19 Eval Order COVID-19 PCR Blood Type O Negative Antibody Screen NEGATIVE 05/26/20 05/26/20 05/26/20 05:16 07:34 11:52 WBC RBC Hgb POC Hgb Hct POC Hct MCV MCH MCHC RDW Std Deviation RDW Coeff of Ira Plt Count MPV Immature Gran % (Auto) Neut % (Auto) Lymph % (Auto) Iron % (Auto) Eos % (Auto) Baso % (Auto) Neut # (Auto) Lymph # (Auto) Iron # (Auto) Eos # (Auto) Baso # (Auto) Immature Gran # (Auto) Polychromasia Anisocytosis POC Sodium Sodium 136 POC Potassium Potassium 3.0 L POC Chloride Chloride 99 Carbon Dioxide 29 POC Total CO2 Anion Gap 8.0 POC Anion Gap POC BUN BUN 36 H Creatinine 9.98 H* D POC Creatinine Est Cr Clr Drug Dosing 10.2 Est GFR ( Amer) 6.4 Est GFR (Non-Af Amer) 5.5 BUN/Creatinine Ratio 3.6 L Glucose 92 POC Glucose 110 H 184 H POC Glucose (other) Estimat Average Glucose Hemoglobin A1c Lactate Calcium 8.4 L POC Ioniz Calcium Elizabeth Magnesium Specimen Hemolysis Nasal Screen MRSA (PCR) COVID-19 Eval Order COVID-19 PCR Blood Type Antibody Screen
--- NOTE | 2020-05-26 14:11 | Discharge Summary ---
Date of Service May 26, 2020 Admission HPI Per Admitting Provider History obtained from patient and records. Medical history is significant for chronic systolic heart failure secondary to ischemic cardiomyopathy, (EF of 45% TTE 2018), CAD status post CABG, HTN, DM2, intermittent insulin at home, ESRD on HD, chronic hyponatremia, chronic anemia (baseline hemoglobin 9), chronic thrombocytopenia Recent confinement last February 2020 hyperkalemia secondary to dialysis LUE AV fistu la malfunction. Left permacath placed by vascular surgery during confinement to facilitate dialysis. Last April 18, patient underwent AV fistula revision, LUE by vascular surgery outpatient. Fistula subsequently utilized for outpatient MWF hemodialysis 2 weeks later. Persistent LUE fistula site swelling since operation as per patient. LUE fistula site pain noted 4 days ago during dialysis. Patient permacath utilized by dialysis nurses for sessions due to fistula issues. Patient seen at the ER 2 days ago for LUE pain/swelling with fever, chills and dry cough symptoms. No chest pain, no S OB. No abdominal pain, no diarrhea. Chest x-ray showed pulmonary vascular congestion. Ultrasound of hemodialysis access showed patent AV fistula with high-grade stenosis of the venous outflow secondary to a large apparent hematoma extending from mid upper arm to antecubital fossa. Patient given vancomycin for possible sepsis. Admission recommended by ER provider but patient declined. Patient discharged on Levaquin and doxycycline course. 2 bottles of blood cultures drawn during ER visit later found to have gram- positive cocci in clusters on Gram stain. Patient requested by hospital to go to the ER. MEDICAL HISTORY: As above. SURGICAL HISTORY: He has had vascular procedures, CABG, eye surgery. FAMILY HISTORY: There is a family history of heart disease, kidney disease PERSONAL/SOCIAL HISTORY: Nonsmoker. No chronic intake of alcoholic beverages. Disabled. Admission Exam Per Admitting Provider GENERAL: He is oriented to person, place, and time. He appears well-developed and well-nourished. He does not appear distressed. HENT: Exam performed. - Head: Normocephalic and atraumatic. - Right Ear: External ear normal. No mastoid tenderness. - Left Ear: External ear normal. No mastoid tenderness. - Mouth/Throat: The oropharynx is clear and moist. No trismus in the jaw. No dental abscesses or uvula swelling. No oropharyngeal exudate or tonsillar abscesses. EYES: Conjunctivae and EOM are normal. Pupils are equal, round, and reactive to light. Right eye exhibits no discharge. Left eye exhibits no discharge. No scleral icterus. NECK: Normal range of motion. Neck supple. No JVD present. No spinous process tenderness present. No carotid bruit present. No rigidity. No tracheal deviation and normal range of motion present. No Brudzinski's sign and no Kernig's sign noted. CV: Normal rate, regular rhythm, normal heart sounds and intact distal pulses. There is no peripheral edema. Palpable radial pulses bue. PULM/CHEST: Effort normal and breath sounds normal. No respiratory distress. No stridor. He has no wheezes. He has no rales. - Chest Wall: Permacath right chest with no surrounding erythema. ABD: The abdomen is soft. Bowel sounds are normal. He has no distension. No mass is present. There is no tenderness. There is no rebound, no guarding, no Hunt's sign and no tenderness at McBurney's point. Rovsig negative. MUSC/SKEL: Normal range of motion. There is no peripheral edema, tenderness or deformity. LYMPH: No cervical adenopathy. NEURO: He is alert and oriented to person, place, and time. He has normal strength. No cranial nerve deficit or sensory deficit. Coordination and gait normal. GCS eye subscore is 4. GCS verbal subscore is 5. GCS motor subscore is 6. Cerebellar tests wnl. SKIN: Skin is warm and dry. He is not diaphoretic. Principal Diagnosis Bacteremia, ESRD Discharge Exam General- oriented x 3, not in distress, speaks in sentences with no effort or accessory muscle use Head- atraumatic Eyes- PERRL, EOMI, anicteric ENT- oropharynx clear Neck- supple, no JVD, no adenopathy, no thyromegaly; carotids +2/2, no bruits appreciated Lungs- clear to auscultation bilaterally, no rales/wheezes Permcath- no signs of infection- no edema/erythema/tenderness/warmth Heart- normal rate, regular rhythm; no murmur, no gallop, no rub appreciated Abdomen- normal bowel sounds, nondistended, soft, nontender, no masses or hepatosplenomegaly Extremities- no pretibial edema, no calf tenderness; peripheral pulses intact Left arm: AV fistula site- (+) mild edema, and tenderness, no erythema, no warmth Neuro- alert, oriented x 3; CN 2-12 grossly intact; motor 5/5 bilaterally;sensation 100% on all extremities; no other gross focal neurologic deficits Skin- warm & dry Discharge Data Allergies Allergy/AdvReac Type Severity Reaction Status Date / Time Penicillins Allergy Severe ANAPHYLAXIS Verified 05/24/20 22:08 Consultations 05/25/20 20:46 ED Decision to Admit Stat 05/26/20 02:45 Consult Nephrology Routine Consult Vascular Surgery Routine Hospital Course (1) Bacteremia: 49 year old male with history of ESRD, CAD s/p CABG, CHF, DM 2 presenting with bacteremia. BACTEREMIA ESRD on HD Possible sources : Persistent LUE swelling, hx LUE AV fistula revision procedure (04/2020) ? Infected hematoma CRBSI, hx permacath placement (02/2020) blood cultures 05/24/20: Coag Neg Staph x 2 bottles, Gram positive cocci in cluster x 2 bottles Repeat blood cultures 05/25/2020: Pending, please follow-up Daptomycin + Cefepime IV ordered afebrile, BP stable, no leukocytosis Discussed with nephrology service Dr. Elkins, recommending transfer to [facility] in [place] for vascular surgery evaluation of infected AV fistula, movement and replacement of permacath As a vascular surgeon in [facility] is not available today and for At least 2 weeks Discussed with hospitalist at [facility] Dr. Barber, and he kindly accepted the patient for transfer Discussed with patient regarding case and plan of care in detail and at length, all questions were answered, he is agreeable, understanding, comfortable with the plan of care Chronic systolic heart failure secondary to ischemic cardiomyopathy, (EF of 45% TTE 2017) Euvolemic On Lasix CAD status post CABG No cardiac symptoms Holding aspirin now for possible AV fistula site hematoma Holding Atorvastatin while on Daptomycin HTN, stable DM2, intermittent insulin at home, well-controlled as of recent hemoglobin A1c of 5.19 October 2019 patient reports fluctuating blood glucose levels at home, declining Lantus monitor for hypoglycemia chronic anemia, hemoglobin at baseline chronic thrombocytopenia DVT prophylaxis. SCDs RE thrombocytopenia, LUE hematoma Full code Transfer to [facility] in [place] when bed available Total Time Total Time Spent Total Time Spent (In Minutes): 60 minutes Discharge Plan Discharge Items Patient Disposition: Transfer Acute Care Hospital Reason For Visit: SEPSIS, DC ISOL PREC, COVID NEG Discharge Diagnosis: Bacteremia, possible AV fistula site infection, ESRD Activity: Resume your previous activity Non-emergency contact: Primary Care Provider Call non-emergency contact if: you have any medication questions Follow-up/Referrals: Kacey Roberson MD, PhD [Physician] - Dalton Marcelino MD [Primary Care Provider] - Diet: Dialysis Renal Addtl Attending Provider Instructions: Please refer to accompanying hospital discharge summary for further details. Pending Studies at Discharge: Yes Studies:: Please refer to accompanying hospital discharge summary. Stand-Alone Forms: My [facility] [employer] Skilled Items Patient informed of condition?: Yes DNR: No Discharge Level of Care: Other Communicable Disease: No Discharge Prognosis: Stable Lines: Peripheral IV Urinary Catheter: No Medications and DC Order Prescriptions: New cefepime 2 gram Recon Soln 2 g Not Applicable UD Qty: 10 RF: 0 daptomycin [Cubicin] 500 mg Recon Soln 500 mg Not Applicable UD Qty: 10 RF: 0 Continued levothyroxine 25 mcg Tablet 25 mcg PO QAM Qty: 0 RF: 0 acetaminophen 500 mg Tablet 500 mg PO Q4H PRN (Reason: Pain) Qty: 0 RF: 0 diphenhydramine HCl [Benadryl] 25 mg Capsule 25 mg PO DAILY PRN (Reason: Allergic Reaction) Qty: 0 RF: 0 sevelamer carbonate [Renvela] 800 mg Tablet 4,000 mg PO WM Qty: 0 RF: 0 furosemide [Lasix] 80 mg Tablet 160 mg PO QAM Qty: 0 RF: 0 isosorbide mononitrate 30 mg Tablet Extended Release 24 Hr 30 mg PO QAM Qty: 0 RF: 0 furosemide 80 mg Tablet 80 mg PO QPM Qty: 0 RF: 0 tamsulosin 0.4 mg Capsule 0.4 mg PO QAM Qty: 0 RF: 0 insulin aspart U-100 100 unit/mL Solution 1 sliding scale dose SUBCUT AC Qty: 0 RF: 0 sevelamer carbonate [Renvela] 800 mg Tablet 2,400 mg PO DIRECTED Qty: 0 RF: 0 Veltassa 8.4 gram Powder In Packet 8.4 g PO HS RF: 0 oxycodone-acetaminophen [Percocet] 5-325 mg tablet 1 tab PO Q6H PRN (Reason: pain) Qty: 20 RF: 0 pantoprazole [Protonix] 40 mg Tablet,Delayed Release (Dr/Ec) 40 mg PO QAM RF: 0 lisinopril 40 mg Tablet 40 mg PO QAM RF: 0 carvedilol 25 mg tablet 25 mg PO BID RF: 0 [place] Caps 1 mg capsule 1 cap PO QAM RF: 0 Discontinued atorvastatin 80 mg Tablet 80 mg PO QAM Qty: 0 RF: 0 aspirin [Aspir-81] 81 mg Tablet,Delayed Release (Dr/Ec) 81 mg PO PM Qty: 0 RF: 0 doxycycline hyclate 100 mg tablet 100 mg PO BID 7 Days Qty: 14 RF: 0 levofloxacin [Levaquin] 500 mg tablet 250 mg PO Q48H 7 Days Qty: 2 RF: 0 Discharge Orders: Discharge Order (Routine); Ordered 05/26/20 Ordered By: Aldair Max Admission Data Admit Date/Time: 05/26/20 00:20 Attending Provider: Aldair Max Admit Provider: Manuel Yang Primary Care Provider: Dalton Marcelino Other Providers: Manuel Yang ; Kacey Roberson ; Jason Cartwright Elissa R. ; Leyda Sanchez Japheth E. ; Sherrell Costello
[2020-05-26] MEDS: ACETAMINOPHEN 325 MG TAB PO PRN ×2 (14:18→20:02)
[2020-05-26] MEDS ORDERED: CEFEPIME 500 MG in SYRINGE 0 ML IV SCH (20:00)
--- NOTE | 2020-05-26 20:38 | Nephrology Consultation ---
Date of Consultation May 26, 2020 Assessment & Plan (1) ESRD (end stage renal disease) on dialysis: No indication at this time for hemodialysis today given active bacteremia and no reliable dialysis access. His potassium and volume status and hemodynamics are acceptable at this time. I prefer not to use the dialysis catheter which is likely ionized with coag negative staph if possible will use if we have to. We will likely need to remove tunneled dialysis catheter give him a line holiday and then consider whether he needs another catheter afterward pending on what happens with the fistula/graft Chest x-ray in the morning Continue lisinopril and Veltassa and outpatient Lasix doses Present on Admission?: Yes (2) Bacteremia: CoNS; follow up cxs, minimize current dialysis catheter use Present on Admission?: Yes (3) Infection of AV graft for dialysis: Given redness and pain concern for AV graft infection with coag negative Staph bacteremia -recommend moving forward with arranging transfer to [facility] b/c he may need a range of IR and vascular services including TDC removal, line holiday, and then potential TDC reinsertion after bacteremia clears, +/- excision of graft potentially; he certainly needs evaluation by vascular and inf dzs as to whether graft must be removed -cont cefepime, dapto Present on Admission?: Yes (4) Central venous catheter in place: for dialysis; likely to have CoNS biofilm with bacteremia > try to avoid using until more abtx on board and repeat cxs from today have 48 hrs results Present on Admission?: Yes History of Present Illness Reason for Consultation: ESRD with bacteremia Requesting Physician: Dr Tejeda Attending Physician: Aldair Max MD History of Present Illness 49 y/o M whom I'm asked to see for ESRD care after he was called back to ER when blood cxs from ER visit 48 hrs ago turned positive >> 4/4 CoNS. PMH includes ESRD on in center HD, CAD s/p CABG, DM, HTN, HL, HFpEF. He dialyzes under my care MWF at [facility]. Pt is status post AVF revision on 04/[address] Serrano with gortex graft insertion during this process. he still has tunnelled dialysis catheter in place. OP dialysis has been cannulating AVF/G with 17 gauge needles and then moved to 16 gauge needles. Noted to have redness, swelling, and warmth on 05/24 over AVG near the antecubital space >> sent to [facility] ER for eval where he was noted to have temp 37.9, high grade stenosis from venous outflow obstruction by hematoma in upper extremity, vascular congestion but no PNA on CXR. Blood cultures were drawn; admission recommended but pt refused, left AMA on doxy and levaquin po. Called to return to ER after 01/14 blood cultures were + for CoNS. Admitted last evening: admitting physician noted concerns that we have no vascular surgery services currently due to staff emergency, so no catheter exchanges, no removal of graft will be possible here. Discussed per his documentation with [facility] vascular surgery who did not feel transfer was indicated. Pt endorses continued arm soreness (has been sore for 3 wks he states but worse past few days); longstanding induration near AC fossa since procedure, and new/worse warmth, redness over area. Allergies Allergy/AdvReac Type Severity Reaction Status Date / Time Penicillins Allergy Severe ANAPHYLAXIS Verified 05/24/20 22:08 Home Medications Home Medications Medication Instructions Recorded Confirmed Type levothyroxine 25 mcg PO QAM #0 11/02/15 05/25/20 History acetaminophen 500 mg PO Q4H PRN #0 04/23/16 05/25/20 History diphenhydramine HCl [Benadryl] 25 mg PO DAILY PRN #0 04/23/16 05/25/20 History sevelamer carbonate [Renvela] 4,000 mg PO WM #0 08/23/16 05/25/20 History furosemide [Lasix] 160 mg PO QAM #0 tab 02/03/17 05/25/20 History isosorbide mononitrate 30 mg PO QAM #0 tab 11/09/17 05/25/20 History furosemide 80 mg PO QPM #0 tab 03/30/18 05/25/20 History insulin aspart U-100 1 sliding scale dose SUBCUT AC #0 04/25/18 05/25/20 History sevelamer carbonate [Renvela] 2,400 mg PO DIRECTED #0 tab 04/25/18 05/25/20 History tamsulosin 0.4 mg PO QAM #0 04/25/18 05/25/20 History pantoprazole [Protonix] 40 mg PO QAM 06/16/18 05/25/20 History [place] Caps 1 cap PO QAM 02/21/20 05/25/20 History carvedilol 25 mg PO BID 02/21/20 05/25/20 History lisinopril 40 mg PO QAM 02/21/20 05/25/20 History Veltassa 8.4 g PO HS 04/12/20 05/25/20 History oxycodone-acetaminophen [Percocet] 1 tab PO Q6H PRN #20 tab 04/18/20 05/25/20 Rx cefepime 2 g NOT APPLICABLE UD #10 ea 05/26/20 Rx daptomycin [Cubicin] 500 mg NOT APPLICABLE UD #10 ea 05/26/20 Rx Patient History Medical History Anemia due to end stage renal disease CAD (coronary artery disease) s/p CABG in 2013 Chronic kidney disease STAGE 5-- 3xwk, m,w,f at [facility] Follows with dr. jyothi Ramirez located to right upper chest Congestive heart failure Combined systolic and diastolic, compensated. Echo 2017 showed EF 40-45%. Prior to CABG EF was 30-34%. Diabetes mellitus, type 2 INSULIN DEPENDENT Diabetic neuropathy Diabetic retinopathy BOTH EYES OPERATED ON Hyperlipidemia Hypertension Hypothyroidism Ischemic cardiomyopathy Myocardial Infarction NSTEMI 02/2014--FOLLOWS W DR. CAMACHO Osteoarthritis Peripheral neuropathy Thrombocytopenia Chronic. Surgical History Fistula PLACED IN L WRIST--DOES NOT WORK and in process of placing new one H/O eye surgery RT/LT History of cardiac cath 02/2014--NO STENTS History of coronary artery bypass graft QUADRIPLE BYPASS @ [facility] 02/2014. History of vascular access device permacath insertion in right side of chest Hx of hernia repair abdominal hernia and removed PD catheter due to infection 06/2018 Family History Mother Family history of reaction to anesthesia VERY GROGGY AFTER 10 HOUR SURGERY Family history of diabetes mellitus Grandfather Family history of diabetes mellitus MATERNAL Family/Other Family history of diabetes mellitus MATERNAL AUNT Family hx of colon cancer Brother Family history of diabetes mellitus Social History Smoking Status: Never smoker Second Hand Exposure: No; Do You Dip or Chew Tobacco: Yes; Tobacco Cessation Education Requested by Patient: No Hx Alcohol Use: No Hx Substance Use: No Preferred Language: Syrian Communication Ability: Effective Visual Impairment: No Limitations Hearing Aid Repairer Required: No Beliefs That Will Affect Care: None Current Living Situation: Family Current Living Situation Comment: [place]/ [place] [address] Other Information That Helps Us Care for You: No Feels Safe at Home: Yes Safety Concerns: Feels Safe At This Time Review of Systems Review of Systems: All systems reviewed & are unremarkable except as noted in HPI & below Constitutional: + fatigue; no fever and no body aches Respiratory: + cough (Nonproductive occasional) Genitourinary: + problem reported (No change to chronic voiding habits) Integumentary: + erythema, + skin swelling and + problem reported (Purple dot emerging near antecubital fossa) Physical Exam Constitutional: well developed and well nourished; no acute distress On room air occasional dry cough and exam which is unusual for him Eyes: EOM intact bilaterally ENMT: Ears: no external ear abnormality Nose: no external nose abnormality Mouth: + dry oral mucous membranes Neck: no nuchal rigidity Respiratory: normal respiratory effort Auscultation: lungs clear to auscultation bilaterally and + diminished lung sounds Cardiovascular: RRR, no murmur, no edema Extremities: + AV fistula (Left proximal with large overlying hematoma indurated, red and warmer than right arm, some tenderness to palpation and manipulation, pencil point size purple spot near antecubital fossa, no drainage) Gastrointestinal (Abdomen): Inspection/Auscultation: normal bowel sounds Percussion/Palpation: abdomen soft; abdomen nontender Musculoskeletal: Extremities: strength 5/5 throughout Skin: no rashes, warm and dry + induration and + erythema (See description above) Neurologic: sharp, fluent speech, no tremor Psychiatric: A+Ox3, euthymic affect Results & Data ([facility]) Vital Signs (Past 12 Hours) Vital Signs Temp Pulse Pulse Resp BP Pulse Ox 05/26/20 15:53 36.7 C 67 22 149/82 H 100 05/26/20 15:28 72 05/26/20 11:57 36.6 C 66 16 134/72 96 Laboratory Results 05/26/20 05:16 05/26/20 05:16 Diagnostic Findings Echocardiogram done today Moderate concentric LVH without wall motion abnormality. Ejection fraction 50 to 55%. No valvular vegetations. Grade 3 diastolic dysfunction consistent with markedly increased left atrial pressure. Left atrium is moderately dilated. Mild aortic valve sclerosis without significant valvular stenosis. May 24 dialysis access duplex IMPRESSION: Patent AV fistula with high-grade stenosis of the venous outflow secondary to a large apparent hematoma which extends from the mid upper arm to the antecubital fossa. Left upper extremity Dopplers venous No sonographic evidence of deep venous thrombosis. Chest x-ray May 24 1. Cardiomegaly with pulmonary vascular congestion. 2. No airspace consolidation to suggest pneumonia.
[2020-05-26] MEDS ORDERED: FUROSEMIDE 80 MG TAB PO SCH (21:00)
[2020-05-26] MEDS ORDERED: PATIROMER CALCIUM SORBITEX 8.4 GM PACK PO SCH (21:00)
[2020-05-26] MEDS ORDERED: LORATADINE 10 MG TAB PO ONE (21:50)
--- NOTE | 2020-05-26 22:39 | Electrocardiogram Report ---
Test Reason : Blood Pressure : / mmHG Vent. Rate : 071 BPM Atrial Rate : 071 BPM P-R Int : 172 ms QRS Dur : 102 ms QT Int : 440 ms P-R-T Axes : 019 -05 088 degrees QTc Int : 478 ms Normal sinus rhythm Nonspecific ST and T wave abnormality Prolonged QT Abnormal ECG When compared with ECG of 24-MAY-2020 18:24, Premature ventricular complexes are no longer Present Confirmed by Sandeep Mckeon ([id number]) on 05/26/2020 10:39:20 PM Referred By: REFERRED SELF Confirmed By:Sandeep Mckeon
[2020-05-27] MEDS: ACETAMINOPHEN 325 MG TAB PO PRN (04:17)
[2020-05-27] MEDS: LEVOTHYROXINE SODIUM 25 MCG TABLET PO SCH (04:19)
--- NOTE | 2020-05-27 07:33 | XRay Report ---
XR chest 1V portable HISTORY: 49 years-old Male Dialysis patient without dialysis access. Assess volume status. Also wi th bacteremia COMPARISON: Chest radiograph 05/24/2020 TECHNIQUE: Portable AP view of the chest FINDINGS: Cardiac silhouette is enlarged, unchanged. Mild pulmonary vascular congestion. Prior median sternotom y. Dual lumen right IJ hemodialysis catheter is in stable positioning. No pneumothorax, pleural effus ion, airspace consolidation or overt pulmonary edema. Bones of the chest appear grossly intact. IMPRESSION: Cardiomegaly with mild pulmonary vascular congestion. No overt pulmonary edema. ACT 112: Negative or not required by law. The above report was generated using voice recognition software. It may contain grammatical, syntax o r spelling errors. Electronically signed by: Florencio Coronado M.D. 05/27/2020 7:32 AM
[2020-05-27] MEDS: guaiFENesin 600 MG TABCR PO SCH (08:21)
[2020-05-27] MEDS: SEVELAMER HCL 800 MG TABLET PO SCH (08:21)
[2020-05-27] MEDS: FUROSEMIDE 80 MG TAB PO SCH (08:21)
[2020-05-27] MEDS: carvediloL 25 MG TAB PO SCH (08:21)
[2020-05-27] MEDS: INSULIN ASPART 100 UNITS/ML 3 ML PEN SC SCH (08:22)
[2020-05-27] MEDS: INSULIN GLARGINE SOLOSTAR 100 UNITS/ML 3 ML PEN SC SCH (08:22)
[2020-05-27] MEDS: TAMSULOSIN HCL 0.4 MG CAP PO SCH (08:22)
[2020-05-27] MEDS: lisinopriL 40 MG TAB PO SCH (08:22)
[2020-05-27] MEDS: PANTOprazole 40 MG TAB PO SCH (08:22)
[2020-05-27] MEDS: ISOSORBIDE MONO EXTENDED REL 30 MG TABCR PO SCH (08:22)
[2020-05-27] MEDS ORDERED: DAPTOmycin 325 MG in SYRINGE 0 ML IV SCH (20:00)
--- NOTE | 2020-05-29 09:26 | Consultation ---
Date of Consultation May 29, 2020 History of Present Illness Attending Physician: Aldair Max MD History of Present Illness Pt was discharged/transferred before being seen. Do NOT charge pt for this consultation. Allergies Allergy/AdvReac Type Severity Reaction Status Date / Time Penicillins Allergy Severe ANAPHYLAXIS Verified 05/24/20 22:08 Home Medications Home Medications Medication Instructions Recorded Confirmed Type levothyroxine 25 mcg PO QAM #0 11/02/15 05/25/20 History acetaminophen 500 mg PO Q4H PRN #0 04/23/16 05/25/20 History diphenhydramine HCl [Benadryl] 25 mg PO DAILY PRN #0 04/23/16 05/25/20 History sevelamer carbonate [Renvela] 4,000 mg PO WM #0 08/23/16 05/25/20 History furosemide [Lasix] 160 mg PO QAM #0 tab 02/03/17 05/25/20 History isosorbide mononitrate 30 mg PO QAM #0 tab 11/09/17 05/25/20 History furosemide 80 mg PO QPM #0 tab 03/30/18 05/25/20 History insulin aspart U-100 1 sliding scale dose SUBCUT AC #0 04/25/18 05/25/20 History sevelamer carbonate [Renvela] 2,400 mg PO DIRECTED #0 tab 04/25/18 05/25/20 History tamsulosin 0.4 mg PO QAM #0 04/25/18 05/25/20 History pantoprazole [Protonix] 40 mg PO QAM 06/16/18 05/25/20 History Flushing Caps 1 cap PO QAM 02/21/20 05/25/20 History carvedilol 25 mg PO BID 02/21/20 05/25/20 History lisinopril 40 mg PO QAM 02/21/20 05/25/20 History Veltassa 8.4 g PO HS 04/12/20 05/25/20 History oxycodone-acetaminophen [Percocet] 1 tab PO Q6H PRN #20 tab 04/18/20 05/25/20 Rx cefepime 2 g NOT APPLICABLE UD #10 ea 05/26/20 Rx daptomycin [Cubicin] 500 mg NOT APPLICABLE UD #10 ea 05/26/20 Rx Patient History Medical History Anemia due to end stage renal disease CAD (coronary artery disease) s/p CABG in 2013 Chronic kidney disease STAGE 5-- 3xwk, m,w,f at [facility] Follows with dr. roe Permacath located to right upper chest Congestive heart failure Combined systolic and diastolic, compensated. Echo 2018 showed EF 40-45%. Prior to CABG EF was 30-34%. Diabetes mellitus, type 2 INSULIN DEPENDENT Diabetic neuropathy Diabetic retinopathy BOTH EYES OPERATED ON Hyperlipidemia Hypertension Hypothyroidism Ischemic cardiomyopathy Myocardial Infarction NSTEMI 02/2014--FOLLOWS W DR. CAMACHO Osteoarthritis Peripheral neuropathy Thrombocytopenia Chronic. Surgical History Fistula PLACED IN L WRIST--DOES NOT WORK and in process of placing new one H/O eye surgery RT/LT History of cardiac cath 02/2014--NO STENTS History of coronary artery bypass graft QU[place]RIPLE [place] [facility] [place]. History of vascular access device permacath insertion in right side of chest Hx of hernia repair abdominal hernia and removed PD catheter due to infection 06/2018 Family History Mother Family history of reaction to anesthesia VERY GROGGY AFTER 10 HOUR SURGERY Family history of diabetes mellitus Grandfather Family history of diabetes mellitus MATERNAL Family/Other Family history of diabetes mellitus MATERNAL AUNT Family hx of colon cancer Brother Family history of diabetes mellitus Social History Smoking Status: Never smoker Second Hand Exposure: No; Do You Dip or Chew Tobacco: Yes; Tobacco Cessation Education Requested by Patient: No Hx Alcohol Use: No Hx Substance Use: No Preferred Language: Moroccan Communication Ability: Effective Visual Impairment: No Limitations Motor And Generator Brush Cutter Required: No Beliefs That Will Affect Care: None Current Living Situation: Family Current [facility] Situation Comment[facility] [id number] Other Information That Helps Us Care for You: No Feels Safe at Home: Yes Safety Concerns: Feels Safe At This Time
== END 2020-05-27 10:34 | disposition short-term general hospital (02) | DRG 314 ==
LOC: ED 20:35 → 2N 05-26 00:20 → SUATTDRO 05-26 00:20 → 2N 05-26 02:09

== ENCOUNTER 2021-05-11 12:28 | Inpatient (IN) ==
--- NOTE | 2021-05-11 15:42 | XRay Report ---
XR chest 1V portable CLINICAL HISTORY: SEPSIS COMPARISON STUDY: Chest radiograph May 27, 2020. FINDINGS: The right internal jugular dual lumen catheter has been removed since prior exam. There are median sternotomy wires. Moderate cardiomegaly is unchanged. There is no pneumothorax or pleural eff usion. There is no consolidation. There is pulmonary vascular congestion. IMPRESSION: Stable cardiomegaly and pulmonary vascular congestion. ACT 112: Negative or not required by law. Electronically signed by: Abhinav Hopkins M.D. 05/11/2021 3:41 PM
--- NOTE | 2021-05-11 15:44 | XRay Report ---
XR hand RT min 3V routine HISTORY: 50 years-old Male eval for osteo acute right hand pain COMPARISON: None TECHNIQUE: 3 views of the right hand FINDINGS: Extensive arterial calcifications. Mild multifocal osteoarthritis. No acute fracture, dislocation or opaque foreign body. Subtle periarticular lucencies are noted involving the third middle phalangeal h ead. IMPRESSION: 1. Subtle periarticular lucencies involving the third middle phalangeal head reflect subcortical cyst s versus subtle erosions. 2. Mild multifocal osteoarthritis without acute fracture. 3. Extensive arterial calcifications. ACT 112: Negative or not required by law. The above report was generated using voice recognition software. It may contain grammatical, syntax o r spelling errors. Electronically signed by: Oliverio Coronado M.D. 05/11/2021 3:43 PM
--- NOTE | 2021-05-11 16:10 | Emergency Department Note ---
History of Present Illness General Chief complaint: Infection, Wound Stated complaint: WOUND ON R MIDDLE FINGER AND L HAND Time Seen by Provider: 05/11/21 15:17 Source: patient and family Mode of arrival: ambulatory Limitations: no limitations History of Present Illness Maximum Pain Intensity: 1 This patient is a 50-year-old male who has a history of end-stage renal disease on dialysis as well as diabetes comes in after concern for an ulcer on his right third finger and he has a small blood blister on his left hand. The ulcer in his third finger started as a blister he did not pop it is become flat and necrotic looking out there is no surrounding redness. He has a small blister on the dorsal aspect of the left hand that has some blood in its not red either. He said no fever and this was measured at dialysis today. He does receive dialysis Friday, Friday, Friday. He has not missed any dialysis. He has had no chest pain or abdominal pain. No shortness of breath. No trauma or injury. He has had his Covid vaccine. He does feel well otherwise. Home Medications Medication Instructions Recorded Confirmed Type levothyroxine 25 mcg tablet 25 mcg PO QAM #0 11/02/15 05/11/21 History diphenhydramine HCl 25 mg capsule 25 mg PO DAILY PRN #0 04/23/16 05/11/21 History (Benadryl) sevelamer carbonate 800 mg tablet 800 - 1,600 mg PO DIRECTED #0 08/23/16 05/11/21 History (Renvela) isosorbide mononitrate 30 mg 30 mg PO QAM #0 tab 11/09/17 05/11/21 History tablet,extended release 24 hr furosemide 80 mg tablet 80 - 160 mg PO AMPM #0 tab 03/30/18 05/11/21 History tamsulosin 0.4 mg capsule 0.4 mg PO QAM #0 04/25/18 05/11/21 History pantoprazole 40 mg tablet,delayed 40 mg PO QAM 06/16/18 05/11/21 History release (Protonix) carvedilol 25 mg tablet 25 mg PO BID 02/21/20 05/11/21 History lisinopril 40 mg tablet 40 mg PO QAM 02/21/20 05/11/21 History patiromer calcium sorbitex 8.4 8.4 g PO Q2D 04/12/20 05/11/21 History gram oral powder packet (Veltassa) acetaminophen 500 mg tablet 1,000 mg PO Q6H PRN 05/11/21 05/11/21 History (Tylenol Extra Strength) amlodipine 10 mg tablet 10 mg PO DAILY 05/11/21 05/11/21 History aspirin 81 mg tablet,delayed 81 mg PO PM 05/11/21 05/11/21 History release atorvastatin 80 mg tablet 80 mg PO DAILY 05/11/21 05/11/21 History cinacalcet 30 mg tablet (Sensipar) 30 mg PO DAILY 05/11/21 05/11/21 History ferric citrate 210 mg iron tablet 210 - 420 mg PO DIRECTED 05/11/21 05/11/21 History (Auryxia) fluorouracil 5 % topical cream 1 applic TOPICAL BID 05/11/21 05/11/21 History Allergies Allergy/AdvReac Type Severity Reaction Status Date / Time Penicillins Allergy Severe ANAPHYLAXIS Verified 05/11/21 19:31 Past Med/Surg History Medical History (Updated 05/12/21 @ 12:03 by Cameron Sumner MD) Anemia due to end stage renal disease CAD (coronary artery disease) s/p CABG in 2013 Chronic kidney disease STAGE 5-- 3xwk, m,w,f at [facility] Follows with dr. jyothi Ramirez located to right upper chest Congestive heart failure Combined systolic and diastolic, compensated. Echo 2017 showed EF 40-45%. Prior to CABG EF was 30-34%. Diabetes mellitus, type 2 INSULIN DEPENDENT Diabetic neuropathy Diabetic retinopathy BOTH EYES OPERATED ON Hyperlipidemia Hypertension Hypothyroidism Ischemic cardiomyopathy Myocardial Infarction NSTEMI 02/2014--FOLLOWS W DR. CAMACHO Osteoarthritis Peripheral neuropathy Thrombocytopenia Chronic. Surgical History Fistula PLACED IN L WRIST--DOES NOT WORK and in process of placing new one H/O eye surgery RT/LT History of cardiac cath 02/2014--NO STENTS History of coronary artery bypass graft [place]ADRIPLE [place] [facility] [place]. History of vascular access device permacath insertion in right side of chest Hx of hernia repair abdominal hernia and removed PD catheter due to infection 06/2018 Family History Mother Family history of reaction to anesthesia VERY GROGGY AFTER 10 HOUR SURGERY Family history of diabetes mellitus Grandfather Family history of diabetes mellitus MATERNAL Family/Other Family history of diabetes mellitus MATERNAL AUNT Family hx of colon cancer Brother Family history of diabetes mellitus Social History Smoking Status: Never smoker Second Hand Exposure: No; Hx Alcohol Use: No Hx Substance Use: No Preferred Language: French Communication Ability: Effective Visual Impairment: No Limitations Transit Specialist Required: No Beliefs That Will Affect Care: None Current Living Situation: Family Current Living Situation Comment: Brother Other Information That Helps Us Care for You: No Feels Safe at Home: Yes Safety Concerns: Feels Safe At This Time Assistive Devices: None Review of Systems A total of 10 systems reviewed and were otherwise negative Physical Exam Vital Signs Vital Signs - 24 hr 05/11/21 13:26 Temperature 37 C Temperature Source Temporal Artery Scan Pulse Rate 71 Respiratory Rate 18 Respiratory Effort / Characteristics Non-Labored Spontaneous Respiratory Depth Normal Respiratory Pattern Regular Blood Pressure 131/75 Blood Pressure Mean 93 Blood Pressure Position Sitting Pulse Oximetry 98 Oxygen Delivery Method Room Air Sepsis Recent Fever Within 48 Hours No Sepsis New/Unexplained Change in Mental Status N/A Sepsis Action Taken by Nursing No Action Required General: Well developed well nourished middle-age male who appears in no acute distress, breathing comfortably on room air. Normal speech HEENT: Normal cephalic atraumatic. Pupils are equal round and reactive to light. Extraocular movements are intact. Oropharynx is pink with moist mucous membranes. No swelling of the mouth lips or tongue. Neck: Supple with a midline trachea. No meningeal signs or stiffness, no JVD or bruits. No Stridor. Chest: Clear to auscultation bilaterally. No wheezes or rhonchi. No increased work of breathing. Heart: Regular rate and rhythm without murmurs or gallops. Abdomen: Soft nontender, nondistended without rebound guarding or rigidity. Extremities: No cyanosis clubbing or edema. No calf tenderness or assymetry. There is a small superficial blister on the left hand that has a small amount of blood. There is no redness or cellulitis. On the right hand on the finger pad of the third finger is a scab/necrotic area. There is no pus or drainage. There is no redness or warmth. Spine/Back. Non tender to palpation. No CVA tenderness Skin: Good turgor without rashes. Neurologic exam: Cranial nerves two through 12 are intact. Motor and sensation are intact and symmetrical throughout. Course Administered Medications Discontinued Medications Amlodipine Besylate (Amlodipine Besylate 5 Mg Tab) 10 mg PO DAILY HALI Stop: 06/11/21 08:59 Last Admin: 05/12/21 07:36 Dose: 10 mg Documented by: [id number] Aspirin (Aspirin 81 Mg Ectab) 81 mg PO PM HALI Stop: 06/10/21 23:06 Last Admin: 05/12/21 00:58 Dose: 81 mg Documented by: [id number] Atorvastatin Calcium (Atorvastatin 40 Mg Tab) 80 mg PO DAILY HALI Stop: 06/11/21 08:59 Last Admin: 05/12/21 07:35 Dose: 80 mg Documented by: [id number] Carvedilol (Carvedilol 25 Mg Tab) 25 mg PO BID HALI Stop: 06/10/21 23:06 Last Admin: 05/12/21 07:34 Dose: 25 mg Documented by: [id number] Admin: 05/12/21 00:58 Dose: 25 mg Documented by: [id number] Cinacalcet (Cinacalcet Hcl 30 Mg Tab) 30 mg PO DAILY HALI Stop: 06/11/21 08:59 Last Admin: 05/12/21 07:36 Dose: 30 mg Documented by: [id number] Doxycycline Hyclate (Doxycycline Home Pack 100 Mg/Cap) 1 homepack PO ONE ONE Stop: 05/11/21 17:20 Last Admin: 05/11/21 17:29 Dose: 1 homepack Documented by: [id number] Furosemide (Furosemide 80 Mg Tab) 160 mg PO QAM HALI Stop: 06/11/21 08:59 Last Admin: 05/12/21 07:35 Dose: 160 mg Documented by: [id number] Vancomycin HCl 2,000 mg/ (Sodium Chloride) 540 mls @ 200 mls/hr IV NOW STA Stop: 05/11/21 20:15 Last Infusion: 05/11/21 20:58 Dose: 0 mls/hr Documented by: [id number] Admin: 05/11/21 18:12 Dose: 200 mls/hr Documented by: [id number] Cefepime HCl 1,000 mg/ Syringe 11.3 mls @ 5.5 mls/min IV ONE ONE; Protocol Stop: 05/12/21 00:17 Last Admin: 05/12/21 00:58 Dose: 5.5 mls/min Documented by: [id number] Daptomycin 500 mg/ Syringe 10 mls @ 5 mls/min IV Q2D [facility]; Protocol Stop: 06/23/21 00:00 Last Admin: 05/12/21 00:58 Dose: 5 mls/min Documented by: [id number] Insulin Aspart (Insulin Aspart 100 Units/Ml 3 Ml Pen) 0 units SC ACHS [facility] Stop: 06/11/21 00:29 Last Admin: 05/12/21 13:28 Dose: Not Given Documented by: [id number] Admin: 05/12/21 08:54 Dose: Not Given Documented by: [id number] Admin: 05/12/21 00:35 Dose: Not Given Documented by: [id number] Isosorbide Mononitrate (Isosorbide [place] Extended Rel 30 Mg Tabcr) 30 mg PO [facility] Stop: 06/11/21 08:59 Last Admin: 05/12/21 07:36 Dose: 30 mg Documented by: [id number] Levothyroxine Sodium (Levothyroxine Sodium 25 Mcg Tablet) 25 mcg PO DAILYBB [facility] Stop: 06/11/21 06:29 Last Admin: 05/12/21 06:20 Dose: 25 mcg Documented by: [id number] Lidocaine HCl (Lidocaine 1% Local 20 Ml Vial) Confirm Administered Dose 20 ml .ROUTE .STK-MED ONE Stop: 05/12/21 09:07 Last Admin: 05/12/21 10:00 Dose: 20 ml Documented by: [id number] Lidocaine HCl (Lidocaine 1% Local 20 Ml Vial) 3 ml INJ NOW ONE Stop: 05/12/21 15:35 Last Admin: 05/12/21 15:38 Dose: Not Given Documented by: [id number] Lisinopril (Lisinopril 40 Mg Tab) 40 mg PO QAM [facility] Stop: 06/11/21 08:59 Last Admin: 05/12/21 07:36 Dose: 40 mg Documented by: [id number] Mislucioaneous (Auryxia~Order Awaiting Action) 1 ea N/A QS [facility] Stop: 06/11/21 07:59 Last Admin: 05/12/21 07:36 Dose: Not Given Documented by: [id number] Miscellaneous (Fluorouracil Cream~Order Awaiting Action) 1 ea N/A QS [facility] Stop: 06/11/21 07:59 Last Admin: 05/12/21 07:37 Dose: Not Given Documented by: [id number] Pantoprazole Sodium (Pantoprazole 40 Mg Tab) 40 mg PO QAM [facility] Stop: 06/11/21 08:59 Last Admin: 05/12/21 07:35 Dose: 40 mg Documented by: [id number] Patiromer (Patiromer Calcium Sorbitex 8.4 Gm Pack) 8.4 gm PO Q2D [facility] Stop: 06/11/21 08:59 Last Admin: 05/12/21 13:53 Dose: 8.4 gm Documented by: [id number] Sevelamer HCl (Sevelamer Hcl 800 Mg Tablet) 1,600 mg PO TIDM [facility] Stop: 06/11/21 07:59 Last Admin: 05/12/21 13:28 Dose: Not Given Documented by: [id number] Admin: 05/12/21 07:34 Dose: 1,600 mg Documented by: [id number] Tamsulosin HCl (Tamsulosin Hcl 0.4 Mg Cap) [facility] Stop: 06/11/21 08:59 Last Admin: 05/12/21 07:35 Dose: 0.4 mg Documented by: [id number] Medical Decision Making Differential Diagnosis Ulcer, cellulitis, sepsis, abscess, end-stage renal disease, electrolyte or meta bolic abnormality Medical Records Attestation: I reviewed the patient's medical records. Home Medications Current Medication List: was personally reviewed by me Laboratory Data Attestation: I reviewed the patient's lab results. Result diagrams: 05/12/21 07:36 05/12/21 07:36 Lab Results 05/11/21 05/11/21 05/11/21 Range/Units 15:52 15:54 15:54 WBC 3.25 L (4.8-10.8) K/uL RBC 2.90 L (4.7-6.1) M/uL Hgb 9.6 L (14.0-18.0) g/dL Hct 27.5 L (42-52) % MCV 94.8 (80-100) fL MCH 33.1 (25-34) pg MCHC 34.9 (32-36) g/dL RDW Std Deviation 43.3 (36.4-46.3) fL RDW Coeff of Ira 12.5 (11.5-14.5) % Plt Count 92 L (130-400) K/uL MPV 9.6 (7.4-10.4) fL Immature Gran % (Auto) 0.0 % Neut % (Auto) 62.1 % Lymph % (Auto) 22.2 % [place] % (Auto) 12.9 % Eos % (Auto) 2.8 % Baso % (Auto) 0.0 % Neut # (Auto) 2.02 (1.4-6.5) K/uL Lymph # (Auto) 0.72 L (1.2-3.4) K/uL [place] # (Auto) 0.42 (0.11-0.59) K/uL Eos # (Auto) 0.09 (0-0.5) K/uL Baso # (Auto) 0.00 (0-0.2) K/uL Immature Gran # (Auto) 0.00 (0.00-0.02) K/uL PT 11.2 (9.0-12.0) Seconds INR 1.1 (0.9-1.1) APTT 25.8 (21.0-31.0) Seconds PTT Ratio 1.0 Sodium (136-145) mmol/L Potassium (3.5-5.1) mmol/L Chloride (98-107) mmol/L Carbon Dioxide (21-32) mmol/L Anion Gap (3-11) BUN (7-18) mg/dl Creatinine (0.6-1.4) mg/dl Est Cr Clr Drug Dosing ml/min Est GFR ( Amer) ml/min Est GFR (Non-Af Amer) ml/min BUN/Creatinine Ratio (10-20) Glucose (70-99) mg/dl Lactate (0.4-2.0) mmol/L Calcium (8.5-10.1) mg/dl Magnesium (1.8-2.4) mg/dl Total Bilirubin (0.2-1) mg/dl AST (15-37) U/L ALT (12-78) U/L Alkaline Phosphatase (45-117) U/L Total Protein (6.4-8.2) gm/dl Albumin (3.4-5.0) gm/dl Globulin (2.5-4.0) gm/dl Albumin/Globulin Ratio (0.9-2) Procalcitonin 0.53 H (0-0.5) ng/ml 05/11/21 05/11/21 Range/Units 15:54 15:54 WBC (4.8-10.8) K/uL RBC (4.7-6.1) M/uL Hgb (14.0-18.0) g/dL Hct (42-52) % MCV (80-100) fL MCH (25-34) pg MCHC (32-36) g/dL RDW Std Deviation (36.4-46.3) fL RDW Coeff of Ira (11.5-14.5) % Plt Count (130-400) K/uL MPV (7.4-10.4) fL Immature Gran % (Auto) % Neut % (Auto) % Lymph % (Auto) % [place] % (Auto) % Eos % (Auto) % Baso % (Auto) % Neut # (Auto) (1.4-6.5) K/uL Lymph # (Auto) (1.2-3.4) K/uL [place] # (Auto) (0.11-0.59) K/uL Eos # (Auto) (0-0.5) K/uL Baso # (Auto) (0-0.2) K/uL Immature Gran # (Auto) (0.00-0.02) K/uL PT (9.0-12.0) Seconds INR (0.9-1.1) APTT (21.0-31.0) Seconds PTT Ratio Sodium 132 L (136-145) mmol/L Potassium 4.1 (3.5-5.1) mmol/L Chloride 96 L (98-107) mmol/L Carbon Dioxide 32 (21-32) mmol/L Anion Gap 4.0 (3-11) BUN 20 H (7-18) mg/dl Creatinine 6.09 H* (0.6-1.4) mg/dl Est Cr Clr Drug Dosing 17.6 ml/min Est GFR ( Amer) 11.6 ml/min Est GFR (Non-Af Amer) 10.0 ml/min BUN/Creatinine Ratio 3.3 L (10-20) Glucose 174 H (70-99) mg/dl Lactate 1.7 (0.4-2.0) mmol/L Calcium 8.4 L (8.5-10.1) mg/dl Magnesium 2.2 (1.8-2.4) mg/dl Total Bilirubin 0.6 (0.2-1) mg/dl AST 15 (15-37) U/L ALT 22 (12-78) U/L Alkaline Phosphatase 125 H (45-117) U/L Total Protein 7.9 (6.4-8.2) gm/dl Albumin 3.9 (3.4-5.0) gm/dl Globulin 4.0 (2.5-4.0) gm/dl Albumin/Globulin Ratio 1.0 (0.9-2) Procalcitonin (0-0.5) ng/ml Imaging Data Attestation: I personally reviewed and interpreted this imaging study as follows: Radiologist's Impression: Chest X-Ray 05/11/21 15:30 XR chest 1V portable CLINICAL HISTORY: SEPSIS COMPARISON STUDY: Chest radiograph May 27, 2020. FINDINGS: The right internal jugular dual lumen catheter has been removed since prior exam. There are median sternotomy wires. Moderate cardiomegaly is unc hanged. There is no pneumothorax or pleural effusion. There is no consolidation. There is pulmonary vascular congestion. IMPRESSION: Stable cardiomegaly and pulmonary vascular congestion. ACT 112: Negative or not required by law. Electronically signed by: Abhinav Hopkins M.D. 05/11/2021 3:41 PM Hand X-Ray 05/11/21 15:30 XR hand RT min 3V routine HISTORY: 50 years-old Male eval for osteo acute right hand pain COMPARISON: None TECHNIQUE: 3 views of the right hand FINDINGS: Extensive arterial calcifications. Mild multifocal osteoarthritis. No acute fracture, dislocation or opaque foreign body. Subtle periarticular lucencies are noted involving the third middle phalangeal head. IMPRESSION: 1. Subtle periarticular lucencies involving the third middle phalangeal head reflect subcortical cysts versus subtle erosions. 2. Mild multifocal osteoarthritis without acute fracture. 3. Extensive arterial calcifications. ACT 112: Negative or not required by law. The above report was generated using voice recognition software. It may contain grammatical, syntax or spelling errors. Electronically signed by: Oliverio Coronado M.D. 05/11/2021 3:43 PM ECG Data Attestation: I personally reviewed and interpreted this ECG as follows: Indication: + other (Sepsis/infection) Rate (beats per minute): 64 Rhythm: + normal sinus ECG Intervals/blocks: + Normal QRS, + Normal QT and + Normal ID ECG [place]: + Normal ECG ST segments: + Normal ST segments ECG Findings: no PACs or no PVCs Comparison ECG Date: from (05/25/20) Change: no significant change MDM Narrative This patient comes in as described above. He was placed in room B12. He is here for treatment and evaluation of an ulcer on his middle finger. He looks well is not missed dialysis. IV access was established a full sepsis type work- up was obtained x-rays were obtained as well he was reassessed frequently. He has no white count or fever or elevation of lactic acid. He has no acute electrolyte or metabolic abnormalities besides baseline renal failure. He has not missed any dialysis. His x-ray of his finger is concerning for possible erosions in the bone and the radiologist I talked on the phone could not rule out osteomyelitis. It could possibly be just arthritis but it is in the area of the ulcer. In light of this, I do think he needs to be admitted for IV antibiotics we did order vancomycin IV [facility]. Continuous cardiac monitoring: Orders placed in EMR for continuous cardiac monitoring and upon my evaluation he was noted to be in normal sinus rhythm with a rate of 70 Impression & Plan Osteomyelitis, ESRD on dialysis, Ulcer, Lab test negative for COVID-19 virus Discharge Plan Visit Data Chief Complaint: Infection, Wound Stated Complaint: WOUND ON R MIDDLE FINGER AND L HAND ED Provider: Mann Sutton Discharge Problem: Osteomyelitis, ESRD on dialysis, Ulcer, Lab test negative for COVID-19 virus Patient Disposition: Admitted As Inpatient Condition: Good Discharge Instructions Interventions: ED Discharge Assessment Last Done: 05/11/21 21:25 Discharge Problem: Osteomyelitis Qualifiers: Osteomyelitis type: unspecified type Osteomyelitis location: hand Laterality: right Qualified Code(s): M86.9 - Osteomyelitis, unspecified
[2021-05-11 16:19] LABS: INR 1.1 (0.9-1.1); Partial Thromboplastin Time 25.8 Seconds (21.0-31.0); Prothrombin Time 11.2 Seconds (9.0-12.0)
[2021-05-11 16:25] LABS: Hematocrit (blood only) 27.5 % (42-52); Hemoglobin 9.6 g/dL (14.0-18.0); Mean Corpuscular Hemoglobin 33.1 pg (25-34); Mean Corpuscular Hgb Conc 34.9 g/dL (32-36); Mean Corpuscular Volume 94.8 fL (80-100); Mean Platelet Volume 9.6 fL (7.4-10.4); Platelet Count 92 K/uL (130-400); RDW Coefficient of Variation 12.5 % (11.5-14.5); RDW Standard Deviation 43.3 fL (36.4-46.3); White Blood Count 3.25 K/uL (4.8-10.8)
[2021-05-11 16:46] LABS: Albumin Level 3.9 gm/dl (3.4-5.0); BUN Creatinine Ratio 3.3 (10-20); Bilirubin,Total 0.6 mg/dl (0.2-1); Calcium 8.4 mg/dl (8.5-10.1); Creatinine Clr Calc Pharmacy 17.6 ml/min; Est GFR (African American) 11.6 ml/min; Magnesium 2.2 mg/dl (1.8-2.4); Potassium 4.1 mmol/L (3.5-5.1); Total Protein 7.9 gm/dl (6.4-8.2)
[2021-05-11 16:53] LABS: Eosinophils # (auto) 0.09 K/uL (0-0.5); Eosinophils % (auto) 2.8 %; Lymphocytes # (auto) 0.72 K/uL (1.2-3.4); Lymphocytes % (auto) 22.2 %; Monocytes # (auto) 0.42 K/uL (0.11-0.59); Monocytes % (auto) 12.9 %; Neutrophils # (auto) 2.02 K/uL (1.4-6.5); Neutrophils % (auto) 62.1 %
[2021-05-11] MEDS ORDERED: DOXYCYCLINE HOME PACK 100 MG/CAP PO ONE (17:19)
[2021-05-11] MEDS ORDERED: VANCOMYCIN HCL 2,000 MG in SODIUM CHLORIDE 0.9% 500 ML IV STA (17:34)
[2021-05-11] MEDS ORDERED: CONSULT PHARMACY STA (18:20)
--- NOTE | 2021-05-11 18:43 | History & Physical Report ---
Date of Service May 11, 2021 Assessment & Plan (1) Eschar of finger: Plan: Possible osteomyelitis right middle finger Pt is 50 y/o M with PMH ESRD on HD on MWF schedule, HTN, dyslipidemia, CAD s/p CABG, chronic systolic and diastolic congestive heart failure, DM II, chronic anemia, chronic thrombocytopenia, history hyperkalemia, obesity presented to ER with complaint of ulcer to right middle finger x2 weeks. 2 weeks ago noticed a blister then scabbed and now appears ulcer. Denies fever/chills, red streaking, discharge from area In ER pt afebrile, No leukocytosis, normal lactate. Finger Xray: Subtle periarticular lucencies involving the third middle phalan geal head reflect subcortical cysts versus subtle erosions. In ER given vancomycin Cultures pending Cefepime, daptomycin Ortho consult Obtain MRI for further evaluation to r/o osteomyelitis CBC, BMP in a.m. ESRD (end stage renal disease) on dialysis: On MWF schedule Last HD Today on 05/11/21 Continue renal meds Nephrology consult Coronary artery disease: S/P CABG No CP, SOB Continue carvedilol, atorvastatin, isosorbide, aspirin Chronic CHF: Chronic systolic and diastolic CHF Appears euvolemic Continue lasix Hypertension: Continue amlodipine, lisinopril, carvedilol Diabetes mellitus, type II: A1c: 6.0 on 11/2020 Now diet controlled Novolog sliding scale per protocol Chronic anemia, Anemia chronic disease Chronic thrombocytopenia Hgb: 9.6 (baseline 9-10) Plt: 92 (baseline low 100's) Monitor CBC H/O Hyperkalemia: Continue Veltassa Hypothyroidism: Continue levothyroxine DVT Prophylaxis SCDs for now Full Code as per discussion with pt Follows with Dr Marcelino for routine care Pt was seen and care coordinated with Dr Bermudez. See addendum (2) Osteomyelitis of finger of right hand: History of Present Illness Chief Complaint: Right middle Finger ulcer Primary Care Provider: Dalton Marcelino MD Pt is 50 y/o M with PMH ESRD on HD on MWF schedule, HTN, dyslipidemia, CAD s/p CABG, chronic systolic and diastolic congestive heart failure, DM II, chronic anemia, chronic thrombocytopenia, history hyperkalemia, obesity presented to ER with complaint of ulcer to right middle finger x2 weeks. Patient states 2 weeks ago noticed a blister to palmar aspect of right middle finger. Patient states the following day he woke up and blister had popped. Reports area scabbed over and then appeared ulcerated. Denies any purulent discharge or surrounding erythema from area. Denies pain, fever, chills. Patient reports blister to left dorsal hand. He thinks that he may have burned the area. Denies any surrounding erythema or edema. Patient reports couple weeks ago had biopsies of lesions to right forearm and left hand and is now on Efudex cream for the next several weeks. Patient reports history of osteomyelitis in the past. Denies fever/chills, diaphoresis, N/V/D/C, PRITCHARD, dizziness, syncope, vision changes, neck pain, CP, SOB, orthopnea, palpitations, cough, sore throat, choking, otalgia, rhinorrhea, abdominal pain, paresthesias, weakness, extremity weakness, extremity edema, urinary symptoms. In ER pt afebrile, No leukocytosis, normal lactate. Xray: Subtle periarticular lucencies involving the third middle phalangeal head reflect subcortical cysts versus subtle erosions. In ER given vancomycin Allergies Allergy/AdvReac Type Severity Reaction Status Date / Time Penicillins Allergy Severe ANAPHYLAXIS Verified 05/11/21 19:31 Home Medications Medication Instructions Recorded Confirmed Type levothyroxine 25 mcg tablet 25 mcg PO QAM #0 11/02/15 05/11/21 History diphenhydramine HCl 25 mg capsule 25 mg PO DAILY PRN #0 04/23/16 05/11/21 History (Benadryl) sevelamer carbonate 800 mg tablet 800 - 1,600 mg PO DIRECTED #0 08/23/16 05/11/21 History (Renvela) isosorbide mononitrate 30 mg 30 mg PO QAM #0 tab 11/09/17 05/11/21 History tablet,extended release 24 hr furosemide 80 mg tablet 80 - 160 mg PO AMPM #0 tab 03/30/18 05/11/21 History tamsulosin 0.4 mg capsule 0.4 mg PO QAM #0 04/25/18 05/11/21 History pantoprazole 40 mg tablet,delayed 40 mg PO QAM 06/16/18 05/11/21 History release (Protonix) carvedilol 25 mg tablet 25 mg PO BID 02/21/20 05/11/21 History lisinopril 40 mg tablet 40 mg PO QAM 02/21/20 05/11/21 History patiromer calcium sorbitex 8.4 8.4 g PO Q2D 04/12/20 05/11/21 History gram oral powder packet (Veltassa) acetaminophen 500 mg tablet 1,000 mg PO Q6H PRN 05/11/21 05/11/21 History (Tylenol Extra Strength) amlodipine 10 mg tablet 10 mg PO DAILY 05/11/21 05/11/21 History aspirin 81 mg tablet,delayed 81 mg PO PM 05/11/21 05/11/21 History release atorvastatin 80 mg tablet 80 mg PO DAILY 05/11/21 05/11/21 History cinacalcet 30 mg tablet (Sensipar) 30 mg PO DAILY 05/11/21 05/11/21 History ferric citrate 210 mg iron tablet 210 - 420 mg PO DIRECTED 05/11/21 05/11/21 History (Auryxia) fluorouracil 5 % topical cream 1 applic TOPICAL BID 05/11/21 05/11/21 History Past Med/Surg History Medical History (Updated 05/11/21 @ 23:52 by Dori Bermudez, DO) Anemia due to end stage renal disease CAD (coronary artery disease) s/p CABG in 2013 Chronic kidney disease STAGE 5-- 3xwk, m,w,f at [facility] Follows with dr. jyothi Silvaacatarnaud located to right upper chest Congestive heart failure Combined systolic and diastolic, compensated. Echo 2017 showed EF 40-45%. Prior to CABG EF was 30-34%. Diabetes mellitus, type 2 INSULIN DEPENDENT Diabetic neuropathy Diabetic retinopathy BOTH EYES OPERATED ON Hyperlipidemia Hypertension Hypothyroidism Ischemic cardiomyopathy Myocardial Infarction NSTEMI 02/2014--FOLLOWS W DR. CAMACHO Osteoarthritis Peripheral neuropathy Thrombocytopenia Chronic. Surgical History Fistula PLACED IN L WRIST--DOES NOT WORK and in process of placing new one H/O eye surgery RT/LT History of cardiac cath 02/2014--NO STENTS History of coronary artery bypass graft QUADRIPLE BYPASS @ [facility] [place] 02/2014. History of vascular access device permacath insertion in right side of chest Hx of hernia repair abdominal hernia and removed PD catheter due to infection 06/2018 Family History Mother Family history of reaction to anesthesia VERY GROGGY AFTER 10 HOUR SURGERY Family history of diabetes mellitus Grandfather Family history of diabetes mellitus MATERNAL Family/Other Family history of diabetes mellitus MATERNAL AUNT Family hx of colon cancer Brother Family history of diabetes mellitus Social History Smoking Status: Never smoker Second Hand Exposure: No; Hx Alcohol Use: No Hx Substance Use: No Preferred Language: Argentine Communication Ability: Effective Visual Impairment: No Limitations Board [employer] Required: No Beliefs That Will Affect Care: None Current Living Situation: Family Current Living Situation Comment: [place]/ [place] [address] Feels Safe at Home: Yes Assistive Devices: Glasses Review of Systems Review of Systems: All systems reviewed & are unremarkable except as noted in HPI & below Physical Exam Physical Exam: General: No acute distress, obese Head: normocephalic, atraumatic Eyes: conjunctiva non-injected, anicteric ENT: normal inspection external ears, nose, mucous membranes moist Neck: supple, trachea midline Lungs: clear, no respiratory distress, no wheezing/rhonchi/rales CV: RRR, no pretibial edema Abd: normal BS, soft, non-tender Ext: no cyanosis, no calf tenderness; right hand: Right distal middle finger palmar aspect with approximately 1.5 cm eschar without surrounding edema. No red streaking. No purulent drainage Neuro: A&O x 3, no focal deficits noted, normal affect Skin: warm, dry, left dorsal hand with bullous Results & Data Results & Data ([facility]) Vital Signs (Past 12 Hours) Vital Signs Temp Pulse Resp BP Pulse Ox 05/11/21 13:26 37 C 71 18 131/75 98 Laboratory Results Short CBC 05/11/21 Range/Units 15:54 WBC 3.25 L (4.8-10.8) K/uL Hgb 9.6 L (14.0-18.0) g/dL Hct 27.5 L (42-52) % Plt Count 92 L (130-400) K/uL BMP 05/11/21 15:54 Sodium 132 L Potassium 4.1 Chloride 96 L Carbon Dioxide 32 BUN 20 H Creatinine 6.09 H* Glucose 174 H Calcium 8.4 L Liver Function 05/11/21 Range/Units 15:54 Total Bilirubin 0.6 (0.2-1) mg/dl AST 15 (15-37) U/L ALT 22 (12-78) U/L Alkaline Phosphatase 125 H (45-117) U/L Albumin 3.9 (3.4-5.0) gm/dl Diagnostic Findings Chest X-Ray 05/11/21 15:30 XR chest 1V portable CLINICAL HISTORY: SEPSIS COMPARISON STUDY: Chest radiograph May 27, 2020. FINDINGS: The right internal jugular dual lumen catheter has been removed since prior exam. There are median sternotomy wires. Moderate cardiomegaly is unchanged. There is no pneumothorax or pleural effusion. There is no consolidation. There is pulmonary vascular congestion. IMPRESSION: Stable cardiomegaly and pulmonary vascular congestion. ACT 112: Negative or not required by law. Electronically signed by: Abhinav Hopkins M.D. 05/11/2021 3:41 PM Hand X-Ray 05/11/21 15:30 XR hand RT min 3V routine HISTORY: 50 years-old Male eval for osteo acute right hand pain COMPARISON: None TECHNIQUE: 3 views of the right hand FINDINGS: Extensive arterial calcifications. Mild multifocal osteoarthritis. No acute fracture, dislocation or opaque foreign body. Subtle periarticular lucencies are noted involving the third middle phalangeal head. IMPRESSION: 1. Subtle periarticular lucencies involving the third middle phalangeal head reflect subcortical cysts versus subtle erosions. 2. Mild multifocal osteoarthritis without acute fracture. 3. Extensive arterial calcifications. ACT 112: Negative or not required by law. The above report was generated using voice recognition software. It may contain grammatical, syntax or spelling errors. Electronically signed by: Oliverio Coronado M.D. 05/11/2021 3:43 PM Code Status & VTE Plan VTE Prophylaxis Plan VTE Prophylaxis will be ordered: Yes Supervising Physician Co-Signing Physician Notes 50-year-old ESRD patient with a new eschar wound worsened over the past 2 weeks on his right middle finger. Patient denies any pain, however this wound is not getting any better. X-ray suggests erosions. Patient is not septic and is clinically otherwise well. Physical exam as above. Agree with IV antibiotics pending further work-up with MRI. Appreciate Ortho thoughts. Aidan, DO
[2021-05-11] MEDS ORDERED: ASPIRIN 81 MG ECTAB PO SCH (23:07)
[2021-05-11] MEDS ORDERED: CARBOHYDRATES FOR HYPOGLYCEMIA PO PRN (23:07)
[2021-05-11] MEDS ORDERED: ACETAMINOPHEN 325 MG TAB PO PRN (23:07)
[2021-05-11] MEDS ORDERED: GLUCAGON FOR INJ 1 MG VIAL SQ PRN (23:07)
[2021-05-11] MEDS ORDERED: POLYETHYLENE (MIRALAX) 17 GM PACK PO PRN (23:07)
[2021-05-11] MEDS ORDERED: GLUCOSE 10 TABS/TUBE PO PRN (23:07)
[2021-05-11] MEDS ORDERED: DEXTROSE 50% 50 ML SYRINGE IV PRN (23:07)
[2021-05-11] MEDS ORDERED: GLUCOSE 40% GEL 15 GM TUBE PO PRN (23:07)
[2021-05-12] MEDS ORDERED: DAPTOmycin 500 MG in SYRINGE 0 ML IV SCH
[2021-05-12] MEDS ORDERED: CEFEPIME 1,000 MG in SYRINGE 0 ML IV ONE (00:15)
[2021-05-12] MEDS ORDERED: SEVELAMER HCL 800 MG TABLET PO PRN (00:24)
[2021-05-12] MEDS: INSULIN ASPART 100 UNITS/ML 3 ML PEN SC SCH ×3 (00:35→13:28)
[2021-05-12] MEDS: carvediloL 25 MG TAB PO SCH ×2 (00:58→07:34)
[2021-05-12 05:49] LABS: Appearance Urine Clear (Clear); Bacteria Urine Automated Negative (Negative); Bilirubin Urine Negative (Negative); Blood Urine Negative (Negative); Cast Urine Automated 0 /lpf (0-5); Color Urine Yellow; Glucose Urine UA Trace (Negative); Ketones Urine Negative (Negative); Leukocyte Esterase Urine Negative (Negative); Nitrite Urine Negative (Negative); RBC Urine Automated 0-4 /hpf (0-4); Specific Gravity Urine 1.009 (1.000-1.030); Urobilinogen Urine Negative (Negative); pH Urine 8.5 (4.5-7.5)
[2021-05-12 05:50] LABS: Protein Urine 2+ (Negative)
[2021-05-12 06:15] LABS: Sperm Urine Present (None Prsent)
[2021-05-12] MEDS ORDERED: LEVOTHYROXINE SODIUM 25 MCG TABLET PO SCH (06:30)
[2021-05-12] MEDS: SEVELAMER HCL 800 MG TABLET PO SCH ×2 (07:34→13:28)
--- NOTE | 2021-05-12 07:40 | Electrocardiogram Report ---
Test Reason : Blood Pressure : / mmHG Vent. Rate : 064 BPM Atrial Rate : 064 BPM P-R Int : 192 ms QRS Dur : 094 ms QT Int : 454 ms P-R-T Axes : 024 -08 076 degrees QTc Int : 468 ms Poor data quality, interpretation may be adversely affected Normal sinus rhythm Minor Nonspecific ST abnormality Lateral leads When compared with ECG of 25-MAY-2020 21:40, Nonspecific ST abnormality Anterior leads no longer present Confirmed by Navjot Yates ([id number]) on 05/12/2021 7:40:40 AM Referred By: REFERRED SELF Confirmed By:Navjot Yates
[2021-05-12] MEDS ORDERED: AURYXIA~ORDER AWAITING ACTION SCH (08:00)
[2021-05-12 08:02] LABS: Hematocrit (blood only) 28.6 % (42-52); Hemoglobin 10.4 g/dL (14.0-18.0); Mean Corpuscular Hemoglobin 34.8 pg (25-34); Mean Corpuscular Hgb Conc 36.4 g/dL (32-36); Mean Corpuscular Volume 95.7 fL (80-100); RDW Coefficient of Variation 12.5 % (11.5-14.5); Red Blood Count 2.99 M/uL (4.7-6.1)
[2021-05-12 08:05] LABS: Mean Platelet Volume 9.5 fL (7.4-10.4); Platelet Count 93 K/uL (130-400)
[2021-05-12 08:39] LABS: Estimated Average Glucose 120 mg/dl; Hemoglobin A1C 5.8 % (4.5-5.6)
[2021-05-12 08:40] LABS: Calcium 8.7 mg/dl (8.5-10.1); Creatinine Clr Calc Pharmacy 13.8 ml/min; Est GFR (African American) 8.6 ml/min; Est GFR (Non-African American) 7.4 ml/min; Potassium 4.2 mmol/L (3.5-5.1)
[2021-05-12] MEDS ORDERED: PANTOprazole 40 MG TAB PO SCH (09:00)
[2021-05-12] MEDS ORDERED: amLODIPine BESYLATE 5 MG TAB PO SCH (09:00)
[2021-05-12] MEDS ORDERED: ATORVASTATIN 40 MG TAB PO SCH (09:00)
[2021-05-12] MEDS ORDERED: ISOSORBIDE MONO EXTENDED REL 30 MG TABCR PO SCH (09:00)
[2021-05-12] MEDS ORDERED: FUROSEMIDE 80 MG TAB PO SCH ×2 (09:00→17:00)
[2021-05-12] MEDS ORDERED: TAMSULOSIN HCL 0.4 MG CAP PO SCH (09:00)
[2021-05-12] MEDS ORDERED: PATIROMER CALCIUM SORBITEX 8.4 GM PACK PO SCH (09:00)
[2021-05-12] MEDS ORDERED: CINACALCET HCL 30 MG TAB PO SCH (09:00)
[2021-05-12] MEDS ORDERED: lisinopril 40 MG TAB PO SCH (09:00)
[2021-05-12] MEDS ORDERED: LIDOCAINE 1% LOCAL 20 ML VIAL ONE (09:06)
--- NOTE | 2021-05-12 12:04 | Nephrology Consultation ---
Date of Consultation May 12, 2021 Assessment & Plan (1) ESRD (end stage renal disease) on dialysis: ESRD on HD(mwf) -Last dialyzed on Friday with no complaints. -Electrolytes within normal range, no issues with fluid overload -No need for urgent dialysis today -We will dialyze him again on Friday if still in-house. (2) Eschar of finger: As per primary team. History of Present Illness Reason for Consultation: ESRD patient, dialysis management during hospital stay Attending Physician: Dori Bermudez DO History of Present Illness 50-year-old male with past medical history of ESRD on hemodialysis Friday at [facility], other significant past medical history includes hypertension, dyslipidemia, CAD SP CABG, chronic systolic and diastolic heart, presented to the ER with ulcer of the right middle finger over the last 2-week, history of osteomyelitis and was started on antibiotics. Clinically continue to be well with no fever/chills/nausea vomiting diarrhea, chest pain shortness of breath or orthopnea . Was last dialyzed on Friday without any problems . Allergies Allergy/AdvReac Type Severity Reaction Status Date / Time Penicillins Allergy Severe ANAPHYLAXIS Verified 05/11/21 19:31 Home Medications Medication Instructions Recorded Confirmed Type levothyroxine 25 mcg tablet 25 mcg PO QAM #0 11/02/15 05/11/21 History diphenhydramine HCl 25 mg capsule 25 mg PO DAILY PRN #0 04/23/16 05/11/21 Hist ory (Benadryl) sevelamer carbonate 800 mg tablet 800 - 1,600 mg PO DIRECTED #0 08/23/16 History (Renvela) isosorbide mononitrate 30 mg 30 mg PO QAM #0 tab 11/09/17 05/11/21 History tablet,extended release 24 hr furosemide 80 mg tablet 80 - 160 mg PO AMPM #0 tab 03/30/18 05/11/21 History tamsulosin 0.4 mg capsule 0.4 mg PO QAM #0 04/25/18 05/11/21 History pantoprazole 40 mg tablet,delayed 40 mg PO QAM 06/16/18 05/11/21 History release (Protonix) carvedilol 25 mg tablet 25 mg PO BID 02/21/20 05/11/21 History lisinopril 40 mg tablet 40 mg PO QAM 02/21/20 05/11/21 History patiromer calcium sorbitex 8.4 8.4 g PO Q2D 04/12/20 05/11/21 History gram oral powder packet (Veltassa) acetaminophen 500 mg tablet 1,000 mg PO Q6H PRN 05/11/21 05/11/21 History (Tylenol Extra Strength) amlodipine 10 mg tablet 10 mg PO DAILY 05/11/21 05/11/21 History aspirin 81 mg tablet,delayed 81 mg PO PM 05/11/21 05/11/21 History release atorvastatin 80 mg tablet 80 mg PO DAILY 05/11/21 05/11/21 History cinacalcet 30 mg tablet (Sensipar) 30 mg PO DAILY 05/11/21 05/11/21 History ferric citrate 210 mg iron tablet 210 - 420 mg PO DIRECTED 05/11/21 05/11/21 History (Auryxia) fluorouracil 5 % topical cream 1 applic TOPICAL BID 05/11/21 05/11/21 History Patient History Medical History (Updated 05/12/21 @ 12:03 by Cameron Sumner MD) Anemia due to end stage renal disease CAD (coronary artery disease) s/p CABG in 2013 Chronic kidney disease STAGE 5-- 3xwk, m,w,f at [facility] Follows with dr. jyothi Ramirez located to right upper chest Congestive heart failure Combined systolic and diastolic, compensated. Echo 2017 showed EF 40-45%. Prior to CABG EF was 30-34%. Diabetes mellitus, type 2 INSULIN DEPENDENT Diabetic neuropathy Diabetic retinopathy BOTH EYES OPERATED ON Hyperlipidemia Hypertension Hypothyroidism Ischemic cardiomyopathy Myocardial Infarction NSTEMI 02/2014--FOLLOWS W DR. CAMACHO Osteoarthritis Peripheral neuropathy Thrombocytopenia Chronic. Surgical History Fistula PLACED IN L WRIST--DOES NOT WORK and in process of placing new one H/O eye surgery RT/LT History of cardiac cath 02/2014--NO STENTS History of coronary artery bypass graft QUADRIPLE BYPASS @ [facility] [place] 02/2014. History of vascular access device permacath insertion in right side of chest Hx of hernia repair abdominal hernia and removed PD catheter due to infection 06/2018 Family History Mother Family history of reaction to anesthesia VERY GROGGY AFTER 10 HOUR SURGERY Family history of diabetes mellitus Grandfather Family history of diabetes mellitus MATERNAL Family/Other Family history of diabetes mellitus MATERNAL AUNT Family hx of colon cancer Brother Family history of diabetes mellitus Social History Smoking Status: Never smoker Second Hand Exposure: No; Hx Alcohol Use: No Hx Substance Use: No Preferred Language: Frisian Communication Ability: Effective Visual Impairment: No Limitations Cobol Application Developer Required: No Beliefs That Will Affect Care: None Current Living Situation: Family Current Living Situation Comment: Brother Other Information That Helps Us Care for You: No Feels Safe at Home: Yes Safety Concerns: Feels Safe At This Time Assistive Devices: None Review of Systems Review of Systems: All systems reviewed negative unless specified in the HPI. Physical Exam Physical Exam: General: No acute distress, obese Head: normocephalic, atraumatic Eyes: conjunctiva non-injected, anicteric ENT: normal inspection external ears, nose, mucous membranes moist Neck: supple, trachea midline Lungs: clear, no respiratory distress, no wheezing/rhonchi/rales CV: RRR, no pretibial edema Abd: normal BS, soft, non-tender Ext: no cyanosis, no calf tenderness; right hand: Right middle finger in bandage Neuro: A&O x 3, no focal deficits noted, normal affect Skin: warm, dry, left dorsal hand with bullous Results & Data ([facility]) Vital Signs (Past 12 Hours) Vital Signs Temp Pulse Pulse Resp BP BP Pulse Ox 05/12/21 11:20 36.5 C 60 16 118/68 99 05/12/21 08:01 37.0 C 63 18 144/90 H 98 05/12/21 04:45 36.8 C 65 16 119/71 98 05/12/21 03:18 63 05/12/21 00:19 36.8 C 66 18 116/68 98 Laboratory Results 05/12/21 07:36 05/12/21 07:36
[2021-05-12] MEDS ORDERED: LIDOCAINE 1% LOCAL 20 ML VIAL INJ ONE (15:34)
--- NOTE | 2021-05-14 08:15 | Consultation Report ---
DATE OF SERVICE: 05/12/2021 Consulted to see the patient regarding right long finger. Got a blister from working on it a week ago. No traumatic injury. Came into the ER and was admitted. There was some concern about osteomyelitis. He has had no drainage. No fevers. His past medical history is significant for end-stage renal disease, on dialysis, type 2 diabetes associated diabetic collateral damage. Heart disease. Reviewed and noted along with his medications. He is not on a blood thinner other than aspirin. Radiographs of the finger are unremarkable. There is no fracture or dislocation. He does have a little bit of chronic-appearing periarticular erosions, but no bony destruction. This is more like a well punched out lesion consistent with a small cyst. Report noted. Examination of the digit reveals an approximate 1 cm area of eschar formation on the tuft of the finger. He has intact extension and flexion. FDP intact. Sensation intact. Capillary refill less than 2 seconds. There is no swelling or tenderness. No drainage. Verbal informed consent is obtained. Preprocedural timeout performed. Local anesthetic 3 mL of 1% plain lidocaine for a digital block. After adequate analgesia, a finger tourniquet was applied. The area was prepped with Betadine and alcohol, and a sterile field was created. A debridement at the bedside was performed of the hyperkeratotic area surrounding the lesion and also of the eschar itself, which was essentially a thickened crust of a blister. There was no fluid and no drainage. There was no sinus tract. Tissue underneath was completely healthy and this was abraded. This was intact dermis with no connection to the bone. 12-15 mm diameter An Aquacel Ag was applied followed by a bulky soft sterile dressing. There was no significant blood loss and the patient tolerated the procedure well. No specimens. IMPRESSION: Right hand long finger eschar secondary to blister. PLAN: I do not think that he has a deeper infection or osteomyelitis. The MRI is canceled. I think that this can be treated with simple wound care. He can be discharged home when medically stable and can follow up either in my office or in wound care. I do not think that there is any active infection. I do not think that he needs any antibiotics. Job ID: [id number] [facility]
--- NOTE | 2021-05-14 15:29 | Discharge Summary ---
Date of Service May 12, 2021 Admission HPI Per Admitting Provider Pt is 50 y/o M with PMH ESRD on HD on MWF schedule, HTN, dyslipidemia, CAD s/p CABG, chronic systolic and diastolic congestive heart failure, DM II, chronic anemia, chronic thrombocytopenia, history hyperkalemia, obesity presented to ER with complaint of ulcer to right middle finger x2 weeks. Patient states 2 weeks ago noticed a blister to palmar aspect of right middle finger. Patient states the following day he woke up and blister had popped. Reports area scabbed over and then appeared ulcerated. Denies any purulent discharge or surrounding erythema from area. Denies pain, fever, chills. Patient reports blister to left dorsal hand. He thinks that he may have burned the area. Denies any surrounding erythema or edema. Patient reports couple weeks ago had biopsies of lesions to right forearm and left hand and is now on Efudex cream for the next several weeks. Patient reports history of osteomyelitis in the past. Denies fever/chills, diaphoresis, N/V/D/C, PRITCHARD, dizziness, syncope, vision changes, neck pain, CP, SOB, orthopnea, palpitations, cough, sore throat, choking, otalgia, rhinorrhea, abdominal pain, paresthesias, weakness, extremity weakness, extremity edema, urinary symptoms. In ER pt afebrile, No leukocytosis, normal lactate. Xray: Subtle periarticular lucencies involving the third middle phalangeal head reflect subcortical cysts versus subtle erosions. In ER given vancomycin Admission Exam Per Admitting Provider General: No acute distress, obese Head: normocephalic, atraumatic Eyes: conjunctiva non-injected, anicteric ENT: normal inspection external ears, nose, mucous membranes moist Neck: supple, trachea midline Lungs: clear, no respiratory distress, no wheezing/rhonchi/rales CV: RRR, no pretibial edema Abd: normal BS, soft, non-tender Ext: no cyanosis, no calf tenderness; right hand: Right distal middle finger palmar aspect with approximately 1.5 cm eschar without surrounding edema. No red streaking. No purulent drainage Neuro: A&O x 3, no focal deficits noted, normal affect Skin: warm, dry, left dorsal hand with bullous Principal Diagnosis R finger eschar 2/2 blister Discharge Exam CONSTITUTIONAL: WNWD, vitals stable, generally well-appearing EYES: normal conjunctivae, no scleral icterus ENT: external ear and nose normal RESPIRATORY: clear to auscultation bilaterally, no crackles, rales or wheezes, normal respiratory effort CARDIOVASCULAR: regular rate and rhythm, S1 and 2 heard without murmurs, gallops or rubs, no JVD, no peripheral edema GASTROINTESTINAL: soft, nontender, nondistended, no guarding MUSCULOSKELETAL: strength 5/5 throughout, head is normocephalic and atraumatic, neck supple, normal palpation of chest wall without tenderness SKIN: warm and dry, right middle finger was wrapped with a surgical dressing that was clean, dry and intact. NEUROLOGIC: CN 2-12 grossly intact, no sensory deficit, normal cognition, normal speech, no gross focal deficits. PSYCHIATRIC: alert cooperative and oriented to person, place and time. Discharge Data Allergies Allergy/AdvReac Type Severity Reaction Status Date / Time Penicillins Allergy Severe ANAPHYLAXIS Verified 05/11/21 19:31 Consultations 05/11/21 17:55 ED Decision to Admit Stat 05/11/21 18:20 Consult Nephrology Routine Consult Orthopedic Surgery Routine Procedures Performed digital block with debridement of the eschar on the right middle finger Ordered Studies Laboratory Results WBC 3.20 K/uL (4.8-10.8) L 05/12/21 07:36 RBC 2.99 M/uL (4.7-6.1) L 05/12/21 07:36 Hgb 10.4 g/dL (14.0-18.0) L 05/12/21 07:36 Hct 28.6 % (42-52) L 05/12/21 07:36 MCV 95.7 fL (80-100) 05/12/21 07:36 MCH 34.8 pg (25-34) H 05/12/21 07:36 MCHC 36.4 g/dL (32-36) H 05/12/21 07:36 RDW Std Deviation 43.0 fL (36.4-46.3) 05/12/21 07:36 RDW Coeff of Ira 12.5 % (11.5-14.5) 05/12/21 07:36 Plt Count 93 K/uL (130-400) L 05/12/21 07:36 MPV 9.5 fL (7.4-10.4) 05/12/21 07:36 Immature Gran % (Auto) 0.0 % 05/11/21 15:54 Neut % (Auto) 62.1 % 05/11/21 15:54 Lymph % (Auto) 22.2 % 05/11/21 15:54 [place] % (Auto) 12.9 % 05/11/21 15:54 Eos % (Auto) 2.8 % 05/11/21 15:54 Baso % (Auto) 0.0 % 05/11/21 15:54 Neut # (Auto) 2.02 K/uL (1.4-6.5) 05/11/21 15:54 Lymph # (Auto) 0.72 K/uL (1.2-3.4) L 05/11/21 15:54 Winston # (Auto) 0.42 K/uL (0.11-0.59) 05/11/21 15:54 Eos # (Auto) 0.09 K/uL (0-0.5) 05/11/21 15:54 Baso # (Auto) 0.00 K/uL (0-0.2) 05/11/21 15:54 Immature Gran # (Auto) 0.00 K/uL (0.00-0.02) 05/11/21 15:54 PT 11.2 Seconds (9.0-12.0) 05/11/21 15:54 INR 1.1 (0.9-1.1) 05/11/21 15:54 APTT 25.8 Seconds (21.0-31.0) 05/11/21 15:54 PTT Ratio 1.0 05/11/21 15:54 Sodium 135 mmol/L (136-145) L 05/12/21 07:36 Potassium 4.2 mmol/L (3.5-5.1) 05/12/21 07:36 Chloride 100 mmol/L (98-107) 05/12/21 07:36 Carbon Dioxide 29 mmol/L (21-32) 05/12/21 07:36 Anion Gap 6.0 (3-11) 05/12/21 07:36 BUN 31 mg/dl (7-18) H D 05/12/21 07:36 Creatinine 7.78 mg/dl (0.6-1.4) H* D 05/12/21 07:36 Est Cr Clr Drug Dosing 13.8 ml/min 05/12/21 07:36 Est GFR ( Amer) 8.6 ml/min 05/12/21 07:36 Est GFR (Non-Af Amer) 7.4 ml/min 05/12/21 07:36 BUN/Creatinine Ratio 4.0 (10-20) L 05/12/21 07:36 Glucose 91 mg/dl (70-99) 05/12/21 07:36 POC Glucose 106 mg/dl (70-99) H 05/12/21 11:25 Estimat Average Glucose 120 mg/dl 05/12/21 07:36 Hemoglobin A1c 5.8 % (4.5-5.6) H 05/12/21 07:36 Lactate 1.7 mmol/L (0.4-2.0) 05/11/21 15:54 Calcium 8.7 mg/dl (8.5-10.1) 05/12/21 07:36 Magnesium 2.2 mg/dl (1.8-2.4) 05/11/21 15:54 Total Bilirubin 0.6 mg/dl (0.2-1) 05/11/21 15:54 AST 15 U/L (15-37) 05/11/21 15:54 ALT 22 U/L (12-78) 05/11/21 15:54 Alkaline Phosphatase 125 U/L (45-117) H 05/11/21 15:54 Total Protein 7.9 gm/dl (6.4-8.2) 05/11/21 15:54 Albumin 3.9 gm/dl (3.4-5.0) 05/11/21 15:54 Globulin 4.0 gm/dl (2.5-4.0) 05/11/21 15:54 Albumin/Globulin Ratio 1.0 (0.9-2) 05/11/21 15:54 Procalcitonin 0.53 ng/ml (0-0.5) H 05/11/21 15:52 Urine Color Yellow 05/12/21 05:33 Urine Appearance Clear (Clear) 05/12/21 05:33 Urine pH 8.5 (4.5-7.5) H 05/12/21 05:33 Ur Specific [place] 1.009 (1.000-1.030) 05/12/21 05:33 Urine Protein 2+ (Negative) H 05/12/21 05:33 Urine Glucose (UA) Trace (Negative) H 05/12/21 05:33 Urine Ketones Negative (Negative) 05/12/21 05:33 Urine Blood Negative (Negative) 05/12/21 05:33 Urine Nitrite Negative (Negative) 05/12/21 05:33 Urine Bilirubin Negative (Negative) 05/12/21 05:33 Urine Urobilinogen Negative (Negative) 05/12/21 05:33 Ur Leukocyte Esterase Negative (Negative) 05/12/21 05:33 Urine WBC (Auto) 1-5 /hpf (0-5) 05/12/21 05:33 Urine RBC (Auto) 0-4 /hpf (0-4) 05/12/21 05:33 U Hyaline Cast (Auto) 0 /lpf (0-5) 05/12/21 05:33 U Epithel Cells (Auto) 5-10 /lpf (0-5) H 05/12/21 05:33 Urine Bacteria (Auto) Negative (Negative) 05/12/21 05:33 Urine Sperm Present (None Prsent) A 05/12/21 05:33 COVID-19 Eval Order Covid19 at [facility] 05/11/21 18:47 SARS-CoV-2 (PCR) NEGATIVE (Negative) 05/11/21 18:47 Impressions Chest X-Ray 05/11/21 15:30 XR chest 1V portable CLINICAL HISTORY: SEPSIS COMPARISON STUDY: Chest radiograph May 27, 2020. FINDINGS: The right internal jugular dual lumen catheter has been removed since prior exam. There are median sternotomy wires. Moderate cardiomegaly is unchanged. There is no pneumothorax or pleural effusion. There is no consolidation. There is pulmonary vascular congestion. IMPRESSION: Stable cardiomegaly and pulmonary vascular congestion. ACT 112: Negative or not required by law. Electronically signed by: Abhinav Hopkins M.D. 05/11/2021 3:41 PM Hand X-Ray 05/11/21 15:30 XR hand RT min 3V routine HISTORY: 50 years-old Male eval for osteo acute right hand pain COMPARISON: None TECHNIQUE: 3 views of the right hand FINDINGS: Extensive arterial calcifications. Mild multifocal osteoarthritis. No acute fracture, dislocation or opaque foreign body. Subtle periarticular lucencies are noted involving the third middle phalangeal head. IMPRESSION: 1. Subtle periarticular lucencies involving the third middle phalangeal head reflect subcortical cysts versus subtle erosions. 2. Mild multifocal osteoarthritis without acute fracture. 3. Extensive arterial calcifications. ACT 112: Negative or not required by law. The above report was generated using voice recognition software. It may contain grammatical, syntax or spelling errors. Electronically signed by: Oliverio Coronado M.D. 05/11/2021 3:43 PM Hospital Course (1) Eschar of finger: 50 yo M with multiple medical conditions presents with two weeks of a poorly healing eschar on the right middle finger resulting after a blister popped over this area. He was stable and clinically well-appearing on admission with no pain in his hand. There was no surrounding cellulitis seen, however, x- ray findings were concerning for possible osteomyelitis, questioning erosions. He was placed on broad spectrum antibiotics overnight and was seen by orthopedics the following day. The wound was debrided at the bedside and a deeper level infection was not suspected. He was treated with simple wound care and further antibiotics were not thought to be needed. He was discharged in stable condition with close primary care followup recommended to monitor his wound healing progression. (2) ESRD (end stage renal disease) on dialysis: Total Time Total Time Spent Total Time Spent (In Minutes): 20 Discharge Plan Discharge Items Patient Disposition: Home - Self-Care Reason For Visit: FINGER INFECTION Discharge Diagnosis: superficial finger wound Condition on Discharge: Good Activity: Resume your previous activity Driving/Machine Use: No limitations Weightbearing Comment: right hand no weight on right middle finger Non-emergency contact: Primary Care Provider Call non-emergency contact if: you have any medication questions, your symptoms worsen, your pain is not controlled, your pain is worsening, your pain is unusual for you, your wound has increased redness, your wound has increased drainage and your wound pain has increased Follow-up/Referrals: Graciela Rodriguez DO, FACEP [Physician] - (as outpatient; schedule appt for next week) Dalton Marcelino MD [Primary Care Provider] - Diet: Regular Addtl Attending Provider Instructions: It is recommended that you follow all orthopedic instructions below. Please contact your primary care provider for a follow-up at the wound care center some time this week. It was a pleasure taking care of you! Please call if you have any questions or problems. You can reach a [facility] hospitalist on duty at [facility] 24 hours a day by calling [phone]. Take care of yourself. Dori Bermudez DO [facility] Hospitalist Addtl [employer] Supervisor Provider Instructions: Dressings on right middle finger x 4 days; then can change dressing daily or as needed. Keep wound covered Follow up with Dr. Bautista as needed as outpatient Recommend follow up with wound care for definitive treatment of this area. Regular diet Ice and elevation as needed Allowed for full range of motion of fingers right hand Advance activities as tolerated No need for antibiotics at this time. Pending Studies at Discharge: No Stand-Alone Forms: My [facility] Medications and DC Order Prescriptions: Continued levothyroxine 25 mcg Tablet 25 mcg PO QAM Qty: 0 RF: 0 diphenhydramine HCl [Benadryl] 25 mg Capsule 25 mg PO DAILY PRN (Reason: Allergic Reaction) Qty: 0 RF: 0 sevelamer carbonate [Renvela] 800 mg Tablet 800 - 1,600 mg PO DIRECTED Qty: 0 RF: 0 isosorbide mononitrate 30 mg Tablet Extended Release 24 Hr 30 mg PO QAM Qty: 0 RF: 0 furosemide 80 mg Tablet 80 - 160 mg PO AMPM Qty: 0 RF: 0 tamsulosin 0.4 mg Capsule 0.4 mg PO QAM Qty: 0 RF: 0 Veltassa 8.4 gram Powder In Packet 8.4 g PO Q2D RF: 0 pantoprazole [Protonix] 40 mg Tablet,Delayed Release (Dr/Ec) 40 mg PO QAM RF: 0 lisinopril 40 mg Tablet 40 mg PO QAM RF: 0 carvedilol 25 mg tablet 25 mg PO BID RF: 0 aspirin 81 mg Tablet,Delayed Release (Dr/Ec) 81 mg PO PM RF: 0 acetaminophen [Tylenol Extra Strength] 500 mg Tablet 1,000 mg PO Q6H PRN (Reason: Pain) RF: 0 Auryxia 210 mg iron tablet 210 - 420 mg PO DIRECTED RF: 0 atorvastatin 80 mg tablet 80 mg PO DAILY RF: 0 amlodipine 10 mg tablet 10 mg PO DAILY RF: 0 cinacalcet [Sensipar] 30 mg Tablet 30 mg PO DAILY RF: 0 fluorouracil 5 % cream 1 applic TOPICAL BID RF: 0 Discharge Orders: Discharge Order (Routine); Ordered 05/12/21 Ordered By: Dori Bermudez Admission Data Admit Date/Time: 05/11/21 18:20 Attending Provider: Dori Bermudez Admit Provider: Dori Bermudez Primary Care Provider: Dalton Marcelino Other Providers: Cameron Sumner ; Brett Bautista ; Dori Bermudez Other Interventions: Discharge Summary Assessment (RN) Last Done: 05/12/21 15:36
== END 2021-05-12 16:39 | disposition home or self-care (01) | DRG 579 ==
LOC: ED 12:28 → 2W 18:20

== ENCOUNTER 2021-10-19 14:40 | Inpatient (IN) ==
--- NOTE | 2021-10-19 14:51 | Emergency Department Note ---
History of Present Illness General Chief complaint: Cough Stated complaint: COVID SYMPTOMS, COUGHING Time Seen by Provider: 10/19/21 14:49 History of Present Illness This is a 51-year-old male with a complex past medical history that presents to the emergency department via private vehicle with complaints of "Covid symptoms, coughing". The patient states that this past Friday he developed a dry cough. He notes that it is mostly nonproductive. He states that he feels a heaviness in his lungs. No chest pain. No fevers or chills. No body aches. He notes that he has received a 2 dose series of the COVID-19 vaccine about a year ago. No booster. No close contacts that he is aware of with COVID-19. No history of PE. He does participate in dialysis Friday, Friday and Friday. He notes that he was not fluid overloaded during today's weight assessment. He was able to complete dialysis today. He presents to us today for evaluation of a nagging he describes persistent cough. He states that he has his gag reflex triggered by the cough at times causing him to vomit but otherwise no true vomiting. No pain at the present time. Patient does note a history of OK but this feels completely different. Home Medications Medication Instructions Recorded Confirmed Type levothyroxine 25 mcg tablet 25 mcg PO DAILYBB #0 11/02/15 10/19/21 History diphenhydramine HCl 25 mg capsule 25 mg PO DAILY PRN #0 04/23/16 10/19/21 Hist ory (Benadryl) sevelamer carbonate 800 mg tablet 800 - 1,600 mg PO DIRECTED #0 08/23/16 History (Renvela) isosorbide mononitrate 30 mg 30 mg PO QAM #0 tab 11/09/17 10/19/21 History tablet,extended release 24 hr furosemide 80 mg tablet 80 - 160 mg PO AMPM #0 tab 03/30/18 10/19/21 History tamsulosin 0.4 mg capsule 0.4 mg PO QAM #0 04/25/18 10/19/21 History pantoprazole 40 mg tablet,delayed 40 mg PO QAM 06/16/18 10/19/21 History release (Protonix) carvedilol 25 mg tablet 25 mg PO BID 02/21/20 10/19/21 History lisinopril 40 mg tablet 40 mg PO QAM 02/21/20 10/19/21 History amlodipine 10 mg tablet 10 mg PO QAM 05/11/21 10/19/21 History aspirin 81 mg tablet,delayed 81 mg PO HS 05/11/21 10/19/21 History release atorvastatin 80 mg tablet 80 mg PO QAM 05/11/21 10/19/21 History cinacalcet 30 mg tablet (Sensipar) 30 mg PO HS 05/11/21 10/19/21 History hydralazine 25 mg tablet 25 mg PO BID 08/21/21 10/19/21 History sucroferric oxyhydroxide 500 mg 500 mg PO TIDM 08/21/21 10/19/21 History chewable tablet (Velphoro) Allergies Allergy/AdvReac Type Severity Reaction Status Date / Time Penicillins Allergy Severe ANAPHYLAXIS Verified 10/19/21 16:39 Past Med/Surg History Medical History Anemia due to end stage renal disease CAD (coronary artery disease) s/p CABG in 2013 Congestive heart failure Combined systolic and diastolic, compensated. Echo 2018 showed EF 40-45%. Prior to CABG EF was 30-34%. Diabetes mellitus, type 2 diet controlled Diabetic neuropathy Diabetic retinopathy BOTH EYES OPERATED ON Encounter for pre-operative examination ESRD (end stage renal disease) on dialysis 3xwk, m,w,f at [facility] Follows with dr. roe Hyperlipidemia Hypertension Hypothyroidism Ischemic cardiomyopathy Morbid obesity with BMI of 40.0-44.9, adult Myocardial Infarction NSTEMI 02/2014--FOLLOWS W DR. CAMACHO Osteoarthritis Peripheral neuropathy Thrombocytopenia Chronic. Surgical History Fistula PLACED IN L WRIST H/O eye surgery RT/LT History of cardiac cath 02/2014--NO STENTS History of coronary artery bypass graft QUADRIPLE BYPASS [place] [facility] [place]. History of vascular access device permacath insertion--no longer has Hx of hernia repair abdominal hernia and removed PD catheter due to infection 06/2018 S/P arteriovenous (AV) fistula repair x2--recently in 05/31/2021 @ [facility] [place], prior to that 04/18/20 @ [facility] with Dr. Simoni Family History Mother Family history of diabetes mellitus Family history of reaction to anesthesia VERY GROGGY AFTER 10 HOUR SURGERY Grandfather Family history of diabetes mellitus MATERNAL Family/Other Family hx of colon cancer UNCLE Family history of diabetes mellitus MATERNAL AUNT Brother Family history of diabetes mellitus Social History Smoking Status: Never smoker Second Hand Exposure: Yes (FATHER SMOKED); Hx Alcohol Use: No Hx Substance Use: No Preferred Language: [place] Communication Ability: Effective Visual Impairment: No Limitations Rn Concurrent Review Required: No Beliefs That Will Affect Care: None Current Living Situation: Family Current Living Situation Comment: [facility] current occupational status: disabled Feels Safe at Home: Yes Safety Concerns: Feels Safe At This Time Assistive Devices: None Review of Systems A total of 10 systems reviewed and were otherwise negative Physical Exam Vital Signs Vital Signs - 24 hr 10/19/21 14:43 10/19/21 15:03 10/19/21 16:30 Temperature 36.5 C Temperature Source Skin Pulse Rate 78 Pulse Rate [Apical] 77 Pulse Rhythm [Apical] Regular Respiratory Rate 18 16 Respiratory Effort / Characteristics Non-Labored Respiratory Depth Normal Respiratory Pattern Blood Pressure 151/71 H Blood Pressure [Left Arm] 159/76 H Blood Pressure Mean 97 Blood Pressure Mean [Left Arm] 103 Pulse Oximetry 93 94 88 L Oxygen Delivery Method Room Air Room Air Room Air Oxygen Flow Rate 0 Sepsis Recent Fever Within 48 Hours No Sepsis New/Unexplained Change in Mental Status N/A Sepsis Action Taken by Nursing No Action Required Oxygen Flow Rate - Titration 2 Pulse Oximetry Post Tiitration 94 10/19/21 17:00 10/19/21 17:30 10/19/21 18:00 Temperature Temperature Source Pulse Rate 78 74 74 Pulse Rate [Apical] Pulse Rhythm [Apical] Respiratory Rate 20 16 16 Respiratory Effort / Characteristics Respiratory Depth Respiratory Pattern Blood Pressure 169/84 H Blood Pressure [Left Arm] Blood Pressure Mean 112 Blood Pressure Mean [Left Arm] Pulse Oximetry 96 97 Oxygen Delivery Method Nasal Cannula Oxygen Flow Rate 2 Sepsis Recent Fever Within 48 Hours Sepsis New/Unexplained Change in Mental Status Sepsis Action Taken by Nursing Oxygen Flow Rate - Titration Pulse Oximetry Post Tiitration 10/19/21 18:30 10/19/21 19:00 10/19/21 19:30 Temperature 37.1 C Temperature Source Oral Pulse Rate 74 76 74 Pulse Rate [Apical] 75 Pulse Rhythm [Apical] Respiratory Rate 16 16 16 Respiratory Effort / Characteristics Non-Labored Respiratory Depth Normal Respiratory Pattern Regular Blood Pressure 163/77 H Blood Pressure [Left Arm] 170/84 H Blood Pressure Mean 105 Blood Pressure Mean [Left Arm] 112 Pulse Oximetry 99 94 96 Oxygen Delivery Method Nasal Cannula Oxygen Flow Rate 2 Sepsis Recent Fever Within 48 Hours Sepsis New/Unexplained Change in Mental Status Sepsis Action Taken by Nursing Oxygen Flow Rate - Titration Pulse Oximetry Post Tiitration VITAL SIGNS - Vital signs and nursing notes were reviewed. Stable and afebrile. GENERAL -51-year-old male appearing his stated age who is in no acute distress. Communicates well with provider and answers questions appropriately. SKIN - Without rashes. No meningeal or petechial rash. Bandage overlying the right bicep region from recent dialysis. HEAD - NC/AT. EYES - Sclera anicteric. EARS - No deformities of external structures noted on gross examination bilaterally. NOSE - Midline and without cyanosis. No epistaxis or purulent drainage noted. MOUTH/OROPHARYNX - Without perioral cyanosis. No drooling, stridor, trismus, wheezing or tripoding. Normal phonation. NECK - Neck with FROM. No nuchal rigidity. LUNGS - Chest wall symmetric without accessory muscle use, intercostals retractions, or central cyanosis. Normal vesicular breath sounds CTA B/L. No wheezes, rales, or rhonchi appreciated. CARDIAC - RRR ABDOMEN - Abdominal contour normal without pulsations or visible masses. BS normoactive all four quadrants. No tenderness, palpable masses, hepatosplenomegaly, or ascites noted. EXTREMITIES - No clubbing or peripheral cyanosis. +5/5 strength noted in UE/LE bilaterally. NEUROLOGIC - Cranial nerves II through XII grossly intact. PSYCH - A&Ox3 and cooperates fully with examiner. Pt is very pleasant and interacts well with examiner. Course Administered Medications Amlodipine Besylate (Amlodipine Besylate 5 Mg Tab) [facility] [place]: 11/19/21 08:59 Last Admin: 10/20/21 08:25 Dose: 10 mg Documented by: [id number] Aspirin (Aspirin 81 Mg Ectab) 81 mg PO HS [facility] Stop: 11/18/21 20:59 Last Admin: 10/19/21 20:32 Dose: 81 mg Documented by: [id number] Atorvastatin Calcium (Atorvastatin 40 Mg Tab) 80 mg PO QAM [facility] Stop: 11/19/21 08:59 Last Admin: 10/20/21 08:25 Dose: 80 mg Documented by: [id number] Benzonatate (Benzonatate 100 Mg Capsule) 100 mg PO TID [facility] Stop: 11/18/21 20:59 Last Admin: 10/20/21 08:24 Dose: 100 mg Documented by: [id number] Admin: 10/19/21 20:32 Dose: 100 mg Documented by: [id number] Carvedilol (Carvedilol 25 Mg Tab) 25 mg PO BID [facility] Stop: 11/18/21 20:59 Last Admin: 10/20/21 08:26 Dose: 25 mg Documented by: [id number] Admin: 10/19/21 20:32 Dose: 25 mg Documented by: [id number] Cinacalcet (Cinacalcet Hcl 30 Mg Tab) 30 mg PO HS [facility] Stop: 11/18/21 20:59 Last Admin: 10/19/21 20:32 Dose: 30 mg Documented by: [id number] Furosemide (Furosemide 80 Mg Tab) 80 mg PO QPM [facility] Stop: 11/18/21 20:59 Last Admin: 10/19/21 21:28 Dose: 80 mg Documented by: [id number] Furosemide (Furosemide 80 Mg Tab) 160 mg PO DAILY [facility] Stop: 11/19/21 08:59 Last Admin: 10/20/21 08:26 Dose: 160 mg Documented by: [id number] Guaifenesin/Codeine Phosphate (Guaifenesin/Codeine 200mg/20mg 10ml Udc) 10 ml PO Q6H PRN PRN Reason: Cough Stop: 11/18/21 19:47 Last Admin: 10/19/21 20:31 Dose: 10 ml Documented by: [id number] Hydralazine HCl (Hydralazine Hcl 25 Mg Tab) 25 mg PO BID [facility] Stop: 11/18/21 20:59 Last Admin: 10/20/21 08:25 Dose: 25 mg Documented by: [id number] Admin: 10/19/21 20:33 Dose: 25 mg Documented by: [id number] Dexamethasone 6 mg/ Syringe 1.5 mls @ 1 mls/min IV DAILY [facility] Stop: 11/18/21 18:29 Last Admin: 10/20/21 08:24 Dose: 1 mls/min Documented by: [id number] Admin: 10/19/21 20:32 Dose: 1 mls/min Documented by: [id number] Heparin Sodium/Dextrose (Heparin Sodium/Dextrose) 25,000 units in 500 mls @ 30 mls/hr IV .[id number] HALI; Protocol Stop: 11/18/21 21:59 Last Titration: 10/20/21 07:08 Dose: 1,500 units/hr, 30 mls/hr Documented by: [id number] Cosigned by: [id number] Admin: 10/19/21 23:28 Dose: 1,500 units/hr, 30 mls/hr Documented by: [id number] Cosigned by: [id number] Insulin Aspart (Insulin Aspart Per Unit) 0 units SC ACHS [facility] Stop: 11/19/21 07:29 Last Admin: 10/20/21 08:24 Dose: 1 units Documented by: [id number] Cosigned by: [id number] Isosorbide Mononitrate (Isosorbide Borden Extended Rel 30 Mg Tabcr) [facility] [place]: 11/19/21 08:59 Last Admin: 10/20/21 08:25 Dose: 30 mg Documented by: [id number] Levothyroxine Sodium (Levothyroxine Sodium 25 Mcg Tablet) [facility] Stop: 11/19/21 06:29 Last Admin: 10/20/21 07:13 Dose: 25 mcg Documented by: [id number] Lisinopril (Lisinopril 40 Mg Tab) 40 mg PO QAM [facility] Stop: 11/19/21 08:59 Last Admin: 10/20/21 08:25 Dose: 40 mg Documented by: [id number] Pantoprazole Sodium (Pantoprazole 40 Mg Tab) [facility] [place]: 11/19/21 08:59 Last Admin: 10/20/21 08:25 Dose: 40 mg Documented by: [id number] Sevelamer HCl (Sevelamer Hcl 800 Mg Tablet) 1,600 mg PO TIDM [facility] Stop: 11/18/21 19:47 Last Admin: 10/20/21 08:26 Dose: 1,600 mg Documented by: [id number] Admin: 10/19/21 20:51 Dose: Not Given Documented by: [id number] Tamsulosin HCl (Tamsulosin Hcl 0.4 Mg Cap) 0.4 mg PO QAM [facility] Stop: 11/19/21 08:59 Last Admin: 10/20/21 08:24 Dose: 0.4 mg Documented by: [id number] Discontinued Medications Dexamethasone (Dexamethasone Sod Inj 4 Mg/Ml Vial) Confirm Administered Dose 8 mg .ROUTE .STK-MED ONE Stop: 10/19/21 20:19 Last Admin: 10/19/21 20:32 Dose: Not Given Documented by: [id number] Guaifenesin/Codeine Phosphate (Guaifenesin/Codeine 100mg/10mg 5ml Udc) 10 ml PO NOW STA Stop: 10/19/21 18:05 Last Admin: 10/19/21 20:50 Dose: Not Given Documented by: [id number] Heparin Sodium/Dextrose (Heparin Iv Adult Wt-Based Standard *No* Bolus Protocol) 1 ea IV Q15M [facility]; Protocol Stop: 10/19/21 23:26 Last Admin: 10/19/21 23:38 Dose: Not Given Documented by: [id number] Admin: 10/19/21 23:38 Dose: Not Given Documented by: [id number] Admin: 10/19/21 23:38 Dose: Not Given Documented by: [id number] Admin: 10/19/21 23:36 Dose: Not Given Documented by: [id number] Admin: 10/19/21 23:36 Dose: Not Given Documented by: [id number] Admin: 10/19/21 23:35 Dose: Not Given Documented by: [id number] Admin: 10/19/21 23:35 Dose: Not Given Documented by: [id number] Heparin Sodium/Dextrose (Heparin 97216 Unit/500 Ml D5w) Confirm Administered Dose 25,000 units IV .STK-MED ONE Stop: 10/19/21 23:18 Last Admin: 10/19/21 23:29 Dose: Not Given Documented by: [id number] Medical Decision Making Laboratory Data Result diagrams: 10/20/21 03:22 10/20/21 03:22 Lab Results 10/19/21 10/19/21 10/19/21 Range/Units 15:10 15:10 15:10 WBC 1.61 L (4.8-10.8) K/uL RBC 3.07 L (4.7-6.1) M/uL Hgb 10.1 L (14.0-18.0) g/dL Hct 29.3 L (42-52) % MCV 95.4 (80-100) fL MCH 32.9 (25-34) pg MCHC 34.5 (32-36) g/dL RDW Std Deviation 44.6 (36.4-46.3) fL RDW Coeff of Ira 12.9 (11.5-14.5) % Plt Count 77 L (130-400) K/uL MPV 10.2 (7.4-10.4) fL Immature Gran % (Auto) 0.0 % Neut % (Auto) 55.9 % Lymph % (Auto) 21.7 % Borden % (Auto) 19.3 % Eos % (Auto) 3.1 % Baso % (Auto) 0.0 % Neut # (Auto) 0.90 L* (1.4-6.5) K/uL Lymph # (Auto) 0.35 L (1.2-3.4) K/uL Borden # (Auto) 0.31 (0.11-0.59) K/uL Eos # (Auto) 0.05 (0-0.5) K/uL Baso # (Auto) 0.00 (0-0.2) K/uL Immature Gran # (Auto) 0.00 (0.00-0.02) K/uL Platelet Estimate Decreased L (Normal) Polychromasia 1+ PT 11.6 (9.0-12.0) Seconds INR 1.2 H (0.9-1.1) APTT 30.1 (21.0-31.0) Seconds PTT Ratio 1.1 Sodium 133 L (136-145) mmol/L Potassium 3.5 (3.5-5.1) mmol/L Chloride 94 L (98-107) mmol/L Carbon Dioxide 32 (21-32) mmol/L Anion Gap 7.0 (3-11) BUN 26 H (7-18) mg/dl Creatinine 6.96 H* (0.6-1.4) mg/dl Est Cr Clr Drug Dosing 15.1 ml/min Est GFR ( Amer) 9.8 ml/min Est GFR (Non-Af Amer) 8.4 ml/min BUN/Creatinine Ratio 3.7 L (10-20) Glucose 91 (70-99) mg/dl Calcium 8.7 (8.5-10.1) mg/dl Total Bilirubin 1.1 H (0.2-1) mg/dl AST 29 (15-37) U/L ALT 22 (12-78) Alkaline Phosphatase 77 (45-117) U/L Troponin I 0.410 H* (0-0.045) ng/ml Total Protein 7.9 (6.4-8.2) gm/dl Albumin 3.8 (3.4-5.0) gm/dl Globulin 4.1 H (2.5-4.0) gm/dl Albumin/Globulin Ratio 0.9 (0.9-2) Procalcitonin (0-0.5) ng/ml Adenovirus (PCR) (NotDetected) B. pertussis DNA (PCR) (NotDetected) B.parapertussis DNA PCR (NotDetected) C. pneumoniae DNA (PCR) (NotDetected) Coronavirus OC43 (PCR) (NotDetected) Coronavirus HKU1 (PCR) (NotDetected) Coronavirus 229E (PCR) (NotDetected) SARS-CoV-2 (PCR) (NotDetected) Coronavirus NL63 (PCR) (NotDetected) Human Metapneumovir PCR (NotDetected) Influenza Type A (PCR) (NotDetected) Influenza Type B (PCR) (NotDetected) M. pneumoniae (PCR) (NotDetected) Parainfluenza 1 (PCR) (NotDetected) Parainfluenza 2 (PCR) (NotDetected) Parainfluenza 3 (PCR) (NotDetected) Parainfluenza 4 (PCR) (NotDetected) RSV (PCR) (NotDetected) Entero/Rhino (PCR) (NotDetected) 10/19/21 10/19/21 10/19/21 Range/Units 15:10 15:25 20:40 WBC (4.8-10.8) K/uL RBC (4.7-6.1) M/uL Hgb (14.0-18.0) g/dL Hct (42-52) % MCV (80-100) fL MCH (25-34) pg MCHC (32-36) g/dL RDW Std Deviation (36.4-46.3) fL RDW Coeff of Ira (11.5-14.5) % Plt Count (130-400) K/uL MPV (7.4-10.4) fL Immature Gran % (Auto) % Neut % (Auto) % Lymph % (Auto) % Borden % (Auto) % Eos % (Auto) % Baso % (Auto) % Neut # (Auto) (1.4-6.5) K/uL Lymph # (Auto) (1.2-3.4) K/uL Borden # (Auto) (0.11-0.59) K/uL Eos # (Auto) (0-0.5) K/uL Baso # (Auto) (0-0.2) K/uL Immature Gran # (Auto) (0.00-0.02) K/uL Platelet Estimate (Normal) Polychromasia PT (9.0-12.0) Seconds INR (0.9-1.1) APTT (21.0-31.0) Seconds PTT Ratio Sodium (136-145) mmol/L Potassium (3.5-5.1) mmol/L Chloride (98-107) mmol/L Carbon Dioxide (21-32) mmol/L Anion Gap (3-11) BUN (7-18) mg/dl Creatinine (0.6-1.4) mg/dl Est Cr Clr Drug Dosing ml/min Est GFR ( Amer) ml/min Est GFR (Non-Af Amer) ml/min BUN/Creatinine Ratio (10-20) Glucose (70-99) mg/dl Calcium (8.5-10.1) mg/dl Total Bilirubin (0.2-1) mg/dl AST (15-37) U/L ALT (12-78) Alkaline Phosphatase (45-117) U/L Troponin I 1.540 H* (0-0.045) ng/ml Total Protein (6.4-8.2) gm/dl Albumin (3.4-5.0) gm/dl Globulin (2.5-4.0) gm/dl Albumin/Globulin Ratio (0.9-2) Procalcitonin 0.95 H (0-0.5) ng/ml Adenovirus (PCR) Not Detected (NotDetected) B. pertussis DNA (PCR) Not Detected (NotDetected) B.parapertussis DNA PCR Not Detected (NotDetected) C. pneumoniae DNA (PCR) Not Detected (NotDetected) Coronavirus OC43 (PCR) Not Detected (NotDetected) Coronavirus HKU1 (PCR) Not Detected (NotDetected) Coronavirus 229E (PCR) Not Detected (NotDetected) SARS-CoV-2 (PCR) DETECTED A* (NotDetected) Coronavirus NL63 (PCR) Not Detected (NotDetected) Human Metapneumovir PCR Not Detected (NotDetected) Influenza Type A (PCR) Not Detected (NotDetected) Influenza Type B (PCR) Not Detected (NotDetected) M. pneumoniae (PCR) Not Detected (NotDetected) Parainfluenza 1 (PCR) Not Detected (NotDetected) Parainfluenza 2 (PCR) Not Detected (NotDetected) Parainfluenza 3 (PCR) Not Detected (NotDetected) Parainfluenza 4 (PCR) Not Detected (NotDetected) RSV (PCR) Not Detected (NotDetected) Entero/Rhino (PCR) Not Detected (NotDetected) MDM Narrative Patient was seen and evaluated as above in room C01. Review was performed of nursing notes and vital signs. I did review pertinent previous visits and patient history. After obtaining a thorough history and physical examination the above work up was performed. Patient has a complex and extensive past medical history. At this present time he appears well. Vital signs stable. He has had a nonproductive cough over the past couple days. No chest pain. No shortness of breath. No drooling, stridor, trismus, wheezing or tripoding. He is speaking in full sentences. He is resting comfortably in the examination bed upon assessment. Options of care were discussed with the patient. IV access was established and labs were drawn. EKG was obtained. This reveals normal sinus rhythm at a rate of 77 bpm. QTc 473. QRS 96. This was compared EKG of August 16, 2021 and no significant change was found. Labs here reveal leukopenia. Neutropenia noted. These are felt to be secondary to the virus. Anemia stable to previous. Metabolic panel consistent with the patient's end-stage renal disease state. Troponin mildly elevated. He has no chest pain. Covid test positive. This does fit with the patient's symptoms. Patient became hypoxic around 88 and was placed on supplemental oxygen. He clinically appears well. I do believe that further evaluation and management the inpatient setting was ordered. I did obtain a repeat EKG as the first EKG had some poor baseline. This revealed normal sinus rhythm at a rate of 73 bpm. QTc 495. QRS 100. No ST elevation on this tracing. Case discussed with the attending physician as well as the hospitalist. I do believe that further evaluation and management in the inpatient setting is warranted. Patient amenable to plan of care. At this time I believe that ACS, PE and dissection are much less likely noting his clinical presentation and work-up here. Case was discussed with the attending physician. An order was placed for continuous cardiac monitoring. The monitor shows a rate of 64 with sinus rhythm. GCS: 15 In the evaluation and treatment of this patient the following differential diagnoses were entertained: Pneumonia, dissection, OK, PE, ACS, among others. Impression & Plan COVID-19 virus infection, Hypoxia, Neutropenia, Elevated troponin, Cough Discharge Plan Visit Data Chief Complaint: Cough Stated Complaint: COVID SYMPTOMS, COUGHING ED Provider: Marisol Toribio ED Midlevel Provider: Rey Oliver Discharge Problem: COVID-19 virus infection, Hypoxia, Neutropenia, Elevated troponin, Cough Patient Disposition: Admitted As Inpatient Condition: Good Discharge Instructions Interventions: ED Discharge Assessment Last Done: 10/19/21 19:46
[2021-10-19 15:23] LABS: Hematocrit (blood only) 29.3 % (42-52); Hemoglobin 10.1 g/dL (14.0-18.0); Mean Corpuscular Hemoglobin 32.9 pg (25-34); Mean Corpuscular Hgb Conc 34.5 g/dL (32-36); Mean Corpuscular Volume 95.4 fL (80-100); RDW Coefficient of Variation 12.9 % (11.5-14.5); RDW Standard Deviation 44.6 fL (36.4-46.3); Red Blood Count 3.07 M/uL (4.7-6.1); White Blood Count 1.61 K/uL (4.8-10.8)
[2021-10-19 15:33] LABS: INR 1.2 (0.9-1.1); Partial Thromboplastin Ratio 1.1; Partial Thromboplastin Time 30.1 Seconds (21.0-31.0); Prothrombin Time 11.6 Seconds (9.0-12.0)
--- NOTE | 2021-10-19 15:43 | XRay Report ---
XR chest 1V portable CLINICAL HISTORY: cough TECHNIQUE: Single frontal radiograph of the chest was obtained. Comparison: Comparison is made to chest one view 08/16/2021 FINDINGS: No lines and tubes are seen. Cardiomegaly is noted. There is prominence and cephalization of the vasc ulature with Sheila B lines seen. No evidence of pleural effusion or pneumothorax. IMPRESSION: Moderate pulmonary edema. Stable cardiomegaly. ACT 112: Negative or not required by law. Electronically signed by: Moses Eason M.D. 10/19/2021 3:42 PM
[2021-10-19 15:52] LABS: Albumin Globulin Ratio 0.9 (0.9-2); Albumin Level 3.8 gm/dl (3.4-5.0); BUN Creatinine Ratio 3.7 (10-20); Bilirubin,Total 1.1 mg/dl (0.2-1); Calcium 8.7 mg/dl (8.5-10.1); Creatinine Clr Calc Pharmacy 15.1 ml/min; Est GFR (African American) 9.8 ml/min; Est GFR (Non-African American) 8.4 ml/min; Globulin 4.1 gm/dl (2.5-4.0); Potassium 3.5 mmol/L (3.5-5.1); Total Protein 7.9 gm/dl (6.4-8.2)
[2021-10-19 15:53] LABS: Mean Platelet Volume 10.2 fL (7.4-10.4); Platelet Count 77 K/uL (130-400)
[2021-10-19 15:55] LABS: Eosinophils # (auto) 0.05 K/uL (0-0.5); Eosinophils % (auto) 3.1 %; Lymphocytes # (auto) 0.35 K/uL (1.2-3.4); Lymphocytes % (auto) 21.7 %; Monocytes # (auto) 0.31 K/uL (0.11-0.59); Monocytes % (auto) 19.3 %; Neutrophils % (auto) 55.9 %; Platelet Estimate Decreased (Normal); Polychromasia 1+
[2021-10-19 16:24] LABS: Adenovirus PCR Not Detected (NotDetected); Bordetella parapertussis PCR Not Detected (NotDetected); Bordetella pertussis PCR Not Detected (NotDetected); Chlamydia pneumoniae PCR Not Detected (NotDetected); Coronavirus 229E PCR Not Detected (NotDetected); Coronavirus HKU1 PCR Not Detected (NotDetected); Coronavirus NL63 PCR Not Detected (NotDetected); Coronavirus OC43PCR Not Detected (NotDetected); Human Metapneumovirus PCR Not Detected (NotDetected); Influenza A PCR Not Detected (NotDetected); Influenza B PCR Not Detected (NotDetected); Mycoplasma pneumoniae PCR Not Detected (NotDetected); Parainfluenza Virus 1 PCR Not Detected (NotDetected); Parainfluenza Virus 2 PCR Not Detected (NotDetected); Parainfluenza Virus 3 PCR Not Detected (NotDetected); Parainfluenza Virus 4 PCR Not Detected (NotDetected); Respiratory Syncytial VirusPCR Not Detected (NotDetected); Rhinovirus/Enterovirus PCR Not Detected (NotDetected)
[2021-10-19 16:30] LABS: Coronavirus CoV-2 (COVID19)PCR DETECTED (NotDetected)
--- NOTE | 2021-10-19 17:35 | History & Physical Report ---
Date of Service October 19, 2021 Assessment & Plan (1) Hypoxia: Plan: Secondary to COVID 19 infection, no pneumonia present on chest x-ray. Repeat chest x-ray in a.m. Trend procalcitonin but suspect procalcitonin elevated secondary to renal disease. (2) COVID-19 virus infection: Plan: Remdesivir contraindicated in setting of ESRD. Continue dexamethasone daily. Continue supportive care care efforts including antitussive efforts such as scheduled benzonatate and as needed Robitussin-AC. (3) Neutropenia: Plan: Likely related to viral infection. Will be expected to trend up as patient improves clinically. Trend CBC. (4) Elevated troponin: Plan: Patient has ESRD, a chronic history of heart disease and now a COVID-19 infection. ACS considered less likely. Trend enzymes overnight. Notably patient has no chest pain. (5) ESRD on dialysis: Plan: Completed his Friday session today. Consulted nephro. Patient is on a Friday schedule. Continue sevelamer and Sensipar. He is also on an additional phosphate binder that is not on formulary. Encouraged to bring this in from home. (6) Diabetes mellitus, type II: Plan: Last A1c is 5.8 reflecting good control. He reports being a diet controlled diabetic. Will order glucose checks with correction factor due to ongoing steroids. Escalate insulin needs if steroid induced hyperglycemia presents. (7) Hypothyroidism: Plan: Chronic, stable, continue levothyroxine per home management (8) Hypertension: Plan: Slightly elevated this evening which may be related to steroid administration. Continue home regimen and hydralazine as needed. (9) Hx of CABG: (10) Anemia due to end stage renal disease: Plan: Chronic, stable at his baseline. Continue to monitor. (11) DVT prophylaxis: Plan: Heparin drip Full code Disposition-pending resolution of hypoxia and clinical improvement from a COVID standpoint Dori Bermudez DO [facility] Hospitalist History of Present Illness Chief Complaint: SOB, cough Primary Care Provider: Dalton Marcelino MD 51 yo M with multiple medical problems started having symptoms a few days ago including cough, SOB, difficulty sleeping, post-tussive coughing, no fevers but had chills today at dialysis, no diarrhea, no abdominal pain, no chest pain. Came to the ER from dialysis session today after his brother took the ambulance to the hospital from dialysis, also. Brother is covid positive, and they live together. Allergies Allergy/AdvReac Type Severity Reaction Status Date / Time Penicillins Allergy Severe ANAPHYLAXIS Verified 10/19/21 16:39 Home Medications Medication Instructions Recorded Confirmed Type levothyroxine 25 mcg tablet 25 mcg PO DAILYBB #0 11/02/15 10/19/21 History diphenhydramine HCl 25 mg capsule 25 mg PO DAILY PRN #0 04/23/16 10/19/21 History (Benadryl) sevelamer carbonate 800 mg tablet 800 - 1,600 mg PO DIRECTED #0 08/23/16 10/19/21 History (Renvela) isosorbide mononitrate 30 mg 30 mg PO QAM #0 tab 11/09/17 10/19/21 History tablet,extended release 24 hr furosemide 80 mg tablet 80 - 160 mg PO AMPM #0 tab 03/30/18 10/19/21 History tamsulosin 0.4 mg capsule 0.4 mg PO QAM #0 04/25/18 10/19/21 History pantoprazole 40 mg tablet,delayed 40 mg PO QAM 06/16/18 10/19/21 History release (Protonix) carvedilol 25 mg tablet 25 mg PO BID 02/21/20 10/19/21 History lisinopril 40 mg tablet 40 mg PO QAM 02/21/20 10/19/21 History amlodipine 10 mg tablet 10 mg PO QAM 05/11/21 10/19/21 History aspirin 81 mg tablet,delayed 81 mg PO HS 05/11/21 10/19/21 History release atorvastatin 80 mg tablet 80 mg PO QAM 05/11/21 10/19/21 History cinacalcet 30 mg tablet (Sensipar) 30 mg PO HS 05/11/21 10/19/21 History hydralazine 25 mg tablet 25 mg PO BID 08/21/21 10/19/21 History sucroferric oxyhydroxide 500 mg 500 mg PO TIDM 08/21/21 10/19/21 History chewable tablet (Velphoro) Past Med/Surg History Medical History Anemia due to end stage renal disease CAD (coronary artery disease) s/p CABG in 2013 Congestive heart failure Combined systolic and diastolic, compensated. Echo 2018 showed EF 40-45%. Prior to CABG EF was 30-34%. Diabetes mellitus, type 2 diet controlled Diabetic neuropathy Diabetic retinopathy BOTH EYES OPERATED ON Encounter for pre-operative examination ESRD (end stage renal disease) on dialysis 3xwk, m,w,f at [facility] Follows with dr. roe Hyperlipidemia Hypertension Hypothyroidism Ischemic cardiomyopathy Morbid obesity with BMI of 40.0-44.9, adult Myocardial Infarction NSTEMI 02/2014--FOLLOWS W DR. CAMACHO Osteoarthritis Peripheral neuropathy Thrombocytopenia Chronic. Surgical History Fistula PLACED IN L WRIST H/O eye surgery RT/LT History of cardiac cath 02/2014--NO STENTS History of coronary artery bypass graft QUADRIPLE BYPASS @ [facility] 02/2014. History of vascular access device permacath insertion--no longer has Hx of hernia repair abdominal hernia and removed PD catheter due to infection 06/2018 S/P arteriovenous (AV) fistula repair x2--recently in 05/31/2021 @ [facility], prior to that 04/18/20 @ [facility] with Dr. 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 Physical Exam Physical Exam: CONSTITUTIONAL: WNWD, vitals as above, generally well- appearing, NAD, no conversational dyspnea. EYES: normal conjunctivae, no scleral icterus ENT: external ear and nose normal, MMM NECK: trachea midline RESPIRATORY: clear to auscultation bilaterally, no crackles, rales or wheezes, normal respiratory effort CARDIOVASCULAR: regular rate and rhythm, S1 and 2 heard without murmurs, antoine ps or rubs, no JVD, no peripheral edema GASTROINTESTINAL: soft, nontender, ND, no guarding MUSCULOSKELETAL: strength 5/5 throughout, head is normocephalic and atraumatic, neck supple, normal palpation of chest wall without tenderness SKIN: warm and dry, palpable thrill in fistula RUE NEUROLOGIC: CN 2-12 grossly intact, no sensory deficit, normal cognition, normal speech, no tremor, no gross focal deficits. PSYCHIATRIC: alert cooperative and oriented to person, place and time. Results & Data Results & Data ([facility]) Vital Signs (Past 12 Hours) Vital Signs Temp Pulse Pulse Resp BP BP Pulse Ox 10/19/21 17:00 78 20 169/84 H 96 10/19/21 16:30 88 L 10/19/21 15:03 77 16 159/76 H 94 10/19/21 14:43 36.5 C 78 18 151/71 H 93 Laboratory Results Short CBC 10/19/21 Range/Units 15:10 WBC 1.61 L (4.8-10.8) K/uL Hgb 10.1 L (14.0-18.0) g/dL Hct 29.3 L (42-52) % Plt Count 77 L (130-400) K/uL BMP 10/19/21 15:10 Sodium 133 L Potassium 3.5 Chloride 94 L Carbon Dioxide 32 BUN 26 H Creatinine 6.96 H* Glucose 91 Calcium 8.7 Cardiac Enzymes 10/19/21 Range/Units 15:10 Troponin I 0.410 H* (0-0.045) ng/ml Liver Function 10/19/21 Range/Units 15:10 Total Bilirubin 1.1 H (0.2-1) mg/dl AST 29 (15-37) U/L ALT 22 (12-78) Alkaline Phosphatase 77 (45-117) U/L Albumin 3.8 (3.4-5.0) gm/dl Diagnostic Findings Chest X-Ray 10/19/21 14:54 XR chest 1V portable CLINICAL HISTORY: cough TECHNIQUE: Single frontal radiograph of the chest was obtained. Comparison: Comparison is made to chest one view 08/16/2021 FINDINGS: No lines and tubes are seen. Cardiomegaly is noted. There is prominence and cephalization of the vasculature with Sheila B lines seen. No evidence of pleural effusion or pneumothorax. IMPRESSION: Moderate pulmonary edema. Stable cardiomegaly. ACT 112: Negative or not required by law. Electronically signed by: Moses Eason M.D. 10/19/2021 3:42 PM Code Status & VTE Plan VTE Prophylaxis Plan VTE Prophylaxis will be ordered: Yes
[2021-10-19] MEDS ORDERED: guaiFENesin/CODEINE 100MG/10MG 5ML UDC PO STA (18:04)
[2021-10-19] MEDS ORDERED: ONDANSETRON INJ 2 MG/ML 2 ML VIAL IV PRN (19:48)
[2021-10-19] MEDS ORDERED: POLYETHYLENE (MIRALAX) 17 GM PACK PO PRN (19:48)
[2021-10-19] MEDS ORDERED: ACETAMINOPHEN 325 MG TAB PO PRN (19:48)
[2021-10-19] MEDS ORDERED: SEVELAMER HCL 800 MG TABLET PO PRN (20:09)
[2021-10-19] MEDS ORDERED: DEXAMETHASONE SOD INJ 4 MG/ML VIAL ONE (20:18)
[2021-10-19] MEDS: dexAMETHasone 6 MG in SYRINGE 0 ML IV SCH (20:32)
[2021-10-19] MEDS: carvediloL 25 MG TAB PO SCH (20:32)
[2021-10-19] MEDS: ASPIRIN 81 MG ECTAB PO SCH (20:32)
[2021-10-19] MEDS: CINACALCET HCL 30 MG TAB PO SCH (20:32)
[2021-10-19] MEDS: BENZONATATE 100 MG CAPSULE PO SCH (20:32)
[2021-10-19] MEDS: hydrALAZINE HCL 25 MG TAB PO SCH (20:33)
[2021-10-19] MEDS: SEVELAMER HCL 800 MG TABLET PO SCH (20:51)
[2021-10-19 21:15] LABS: Troponin I 0.41 ng/ml (0-0.045)
[2021-10-19] MEDS: FUROSEMIDE 80 MG TAB PO SCH (21:28)
[2021-10-19] MEDS ORDERED: GLUCOSE 10 TABS/TUBE PO PRN (21:37)
[2021-10-19] MEDS ORDERED: GLUCAGON FOR INJ 1 MG VIAL SQ PRN (21:37)
[2021-10-19] MEDS ORDERED: CARBOHYDRATES FOR HYPOGLYCEMIA PO PRN (21:37)
[2021-10-19] MEDS ORDERED: GLUCOSE 40% GEL 15 GM TUBE PO PRN (21:37)
[2021-10-19] MEDS ORDERED: DEXTROSE 50% 50 ML SYRINGE IV PRN (21:37)
[2021-10-19] MEDS ORDERED: hydrALAZINE HCL 20 MG/ML VIAL IV PRN (21:39)
[2021-10-19] MEDS ORDERED: HEPARIN 25000 UNIT/500 ML D5W IV ONE (23:17)
[2021-10-19] MEDS: HEPARIN SODIUM/DEXTROSE 25,000 UNITS/500 ML BAG IV SCH (23:28)
[2021-10-19] MEDS: Heparin IV Adult Wt-Based Standard *NO* Bolus Protocol IV SCH ×3 (23:35→23:38)
[2021-10-20 06:25] LABS: Hematocrit (blood only) 29.4 % (42-52); Hemoglobin 10.1 g/dL (14.0-18.0); Mean Corpuscular Hemoglobin 33.2 pg (25-34); Mean Corpuscular Hgb Conc 34.4 g/dL (32-36); Mean Corpuscular Volume 96.7 fL (80-100); RDW Standard Deviation 45.1 fL (36.4-46.3); Red Blood Count 3.04 M/uL (4.7-6.1); White Blood Count 1.43 K/uL (4.8-10.8)
[2021-10-20 06:41] LABS: Partial Thromboplastin Ratio 2.5
[2021-10-20 06:45] LABS: BUN Creatinine Ratio 4.1 (10-20); C Reactive Protein 2.58 mg/dl (0-0.29); Calcium 7.6 mg/dl (8.5-10.1); Creatinine Clr Calc Pharmacy 12.7 ml/min; Est GFR (African American) 7.7 ml/min; Est GFR (Non-African American) 6.7 ml/min; Potassium 3.6 mmol/L (3.5-5.1); Thyroid Stimulating Hormone 1.05 uIu/ml (0.300-4.500)
[2021-10-20 06:52] LABS: Partial Thromboplastin Time 65.8 Seconds (21.0-31.0)
[2021-10-20 06:58] LABS: Mean Platelet Volume 10.7 fL (7.4-10.4); Platelet Count 83 K/uL (130-400)
[2021-10-20] MEDS: LEVOTHYROXINE SODIUM 25 MCG TABLET PO SCH (07:13)
[2021-10-20] MEDS: TAMSULOSIN HCL 0.4 MG CAP PO SCH (08:24)
[2021-10-20] MEDS: INSULIN ASPART PER UNIT SC SCH ×4 (08:24→22:20)
[2021-10-20] MEDS: dexAMETHasone 6 MG in SYRINGE 0 ML IV SCH (08:24)
[2021-10-20] MEDS: BENZONATATE 100 MG CAPSULE PO SCH ×3 (08:24→23:04)
[2021-10-20] MEDS: hydrALAZINE HCL 25 MG TAB PO SCH ×2 (08:25→22:10)
[2021-10-20] MEDS: ISOSORBIDE MONO EXTENDED REL 30 MG TABCR PO SCH (08:25)
[2021-10-20] MEDS: ATORVASTATIN 40 MG TAB PO SCH (08:25)
[2021-10-20] MEDS: PANTOprazole 40 MG TAB PO SCH (08:25)
[2021-10-20] MEDS: amLODIPine BESYLATE 5 MG TAB PO SCH (08:25)
[2021-10-20] MEDS: lisinopril 40 MG TAB PO SCH (08:25)
[2021-10-20] MEDS: SEVELAMER HCL 800 MG TABLET PO SCH ×3 (08:26→17:28)
[2021-10-20] MEDS: FUROSEMIDE 80 MG TAB PO SCH ×2 (08:26→22:10)
[2021-10-20] MEDS: carvediloL 25 MG TAB PO SCH ×2 (08:26→22:09)
--- NOTE | 2021-10-20 09:46 | Hospitalist Progress Note ---
Date of Service October 20, 2021 Assessment & Plan (1) Hypoxia: Plan: Secondary to COVID 19 infection CXR c/w multifocal pna, moderate pulm. edema procalcitonin elevated at 0.9 but suspect procalcitonin elevated secondary to renal disease. (2) COVID-19 virus infection: Plan: Remdesivir contraindicated in setting of ESRD. Continue dexamethasone daily. Continue supportive care including antitussives such as scheduled benzonatate and as needed Robitussin-AC. (3) Neutropenia: Plan: Likely related to viral infection. Will be expected to trend up as patient improves clinically. Trend CBC. (4) Elevated troponin: Plan: Patient has ESRD, a chronic history of heart disease and now a COVID-19 infection. ACS considered less likely. Notably patient has no chest pain. Echo obtained -LV systolic function is mildly reduced. EF 45 to 50%. There is moderate concentric LVH. Borderline global hypokinesis with mild hypokinesis of the base and mid inferior wall. There is mild mitral regurg. There is trace tricuspid regurg. The estimated systolic pulmonary pressure is 38 mmHg. Compared to study dated July 2020 in the [facility] medical record, LV EF and regional wall motion unchanged. Patient was started on IV heparin and cardiology was also consulted. Believed to be secondary to type II troponin elevation, due to hypoxia, ESRD, chronic anemia Recent Lexiscan nuclear stress test performed in June 2021 without perfusion defect to suggest ischemia His ECG and echocardiogram are stable. Continue aspirin, statin, beta-glne, isosorbide monohydrate and hydralazine as previously ordered. (5) ESRD on dialysis: Plan: Completed his Friday session on day of admission. Consulted nephro. Patient is on a Friday schedule. C ontinue sevelamer and Sensipar. He is also on an additional phosphate binder that is not on formulary. Encouraged to bring this in from home. (6) Diabetes mellitus, type II: Plan: Last A1c is 5.8 reflecting good control. He reports being a diet controlled diabetic. glucose checks with correction factor due to ongoing steroids. Escalate insulin needs if steroid induced hyperglycemia presents. (7) Hypothyroidism: Plan: Chronic, stable, continue levothyroxine per home management (8) Hypertension: Plan: Slightly elevated on admission which may be related to steroid administration. Continue home regimen and hydralazine as needed. (9) Hx of CABG: (10) Anemia due to end stage renal disease: Plan: Chronic, stable at his baseline. Continue to monitor. (11) DVT prophylaxis: Plan: Heparin drip Full code Disposition-pending resolution of hypoxia and clinical improvement from a COVID standpoint Admission and Anticipated Discharge Date Admission Date: October 19, 2021 Subjective Patient seen for follow-up of COVID-19 pneumonia Currently on 2 liters of O2 Troponin elevated, patient was started IV heparin, seen by cardiology, echo obtained Patient also has history of ESRD, on dialysis -had HD session yesterday Currently sitting up in bed, in no acute distress, says he is feeling well Denies fevers, chills, chest pain, increased shortness of breath, reports some dry cough Review of Systems Review of Systems: All systems reviewed & are unremarkable except as noted in Subjective Physical Exam Physical Exam: CONSTITUTIONAL: obese M NAD, on 2L of NC EYES: normal conjunctivae, no scleral icterus ENT: external ear and nose normal, MMM NECK:supple RESPIRATORY: clear to auscultation bilaterally, no crackles, rales or wheezes, normal respiratory effort CARDIOVASCULAR: regular rate and rhythm, S1 and 2 heard without murmurs, gallops or rubs, no JVD, no peripheral edema GASTROINTESTINAL: soft, nontender, ND, no guarding MUSCULOSKELETAL: strength 5/5 throughout, head is normocephalic and atraumatic, neck supple SKIN: warm and dry, palpable thrill in fistula RUE NEUROLOGIC:Alert oriented answering questions appropriately, no facial asymmetry, speech fluent, moves extremities PSYCHIATRIC: alert cooperative and oriented to person, place and time. Results & Data Results & Data ([facility]) Vital Signs (Past 12 Hours) Vital Signs Temp Pulse Pulse Resp BP Pulse Ox 10/20/21 07:28 36.7 C 64 18 169/89 H 98 10/20/21 03:00 36.6 C 65 20 155/85 H 95 10/19/21 22:37 70 10/19/21 22:30 37.9 C H 75 20 148/72 H 100 Laboratory Results 10/20/21 10/20/21 10/20/21 Range/Units 07:47 05:37 03:22 WBC (4.8-10.8) K/uL RBC (4.7-6.1) M/uL Hgb (14.0-18.0) g/dL Hct (42-52) % MCV (80-100) fL MCH (25-34) pg MCHC (32-36) g/dL RDW Std Deviation (36.4-46.3) fL RDW Coeff of Ira (11.5-14.5) % Plt Count (130-400) K/uL MPV (7.4-10.4) fL Immature Gran % (Auto) % Neut % (Auto) % Lymph % (Auto) % [place] % (Auto) % Eos % (Auto) % Baso % (Auto) % Neut # (Auto) (1.4-6.5) K/uL Lymph # (Auto) (1.2-3.4) K/uL [place] # (Auto) (0.11-0.59) K/uL Eos # (Auto) (0-0.5) K/uL Baso # (Auto) (0-0.2) K/uL Immature Gran # (Auto) (0.00-0.02) K/uL Platelet Estimate (Normal) Polychromasia PT (9.0-12.0) Seconds INR (0.9-1.1) APTT 65.8 H* (21.0-31.0) Seconds PTT Ratio 2.5 Sodium (136-145) mmol/L Potassium (3.5-5.1) mmol/L Chloride (98-107) mmol/L Carbon Dioxide (21-32) mmol/L Anion Gap (3-11) BUN (7-18) mg/dl Creatinine (0.6-1.4) mg/dl Est Cr Clr Drug Dosing ml/min Est GFR ( Amer) ml/min Est GFR (Non-Af Amer) ml/min BUN/Creatinine Ratio (10-20) Glucose (70-99) mg/dl POC Glucose 200 H (70-99) mg/dl Calcium (8.5-10.1) mg/dl Total Bilirubin (0.2-1) mg/dl AST (15-37) U/L ALT (12-78) Alkaline Phosphatase (45-117) U/L Troponin I (0-0.045) ng/ml C-Reactive Protein (0-0.29) mg/dl Total Protein (6.4-8.2) gm/dl Albumin (3.4-5.0) gm/dl Globulin (2.5-4.0) gm/dl Albumin/Globulin Ratio (0.9-2) Procalcitonin 0.85 H (0-0.5) ng/ml TSH (0.300-4.500) uIu/ml Adenovirus (PCR) (NotDetected) B. pertussis DNA (PCR) (NotDetected) B.parapertussis DNA PCR (NotDetected) C. pneumoniae DNA (PCR) (NotDetected) Coronavirus OC43 (PCR) (NotDetected) Coronavirus HKU1 (PCR) (NotDetected) Coronavirus 229E (PCR) (NotDetected) SARS-CoV-2 (PCR) (NotDetected) Coronavirus NL63 (PCR) (NotDetected) Human Metapneumovir PCR (NotDetected) Influenza Type A (PCR) (NotDetected) Influenza Type B (PCR) (NotDetected) M. pneumoniae (PCR) (NotDetected) Parainfluenza 1 (PCR) (NotDetected) Parainfluenza 2 (PCR) (NotDetected) Parainfluenza 3 (PCR) (NotDetected) Parainfluenza 4 (PCR) (NotDetected) RSV (PCR) (NotDetected) Entero/Rhino (PCR) (NotDetected) 10/20/21 10/20/21 10/20/21 Range/Units 03:22 03:22 03:19 WBC 1.43 L (4.8-10.8) K/uL RBC 3.04 L (4.7-6.1) M/uL Hgb 10.1 L (14.0-18.0) g/dL Hct 29.4 L (42-52) % MCV 96.7 (80-100) fL MCH 33.2 (25-34) pg MCHC 34.4 (32-36) g/dL RDW Std Deviation 45.1 (36.4-46.3) fL RDW Coeff of Ira 13.0 (11.5-14.5) % Plt Count 83 L (130-400) K/uL MPV 10.7 H (7.4-10.4) fL Immature Gran % (Auto) % Neut % (Auto) % Lymph % (Auto) % [place] % (Auto) % Eos % (Auto) % Baso % (Auto) % Neut # (Auto) (1.4-6.5) K/uL Lymph # (Auto) (1.2-3.4) K/uL [place] # (Auto) (0.11-0.59) K/uL Eos # (Auto) (0-0.5) K/uL Baso # (Auto) (0-0.2) K/uL Immature Gran # (Auto) (0.00-0.02) K/uL Platelet Estimate (Normal) Polychromasia PT (9.0-12.0) Seconds INR (0.9-1.1) APTT (21.0-31.0) Seconds PTT Ratio Sodium 132 L (136-145) mmol/L Potassium 3.6 (3.5-5.1) mmol/L Chloride 93 L (98-107) mmol/L Carbon Dioxide 30 (21-32) mmol/L Anion Gap 9.0 (3-11) BUN 36 H (7-18) mg/dl Creatinine 8.46 H* D (0.6-1.4) mg/dl Est Cr Clr Drug Dosing 12.7 ml/min Est GFR ( Amer) 7.7 ml/min Est GFR (Non-Af Amer) 6.7 ml/min BUN/Creatinine Ratio 4.1 L (10-20) Glucose 223 H (70-99) mg/dl POC Glucose (70-99) mg/dl Calcium 7.6 L (8.5-10.1) mg/dl Total Bilirubin (0.2-1) mg/dl AST (15-37) U/L ALT (12-78) Alkaline Phosphatase (45-117) U/L Troponin I 1.690 H* (0-0.045) ng/ml C-Reactive Protein 2.58 H (0-0.29) mg/dl Total Protein (6.4-8.2) gm/dl Albumin (3.4-5.0) gm/dl Globulin (2.5-4.0) gm/dl Albumin/Globulin Ratio (0.9-2) Procalcitonin (0-0.5) ng/ml TSH 1.050 (0.300-4.500) uIu/ml Adenovirus (PCR) (NotDetected) B. pertussis DNA (PCR) (NotDetected) B.parapertussis DNA PCR (NotDetected) C. pneumoniae DNA (PCR) (NotDetected) Coronavirus OC43 (PCR) (NotDetected) Coronavirus HKU1 (PCR) (NotDetected) Coronavirus 229E (PCR) (NotDetected) SARS-CoV-2 (PCR) (NotDetected) Coronavirus NL63 (PCR) (NotDetected) Human Metapneumovir PCR (NotDetected) Influenza Type A (PCR) (NotDetected) Influenza Type B (PCR) (NotDetected) M. pneumoniae (PCR) (NotDetected) Parainfluenza 1 (PCR) (NotDetected) Parainfluenza 2 (PCR) (NotDetected) Parainfluenza 3 (PCR) (NotDetected) Parainfluenza 4 (PCR) (NotDetected) RSV (PCR) (NotDetected) Entero/Rhino (PCR) (NotDetected) 10/19/21 10/19/21 10/19/21 Range/Units 20:40 15:25 15:10 WBC (4.8-10.8) K/uL RBC (4.7-6.1) M/uL Hgb (14.0-18.0) g/dL Hct (42-52) % MCV (80-100) fL MCH (25-34) pg MCHC (32-36) g/dL RDW Std Deviation (36.4-46.3) fL RDW Coeff of Ira (11.5-14.5) % Plt Count (130-400) K/uL MPV (7.4-10.4) fL Immature Gran % (Auto) % Neut % (Auto) % Lymph % (Auto) % [place] % (Auto) % Eos % (Auto) % Baso % (Auto) % Neut # (Auto) (1.4-6.5) K/uL Lymph # (Auto) (1.2-3.4) K/uL [place] # (Auto) (0.11-0.59) K/uL Eos # (Auto) (0-0.5) K/uL Baso # (Auto) (0-0.2) K/uL Immature Gran # (Auto) (0.00-0.02) K/uL Platelet Estimate (Normal) Polychromasia PT (9.0-12.0) Seconds INR (0.9-1.1) APTT (21.0-31.0) Seconds PTT Ratio Sodium (136-145) mmol/L Potassium (3.5-5.1) mmol/L Chloride (98-107) mmol/L Carbon Dioxide (21-32) mmol/L Anion Gap (3-11) BUN (7-18) mg/dl Creatinine (0.6-1.4) mg/dl Est Cr Clr Drug Dosing ml/min Est GFR ( Amer) ml/min Est GFR (Non-Af Amer) ml/min BUN/Creatinine Ratio (10-20) Glucose (70-99) mg/dl POC Glucose (70-99) mg/dl Calcium (8.5-10.1) mg/dl Total Bilirubin (0.2-1) mg/dl AST (15-37) U/L ALT (12-78) Alkaline Phosphatase (45-117) U/L Troponin I 1.540 H* (0-0.045) ng/ml C-Reactive Protein (0-0.29) mg/dl Total Protein (6.4-8.2) gm/dl Albumin (3.4-5.0) gm/dl Globulin (2.5-4.0) gm/dl Albumin/Globulin Ratio (0.9-2) Procalcitonin 0.95 H (0-0.5) ng/ml TSH (0.300-4.500) uIu/ml Adenovirus (PCR) Not Detected (NotDetected) B. pertussis DNA (PCR) Not Detected (NotDetected) B.parapertussis DNA PCR Not Detected (NotDetected) C. pneumoniae DNA (PCR) Not Detected (NotDetected) Coronavirus OC43 (PCR) Not Detected (NotDetected) Coronavirus HKU1 (PCR) Not Detected (NotDetected) Coronavirus 229E (PCR) Not Detected (NotDetected) SARS-CoV-2 (PCR) DETECTED A* (NotDetected) Coronavirus NL63 (PCR) Not Detected (NotDetected) Human Metapneumovir PCR Not Detected (NotDetected) Influenza Type A (PCR) Not Detected (NotDetected) Influenza Type B (PCR) Not Detected (NotDetected) M. pneumoniae (PCR) Not Detected (NotDetected) Parainfluenza 1 (PCR) Not Detected (NotDetected) Parainfluenza 2 (PCR) Not Detected (NotDetected) Parainfluenza 3 (PCR) Not Detected (NotDetected) Parainfluenza 4 (PCR) Not Detected (NotDetected) RSV (PCR) Not Detected (NotDetected) Entero/Rhino (PCR) Not Detected (NotDetected) 10/19/21 10/19/21 10/19/21 Range/Units 15:10 15:10 15:10 WBC 1.61 L (4.8-10.8) K/uL RBC 3.07 L (4.7-6.1) M/uL Hgb 10.1 L (14.0-18.0) g/dL Hct 29.3 L (42-52) % MCV 95.4 (80-100) fL MCH 32.9 (25-34) pg MCHC 34.5 (32-36) g/dL RDW Std Deviation 44.6 (36.4-46.3) fL RDW Coeff of Ira 12.9 (11.5-14.5) % Plt Count 77 L (130-400) K/uL MPV 10.2 (7.4-10.4) fL Immature Gran % (Auto) 0.0 % Neut % (Auto) 55.9 % Lymph % (Auto) 21.7 % [place] % (Auto) 19.3 % Eos % (Auto) 3.1 % Baso % (Auto) 0.0 % Neut # (Auto) 0.90 L* (1.4-6.5) K/uL Lymph # (Auto) 0.35 L (1.2-3.4) K/uL [place] # (Auto) 0.31 (0.11-0.59) K/uL Eos # (Auto) 0.05 (0-0.5) K/uL Baso # (Auto) 0.00 (0-0.2) K/uL Immature Gran # (Auto) 0.00 (0.00-0.02) K/uL Platelet Estimate Decreased L (Normal) Polychromasia 1+ PT 11.6 (9.0-12.0) Seconds INR 1.2 H (0.9-1.1) APTT 30.1 (21.0-31.0) Seconds PTT Ratio 1.1 Sodium 133 L (136-145) mmol/L Potassium 3.5 (3.5-5.1) mmol/L Chloride 94 L (98-107) mmol/L Carbon Dioxide 32 (21-32) mmol/L Anion Gap 7.0 (3-11) BUN 26 H (7-18) mg/dl Creatinine 6.96 H* (0.6-1.4) mg/dl Est Cr Clr Drug Dosing 15.1 ml/min Est GFR ( Amer) 9.8 ml/min Est GFR (Non-Af Amer) 8.4 ml/min BUN/Creatinine Ratio 3.7 L (10-20) Glucose 91 (70-99) mg/dl POC Glucose (70-99) mg/dl Calcium 8.7 (8.5-10.1) mg/dl Total Bilirubin 1.1 H (0.2-1) mg/dl AST 29 (15-37) U/L ALT 22 (12-78) Alkaline Phosphatase 77 (45-117) U/L Troponin I 0.410 H* (0-0.045) ng/ml C-Reactive Protein (0-0.29) mg/dl Total Protein 7.9 (6.4-8.2) gm/dl Albumin 3.8 (3.4-5.0) gm/dl Globulin 4.1 H (2.5-4.0) gm/dl Albumin/Globulin Ratio 0.9 (0.9-2) Procalcitonin (0-0.5) ng/ml TSH (0.300-4.500) uIu/ml Adenovirus (PCR) (NotDetected) B. pertussis DNA (PCR) (NotDetected) B.parapertussis DNA PCR (NotDetected) C. pneumoniae DNA (PCR) (NotDetected) Coronavirus OC43 (PCR) (NotDetected) Coronavirus HKU1 (PCR) (NotDetected) Coronavirus 229E (PCR) (NotDetected) SARS-CoV-2 (PCR) (NotDetected) Coronavirus NL63 (PCR) (NotDetected) Human Metapneumovir PCR (NotDetected) Influenza Type A (PCR) (NotDetected) Influenza Type B (PCR) (NotDetected) M. pneumoniae (PCR) (NotDetected) Parainfluenza 1 (PCR) (NotDetected) Parainfluenza 2 (PCR) (NotDetected) Parainfluenza 3 (PCR) (NotDetected) Parainfluenza 4 (PCR) (NotDetected) RSV (PCR) (NotDetected) Entero/Rhino (PCR) (NotDetected) Medications Administered Current Inpatient Medications Acetaminophen (Acetaminophen 325 Mg Tab) 650 mg PO Q4H PRN PRN Reason: Pain or Fever Stop: 11/18/21 19:47 Amlodipine Besylate (Amlodipine Besylate 5 Mg Tab) 10 mg PO QAM [facility] Stop: 11/19/21 08:59 Last Admin: 10/20/21 08:25 Dose: 10 mg Documented by: Aspirin (Aspirin 81 Mg Ectab) 81 mg PO [facility] Stop: 11/18/21 20:59 Last Admin: 10/19/21 20:32 Dose: 81 mg Documented by: Atorvastatin Calcium (Atorvastatin 40 Mg Tab) 80 mg PO QAM [facility] Stop: 11/19/21 08:59 Last Admin: 10/20/21 08:25 Dose: 80 mg Documented by: Benzonatate (Benzonatate 100 Mg Capsule) 100 mg PO TID [facility] Stop: 11/18/21 20:59 Last Admin: 10/20/21 08:24 Dose: 100 mg Documented by: Carvedilol (Carvedilol 25 Mg Tab) 25 mg PO BID [facility] Stop: 11/18/21 20:59 Last Admin: 10/20/21 08:26 Dose: 25 mg Documented by: Cinacalcet (Cinacalcet Hcl 30 Mg Tab) 30 mg PO [facility] Stop: 11/18/21 20:59 Last Admin: 10/19/21 20:32 Dose: 30 mg Documented by: Dextrose (Dextrose 50% 50 Ml Syringe) 25 - 50 ml IV UD PRN; Protocol PRN Reason: Hypoglycemia Protocol Stop: 11/18/21 21:36 Furosemide (Furosemide 80 Mg Tab) 80 mg PO QPM [facility] Stop: 11/18/21 20:59 Last Admin: 10/19/21 21:28 Dose: 80 mg Documented by: Furosemide (Furosemide 80 Mg Tab) 160 mg PO DAILY [facility] Stop: 11/19/21 08:59 Last Admin: 10/20/21 08:26 Dose: 160 mg Documented by: Glucagon (Glucagon For Inj 1 Mg Vial) 1 mg SQ UD PRN; Protocol PRN Reason: Hypoglycemia Protocol Stop: 11/18/21 21:36 Glucose (Glucose 10 Tabs/Tube) 4 - 8 tabs PO UD PRN; Protocol PRN Reason: Hypoglycemia Protocol Stop: 11/18/21 21:36 Glucose (Glucose 40% Gel 15 Gm Tube) 15 - 30 gm PO UD PRN; Protocol PRN Reason: Hypoglycemia Protocol Stop: 11/18/21 21:36 Guaifenesin/Codeine Phosphate (Guaifenesin/Codeine 200mg/20mg 10ml Udc) 10 ml PO Q6H PRN PRN Reason: Cough Stop: 11/18/21 19:47 Last Admin: 10/19/21 20:31 Dose: 10 ml Documented by: Hydralazine HCl (Hydralazine Hcl 25 Mg Tab) 25 mg PO BID [facility] Stop: 11/18/21 20:59 Last Admin: 10/20/21 08:25 Dose: 25 mg Documented by: Hydralazine HCl (Hydralazine Hcl 20 Mg/Ml Vial) 10 mg IV Q6H PRN PRN Reason: SBP>180 Stop: 11/18/21 21:44 Dexamethasone 6 mg/ Syringe 1.5 mls @ 1 mls/min IV DAILY [facility] Stop: 11/18/21 18:29 Last Admin: 10/20/21 08:24 Dose: 1 mls/min Documented by: Heparin Sodium/Dextrose (Heparin Sodium/Dextrose) 25,000 units in 500 mls @ 30 mls/hr IV .[id number] [facility]; Protocol Stop: 11/18/21 21:59 Last Titration: 10/20/21 07:08 Dose: 1,500 units/hr, 30 mls/hr Documented by: Insulin Aspart (Insulin Aspart Per Unit) 0 units SC ACHS [facility] Stop: 11/19/21 07:29 Last Admin: 10/20/21 08:24 Dose: 1 units Documented by: Isosorbide Mononitrate (Isosorbide [place] Extended Rel 30 Mg Tabcr) 30 mg [facility] [place] Stop: 11/19/21 08:59 Last Admin: 10/20/21 08:25 Dose: 30 mg Documented by: Levothyroxine Sodium (Levothyroxine Sodium 25 Mcg Tablet) [facility] Stop: 11/19/21 06:29 Last Admin: 10/20/21 07:13 Dose: 25 mcg Documented by: Lisinopril (Lisinopril 40 Mg Tab) 40 mg PO [facility] Stop: 11/19/21 08:59 Last Admin: 10/20/21 08:25 Dose: 40 mg Documented by: Miscellaneous (Carbohydrates For Hypoglycemia ) 15 - 30 gm PO UD PRN PRN Reason: Hypoglycemia Protocol Stop: 11/18/21 21:36 Ondansetron HCl (Ondansetron Inj 2 Mg/Ml 2 Ml Vial) 4 mg IV Q6H PRN PRN Reason: Nausea Stop: 11/18/21 19:47 Pantoprazole Sodium (Pantoprazole 40 Mg Tab) 40 mg PO [facility] Stop: 11/19/21 08:59 Last Admin: 10/20/21 08:25 Dose: 40 mg Documented by: Polyethylene Glycol (Polyethylene (Miralax) 17 Gm Pack) 17 gm PO DAILY PRN PRN Reason: Constipation Stop: 11/18/21 19:47 Sevelamer HCl (Sevelamer Hcl 800 Mg Tablet) 1,600 mg PO TIDM [facility] Stop: 11/18/21 19:47 Last Admin: 10/20/21 08:26 Dose: 1,600 mg Documented by: Sevelamer HCl (Sevelamer Hcl 800 Mg Tablet) 800 mg PO TID PRN PRN Reason: SNACKS Stop: 11/18/21 20:08 Tamsulosin HCl (Tamsulosin Hcl 0.4 Mg Cap) 0.4 mg PO [facility] Stop: 11/19/21 08:59 Last Admin: 10/20/21 08:24 Dose: 0.4 mg Documented by:
--- NOTE | 2021-10-20 12:40 | XRay Report ---
XR chest 1V portable CLINICAL HISTORY: monitor for pneumonia TECHNIQUE: Single frontal radiograph of the chest was obtained. Comparison: Comparison is made to chest one view 10/19/2021 FINDINGS: Median sternotomy wires are stable. Cardiomegaly is noted. There is prominence and cephalization of t he vasculature with Sheila B lines seen. Multifocal airspace opacities are slightly more prominent th an in the prior exam. No evidence of pleural effusion or pneumothorax. IMPRESSION: 1. Moderate pulmonary edema. This is stable from prior exam. 2. Worsening multifocal airspace opacities which may represent multifocal pneumonia. 3. Stable clinically. ACT 112: Negative or not required by law. Electronically signed by: Moses Eason M.D. 10/20/2021 12:39 PM
--- NOTE | 2021-10-20 12:57 | Cardiology Consultation ---
Date of Consultation October 20, 2021 Assessment & Plan (1) COVID-19 virus infection: (2) Elevated troponin: (3) Hypoxia: (4) Coronary artery disease: (5) Hx of CABG: (6) Thrombocytopenia: (7) Anemia: (8) ESRD on dialysis: 51-year-old patient with history of coronary artery bypass grafting x5 in 2013 presents with symptoms consistent with COVID-19 infection including cough and hypoxia. Type 2 troponin elevation secondary to COVID-19 infection with hypoxia, end-stage renal disease, in the setting of chronic anemia. Continue IV heparin cautiously with repeat CBC in a.m. Due to thrombocytopenia. Recent Lexiscan nuclear stress test performed in June 2021 without perfusion defect to suggest ischemia. His ECG and echocardiogram are stable. Continue aspirin, statin, beta-glen, isosorbide monohydrate and hydralazine as previously ordered. Supplemental oxygen and treatment of COVID-19 infection as per primary service. I will continue to follow patient during hospitalization. History of Present Illness Reason for Consultation: Elevated troponin, CAD, s/p CABG Requesting Physician: Dr. Smith Attending Physician: Dennis Smith MD History of Present Illness 51-year-old patient presented to the emergency department with cough, shortness of breath, and chills. Brother diagnosed with COVID-19 prompting evaluation. In the ER patient noted to be hypoxic with an oxygen saturation of 88%. Due to mildly elevated troponin, patient admitted for further evaluation and treatment. Today he is feeling better. Noted some "heaviness" of his lungs during the week associated with cough. Also noted significant gagging and vomiting after coughing spells. Symptoms unlike prior angina. Currently resting comfortably. Telemetry reveals sinus rhythm without dysrhythmia. Intravenous heparin initiated in the ER due to mildly elevated troponin. Recent Lexiscan nuclear stress test performed at [facility] in June demonstrating no perfusion defects with borderline elevated 3 times daily index, 1.25. Ejection fraction typically ranges between 40-50%. Inferior and anteroseptal wall motion abnormalities noted on prior echocardiograms. Preliminary review of bedside echocardiogram demonstrates stable findings with ejection fraction of 45-50% and mild hypokinesis of the basal mid inferior wall. Allergies Allergy/AdvReac Type Severity Reaction Status Date / Time Penicillins Allergy Severe ANAPHYLAXIS Verified 10/19/21 16:39 Home Medications Medication Instructions Recorded Confirmed Type levothyroxine 25 mcg tablet 25 mcg PO DAILYBB #0 11/02/15 10/19/21 History diphenhydramine HCl 25 mg capsule 25 mg PO DAILY PRN #0 04/23/16 10/19/21 History (Benadryl) sevelamer carbonate 800 mg tablet 800 - 1,600 mg PO DIRECTED #0 08/23/16 10/19/21 History (Renvela) isosorbide mononitrate 30 mg 30 mg PO QAM #0 tab 11/09/17 10/19/21 History tablet,extended release 24 hr furosemide 80 mg tablet 80 - 160 mg PO AMPM #0 tab 03/30/18 10/19/21 History tamsulosin 0.4 mg capsule 0.4 mg PO QAM #0 04/25/18 10/19/21 History pantoprazole 40 mg tablet,delayed 40 mg PO QAM 06/16/18 10/19/21 History release (Protonix) carvedilol 25 mg tablet 25 mg PO BID 02/21/20 10/19/21 History lisinopril 40 mg tablet 40 mg PO QAM 02/21/20 10/19/21 History amlodipine 10 mg tablet 10 mg PO QAM 05/11/21 10/19/21 History aspirin 81 mg tablet,delayed 81 mg PO HS 05/11/21 10/19/21 History release atorvastatin 80 mg tablet 80 mg PO QAM 05/11/21 10/19/21 History cinacalcet 30 mg tablet (Sensipar) 30 mg PO HS 05/11/21 10/19/21 History hydralazine 25 mg tablet 25 mg PO BID 08/21/21 10/19/21 History sucroferric oxyhydroxide 500 mg 500 mg PO TIDM 08/21/21 10/19/21 History chewable tablet (Velphoro) Patient History Medical History (Updated 10/20/21 @ 18:32 by Kacey Chaudhry MD, PhD) Anemia due to end stage renal disease CAD (coronary artery disease) s/p CABG in 2013 Congestive heart failure Combined systolic and diastolic, compensated. Echo 2018 showed EF 40-45%. Prior to CABG EF was 30-34%. Diabetes mellitus, type 2 diet controlled Diabetic neuropathy Diabetic retinopathy BOTH EYES OPERATED ON Encounter for pre-operative examination ESRD (end stage renal disease) on dialysis 3xwk, m,w,f at [facility] Follows with dr. chaudhry Hyperlipidemia Hypertension Hypothyroidism Ischemic cardiomyopathy Morbid obesity with BMI of 40.0-44.9, adult Myocardial Infarction NSTEMI 02/2014--FOLLOWS W DR. CAMACHO Osteoarthritis Peripheral neuropathy Thrombocytopenia Chronic. Surgical History Fistula PLACED IN L WRIST H/O eye surgery RT/LT History of cardiac cath 02/2014--NO STENTS History of coronary artery bypass graft QUADRIPLE BYPASS @ [facility] [place] 02/2014. History of vascular access device permacath insertion--no longer has Hx of hernia repair abdominal hernia and removed PD catheter due to infection 06/2018 S/P arteriovenous (AV) fistula repair x2--recently in 05/31/2021 @ [facility] [place], prior to that 04/18/20 @ [facility] with Dr. Serrano Family History Mother Family history of diabetes mellitus Family history of reaction to anesthesia VERY GROGGY AFTER 10 HOUR SURGERY Grandfather Family history of diabetes mellitus MATERNAL Family/Other Family hx of colon cancer UNCLE Family history of diabetes mellitus MATERNAL AUNT Brother Family history of diabetes mellitus Social History Smoking Status: Never smoker Second Hand Exposure: Yes (FATHER SMOKED); Hx Alcohol Use: No Hx Substance Use: No Preferred Language: Chinese Communication Ability: Effective Visual Impairment: No Limitations Mortician Investigator Required: No Beliefs That Will Affect Care: None marital status: Single Current Living Situation: Family Current Living Situation Comment: [facility] current occupational status: disabled How many Children do You have: 0 Feels Safe at Home: Yes Safety Concerns: Feels Safe At This Time Assistive Devices: None Review of Systems Review of Systems: All systems reviewed & are unremarkable except as noted in Subjective Physical Exam Constitutional: well developed, well nourished and + obese; no acute distress Respiratory: normal respiratory effort; no respiratory distress, no labored breathing and no retractions Auscultation: no crackles, no rales, no rhonchi and no wheezes Cardiovascular: Rate/Rhythm: regular rate and regular rhythm Heart Sounds: normal S1 and normal S2; no murmur Vessels: no JVD and no carotid bruit Gastrointestinal (Abdomen): Inspection/Auscultation: abdomen normal to inspection and normal bowel sounds; abdomen not distended Percussion/Palpation: abdomen soft; abdomen nontender, no guarding and abdomen not rigid Neurologic: CN's II-XI intact bilaterally and moves all extremities; no focal motor deficits Motor/Sensory: no tremor Psychiatric: A+Ox3, euthymic affect Results & Data ([facility]) Vital Signs (Past 12 Hours) Vital Signs Temp Pulse Resp BP Pulse Ox 10/20/21 11:48 36.6 C 62 18 156/79 H 92 10/20/21 07:28 36.7 C 64 18 169/89 H 98 10/20/21 03:00 36.6 C 65 20 155/85 H 95
--- NOTE | 2021-10-20 13:42 | Electrocardiogram Report ---
Test Reason : Blood Pressure : / mmHG Vent. Rate : 077 BPM Atrial Rate : 077 BPM P-R Int : 180 ms QRS Dur : 096 ms QT Int : 418 ms P-R-T Axes : 052 023 078 degrees QTc Int : 473 ms Poor data quality, interpretation may be adversely affected Normal sinus rhythm Possible Left atrial enlargement Nonspecific ST abnormality Abnormal ECG When compared with ECG of 16-AUG-2021 18:00, No significant change was found Confirmed by Sandeep Mckeon ([id number]) on 10/20/2021 1:41:40 PM Referred By: REFERRED SELF Confirmed By:Sandeep Mckeon
--- NOTE | 2021-10-20 13:44 | Electrocardiogram Report ---
Test Reason : Blood Pressure : / mmHG Vent. Rate : 077 BPM Atrial Rate : 077 BPM P-R Int : 176 ms QRS Dur : 100 ms QT Int : 428 ms P-R-T Axes : 063 014 078 degrees QTc Int : 484 ms Poor data quality, interpretation may be adversely affected Normal sinus rhythm Prolonged QT Nonspecific ST abnormality Abnormal ECG When compared with ECG of 19-OCT-2021 15:03, No significant change Confirmed by Sandeep Mckeon ([id number]) on 10/20/2021 1:44:34 PM Referred By: REFERRED SELF Confirmed By:Sandeep Mckeon
[2021-10-20] MEDS: HEPARIN SODIUM/DEXTROSE 25,000 UNITS/500 ML BAG IV SCH (16:16)
--- NOTE | 2021-10-20 18:35 | Nephrology Consultation ---
Date of Consultation October 20, 2021 Assessment & Plan (1) ESRD (end stage renal disease) on dialysis: had full tx on 10/19, though no UF w/ tx d/t coming in well under target wt w/ decreased po. he may have moderate fluid overload at this time ; chemistries ok >monitor but no HD today; may need tomorrow depending on course but will aim for 10/22 tx >>>>at hospital d/c will need special arrangement time to do dialysis at [facility] d/t covid status -daily bmp, cbc (2) COVID-19 virus infection: -supportive care per primary service -note on HD post d/c as above History of Present Illness Reason for Consultation: ESRD on Dialysis Requesting Physician: Dr Smith Attending Physician: Dennis Smith MD History of Present Illness 51 y/o M whom I'm asked to see for dialysis needs was admitted last evening admitted w/ symptomatic covid. He presented w/ hypoxia; also had cough and gagging/dry heaves w/ occasional emesis, very poor appetite. He dialyzes MWF under my care at [facility] via AVF > his TW is 113.5 kg; he presented on 10/19 in low 112 kg range and had no fluid removed at HD. He developed N and dry heaves, diarrhea, poor po on 10/16. He lives w/ his brother who tested positive for covid yesterday. No pneumonia on CXR. PMH includes CAD s/p cabg, chronic systolic HF EF 40%, DM, hypothyroid, obesity, chronic thrombocytopenia. he had mild troponin elevation on presentation and heparin started, cardiology following. TTE today unchanged. Lexiscan nuke stress test w/o ischemia 06/2021. Allergies Allergy/AdvReac Type Severity Reaction Status Date / Time Penicillins Allergy Severe ANAPHYLAXIS Verified 10/19/21 16:39 Home Medications Medication Instructions Recorded Confirmed Type levothyroxine 25 mcg tablet 25 mcg PO DAILYBB #0 11/02/15 10/19/21 History diphenhydramine HCl 25 mg capsule 25 mg PO DAILY PRN #0 04/23/16 10/19/21 History (Benadryl) sevelamer carbonate 800 mg tablet 800 - 1,600 mg PO DIRECTED #0 08/23/16 10/19/21 History (Renvela) isosorbide mononitrate 30 mg 30 mg PO QAM #0 tab 11/09/17 10/19/21 History tablet,extended release 24 hr furosemide 80 mg tablet 80 - 160 mg PO AMPM #0 tab 03/30/18 10/19/21 History tamsulosin 0.4 mg capsule 0.4 mg PO QAM #0 04/25/18 10/19/21 History pantoprazole 40 mg tablet,delayed 40 mg PO QAM 06/16/18 10/19/21 History release (Protonix) carvedilol 25 mg tablet 25 mg PO BID 02/21/20 10/19/21 History lisinopril 40 mg tablet 40 mg PO QAM 02/21/20 10/19/21 History amlodipine 10 mg tablet 10 mg PO QAM 05/11/21 10/19/21 History aspirin 81 mg tablet,delayed 81 mg PO HS 05/11/21 10/19/21 History release atorvastatin 80 mg tablet 80 mg PO QAM 05/11/21 10/19/21 History cinacalcet 30 mg tablet (Sensipar) 30 mg PO HS 05/11/21 10/19/21 History hydralazine 25 mg tablet 25 mg PO BID 08/21/21 10/19/21 History sucroferric oxyhydroxide 500 mg 500 mg PO TIDM 08/21/21 10/19/21 History chewable tablet (Velphoro) Patient History Medical History (Updated 10/20/21 @ 18:32 by Kacey Chaudhry MD, PhD) Anemia due to end stage renal disease CAD (coronary artery disease) s/p CABG in 2013 Congestive heart failure Combined systolic and diastolic, compensated. Echo 2018 showed EF 40-45%. Prior to CABG EF was 30-34%. Diabetes mellitus, type 2 diet controlled Diabetic neuropathy Diabetic retinopathy BOTH EYES OPERATED ON Encounter for pre-operative examination ESRD (end stage renal disease) on dialysis 3xwk, m,w,f at [facility] Follows with dr. chaudhry Hyperlipidemia Hypertension Hypothyroidism Ischemic cardiomyopathy Morbid obesity with BMI of 40.0-44.9, adult Myocardial Infarction NSTEMI 02/2014--FOLLOWS W DR. CAMACHO Osteoarthritis Peripheral neuropathy Thrombocytopenia Chronic. Surgical History Fistula PLACED IN L WRIST H/O eye surgery RT/LT History of cardiac cath 02/2014--NO STENTS History of coronary artery [place] [facility] [place] History of vascular access device permacath insertion--no longer has Hx of hernia repair abdominal hernia and removed PD catheter due to infection 06/2018 S/P arteriovenous (AV) fistula repair x2--[place] [facility] [place]18/20 @ [facility] with Dr. Serrano Family History Mother Family history of diabetes mellitus Family history of reaction to anesthesia VERY GROGGY AFTER 10 HOUR SURGERY Grandfather Family history of diabetes mellitus MATERNAL Family/Other Family hx of colon cancer UNCLE Family history of diabetes mellitus MATERNAL AUNT Brother Family history of diabetes mellitus Social History Smoking Status: Never smoker Second Hand Exposure: Yes (FATHER SMOKED); Hx Alcohol Use: No Hx Substance Use: No Preferred Language: Uzbek Communication Ability: Effective Visual Impairment: No Limitations Physicist Light And Optics Required: No Beliefs That Will Affect Care: None marital status: Single Current Living Situation: Family Current Living Situation Comment: Brother DALE current occupational status: disabled How many Children do You have: 0 Feels Safe at Home: Yes Safety Concerns: Feels Safe At This Time Assistive Devices: None Review of Systems Review of Systems: All systems reviewed & are unremarkable except as noted in HPI & below Physical Exam 2 Constitutional: well developed, well nourished and cooperative; no acute distress Eyes: EOM intact bilaterally ENMT: Ears: no external ear abnormality Nose: no external nose abnormality Mouth: + dry oral mucous membranes Neck: no nuchal rigidity Respiratory: normal respiratory effort Auscultation: + diminished lung sounds Gastrointestinal (Abdomen): Inspection/Auscultation: normal bowel sounds Percussion/Palpation: abdomen soft; abdomen nontender Musculoskeletal: Extremities: strength 5/5 throughout Skin: no rashes, warm and dry Neurologic: sharp, fluent speech, no tremor Psychiatric: Orientation: alert and oriented x 3 Results & Data ([facility]) Vital Signs (Past 12 Hours) Vital Signs Temp Pulse Pulse Resp BP Pulse Ox 10/20/21 16:26 59 L 10/20/21 15:43 36.5 C 60 18 157/76 H 95 10/20/21 11:48 36.6 C 62 18 156/79 H 92 10/20/21 07:30 65 10/20/21 07:28 36.7 C 64 18 169/89 H 98 Laboratory Results 10/20/21 03:22 10/20/21 03:22 Diagnostic Findings TTE as above CXR 1. Moderate pulmonary edema. This is stable from prior exam. 2. Worsening multifocal airspace opacities which may represent multifocal pneumonia. 3. Stable clinically.
[2021-10-20] MEDS: guaiFENesin 600 MG TABCR PO SCH (22:09)
[2021-10-20] MEDS: CINACALCET HCL 30 MG TAB PO SCH (22:10)
[2021-10-20] MEDS: ASPIRIN 81 MG ECTAB PO SCH (22:11)
[2021-10-21] MEDS: LEVOTHYROXINE SODIUM 25 MCG TABLET PO SCH (06:30)
--- NOTE | 2021-10-21 07:06 | Hospitalist Progress Note ---
Date of Service October 21, 2021 Assessment & Plan (1) Hypoxia: Plan: Secondary to COVID 19 infection CXR c/w multifocal pna, moderate pulm. edema procalcitonin elevated at 0.9 but suspect procalcitonin elevated secondary to renal disease. (2) COVID-19 virus infection: Plan: Remdesivir contraindicated in setting of ESRD. Continue dexamethasone daily. Continue supportive care including antitussives such as scheduled benzonatate and as needed Robitussin-AC. (3) Neutropenia: Plan: Likely related to viral infection. Will be expected to trend up as patient improves clinically. Trend CBC. (4) Elevated troponin: Plan: Patient has ESRD, a chronic history of heart disease and now a COVID-19 infection. ACS considered less likely. Notably patient has no chest pain. Echo obtained -LV systolic function is mildly reduced. EF 45 to 50%. There is moderate concentric LVH. Borderline global hypokinesis with mild hypokinesis of the base and mid inferior wall. There is mild mitral regurg. There is trace tricuspid regurg. The estimated systolic pulmonary pressure is 38 mmHg. Compared to study dated July 2020 in the [facility] medical record, LV EF and regional wall motion unchanged. Patient was started on IV heparin and cardiology was also consulted. Believed to be secondary to type II troponin elevation, due to hypoxia, ESRD, chronic anemia Recent Lexiscan nuclear stress test performed in June 2021 without perfusion defect to suggest ischemia His ECG and echocardiogram are stable. Continue aspirin, statin, beta-glen, isosorbide monohydrate and hydralazine as previously ordered. (5) ESRD on dialysis: Plan: Completed his Friday session on day of admission. Consulted nephro. Patient is on a Friday schedule. Continue sevelamer and Sensipar. He is also on an additional phosphate binder that is not on formulary. Encouraged to bring this in from home. (6) Diabetes mellitus, type II: Plan: Last A1c is 5.8 reflecting good control. He reports being a diet controlled diabetic. glucose checks with correction factor due to ongoing steroids. Escalate insulin needs if steroid induced hyperglycemia presents. (7) Hypothyroidism: Plan: Chronic, stable, continue levothyroxine per home management (8) Hypertension: Plan: Slightly elevated on admission which may be related to steroid administration. Continue home regimen and hydralazine as needed. (9) Hx of CABG: (10) Anemia due to end stage renal disease: Plan: Chronic, stable at his baseline. Continue to monitor. (11) DVT prophylaxis: Plan: Heparin drip Full code Disposition-pending resolution of hypoxia and clinical improvement from a COVID standpoint Admission and Anticipated Discharge Date Admission Date: October 19, 2021 Subjective Patient seen for follow-up of COVID-19 pneumonia Currently on 2 liters of O2 however saturating well, will go down on his oxygen now and will continue to monitor, try to wean off oxygen Troponin elevated, patient was started IV heparin, seen by cardiology, echo obtained, plan to continue IV heparin till morning Patient also has history of ESRD, on dialysis -had HD session on Friday. He is due for next dialysis session tomorrow Currently sitting up in bed, in no acute distress, says he is feeling well Denies fevers, chills, chest pain, increased shortness of breath, reports some dry cough Review of Systems Review of Systems: All systems reviewed & are unremarkable except as noted in Subjective Physical Exam Physical Exam: CONSTITUTIONAL: obese M NAD, on 2L of NC EYES: normal conjunctivae, no scleral icterus ENT: external ear and nose normal, MMM NECK:supple RESPIRATORY: clear to auscultation bilaterally, no crackles, rales or wheezes, normal respiratory effort CARDIOVASCULAR: regular rate and rhythm, S1 and 2 heard without murmurs, gallops or rubs, no JVD, no peripheral edema GASTROINTESTINAL: soft, nontender, ND, no guarding MUSCULOSKELETAL: strength 5/5 throughout, head is normocephalic and atraumatic, neck supple SKIN: warm and dry, palpable thrill in fistula RUE NEUROLOGIC:Alert oriented answering questions appropriately, no facial asymmetry, speech fluent, moves extremities PSYCHIATRIC: alert cooperative and oriented to person, place and time. Results & Data Results & Data ([facility]) Vital Signs (Past 12 Hours) Vital Signs Temp Pulse Pulse Resp BP Pulse Ox 10/21/21 06:49 36.4 C L 54 L 18 165/84 H 95 10/21/21 04:39 61 10/21/21 03:00 36.6 C 66 18 133/80 96 10/20/21 22:47 36.8 C 64 20 151/83 H 97 10/20/21 19:41 36.6 C 62 18 153/78 H 96 Laboratory Results 10/21/21 10/21/21 10/21/21 Range/Units 12:12 09:05 09:05 WBC 3.15 L (4.8-10.8) K/uL RBC 3.06 L (4.7-6.1) M/uL Hgb 10.1 L (14.0-18.0) g/dL Hct 29.0 L (42-52) % MCV 94.8 (80-100) fL MCH 33.0 (25-34) pg MCHC 34.8 (32-36) g/dL RDW Std Deviation 43.7 (36.4-46.3) fL RDW Coeff of Ira 12.7 (11.5-14.5) % Plt Count 88 L (130-400) K/uL MPV 10.9 H (7.4-10.4) fL APTT (21.0-31.0) Seconds PTT Ratio Sodium 130 L (136-145) mmol/L Potassium 3.9 (3.5-5.1) mmol/L Chloride 91 L (98-107) mmol/L Carbon Dioxide 28 (21-32) mmol/L Anion Gap 12.0 H (3-11) BUN 65 H D (7-18) mg/dl Creatinine 11.10 H* D (0.6-1.4) mg/dl Est Cr Clr Drug Dosing 9.7 ml/min Est GFR ( Amer) 5.6 ml/min Est GFR (Non-Af Amer) 4.8 ml/min BUN/Creatinine Ratio 5.9 L (10-20) Glucose 187 H (70-99) mg/dl POC Glucose 218 H (70-99) mg/dl Calcium 8.4 L (8.5-10.1) mg/dl Phosphorus 5.3 H (2.5-4.9) mg/dl Magnesium 2.3 (1.8-2.4) mg/dl 10/21/21 10/21/21 10/20/21 Range/Units 09:05 07:14 19:58 WBC (4.8-10.8) K/uL RBC (4.7-6.1) M/uL Hgb (14.0-18.0) g/dL Hct (42-52) % MCV (80-100) fL MCH (25-34) pg MCHC (32-36) g/dL RDW Std Deviation (36.4-46.3) fL RDW Coeff of Ira (11.5-14.5) % Plt Count (130-400) K/uL MPV (7.4-10.4) fL APTT 124.3 H* (21.0-31.0) Seconds PTT Ratio 4.7 Sodium (136-145) mmol/L Potassium (3.5-5.1) mmol/L Chloride (98-107) mmol/L Carbon Dioxide (21-32) mmol/L Anion Gap (3-11) BUN (7-18) mg/dl Creatinine (0.6-1.4) mg/dl Est Cr Clr Drug Dosing ml/min Est GFR ( Amer) ml/min Est GFR (Non-Af Amer) ml/min BUN/Creatinine Ratio (10-20) Glucose (70-99) mg/dl POC Glucose 169 H 232 H (70-99) mg/dl Calcium (8.5-10.1) mg/dl Phosphorus (2.5-4.9) mg/dl Magnesium (1.8-2.4) mg/dl 10/20/21 Range/Units 16:43 WBC (4.8-10.8) K/uL RBC (4.7-6.1) M/uL Hgb (14.0-18.0) g/dL Hct (42-52) % MCV (80-100) fL MCH (25-34) pg MCHC (32-36) g/dL RDW Std Deviation (36.4-46.3) fL RDW Coeff of Ira (11.5-14.5) % Plt Count (130-400) K/uL MPV (7.4-10.4) fL APTT (21.0-31.0) Seconds PTT Ratio Sodium (136-145) mmol/L Potassium (3.5-5.1) mmol/L Chloride (98-107) mmol/L Carbon Dioxide (21-32) mmol/L Anion Gap (3-11) BUN (7-18) mg/dl Creatinine (0.6-1.4) mg/dl Est Cr Clr Drug Dosing ml/min Est GFR ( Amer) ml/min Est GFR (Non-Af Amer) ml/min BUN/Creatinine Ratio (10-20) Glucose (70-99) mg/dl POC Glucose 228 H (70-99) mg/dl Calcium (8.5-10.1) mg/dl Phosphorus (2.5-4.9) mg/dl Magnesium (1.8-2.4) mg/dl Medications Administered Current Inpatient Medications Acetaminophen (Acetaminophen 325 Mg Tab) 650 mg PO Q4H PRN PRN Reason: Pain or Fever Stop: 11/18/21 19:47 Amlodipine Besylate (Amlodipine Besylate 5 Mg Tab) 10 mg PO QAM [facility] Stop: 11/19/21 08:59 Last Admin: 10/20/21 08:25 Dose: 10 mg Documented by: Aspirin (Aspirin 81 Mg Ectab) 81 mg PO [facility] Stop: 11/18/21 20:59 Last Admin: 10/20/21 22:11 Dose: 81 mg Documented by: Atorvastatin Calcium (Atorvastatin 40 Mg Tab) 80 mg PO QAM [facility] Stop: 11/19/21 08:59 Last Admin: 10/20/21 08:25 Dose: 80 mg Documented by: Benzonatate (Benzonatate 100 Mg Capsule) 100 mg PO TID [facility] Stop: 11/18/21 20:59 Last Admin: 10/20/21 23:04 Dose: 100 mg Documented by: Carvedilol (Carvedilol 25 Mg Tab) 25 mg PO BID [facility] Stop: 11/18/21 20:59 Last Admin: 10/20/21 22:09 Dose: 25 mg Documented by: Cinacalcet (Cinacalcet Hcl 30 Mg Tab) 30 mg PO [facility] Stop: 11/18/21 20:59 Last Admin: 10/20/21 22:10 Dose: 30 mg Documented by: Dextrose (Dextrose 50% 50 Ml Syringe) 25 - 50 ml IV UD PRN; Protocol PRN Reason: Hypoglycemia Protocol Stop: 11/18/21 21:36 Furosemide (Furosemide 80 Mg Tab) 80 mg PO QPM [facility] Stop: 11/18/21 20:59 Last Admin: 10/20/21 22:10 Dose: 80 mg Documented by: Furosemide (Furosemide 80 Mg Tab) 160 mg PO DAILY [facility] Stop: 11/19/21 08:59 Last Admin: 10/20/21 08:26 Dose: 160 mg Documented by: Glucagon (Glucagon For Inj 1 Mg Vial) 1 mg SQ UD PRN; Protocol PRN Reason: Hypoglycemia Protocol Stop: 11/18/21 21:36 Glucose (Glucose 10 Tabs/Tube) 4 - 8 tabs PO UD PRN; Protocol PRN Reason: Hypoglycemia Protocol Stop: 11/18/21 21:36 Glucose (Glucose 40% Gel 15 Gm Tube) 15 - 30 gm PO UD PRN; Protocol PRN Reason: Hypoglycemia Protocol Stop: 11/18/21 21:36 Guaifenesin (Guaifenesin 600 Mg Tabcr) 600 mg PO Q12 [facility] Stop: 11/19/21 20:59 Last Admin: 10/20/21 22:09 Dose: 600 mg Documented by: Guaifenesin/Codeine Phosphate (Guaifenesin/Codeine 200mg/20mg 10ml Udc) 10 ml PO Q6H PRN PRN Reason: Cough Stop: 11/18/21 19:47 Last Admin: 10/19/21 20:31 Dose: 10 ml Documented by: Hydralazine HCl (Hydralazine Hcl 25 Mg Tab) 25 mg PO BID [facility] Stop: 11/18/21 20:59 Last Admin: 10/20/21 22:10 Dose: 25 mg Documented by: Hydralazine HCl (Hydralazine Hcl 20 Mg/Ml Vial) 10 mg IV Q6H PRN PRN Reason: SBP>180 Stop: 11/18/21 21:44 Dexamethasone 6 mg/ Syringe 1.5 mls @ 1 mls/min IV DAILY [facility] Stop: 11/18/21 18:29 Last Admin: 10/20/21 08:24 Dose: 1 mls/min Documented by: Heparin Sodium/Dextrose (Heparin Sodium/Dextrose) 25,000 units in 500 mls @ 30 mls/hr IV .[id number] [facility]; Protocol Stop: 11/18/21 21:59 Last Admin: 10/20/21 16:16 Dose: 1,500 units/hr, 30 mls/hr Documented by: Insulin Aspart (Insulin Aspart Per Unit) 0 units SC ACHS [facility] Stop: 11/19/21 07:29 Last Admin: 10/20/21 22:20 Dose: 3 units Documented by: Isosorbide Mononitrate (Isosorbide [place] Extended Rel 30 Mg Tabcr) 30 mg PO QAM [facility] Stop: 11/19/21 08:59 Last Admin: 10/20/21 08:25 Dose: 30 mg Documented by: Levothyroxine Sodium (Levothyroxine Sodium 25 Mcg Tablet) [facility] Stop: 11/19/21 06:29 Last Admin: 10/21/21 06:30 Dose: 25 mcg Documented by: Lisinopril (L[facility]opril 40 Mg Tab) [facility] [place]: 11/19/21 08:59 Last Admin: 10/20/21 08:25 Dose: 40 mg Documented by: Miscellaneous (Carbohydrates For Hypoglycemia ) 15 - 30 gm PO UD PRN PRN Reason: Hypoglycemia Protocol Stop: 11/18/21 21:36 Ondansetron HCl (Ondansetron Inj 2 Mg/Ml 2 Ml Vial) 4 mg IV Q6H PRN PRN Reason: Nausea Stop: 11/18/21 19:47 Pantoprazole Sodium (Pantoprazole 40 Mg Tab) 40 mg PO [facility] Stop: 11/19/21 08:59 Last Admin: 10/20/21 08:25 Dose: 40 mg Documented by: Polyethylene Glycol (Polyethylene (Miralax) 17 Gm Pack) 17 gm PO DAILY PRN PRN Reason: Constipation Stop: 11/18/21 19:47 Sevelamer HCl (Sevelamer Hcl 800 Mg Tablet) 1,600 mg PO TIDM [facility] Stop: 11/18/21 19:47 Last Admin: 10/20/21 17:28 Dose: 1,600 mg Documented by: Sevelamer HCl (Sevelamer Hcl 800 Mg Tablet) 800 mg PO TID PRN PRN Reason: SNACKS Stop: 11/18/21 20:08 Tamsulosin HCl (Tamsulosin Hcl 0.4 Mg Cap) 0.4 mg PO [facility] Stop: 11/19/21 08:59 Last Admin: 10/20/21 08:24 Dose: 0.4 mg Documented by:
[2021-10-21] MEDS: hydrALAZINE HCL 25 MG TAB PO SCH ×2 (08:33→20:10)
[2021-10-21] MEDS: INSULIN ASPART PER UNIT SC SCH ×4 (08:33→21:06)
[2021-10-21] MEDS: HEPARIN SODIUM/DEXTROSE 25,000 UNITS/500 ML BAG IV SCH ×2 (08:33→09:30)
[2021-10-21] MEDS: dexAMETHasone 6 MG in SYRINGE 0 ML IV SCH (08:34)
[2021-10-21] MEDS: lisinopril 40 MG TAB PO SCH (08:34)
[2021-10-21] MEDS: amLODIPine BESYLATE 5 MG TAB PO SCH (08:34)
[2021-10-21] MEDS: SEVELAMER HCL 800 MG TABLET PO SCH ×3 (08:34→17:25)
[2021-10-21] MEDS: TAMSULOSIN HCL 0.4 MG CAP PO SCH (08:34)
[2021-10-21] MEDS: ISOSORBIDE MONO EXTENDED REL 30 MG TABCR PO SCH (08:35)
[2021-10-21] MEDS: FUROSEMIDE 80 MG TAB PO SCH ×2 (08:35→20:09)
[2021-10-21] MEDS: PANTOprazole 40 MG TAB PO SCH (08:35)
[2021-10-21] MEDS: ATORVASTATIN 40 MG TAB PO SCH (08:35)
[2021-10-21] MEDS: carvediloL 25 MG TAB PO SCH ×2 (08:36→20:09)
[2021-10-21] MEDS: guaiFENesin 600 MG TABCR PO SCH ×2 (08:37→20:09)
[2021-10-21] MEDS: BENZONATATE 100 MG CAPSULE PO SCH ×3 (08:41→23:10)
[2021-10-21 09:20] LABS: Hemoglobin 10.1 g/dL (14.0-18.0); Mean Corpuscular Hgb Conc 34.8 g/dL (32-36); Mean Corpuscular Volume 94.8 fL (80-100); RDW Coefficient of Variation 12.7 % (11.5-14.5); RDW Standard Deviation 43.7 fL (36.4-46.3); Red Blood Count 3.06 M/uL (4.7-6.1); White Blood Count 3.15 K/uL (4.8-10.8)
[2021-10-21 09:34] LABS: Mean Platelet Volume 10.9 fL (7.4-10.4); Platelet Count 88 K/uL (130-400)
[2021-10-21 10:16] LABS: Partial Thromboplastin Ratio 4.7
[2021-10-21 10:17] LABS: BUN Creatinine Ratio 5.9 (10-20); Calcium 8.4 mg/dl (8.5-10.1); Creatinine Clr Calc Pharmacy 9.7 ml/min; Est GFR (African American) 5.6 ml/min; Est GFR (Non-African American) 4.8 ml/min; Magnesium 2.3 mg/dl (1.8-2.4); Phosphorus 5.3 mg/dl (2.5-4.9); Potassium 3.9 mmol/L (3.5-5.1)
[2021-10-21 10:22] LABS: Partial Thromboplastin Time 124.3 Seconds (21.0-31.0)
--- NOTE | 2021-10-21 10:45 | Nephrology Progress Note ---
Date of Service October 21, 2021 Assessment & Plan (1) ESRD (end stage renal disease) on dialysis: Plan: had full tx on 10/19, though no UF w/ tx d/t coming in well under target wt w/ decreased po. he may have moderate fluid overload at this time ; chemistries ok >monitor but again no HD today unless he decompensates; will aim for 1/10 tx as inpatient or outpatient >>>>[facility] d/c will need special arrangement for what time time to do dialysis at [facility] d/t covid status//needs to be on cohort shift -daily bmp, cbc (2) COVID-19 virus infection: Plan: -supportive care per primary service -note on HD post d/c as above Admission and Anticipated Discharge Date Admission Date: October 19, 2021 Subjective No interval clinical events. Denies shortness of breath, diarrhea, issues tolerating p.o. Review of Systems Review of Systems: All systems reviewed & are unremarkable except as noted in Subjective Physical Exam Constitutional: well developed, well nourished and cooperative; no acute distress Eyes: EOM intact bilaterally ENMT: Ears: no external ear abnormality Nose: no external nose abnormality Mouth: + dry oral mucous membranes Neck: no nuchal rigidity Respiratory: normal respiratory effort Auscultation: + diminished lung sounds Gastrointestinal (Abdomen): Inspection/Auscultation: normal bowel sounds Percussion/Palpation: abdomen soft; abdomen nontender Musculoskeletal: Extremities: strength 5/5 throughout Skin: no rashes, warm and dry Psychiatric: Orientation: alert and oriented x 3 Results & Data ([facility]) Vital Signs (Past 12 Hours) Vital Signs Temp Pulse Pulse Resp BP Pulse Ox 10/21/21 06:49 36.4 C L 54 L 18 165/84 H 95 10/21/21 04:39 61 10/21/21 03:00 36.6 C 66 18 133/80 96 10/20/21 22:47 36.8 C 64 20 151/83 H 97 Laboratory Results 10/21/21 09:05 10/21/21 09:05
--- NOTE | 2021-10-21 14:19 | Cardiology Progress Note ---
Date of Service October 21, 2021 Assessment & Plan (1) COVID-19 virus infection: (2) Elevated troponin: (3) Hypoxia: (4) Coronary artery disease: (5) Hx of CABG: (6) Thrombocytopenia: (7) Anemia: (8) ESRD on dialysis: Plan: 51-year-old patient with history of coronary artery bypass grafting x5 in 2014 presents with symptoms consistent with COVID-19 infection including cough and hypoxia. Type 2 troponin elevation secondary to COVID-19 infection with hypoxia , end-stage renal disease, in the setting of chronic anemia. Discontinue IV heparin in a.m. 10/22/2021. Repeat CBC in a.m. Due to thrombocytopenia. Recent Lexiscan nuclear stress test performed in June 2021 without perfusion defect to suggest ischemia. His ECG and echocardiogram are stable. Continue aspirin, statin, beta-glen, isosorbide monohydrate and hydralazine as previously ordered. Supplemental oxygen and treatment of COVID-19 infection as per primary service. I will continue to follow patient during hospitalization. Admission and Anticipated Discharge Date Admission Date: October 19, 2021 Subjective Patient seen examined the bedside. Feeling better today. Denies cough or shortness of breath. Denies any chest discomfort overnight. Telemetry reveals sinus bradycardia with heart rate ranging 50-60s beats per minute. No palpitations or lightheadedness. Denies signs/symptoms of GI/ blood loss. Offers no new concerns/complaints. Review of Systems Review of Systems: All systems reviewed & are unremarkable except as noted in Subjective Physical Exam Constitutional: well developed, well nourished and + obese; no acute distress Respiratory: normal respiratory effort; no respiratory distress, no labored breathing and no retractions Auscultation: no crackles, no rales, no rhonchi and no wheezes Cardiovascular: Rate/Rhythm: regular rate and regular rhythm Heart Sounds: normal S1 and normal S2; no murmur Vessels: no JVD and no carotid bruit Gastrointestinal (Abdomen): Inspection/Auscultation: abdomen normal to inspection and normal bowel sounds; abdomen not distended Percussion/Palpation: abdomen soft; abdomen nontender, no guarding and abdomen not rigid Neurologic: CN's II-XI intact bilaterally and moves all extremities; no focal motor deficits Motor/Sensory: no tremor Psychiatric: A+Ox3, euthymic affect Results & Data ([facility]) Vital Signs (Past 12 Hours) Vital Signs Temp Pulse Pulse Resp BP Pulse Ox 10/21/21 12:15 36.5 C 61 18 155/83 H 95 10/21/21 06:49 36.4 C L 54 L 18 165/84 H 95 10/21/21 04:39 61 10/21/21 03:00 36.6 C 66 18 133/80 96
--- NOTE | 2021-10-21 17:44 | Electrocardiogram Report ---
Test Reason : Blood Pressure : / mmHG Vent. Rate : 065 BPM Atrial Rate : 065 BPM P-R Int : 182 ms QRS Dur : 104 ms QT Int : 496 ms P-R-T Axes : 060 020 089 degrees QTc Int : 515 ms Normal sinus rhythm Possible Left atrial enlargement Nonspecific ST and T wave abnormality Prolonged QT Abnormal ECG When compared with ECG of 19-OCT-2021 17:00, No significant change was found Confirmed by Sandeep Mckeon ([id number]) on 10/21/2021 5:43:51 PM Referred By: REFERRED SELF Confirmed By:Sandeep Mckeon
[2021-10-21 19:15] LABS: Partial Thromboplastin Ratio 2.3
[2021-10-21 19:18] LABS: Partial Thromboplastin Time 60.9 Seconds (21.0-31.0)
[2021-10-21] MEDS: CINACALCET HCL 30 MG TAB PO SCH (20:09)
[2021-10-21] MEDS: ASPIRIN 81 MG ECTAB PO SCH (20:09)
[2021-10-22] MEDS ORDERED: COUGH DROP (SUGAR FREE) LOZ 24 LOZ/1 BOX BUCCAL ONE (05:50)
[2021-10-22] MEDS ORDERED: COUGH DROP (SUGAR FREE) LOZ 24 LOZ/1 BOX BUCCAL STA (06:02)
[2021-10-22] MEDS: LEVOTHYROXINE SODIUM 25 MCG TABLET PO SCH (06:32)
[2021-10-22] MEDS ORDERED: SODIUM CHLORIDE 0.9% 1000ML 1,000 ML IV PRN (07:00)
[2021-10-22] MEDS ORDERED: EPOETIN ALFA 10,000 UNITS/ML VIAL IV ONE (07:00)
[2021-10-22] MEDS: PANTOprazole 40 MG TAB PO SCH (08:07)
[2021-10-22] MEDS: TAMSULOSIN HCL 0.4 MG CAP PO SCH (08:08)
[2021-10-22] MEDS: ATORVASTATIN 40 MG TAB PO SCH (08:08)
[2021-10-22] MEDS: SEVELAMER HCL 800 MG TABLET PO SCH ×3 (08:08→18:02)
[2021-10-22] MEDS: FUROSEMIDE 80 MG TAB PO SCH ×2 (08:08→21:11)
[2021-10-22] MEDS: lisinopril 40 MG TAB PO SCH (08:09)
[2021-10-22] MEDS: amLODIPine BESYLATE 5 MG TAB PO SCH (08:09)
[2021-10-22] MEDS: ISOSORBIDE MONO EXTENDED REL 30 MG TABCR PO SCH (08:09)
[2021-10-22] MEDS: guaiFENesin 600 MG TABCR PO SCH ×2 (08:10→21:11)
[2021-10-22] MEDS: hydrALAZINE HCL 25 MG TAB PO SCH ×2 (08:10→21:11)
[2021-10-22] MEDS: carvediloL 25 MG TAB PO SCH ×2 (08:10→21:12)
[2021-10-22] MEDS: dexAMETHasone 6 MG in SYRINGE 0 ML IV SCH (08:10)
[2021-10-22] MEDS: BENZONATATE 100 MG CAPSULE PO SCH ×3 (08:11→21:21)
[2021-10-22] MEDS: INSULIN ASPART PER UNIT SC SCH ×4 (08:20→21:15)
[2021-10-22 08:24] LABS: Hematocrit (blood only) 28.7 % (42-52); Mean Corpuscular Hemoglobin 32.8 pg (25-34); Mean Corpuscular Hgb Conc 34.8 g/dL (32-36); Mean Corpuscular Volume 94.1 fL (80-100); RDW Coefficient of Variation 12.7 % (11.5-14.5); RDW Standard Deviation 43.3 fL (36.4-46.3); Red Blood Count 3.05 M/uL (4.7-6.1); White Blood Count 5.03 K/uL (4.8-10.8)
[2021-10-22 08:38] LABS: Mean Platelet Volume 10.9 fL (7.4-10.4); Platelet Count 91 K/uL (130-400)
[2021-10-22 09:02] LABS: BUN Creatinine Ratio 6.4 (10-20); Calcium 7.8 mg/dl (8.5-10.1); Creatinine Clr Calc Pharmacy 8.4 ml/min; Est GFR (African American) 4.6 ml/min; Potassium 3.9 mmol/L (3.5-5.1)
--- NOTE | 2021-10-22 09:34 | Hospitalist Progress Note ---
Date of Service October 22, 2021 Assessment & Plan (1) Hypoxia: Plan: Secondary to COVID 19 infection CXR c/w multifocal pna, moderate pulm. edema procalcitonin elevated at 0.9 but suspect procalcitonin elevated secondary to renal disease. (2) COVID-19 virus infection: Plan: Remdesivir contraindicated in setting of ESRD. Continue dexamethasone daily. Continue supportive care including antitussives such as scheduled benzonatate and as needed Robitussin-AC. (3) Neutropenia: Plan: Likely related to viral infection. Will be expected to trend up as patient improves clinically. Trend CBC. (4) Elevated troponin: Plan: Patient has ESRD, a chronic history of heart disease and now a COVID-19 infection. ACS considered less likely. Notably patient has no chest pain. Echo obtained -LV systolic function is mildly reduced. EF 45 to 50%. There is moderate concentric LVH. Borderline global hypokinesis with mild hypokinesis of the base and mid inferior wall. There is mild mitral regurg. There is trace tricuspid regurg. The estimated systolic pulmonary pressure is 38 mmHg. Compared to study dated July 2020 in the [facility] medical record, LV EF and regional wall motion unchanged. Patient was started on IV heparin and cardiology was also consulted. IV heparin to stop this morning, October 22 Believed to be secondary to type II troponin elevation, due to hypoxia, ESRD, chronic anemia Recent Lexiscan nuclear stress test performed in June 2021 without perfusion defect to suggest ischemia His ECG and echocardiogram are stable. Continue aspirin, statin, beta-glen, isosorbide monohydrate and hydralazine a s previously ordered. (5) ESRD on dialysis: Plan: Completed his Friday session on day of admission. Consulted nephro. Patient is on a Friday schedule. Continue sevelamer and Sensipar. He is also on an additional phosphate binder that is not on formulary. Encouraged to bring this in from home. (6) Diabetes mellitus, type II: Plan: Last A1c is 5.8 reflecting good control. He reports being a diet controlled diabetic. glucose checks with correction factor due to ongoing steroids. Escalate insulin needs if steroid induced hyperglycemia presents. (7) Hypothyroidism: Plan: Chronic, stable, continue levothyroxine per home management (8) Hypertension: Plan: Slightly elevated on admission which may be related to steroid administration. Continue home regimen and hydralazine as needed. (9) Hx of CABG: (10) Anemia due to end stage renal disease: Plan: Chronic, stable at his baseline. Continue to monitor. (11) DVT prophylaxis: Plan: Heparin drip Full code Disposition- plan to DC home Admission and Anticipated Discharge Date Admission Date: October 19, 2021 Subjective Patient seen for follow-up of COVID-19 pneumonia Currently patient is on room air, since yesterday evening Feeling well overall, and plan for discharge Denies fevers, chills, chest pain, increased shortness of breath, reports some dry cough He will need dialysis today, however he is COVID-positive Troponin elevated, patient was started IV heparin, seen by cardiology, echo obtained, plan to continue IV heparin till today AM Review of Systems Review of Systems: All systems reviewed & are unremarkable except as noted in Subjective Physical Exam Physical Exam: CONSTITUTIONAL: obese M NAD, on RA EYES: normal conjunctivae, no scleral icterus ENT: external ear and nose normal, MMM NECK:supple RESPIRATORY: clear to auscultation bilaterally, no crackles, rales or wheezes, normal respiratory effort CARDIOVASCULAR: regular rate and rhythm, S1 and 2 heard without murmurs, gallops or rubs, no JVD, no peripheral edema GASTROINTESTINAL: soft, nontender, ND, no guarding MUSCULOSKELETAL: strength 5/5 throughout, head is normocephalic and atraumatic, neck supple SKIN: warm and dry, palpable thrill in fistula RUE NEUROLOGIC:Alert oriented answering questions appropriately, no facial asymmetry, speech fluent, moves extremities PSYCHIATRIC: alert cooperative and oriented to person, place and time. Results & Data Results & Data ([facility]) Vital Signs (Past 12 Hours) Vital Signs Temp Pulse Resp BP Pulse Ox 10/22/21 06:28 36.5 C 57 L 19 150/81 H 96 10/22/21 03:54 36.4 C L 60 18 151/79 H 93 10/21/21 23:03 36.5 C 60 18 153/87 H 96 Laboratory Results 10/22/21 10/22/21 10/22/21 Range/Units 07:59 07:20 07:20 WBC 5.03 (4.8-10.8) K/uL RBC 3.05 L (4.7-6.1) M/uL Hgb 10.0 L (14.0-18.0) g/dL Hct 28.7 L (42-52) % MCV 94.1 (80-100) fL MCH 32.8 (25-34) pg MCHC 34.8 (32-36) g/dL RDW Std Deviation 43.3 (36.4-46.3) fL RDW Coeff of Ira 12.7 (11.5-14.5) % Plt Count 91 L (130-400) K/uL MPV 10.9 H (7.4-10.4) fL APTT (21.0-31.0) Seconds PTT Ratio Sodium 129 L (136-145) mmol/L Potassium 3.9 (3.5-5.1) mmol/L Chloride 89 L (98-107) mmol/L Carbon Dioxide 26 (21-32) mmol/L Anion Gap 14.0 H (3-11) BUN 83 H (7-18) mg/dl Creatinine 12.90 H* D (0.6-1.4) mg/dl Est Cr Clr Drug Dosing 8.4 ml/min Est GFR ( Amer) 4.6 ml/min Est GFR (Non-Af Amer) 4.0 ml/min BUN/Creatinine Ratio 6.4 L (10-20) Glucose 200 H (70-99) mg/dl POC Glucose 200 H (70-99) mg/dl Calcium 7.8 L (8.5-10.1) mg/dl Phosphorus (2.5-4.9) mg/dl Magnesium (1.8-2.4) mg/dl 10/21/21 10/21/21 10/21/21 Range/Units 20:17 18:42 16:26 WBC (4.8-10.8) K/uL RBC (4.7-6.1) M/uL Hgb (14.0-18.0) g/dL Hct (42-52) % MCV (80-100) fL MCH (25-34) pg MCHC (32-36) g/dL RDW Std Deviation (36.4-46.3) fL RDW Coeff of Ira (11.5-14.5) % Plt Count (130-400) K/uL MPV (7.4-10.4) fL APTT 60.9 H* (21.0-31.0) Seconds PTT Ratio 2.3 Sodium (136-145) mmol/L Potassium (3.5-5.1) mmol/L Chloride (98-107) mmol/L Carbon Dioxide (21-32) mmol/L Anion Gap (3-11) BUN (7-18) mg/dl Creatinine (0.6-1.4) mg/dl Est Cr Clr Drug Dosing ml/min Est GFR ( Amer) ml/min Est GFR (Non-Af Amer) ml/min BUN/Creatinine Ratio (10-20) Glucose (70-99) mg/dl POC Glucose 259 H 210 H (70-99) mg/dl Calcium (8.5-10.1) mg/dl Phosphorus (2.5-4.9) mg/dl Magnesium (1.8-2.4) mg/dl 10/21/21 10/21/21 10/21/21 Range/Units 12:12 09:05 09:05 WBC (4.8-10.8) K/uL RBC (4.7-6.1) M/uL Hgb (14.0-18.0) g/dL Hct (42-52) % MCV (80-100) fL MCH (25-34) pg MCHC (32-36) g/dL RDW Std Deviation (36.4-46.3) fL RDW Coeff of Ira (11.5-14.5) % Plt Count (130-400) K/uL MPV (7.4-10.4) fL APTT 124.3 H* (21.0-31.0) Seconds PTT Ratio 4.7 Sodium 130 L (136-145) mmol/L Potassium 3.9 (3.5-5.1) mmol/L Chloride 91 L (98-107) mmol/L Carbon Dioxide 28 (21-32) mmol/L Anion Gap 12.0 H (3-11) BUN 65 H D (7-18) mg/dl Creatinine 11.10 H* D (0.6-1.4) mg/dl Est Cr Clr Drug Dosing 9.7 ml/min Est GFR ( Amer) 5.6 ml/min Est GFR (Non-Af Amer) 4.8 ml/min BUN/Creatinine Ratio 5.9 L (10-20) Glucose 187 H (70-99) mg/dl POC Glucose 218 H (70-99) mg/dl Calcium 8.4 L (8.5-10.1) mg/dl Phosphorus 5.3 H (2.5-4.9) mg/dl Magnesium 2.3 (1.8-2.4) mg/dl Medications Administered Current Inpatient Medications Acetaminophen (Acetaminophen 325 Mg Tab) 650 mg PO Q4H PRN PRN Reason: Pain or Fever Stop: 11/18/21 19:47 Amlodipine Besylate (Amlodipine Besylate 5 Mg Tab) 10 mg PO QAM [facility] Stop: 11/19/21 08:59 Last Admin: 10/22/21 08:09 Dose: 10 mg Documented by: Aspirin (Aspirin 81 Mg Ectab) 81 mg PO [facility] Stop: 11/18/21 20:59 Last Admin: 10/21/21 20:09 Dose: 81 mg Documented by: Atorvastatin Calcium (Atorvastatin 40 Mg Tab) 80 mg PO QAM [facility] Stop: 11/19/21 08:59 Last Admin: 10/22/21 08:08 Dose: 80 mg Documented by: Benzonatate (Benzonatate 100 Mg Capsule) 100 mg PO TID [facility] Stop: 11/18/21 20:59 Last Admin: 10/22/21 08:11 Dose: 100 mg Documented by: Carvedilol (Carvedilol 25 Mg Tab) 25 mg PO BID [facility] Stop: 11/18/21 20:59 Last Admin: 10/22/21 08:10 Dose: 25 mg Documented by: Cinacalcet (Cinacalcet Hcl 30 Mg Tab) 30 mg PO [facility] Stop: 11/18/21 20:59 Last Admin: 10/21/21 20:09 Dose: 30 mg Documented by: Dextrose (Dextrose 50% 50 Ml Syringe) 25 - 50 ml IV UD PRN; Protocol PRN Reason: Hypoglycemia Protocol Stop: 11/18/21 21:36 Furosemide (Furosemide 80 Mg Tab) 80 mg PO QPM [facility] Stop: 11/18/21 20:59 Last Admin: 10/21/21 20:09 Dose: 80 mg Documented by: Furosemide (Furosemide 80 Mg Tab) 160 mg PO DAILY [facility] Stop: 11/19/21 08:59 Last Admin: 10/22/21 08:08 Dose: 160 mg Documented by: Glucagon (Glucagon For Inj 1 Mg Vial) 1 mg SQ UD PRN; Protocol PRN Reason: Hypoglycemia Protocol Stop: 11/18/21 21:36 Glucose (Glucose 10 Tabs/Tube) 4 - 8 tabs PO UD PRN; Protocol PRN Reason: Hypoglycemia Protocol Stop: 11/18/21 21:36 Glucose (Glucose 40% Gel 15 Gm Tube) 15 - 30 gm PO UD PRN; Protocol PRN Reason: Hypoglycemia Protocol Stop: 11/18/21 21:36 Guaifenesin (Guaifenesin 600 Mg Tabcr) 600 mg PO Q12 [facility] Stop: 11/19/21 20:59 Last Admin: 10/22/21 08:10 Dose: 600 mg Documented by: Guaifenesin/Codeine Phosphate (Guaifenesin/Codeine 200mg/20mg 10ml Udc) 10 ml PO Q6H PRN PRN Reason: Cough Stop: 11/18/21 19:47 Last Admin: 10/19/21 20:31 Dose: 10 ml Documented by: Hydralazine HCl (Hydralazine Hcl 25 Mg Tab) 25 mg PO BID [facility] Stop: 11/18/21 20:59 Last Admin: 10/22/21 08:10 Dose: 25 mg Documented by: Hydralazine HCl (Hydralazine Hcl 20 Mg/Ml Vial) 10 mg IV Q6H PRN PRN Reason: SBP>180 Stop: 11/18/21 21:44 Dexamethasone 6 mg/ Syringe 1.5 mls @ 1 mls/min IV DAILY [facility] Stop: 11/18/21 18:29 Last Admin: 10/22/21 08:10 Dose: 1 mls/min Documented by: Sodium Chloride (Nss 1000ml) 1,000 mls @ 0 mls/hr IV .Q0M PRN PRN Reason: For Hemodialysis Use ONLY Stop: 10/22/21 12:59 Insulin Aspart (Insulin Aspart Per Unit) 0 units SC ACHS [facility] Stop: 11/19/21 07:29 Last Admin: 10/22/21 08:20 Dose: 1 units Documented by: Isosorbide Mononitrate (Isosorbide [place] Extended Rel 30 Mg Tabcr) 30 mg PO QAM [facility] Stop: 11/19/21 08:59 Last Admin: 10/22/21 08:09 Dose: 30 mg Documented by: Levothyroxine Sodium (Levothyroxine Sodium 25 Mcg Tablet) 25 mcg PO DAILYBB [facility] Stop: 11/19/21 06:29 Last Admin: 10/22/21 06:32 Dose: 25 mcg Documented by: Lisinopril (Lisinopril 40 Mg Tab) 40 mg PO QAM [facility] Stop: 11/19/21 08:59 Last Admin: 10/22/21 08:09 Dose: 40 mg Documented by: Miscellaneous (Carbohydrates For Hypoglycemia ) 15 - 30 gm PO UD PRN PRN Reason: Hypoglycemia Protocol Stop: 11/18/21 21:36 Ondansetron HCl (Ondansetron Inj 2 Mg/Ml 2 Ml Vial) 4 mg IV Q6H PRN PRN Reason: Nausea Stop: 11/18/21 19:47 Pantoprazole Sodium (Pantoprazole 40 Mg Tab) [facility] Stop: 11/19/21 08:59 Last Admin: 10/22/21 08:07 Dose: 40 mg Documented by: Polyethylene Glycol (Polyethylene (Miralax) 17 Gm Pack) 17 gm PO DAILY PRN PRN Reason: Constipation Stop: 11/18/21 19:47 Sevelamer HCl (Sevelamer Hcl 800 Mg Tablet) 1,600 mg PO TIDM [facility] Stop: 11/18/21 19:47 Last Admin: 10/22/21 08:08 Dose: 1,600 mg Documented by: Sevelamer HCl (Sevelamer Hcl 800 Mg Tablet) 800 mg PO TID PRN PRN Reason: SNACKS Stop: 11/18/21 20:08 Tamsulosin HCl (Tamsulosin Hcl 0.4 Mg Cap) 0.4 mg PO [facility] Stop: 11/19/21 08:59 Last Admin: 10/22/21 08:08 Dose: 0.4 mg Documented by:
--- NOTE | 2021-10-22 12:06 | Nephrology Progress Note ---
Date of Service October 22, 2021 Assessment & Plan Admission and Anticipated Discharge Date Admission Date: October 19, 2021 Subjective Assessment & Plan (1) ESRD (end stage renal disease) on dialysis: Plan: had full tx on 10/19, though no UF w/ tx d/t coming in well under target wt w/ decreased po. he may have moderate fluid overload at this time ; chemistries ok Dialysis later today at hospital d/c will need special arrangement for what time time to do dialysis at [facility] d/t covid status//needs to be on cohort shift -daily bmp, cbc (2) COVID-19 virus infection: Plan: -supportive care per primary service -note on HD post d/c as above Subjective No interval clinical events. Denies shortness of breath, diarrhea, issues tolerating p.o. Says feels better Review of Systems Review of Systems: All systems reviewed & are unremarkable except as noted in Subjective Physical Exam Constitutional: well developed, well nourished and cooperative; no acute distress Eyes: EOM intact bilaterally ENMT: Ears: no external ear abnormality Nose: no external nose abnormality Mouth: + dry oral mucous membranes Neck: no nuchal rigidity Respiratory: normal respiratory effort Auscultation: + diminished lung sounds Gastrointestinal (Abdomen): Inspection/Auscultation: normal bowel sounds Percussion/Palpation: abdomen soft; abdomen nontender Musculoskeletal: Extremities: strength 5/5 throughout Skin: no rashes, warm and dry Psychiatric: Orientation: alert and oriented x 3 Results & Data ([facility]) Vital Signs (Past 12 Hours) Vital Signs Temp Pulse Resp BP Pulse Ox 10/22/21 11:44 36.5 C 60 20 148/84 H 92 10/22/21 06:28 36.5 C 57 L 19 150/81 H 96 10/22/21 03:54 36.4 C L 60 18 151/79 H 93
--- NOTE | 2021-10-22 14:07 | Cardiology Progress Note ---
Date of Service October 22, 2021 Assessment & Plan (1) COVID-19 virus infection: (2) Elevated troponin: (3) ESRD (end stage renal disease): Plan: 51-year-old patient with history of coronary artery bypass grafting x5 in 2014 presents with symptoms consistent with COVID-19 infection including cough and hypoxia. Type 2 troponin elevation secondary to COVID-19 infection with hypoxia, end-stage renal disease, in the setting of chronic anemia. Echo with stable findings of mild LV systolic dysfunction unchanged compared to baseline. Continue aspirin, statin, beta-glen, isosorbide monohydrate and hydralazine . Complete course of dexamethasone. Admission and Anticipated Discharge Date Admission Date: October 19, 2021 Subjective Patient seen in cardiology follow up in the isolation [facility], room 2018. Pt currently undergoing HD in his room. Feels well. Pulse ox 92% on room air. Denies subjective fevers or chills, cough, CP, or palpitations. Review of Systems Review of Systems: All systems reviewed & are unremarkable except as noted in HPI & below Physical Exam Physical Exam: Temp Pulse Resp BP Pulse Ox 36.5 C 60 20 148/84 H 92 10/22/21 11:44 10/22/21 11:44 10/22/21 11:44 10/22/21 11:44 10/22/21 11:44 Constitutional: WD/WN, vitals as above Respiratory: normal respiratory effort, lungs clear to auscultation Cardiovascular: Rate/Rhythm: regular rhythm Extremities: no edema Neurologic: PERRL, EOMI, accommodation nl, no face palsy, no dysarthria Results & Data ([facility]) Vital Signs (Past 12 Hours) Vital Signs Temp Pulse Resp BP Pulse Ox 10/22/21 11:44 36.5 C 60 20 148/84 H 92 10/22/21 06:28 36.5 C 57 L 19 150/81 H 96 10/22/21 03:54 36.4 C L 60 18 151/79 H 93
[2021-10-22] MEDS: CINACALCET HCL 30 MG TAB PO SCH (21:11)
[2021-10-22] MEDS: ASPIRIN 81 MG ECTAB PO SCH (21:12)
[2021-10-23] MEDS: LEVOTHYROXINE SODIUM 25 MCG TABLET PO SCH (06:04)
--- NOTE | 2021-10-23 06:49 | Hospitalist Progress Note ---
Date of Service October 23, 2021 Assessment & Plan (1) Hypoxia: Plan: Secondary to COVID 19 infection CXR c/w multifocal pna, moderate pulm. edema procalcitonin elevated at 0.9 but suspect procalcitonin elevated secondary to renal disease. (2) COVID-19 virus infection: Plan: Remdesivir contraindicated in setting of ESRD. Continue dexamethasone daily. Continue supportive care including antitussives such as scheduled benzonatate and as needed Robitussin-AC. (3) Neutropenia: Plan: Likely related to viral infection. Will be expected to trend up as patient improves clinically. Trend CBC. (4) Elevated troponin: Plan: Patient has ESRD, a chronic history of heart disease and now a COVID-19 infection. ACS considered less likely. Notably patient has no chest pain. Echo obtained -LV systolic function is mildly reduced. EF 45 to 50%. There is moderate concentric LVH. Borderline global hypokinesis with mild hypokinesis of the base and mid inferior wall. There is mild mitral regurg. There is trace tricuspid regurg. The estimated systolic pulmonary pressure is 38 mmHg. Compared to study dated July 2020 in the [facility] medical record, LV EF and regional wall motion unchanged. Patient was started on IV heparin and cardiology was also consulted. IV heparin stopped October 22 Believed to be secondary to type II troponin elevation, due to hypoxia, ESRD, chronic anemia Recent Lexiscan nuclear stress test performed in June 2021 without perfusion defect to suggest ischemia His ECG and echocardiogram are stable. Continue aspirin, statin, beta-glen, isosorbide monohydrate and hydralazine as previously ordered. (5) ESRD on dialysis: Plan: Completed his Friday session on day of admission. Consulted nephro. Patient is on a Friday schedule. Continue sevelamer and Sensipar. He is also on an additional phosphate binder that is not on formulary. Encouraged to bring this in from home. (6) Diabetes mellitus, type II: Plan: Last A1c is 5.8 reflecting good control. He reports being a diet controlled diabetic. glucose checks with correction factor due to ongoing steroids. Escalate insulin needs if steroid induced hyperglycemia presents. (7) Hypothyroidism: Plan: Chronic, stable, continue levothyroxine per home management (8) Hypertension: Plan: Slightly elevated on admission which may be related to steroid administration. Continue home regimen and hydralazine as needed. (9) Hx of CABG: (10) Anemia due to end stage renal disease: Plan: Chronic, stable at his baseline. Continue to monitor. (11) DVT prophylaxis: Plan: Heparin drip Full code Disposition- plan to DC home Admission and Anticipated Discharge Date Admission Date: October 19, 2021 Subjective Patient seen for follow-up of COVID-19 pneumonia Currently patient is on room air Feeling well overall Denies fevers, chills, chest pain, increased shortness of breath, reports some dry cough Patient was unable to receive dialysis in his outpatient setting, due to his COVID-positive status, plan to discharge today Review of Systems Review of Systems: All systems reviewed & are unremarkable except as noted in Subjective Physical Exam Physical Exam: CONSTITUTIONAL: obese M NAD, on RA EYES: normal conjunctivae, no scleral icterus ENT: external ear and nose normal, MMM NECK:supple RESPIRATORY: clear to auscultation bilaterally, no crackles, rales or wheezes, normal respiratory effort CARDIOVASCULAR: regular rate and rhythm, S1 and 2 heard without murmurs, gallops or rubs, no JVD, no peripheral edema GASTROINTESTINAL: soft, nontender, ND, no guarding MUSCULOSKELETAL: strength 5/5 throughout, head is normocephalic and atraumatic, neck supple SKIN: warm and dry, palpable thrill in fistula RUE NEUROLOGIC:Alert oriented answering questions appropriately, no facial asymmetry, speech fluent, moves extremities PSYCHIATRIC: alert cooperative and oriented to person, place and time. Results & Data Results & Data ([facility]) Vital Signs (Past 12 Hours) Vital Signs Temp Pulse Pulse Resp BP Pulse Ox 10/23/21 02:32 36.6 C 62 18 168/82 H 96 10/22/21 22:45 68 10/22/21 22:25 36.6 C 70 18 152/70 H 97 10/22/21 19:46 36.5 C 67 18 166/84 H 96 10/22/21 19:05 67 Laboratory Results 10/23/21 10/23/21 10/22/21 Range/Units 07:36 05:56 21:14 Sodium 132 L (136-145) mmol/L Potassium 3.7 (3.5-5.1) mmol/L Chloride 97 L (98-107) mmol/L Carbon Dioxide 24 (21-32) mmol/L Anion Gap 11.0 (3-11) BUN 58 H (7-18) mg/dl Creatinine 9.31 H* D (0.6-1.4) mg/dl Est Cr Clr Drug Dosing 11.4 ml/min Est GFR ( Amer) 6.9 ml/min Est GFR (Non-Af Amer) 5.9 ml/min BUN/Creatinine Ratio 6.3 L (10-20) Glucose 154 H (70-99) mg/dl POC Glucose 146 H 223 H (70-99) mg/dl Calcium 8.6 (8.5-10.1) mg/dl Hep Bs Antigen (Neg) 10/22/21 10/22/21 10/22/21 Range/Units 18:01 11:42 07:24 Sodium (136-145) mmol/L Potassium (3.5-5.1) mmol/L Chloride (98-107) mmol/L Carbon Dioxide (21-32) mmol/L Anion Gap (3-11) BUN (7-18) mg/dl Creatinine (0.6-1.4) mg/dl Est Cr Clr Drug Dosing ml/min Est GFR ( Amer) ml/min Est GFR (Non-Af Amer) ml/min BUN/Creatinine Ratio (10-20) Glucose (70-99) mg/dl POC Glucose 144 H 238 H (70-99) mg/dl Calcium (8.5-10.1) mg/dl Hep Bs Antigen Neg (Neg) Medications Administered Current Inpatient Medications Acetaminophen (Acetaminophen 325 Mg Tab) 650 mg PO Q4H PRN PRN Reason: Pain or Fever Stop: 11/18/21 19:47 Amlodipine Besylate (Amlodipine Besylate 5 Mg Tab) 10 mg PO [facility] Stop: 11/19/21 08:59 Last Admin: 10/22/21 08:09 Dose: 10 mg Documented by: Aspirin (Aspirin 81 Mg Ectab) 81 mg PO [facility] Stop: 11/18/21 20:59 Last Admin: 10/22/21 21:12 Dose: 81 mg Documented by: Atorvastatin Calcium ([facility]vastatin 40 Mg Tab) [facility] [place] [place] Stop: 11/19/21 08:59 Last Admin: 10/22/21 08:08 Dose: 80 mg Documented by: Benzonatate (Benzonatate 100 Mg Capsule) 100 mg PO TID [facility] Stop: 11/18/21 20:59 Last Admin: 10/22/21 21:21 Dose: 100 mg Documented by: Carvedilol (Carvedilol 25 Mg Tab) 25 mg PO BID [facility] Stop: 11/18/21 20:59 Last Admin: 10/22/21 21:12 Dose: 25 mg Documented by: Cinacalcet (Cinacalcet Hcl 30 Mg Tab) 30 mg PO HS [facility] Stop: 11/18/21 20:59 Last Admin: 10/22/21 21:11 Dose: 30 mg Documented by: Dextrose (Dextrose 50% 50 Ml Syringe) 25 - 50 ml IV UD PRN; Protocol PRN Reason: Hypoglycemia Protocol Stop: 11/18/21 21:36 Furosemide (Furosemide 80 Mg Tab) 80 mg PO QPM [facility] Stop: 11/18/21 20:59 Last Admin: 10/22/21 21:11 Dose: 80 mg Documented by: Furosemide (Furosemide 80 Mg Tab) 160 mg PO DAILY [facility] Stop: 11/19/21 08:59 Last Admin: 10/22/21 08:08 Dose: 160 mg Documented by: Glucagon (Glucagon For Inj 1 Mg Vial) 1 mg SQ UD PRN; Protocol PRN Reason: Hypoglycemia Protocol Stop: 11/18/21 21:36 Glucose (Glucose 10 Tabs/Tube) 4 - 8 tabs PO UD PRN; Protocol PRN Reason: Hypoglycemia Protocol Stop: 11/18/21 21:36 Glucose (Glucose 40% Gel 15 Gm Tube) 15 - 30 gm PO UD PRN; Protocol PRN Reason: Hypoglycemia Protocol Stop: 11/18/21 21:36 Guaifenesin (Guaifenesin 600 Mg Tabcr) 600 mg PO Q12 [facility] Stop: 11/19/21 20:59 Last Admin: 10/22/21 21:11 Dose: 600 mg Documented by: Guaifenesin/Codeine Phosphate (Guaifenesin/Codeine 200mg/20mg 10ml Udc) 10 ml PO Q6H PRN PRN Reason: Cough Stop: 11/18/21 19:47 Last Admin: 10/19/21 20:31 Dose: 10 ml Documented by: Hydralazine HCl (Hydralazine Hcl 25 Mg Tab) 25 mg PO BID [facility] Stop: 11/18/21 20:59 Last Admin: 10/22/21 21:11 Dose: 25 mg Documented by: Hydralazine HCl (Hydralazine Hcl 20 Mg/Ml Vial) 10 mg IV Q6H PRN PRN Reason: SBP>180 Stop: 11/18/21 21:44 Dexamethasone 6 mg/ Syringe 1.5 mls @ 1 mls/min IV DAILY [facility] Stop: 11/18/21 18:29 Last Admin: 10/22/21 08:10 Dose: 1 mls/min Documented by: Insulin Aspart (Insulin Aspart Per Unit) [facility] Stop: 11/19/21 07:29 Last Admin: 10/22/21 21:15 Dose: 3 units Documented by: Isosorbide Mononitrate (Isosorbide [place] Extended Rel 30 Mg Tabcr) [facility] [place] Stop: 11/19/21 08:59 Last Admin: 10/22/21 08:09 Dose: 30 mg Documented by: Levothyroxine Sodium (Levothyroxine Sodium 25 Mcg Tablet) 25 mcg PO DAILYBB [facility] Stop: 11/19/21 06:29 Last Admin: 10/23/21 06:04 Dose: 25 mcg Documented by: Lisinopril (Lisinopril 40 Mg Tab) [facility] [place] Stop: 11/19/21 08:59 Last Admin: 10/22/21 08:09 Dose: 40 mg Documented by: Miscellaneous (Carbohydrates For Hypoglycemia ) 15 - 30 gm PO UD PRN PRN Reason: Hypoglycemia Protocol Stop: 11/18/21 21:36 Ondansetron HCl (Ondansetron Inj 2 Mg/Ml 2 Ml Vial) 4 mg IV Q6H PRN PRN Reason: Nausea Stop: 11/18/21 19:47 Pantoprazole Sodium (Pantoprazole 40 Mg Tab) [facility] [place] Stop: 11/19/21 08:59 Last Admin: 10/22/21 08:07 Dose: 40 mg Documented by: Polyethylene Glycol (Polyethylene (Miralax) 17 Gm Pack) 17 gm PO DAILY PRN PRN Reason: Constipation Stop: 11/18/21 19:47 Sevelamer HCl (Sevelamer Hcl 800 Mg Tablet) 1,600 mg PO TIDM [facility] Stop: 11/18/21 19:47 Last Admin: 10/22/21 18:02 Dose: 1,600 mg Documented by: Sevelamer HCl (Sevelamer Hcl 800 Mg Tablet) 800 mg PO TID PRN PRN Reason: SNACKS Stop: 11/18/21 20:08 Tamsulosin HCl (Tamsulosin Hcl 0.4 Mg Cap) 0.4 mg PO [facility] Stop: 11/19/21 08:59 Last Admin: 10/22/21 08:08 Dose: 0.4 mg Documented by:
[2021-10-23 07:29] LABS: BUN Creatinine Ratio 6.3 (10-20); Calcium 8.6 mg/dl (8.5-10.1); Creatinine Clr Calc Pharmacy 11.4 ml/min; Est GFR (African American) 6.9 ml/min; Est GFR (Non-African American) 5.9 ml/min; Potassium 3.7 mmol/L (3.5-5.1)
[2021-10-23] MEDS: amLODIPine BESYLATE 5 MG TAB PO SCH (08:08)
[2021-10-23] MEDS: SEVELAMER HCL 800 MG TABLET PO SCH (08:08)
[2021-10-23] MEDS: ATORVASTATIN 40 MG TAB PO SCH (08:09)
[2021-10-23] MEDS: FUROSEMIDE 80 MG TAB PO SCH (08:10)
[2021-10-23] MEDS: lisinopril 40 MG TAB PO SCH (08:11)
[2021-10-23] MEDS: ISOSORBIDE MONO EXTENDED REL 30 MG TABCR PO SCH (08:11)
[2021-10-23] MEDS: TAMSULOSIN HCL 0.4 MG CAP PO SCH (08:11)
[2021-10-23] MEDS: carvediloL 25 MG TAB PO SCH (08:11)
[2021-10-23] MEDS: PANTOprazole 40 MG TAB PO SCH (08:12)
[2021-10-23] MEDS: hydrALAZINE HCL 25 MG TAB PO SCH (08:12)
[2021-10-23] MEDS: guaiFENesin 600 MG TABCR PO SCH (08:13)
[2021-10-23] MEDS: BENZONATATE 100 MG CAPSULE PO SCH (08:23)
[2021-10-23] MEDS: INSULIN ASPART PER UNIT SC SCH (08:30)
[2021-10-23] MEDS: dexAMETHasone 6 MG in SYRINGE 0 ML IV SCH (10:03)
--- NOTE | 2021-10-23 11:43 | Discharge Summary ---
Date of Service October 23, 2021 Admission HPI Per Admitting Provider 51 yo M with multiple medical problems started having symptoms a few days ago including cough, SOB, difficulty sleeping, post-tussive coughing, no fevers but had chills today at dialysis, no diarrhea, no abdominal pain, no chest pain. Came to the ER from dialysis session today after his brother took the ambulance to the hospital from dialysis, also. Brother is covid positive, and they live together. Admission Exam Per Admitting Provider CONSTITUTIONAL: WNWD, vitals as above, generally well-appearing, NAD, no conversational dyspnea. EYES: normal conjunctivae, no scleral icterus ENT: external ear and nose normal, MMM NECK: trachea midline RESPIRATORY: clear to auscultation bilaterally, no crackles, rales or wheezes, normal respiratory effort CARDIOVASCULAR: regular rate and rhythm, S1 and 2 heard without murmurs, gallops or rubs, no JVD, no peripheral edema GASTROINTESTINAL: soft, nontender, ND, no guarding MUSCULOSKELETAL: strength 5/5 throughout, head is normocephalic and atraumatic, neck supple, normal palpation of chest wall without tenderness SKIN: warm and dry, palpable thrill in fistula RUE NEUROLOGIC: CN 2-12 grossly intact, no sensory deficit, normal cognition, normal speech, no tremor, no gross focal deficits. PSYCHIATRIC: alert cooperative and oriented to person, place and time. Principal Diagnosis COVID-19 infection, hypoxia Elevated troponin End-stage renal disease, on dialysis Discharge Exam CONSTITUTIONAL: obese M NAD, on RA EYES: normal conjunctivae, no scleral icterus ENT: external ear and nose normal, MMM NECK:supple RESPIRATORY: clear to auscultation bilaterally, no crackles, rales or wheezes, normal respiratory effort CARDIOVASCULAR: regular rate and rhythm, S1 and 2 heard without murmurs, gallops or rubs, no JVD, no peripheral edema GASTROINTESTINAL: soft, nontender, ND, no guarding MUSCULOSKELETAL: strength 5/5 throughout, head is normocephalic and atraumatic, neck supple SKIN: warm and dry, palpable thrill in fistula RUE NEUROLOGIC:Alert oriented answering questions appropriately, no facial asymmetry, speech fluent, moves extremities PSYCHIATRIC: alert cooperative and oriented to person, place and time. Discharge Data Allergies Allergy/AdvReac Type Severity Reaction Status Date / Time Penicillins Allergy Severe ANAPHYLAXIS Verified 10/19/21 16:39 Consultations 10/19/21 16:40 ED Decision to Admit Stat 10/19/21 19:48 Consult Nephrology Routine 10/19/21 21:34 Consult Cardiology Routine Hospital Course (1) Hypoxia: Secondary to COVID 19 infection CXR c/w multifocal pna, moderate pulm. edema procalcitonin elevated at 0.9 but suspect procalcitonin elevated secondary to renal disease. (2) COVID-19 virus infection: Remdesivir contraindicated in setting of ESRD. Continue dexamethasone daily. Continue supportive care including antitussives such as scheduled benzonatate and as needed Robitussin-AC. (3) Neutropenia: Likely related to viral infection. Will be expected to trend up as patient improves clinically. Trend CBC. (4) Elevated troponin: Patient has ESRD, a chronic history of heart disease and now a COVID-19 infection. ACS considered less likely. Notably patient has no chest pain. Echo obtained -LV systolic function is mildly reduced. EF 45 to 50%. There is moderate concentric LVH. Borderline global hypokinesis with mild hypokinesis of the base and mid inferior wall. There is mild mitral regurg. There is trace tricuspid regurg. The estimated systolic pulmonary pressure is 38 mmHg. Compared to [facility] dated July [facility], LV EF and regional wall motion unchanged. Patient was started on IV heparin and cardiology was also consulted. IV heparin stopped October 22 AM Believed to be secondary to type II troponin elevation, due to hypoxia, ESRD, chronic anemia Recent Lexiscan nuclear stress test performed in June 2021 without perfusion defect to suggest ischemia His ECG and echocardiogram are stable. Continue aspirin, statin, beta-glen, isosorbide monohydrate and hydralazine as previously ordered. (5) ESRD on dialysis: Completed HD yesterday (10/22) in the hospital. Consulted nephro. Patient is on a Friday schedule. Continue sevelamer and Sensipar. He is also on an additional phosphate binder that is not on formulary. Encouraged to bring this in from home. (6) Diabetes mellitus, type II: Last A1c is 5.8 reflecting good control. He reports being a diet controlled diabetic. glucose checks with correction factor due to ongoing steroids. Escalate insulin needs if steroid induced hyperglycemia presents. (7) Hypothyroidism: Chronic, stable, continue levothyroxine per home management (8) Hypertension: Slightly elevated on admission which may be related to steroid administration. Continue home regimen and hydralazine as needed. (9) Hx of CABG: (10) Anemia due to end stage renal disease: Chronic, stable at his baseline. Continue to monitor. (11) DVT prophylaxis: Disposition- plan to DC home Total Time Total Time Spent Total Time Spent (In Minutes): 40 Discharge Plan Discharge Items Patient Disposition: Home - Self-Care Reason For Visit: COVID SYMPTOMS, COUGHING Discharge Diagnosis: COVID-19 infection, hypoxia Elevated troponin End-stage renal disease, on dialysis Condition on Discharge: Good Activity: Per Instructions section Non-emergency contact: Primary Care Provider Call non-emergency contact if: you have any medication questions and your symptoms worsen Follow-up/Referrals: Dalton Marcelino MD [Primary Care Provider] - (Date & Time 10/25/2021 11:00 AM Provider Dalton Marcelino III, MD Department [facility] PLEASE NOTE THAT THIS IS A TELEHEALTH VIDEO APPOINTMENT. PLEASE FOLLOW THE INSTRUCTIONS PROVIDED IN YOUR EMAIL. IF YOU HAVE ANY QUESTIONS REGARDING THIS APPOINTMENT, PLEASE CALL ) Diet: Dialysis Renal and Heart Healthy Addtl Attending Provider Instructions: Follow up with your primary care physician within 1 to 2 weeks. The appointment was scheduled for you for October 25. If this does not work for you, please reschedule. Take dexamethasone (steroid), as prescribed, for next couple of days. Recommend to use incentive spirometer, and guaifenesin/Mucinex for at least 1 more week. You can also use Tessalon Perles for cough, as needed. 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 You should restrict activities outside your home, except for getting medical care. Do not go to work, school, or public areas. Avoid using public transportation, ride-sharing, or taxis. Separate yourself from other people and animals in your home People: As much as possible, you should stay in a specific room and away from other people in your home. Also, you should use a separate bathroom, if available. Animals: You should restrict contact with pets and other animals while you are sick with COVID-19, just like you would around other people. Although there have not been reports of pets or other animals becoming sick with COVID-19, it is still recommended that people sick with COVID-19 limit contact with animals until more information is known about the virus. When possible, have another member of your household care for your animals while you are sick. If you are sick with COVID-19, avoid contact with your pet, including petting, snuggling, being kissed or licked, and sharing food. If you must care for your pet or be around animals while you are sick, wash your hands before and after you interact with pets and wear a face mask. Call ahead before visiting your doctor If you have a medical appointment, call the healthcare provider and tell them that you have or may have COVID-19. This will help the healthcare providers office take steps to keep other people from getting infected or exposed. Wear a face mask You should wear a face mask when you are around other people (e.g., sharing a room or vehicle) or pets and before you enter a healthcare providers office. If you are not able to wear a face mask (for example, because it causes trouble breathing), then people who live with you should not stay in the same room with you, or they should wear a face mask if they enter your room. Cover your coughs and sneezes Cover your mouth and nose with a tissue when you cough or sneeze. Throw used tissues in a lined trash can. Immediately wash your hands with soap and water for at least 20 seconds or, if soap and water are not available, clean your hands with an alcohol-based hand senior ui ux developer that contains at least 60% alcohol. Clean your hands often Wash your hands often with soap and water for at least 20 seconds, especially after blowing your nose, coughing, or sneezing; going to the bathroom; and before eating or preparing food. If soap and water are not readily available, use an alcohol-based hand senior ui ux developer with at least 60% alcohol, covering all surfaces of your hands and rubbing them together until they feel dry. Soap and water are the best option if hands are visibly dirty. Avoid touching your eyes, nose, and mouth with unwashed hands. Avoid sharing personal household items You should not share dishes, drinking glasses, cups, eating utensils, towels, or bedding with other people or pets in your home. After using these items, they should be washed thoroughly with soap and water. Clean all high-touch surfaces everyday High touch surfaces include counters, tabletops, doorknobs, bathroom fixtures, toilets, phones, keyboards, tablets, and bedside tables. Also, clean any surfaces that may have blood, stool, or body fluids on them. Use a household cleaning spray or wipe, according to the label instructions. Labels contain instructions for safe and effective use of the cleaning product including precautions you should take when applying the product, such as wearing gloves and making sure you have good ventilation during use of the product. Monitor your symptoms Seek prompt medical attention if your illness is worsening (e.g., difficulty breathing).Beforeseeking care, call your healthcare provider and tell them that you have, or are being evaluated for, COVID-19. Put on a face mask before you enter the facility. These steps will help the healthcare providers office to keep other people in the office or waiting room from getting infected or exposed. Ask your healthcare provider to call the local or state health department. Persons who are placed under active monitoring or facilitated self- monitoring should follow instructions provided by their local health department or occupational health professionals, as appropriate. When working with your local health department check their available hours. If you have a medical emergency and need to call 911, notify the dispatch personnel that you have, or are being evaluated for COVID-19. If possible, put on a face mask before emergency medical services arrive. Discontinuing home isolation Patients with confirmed COVID-19 should remain under home isolation precautions until the risk of secondary transmission to others is thought to be low. The decision to discontinue home isolation precautions should be made on a [id number]-xp-ycip basis, in consultation with healthcare providers and state and local health departments. Coronavirus disease 2019 (COVID-19) is a virus that causes a respiratory illness. It is caused by a coronavirus called 2019 novel coronavirus (2019- nCoV). There are many types of coronavirus. Coronaviruses are a very common cause of bronchitis. They may sometimes cause lung infection(pneumonia). Symptoms can range from mild to severe respiratory illness. These viruses are also foundin some animals. COVID-19 was first found in people in [facility], in late 2019. In 2020, several cases of COVID-19 have been confirmed in the [place] Public health officials are working to find the source. How the virus spreads is not yet fully known. It may be spread through droplets of fluid that a person coughs or sneezes into the air. It may be spread if you touch a surface with virus on it, such as a handle or object, and then touch your mouth. What are the symptoms of COVID-19? Some people have no symptoms or mild symptoms. Symptoms may appear 2 to 14 days after contact with the virus. Symptoms can include: Fever Coughing Trouble breathing What are possible complications from COVID-19? In many cases, this virus can cause infection (pneumonia) in both lungs. In some cases, this can cause . How is COVID-19 diagnosed? Your healthcare provider will ask about your symptoms. He or she will also ask about your recent travel and contact with sick people. Testing for the virus is only done through the CDC. If yourhealthcare provider thinks you may have COVID- 19, he or she will work with your local health department and the CDC on test ing. Follow all instructions from your healthcare provider. COVID-19 is diagnosed by: Nasal and throat swab. A cotton-tipped swab is wiped inside your nose or throat. This is done to check for viruses in your nasal mucus. Sputum culture. A small sample of mucus coughed from your lungs (sputum) is collected if you have a cough. It is checked for the virus. How is COVID-19 treated? There is currently no medicine to treat the virus. Treatment is done to help your body while it fights the virus. This is known as supportive care. Supportive care may include: Pain medicine. These include acetaminophen and ibuprofen. They are used to help ease pain and reduce fever. Bed rest. This helps your body fight the illness. For severe illness, you may need to stay in the hospital. Care during severe illness may include: IV (intravenous) fluids.These are given through a vein to help keep your body hydrated. Oxygen. Supplemental oxygen or ventilation with a breathing machine (ventilator) may be given. This is done to keep enough oxygen in your body. Are you at risk for COVID-19? If youve been to a place where people have been sick with this virus, you are at risk for infection. You are at risk if you: Recently traveled to an affected area Had contact with a sick person who recently traveled to this area Had contact with a person who was diagnosed with COVID-19 How can COVID-19 be prevented? There is no vaccine yet. The best prevention is to not have contact with the virus. The CDC advises that people should not travel to areas where there are COVID-19 outbreaks right now for any reason that is not urgent. To help prevent spreading the infection, wash your hands often, or use an alcohol-basedhand senior ui ux developer. If you are in an area with COVID-19: Wash your hands often. Or use an alcohol-based hand senior ui ux developer often. Only touch your eyes, nose, or mouth with clean hands. Dont have contact with people who are sick. Follow local instructions about being in public. For example, you may be told to not use public transport for a period of time. Stay away from markets that have live or animals. Wash your hands after touching any animals. Don't touch animals that may be sick. Dont share eating or drinking tools with sick people. Dont kiss someone who is sick. Clean surfaces often with disinfectant. If you were in an area with COVID-19 in the last 14 days: Call your healthcare provider. He or she can talk with local health staff to see what action may be needed. Follow all instructions from your provider. Take your temperature every morning and evening for at least 14 days. This is to check for fever. Keep a record of the readings. Keep watch for symptoms of the virus. Tell your provider right away if you have symptoms. If you were in an area with COVID-19 and have a fever or other symptoms: Dont panic. Keep in mind that other illnesses can cause similar symptoms. Stay away from work, school, and public places. Limit physical contact with family members. Don't kiss anyone or share eating or drinking utensils. Clean surfaces you touch with disinfectant. This is to help prevent the virus from spreading. Call your healthcare provider. Explain that you have been exposed to COVID-19 and have symptoms. Do this before going to any hospital. Wait for instructions. Keep in mind that healthcare staff may wear protective equipment such as masks, gowns, gloves, and eye protection. You may be put in a separate room. This is to prevent the possible virus from spreading. Tell the healthcare staff about recent travel. This includes local travel on public transport. Staff may need to find other people you have been in contact with. Follow all instructions the healthcare staff give you. If you have been diagnosed with COVID-19 Follow all instructions from your healthcare provider. Dont leave your home, except to get medical care. Call your healthcare providers office before going. They can prepare and give you instructions. This will help prevent the virus from spreading. Dont go to work, school, or public areas. Dont use public transport or taxis. Stay away from other people in your home. Have them wear face masks around you. Dont share household items or food. Wear a face mask if you can. This includes at home or in a medical facility. Cover your face with a tissue when you cough or sneeze. Throw the tissue away. Wash your hands. Wash your hands often. Caregivers should: Follow all instructions from healthcare staff. Wear a face mask and protective clothing as advised. Wash hands often. Keep track of the sick persons symptoms. Clean surfaces, fabrics, and laundry thoroughly. Keep other people away from the sick person. When to call your healthcare provider Call your healthcare provider: If youve recently traveled and have symptoms If you have been diagnosed with COVID-19 and your symptoms are worse To learn more To find out more about COVID-19, visit the CDC website at www.cdc.gov/coronavirus/2019-ncov/index.html. [employer]. [address] [place], [place] [address]. All rights reserved. This information is not intended as a substitute for professional medical care. Always follow your healthcare professional's instructions. This information has been adapted from [employer] Pending Studies at Discharge: No Stand-Alone Forms: [employer], Smoking Cessation Medications and DC Order Prescriptions: New benzonatate 100 mg Capsule 100 mg PO TID PRN (Reason: cough) Qty: 14 RF: 0 guaifenesin [Mucinex] 600 mg Tablet Extended Release 12hr 600 mg PO Q12 Qty: 10 RF: 0 dexamethasone 6 mg tablet 6 mg PO DAILY Qty: 5 RF: 0 Continued levothyroxine 25 mcg Tablet 25 mcg PO DAILYBB Qty: 0 RF: 0 diphenhydramine HCl [Benadryl] 25 mg Capsule 25 mg PO DAILY PRN (Reason: Allergic Reaction) Qty: 0 RF: 0 sevelamer carbonate [Renvela] 800 mg Tablet 800 - 1,600 mg PO DIRECTED Qty: 0 RF: 0 isosorbide mononitrate 30 mg Tablet Extended Release 24 Hr 30 mg PO QAM Qty: 0 RF: 0 furosemide 80 mg Tablet 80 - 160 mg PO AMPM Qty: 0 RF: 0 tamsulosin 0.4 mg Capsule 0.4 mg PO QAM Qty: 0 RF: 0 pantoprazole [Protonix] 40 mg Tablet,Delayed Release (Dr/Ec) 40 mg PO QAM RF: 0 lisinopril 40 mg Tablet 40 mg PO QAM RF: 0 carvedilol 25 mg tablet 25 mg PO BID RF: 0 aspirin 81 mg Tablet,Delayed Release (Dr/Ec) 81 mg PO HS RF: 0 atorvastatin 80 mg tablet 80 mg PO QAM RF: 0 amlodipine 10 mg tablet 10 mg PO QAM RF: 0 cinacalcet [Sensipar] 30 mg Tablet 30 mg PO HS RF: 0 hydralazine 25 mg Tablet 25 mg PO BID RF: 0 Velphoro 500 mg Tablet,Chewable 500 mg PO TIDM RF: 0 Discharge Orders: Discharge Order (Routine); Ordered 10/23/21 Ordered By: Dennis Smith Admission Data Admit Date/Time: 10/19/21 21:24 Attending Provider: Dennis Smith Admit Provider: Dori Bermudez Primary Care Provider: Dalton Marcelino Other Providers: Kacey Roberson ; Dori Bermudez ; Deep Ro Other Interventions: Discharge Summary Assessment (RN) Last Done: 10/23/21 10:13
[2021-10-24] MEDS ORDERED: EPOETIN ALFA 10,000 UNITS/ML VIAL IV ONE (07:00)
[2021-10-24] MEDS ORDERED: SODIUM CHLORIDE 0.9% 1000ML 1,000 ML IV PRN (07:00)
== END 2021-10-23 11:09 | disposition home or self-care (01) | DRG 177 ==
LOC: EDINP 14:40 → ED 14:40 → EDINP 19:46 → SUATTDRO 21:24 → 2S 23:05 → 2W 10-22 18:48

== ENCOUNTER 2022-05-11 19:51 | Inpatient (IN) ==
[2022-05-11] MEDS ORDERED: amLODIPine BESYLATE 5 MG TAB PO ONE (21:06)
[2022-05-11 21:07] LABS: Basophils # (auto) 0.03 K/uL (0-0.2); Basophils % (auto) 0.7 %; Eosinophils # (auto) 0.13 K/uL (0-0.50); Eosinophils % (auto) 2.8 %; Hematocrit (blood only) 28.6 % (40.1-51.0); Lymphocytes # (auto) 0.82 K/uL (1.2-3.4); Lymphocytes % (auto) 17.9 %; Mean Corpuscular Hemoglobin 33.7 pg (25.0-34.0); Mean Corpuscular Volume 96.3 fL (80.0-100.0); Mean Platelet Volume 10.2 fL (9.4-12.4); Monocytes % (auto) 8.7 %; Neutrophils # (auto) 3.21 K/uL (1.4-6.5); Neutrophils % (auto) 69.9 %; Platelet Count 102 K/uL (130-400); RDW Coefficient of Variation 13.2 % (11.5-14.5); RDW Standard Deviation 46.7 fL (36.4-46.3); Red Blood Count 2.97 M/uL (4.63-6.08); White Blood Count 4.59 K/ul (4.8-10.8)
--- NOTE | 2022-05-11 21:27 | Emergency Department Note ---
Impression & Plan SOB (shortness of breath), Anemia, Renal failure, Fluid overload ED Provider Note NAME: JASPER VINCENT JR AGE: 51 SEX: M : 1970 ARRIVES VIA: Walk-In INFORMANT: [Patient] ED PROVIDER(S): [Vel Hopper MD] CHIEF COMPLAINT: Illness, cannot sleep, short of breath HISTORY OF PRESENT ILLNESS: The patient is a 51-year-old male who states that for 5 days, he has not been able to sleep. He goes to fall asleep and wakes up suddenly short of breath and gasping for air. He feels like he is choking. The patient states that he was told once before that he might have sleep apnea although, when he was tested, he was not prescribed a CPAP machine. Patient states that he is a bit anxious about things because he is waiting for a kidney transplant phone call. He wond ers if anxiety is part of the problem. The patient is out of his amlodipine. He has not taken it in 4 days. He is working with his doctors office and pharmacy to get a new prescription. There has been no fever. No chest pain. No vomiting or diarrhea. No urinary complaints. The patient states that 1 time before when he had this issue he was fluid overloaded. He states that he was told that he had CHF. REVIEW OF SYSTEMS: See HPI for pertinent positives and negatives. A total of ten systems were reviewed and were otherwise negative. PMHx/PSHx: See Below SOCIAL HISTORY: See Below. PHYSICAL EXAM: GENERAL: Patient is in no acute distress. HEENT: No acute trauma, normocephalic atraumatic, mucous membranes moist, no nasal congestion, no scleral icterus. NECK: No stridor, no adenopathy, no meningismus, trachea is midline. LUNGS: Clear to auscultation bilaterally, no wheeze, no rhonchi, breath sounds equal. HEART: Without murmurs gallops or rubs, regular rate and rhythm. ABDOMEN: Soft, nontender, bowel sounds positive, no peritonitis. EXTREMITIES: No cyanosis, moderate bilateral pedal edema, full range of motion of all the joints without pain or difficulty, no signs for acute trauma. NEUROLOGIC: Oriented x 3, no acute motor or sensory deficits, no focal weakness. SKIN: No rash, no jaundice, no diaphoresis. DIFFERENTIAL DIAGNOSIS: Electrolyte imbalance, CHF, pneumonia, anemia, sleep apnea, renal or liver failure, dysrhythmia, aspiration, among others. EMERGENCY DEPARTMENT COURSE/PROCEDURES: ECG: Indication was shortness of breath. The ECG shows a sinus rhythm with PVCs. The rate is 79. There is an inverted T wave in aVL. No ST elevation. QTc is 486. Compared to an ECG from 12 April 2022, PVCs are now present. Continuous Cardiac Monitoring: An order was placed for continuous cardiac monitoring. The monitor shows a rate of 82 with normal sinus rhythm. MEDICAL DECISION MAKING: There is no leukocytosis. The patient is anemic with a hemoglobin of 10, this is baseline for him. Platelet count slightly low at 102. There is evidence for renal failure with a creatinine of 8.86. This is within the patient's typical range. No worrisome liver enzyme elevation. ECG shows a sinus rhythm with a PVC, no ischemia. Cardiac enzyme testing x1 is not consistent with acute cardiac injury. Patient appeared to be in a euthyroid state. BNP was elevated consistent with fluid overload. Chest x-ray shows CHF. COVID test returned negative. The patient was given his typical dose of oral amlodipine, 10 mg. He had missed this medication for the last 4 days. He was given 80 milligrams of IV Lasix to help with diuresis. The patient presents with difficulty sleeping and some gasping for air when he is trying to sleep. He has been short of breath. He appears to be fluid overloaded and in CHF. I suspect this is why he cannot sleep or catch his breath. With his renal disease, with the fluid overload, with his complaints, I do think a hospital stay is warranted. I spoke to the patient and case management. The on-call hospitalist was consulted. Past Med/Surg History Medical History Anemia due to end stage renal disease CAD (coronary artery disease) s/p CABG in 2013 Congestive heart failure Combined systolic and diastolic, compensated. Echo 2018 showed EF 40-45%. Prior to CABG EF was 30-34%. Diabetes mellitus, type 2 diet controlled Diabetic neuropathy Diabetic retinopathy BOTH EYES OPERATED ON Encounter for pre-operative examination ESRD (end stage renal disease) on dialysis 3xwk, m,w,f at [facility] Follows with dr. chaudhry Hyperlipidemia Hypertension Hypothyroidism Ischemic cardiomyopathy Morbid obesity with BMI of 40.0-44.9, adult Myocardial Infarction NSTEMI 02/2014--FOLLOWS W DR. CAMACHO Osteoarthritis Peripheral neuropathy Thrombocytopenia Chronic. Surgical History Fistula PLACED IN L WRIST H/O eye surgery RT/LT History of cardiac cath 02/2014--NO STENTS History of coronary artery bypass graft QUADRIPLE BYPASS @ [facility] [place] 02/2014. History of vascular access device permacath insertion--no longer has Hx of hernia repair abdominal hernia and removed PD catheter due to infection 06/2018 S/P arteriovenous (AV) fistula repair x2--recently in 05/31/2021 @ [facility], prior to that 04/18/20 @ [facility] with Dr. 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 Required: No Beliefs That Will Affect Care: None marital status: Single Current Living Situation: Family Current Living Situation Comment: Brother DALE current occupational status: disabled How many Children do You have: 0 Feels Safe at Home: Yes Assistive Devices: None Allergies Allergies Allergy/AdvReac Type Severity Reaction Status Date / Time Penicillins Allergy Severe ANAPHYLAXIS Verified 10/19/21 16:39 Home Meds Home Medications Medication Instructions Recorded Confirmed levothyroxine 25 mcg tablet 25 mcg PO DAILYBB ##0 11/02/15 10/19/21 diphenhydramine HCl 25 mg capsule 25 mg PO DAILY PRN Allergic 04/23/16 10/19/21 (Benadryl) Reaction ##0 sevelamer carbonate 800 mg tablet 800 - 1,600 mg PO DIRECTED ##0 08/23/16 10/19/21 (Renvela) isosorbide mononitrate 30 mg 30 mg PO QAM #0 tabs 11/09/17 10/19/21 tablet,extended release 24 hr furosemide 80 mg tablet 80 - 160 mg PO AMPM #0 tabs 03/30/18 10/19/21 tamsulosin 0.4 mg capsule 0.4 mg PO QAM ##0 04/25/18 10/19/21 pantoprazole 40 mg tablet,delayed 40 mg PO QAM 06/16/18 10/19/21 release (Protonix) carvedilol 25 mg tablet 25 mg PO BID 02/21/20 10/19/21 lisinopril 40 mg tablet 40 mg PO QAM 02/21/20 10/19/21 amlodipine 10 mg tablet 10 mg PO QAM 05/11/21 10/19/21 aspirin 81 mg tablet,delayed 81 mg PO HS 05/11/21 10/19/21 release atorvastatin 80 mg tablet 80 mg PO QAM 05/11/21 10/19/21 cinacalcet 30 mg tablet (Sensipar) 30 mg PO HS 05/11/21 10/19/21 hydralazine 25 mg tablet 25 mg PO BID 08/21/21 10/19/21 sucroferric oxyhydroxide 500 mg 500 mg PO TIDM 08/21/21 10/19/21 chewable tablet (Velphoro) Previous Rx's Medication Instructions Recorded benzonatate 100 mg capsule 100 mg PO TID PRN cough #14 caps 10/22/21 dexamethasone 6 mg tablet 6 mg PO DAILY #5 tabs 10/22/21 guaifenesin 600 mg tablet, 600 mg PO Q12 #10 tabs 10/22/21 extended release 12 hr (Mucinex) Results & Data (ED) Vital Signs Vital Signs - 24 hr 05/11/22 19:53 05/11/22 21:32 Temperature 36.7 C Temperature Source Temporal Artery Scan Pulse Rate 82 Pulse Rate [Finger] 74 Respiratory Rate 18 20 Respiratory Effort / Characteristics Non-Labored Non-Labored Spontaneous Respiratory Depth Normal Normal Blood Pressure 185/91 H Blood Pressure [Left Arm] 186/94 H Blood Pressure Mean 122 Blood Pressure Mean [Left Arm] 124 Pulse Oximetry 96 96 Oxygen Delivery Method Room Air Room Air Sepsis Recent Fever Within 48 Hours No Sepsis New/Unexplained Change in Mental Status No Sepsis Action Taken by Nursing No Action Required Home Medications Current Medication List: was personally reviewed by me Laboratory Data Attestation: I reviewed the patient's lab results. Result diagrams: 05/11/22 20:58 05/11/22 20:58 Lab Results 05/11/22 05/11/22 05/11/22 Range/Units 20:58 20:58 20:58 WBC 4.59 L (4.8-10.8) K/ul RBC 2.97 L (4.63-6.08) M/uL Hgb 10.0 L (14.0-18.0) g/dl Hct 28.6 L (40.1-51.0) % MCV 96.3 (80.0-100.0) fL MCH 33.7 (25.0-34.0) pg MCHC 35.0 (32.0-36.0) g/dL RDW Std Deviation 46.7 H (36.4-46.3) fL RDW Coeff of Ira 13.2 (11.5-14.5) % Plt Count 102 L (130-400) K/uL MPV 10.2 (9.4-12.4) fL Immature Gran % (Auto) 0.0 % Neut % (Auto) 69.9 % Lymph % (Auto) 17.9 % Trigg % (Auto) 8.7 % Eos % (Auto) 2.8 % Baso % (Auto) 0.7 % Neut # (Auto) 3.21 (1.4-6.5) K/uL Lymph # (Auto) 0.82 L (1.2-3.4) K/uL Trigg # (Auto) 0.40 (0.24-0.82) K/uL Eos # (Auto) 0.13 (0-0.50) K/uL Baso # (Auto) 0.03 (0-0.2) K/uL Immature Gran # (Auto) 0.00 (0.00-0.02) K/uL Sodium 139 (136-145) mmol/L Potassium 4.4 (3.5-5.1) mmol/L Chloride 100 (98-107) mmol/L Carbon Dioxide 29 (21-32) mmol/L Anion Gap 10 (3-11) BUN 39 H (6-23) mg/dl Creatinine 8.86 H* (0.6-1.4) mg/dl Est Cr Clr Drug Dosing 12.1 ml/min Est GFR ( Amer) 7.3 ml/min Est GFR (Non-Af Amer) 6.3 ml/min BUN/Creatinine Ratio 4.4 L (10-20) Glucose 148 H (70-99(Fasting)) mg/dl Calcium 9.1 (8.5-10.1) mg/dl Magnesium 2.3 (1.7-2.4) mg/dl Total Bilirubin 1.0 (0.2-1.0) mg/dl AST 15 (13-39) U/L ALT 11 (7-52) U/L Alkaline Phosphatase 104 (34-104) U/L Troponin I High Sens 14.8 (0-20) pg/ml B-Natriuretic Peptide (0-100) pg/ml Total Protein 7.3 (6.0-8.3) gm/dl Albumin 4.6 (3.4-5.0) gm/dl Globulin 2.7 (2.5-4.0) gm/dl Albumin/Globulin Ratio 1.7 (0.9-2) TSH 4.088 (0.300-4.500) uIu/ml SARS-CoV-2, RNA, NAAT (NEGATIVE) 05/11/22 05/11/22 Range/Units 21:31 21:41 WBC (4.8-10.8) K/ul RBC (4.63-6.08) M/uL Hgb (14.0-18.0) g/dl Hct (40.1-51.0) % MCV (80.0-100.0) fL MCH (25.0-34.0) pg MCHC (32.0-36.0) g/dL RDW Std Deviation (36.4-46.3) fL RDW Coeff of Ira (11.5-14.5) % Plt Count (130-400) K/uL MPV (9.4-12.4) fL Immature Gran % (Auto) % Neut % (Auto) % Lymph % (Auto) % Trigg % (Auto) % Eos % (Auto) % Baso % (Auto) % Neut # (Auto) (1.4-6.5) K/uL Lymph # (Auto) (1.2-3.4) K/uL Trigg # (Auto) (0.24-0.82) K/uL Eos # (Auto) (0-0.50) K/uL Baso # (Auto) (0-0.2) K/uL Immature Gran # (Auto) (0.00-0.02) K/uL Sodium (136-145) mmol/L Potassium (3.5-5.1) mmol/L Chloride (98-107) mmol/L Carbon Dioxide (21-32) mmol/L Anion Gap (3-11) BUN (6-23) mg/dl Creatinine (0.6-1.4) mg/dl Est Cr Clr Drug Dosing ml/min Est GFR ( Amer) ml/min Est GFR (Non-Af Amer) ml/min BUN/Creatinine Ratio (10-20) Glucose (70-99(Fasting)) mg/dl Calcium (8.5-10.1) mg/dl Magnesium (1.7-2.4) mg/dl Total Bilirubin (0.2-1.0) mg/dl AST (13-39) U/L ALT (7-52) U/L Alkaline Phosphatase (34-104) U/L Troponin I High Sens (0-20) pg/ml B-Natriuretic Peptide 1355 H (0-100) pg/ml Total Protein (6.0-8.3) gm/dl Albumin (3.4-5.0) gm/dl Globulin (2.5-4.0) gm/dl Albumin/Globulin Ratio (0.9-2) TSH (0.300-4.500) uIu/ml SARS-CoV-2, RNA, NAAT NEGATIVE (NEGATIVE) Administered Medications Discontinued Medications Amlodipine Besylate (Amlodipine Besylate 5 Mg Tab) 10 mg PO NOW ONE Stop: 05/11/22 21:07 Last Admin: 05/11/22 21:09 Dose: 10 mg Documented By: JOEL Imaging Data Attestation: I personally reviewed and interpreted this imaging study as follows: My Impression: Chest x-ray: Per my review, CHF is present. There is no pneumonia or pneumothorax. Discharge Plan Visit Data Chief Complaint: Illness Stated Complaint: CANNOT SLEEP ED Provider: Vel Hopper Discharge Problem: SOB (shortness of breath), Anemia, Renal failure, Fluid overload Patient Disposition: Admitted As Inpatient Condition: Fair Forms Stand Alone Forms: My [facility] Prescriptions Prescriptions: No Action levothyroxine 25 mcg Tablet 25 mcg PO DAILYBB Qty: 0 diphenhydramine HCl [Benadryl] 25 mg Capsule 25 mg PO DAILY PRN (Reason: Allergic Reaction) Qty: 0 sevelamer carbonate [Renvela] 800 mg Tablet 800 - 1,600 mg PO DIRECTED Qty: 0 Label Comments: TAKE 5 TABLETS WIH MEALS Rx Instructions: Take 1600mg with meals Take 800mg with snacks isosorbide mononitrate 30 mg Tablet Extended Release 24 Hr 30 mg PO QAM Qty: 0 furosemide 80 mg Tablet 80 - 160 mg PO AMPM Qty: 0 Rx Instructions: Take 160mg in the AM Take 80mg in the PM tamsulosin 0.4 mg Capsule 0.4 mg PO QAM Qty: 0 pantoprazole [Protonix] 40 mg Tablet,Delayed Release (Dr/Ec) 40 mg PO QAM lisinopril 40 mg Tablet 40 mg PO QAM carvedilol 25 mg tablet 25 mg PO BID aspirin 81 mg Tablet,Delayed Release (Dr/Ec) 81 mg PO HS atorvastatin 80 mg tablet 80 mg PO QAM amlodipine 10 mg tablet 10 mg PO QAM cinacalcet [Sensipar] 30 mg Tablet 30 mg PO HS hydralazine 25 mg Tablet 25 mg PO BID Velphoro 500 mg Tablet,Chewable 500 mg PO TIDM benzonatate 100 mg Capsule 100 mg PO TID PRN (Reason: cough) Qty: 14 0RF guaifenesin [Mucinex] 600 mg Tablet Extended Release 12hr 600 mg PO Q12 Qty: 10 0RF dexamethasone 6 mg tablet 6 mg PO DAILY Qty: 5 0RF Referrals Referrals: Dalton Marcelino MD [Primary Care Provider] -
[2022-05-11 21:36] LABS: Albumin Globulin Ratio 1.7 (0.9-2); Albumin Level 4.6 gm/dl (3.4-5.0); BUN Creatinine Ratio 4.4 (10-20); Calcium 9.1 mg/dl (8.5-10.1); Creatinine Clr Calc Pharmacy 12.1 ml/min; Est GFR (African American) 7.3 ml/min; Est GFR (Non-African American) 6.3 ml/min; Globulin 2.7 gm/dl (2.5-4.0); Magnesium 2.3 mg/dl (1.7-2.4); Potassium 4.4 mmol/L (3.5-5.1); Total Protein 7.3 gm/dl (6.0-8.3)
[2022-05-11] MEDS ORDERED: FUROSEMIDE 40 MG/4 ML VIAL IV ONE (22:15)
[2022-05-11 22:18] LABS: Troponin I High Sensitivity 14.8 pg/ml (0-20)
[2022-05-11 23:08] LABS: Partial Thromboplastin Time 26.2 Seconds (21.0-31.0)
[2022-05-11] MEDS ORDERED: hydrALAZINE HCL 25 MG TAB PO STA (23:35)
--- NOTE | 2022-05-11 23:35 | History & Physical Report ---
Date of Service May 11, 2022 Assessment & Plan (1) SOB (shortness of breath): Plan: Multifactorial: Subacute heart failure ? secondary to uncontrolled HTN, hx chronic systolic heart failure secondary to ischemic cardiomyopathy, ESRD on HD Anxiety contributory Rule out PE, FERN Leg swelling secondary to CHF rule out DVT hx CAD status post CABG hyperlipidemia on statin Rx DM2 diet-controlled, controlled as of recent hemoglobin A1c of 5.15 March 2022 hypothyroidism, euthyroid as of today's TSH chronic anemia, hemoglobin at baseline chronic thrombocytopenia PCU Diuretic Rx strict I/Os, daily weights, CHF education, fluid restriction Cardiology and nephrology consultation for CHF in the setting of ESRD on HD Anxiolytic as needed CT chest PE study and LE venous Dopplers for clot work-up Outpatient sleep study Facilitate home BP meds and titrate as needed ISS BG goal 110-140 DVT prophylaxis. SCDs RE thrombocytopenia Full code Text document was generated using Bumpr voice recognition software. It may contain grammatical or spelling errors. Kindly contact undersigned for clarification of any documentation item in question. History of Present Illness Chief Complaint: Shortness of breath Primary Care Provider: Dalton Marcelino MD History obtained from patient and records. Medical history is significant for chronic systolic heart failure secondary to ischemic cardiomyopathy, (EF of 45-50% TTE 2021), CAD status post CABG, valvular heart disease (mild MR/TR), pulmonary hypertension, HTN, hyperlipidemia, ESRD on HD, DM2 diet-controlled, hypothyroidism chronic anemia (baseline hemoglobin 10), chronic thrombocytopenia Last confinement October 2021 for hypoxemic respiratory failure secondary to COVID-19 infection. Patient seen last month for shortness of breath/gasping episode causing him to wake up from sleep. No chest pain. Patient belly bloated and legs always swollen. Chest x-ray showed interstitial pulmonary edema. Patient discharged home. Patient returned to ER tonight for recurrent shortness of breath symptoms somewhat worse this week. No weight gain. Patient thinks he is actually losing weight. Patient compliant with home medications. Patient admits to anxiety waiting for phone call from [facility] as a kidney transplant candidate. Lasix administered at the ER. MEDICAL HISTORY: As above. SURGICAL HISTORY: He has had vascular procedures, CABG, eye surgery FAMILY HISTORY: heart disease, kidney disease PERSONAL/SOCIAL HISTORY: Nonsmoker. No chronic intake of alcoholic beverages. Disabled. Allergies Allergy/AdvReac Type Severity Reaction Status Date / Time Penicillins Allergy Severe ANAPHYLAXIS Verified 05/11/22 22:54 Home Medications Medication Instructions Recorded Confirmed Type levothyroxine 25 mcg tablet 25 mcg PO DAILYBB ##0 11/02/15 05/11/22 History diphenhydramine HCl 25 mg capsule 25 mg PO DAILY PRN Allergic 04/23/16 05/11/22 History (Benadryl) Reaction ##0 sevelamer carbonate 800 mg tablet 800 - 1,600 mg PO DIRECTED ##0 08/23/16 05/11/22 History (Renvela) isosorbide mononitrate 30 mg 30 mg PO QAM #0 tabs 11/09/17 05/11/22 History tablet,extended release 24 hr furosemide 80 mg tablet 160 mg PO QAM #0 tabs 03/30/18 05/11/22 History tamsulosin 0.4 mg capsule 0.4 mg PO QAM ##0 04/25/18 05/11/22 History pantoprazole 40 mg tablet,delayed 40 mg PO QAM 06/16/18 05/11/22 History release (Protonix) carvedilol 25 mg tablet 25 mg PO BID 02/21/20 05/11/22 History amlodipine 10 mg tablet 10 mg PO QAM 05/11/21 05/11/22 History aspirin 81 mg tablet,delayed 81 mg PO HS 05/11/21 05/11/22 History release atorvastatin 80 mg tablet 80 mg PO QAM 05/11/21 05/11/22 History cinacalcet 30 mg tablet (Sensipar) 30 mg PO HS 05/11/21 05/11/22 History hydralazine 25 mg tablet 25 mg PO BID 08/21/21 05/11/22 History furosemide 80 mg tablet 80 mg PO QPM 05/11/22 05/11/22 History losartan 50 mg tablet 50 mg PO DAILY 05/11/22 05/11/22 History sucroferric oxyhydroxide 500 mg 1,000 mg PO TIDM 05/11/22 05/11/22 History chewable tablet (Velphoro) sucroferric oxyhydroxide 500 mg 500 mg PO .WITH SNACKS 05/11/22 05/11/22 History chewable tablet (Velphoro) Past Med/Surg History Medical History Anemia due to end stage renal disease CAD (coronary artery disease) s/p CABG in 2013 Congestive heart failure Combined systolic and diastolic, compensated. Echo 2018 showed EF 40-45%. Prior to CABG EF was 30-34%. Diabetes mellitus, type 2 diet controlled Diabetic neuropathy Diabetic retinopathy BOTH EYES OPERATED ON Encounter for pre-operative examination ESRD (end stage renal disease) on dialysis 3xwk, m,w,f at [facility] Follows with dr. chaudhry Hyperlipidemia Hypertension Hypothyroidism Ischemic cardiomyopathy Morbid obesity with BMI of 40.0-44.9, adult Myocardial Infarction NSTEMI 02/2014--FOLLOWS W DR. CAMACHO Osteoarthritis Peripheral neuropathy Thrombocytopenia Chronic. Surgical History Fistula PLACED IN L WRIST H/O eye surgery RT/LT History of cardiac cath 02/2014--NO STENTS History of coronary artery bypass graft QUADRIPLE BYPASS @ [facility] [place] 02/2014. History of vascular access device permacath insertion--no longer has Hx of hernia repair abdominal hernia and removed PD catheter due to infection 06/2018 S/P arteriovenous (AV) fistula repair x2--recently in 05/31/2021 @ [facility] [place], prior to that 04/18/20 @ [facility] with Dr. Serrano Family History Mother Family history of diabetes mellitus Family history of reaction to anesthesia VERY GROGGY AFTER 10 HOUR SURGERY Grandfather Family history of diabetes mellitus MATERNAL Family/Other Family hx of colon cancer UNCLE Family history of diabetes mellitus MATERNAL AUNT Brother Family history of diabetes mellitus Social History Smoking Status: Never smoker Second Hand Exposure: Yes (FATHER SMOKED); Hx Alcohol Use: No Hx Substance Use: No Preferred Language: Mongolian Communication Ability: Effective Visual Impairment: No Limitations Process Coach Required: No Beliefs That Will Affect Care: None marital status: Single Current Living Situation: Family Current Living Situation Comment: with brother current occupational status: disabled How many Children do You have: 0 Other Information That Helps Us Care for You: No Feels Safe at Home: Yes Safety Concerns: Feels Safe At This Time Assistive Devices: None Review of Systems Review of Systems: As per HPI, all other systems reviewed and negative Physical Exam Physical Exam: GENERAL: Comfortable, slightly anxious, obese, no respiratory distress SKIN: Pallor, warm HEENT: pale palpebral conjunctivae, no ptosis, dry buccal mucosa NECK : Supple, short neck, no tenderness CHEST : Decreased breath sounds, no tenderness HEART : RRR, no obvious murmurs ABDOMEN: Some distention, nontender EXTREMITIES : Bilateral LE swelling, no LE tenderness , no other conspicuous deformities noted NEUROLOGIC : Coherent, no facial asymmetry, no other gross focality Results & Data Results & Data ([facility]) Vital Signs (Past 12 Hours) Vital Signs Temp Pulse Pulse Resp BP BP Pulse Ox 05/11/22 22:50 69 18 170/91 H 95 05/11/22 21:32 74 20 186/94 H 96 05/11/22 19:53 36.7 C 82 18 185/91 H 96 O2 Del Method 05/11/22 22:50 Room Air 05/11/22 21:32 Room Air 05/11/22 19:53 Room Air Laboratory Results Laboratory Results WBC 4.59 K/ul (4.8-10.8) L 05/11/22 20:58 RBC 2.97 M/uL (4.63-6.08) L 05/11/22 20:58 Hgb 10.0 g/dl (14.0-18.0) L 05/11/22 20:58 Hct 28.6 % (40.1-51.0) L 05/11/22 20:58 MCV 96.3 fL (80.0-100.0) 05/11/22 20:58 MCH 33.7 pg (25.0-34.0) 05/11/22 20:58 MCHC 35.0 g/dL (32.0-36.0) 05/11/22 20:58 RDW Std Deviation 46.7 fL (36.4-46.3) H 05/11/22 20:58 RDW Coeff of Ira 13.2 % (11.5-14.5) 05/11/22 20:58 Plt Count 102 K/uL (130-400) L 05/11/22 20:58 MPV 10.2 fL (9.4-12.4) 05/11/22 20:58 Immature Gran % (Auto) 0.0 % 05/11/22 20:58 Neut % (Auto) 69.9 % 05/11/22 20:58 Lymph % (Auto) 17.9 % 05/11/22 20:58 Seward % (Auto) 8.7 % 05/11/22 20:58 Eos % (Auto) 2.8 % 05/11/22 20:58 Baso % (Auto) 0.7 % 05/11/22 20:58 Neut # (Auto) 3.21 K/uL (1.4-6.5) 05/11/22 20:58 Lymph # (Auto) 0.82 K/uL (1.2-3.4) L 05/11/22 20:58 Seward # (Auto) 0.40 K/uL (0.24-0.82) 05/11/22 20:58 Eos # (Auto) 0.13 K/uL (0-0.50) 05/11/22 20:58 Baso # (Auto) 0.03 K/uL (0-0.2) 05/11/22 20:58 Immature Gran # (Auto) 0.00 K/uL (0.00-0.02) 05/11/22 20:58 APTT 26.2 Seconds (21.0-31.0) 05/11/22 20:58 PTT Ratio 1.0 05/11/22 20:58 Sodium 139 mmol/L (136-145) 05/11/22 20:58 Potassium 4.4 mmol/L (3.5-5.1) 05/11/22 20:58 Chloride 100 mmol/L (98-107) 05/11/22 20:58 Carbon Dioxide 29 mmol/L (21-32) 05/11/22 20:58 Anion Gap 10 (3-11) 05/11/22 20:58 BUN 39 mg/dl (6-23) H 05/11/22 20:58 Creatinine 8.86 mg/dl (0.6-1.4) H* 05/11/22 20:58 Est Cr Clr Drug Dosing 12.1 ml/min 05/11/22 20:58 Est GFR ( Amer) 7.3 ml/min 05/11/22 20:58 Est GFR (Non-Af Amer) 6.3 ml/min 05/11/22 20:58 BUN/Creatinine Ratio 4.4 (10-20) L 05/11/22 20:58 Glucose 148 mg/dl (70-99(Fasting)) H 05/11/22 20:58 Calcium 9.1 mg/dl (8.5-10.1) 05/11/22 20:58 Magnesium 2.3 mg/dl (1.7-2.4) 05/11/22 20:58 Total Bilirubin 1.0 mg/dl (0.2-1.0) 05/11/22 20:58 AST 15 U/L (13-39) 05/11/22 20:58 ALT 11 U/L (7-52) 05/11/22 20:58 Alkaline Phosphatase 104 U/L (34-104) 05/11/22 20:58 Troponin I High Sens 14.8 pg/ml (0-20) 05/11/22 20:58 B-Natriuretic Peptide 1355 pg/ml (0-100) H 05/11/22 21:31 Total Protein 7.3 gm/dl (6.0-8.3) 05/11/22 20:58 Albumin 4.6 gm/dl (3.4-5.0) 05/11/22 20:58 Globulin 2.7 gm/dl (2.5-4.0) 05/11/22 20:58 Albumin/Globulin Ratio 1.7 (0.9-2) 05/11/22 20:58 TSH 4.088 uIu/ml (0.300-4.500) 05/11/22 20:58 SARS-CoV-2, RNA, NAAT NEGATIVE (NEGATIVE) 05/11/22 21:41 Diagnostic Findings Chest x-ray as per my interpretation, cardiomegaly, congestion, pleural effusio ns EKG as per my interpretation : Rate 80, NSR, normal axis, T wave abnormality septal leads, PVCs
[2022-05-11] MEDS ORDERED: carvediloL 25 MG TAB PO STA (23:37)
[2022-05-12 00:25] LABS: D Dimer 580 ug/L FEU (0-500)
[2022-05-12] MEDS ORDERED: traMADol HCL 50 MG TABLET PO PRN (01:40)
[2022-05-12] MEDS ORDERED: GLUCOSE 10 TAB/TUBE PO PRN (01:40)
[2022-05-12] MEDS ORDERED: NITROGLYCERIN SL 0.4 MG/TAB TAB SL PRN (01:40)
[2022-05-12] MEDS ORDERED: NON-FORMULARY MEDICATION (Sucroferric Oxyhydroxide [Velphoro] 500 mg tablet,chewable) PO SCH (01:40)
[2022-05-12] MEDS ORDERED: DEXTROSE 50% 50 ML SYRINGE IV PRN (01:40)
[2022-05-12] MEDS ORDERED: GLUCAGON FOR INJ 1 MG VIAL SQ PRN (01:40)
[2022-05-12] MEDS ORDERED: LORazepam 0.5 MG TAB PO PRN (01:40)
[2022-05-12] MEDS ORDERED: GLUCOSE 40% GEL 15 GM TUBE PO PRN (01:40)
[2022-05-12] MEDS ORDERED: SEVELAMER HCL 800 MG TABLET PO PRN (01:40)
[2022-05-12] MEDS ORDERED: PROMETHAZINE HCL 12.5 MG in SODIUM CHLORIDE 0.9% 50 ML IV PRN (01:40)
[2022-05-12] MEDS ORDERED: ACETAMINOPHEN 325 MG TAB PO PRN (01:40)
[2022-05-12] MEDS ORDERED: CARBOHYDRATES FOR HYPOGLYCEMIA PO PRN (01:40)
[2022-05-12] MEDS ORDERED: OPTIRAY 320 125ml IV ONE (02:25)
[2022-05-12] MEDS: INSULIN ASPART PER UNIT SC SCH ×5 (03:54→20:33)
[2022-05-12] MEDS ORDERED: hydrALAZINE TAB 50 MG TAB PO SCH (04:00)
[2022-05-12] MEDS: LOSARTAN POTASSIUM 50 MG TAB PO SCH (04:00)
[2022-05-12] MEDS ORDERED: carvediloL 25 MG TAB PO SCH ×2 (05:45→09:00)
[2022-05-12] MEDS ORDERED: HEPARIN SOD 5,000 UNIT/0.5 ML VIAL SQ SCH (06:00)
[2022-05-12] MEDS: LEVOTHYROXINE SODIUM 25 MCG TABLET PO SCH (06:46)
[2022-05-12] MEDS ORDERED: LABETALOL HCL IV 5 MG/ML 20ML IV STA (06:51)
--- NOTE | 2022-05-12 07:07 | CT Scan Report ---
CT ANGIOGRAPHY OF THE CHEST, PULMONARY EMBOLUS PROTOCOL CLINICAL HISTORY: Shortness of breath. COMPARISON STUDY: Chest radiograph May 11, 2022. Chest CT January 12, 2014. TECHNIQUE: Following IV administration of 120 mL of Optiray, helical axial images of the chest were o btained utilizing the pulmonary embolus protocol. Maximal intensity projections and sagittal and cor onal reformats were viewed on an independent 3D workstation. IV contrast was administered without co mplication. Automated exposure control was utilized for the study. A dose lowering technique was ut ilized adhering to the principles of ALARA. CT DOSE: 845.49 mGy.cm FINDINGS: No pulmonary emboli are identified although this exam is mildly compromised by respiratory motion. Median sternotomy and postoperative findings from bypass grafting are noted. There is mild c ardiomegaly. Extensive coronary artery calcification. No thoracic aortic dissection is present. Moder ate left and small right pleural effusions are present. Interlobular septal thickening is indicative of interstitial edema. Several irregular nodular opacities within lungs measure up to 6 mm. Thoracic lymphadenopathy is improved since CT of January 12, 2014. Old mild T5 compression deformity is unchanged . Mild splenomegaly has slightly decreased. There is no pneumothorax. IMPRESSION: 1. No pulmonary emboli identified although exam mildly compromised by respiratory motion. 2. Cardiomegaly with interstitial pulmonary edema. Moderate left and small right pleural effusions. 3. Several nodular opacities within the lungs which measure up to 6 mm. These likely reflect alveolar edema. An infectious process could appear similar although is considered less likely. Follow-up ches t CT in 3 months to ensure resolution is recommended. ACT 112: Negative or not required by law. Electronically signed by: Abhinav Hopkins M.D. 05/12/2022 7:04 AM
--- NOTE | 2022-05-12 07:12 | Ultrasound Report ---
BILATERAL LOWER EXTREMITY VENOUS DOPPLER HISTORY: Acute pain and swelling of the lower legs leg swelling COMPARISON STUDY: 03/30/2018. FINDINGS: There is normal compressibility, flow, and augmentation within the bilateral lower extremit y deep venous systems. Subcutaneous edema. IMPRESSION: No DVT within the right or left lower extremity. ACT 112: Negative or not required by law. Electronically signed by: Oliverio Coronado M.D. 05/12/2022 7:11 AM
[2022-05-12] MEDS: TAMSULOSIN HCL 0.4 MG CAP PO SCH (07:55)
[2022-05-12] MEDS: ISOSORBIDE MONO EXTENDED REL 30 MG TABCR PO SCH (07:55)
[2022-05-12] MEDS: SEVELAMER HCL 800 MG TABLET PO SCH ×3 (07:56→16:44)
--- NOTE | 2022-05-12 08:00 | XRay Report ---
XR chest 1V portable HISTORY: 51 years-old Male sob acute shortness of breath COMPARISON: CTA chest 05/12/2022 TECHNIQUE: Portable AP view of the chest FINDINGS: Cardiac silhouette is enlarged. Prior median sternotomy with CABG. Pulmonary vascular congestion with interstitial coarsening. Layering pleural effusions with minimal bibasilar densities. Left subclavia n vascular stent graft. Bones appear grossly intact. IMPRESSION: 1. Cardiomegaly with pulmonary edema. 2. Left greater than right pleural effusions. ACT 112: Negative or not required by law. The above report was generated using voice recognition software. It may contain grammatical, syntax o r spelling errors. Electronically signed by: Oliverio Coronado M.D. 05/12/2022 7:58 AM
[2022-05-12] MEDS: PANTOprazole 40 MG TAB PO SCH (08:05)
[2022-05-12] MEDS: FUROSEMIDE 80 MG TAB PO SCH ×2 (08:05→19:51)
[2022-05-12] MEDS: ATORVASTATIN 40 MG TAB PO SCH (08:06)
[2022-05-12 08:52] LABS: Basophils # (auto) 0.04 K/uL (0-0.2); Basophils % (auto) 0.8 %; Eosinophils # (auto) 0.16 K/uL (0-0.50); Eosinophils % (auto) 3.3 %; Hemoglobin 10.6 g/dl (14.0-18.0); Immature Granulocytes # (auto) 0.02 K/uL (0.00-0.02); Immature Granulocytes % (auto) 0.4 %; Lymphocytes # (auto) 0.72 K/uL (1.2-3.4); Mean Corpuscular Hemoglobin 33.7 pg (25.0-34.0); Mean Corpuscular Hgb Conc 35.3 g/dL (32.0-36.0); Mean Corpuscular Volume 95.2 fL (80.0-100.0); Monocytes # (auto) 0.44 K/uL (0.24-0.82); Monocytes % (auto) 9.1 %; Neutrophils # (auto) 3.43 K/uL (1.4-6.5); Neutrophils % (auto) 71.4 %; Platelet Count 118 K/uL (130-400); RDW Coefficient of Variation 13.3 % (11.5-14.5); RDW Standard Deviation 45.5 fL (36.4-46.3); Red Blood Count 3.15 M/uL (4.63-6.08); White Blood Count 4.81 K/ul (4.8-10.8)
--- NOTE | 2022-05-12 08:57 | Cardiology Consultation ---
Date of Consultation May 12, 2022 Assessment & Plan (1) ESRD needing dialysis: (2) SOB (shortness of breath): (3) Fluid overload: (4) Diabetes mellitus, type II: (5) Systolic CHF, chronic: (6) Hx of CABG: Plan The patient presented with volume overload and is undergoing dialysis. This is most likely the cause of congestive heart failure. I have no further recommendations at this time. History of Present Illness Attending Physician: Jefferson Castro MD History of Present Illness This is a 51-year-old male patient with a longstanding history of diabetes with complications of chronic kidney disease, retinopathy and coronary artery disease. He also has a history of chronic thrombocytopenia. In 2013 he was admitted to [facility] on multiple occasions for congestive heart failure with evidence of an ischemic cardiomyopathy. His last estimated left ventricular ejection fraction was around 40%. In 2013 he underwent a cardiac catheterization at [facility] revealing multivessel coronary artery disease that resulted in coronary artery bypass surgery with a DUMONT to the LAD and a sequential vein graft to the PDA and PLB, sequential vein graft to the diagonal obtuse marginal. He has been on dialysis since 2014. He is being followed by the transplant team at [facility]. The patient was admitted with symptoms of progressive shortness of breath. I am seeing him currently in dialysis where he is receiving a treatment to remove volume. Allergies Allergy/AdvReac Type Severity Reaction Status Date / Time Penicillins Allergy Severe ANAPHYLAXIS Verified 05/11/22 22:54 Home Medications Medication Instructions Recorded Confirmed Type levothyroxine 25 mcg tablet 25 mcg PO DAILYBB ##0 11/02/15 05/11/22 History diphenhydramine HCl 25 mg capsule 25 mg PO DAILY PRN Allergic 04/23/16 05/11/22 History (Benadryl) Reaction ##0 sevelamer carbonate 800 mg tablet 800 - 1,600 mg PO DIRECTED ##0 08/23/16 05/11/22 History (Renvela) isosorbide mononitrate 30 mg 30 mg PO QAM #0 tabs 11/09/17 05/11/22 History tablet,extended release 24 hr furosemide 80 mg tablet 160 mg PO QAM #0 tabs 03/30/18 05/11/22 History tamsulosin 0.4 mg capsule 0.4 mg PO QAM ##0 04/25/18 05/11/22 History pantoprazole 40 mg tablet,delayed 40 mg PO QAM 06/16/18 05/11/22 History release (Protonix) carvedilol 25 mg tablet 25 mg PO BID 02/21/20 05/11/22 History amlodipine 10 mg tablet 10 mg PO QAM 05/11/21 05/11/22 History aspirin 81 mg tablet,delayed 81 mg PO HS 05/11/21 05/11/22 History release atorvastatin 80 mg tablet 80 mg PO QAM 05/11/21 05/11/22 History cinacalcet 30 mg tablet (Sensipar) 30 mg PO HS 05/11/21 05/11/22 History hydralazine 25 mg tablet 25 mg PO BID 08/21/21 05/11/22 History furosemide 80 mg tablet 80 mg PO QPM 05/11/22 05/11/22 History losartan 50 mg tablet 50 mg PO DAILY 05/11/22 05/11/22 History sucroferric oxyhydroxide 500 mg 1,000 mg PO TIDM 05/11/22 05/11/22 History chewable tablet (Velphoro) sucroferric oxyhydroxide 500 mg 500 mg PO .WITH SNACKS 05/11/22 05/11/22 History chewable tablet (Velphoro) Patient History Medical History Anemia due to end stage renal disease CAD (coronary artery disease) s/p CABG in 2013 Congestive heart failure Combined systolic and diastolic, compensated. Echo 2017 showed EF 40-45%. Prior to CABG EF was 30-34%. Diabetes mellitus, type 2 diet controlled Diabetic neuropathy Diabetic retinopathy BOTH EYES OPERATED ON Encounter for pre-operative examination ESRD (end stage renal disease) on dialysis 3xwk, m,w,f at [facility] Follows with dr. chaudhry Hyperlipidemia Hypertension Hypothyroidism Ischemic cardiomyopathy Morbid obesity with BMI of 40.0-44.9, adult Myocardial Infarction NSTEMI 02/2014--FOLLOWS W DR. CAMACHO Osteoarthritis Peripheral neuropathy Thrombocytopenia Chronic. Surgical History Fistula PLACED IN L WRIST H/O eye surgery RT/LT History of cardiac cath 02/2014--NO STENTS History of coronary artery bypass graft QUADRIPLE BYPASS @ [facility] 02/2014. History of vascular access device permacath insertion--no longer has Hx of hernia repair abdominal hernia and removed PD catheter due to infection 06/2018 S/P arteriovenous (AV) fistula repair x2--recently in 05/31/2021 @ [facility], prior to that 04/18/20 @ [facility] with Dr. Serrano Family History Mother Family history of diabetes mellitus Family history of reaction to anesthesia VERY GROGGY AFTER 10 HOUR SURGERY Grandfather Family history of diabetes mellitus MATERNAL Family/Other Family hx of colon cancer UNCLE Family history of diabetes mellitus MATERNAL AUNT Brother Family history of diabetes mellitus Social History Smoking Status: Never smoker Second Hand Exposure: Yes (FATHER SMOKED); Hx Alcohol Use: No Hx Substance Use: No Preferred Language: [place] Communication Ability: Effective Visual Impairment: No Limitations Senior Engineer Required: No Beliefs That Will Affect Care: None marital status: Single Current Living Situation: Family Current Living Situation Comment: with brother current occupational status: disabled How many Children do You have: 0 Other Information That Helps Us Care for You: No Feels Safe at Home: Yes Safety Concerns: Feels Safe At This Time Assistive Devices: None Review of Systems Review of Systems: Review of Systems: See HPI for pertinent positives. All other 10 point review of systems are negative. Physical Exam Physical Exam: General: no acute distress and stated age Head: normocephalic, no masses, lesions, tenderness or abnormalities Eyes: conjunctiva are pink and non-injected, sclera clear Neck: supple, no adenopathy, no bruits, normal jugular venous pulse, no hepatojugular reflux Chest: normal shape and normal respiratory effort Lungs: clear to auscultation and percussion Cardiac Exam: - regular rate & rhythm, no murmurs gallops or rubs - normal S1, normal S2 Pulses: 2(+) throughout Abdomen: abdomen soft, non-tender, no abnormal masses and no hepatosplenomegaly Musculoskeletal: no gait disturbance, no joint inflammation, no deforming arthritis Extremities: no edema and no cyanosis Neuro: grossly normal exam Results & Data ([facility]) Vital Signs (Past 12 Hours) Vital Signs Temp Pulse Pulse Resp BP Pulse Ox O2 Del Method 05/12/22 08:00 67 180/102 H 05/12/22 06:19 68 05/12/22 07:36 Nasal Cannula 05/12/22 07:23 36.8 C 66 16 180/100 H 98 Room Air 05/12/22 06:47 200/115 H 05/12/22 05:41 181/94 H 05/12/22 05:04 187/103 H 05/12/22 03:49 98 Nasal Cannula 05/12/22 03:43 36.8 C 73 20 187/103 H 86 L Room Air 05/12/22 02:02 74 05/12/22 01:44 36.6 C 78 20 180/97 H 93 Room Air 05/12/22 00:40 Room Air 05/12/22 00:33 72 18 182/93 H 95 Room Air 05/11/22 22:50 69 18 170/91 H 95 Room Air 05/11/22 21:32 74 20 186/94 H 96 Room Air O2 Flow Rate 05/12/22 08:00 05/12/22 06:19 05/12/22 07:36 2 05/12/22 07:23 2 05/12/22 06:47 05/12/22 05:41 05/12/22 05:04 05/12/22 03:49 2 05/12/22 03:43 05/12/22 02:02 05/12/22 01:44 05/12/22 00:40 05/12/22 00:33 05/11/22 22:50 05/11/22 21:32 Laboratory Results Laboratory Results - last 24 hr 05/11/22 05/11/22 05/11/22 20:58 20:58 20:58 WBC 4.59 L RBC 2.97 L Hgb 10.0 L Hct 28.6 L MCV 96.3 MCH 33.7 MCHC 35.0 RDW Std Deviation 46.7 H RDW Coeff of Ira 13.2 Plt Count 102 L MPV 10.2 Immature Gran % (Auto) 0.0 Neut % (Auto) 69.9 Lymph % (Auto) 17.9 [place] % (Auto) 8.7 Eos % (Auto) 2.8 Baso % (Auto) 0.7 Neut # (Auto) 3.21 Lymph # (Auto) 0.82 L [place] # (Auto) 0.40 Eos # (Auto) 0.13 Baso # (Auto) 0.03 Immature Gran # (Auto) 0.00 APTT PTT Ratio D-Dimer Sodium 139 Potassium 4.4 Chloride 100 Carbon Dioxide 29 Anion Gap 10 BUN 39 H Creatinine 8.86 H* Est Cr Clr Drug Dosing 12.1 Est GFR ( Amer) 7.3 Est GFR (Non-Af Amer) 6.3 BUN/Creatinine Ratio 4.4 L Glucose 148 H POC Glucose Calcium 9.1 Magnesium 2.3 Total Bilirubin 1.0 AST 15 ALT 11 Alkaline Phosphatase 104 Troponin I High Sens 14.8 B-Natriuretic Peptide Total Protein 7.3 Albumin 4.6 Globulin 2.7 Albumin/Globulin Ratio 1.7 TSH 4.088 Nasal Screen MRSA (PCR) SARS-CoV-2, RNA, NAAT 05/11/22 05/11/22 05/11/22 20:58 20:58 21:31 WBC RBC Hgb Hct MCV MCH MCHC RDW Std Deviation RDW Coeff of Ira Plt Count MPV Immature Gran % (Auto) Neut % (Auto) Lymph % (Auto) [place] % (Auto) Eos % (Auto) Baso % (Auto) Neut # (Auto) Lymph # (Auto) [place] # (Auto) Eos # (Auto) Baso # (Auto) Immature Gran # (Auto) APTT 26.2 PTT Ratio 1.0 D-Dimer 580 H* Sodium Potassium Chloride Carbon Dioxide Anion Gap BUN Creatinine Est Cr Clr Drug Dosing Est GFR ( Amer) Est GFR (Non-Af Amer) BUN/Creatinine Ratio Glucose POC Glucose Calcium Magnesium Total Bilirubin AST ALT Alkaline Phosphatase Troponin I High Sens B-Natriuretic Peptide 1355 H Total Protein Albumin Globulin Albumin/Globulin Ratio TSH Nasal Screen MRSA (PCR) SARS-CoV-2, RNA, NAAT 05/11/22 05/12/22 05/12/22 21:41 01:24 02:15 WBC RBC Hgb Hct MCV MCH MCHC RDW Std Deviation RDW Coeff of Ira Plt Count MPV Immature Gran % (Auto) Neut % (Auto) Lymph % (Auto) [place] % (Auto) Eos % (Auto) Baso % (Auto) Neut # (Auto) Lymph # (Auto) [place] # (Auto) Eos # (Auto) Baso # (Auto) Immature Gran # (Auto) APTT PTT Ratio D-Dimer Sodium Potassium Chloride Carbon Dioxide Anion Gap BUN Creatinine Est Cr Clr Drug Dosing Est GFR ( Amer) Est GFR (Non-Af Amer) BUN/Creatinine Ratio Glucose POC Glucose 105 H Calcium Magnesium Total Bilirubin AST ALT Alkaline Phosphatase Troponin I High Sens B-Natriuretic Peptide Total Protein Albumin Globulin Albumin/Globulin Ratio TSH Nasal Screen MRSA (PCR) Negative SARS-CoV-2, RNA, NAAT NEGATIVE 05/12/22 05/12/22 05/12/22 07:38 07:54 07:55 WBC 4.81 RBC 3.15 L Hgb 10.6 L Hct 30.0 L MCV 95.2 MCH 33.7 MCHC 35.3 RDW Std Deviation 45.5 RDW Coeff of Ira 13.3 Plt Count 118 L MPV 11.0 Immature Gran % (Auto) 0.4 Neut % (Auto) 71.4 Lymph % (Auto) 15.0 [place] % (Auto) 9.1 Eos % (Auto) 3.3 Baso % (Auto) 0.8 Neut # (Auto) 3.43 Lymph # (Auto) 0.72 L [place] # (Auto) 0.44 Eos # (Auto) 0.16 Baso # (Auto) 0.04 Immature Gran # (Auto) 0.02 APTT PTT Ratio D-Dimer Sodium 138 Potassium 4.5 Chloride 99 Carbon Dioxide 29 Anion Gap 10 BUN 44 H Creatinine 9.50 H* D Est Cr Clr Drug Dosing 11.3 Est GFR ( Amer) 6.7 Est GFR (Non-Af Amer) 5.8 BUN/Creatinine Ratio 4.6 L Glucose 102 H POC Glucose 106 H Calcium 9.5 Magnesium Total Bilirubin AST ALT Alkaline Phosphatase Troponin I High Sens B-Natriuretic Peptide Total Protein Albumin Globulin Albumin/Globulin Ratio TSH Nasal Screen MRSA (PCR) SARS-CoV-2, RNA, NAAT 05/12/22 11:29 WBC RBC Hgb Hct MCV MCH MCHC RDW Std Deviation RDW Coeff of Ira Plt Count MPV Immature Gran % (Auto) Neut % (Auto) Lymph % (Auto) [place] % (Auto) Eos % (Auto) Baso % (Auto) Neut # (Auto) Lymph # (Auto) [place] # (Auto) Eos # (Auto) Baso # (Auto) Immature Gran # (Auto) APTT PTT Ratio D-Dimer Sodium Potassium Chloride Carbon Dioxide Anion Gap BUN Creatinine Est Cr Clr Drug Dosing Est GFR ( Amer) Est GFR (Non-Af Amer) BUN/Creatinine Ratio Glucose POC Glucose 137 H Calcium Magnesium Total Bilirubin AST ALT Alkaline Phosphatase Troponin I High Sens B-Natriuretic Peptide Total Protein Albumin Globulin Albumin/Globulin Ratio TSH Nasal Screen MRSA (PCR) SARS-CoV-2, RNA, NAAT Medications Administered Current Inpatient Medications Acetaminophen (Acetaminophen 325 Mg Tab) 650 mg PO Q4H PRN PRN Reason: Pain or Fever Stop: 06/11/22 01:39 Amlodipine Besylate (Amlodipine Besylate 5 Mg Tab) 10 mg PO HS HALI Stop: 06/11/22 20:59 Aspirin (Aspirin 81 Mg Ectab) 81 mg PO HS HALI Stop: 06/11/22 20:59 Atorvastatin Calcium (Atorvastatin 40 Mg Tab) 80 mg PO QAM HALI Stop: 06/11/22 08:59 Last Admin: 05/12/22 08:06 Dose: 80 mg Carvedilol (Carvedilol 25 Mg Tab) 25 mg PO BID HALI Stop: 06/11/22 05:44 Last Admin: 05/12/22 05:47 Dose: 25 mg Cinacalcet (Cinacalcet Hcl 30 Mg Tab) 30 mg PO HS HALI Stop: 06/11/22 20:59 Dextrose (Dextrose 50% 50 Ml Syringe) 25 - 50 ml IV UD PRN; Protocol PRN Reason: Hypoglycemia Protocol Stop: 06/11/22 01:39 Furosemide (Furosemide 80 Mg Tab) 160 mg PO BID HALI Stop: 06/11/22 08:59 Last Admin: 05/12/22 08:05 Dose: 160 mg Glucagon (Glucagon For Inj 1 Mg Vial) 1 mg SQ UD PRN; Protocol PRN Reason: Hypoglycemia Protocol Stop: 06/11/22 01:39 Glucose (Glucose 40% Gel 15 Gm Tube) 15 - 30 gm PO UD PRN; Protocol PRN Reason: Hypoglycemia Protocol Stop: 06/11/22 01:39 Glucose (Glucose 10 Tab/Tube) 4 - 8 tab PO UD PRN; Protocol PRN Reason: Hypoglycemia Treatment Stop: 06/11/22 01:39 Heparin Sodium (Porcine) (Heparin Sod (Porcine) 1000 Unit/Ml) 1,000 units IV TODAY@1100 HALI Stop: 05/12/22 14:00 Heparin Sodium (Porcine) (Heparin Sod (Porcine) 1000 Unit/Ml) 400 units IV TODAY@1100,1200,1300 HALI Stop: 05/12/22 16:00 Hydralazine HCl (Hydralazine Tab 50 Mg Tab) 50 mg PO TID [facility] Stop: 06/11/22 13:59 Promethazine HCl 12.5 mg/ (Sodium Chloride) 50.5 mls @ 202 mls/hr IV Q6H PRN PRN Reason: Nausea And Vomiting Stop: 06/11/22 01:39 Sodium Chloride (Nss 1000ml) 1,000 mls @ 0 mls/hr IV .Q0M PRN PRN Reason: For Hemodialysis Use ONLY Stop: 05/12/22 16:13 Insulin Aspart (Insulin Aspart Per Unit) 0 units SC ACHS [facility] Stop: 06/11/22 01:39 Last Admin: 05/12/22 08:04 Dose: Not Given Isosorbide Mononitrate (Isosorbide [place] Extended Rel 30 Mg Tabcr) 30 mg PO QAM [facility] Stop: 06/11/22 06:54 Last Admin: 05/12/22 07:55 Dose: 30 mg Levothyroxine Sodium (Levothyroxine Sodium 25 Mcg Tablet) 25 mcg PO DAILYBB [facility] Stop: 06/11/22 06:29 Last Admin: 05/12/22 06:46 Dose: 25 mcg Lorazepam (Lorazepam 0.5 Mg Tab) 0.5 mg PO TID PRN PRN Reason: Anxiety Stop: 06/11/22 01:39 Losartan Potassium (Losartan Potassium 50 Mg Tab) 50 mg PO DAILY [facility] Stop: 06/11/22 03:54 Last Admin: 05/12/22 04:00 Dose: 50 mg Miscellaneous (Velphoro~Order Awaiting Action) 1 each N/A QS [facility] Stop: 06/11/22 01:59 Last Admin: 05/12/22 07:56 Dose: Not Given Miscellaneous (Carbohydrates For Hypoglycemia ) 15 - 30 gm PO UD PRN PRN Reason: Hypoglycemia Protocol Stop: 06/11/22 01:39 Nitroglycerin (Nitroglycerin Sl 0.4 Mg/Tab Tab) 0.4 mg SL UD PRN PRN Reason: Chest Pain Stop: 06/11/22 01:39 Pantoprazole Sodium (Pantoprazole 40 Mg Tab) 40 mg PO QAM [facility] Stop: 06/11/22 08:59 Last Admin: 05/12/22 08:05 Dose: 40 mg Sevelamer HCl (Sevelamer Hcl 800 Mg Tablet) 800 mg PO UD PRN PRN Reason: with snacks Stop: 06/11/22 01:39 Sevelamer HCl (Sevelamer Hcl 800 Mg Tablet) 1,600 mg PO TIDM [facility] Stop: 06/11/22 07:59 Last Admin: 05/12/22 07:56 Dose: 1,600 mg Tamsulosin HCl (Tamsulosin Hcl 0.4 Mg Cap) 0.4 mg PO QAM [facility] Stop: 06/11/22 06:54 Last Admin: 05/12/22 07:55 Dose: 0.4 mg Tramadol HCl (Tramadol Hcl 50 Mg Tablet) 25 - 50 mg PO Q4H PRN PRN Reason: Pain Stop: 06/11/22 01:39
[2022-05-12] MEDS ORDERED: TAMSULOSIN HCL 0.4 MG CAP PO SCH (09:00)
[2022-05-12] MEDS ORDERED: ISOSORBIDE MONO EXTENDED REL 30 MG TABCR PO SCH (09:00)
[2022-05-12] MEDS ORDERED: hydrALAZINE HCL 25 MG TAB PO SCH (09:00)
[2022-05-12] MEDS ORDERED: LOSARTAN POTASSIUM 50 MG TAB PO SCH (09:00)
[2022-05-12 09:26] LABS: BUN Creatinine Ratio 4.6 (10-20); Calcium 9.5 mg/dl (8.5-10.1); Creatinine Clr Calc Pharmacy 11.3 ml/min; Est GFR (African American) 6.7 ml/min; Est GFR (Non-African American) 5.8 ml/min; Potassium 4.5 mmol/L (3.5-5.1)
--- NOTE | 2022-05-12 10:10 | Nephrology Consultation ---
Date of Consultation May 12, 2022 Assessment & Plan (1) ESRD needing dialysis: HD today 2 hr tx; plan additional tx tomorrow per routine. Goal fluid removal for today 2.5L, which we were able to get plan HD Tomorrow 4 hr tx goal 3-4 LUF as tolerated hold epo for now w/ HTN may need daily dialysis while in house (2) Fluid overload: as above diuretics will temporize his issues but not resolve much here; he makes less than a cup of urine daily he tells me History of Present Illness Reason for Consultation: ESRD on HD Requesting Physician: Dr Yang Attending Physician: Jefferson Castro MD History of Present Illness 51 y/o M whom I'm asked to see for dialysis needs was admitted overnight after presenting with dyspnea from fluid overload. PMH includes ESRD on HD, CAD w/ mild ischemic cardiomyopathy EF 40% and s/p 2013 CABG, HTN, diet controlled DM, hypothyroid, chronic thrombocytopenia, He dialyzes under my care at [facility] and is adherent w/ treatments. He has been losing wt recently (intentional) and we have been cutting down his target weight. He also cramps easily at dialysis. On 05/10, 600 mL of fluid was removed at dialysis; his target weight was also lowered. HE is adherent w/ HD txs. Cardiology evaluated the pt and agrees w/ fluid removal/dialysis. when I evaluated him this afternoon after HD he was feeling breathing improved after 2.5 L fluid removal. He denies f/c or constitutional sx; no decreased appetite but has noted some epigastric bloat/tightness improved w/ HD. no cough; no wheeeze. no change in chronic voiding sx -makes about 2/3 cup urine daily. no rash Allergies Allergy/AdvReac Type Severity Reaction Status Date / Time Penicillins Allergy Severe ANAPHYLAXIS Verified 05/11/22 22:54 Home Medications Medication Instructions Recorded Confirmed Type levothyroxine 25 mcg tablet 25 mcg PO DAILYBB ##0 11/02/15 05/11/22 History diphenhydramine HCl 25 mg capsule 25 mg PO DAILY PRN Allergic 04/23/16 05/11/22 History (Benadryl) Reaction ##0 sevelamer carbonate 800 mg tablet 800 - 1,600 mg PO DIRECTED ##0 08/23/16 05/11/22 History (Renvela) isosorbide mononitrate 30 mg 30 mg PO QAM #0 tabs 11/09/17 05/11/22 History tablet,extended release 24 hr furosemide 80 mg tablet 160 mg PO QAM #0 tabs 03/30/18 05/11/22 History tamsulosin 0.4 mg capsule 0.4 mg PO QAM ##0 04/25/18 05/11/22 History pantoprazole 40 mg tablet,delayed 40 mg PO QAM 06/16/18 05/11/22 History release (Protonix) carvedilol 25 mg tablet 25 mg PO BID 02/21/20 05/11/22 History amlodipine 10 mg tablet 10 mg PO QAM 05/11/21 05/11/22 History aspirin 81 mg tablet,delayed 81 mg PO HS 05/11/21 05/11/22 History release atorvastatin 80 mg tablet 80 mg PO QAM 05/11/21 05/11/22 History cinacalcet 30 mg tablet (Sensipar) 30 mg PO HS 05/11/21 05/11/22 History hydralazine 25 mg tablet 25 mg PO BID 08/21/21 05/11/22 History furosemide 80 mg tablet 80 mg PO QPM 05/11/22 05/11/22 History losartan 50 mg tablet 50 mg PO DAILY 05/11/22 05/11/22 History sucroferric oxyhydroxide 500 mg 1,000 mg PO TIDM 05/11/22 05/11/22 History chewable tablet (Velphoro) sucroferric oxyhydroxide 500 mg 500 mg PO .WITH SNACKS 05/11/22 05/11/22 History chewable tablet (Velphoro) Patient History Medical History Anemia due to end stage renal disease CAD (coronary artery disease) s/p CABG in 2013 Congestive heart failure Combined systolic and diastolic, compensated. Echo 2018 showed EF 40-45%. Prior to CABG EF was 30-34%. Diabetes mellitus, type 2 diet controlled Diabetic neuropathy Diabetic retinopathy BOTH EYES OPERATED ON Encounter for pre-operative examination ESRD (end stage renal disease) on dialysis 3xwk, m,w,f at [facility] Follows with dr. chaudhry Hyperlipidemia Hypertension Hypothyroidism Ischemic cardiomyopathy Morbid obesity with BMI of 40.0-44.9, adult Myocardial Infarction NSTEMI 02/2014--FOLLOWS W DR. CAMACHO Osteoarthritis Peripheral neuropathy Thrombocytopenia Chronic. Surgical History Fistula PLACED IN L WRIST H/O eye surgery RT/LT History of cardiac cath 02/2014--NO STENTS History of coronary artery bypass graft QUADRIPLE BYPASS @ [facility] [place] 02/2014. History of vascular access device permacath insertion--no longer has Hx of hernia repair abdominal hernia and removed PD catheter due to infection 06/2018 S/P arteriovenous (AV) fistula repair x2--recently in 05/31/2021 @ [facility] [place], prior to that 04/18/20 @ [facility] with Dr. Serrano Family History Mother Family history of diabetes mellitus Family history of reaction to anesthesia VERY GROGGY AFTER 10 HOUR SURGERY Grandfather Family history of diabetes mellitus MATERNAL Family/Other Family hx of colon cancer UNCLE Family history of diabetes mellitus MATERNAL AUNT Brother Family history of diabetes mellitus Social History Smoking Status: Never smoker Second Hand Exposure: Yes (FATHER SMOKED); Hx Alcohol Use: No Hx Substance Use: No Preferred Language: Latvian Communication Ability: Effective Visual Impairment: No Limitations Director Of [employer] Required: No Beliefs That Will Affect Care: None marital status: Single Current Living Situation: Family Current Living Situation Comment: with brother current occupational status: disabled How many Children do You have: 0 Other Information That Helps Us Care for You: No Feels Safe at Home: Yes Safety Concerns: Feels Safe At This Time Assistive Devices: None Review of Systems Review of Systems: All systems reviewed & are unremarkable except as noted in HPI & below Physical Exam Constitutional: well developed and well nourished Eyes: EOM intact bilaterally ENMT: Ears: no external ear abnormality Nose: no external nose abnormality Mouth: + dry oral mucous membranes Neck: no nuchal rigidity Respiratory: normal respiratory effort; no respiratory distress and no cough Auscultation: + diminished lung sounds Cardiovascular: Rate/Rhythm: regular rate and regular rhythm Heart Sounds: + murmur Extremities: + edema (1++) Gastrointestinal (Abdomen): Inspection/Auscultation: normal bowel sounds Percussion/Palpation: abdomen soft; abdomen nontender Musculoskeletal: Extremities: strength 5/5 throughout Skin: no rashes, warm and dry Neurologic: sharp, fluent speech, no tremor Results & Data ([facility]) Vital Signs (Past 12 Hours) Vital Signs Temp Pulse Pulse Resp BP Pulse Ox O2 Del Method 05/12/22 09:10 66 153/81 H 05/12/22 08:00 67 180/102 H 05/12/22 06:19 68 05/12/22 07:36 Nasal Cannula 05/12/22 07:23 36.8 C 66 16 180/100 H 98 Room Air 05/12/22 06:47 200/115 H 05/12/22 05:41 181/94 H 05/12/22 05:04 187/103 H 05/12/22 03:49 98 Nasal Cannula 05/12/22 03:43 36.8 C 73 20 187/103 H 86 L Room Air 05/12/22 02:02 74 05/12/22 01:44 36.6 C 78 20 180/97 H 93 Room Air 05/12/22 00:40 Room Air 05/12/22 00:33 72 18 182/93 H 95 Room Air 05/11/22 22:50 69 18 170/91 H 95 Room Air O2 Flow Rate 05/12/22 09:10 05/12/22 08:00 05/12/22 06:19 05/12/22 07:36 2 05/12/22 07:23 2 05/12/22 06:47 05/12/22 05:41 05/12/22 05:04 05/12/22 03:49 2 05/12/22 03:43 05/12/22 02:02 05/12/22 01:44 05/12/22 00:40 05/12/22 00:33 05/11/22 22:50 Laboratory Results 05/12/22 07:54 05/12/22 07:55 Diagnostic Findings CTA chest > Cardiomegaly with interstitial pulmonary edema. Moderate left and small right pleural effusions. CXR>Cardiomegaly with pulmonary edema.
[2022-05-12] MEDS ORDERED: SODIUM CHLORIDE 0.9% 1000ML 1,000 ML IV PRN (10:14)
[2022-05-12] MEDS ORDERED: HEPARIN SOD (PORCINE) 1000 UNIT/ML IV SCH (11:00)
--- NOTE | 2022-05-12 11:22 | Hospitalist Progress Note ---
Date of Service May 12, 2022 Assessment & Plan (1) SOB (shortness of breath): (2) Fluid overload: (3) ESRD needing dialysis: Plan: Present on admission with worsening SOB CTA chest showed Cardiomegaly with interstitial pulmonary edema. Moderate left and small right pleural effusions. CXR showed Cardiomegaly with pulmonary edema. Elevated BNP on admission @ 1355 Lasix 80mg IV given on admission Currently on Lasix 160mg PO BID Nephrology on board plan to HD for 2 hrs today with goal of 2L fluid removes, then schedule for regular HD tomorrow Acute on Chronic CHF Hx Chronic systolic and diastolic CHF Elevated BNP on admission @ 1355 cardiology on board Continue diuretic clinically improves Coronary artery disease: S/P CABG Continue carvedilol, atorvastatin, isosorbide Edema Due to volume overload Doppler of LE negative for DVT Plan to HD today Continue monitor Hypertensive urgency BP elevated on admission Possible to volume overload and anxiety , hospital setting Received IV labetalol 10mg this morniing Hydralazine increased to 50mg BID Continue amlodipine, carvedilol, losartan and isosorbide mononitrate Continue monitor BP Diabetes mellitus, type II: Recent hemoglobin A1c of 5.15 March 2022 continue Novolog sliding scale per protocol Continue monitor BS Hypothyroidism: Continue levothyroxine Chronic thrombocytopenia Platelet 118 today no sign of bleeding Followed with Dr Lyons continue monitor CBC DVT Px SCDs due to low platelet Plan to get heparin today for hemodialysis Code Status Full Code Admission and Anticipated Discharge Date Admission Date: May 11, 2022 Subjective Pt was seen and examined for follow up of sob Sitting in chair with no acute distress watching TV Pt said that her breathing feels much better while using the oxygen Denies any chest pain, palpitation, dizziness and SOB Review of Systems Review of Systems: All systems reviewed & are unremarkable except as noted in Subjective Physical Exam Physical Exam: General- No acute distress Head- atraumatic Eyes- PERRL, EOMI, ENT- oropharynx clear Neck- supple, no JVD Lungs- clear to auscultation Heart- regular rhythm; no murmur Abdomen- normal bowel sounds, soft, nontender Extremities- +edema Neuro- alert, oriented x 3; PERRL, EOMI; no facial palsy; no dysarthria Skin- warm & dry Results & Data Results & Data ([facility]) Vital Signs (Past 12 Hours) Vital Signs Temp Pulse Pulse Resp BP Pulse Ox O2 Del Method 05/12/22 09:10 66 153/81 H 05/12/22 08:00 67 180/102 H 05/12/22 06:19 68 05/12/22 07:36 Nasal Cannula 05/12/22 07:23 36.8 C 66 16 180/100 H 98 Nasal Cannula 05/12/22 06:47 200/115 H 05/12/22 05:41 181/94 H 05/12/22 05:04 187/103 H 05/12/22 03:49 98 Nasal Cannula 05/12/22 03:43 36.8 C 73 20 187/103 H 86 L Room Air 05/12/22 02:02 74 05/12/22 01:44 36.6 C 78 20 180/97 H 93 Room Air 05/12/22 00:40 Room Air 05/12/22 00:33 72 18 182/93 H 95 Room Air O2 Flow Rate 05/12/22 09:10 05/12/22 08:00 05/12/22 06:19 05/12/22 07:36 2 05/12/22 07:23 2 05/12/22 06:47 05/12/22 05:41 05/12/22 05:04 05/12/22 03:49 2 05/12/22 03:43 05/12/22 02:02 05/12/22 01:44 05/12/22 00:40 05/12/22 00:33
[2022-05-12] MEDS: HEPARIN SOD (PORCINE) 1000 UNIT/ML IV SCH ×2 (13:24→13:25)
[2022-05-12] MEDS: hydrALAZINE TAB 50 MG TAB PO SCH ×2 (14:29→19:51)
[2022-05-12] MEDS: ASPIRIN 81 MG ECTAB PO SCH (19:51)
[2022-05-12] MEDS: CINACALCET HCL 30 MG TAB PO SCH (19:51)
[2022-05-12] MEDS: amLODIPine BESYLATE 5 MG TAB PO SCH (19:52)
--- NOTE | 2022-05-12 19:52 | Communication Note ---
Date of Service: May 12, 2022 Made aware by RN of uncontrolled blood pressure since confinement SBP 1 50-200s the last 24 hours. Cardiac rate 60 to 70s AP Hypertensive urgency Change Coreg to Labetalol. Will relay to AM provider.
[2022-05-12] MEDS: LABETALOL HCL 100 MG TAB PO SCH (22:24)
--- NOTE | 2022-05-12 22:55 | Electrocardiogram Report ---
Test Reason : Blood Pressure : / mmHG Vent. Rate : 079 BPM Atrial Rate : 079 BPM P-R Int : 180 ms QRS Dur : 098 ms QT Int : 424 ms P-R-T Axes : 055 043 096 degrees QTc Int : 486 ms Sinus rhythm with occasional Premature ventricular complexes Possible Left atrial enlargement Prolonged QT Abnormal ECG When compared with ECG of 12-APR-2022 16:07, Premature ventricular complexes are now Present Confirmed by Sandeep Mckeon ([id number]) on 05/12/2022 10:55:27 PM Referred By: REFERRED SELF Confirmed By:Sandeep Mckeon
[2022-05-13] MEDS: LEVOTHYROXINE SODIUM 25 MCG TABLET PO SCH (04:04)
[2022-05-13] MEDS ORDERED: HEPARIN SOD (PORCINE) 1000 UNIT/ML IV ONE (07:00)
[2022-05-13] MEDS ORDERED: SODIUM CHLORIDE 0.9% 1000ML 1,000 ML IV PRN (07:00)
[2022-05-13] MEDS: SEVELAMER HCL 800 MG TABLET PO SCH ×3 (07:35→16:28)
[2022-05-13] MEDS: INSULIN ASPART PER UNIT SC SCH ×4 (08:06→20:22)
[2022-05-13 09:16] LABS: BUN Creatinine Ratio 4.4 (10-20); Calcium 9.1 mg/dl (8.5-10.1); Creatinine Clr Calc Pharmacy 12.6 ml/min; Est GFR (African American) 7.8 ml/min; Est GFR (Non-African American) 6.7 ml/min; Potassium 4.2 mmol/L (3.5-5.1)
--- NOTE | 2022-05-13 09:52 | Dialysis Progress Note ---
Date of Service May 13, 2022 Assessment & Plan Admission and Anticipated Discharge Date Admission Date: May 11, 2022 Subjective S---Seen during Dialysis. So far tolerating fine. Pre HD BP was 161 Sys. Says less SOB. had HD yesterday also AVF fine. Physical Exam Constitutional: well developed and well nourished Eyes: EOM intact bilaterally ENMT: Ears: no external ear abnormality Nose: no external nose abnormality Mouth: + dry oral mucous membranes Neck: no nuchal rigidity Respiratory: normal respiratory effort; no respiratory distress and no cough Auscultation: + diminished lung sounds Cardiovascular: Rate/Rhythm: regular rate and regular rhythm Heart Sounds: + murmur Extremities: + edema (1++) Gastrointestinal (Abdomen): Inspection/Auscultation: normal bowel sounds Percussion/Palpation: abdomen soft; abdomen nontender Musculoskeletal: Extremities: strength 5/5 throughout Skin: no rashes, warm and dry Neurologic: sharp, fluent speech, no tremor A/p: 51/M with ESRD--MWF now admitted with SOb and Fluid overload. BP is also high. Rec: High BP is related with Fluid overload. Will do 4hr and take 4 kilo off. May need extra HD Rx to get his Fluid overload better. No need to really change his BP meds. Results & Data ([facility]) Vital Signs (Past 12 Hours) Vital Signs Temp Pulse Pulse Resp BP Pulse Ox O2 Del Method 05/13/22 06:06 68 05/13/22 06:41 36.6 C 68 20 164/94 H 99 Nasal Cannula 05/13/22 04:00 36.5 C 64 20 164/90 H 98 Room Air 05/12/22 23:38 36.8 C 67 18 169/104 H 99 Room Air 05/12/22 23:08 66 O2 Flow Rate 05/13/22 06:06 05/13/22 06:41 1 05/13/22 04:00 05/12/22 23:38 05/12/22 23:08
[2022-05-13] MEDS: HEPARIN SOD (PORCINE) 1000 UNIT/ML IV SCH (10:28)
--- NOTE | 2022-05-13 11:18 | Cardiology Progress Note ---
Date of Service May 13, 2022 Assessment & Plan (1) Fluid overload: (2) ESRD needing dialysis: (3) Systolic CHF, chronic: Plan: 51 year old male with longstanding history of CAD, ischemic CM, prior CABG and ESRD presents with signs and symptoms of volume overload. BP high on presentation. Recommend proceeding with hemodialysis for optimizing his volume status. I discussed case with Dr Cartwright of nephrology who is planing to take of 4 kg today if tolerated. Will reassess BP once volume status improved. I anticipated he can be transitioned to his chronic regimen including carvedilol rather than labetalol. Admission and Anticipated Discharge Date Admission Date: May 11, 2022 Subjective Patient seen in cardiology follow up of shortness of breath. Currently on HD at time of my assessment. Comfortable. Telemetry overnight reveals SR in the 60 to 70s. Review of Systems Review of Systems: All systems reviewed & are unremarkable except as noted in HPI & below Physical Exam Constitutional: well developed Respiratory: mildly reduced BS at the bases Cardiovascular: Rate/Rhythm: regular rate Heart Sounds: normal S1 and normal S2; no murmur Extremities: + edema (1+ edema ) Gastrointestinal (Abdomen): normal bowel sounds, soft, nontender, no hepatosplenomegaly Neurologic: PERRL, EOMI, accommodation nl, no face palsy, no dysarthria Results & Data ([facility]) Vital Signs (Past 12 Hours) Vital Signs Temp Pulse Pulse Pulse Resp BP BP 05/13/22 10:30 67 151/85 H 05/13/22 10:00 59 L 159/73 H 05/13/22 09:30 70 161/81 H 05/13/22 09:15 36.5 C 69 05/13/22 06:06 68 05/13/22 06:41 36.6 C 68 20 164/94 H 05/13/22 04:00 36.5 C 64 20 164/90 H 05/12/22 23:38 36.8 C 67 18 169/104 H Pulse Ox O2 Del Method O2 Flow Rate 05/13/22 10:30 05/13/22 10:00 05/13/22 09:30 05/13/22 09:15 05/13/22 06:06 05/13/22 06:41 99 Nasal Cannula 1 05/13/22 04:00 98 Room Air 05/12/22 23:38 99 Room Air Diagnostic Findings EKG 05/11/22: SR at 79 bpm, QT 486, no significant repolarization changes echocardiogram LVEF 45-50% , chronic RCA territory wall motion abnormalities, unchanged compared to prior.
[2022-05-13] MEDS: LABETALOL HCL 100 MG TAB PO SCH ×2 (13:07→20:20)
[2022-05-13] MEDS: LOSARTAN POTASSIUM 50 MG TAB PO SCH (13:07)
[2022-05-13] MEDS: hydrALAZINE TAB 50 MG TAB PO SCH ×3 (13:08→20:20)
[2022-05-13] MEDS: ISOSORBIDE MONO EXTENDED REL 30 MG TABCR PO SCH (13:08)
[2022-05-13] MEDS: FUROSEMIDE 80 MG TAB PO SCH ×2 (13:09→20:20)
[2022-05-13] MEDS: ATORVASTATIN 40 MG TAB PO SCH (13:09)
[2022-05-13] MEDS: TAMSULOSIN HCL 0.4 MG CAP PO SCH (13:10)
[2022-05-13] MEDS: PANTOprazole 40 MG TAB PO SCH (13:10)
[2022-05-13] MEDS: ASPIRIN 81 MG ECTAB PO SCH (20:20)
[2022-05-13] MEDS: amLODIPine BESYLATE 5 MG TAB PO SCH (20:20)
[2022-05-13] MEDS: CINACALCET HCL 30 MG TAB PO SCH (20:20)
--- NOTE | 2022-05-13 21:19 | Hospitalist Progress Note ---
Date of Service May 13, 2022 Assessment & Plan (1) SOB (shortness of breath): (2) Fluid overload: (3) ESRD needing dialysis: Plan: Present on admission with worsening SOB CTA chest showed Cardiomegaly with interstitial pulmonary edema. Moderate left and small right pleural effusions. CXR showed Cardiomegaly with pulmonary edema. Elevated BNP on admission @ 1355 Lasix 80mg IV given on admission Currently on Lasix 160mg PO BID Nephrology on board plan to HD for 2 hrs today with goal of 2L fluid removes, then schedule for regular HD tomorrow Acute on Chronic CHF Hx Chronic systolic and diastolic CHF Elevated BNP on admission @ 1355 cardiology on board Continue diuretic with Lasix 160mg BID clinically improves Coronary artery disease: S/P CABG Continue carvedilol, atorvastatin, isosorbide Edema Due to volume overload Doppler of LE negative for DVT He had his regular HD today Continue monitor Hypertensive urgency BP elevated on admission Possible to volume overload and anxiety , hospital setting Received IV labetalol 10mg this morniing Hydralazine increased to 50mg BID Continue amlodipine, carvedilol, losartan and isosorbide mononitrate Continue monitor BP Diabetes mellitus, type II: Recent hemoglobin A1c of 5.15 March 2022 continue Novolog sliding scale per protocol Continue monitor BS Hypothyroidism: Continue levothyroxine Chronic thrombocytopenia Platelet 118 no sign of bleeding Followed with Dr Lyons continue monitor CBC DVT Px SCDs due to low platelet Plan to get heparin today for hemodialysis Code Status Full Code Admission and Anticipated Discharge Date Admission Date: May 11, 2022 Subjective Patient seen in cardiology follow up of shortness of breath. Sitting at the edge of the bed with no acute distress Pt said that he feels alot better today He had his regular HD today Denies any chest pain, palpitation, dizziness and SOB Review of Systems Review of Systems: All systems reviewed & are unremarkable except as noted in Subjective Physical Exam Physical Exam: General- No acute distress Head- atraumatic Eyes- PERRL, EOMI, ENT- oropharynx clear Neck- supple, no JVD Lungs- clear to auscultation Heart- regular rhythm; no murmur Abdomen- normal bowel sounds, soft, nontender Extremities- +edema Neuro- alert, oriented x 3; PERRL, EOMI; no facial palsy; no dysarthria Skin- warm & dry Results & Data Results & Data ([place]) Vital Signs (Past 12 Hours) Vital Signs Temp Pulse Pulse Pulse Resp BP BP 05/13/22 19:55 36.8 C 72 18 165/83 H 05/13/22 14:17 72 05/13/22 14:51 36.7 C 71 18 131/73 05/13/22 12:48 36.5 C 67 162/88 H 05/13/22 13:01 36.6 C 74 16 170/82 H 05/13/22 12:30 65 145/80 H 05/13/22 12:00 67 141/79 H 05/13/22 11:30 69 158/83 H 05/13/22 11:00 66 153/83 H 05/13/22 10:30 67 151/85 H 05/13/22 10:00 59 L 159/73 H 05/13/22 09:30 70 161/81 H Pulse Ox O2 Del Method O2 Flow Rate 05/13/22 19:55 93 Room Air 05/13/22 14:17 05/13/22 14:51 94 Room Air 05/13/22 12:48 05/13/22 13:01 95 Nasal Cannula 1 05/13/22 12:30 05/13/22 12:00 05/13/22 11:30 05/13/22 11:00 05/13/22 10:30 05/13/22 10:00 05/13/22 09:30
[2022-05-14 03:21] LABS: HBSAG NON-REACTIVE (NON-REACTIVE)
[2022-05-14] MEDS: LEVOTHYROXINE SODIUM 25 MCG TABLET PO SCH (04:26)
[2022-05-14 06:44] LABS: Hematocrit (blood only) 27.7 % (40.1-51.0); Hemoglobin 9.8 g/dl (14.0-18.0); Mean Platelet Volume 10.4 fL (9.4-12.4); Platelet Count 103 K/uL (130-400); White Blood Count 4.07 K/ul (4.8-10.8)
[2022-05-14 07:03] LABS: Mean Corpuscular Hemoglobin 33.3 pg (25.0-34.0); Mean Corpuscular Hgb Conc 35.4 g/dL (32.0-36.0); Mean Corpuscular Volume 94.2 fL (80.0-100.0); RDW Coefficient of Variation 13.1 % (11.5-14.5); Red Blood Count 2.94 M/uL (4.63-6.08)
[2022-05-14 07:13] LABS: BUN Creatinine Ratio 4.4 (10-20); Calcium 8.7 mg/dl (8.5-10.1); Creatinine Clr Calc Pharmacy 13.8 ml/min; Est GFR (African American) 8.6 ml/min; Est GFR (Non-African American) 7.5 ml/min; Potassium 3.8 mmol/L (3.5-5.1)
[2022-05-14] MEDS: SEVELAMER HCL 800 MG TABLET PO SCH ×2 (07:58→11:23)
[2022-05-14] MEDS: FUROSEMIDE 80 MG TAB PO SCH (07:59)
[2022-05-14] MEDS: ATORVASTATIN 40 MG TAB PO SCH (07:59)
[2022-05-14] MEDS: hydrALAZINE TAB 50 MG TAB PO SCH ×2 (08:00→13:42)
[2022-05-14] MEDS: ISOSORBIDE MONO EXTENDED REL 30 MG TABCR PO SCH (08:00)
[2022-05-14] MEDS: LABETALOL HCL 100 MG TAB PO SCH (08:00)
[2022-05-14] MEDS: LOSARTAN POTASSIUM 50 MG TAB PO SCH (08:00)
[2022-05-14] MEDS: TAMSULOSIN HCL 0.4 MG CAP PO SCH (08:01)
[2022-05-14] MEDS: PANTOprazole 40 MG TAB PO SCH (08:01)
[2022-05-14] MEDS: INSULIN ASPART PER UNIT SC SCH ×2 (08:06→11:25)
[2022-05-14] MEDS ORDERED: ISOSORBIDE MONO EXTENDED REL 30 MG TABCR PO ONE (08:58)
--- NOTE | 2022-05-14 09:35 | Cardiology Progress Note ---
Date of Service May 14, 2022 Assessment & Plan (1) Fluid overload: (2) ESRD needing dialysis: (3) Systolic CHF, chronic: Plan: 51 year old male with longstanding history of CAD, ischemic CM, prior CABG and ESRD presents with signs and symptoms of volume overload. BP high on presentation. Symptoms improved, blood pressure trending toward improvement, with lowest systolic blood pressure reading recently in the 130s, most recent measurement 164/88. Transition off of oral labetalol, and back to his prior to hospital treatment carvedilol 25 twice daily which I think is a better medication for him in the long-term given his history. Increase isosorbide mononitrate from 30 mg daily to 60 mg daily. I favor keeping him in the hospital for ongoing observation of blood pressure, likely repeat dialysis tomorrow to optimize his fluid status. He is not on pharmacologic DVT prophylaxis, receives heparin with dialysis treatments. Admission and Anticipated Discharge Date Admission Date: May 11, 2022 Subjective Patient seen in cardiology follow-up of subjective symptom of shortness of breath, orthopnea. Overall feeling better. Attempt was made to dialyze 4 kg of weight yesterday however he developed abdominal and leg cramping, and only 3 kg were removed per the patient's report. Physical Exam Constitutional: well developed Cardiovascular: Rate/Rhythm: regular rate Heart Sounds: normal S1 and normal S2; no murmur Extremities: + edema (1+ edema ) Gastrointestinal (Abdomen): normal bowel sounds, soft, nontender, no hepatosplenomegaly Neurologic: PERRL, EOMI, accommodation nl, no face palsy, no dysarthria Results & Data ([facility]) Vital Signs (Past 12 Hours) Vital Signs Temp Pulse Pulse Resp BP Pulse Ox O2 Del Method 05/14/22 06:59 36.7 C 68 19 164/88 H 97 Room Air 05/14/22 02:54 36.6 C 71 18 166/84 H 96 Room Air 05/13/22 22:58 36.9 C 77 18 157/75 H 95 Room Air 05/13/22 23:02 72
--- NOTE | 2022-05-14 11:40 | Nephrology Progress Note ---
Date of Service May 14, 2022 Assessment & Plan Admission and Anticipated Discharge Date Admission Date: May 11, 2022 Subjective Subjective S---had Dialysis and about 3.5 kilo removed yesterday. BP post dialysis was good. Says less SOB. Really wants to go home AVF fine. Physical Exam Constitutional: well developed and well nourished B Eyes: EOM intact bilaterally ENMT: Ears: no external ear abnormality Nose: no external nose abnormality Mouth: + dry oral mucous membranes Neck: no nuchal rigidity Respiratory: normal respiratory effort; no respiratory distress and no cough Auscultation: + diminished lung sounds Cardiovascular: Rate/Rhythm: regular rate and regular rhythm Heart Sounds: + murmur Extremities: + edema (1++) Gastrointestinal (Abdomen): Inspection/Auscultation: normal bowel sounds Percussion/Palpation: abdomen soft; abdomen nontender Musculoskeletal: Extremities: strength 5/5 throughout Skin: no rashes, warm and dry Neurologic: sharp, fluent speech, no tremor A/p: 51/M with ESRD--MWF now admitted with SOb and Fluid overload. BP is also high. Rec: High BP is related with Fluid overload. Agree to put him back on Coreg and continue same. His next HD is tomorrow and he wants to do outpt. No need to really change his BP meds. It is not ideal but ok if he really wants to go home. he will get Dialysis tomorrow outpt Results & Data ([facility]) Vital Signs (Past 12 Hours) Vital Signs Temp Pulse Resp BP Pulse Ox O2 Del Method 05/14/22 11:31 36.6 C 67 18 166/85 H 95 Room Air 05/14/22 06:59 36.7 C 68 19 164/88 H 97 Room Air 05/14/22 02:54 36.6 C 71 18 166/84 H 96 Room Air
[2022-05-14] MEDS ORDERED: carvediloL 25 MG TAB PO SCH (21:00)
[2022-05-15] MEDS ORDERED: ISOSORBIDE MONO EXTENDED REL 60 MG TABCR PO SCH (09:00)
--- NOTE | 2022-05-15 16:40 | Discharge Summary ---
Date of Service May 14, 2022 Admission HPI Per Admitting Provider History obtained from patient and records. Medical history is significant for chronic systolic heart failure secondary to ischemic cardiomyopathy, (EF of 45-50% TTE 2021), CAD status post CABG, valvular heart disease (mild MR/TR), pulmonary hypertension, HTN, hyperlipidemia, ESRD on HD, DM2 diet-controlled, hypothyroidism chronic anemia (baseline hemoglobin 10), chronic thrombocytopenia Last confinement October 2021 for hypoxemic respiratory failure secondary to COVID-19 infection. Patient seen last month for shortness of breath/gasping episode causing him to wake up from sleep. No chest pain. Patient belly bloated and legs always swollen. Chest x-ray showed interstitial pulmonary edema. Patient discharged home. Patient returned to ER tonight for recurrent shortness of breath symptoms somewhat worse this week. No weight gain. Patient thinks he is actually losing weight. Patient compliant with home medications. Patient admits to anxiety [place] [facility] [place] Lasix administered at the ER. MEDICAL HISTORY: As above. SURGICAL HISTORY: He has had vascular procedures, CABG, eye surgery FAMILY HISTORY: heart disease, kidney disease PERSONAL/SOCIAL HISTORY: Nonsmoker. No chronic intake of alcoholic beverages. Disabled. Admission Exam Per Admitting Provider GENERAL: Comfortable, slightly anxious, obese, no respiratory distress SKIN: Pallor, warm HEENT: pale palpebral conjunctivae, no ptosis, dry buccal mucosa NECK : Supple, short neck, no tenderness CHEST : Decreased breath sounds, no tenderness HEART : RRR, no obvious murmurs ABDOMEN: Some distention, nontender EXTREMITIES : Bilateral LE swelling, no LE tenderness , no other conspicuous deformities noted NEUROLOGIC : Coherent, no facial asymmetry, no other gross focality Principal Diagnosis SOB (shortness of breath): Fluid overload: ESRD needing dialysis: Acute on Chronic heart failure Coronary artery disease: Edema Hypertensive urgency Diabetes mellitus, type II: Hypothyroidism: Continue levothyroxine Discharge Exam General- No acute distress Head- atraumatic Eyes- PERRL, EOMI, ENT- oropharynx clear Neck- supple, no JVD Lungs- clear to auscultation Heart- regular rhythm; no murmur Abdomen- normal bowel sounds, soft, nontender Extremities- +edema Neuro- alert, oriented x 3; PERRL, EOMI; no facial palsy; no dysarthria Skin- warm & dry Discharge Data Allergies Allergy/AdvReac Type Severity Reaction Status Date / Time Penicillins Allergy Severe ANAPHYLAXIS Verified 05/11/22 22:54 Consultations 05/11/22 22:33 ED Decision to Admit Stat 05/12/22 01:40 Consult Nephrology Routine 05/12/22 03:45 Consult Cardiology Routine Ordered Studies 05/12/22 00:27 CT angio chest PE protocol Urgent US venous doppler LE BI Urgent BILATERAL LOWER EXTREMITY VENOUS DOPPLER HISTORY: Acute pain and swelling of the lower legs leg swelling COMPARISON STUDY: 03/30/2018. FINDINGS: There is normal compressibility, flow, and augmentation within the bilateral lower extremity deep venous systems. Subcutaneous edema. IMPRESSION: No DVT within the right or left lower extremity. ACT 112: Negative or not required by law. Electronically signed by: Oliverio Coronado M.D. 05/12/2022 7:11 AM Dictated:05/12/22709 Transcribed: 05/12/22709 CT ANGIOGRAPHY OF THE CHEST, PULMONARY EMBOLUS PROTOCOL CLINICAL HISTORY: Shortness of breath. COMPARISON STUDY: Chest radiograph May 11, 2022. Chest CT January 12, 2014. TECHNIQUE: Following IV administration of 120 mL of Optiray, helical axial images of the chest were obtained utilizing the pulmonary embolus protocol. Maximal intensity projections and sagittal and coronal reformats were viewed on an independent 3D workstation. IV contrast was administered without complication. Automated exposure control was utilized for the study. A dose lowering technique was utilized adhering to the principles of ALARA. CT DOSE: 845.49 mGy.cm FINDINGS: No pulmonary emboli are identified although this exam is mildly compromised by respiratory motion. Median sternotomy and postoperative findings from bypass grafting are noted. There is mild cardiomegaly. Extensive coronary artery calcification. No thoracic aortic dissection is present. Moderate left and small right pleural effusions are present. Interlobular septal thickening is indicative of interstitial edema. Several irregular nodular opacities within lungs measure up to 6 mm. Thoracic lymphadenopathy is improved since CT of January 12, 2014. Old mild T5 compression deformity is unchanged. Mild splenomegaly has slightly decreased. There is no pneumothorax. IMPRESSION: 1. No pulmonary emboli identified although exam mildly compromised by respiratory motion. 2. Cardiomegaly with interstitial pulmonary edema. Moderate left and small right pleural effusions. 3. Several nodular opacities within the lungs which measure up to 6 mm. These likely reflect alveolar edema. An infectious process could appear similar although is considered less likely. Follow-up chest CT in 3 months to ensure resolution is recommended. ACT 112: Negative or not required by law. Electronically signed by: Abhinav Hopkins M.D. 05/12/2022 7:04 AM Dictated:05/12/2256 Transcribed: 05/12/22655 XR chest 1V portable HISTORY: 51 years-old Male sob acute shortness of breath COMPARISON: CTA chest 05/12/2022 TECHNIQUE: Portable AP view of the chest FINDINGS: Cardiac silhouette is enlarged. Prior median sternotomy with CABG. Pulmonary vascular congestion with interstitial coarsening. Layering pleural effusions with minimal bibasilar densities. Left subclavian vascular stent graft. Bones appear grossly intact. IMPRESSION: 1. Cardiomegaly with pulmonary edema. 2. Left greater than right pleural effusions. ACT 112: Negative or not required by law. The above report was generated using voice recognition software. It may contain grammatical, syntax or spelling errors. Electronically signed by: Oliverio Coronado M.D. 05/12/2022 7:58 AM Dictated:05/12/22756 Transcribed: 05/12/22756 Hospital Course (1) SOB (shortness of breath): (2) Fluid overload: (3) ESRD needing dialysis: Present on admission with worsening SOB CTA chest showed Cardiomegaly with interstitial pulmonary edema. Moderate left and small right pleural effusions. CXR showed Cardiomegaly with pulmonary edema. Elevated BNP on admission @ 1355 Lasix 80mg IV given on admission Currently on Lasix 160mg PO BID Nephrology on board Last HD was [facility] where 3L fluid removed and Next HD is scheduled for tomorrow Acute on Chronic CHF Hx Chronic systolic and diastolic CHF Elevated BNP on admission @ 1355 cardiology on board Continue diuretic with Lasix 160mg BID Case discussed with nephrology that recommended to continue lasix outpatient dose with 160mg AM and 80mg PM Ok from nephrology to discharge home Coronary artery disease: S/P CABG Continue carvedilol, atorvastatin, isosorbide Edema Due to volume overload Doppler of LE negative for DVT He had his regular HD today Continue monitor Hypertensive urgency BP elevated on admission Possible to volume overload and anxiety , hospital setting Received IV labetalol 10mg x1 Continue amlodipine, carvedilol, losartan Hydralazine increased to 50mg BID Continue amlodipine, carvedilol, losartan isosorbide mononitrate increased to 60mg Continue monitor BP Diabetes mellitus, type II: Recent hemoglobin A1c of 5.15 March 2022 continue Novolog sliding scale per protocol Continue monitor BS Hypothyroidism: Continue levothyroxine Chronic thrombocytopenia Platelet 118 no sign of bleeding Followed with Dr Lyons continue monitor CBC DVT Px SCDs due to low platelet Plan to get heparin today for hemodialysis Code Status Full Code Total Time Total Time Spent Total Time Spent (In Minutes): 40 minutes Discharge Plan Discharge Items Patient Disposition: Home - Self-Care Reason For Visit: CHF Discharge Diagnosis: SOB (shortness of breath): Fluid overload: ESRD needing dialysis: Acute on Chronic heart failure Coronary artery disease: Edema Hypertensive urgency Diabetes mellitus, type II: Hypothyroidism: Continue levothyroxine Condition on Discharge: Fair Activity: Resume your previous activity Non-emergency contact: Primary Care Provider and Release Engineer Call non-emergency contact if: you have any medication questions and your symptoms worsen Follow-up/Referrals: Dalton Marcelino MD [Primary Care Provider] - 05/21/22 11:00 am (Date & Time 05/21/2022 11:00 AM Provider Dalton Marcelino III, MD Department [facility] ) Diet: Dialysis Renal Addtl Attending Provider Instructions: Follow up with your primary care provider 05/21/2022 @ 11:00 AM Dalton Marcelino III, MD Department [facility] Follow up with your nephrology Next hemodialysis schedule for tomorrow Continue monitor your blood pressure and bring your blood pressure log at your next appointment with your provider Isosorbide mononitrate increased from 30 mg daily to 60 mg daily. Fall precaution Seek medical attention if you develop any shortness of breath Pending Studies at Discharge: No Stand-Alone Forms: My [employer], Smoking Cessation Medications and DC Order Prescriptions: New isosorbide mononitrate 60 mg Tablet Extended Release 24 Hr 60 mg PO QAM Qty: 30 0RF hydralazine 50 mg tablet 50 mg PO BID Qty: 60 0RF Continued levothyroxine 25 mcg Tablet 25 mcg PO DAILYBB Qty: 0 diphenhydramine HCl [Benadryl] 25 mg Capsule 25 mg PO DAILY PRN (Reason: Allergic Reaction) Qty: 0 sevelamer carbonate [Renvela] 800 mg Tablet 800 - 1,600 mg PO DIRECTED Qty: 0 Label Comments: TAKE 5 TABLETS [facility] MEALS Rx Instructions: Take 1600mg with meals Take 800mg with snacks furosemide 80 mg Tablet 160 mg PO QAM Qty: 0 Rx Instructions: Take 160mg in the AM Take 80mg in the PM tamsulosin 0.4 mg Capsule 0.4 mg PO QAM Qty: 0 pantoprazole [Protonix] 40 mg Tablet,Delayed Release (Dr/Ec) 40 mg PO QAM carvedilol 25 mg tablet 25 mg PO BID aspirin 81 mg Tablet,Delayed Release (Dr/Ec) 81 mg PO HS atorvastatin 80 mg tablet 80 mg PO QAM amlodipine 10 mg tablet 10 mg PO QAM cinacalcet [Sensipar] 30 mg Tablet 30 mg PO HS furosemide 80 mg tablet 80 mg PO QPM Velphoro 500 mg tablet,chewable 1,000 mg PO TIDM losartan 50 mg tablet 50 mg PO DAILY Velphoro 500 mg tablet,chewable 500 mg PO .WITH SNACKS Discontinued isosorbide mononitrate 30 mg Tablet Extended Release 24 Hr 30 mg PO QAM Qty: 0 hydralazine 25 mg Tablet 25 mg PO BID Discharge Orders: Discharge Order (Routine); Ordered 05/14/22 Ordered By: Jefferson Castro Admission Data Admit Date/Time: 05/11/22 23:40 Attending Provider: Jefferson Castro Admit Provider: Manuel Yang Primary Care Provider: Dalton Marcelino Other Providers: Manuel Yang ; Kacey Roberson ; Jason Cartwright ; Leyda Sanchez ; Demarco Sahu ; Cameron Sumner ; Sheri Roblero ; Felipe Christianson ; Milo Brown ; Anurag Dial ; Deep Ro ; [place] ; Wade Camacho ; Digna Lorenzo ; Gail Woodall ; Cassandra Hanson ; Jose Guevara Other Interventions: Discharge Summary Assessment (RN) Last Done: 05/14/22 15:06
== END 2022-05-14 15:34 | disposition home or self-care (01) | DRG 291 ==
LOC: ED 19:51 → 2S 23:40